=== PATIENT | male | born 1970 | race Caucasian/White ===

== ENCOUNTER 2020-03-23 07:59 | Outpatient (CLI) | payer OTHER, SELFPAY ==
--- NOTE | ~2020-03-23 | XR_ITS ---
XR shoulder LT min 2V 03/23/2020 08:28 INDICATION: Left shoulder pain PROCEDURE: 4 views left shoulder COMPARISON: No prior studies for comparison. FINDINGS: Fracture, dislocation or subluxation is not identified. There are mild degenerative changes of the acromioclavicular joint. The soft tissues appear within normal limits. No foreign bodies are identified. IMPRESSION: 1: Mild osteoarthritis of the acromioclavicular joint. Reviewed, dictated and finalized at location A.
[2020-03-23 08:21] LABS: Basophils Percent Auto 0.4 % (0.2-1.2); Eosinophils Absolute Auto 0.1 K/mm3 (0-0.3); Hematocrit 49.1 % (42.0-52.0); Hemoglobin 16.3 g/dL (14.0-18.0); Immature Granulocyte Absolute 0.03 K/mm3 (0.00-0.031); Immature Granulocyte Percent A 0.3 % (0-0.5); Lymphocytes Percent Auto 17.6 % (18.3-44.2); Mean Corpuscular HGB Conc 33.2 g/dl (32-36); Mean Corpuscular Hemoglobin 29.2 pg (26-34); Mean Corpuscular Volume 87.8 fl (80-100); Mean Platelet Volume 11.9 fl (7.4-10.4); Monocytes Absolute Auto 0.9 K/mm3 (0.1-0.6); Monocytes Percent Auto 7.7 % (2.6-8.5); Neutrophils Absolute Auto 8.3 K/mm3 (1.3-6.7); Platelet Count Result 173 k/mm3 (150-375); Red Blood Count 5.59 M/mm3 (4.6-6.20); Red Cell Distribution Width 13.3 % (11.5-14.5); White Blood Count 11.4 K/mm3 (4.5-10.0)
[2020-03-23 08:35] LABS: Blood Urea Nitrogen 12 mg/dL (9-20); Calcium 9.2 mg/dL (8.4-10.2); Carbon Dioxide 26 mmol/L (22-30); Chloride 105 mmol/L (98-107); Estimated Glomerular Filt Rate > 60; Glucose 108 mg/dL (75-110); Sodium 139 mmol/L (137-145)
== END 2020-03-23 08:00 | disposition home or self-care (01) ==
LOC: ANHLAB 08:00
PROVIDERS: PCP Family Medicine; Visit Provider Nurse Practitioner Family
DX: R53.83 Other fatigue (principal); M19.012 Primary osteoarthritis, left shoulder
CPT/HCPCS: 36415; 73030; 80048; 84443; 85025

== ENCOUNTER 2020-04-09 08:10 | Outpatient (CLI) | payer OTHER, SELFPAY ==
[2020-04-09 08:49] LABS: Basophils Percent Auto 0.3 % (0.2-1.2); Eosinophils Absolute Auto 0.2 K/mm3 (0-0.3); Eosinophils Percent Auto 1.2 % (0-4.4); Hematocrit 48.5 % (42.0-52.0); Hemoglobin 15.9 g/dL (14.0-18.0); Immature Granulocyte Absolute 0.05 K/mm3 (0.00-0.031); Immature Granulocyte Percent A 0.4 % (0-0.5); Lymphocytes Percent Auto 19.4 % (18.3-44.2); Mean Corpuscular HGB Conc 32.8 g/dl (32-36); Mean Corpuscular Hemoglobin 29.2 pg (26-34); Mean Platelet Volume 12.2 fl (7.4-10.4); Monocytes Absolute Auto 0.9 K/mm3 (0.1-0.6); Monocytes Percent Auto 7.5 % (2.6-8.5); Neutrophils Absolute Auto 8.8 K/mm3 (1.3-6.7); Neutrophils Percent Auto 71.2 % (45.5-73.1); Platelet Count Result 164 k/mm3 (150-375); Red Blood Count 5.45 M/mm3 (4.6-6.20); Red Cell Distribution Width 13.7 % (11.5-14.5); White Blood Count 12.4 K/mm3 (4.5-10.0)
[2020-04-09 10:15] LABS: Vitamin D 25 Hydroxy 48.7 ng/mL
[2020-04-12 23:53] LABS: Testosterone Total 581 ng/dL (250-1100)
== END 2020-04-09 08:11 | disposition home or self-care (01) ==
PROVIDERS: PCP Family Medicine; Visit Provider Nurse Practitioner Family
DX: F10.11 Alcohol abuse, in remission (principal); R53.83 Other fatigue; D72.829 Elevated white blood cell count, unspecified
CPT/HCPCS: 36415; 82306; 82607; 84403; 85025

== ENCOUNTER 2020-05-25 06:51 | Outpatient (CLI) | payer OTHER, SELFPAY ==
[2020-05-25 07:34] LABS: Hematocrit 44.4 % (42.0-52.0); Hemoglobin 14.8 g/dL (14.0-18.0); Mean Corpuscular HGB Conc 33.3 g/dl (32-36); Mean Corpuscular Hemoglobin 29.1 pg (26-34); Mean Corpuscular Volume 87.4 fl (80-100); Mean Platelet Volume 11.5 fl (7.4-10.4); Platelet Count Result 163 k/mm3 (150-375); Red Blood Count 5.08 M/mm3 (4.6-6.20); Red Cell Distribution Width 13.8 % (11.5-14.5); White Blood Count 10.1 K/mm3 (4.5-10.0)
== END 2020-05-25 06:52 | disposition home or self-care (01) ==
PROVIDERS: PCP Family Medicine; Visit Provider Nurse Practitioner Family
DX: D72.829 Elevated white blood cell count, unspecified (principal)
CPT/HCPCS: 36415; 85027

== ENCOUNTER 2020-09-30 07:46 | Outpatient (CLI) | payer OTHER, SELFPAY ==
[2020-09-30 09:07] LABS: Anion Gap 7 mmol/L (8-16); Blood Urea Nitrogen 14 mg/dL (9-20); Calcium 9.4 mg/dL (8.4-10.2); Carbon Dioxide 29 mmol/L (22-30); Chloride 103 mmol/L (98-107); Estimated Glomerular Filt Rate > 60; Glucose 113 mg/dL (75-110); Potassium 4.1 mmol/L (3.4-5.0); Sodium 139 mmol/L (137-145)
[2020-09-30 09:24] LABS: Add Urine Microscopic? YES; Appearance Urine Clear (Clear); Bilirubin Urine Negative (Negative); Blood Urine Negative (Negative); Color Urine Yellow (Yellow); Glucose Urine UA Negative (Negative); Ketones Urine Trace mg/dL (Negative); Leukocyte Esterase Ur Negative LEU/UL (Negative); Mucus Urine Few /lpf; Nitrate Urine Negative (Negative); Protein Urine Negative (Negative); RBC Urine 0-2 /hpf (0-2); Specific Grav Ur 1.025 (1.001-1.035); Squamous Epithelial Cell Urine Rare /hpf (Few); Transitional Epi Cells Urine Rare /hpf (None Seen); Urobilinogen Urine Negative mg/dL (<2.0); WBC Urine 0-3 /hpf
== END 2020-09-30 07:47 | disposition home or self-care (01) ==
PROVIDERS: PCP Family Medicine; Visit Provider Nurse Practitioner Family
DX: R35.1 Nocturia (principal)
CPT/HCPCS: 36415; 80048; 81001

== ENCOUNTER 2021-04-02 14:05 | Emergency (ER) | payer OTHER, SELFPAY ==
--- NOTE | ~2021-04-02 | CT_ITS ---
EXAMINATION: CT BRAIN W/O DATE: 04/02/2021 19:35 INDICATION: Headache TECHNIQUE: Computed tomography (CT) of the head was performed without intravenous contrast. The dose- length product was 605.33 mGy-cm. Automated exposure control and iterative reconstruction technique w ere employed. COMPARISON: No prior studies for comparison. FINDINGS: Normal brain parenchymal volume for age. Normal silva-white differentiation. No acute intrac ranial hemorrhage, infarction, mass or mass effect. No ventriculomegaly or midline shift. Midline sagittal images demonstrate a normal corpus callosum, c raniovertebral junction and sella turcica. Basilar cisterns are patent. There is moderate sinus disease of the left maxillary, ethmoid and frontal sinuses. Mastoids are pneu matized. No depressed skull fractures. IMPRESSION: 1. No acute intracranial abnormality. 2: Moderate sinusitis. Reviewed, dictated and finalized at location A.
--- NOTE | ~2021-04-02 | XR_ITS ---
EXAMINATION: XR chest 2V DATE: 04/02/2021 15:15 INDICATION: Anterior chest pain. Shortness of breath. TECHNIQUE: Frontal and lateral views of the chest were obtained. COMPARISON: Chest 2 views 03/12/2018, CT abdomen and pelvis 06/16/2017 FINDINGS: The lungs are hyperexpanded, consistent with emphysema. No pneumonia, pleural effusion, or pneumothorax. The heart size is normal. IMPRESSION: 1. Emphysema. Reviewed, dictated and finalized at location A. IMPRESSION: 1. Emphysema.
[2021-04-02 15:00] VITALS: BP 123/82; PULSE 88; RESP 17; TEMP 36.8; O2SAT 100
--- NOTE | 2021-04-02 15:04 | ECG_ITS ---
Measurements Intervals [place] Rate: 80 P: 67 MI: 129 QRS: -43 QRSD: 90 T: 61 QT: 360 QTc: 416 Interpretive Statements SINUS RHYTHM WITH SINUS ARRHYTHMIA ATRIAL PREMATURE COMPLEX LEFT AXIS DEVIATION INCOMPLETE RIGHT BUNDLE BRANCH BLOCK BORDERLINE ECG Electronically Signed On 04-02-2021 15:14:10 CDT by De Esquivel D.O.
[2021-04-02 17:01] VITALS: BP 119/76; PULSE 79; RESP 17; O2SAT 97
[2021-04-02 17:23] LABS: Basophils Percent Auto 0.4 % (0.2-1.2); Eosinophils Absolute Auto 0.1 K/mm3 (0-0.3); Eosinophils Percent Auto 0.7 % (0-4.4); Hemoglobin 16.4 g/dL (14.0-18.0); Immature Granulocyte Absolute 0.03 K/mm3 (0.00-0.031); Immature Granulocyte Percent A 0.3 % (0-0.5); Lymphocytes Absolute Auto 2.21 K/mm3 (0.9-3.2); Mean Corpuscular HGB Conc 33.5 g/dl (32-36); Mean Corpuscular Hemoglobin 29.4 pg (26-34); Mean Platelet Volume 11.4 fl (7.4-10.4); Monocytes Absolute Auto 0.7 K/mm3 (0.1-0.6); Monocytes Percent Auto 6.4 % (2.6-8.5); Neutrophils Percent Auto 72.2 % (45.5-73.1); Platelet Count Result 182 k/mm3 (150-375); Red Blood Count 5.57 M/mm3 (4.6-6.20); Red Cell Distribution Width 13.1 % (11.5-14.5)
[2021-04-02 17:31] LABS: Add Urine Microscopic? YES; Appearance Urine Clear (Clear); Bilirubin Urine Negative (Negative); Blood Urine 1+ (Negative); Color Urine Yellow (Yellow); Glucose Urine UA Negative (Negative); Ketones Urine Negative (Negative); Leukocyte Esterase Ur Negative LEU/UL (Negative); Mucus Urine Rare /lpf; Nitrate Urine Negative (Negative); Protein Urine 1+ mg/dL (Negative); Squamous Epithelial Cell Urine Rare /hpf (Few); WBC Urine 0-3 /hpf
[2021-04-02 17:33] LABS: Alanine Aminotransferase 23 U/L (4-50); Albumin Level 4.6 g/dL (3.5-5.1); Alkaline Phosphatase 80 U/L (38-126); Anion Gap 8 mmol/L (8-16); Aspartate Amino Transferase 37 U/L (17-59); Bilirubin,Total 0.9 mg/dL (0.2-1.3); Blood Urea Nitrogen 21 mg/dL (9-20); Calcium 9.7 mg/dL (8.4-10.2); Carbon Dioxide 31 mmol/L (22-30); Chloride 101 mmol/L (98-107); Estimated CRCL calculation 93 ml/min; Estimated Glomerular Filt Rate > 60; Glucose 91 mg/dL (75-110); Sodium 140 mmol/L (137-145)
[2021-04-02 17:37] LABS: Specific Grav Ur 1.032 (1.001-1.035)
--- NOTE | 2021-04-02 18:07 | ED.HA ---
HPI - Headache General Chief Complaint: Headache Stated Complaint: headache x 2 months/lethargy Time Seen by Provider: 04/02/21 17:01 History of Present Illness HPI Narrative: Patient is a 50-year-old male who presents with multiple complaints. Patient reports headache x2 months, reports intermittent shortness of breath, and states he feels dehydrated. Patient reports he works in the heat and was only able to work half day today. He reports general malaise. He denies significant medical history. He denies taking medications daily. MD elicited complaint: headache Related Data Home Medications Medication Instructions Recorded Confirmed sumatriptan succinate 50 mg tablet 50 mg PO ONCE 09/15/19 01/18/21 Allergies Allergy/AdvReac Type Severity Reaction Status Date / Time pseudoephedrine Allergy Unknown Unknown Verified 04/02/21 15:04 Review of Systems Review of Systems: Narrative: CONSTITUTIONAL: Denies fever, chills, or sweats. EYES: Denies visual changes, redness, or discharge. ENT: Denies rhinorrhea, congestion, sore throat, or otalgia. CARDIOVASCULAR: Denies chest pain, palpitations, or edema. RESPIRATORY: Denies cough, reports intermittent dyspnea. GASTROINTESTINAL: Denies abdominal pain, nausea, vomiting, or diarrhea. GENITOURINARY: Denies dysuria or hematuria. SKIN: Denies rash or itching. MUSCULOSKELETAL: Denies back pain, joint pain, or myalgia. NEUROLOGIC: Reports headache, denies numbness, dizziness, or weakness. PSYCHIATRIC: Denies anxiety or depression. 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 Gender identity (if verbalized by the patient): Male Comments At the time of signature, I have reviewed and agree with nursing past medical, surgical, social, and family history unless otherwise noted. Please see nursing chart for further information. There is no relevant family history pertinent to the presenting complaint. Exam Narrative: Exam Narrative: GENERAL: Well-appearing, well-nourished, and in no acute distress. HEAD: Normocephalic, atraumatic. EYES: EOMI. No redness or drainage. Conjunctiva are normal. ENT: Mucous membranes pink and moist. Nares clear. No rhinorrhea. TMs normal bilaterally. Throat normal. Maxillary and frontal sinus tenderness with palpation uvula midline. NECK: AROM. Supple. No lymphadenopathy. CHEST: No respiratory distress. Clear to auscultation. HEART: Regular rate and rhythm. GI: Soft, nontender without rebound, or guarding. No distention. Bowel sounds normal in all quadrants. MUSCULOSKELETAL: No bony tenderness. EXTREMITIES: Normal range of motion. No edema. SKIN: Warm, dry, no rash. NEURO: No focal deficits. Alert and oriented x3. Gait steady. PSYCH: Normal affect. No signs of depression or anxiety. Course Vital Signs Vital signs: Vital Signs Temperature 36.8 C 04/02/21 15:00 Pulse Rate 88 04/02/21 15:00 Respiratory Rate 17 04/02/21 15:00 Blood Pressure 123/82 04/02/21 15:00 Pulse Oximetry 100 04/02/21 15:00 Temperature 36.8 C 04/02/21 15:00 Pulse Rate 79 04/02/21 17:01 Respiratory Rate 17 04/02/21 17:01 Blood Pressure 119/76 04/02/21 17:01 Pulse Oximetry 97 04/02/21 17:01 Reviewed MDM - Headache MDM Narrative Medical decision making narrative: Patient CT reports moderate sinusitis, patient has been sympto
[2021-04-02 18:38] LABS: Troponin I < 0.012 ng/mL (0.000-0.034)
[2021-04-02 18:54] LABS: Lipase 85 U/L (23-300)
[2021-04-02] MEDS: SODIUM CHLORIDE 0.9% IV 1,000 ML 999 ML IV CONT (19:14)
[2021-04-02 19:25] LABS: Alanine Aminotransferase 24 U/L (4-50); Albumin Level 4.7 g/dL (3.5-5.1); Alkaline Phosphatase 84 U/L (38-126); Aspartate Amino Transferase 40 U/L (17-59)
[2021-04-02] MEDS: KETOROLAC 30 MG/ML VIAL (*BKC) IV PUSH (20:16)
[2021-04-02 21:05] VITALS: BP 138/87; PULSE 72; RESP 18; TEMP 37; O2SAT 99
== END 2021-04-02 21:05 | disposition home or self-care (01) ==
PROVIDERS: Emergency Medicine; Emergency Provider Nurse Practitioner; PCP Family Medicine
DX: J01.10 Acute frontal sinusitis, unspecified (principal); F17.210 Nicotine dependence, cigarettes, uncomplicated
CPT/HCPCS: 36415; 70450; 71046; 80053; 80076; 81001; 83690; 84484; 85025; 93005; 96361; 96374; 99284; J1885; J7030

== ENCOUNTER 2021-05-04 07:10 | Emergency (ER) | payer OTHER, SELFPAY ==
[2021-05-04 07:14] VITALS: BP 135/79; PULSE 92; RESP 16; TEMP 36.6; O2SAT 99
--- NOTE | 2021-05-04 08:14 | PC.NURSE ---
pt reporting pain to L leg, and that his L foot is always asleep . pt has hx of multiple slipped discs in neck and back. pt saw chiropracter last night and didn't receive any relief. pt taking norco at home for pain, has seen pain management previously for this complaint and states is in process of getting back to it . pt resting comfortably in stretcher with no complaints. pt last took norco at 0530 today.
--- NOTE | 2021-05-04 08:40 | PC.NURSE ---
pt reports no loss of bladder/bowel control nor difficulty urinating/defecating.
[2021-05-04] MEDS: KETOROLAC 30 MG/ML VIAL (*BKC) IM (09:13)
--- NOTE | 2021-05-04 09:49 | ED.BACK ---
HPI - Back Pain/Injury General Chief Complaint: Back Pain/Injury Stated Complaint: low back pain radiating to left leg Time Seen by Provider: 05/04/21 08:56 History of Present Illness HPI Narrative: Patient presents with low back pain. Patient reports a history of low back pain usually radiates down his right leg however this episode is radiating down his left leg. Pain is primarily in his left lower back, is achy, reports is difficult to sit down for any extended period of time as it makes his pain worse. Reports prior MRI findings showing low back problems . Reports paresthesias in his left leg denies any difficulty with his bowel or bladder. Denies any IV drug use denies major changes in weight. Related Data Allergies Allergy/AdvReac Type Severity Reaction Status Date / Time pseudoephedrine Allergy Unknown Unknown Verified 05/04/21 08:23 Review of Systems Review of Systems: CONSTITUTIONAL: Denies fever, chills, or sweats. EYES: Denies visual changes, redness, or discharge. ENT: Denies rhinorrhea, congestion, sore throat, or otalgia. CARDIOVASCULAR: Denies chest pain, palpitations, or edema. RESPIRATORY: Denies cough or dyspnea. GASTROINTESTINAL: Denies abdominal pain, nausea, vomiting, or diarrhea. GENITOURINARY: Denies dysuria or hematuria. SKIN: Denies rash or itching. MUSCULOSKELETAL: Denies joint pain, or myalgia. NEUROLOGIC: Denies headache, numbness, dizziness, or weakness. PSYCHIATRIC: Denies anxiety or depression. 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 Gender identity (if verbalized by the patient): Male Exam Narrative: GENERAL: Well-appearing, well-nourished, and in no acute distress. HEAD: Normocephalic, atraumatic. EYES: PERRLA and EOMI. ENT: Nares clear, no rhinorrhea or epistaxis. Mucous membranes moist. NECK: Supple. No masses. No JVD EXTREMITIES: Normal range of motion. No edema. Back: Tenderness palpation of the left lumbar paraspinal area no midline tenderness SKIN: Warm, dry, no rash. NEURO: 5 out of 5 strength in bilateral lower extremities with dorsi/plantarflexion, knee flexion/extension. Patient has 2+ reflexes symmetric at the knee. alert and oriented x3. PSYCH: Normal mood and affect. Course Reevaluation(s) Reevaluation #1: Patient ports mild improvement in the ER with supportive therapies. Patient comfortable with continuing supportive therapies at home and following up with specialty care patient reports she has all the contact information as he has previous seen a spine surgeon. Date: 05/04/21 Time: 10:00 Vital Signs Vital signs: Vital Signs Temperature 36.6 C 05/04/21 07:14 Pulse Rate 92 05/04/21 07:14 Respiratory Rate 16 05/04/21 07:14 Blood Pressure 135/79 05/04/21 07:14 Pulse Oximetry 99 05/04/21 07:14 Temperature 36.6 C 05/04/21 07:14 Pulse Rate 88 05/04/21 10:20 Respiratory Rate 16 05/04/21 10:20 Blood Pressure 144/77 H 05/04/21 10:20 Pulse Oximetry 100 05/04/21 10:20 MDM - Back Pain/Injury MDM Narrative Medical decision making narrative: H&P as above, vss, pt looks clinically well, exam without focal neurological deficits, prior imaging reviewed, additional labs/img considered, symptomatic relief available as needed, on reevaluation pt continues
[2021-05-04 10:20] VITALS: BP 144/77; PULSE 88; RESP 16; O2SAT 100
== END 2021-05-04 10:38 | disposition home or self-care (01) ==
PROVIDERS: Emergency Provider Emergency Medicine; PCP Family Medicine
DX: M54.42 Lumbago with sciatica, left side (principal); F17.200 Nicotine dependence, unspecified, uncomplicated
CPT/HCPCS: 96372; 99283; J1885

== ENCOUNTER 2021-06-25 09:28 | Outpatient (CLI) | payer OTHER, SELFPAY ==
--- NOTE | ~2021-06-25 | XR_ITS ---
XR hip RT min 2V DATE: 06/25/2021 09:52 INDICATION: Right hip pain. No injury. TECHNIQUE: AP and lateral views of right hip COMPARISON: None FINDINGS: No fracture, dislocation, avascular necrosis or bone destruction. Right hip joint space is relatively well preserved. The pubic symphysis and sacroiliac joints appear intact. IMPRESSION: No significant abnormality Reviewed, dictated and finalized at location B. IMPRESSION: No significant abnormality
== END 2021-06-25 09:29 | disposition home or self-care (01) ==
PROVIDERS: PCP Family Medicine; Visit Provider Nurse Practitioner Family
DX: M25.551 Pain in right hip (principal)
CPT/HCPCS: 73502

== ENCOUNTER 2022-03-24 15:30 | Outpatient (CLI) | payer OTHER, SELFPAY ==
--- NOTE | ~2022-03-24 | XR_ITS ---
XR abdomen/kub 1V 03/24/2022 16:23 Indication: Microscopic hematuria Procedure: KUB Comparison: No prior studies for comparison. Findings: There are left renal stones. Bowel gas pattern is nonobstructive. There is a left pseudoart iculation at L5-S1. Mild osteoarthritis of the hips. There is lower lumbar spondylosis. Nonobstructiv e bowel gas pattern with moderate colonic fecal loading. Impression: 1: Left nephrolithiasis. Reviewed, dictated and finalized at location A. Impression: 1: Left nephrolithiasis.
--- NOTE | ~2022-03-24 | CT_ITS ---
EXAMINATION: CT abdomen pelvis wo/w con DATE: 03/24/2022 16:23 INDICATION: Microscopic hematuria TECHNIQUE: Computed tomography (CT) of the abdomen and pelvis was performed without and subsequently with 130 CC Omnipaque 300 intravenous contrast. Automated exposure control and iterative reconstructi on technique were employed. Exam dose: 1213.76 mGy-cm total exam DLP. COMPARISON: 03/24/2022 KUB 06/16/2017 CT abdomen and pelvis FINDINGS: Mild discoid atelectasis or scarring at the medial segment of the middle lobe. The lung bas es are clear of infiltrate or consolidation. Normal heart size. No pericardial or pleural effusion. Approximately 3 mm mid right renal nonobstructing calculus. Approximately 2.5 mm lower pole right renal nonobstructing calculus. 3 x 4.6 mm and 3.6 x 5 mm lower pole left renal nonobstructing calculi. No ureteral calculus or hydroureteronephrosis. There is prostate enlargement and calcification. The urinary bladder appears unremarkable. Scattered small hepatic cysts of left and right hepatic lobe, the largest approximately 6 mm. The gallbladder appears normal. No bile duct or pancreatic duct dilatation. No pancreatic mass lesion or calcification. Normal splenic size. Normal morphology of the adrenal glands. No renal mass lesion. Normal caliber of the abdominal aorta. No intraperitoneal or retroperitoneal or pelvic mass lesion or adenopathy Severe degenerative disc disease at L4-5. There is moderate degenerative disc disease of the remainde r of the lumbar spine and some degenerative change of the lower thoracic spine. Bilateral moderately prominent osteoarthritis of the hips. No suspicious osteolytic or osteoblastic lesions are noted. Or ascites. Normal appendix. No bowel obstruction, bowel wall thickening, pneumatosis or intraperitoneal free air . IMPRESSION: Mild bilateral nonobstructive nephrolithiasis Prostate enlargement and calcification Scattered hepatic small cysts Reviewed, dictated and finalized at Location A. Reviewed, dictated and finalized at location B.
[2022-03-24 15:51] LABS: Estimated Glomerular Filt Rate > 60
== END 2022-03-24 15:31 ==
LOC: MICIMG 15:32
PROVIDERS: PCP Family Medicine; Visit Provider Urology
DX: R31.29 Other microscopic hematuria (principal); N20.0 Calculus of kidney; N40.1 Benign prostatic hyperplasia with lower urinary tract symptoms; K76.89 Other specified diseases of liver
CPT/HCPCS: 74018; 74178; Q9967

== ENCOUNTER 2022-04-12 08:12 | Outpatient (CLI) | payer OTHER, SELFPAY ==
--- NOTE | 2022-04-15 19:31 | WPDPFTINT ---
PFT Procedure Performed PFT Procedure Performed Plethysmography (Lung Vol) Diffusing Cap (DLCO) Flow Vol Loop Spirometry w/o Bronchodil PFT Interpretation DOS: 04/12/2022 REQUESTING: Brittany Payne NP REASON FOR TESTING: Abnormal chest x-ray PULMONARY FUNCTION TESTS Results are reliable and reproducible. Spirometry: FEV1 is 67%, 2.77 L, below normal range. FVC is 79%, 4.18 L, normal. The FEV1/FVC ratio is 66%, below normal, consistent with airflow obstruction. No bronchodilator was given. Lung volumes: Total lung capacity is 90%, 6.64 L, normal. FRC is 114%, 4.35 L, normal. ERV is 95%, 1.65 L, normal. RV is 113%, 2.46 L, normal. RV/TLC is 37%, increased, consistent with air trapping. Diffusion: DLCO is mildly decreased, 66%. DLCO/VA is 87%, normal. Flow volume loop: Mild scooping of the expiratory limb. IMPRESSION: Mild obstructive ventilatory impairment, mild air trapping, mild diffusion impairment. No bronchodilator was given. This is a nonspecific pattern. A trial of bronchodilator could be considered. Jennifer Warner MD
== END 2022-04-12 08:13 | disposition home or self-care (01) ==
PROVIDERS: PCP Family Medicine; Visit Provider Nurse Practitioner Adult Health
DX: R93.89 Abnormal findings on diagnostic imaging of other specified body structures (principal)
CPT/HCPCS: 94375; 94726; 94729

== ENCOUNTER 2022-04-21 10:10 | Outpatient (CLI) | payer OTHER, SELFPAY ==
[2022-04-21 10:44] LABS: Hematocrit 49.1 % (42.0-52.0); Hemoglobin 16.1 g/dL (14.0-18.0); Mean Corpuscular HGB Conc 32.8 g/dl (32-36); Mean Corpuscular Hemoglobin 29.7 pg (26-34); Mean Corpuscular Volume 90.4 fl (80-100); Mean Platelet Volume 11.7 fl (7.4-10.4); Platelet Count Result 180 k/mm3 (150-375); Red Blood Count 5.43 M/mm3 (4.6-6.20); Red Cell Distribution Width 13.2 % (11.5-14.5); White Blood Count 10.9 K/mm3 (4.5-10.0)
[2022-04-21 10:59] LABS: Alanine Aminotransferase 21 U/L (6-50); Albumin Level 4.6 g/dL (3.5-5.1); Alkaline Phosphatase 80 U/L (38-126); Anion Gap 10 mmol/L (8-16); Aspartate Amino Transferase 25 U/L (17-59); Bilirubin,Total 0.8 mg/dL (0.2-1.3); Blood Urea Nitrogen 13 mg/dL (9-20); Calcium 9.5 mg/dL (8.4-10.2); Carbon Dioxide 29 mmol/L (22-30); Chloride 101 mmol/L (98-107); Cholesterol 209 mg/dL (0-200); Creatine Kinase 34 U/L (55-170); Estimated Glomerular Filt Rate > 60; Glucose 102 mg/dL (65-110); HDL Direct 41 mg/dL; Potassium 4.1 mmol/L (3.4-5.0); Sodium 140 mmol/L (137-145); Triglycerides 147 mg/dL (<150)
[2022-04-21 11:09] LABS: LDL Cholesterol Direct 141 mg/dL
[2022-04-21 11:26] LABS: Thyroid Stimulating Hormone 0.487 uIU/mL (0.465-4.680)
[2022-04-21 12:02] LABS: Folic Acid 19.9 ng/mL (2.76->20)
[2022-04-21 12:10] LABS: Vitamin D 25 Hydroxy 58.1 ng/mL
[2022-04-24 14:58] LABS: CMV IgG Antibody <0.60 U/mL (<0.60)
[2022-04-26 11:23] LABS: CMV IgM Antibody <30.00 AU/mL (<30.00)
[2022-04-26 20:03] LABS: EBV Nuclear Ab Antibody >600.00 U/mL (<18.00); EBV Nuclear Ab Interpretation Past; EBV Virus Capsid Ag IgG Ab >750.00 U/mL (<18.00); EBV Virus Capsid Ag IgM Ab <36.00 U/mL (<36.00)
== END 2022-04-21 10:11 | disposition home or self-care (01) ==
LOC: ANHLAB 10:11
PROVIDERS: PCP Family Medicine; Visit Provider Nurse Practitioner Family
DX: E55.9 Vitamin D deficiency, unspecified (principal); M79.10 Myalgia, unspecified site; E78.5 Hyperlipidemia, unspecified; R53.83 Other fatigue
CPT/HCPCS: 36415; 80053; 80061; 82306; 82550; 82607; 82746; 83735; 84443; 85027; 86644; 86645; 86664; 86665

== ENCOUNTER 2022-09-14 01:49 | Day surgery (SDC) | payer OTHER, SELFPAY ==
[2022-09-07 13:11] VITALS: BMI 23.3
[2022-09-14 11:03] VITALS: BP 130/75; PULSE 105; RESP 18; TEMP 36.2; O2SAT 100
[2022-09-14] MEDS: LACTATED RINGERS 1,000 ML 150 ML IV CONT (11:04)
--- NOTE | 2022-09-14 11:56 | PM.HPGS ---
History of Present Illness History of Present Illness Consent: Risks, benefits, and alternatives have been discussed and questions answered. Patient agrees to proceed with procedure. Chief complaint: positive cologuard Narrative: Tramaine Marin Jr. is a 51 year old male here for first colonoscopy, had positive cologuard Review of Systems Constitutional: Constitutional: Denies headache(s) and Denies weakness Eyes: Eyes: Denies blurry vision ENT: Reports Normal hearing present, Denies headache(s) and Denies neck pain Cardiovascular: Cardiovascular: Denies chest pain and Denies dyspnea Respiratory: Respiratory: Denies dyspnea Gastrointestinal: Gastrointestinal: Reports no additional gastrointestinal complaints Genitourinary: Genitourinary: Denies dysuria Musculoskeletal: Musculoskeletal: Denies neck pain Integumentary/Breasts: Skin/Breast: Denies dry skin Neurologic: Reports Normal hearing present, Denies headache(s) and Denies weakness Psychiatric: Psychiatric: Denies anxiety Endocrine: Endocrine: Denies change in body appearance Hematologic/Lymphatic: Hematologic/Lymphatic: Denies easy bleeding Allergic/Immunologic: Allergic/Immunologic: Denies urticaria PMFSH Past Medical History Medical History BMI 23.0-23.9, adult BMI 25.0-25.9,adult History of alcohol abuse Tobacco abuse Surgical History Surgical History History of back surgery Family History Family History Father Cancer Agent orange exposure Mother Parkinson's disease Sibling Diabetes mellitus Social History Social History Smoking packs per day: 1 Smoking cigarettes per day: 20.0 Years smoked: 20 Smoking pack-years: 20.00 Smoking status: Current every day smoker Tobacco type: cigarettes Second hand tobacco smoke exposure: No Alcohol intake: former Substance use: current Substance use type: painkillers Living arrangements: with friend(s) 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 Gender identity (if verbalized by the patient): Male Sexual Orientation (if Verbalized by the Patient): Straight or Heterosexual Spiritual care concerns: No Agree to blood products: Yes Meds Home Medications and Allergies Home Medications Medication Instructions Recorded Confirmed Type albuterol sulfate 90 mcg/actuation 2 inh inhalation Q4H PRN shortness 10/29/21 09/14/22 Rx aerosol inhaler of breath or wheezing #8.5 grams ibuprofen 800 mg tablet 800 mg PO TID PRN pain #90 tabs 05/25/22 09/14/22 Rx hydrocodone 7.5 mg-acetaminophen 1 tablet PO Q8H PRN pain #90 tabs 08/19/22 09/14/22 Rx 325 mg tablet ketoconazole 2 % topical cream 1 applic topical TID #60 grams 08/19/22 09/14/22 Rx triamcinolone acetonide 0.5 % 1 applic topical TID #30 grams 08/19/22 09/14/22 Rx topical cream Allergies Allergy/AdvReac Type Severity Reaction Status Date / Time pseudoephedrine Allergy Unknown Unknown Verified 09/14/22 11:01 Vital Signs Vital Signs - 24 hr 09/14/22 11:03 Temperature 97.2 F L Pulse Rate 105 H Respiratory Rate 18 Blood Pressure 130/75 Pulse Oximetry 100 Oxygen Delivery Room Air Exam Const: General: comfortable and no acute distress HENMT: Face/Nose/Sinus: Normal nares present Eyes: General: appearance normal, both eyes and all related structures Neck: Neck: no JVD Resp: Auscultation: clear to auscultation bilaterally Cardio: Rate: regular rate Rhythm: regular rhythm GI: Inspection: non-distended GI Palp: Yes Soft to palpation Skin: General skin exam: normal color Neuro: General: gait normal Speech: normal speech Extrem: General: normal to inspection Psych: Mental Status: mental status grossly normal Assessmen
--- NOTE | 2022-09-14 11:57 | WPDANESEPPF ---
Anes - Initial Pre Proc Eval Procedure: Operation Date: 09/14/22 12:30 Proposed Procedures p Colonoscopy - Jesus Valles MD Date/Time: 09/14/22 11:57 Surgeon: Jesus Valles MD Pre Op Diagnosis: positive cologuard Patient Data Age: 51 Gender: M Height: 1.83 m Weight: 77.4 kg Last Vital Signs Temp 36.2 C L 09/14/22 11:03 Pulse 105 H 09/14/22 11:03 Resp 18 09/14/22 11:03 BP 130/75 09/14/22 11:03 Pulse Ox 100 09/14/22 11:03 O2 Del Method Room Air 09/14/22 11:03 Allergies Allergy/AdvReac Type Severity Reaction Status Date / Time pseudoephedrine Allergy Unknown Unknown Verified 09/14/22 11:01 Home Medications Medication Instructions Recorded Confirmed Type albuterol sulfate 90 mcg/actuation 2 inh inhalation Q4H PRN shortness 10/29/21 09/14/22 Rx aerosol inhaler of breath or wheezing #8.5 grams ibuprofen 800 mg tablet 800 mg PO TID PRN pain #90 tabs 05/25/22 09/14/22 Rx hydrocodone 7.5 mg-acetaminophen 1 tablet PO Q8H PRN pain #90 tabs 08/19/22 09/14/22 Rx 325 mg tablet ketoconazole 2 % topical cream 1 applic topical TID #60 grams 08/19/22 09/14/22 Rx triamcinolone acetonide 0.5 % 1 applic topical TID #30 grams 08/19/22 09/14/22 Rx topical cream Patient hx anesthesia problems: none Family hx anesthesia problems: none Results Review: All pre-operative results and documents have been reviewed as part of the pre-operative evaluation. [facility] Past Medical History Medical History BMI 23.0-23.9, adult BMI 25.0-25.9,adult History of alcohol abuse Tobacco abuse Surgical History Surgical History History of back surgery Family History Family History Father Cancer Agent orange exposure Mother Parkinson's disease Sibling Diabetes mellitus Social History Social History Smoking packs per day: 1 Smoking cigarettes per day: 20.0 Years smoked: 20 Smoking pack-years: 20.00 Smoking status: Current every day smoker Tobacco type: cigarettes Second hand tobacco smoke exposure: No Alcohol intake: former Substance use: current Substance use type: painkillers Living arrangements: with friend(s) 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 Gender identity (if verbalized by the patient): Male Sexual Orientation (if Verbalized by the Patient): Straight or Heterosexual Spiritual care concerns: No Agree to blood products: Yes Anes - Eval Final PreProcedure Day of Procedure 09/14/22 11:57 Patient weight: normal Heart: regular rate and rhythm Lungs: decreased breath sounds Airway: Mallampati scale class II Neurological: alert and oriented Last oral intake: >/= 8 hours ASA classification: III Emergent: no Anesthetic plan: proceed Anesthesia type and monitoring: general GIVS and standard monitoring Results Review: All pre-operative results and documents have been reviewed as part of the pre-operative evaluation. Informed Consent: The patient's anesthetic plan and its attendant risks and benefits were discussed with the patient/family/POA. Questions were solicited and answers provided to the satisfaction of the patient/family/POA.
[2022-09-14 12:20] VITALS: BP 91/58; PULSE 87; RESP 18; O2SAT 100
[2022-09-14 12:30] VITALS: BP 114/78; PULSE 77; RESP 18; O2SAT 100
[2022-09-14 12:40] VITALS: BP 124/82; PULSE 77; RESP 20; O2SAT 98
== END 2022-09-14 12:48 | disposition home or self-care (01) ==
PROVIDERS: PCP Family Medicine; Visit Provider Internal Medicine Gastroenterology
PROC: 0DJD8ZZ Inspection of Lower Intestinal Tract, Via Natural or Artificial Opening Endoscopic (ICD-10-PCS; CPT 45378; principal; 2022-09-14 12:30)
DX: R19.5 Other fecal abnormalities (principal); D12.3 Benign neoplasm of transverse colon; K64.8 Other hemorrhoids; Z79.51 Long term (current) use of inhaled steroids; F17.210 Nicotine dependence, cigarettes, uncomplicated; Z79.891 Long term (current) use of opiate analgesic
CPT/HCPCS: 45385; 88305; J2704; J7120

== ENCOUNTER 2022-12-15 08:44 | Outpatient (CLI) | payer OTHER, SELFPAY ==
--- NOTE | ~2022-12-15 | XR_ITS ---
EXAMINATION:XR cervical spine min 6V DATE: 12/15/2022 09:16 INDICATION: Neck pain TECHNIQUE: AP, lateral in neutral, flexion, extension, lateral swimmers and odontoid views of the cer vical spine are provided. COMPARISON: None FINDINGS: Alignment is normal. There is no hypermobility with flexion or extension. The odontoid proc ess is intact. No fracture is identified. The vertebral body heights are normal. There is mild loss o f intervertebral disc space height at C5-6. There is multilevel mild facet and uncovertebral joint os teoarthritis. Prevertebral soft tissues are normal. IMPRESSION: 1. Mild cervical spondylosis without acute findings. Reviewed, dictated and finalized at location L.
== END 2022-12-15 08:45 | disposition home or self-care (01) ==
PROVIDERS: PCP Family Medicine; Visit Provider Nurse Practitioner Family
DX: R20.0 Anesthesia of skin (principal); R20.2 Paresthesia of skin; M47.892 Other spondylosis, cervical region
CPT/HCPCS: 72052

== ENCOUNTER 2023-01-02 15:33 | Outpatient (CLI) | payer OTHER, SELFPAY ==
--- NOTE | ~2023-01-02 | MR_ITS ---
EXAMINATION: MR cervical spine wo con DATE: 01/02/2023 16:10 INDICATION: Neck pain. TECHNIQUE: Magnetic resonance imaging (MRI) of the cervical spine was performed without intravenous c ontrast. Sequences included sagittal T2-weighted FSE, sagittal T2-weighted FS FSE, sagittal T1-weight ed FSE, axial MERGE, and axial T2-weighted FSE. COMPARISON: Cervical spine radiographs 12/15/2022 FINDINGS: Bone alignment is normal. Vertebral body heights are normal. There is mildly decreased disc height at C5-C6 and C6-C7. The spinal cord signal intensity is normal. The following disc levels are specifically discussed: C2-C3: The disc does not extend beyond the endplate margin. There is no uncovertebral joint osteoarth ritis. There is mild bilateral facet joint osteoarthritis. There is no neural foraminal stenosis. The re is no central canal stenosis. C3-C4: There is a central extrusion. There is mild bilateral uncovertebral joint osteoarthritis. Ther e is moderate bilateral facet joint osteoarthritis. There is mild right and moderate left neural fora yi stenosis. There is mild central canal stenosis. C4-C5: The disc is bulging. There is mild bilateral uncovertebral joint osteoarthritis. There is serene re right and mild left facet joint osteoarthritis. There is moderate right and mild left neural dhaval inal stenosis. There is no central canal stenosis. C5-C6: The disc is bulging. There is severe bilateral uncovertebral joint osteoarthritis. There is mi ld bilateral facet joint osteoarthritis. There is severe right and moderate left neural foraminal britta nosis. There is mild central canal stenosis. C6-C7: The disc is bulging. There is mild right and moderate left uncovertebral joint osteoarthritis. There is mild bilateral facet joint osteoarthritis. There is mild bilateral neural foraminal stenosi s. There is mild central canal stenosis. C7-T1: The disc does not extend beyond the endplate margin. There is no uncovertebral joint osteoarth ritis. There is severe right and moderate left facet joint osteoarthritis. There is mild bilateral ne ural foraminal stenosis. There is no central canal stenosis. IMPRESSION: 1. Moderate cervical spondylosis. Reviewed, dictated and finalized at location A.
== END 2023-01-02 15:34 | disposition home or self-care (01) ==
PROVIDERS: PCP Family Medicine; Visit Provider Physician Assistant Medical
DX: M50.10 Cervical disc disorder with radiculopathy, unspecified cervical region (principal); M47.892 Other spondylosis, cervical region
CPT/HCPCS: 72141

== ENCOUNTER 2023-03-07 08:56 | Outpatient (CLI) | payer OTHER, SELFPAY ==
[2023-03-07 09:17] LABS: Basophils Percent Auto 0.3 % (0.2-1.2); Eosinophils Absolute Auto 0.1 K/mm3 (0-0.3); Eosinophils Percent Auto 1.4 % (0-4.4); Hematocrit 44.8 % (42.0-52.0); Hemoglobin 15.1 g/dL (14.0-18.0); Immature Granulocyte Absolute 0.02 K/mm3 (0.00-0.031); Immature Granulocyte Percent A 0.2 % (0-0.5); Lymphocytes Absolute Auto 1.93 K/mm3 (0.9-3.2); Lymphocytes Percent Auto 22.3 % (18.3-44.2); Mean Corpuscular HGB Conc 33.7 g/dl (32-36); Mean Corpuscular Hemoglobin 29.8 pg (26-34); Mean Corpuscular Volume 88.4 fl (80-100); Mean Platelet Volume 11.1 fl (7.4-10.4); Monocytes Absolute Auto 0.6 K/mm3 (0.1-0.6); Monocytes Percent Auto 6.9 % (2.6-8.5); Neutrophils Absolute Auto 5.9 K/mm3 (1.3-6.7); Neutrophils Percent Auto 68.9 % (45.5-73.1); Platelet Count Result 147 k/mm3 (150-375); Red Blood Count 5.07 M/mm3 (4.6-6.20); Red Cell Distribution Width 13.2 % (11.5-14.5); White Blood Count 8.6 K/mm3 (4.5-10.0)
[2023-03-07 09:29] LABS: Rheumatoid Factor < 12.0 IU/ML (<12)
[2023-03-07 09:30] LABS: Alanine Aminotransferase 26 U/L (6-50); Albumin Level 4.3 g/dL (3.5-5.1); Alkaline Phosphatase 71 U/L (38-126); Anion Gap 6 mmol/L (8-16); Aspartate Amino Transferase 33 U/L (17-59); Bilirubin,Total 0.9 mg/dL (0.2-1.3); Blood Urea Nitrogen 14 mg/dL (9-20); CRP 0.7 mg/dL (<1.0); Calcium 8.7 mg/dL (8.4-10.2); Carbon Dioxide 30 mmol/L (22-30); Chloride 102 mmol/L (98-107); Cholesterol 185 mg/dL (0-200); Estimated Glomerular Filt Rate > 60; Glucose 129 mg/dL (65-110); HDL Direct 36 mg/dL; Potassium 3.8 mmol/L (3.4-5.0); Sodium 138 mmol/L (137-145); Triglycerides 119 mg/dL (<150)
[2023-03-07 09:40] LABS: LDL Cholesterol Direct 126 mg/dL
[2023-03-07 10:12] LABS: Erythrocyte Sedimentation Rate 5 mm/hr (0-20)
[2023-03-09 10:57] LABS: Hemoglobin A1C 5.5 % (<5.7)
[2023-03-11 08:29] LABS: Anti Nuclear Antibody Pattern Nuclear, Nucleolar; Anti Nuclear Antibody Titer 1:40 (Negative)
== END 2023-03-07 08:57 | disposition home or self-care (01) ==
PROVIDERS: PCP Family Medicine; Visit Provider Nurse Practitioner Family
DX: M25.50 Pain in unspecified joint (principal); E78.5 Hyperlipidemia, unspecified; F10.11 Alcohol abuse, in remission; R63.4 Abnormal weight loss
CPT/HCPCS: 36415; 80053; 80061; 83036; 84443; 85025; 85652; 86038; 86039; 86140; 86430

== ENCOUNTER 2023-03-16 10:21 | Outpatient (CLI) | payer OTHER, SELFPAY ==
--- NOTE | ~2023-03-16 | CT_ITS ---
EXAMINATION: CT lung screening DATE: 03/16/2023 10:46 INDICATION: Personal history of nicotine dependence TECHNIQUE: Computed tomography (CT) of the chest was performed without intravenous contrast. The dose -length product was 112.41 mGy-cm. Automated exposure control and iterative reconstruction technique were employed. COMPARISON: Chest dated 04/02/2021 FINDINGS: Heart size is normal. Borderline sized mediastinal lymph nodes measuring up to 7 mm short a xis, likely reactive. No significant pleural or pericardial effusion. There are nonobstructing bilate ral renal stones. There is emphysema. No endobronchial lesion. No pneumothorax. There is a 3 mm right upper lobe nodule, image 46. There are a few scattered smaller 1-2 mm nodules predominantly affectin g the upper lobes. Mild thoracic spondylosis. No acute osseous abnormality. IMPRESSION: 1. Lung-RADS category 2: Benign appearance or behavior. Continue annual screening with noncontrast lo w-dose chest CT in 12 months. Reviewed, dictated and finalized at location L. IMPRESSION: 1. Lung-RADS category 2: Benign appearance or behavior. Continue annual screeni ng with noncontrast low-dose chest CT in 12 months.
== END 2023-03-16 10:22 | disposition home or self-care (01) ==
PROVIDERS: PCP Family Medicine; Visit Provider Nurse Practitioner Family
DX: Z12.2 Encounter for screening for malignant neoplasm of respiratory organs (principal); Z87.891 Personal history of nicotine dependence
CPT/HCPCS: 71271

== ENCOUNTER 2023-07-06 12:10 | Outpatient (CLI) | payer OTHER, SELFPAY ==
[2023-07-06 12:55] LABS: Hematocrit 44.7 % (42.0-52.0); Hemoglobin 15.1 g/dL (14.0-18.0); Mean Corpuscular HGB Conc 33.8 g/dl (32-36); Mean Corpuscular Hemoglobin 30.3 pg (26-34); Mean Corpuscular Volume 89.8 fl (80-100); Platelet Count Result 165 k/mm3 (150-375); Red Blood Count 4.98 M/mm3 (4.6-6.20); Red Cell Distribution Width 12.7 % (11.5-14.5); White Blood Count 9.4 K/mm3 (4.5-10.0)
[2023-07-06 13:10] LABS: Alanine Aminotransferase 23 U/L (6-50); Albumin Level 4.5 g/dL (3.5-5.1); Alkaline Phosphatase 70 U/L (38-126); Anion Gap 5 mmol/L (8-16); Aspartate Amino Transferase 31 U/L (17-59); Bilirubin,Total 0.8 mg/dL (0.2-1.3); Blood Urea Nitrogen 13 mg/dL (9-20); Calcium 9.1 mg/dL (8.4-10.2); Carbon Dioxide 28 mmol/L (22-30); Chloride 104 mmol/L (98-107); Estimated Glomerular Filt Rate > 60; Glucose 90 mg/dL (65-110); Sodium 137 mmol/L (137-145)
[2023-07-06 13:51] LABS: Erythrocyte Sedimentation Rate 8 mm/hr (0-20)
[2023-07-08 13:42] LABS: NIL 0.01 IU/mL; Quantiferon TB Plus, 1T NEGATIVE (NEGATIVE)
[2023-07-10 01:44] LABS: Angiotensin Converting Enzyme 55 U/L (9-67)
[2023-07-10 17:10] LABS: SM Antibody <1.0; SM/RNP Antibody <1.0; SS-A <1.0; SS-B <1.0
[2023-07-11 10:07] LABS: Anti Cyclic Citrullinated Pept <16 Units (<20)
[2023-07-12 15:12] LABS: Lupus dRVVT Screen 44 sec (<=45); PTT-LA Screen 33 sec (<=40)
== END 2023-07-06 12:11 | disposition home or self-care (01) ==
LOC: ANHLAB 12:11
PROVIDERS: PCP Family Medicine; Visit Provider Internal Medicine
DX: R63.4 Abnormal weight loss (principal); R76.8 Other specified abnormal immunological findings in serum; M50.10 Cervical disc disorder with radiculopathy, unspecified cervical region; Z12.5 Encounter for screening for malignant neoplasm of prostate; M19.90 Unspecified osteoarthritis, unspecified site
CPT/HCPCS: 36415; 80053; 82164; 85027; 85613; 85652; 85730; 86200; 86225; 86235; 86480

== ENCOUNTER 2023-09-01 09:10 | Outpatient (CLI) | payer OTHER, SELFPAY ==
[2023-09-01 10:39] LABS: Hemoglobin A1C 5.3 % (<5.7)
[2023-09-01 10:47] LABS: Prostate Specific Antigen 1.9 ng/mL (< OR = 4.0)
[2023-09-01 10:49] LABS: Vitamin D 25 Hydroxy 23.4 ng/mL
== END 2023-09-01 09:11 | disposition home or self-care (01) ==
LOC: ANHLAB 09:11
PROVIDERS: PCP Family Medicine; Visit Provider Physician Assistant Medical
DX: R63.4 Abnormal weight loss (principal); R39.15 Urgency of urination; R73.09 Other abnormal glucose; Z12.5 Encounter for screening for malignant neoplasm of prostate; E55.9 Vitamin D deficiency, unspecified
CPT/HCPCS: 36415; 82306; 83036; 84153; G0103

== ENCOUNTER 2023-09-26 10:53 | Outpatient (CLI) | payer OTHER, SELFPAY ==
--- NOTE | ~2023-09-26 | XR_ITS ---
EXAM: XR_[id number]_CR DATE: 09/26/2023 11:20 HISTORY: STATUS POST C5-6 CERVICAL FUSION . COMPARISON: 12/15/2022. FINDINGS: Craniocervical association and atlantoaxial joint are aligned. Moderate degenerative lee e at the atlantoaxial joint. No prevertebral soft tissue swelling. 3 mm anterolisthesis at C4-5. Unco mplicated ACDF hardware and interbody device at C5-6. Vertebral body heights are maintained. Normal d isc spaces. Mild multilevel facet arthropathy. IMPRESSION: Uncomplicated ACDF at C5-6. Grade 1 anterolisthesis at C4-5. Reviewed, dictated and finalized at location K. X SYSTEMS ENGINEER
== END 2023-09-26 10:54 | disposition home or self-care (01) ==
LOC: ANHIMG 10:54
PROVIDERS: PCP Family Medicine; Visit Provider Neurological Surgery
DX: Z98.1 Arthrodesis status (principal)
CPT/HCPCS: 72040

== ENCOUNTER 2024-09-18 12:56 | Emergency (ER) | payer BC, SELFPAY ==
--- NOTE | ~2024-09-18 | CT_ITS ---
EXAMINATION: CT thoracic lumbar w con DATE: 09/18/2024 14:31 INDICATION: Lumbar swelling. Postop infection. TECHNIQUE: Computed tomography (CT) of the thoracic and lumbar spine was performed with 100 mL Omnipa que 350 intravenous contrast. Automated exposure control and iterative reconstruction technique were employed. The dose-length product was 1341.36 mGy-cm. COMPARISON: CT abdomen and pelvis 03/24/2022 FINDINGS: CT THORACIC SPINE: There is mild emphysema. There are two 4 mm stones in left kidney. There is 5 degr ees dextrocurvature of thoracic spine. There is mild chronic anterior wedging of T7, T11, and T12 mirta tebral bodies. There is mildly decreased disc height from T3-T4 through T12-L1. There is multilevel m [id number] facet joint osteoarthritis. There is mild neural foraminal stenosis at a few levels o n either side. On the right, there is moderate neural foraminal stenosis at T9-T10. There is mild trey tral canal stenosis at T9-T10 and T10-11. CT LUMBAR SPINE: There is 2 mm retrolisthesis of L2 on L3. There is mild chronic anterior wedging of L1 vertebral body. There is moderately decreased disc height at L1-L2 and L2-L3. There are changes of anterior fusion procedure at L3-L4. There is severely decreased disc height at L4-L5 with interbody fusion. There is mildly decreased disc height at L5-S1. There are changes of posterior fusion procedu re from L3 to L5 with pedicle screws. There is a 10.7 x 3.6 x 2.3 cm rim-enhancing subcutaneous fluid collection posterior to L2-L5. The following disc levels are specifically discussed: L1-L2: The disc is bulging. There is severe right and mild left facet joint osteoarthritis. There is mild bilateral neural foraminal stenosis. There is mild central canal stenosis. L2-L3: The disc is bulging. There is mild bilateral facet joint osteoarthritis. There is moderate marcelino ateral neural foraminal stenosis. There is moderate central canal stenosis. L3-L4: There is no facet joint hypertrophy. There is mild bilateral neural foraminal stenosis with po sterior decompression. There is no central canal stenosis. There is posterior decompression. L4-L5: There is mild bilateral facet joint hypertrophy. There is moderate bilateral neural foraminal stenosis. There is mild central canal stenosis with posterior decompression. L5-S1: The disc does not extend beyond the endplate margin. There is severe bilateral facet joint ost eoarthritis. There is mild right neural foraminal stenosis. There is no central canal stenosis. IMPRESSION: 1. Mild thoracic spondylosis and moderate lumbar spondylosis. 2. Anterior fusion procedure at L3-L4. 3. Posterior fusion procedure from L3 to L5. 4. 10.3 x 3.6 x 2.3 cm rim-enhancing subcutaneous fluid collection posterior to L2-L5, consistent wit h seroma versus subacute hematoma versus abscess. Reviewed, dictated and finalized at location A. ECTING AND TESTING LEAD HAND IMPRESSION: 1. Mild thoracic spondylosis and moderate lumbar spondylosis. 2. Anterior fusion procedure at L3-L4. 3. Posterior fusion procedure from L3 to L5. 4. 10.3 x 3.6 x 2.3 cm rim-enhancing subcutaneous fluid collection posterior to L2-L5, consistent with seroma versus subacute hematoma versus abscess.
[2024-09-18 12:59] VITALS: BP 171/90; PULSE 98; RESP 18; TEMP 36.2; O2SAT 100
--- NOTE | 2024-09-18 13:08 | ED.GENADULT ---
HPI - General Adult General Chief complaint: Back Pain/Injury Stated complaint: fever, , back pain Source: patient Mode of arrival: ambulatory Limitations: no limitations History of Present Illness HPI narrative: 53-year-old white male status post surgery on his L2-3 and 4 August 10 And was fine until 2 days ago he started having back pain 7/10 over his suture line and tenderness hand redness and swelling and a fever of 100?. has been taking oxycodone since surgery for pain. patient states he would take Tylenol and the temperature would go down. Today patient took Tylenol at 11:30 a.m. to 12 noon today. He had pop in his right hip without any pain and no hip pain. denies any numbness or weakness cough sore throat runny nose other areas of redness or swelling lumps or bumps nausea vomiting problems voiding or stooling dizziness or lightheadedness or any other complaints. Related Data Home Medications ?Medication ?Instructions ?Recorded ?Confirmed ?Last Taken ?Type methocarbamol 750 mg tablet 750 mg PO Q8H 09/18/24 09/18/24 Unknown History oxycodone-acetaminophen 5 mg-325 1 tablet PO Q12H 09/18/24 09/18/24 Unknown History mg tablet pregabalin 75 mg capsule 75 mg PO Q12H 09/18/24 09/18/24 Unknown History Allergies Allergy/AdvReac Type Severity Reaction Status Date / Time gabapentin AdvReac Intermediate Nausea Verified 09/18/24 13:02 pseudoephedrine AdvReac Intermediate Shakiness Verified 09/18/24 13:02 Review of Systems Review of Systems: All systems reviewed & are unremarkable except as noted in HPI and below [facility] Past Medical History Medical History BMI 26.0-26.9,adult Unexplained weight loss Claustrophobia BMI 23.0-23.9, adult BMI 25.0-25.9,adult Tobacco abuse History of alcohol abuse Surgical History Surgical History H/O cervical spine surgery History of back surgery Family History Family History Father Cancer Agent orange exposure Mother Parkinson's disease Sibling Diabetes mellitus Social History Social History Smoking packs per day: 1 Smoking cigarettes per day: 20.0 Years smoked: 20 Smoking pack-years: 20.00 Smoking status: Current every day smoker Tobacco type: cigarettes Second hand tobacco smoke exposure: No Alcohol intake: former Substance use: current Substance use type: painkillers Lack of Transportation: No Lack of Food: Never True Current Housing: I Have Housing Concerned About Future Housing: No Difficulty Paying Gas/Electric Bills: No Difficulty Paying for Meds: No Currently Unemployed: No Education: High School Diploma/GED Difficulty w/ Childcare or Family Care: No Living arrangements: with family Occupation/Education: occupation 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 Gender identity (if verbalized by the patient): Male Sexual Orientation (if Verbalized by the Patient): Straight or Heterosexual Spiritual care concerns: No Agree to blood products: Yes Exam Narrative: White male patient with no apparent distress.? Head normocephalic, atraumatic.? Eyes conjunctiva pink sclera nonicteric.? Extraocular movements are intact.? Ears externally normal.? Oropharynx is clear with moist mucous membranes without exudates.? Neck is supple nontender no lymphadenopathy.? Back Has a lumbar surgical scar at the top of the scar there is a small pinpoint area is surrounded by erythema the whole length of the scar is swollen tender and boggy and the area is erythematous and blanches. Thoracic spine is nontender. Lungs are clear.? Heart is regular rate and rhythm without murmurs gallops or rubs.? Chest wall nontender. Abdomen is soft and nontender no hepatosplenomegaly or masses no CVA tenderness no abdominal bruits.? Extremities no cyanosis clubbing or edema.? Skin is warm and dry without rashes or lesions.? Neurological patient is alert and oriented x4.? Motor and sensory grossly intact.? Gait is normal. Course Vital Signs Vital signs: Vital Signs Temperature 36.2 C L 09/18/24 12:59 Pulse Rate 98 09/18/24 12:59 Respiratory Rate 18 09/18/24 12:59 Blood Pressure 171/90 H 09/18/24 12:59 Pulse Oximetry 100 09/18/24 12:59 Oxygen Delivery Room Air 09/18/24 12:59 Temperature 37.0 C 09/18/24 15:50 Pulse Rate 71 09/18/24 15:50 Respiratory Rate 18 09/18/24 15:50 Blood Pressure 125/66 09/18/24 15:50 Pulse Oximetry 100 09/18/24 15:50 Oxygen Delivery Room Air 09/18/24 15:50 Medical Decision Making MDM Narrative Medical decision making narrative: Patient placed in room: One ? History and physical was performed. blood cultures were obtained Put in a call to [facility] to Dr. Brody his surgeon to discuss whether to do MRI versus CT of his spine. 2:[address] Brody who recommended CT IV contrast lumbar spine then call him back at [phone]. Osmo 282 total bilirubin 1.2 rest of CMP was normal PTT 31.8 with a normal PT/INR.? Lactic acid was normal 1.1, COVID flu RSV was negative Sed rate 33, PCR 25 CBC white count 16.6 with on her and 34 platelets hemoglobin 13.[address] lumbar thoracic spine per radiologist's: IMPRESSION: 1. Mild thoracic spondylosis and moderate lumbar spondylosis. 2. Anterior fusion procedure at L3-L4. 3. Posterior fusion procedure from L3 to L5. 4. 10.3 x 3.6 x 2.3 cm rim-enhancing subcutaneous fluid collection posterior to L2-L5, consistent with seroma versus subacute hematoma versus abscess. Independent Historian: patient External Source Review: Differential Dx includes but not limited to: cellulitis spinal abscess postop infection Medications were Reviewed: home meds reviewed Medications given: pharmacy dose of vancomycin at 2250 mg was given IV. Patient received 2 g of Rocephin IM with lidocaine, 1 g each hip. Started at 4:33 p.m. Independently Interpreted by me: CT IV contrast the thoracic and lumbar spine showed a abscess subcutaneously as independently interpreted by me. Shared decision Making: evaluation was discussed all questions were asked and answered patient agreed with the plan. patient wants to drive himself to [facility] I think this is reasonable. patient was instructed that takes nothing by mouth during transport. Transfer line will call us back after talking to Dr. Brody. Social Situation Impacting Patients Care: Discussed with accepted transfer to [facility] at 3:[address] Astudillo hospitalist at [facility] accepted patient she recommended starting vancomycin per pharmacist and Rocephin 2 g IV they would call us with a bed 1. One becomes available. DISCHARGE DIAGNOSIS: Subcutaneous abscess posterior to L2-L5 10.3 x 3.6 x 2.3 cm DISPOSITION : transferred to [facility] to the care of Dr. Brody CONDITION AT DISCHARGE: stable Vital Signs Vital Signs: Vital Signs Temperature 36.2 C L 09/18/24 12:59 Pulse Rate 98 09/18/24 12:59 Respiratory Rate 18 09/18/24 12:59 Blood Pressure 171/90 H 09/18/24 12:59 Pulse Oximetry 100 09/18/24 12:59 Oxygen Delivery Room Air 09/18/24 12:59 Temperature 37.0 C 09/18/24 15:50 Pulse Rate 71 09/18/24 15:50 Respiratory Rate 18 09/18/24 15:50 Blood Pressure 125/66 09/18/24 15:50 Pulse Oximetry 100 09/18/24 15:50 Oxygen Delivery Room Air 09/18/24 15:50 Lab Data 09/18/24 13:25 09/18/24 13:25 Labs: Lab Results 09/18/24 Range/Units 13:25 WBC 16.6 H (4.8-10.8) K/mm3 RBC 4.62 L (4.70-6.10) M/mm3 Hgb 13.8 L (14.0-18.0) g/dL Hct 41.0 (40.0-54.0) % MCV 88.7 (78.0-102.0) fL MCH 29.9 (27.0-31.0) pg MCHC 33.7 (32-36) g/dL RDW 13.0 (11.6-14.4) % Plt Count 134 L (150-420) K/mm3 MPV 11.4 H (8.7-11.0) fl % Immature Plt Fraction 5.6 (1.0-7.0) % ESR 33 H (0-20) mm/hr PT 10.6 (9.50-12.1) Seconds INR 1.0 APTT 31.8 H (23.9-30.70) Sec Sodium 136 (136-145) mmol/L Potassium 3.6 (3.5-5.1) mmol/L Chloride 98 (98-108) mmol/L Carbon Dioxide 28 (21-32) mmol/L Anion Gap 10 (4-12) mmol/L BUN 10 (7-18) mg/dL Creatinine 0.84 (0.70-1.30) mg/dL Estim Creat Clear Calc 98 ml/min Estimated GFR > 60 (59 - ) Glucose 122 H (70-99) mg/dL Calculated Osmolality 282 L (285-295) mOsm/kg Lactic Acid 1.1 (0.4-2.0) mmol/L Calcium 8.9 (8.5-10.1) mg/dL Total Bilirubin 1.2 H (0.00-1.00) mg/dL AST 16 (15-37) U/L ALT 19 (16-63) U/L Alkaline Phosphatase 90 (46-116) U/L C-Reactive Protein > 25.0 H (0.0-0.9) mg/dL Total Protein 7.2 (6.4-8.2) g/dL Albumin 3.4 (3.4-5.0) g/dL Influenza A (RT-PCR) Negative (Negative) Influenza B (RT-PCR) Negative (Negative) RSV (RT-PCR) Negative (Negative) SARS-CoV-2 RNA (RT-PCR) Negative (Negative) Discharge Plan Discharge Clinical Impression: Subcutaneous abscess Qualifiers: Site of cutaneous abscess: other site Qualified Code(s): L02.818 - Cutaneous abscess of other sites Patient Disposition: Acute Care Hospital Condition: Stable Additional Instructions: patient transferred to [facility] afebrile to the care of Dr. Astudillo and Dr. Brody via ground ambulance. Patient Language: Jamaican Prescriptions: No Action methocarbamol 750 mg tablet 750 mg PO Q8H oxycodone-acetaminophen 5-325 mg tablet 1 tablet PO Q12H pregabalin 75 mg capsule 75 mg PO Q12H ketoconazole 2 % cream 1 applic topical TID Qty: 60 1RF Follow-up/Referrals: UNKNOWN,DOCTOR [Non-Staff] - Time of Disposition: 17:34
[2024-09-18 13:37] LABS: Hemoglobin 13.8 g/dL (14.0-18.0); Immature Platelet Fraction Pct 5.6 % (1.0-7.0); Mean Corpuscular HGB Conc 33.7 g/dL (32-36); Mean Corpuscular Hemoglobin 29.9 pg (27.0-31.0); Mean Corpuscular Volume 88.7 fL (78.0-102.0); Mean Platelet Volume 11.4 fl (8.7-11.0); Platelet Count Result 134 K/mm3 (150-420); Red Blood Count 4.62 M/mm3 (4.70-6.10); White Blood Count 16.6 K/mm3 (4.8-10.8)
[2024-09-18 13:50] LABS: Partial Thromboplastin Time 31.8 Sec (23.9-30.70); Prothrombin Time 10.6 Seconds (9.50-12.1)
[2024-09-18 13:51] LABS: Alanine Aminotransferase 19 U/L (16-63); Albumin Level 3.4 g/dL (3.4-5.0); Alkaline Phosphatase 90 U/L (46-116); Anion Gap 10 mmol/L (4-12); Aspartate Amino Transferase 16 U/L (15-37); Bilirubin,Total 1.2 mg/dL (0.00-1.00); Blood Urea Nitrogen 10 mg/dL (7-18); Calcium 8.9 mg/dL (8.5-10.1); Carbon Dioxide 28 mmol/L (21-32); Chloride 98 mmol/L (98-108); Estimated CRCL calculation 98 ml/min; Estimated Glomerular Filt Rate > 60; Glucose 122 mg/dL (70-99); Osmolality Calculated 282 mOsm/kg (285-295); Potassium 3.6 mmol/L (3.5-5.1); Sodium 136 mmol/L (136-145); Total Protein 7.2 g/dL (6.4-8.2)
[2024-09-18 13:54] LABS: Lactic Acid Reflex 1.1 mmol/L (0.4-2.0)
[2024-09-18 14:15] LABS: CRP > 25.0 mg/dL (0.0-0.9)
[2024-09-18 14:40] LABS: Erythrocyte Sedimentation Rate 33 mm/hr (0-20); Influenza A QL RT-PCR Negative (Negative); Influenza B QL RT-PCR Negative (Negative); RSV RNA, RT-PCR Negative (Negative); SARS-CoV-2 RNA PCR Negative (Negative)
[2024-09-18 15:02] VITALS: BP 132/71; PULSE 91; RESP 18; TEMP 36.6; O2SAT 100
[2024-09-18 15:50] VITALS: BP 125/66; PULSE 71; RESP 18; TEMP 37; O2SAT 100
[2024-09-18] MEDS: cefTRIAXone 1 GM, LIDOCAINE 1% LOCAL INJ 2.1 ML IM ×2 (16:31→16:32)
[2024-09-18] MEDS: VANCOMYCIN 1,250 MG/NS 250 ML 1,250 MG/250 ML BAG 166.67 MG IVPB (16:46)
[2024-09-18] MEDS: NICOTINE (*PBKC) 21 MG PATCH 1 PATCH TRANSDERM (16:47)
[2024-09-18 17:50] VITALS: BP 122/69; PULSE 82; RESP 16; TEMP 36.8; O2SAT 97
[2024-09-18] MEDS: VANCOMYCIN 1,000 MG/NS 250 ML 1,000 MG/250 ML BAG 250 MG IVPB (18:19)
[2024-09-18 18:25] VITALS: BP 119/79; PULSE 80; RESP 18; TEMP 36.9; O2SAT 100
--- NOTE | 2024-09-21 12:50 | PC.NURSE ---
preliminary blood cultures x2 reviewed. no growth to date
--- OUTSIDE RECORDS SUMMARY | 2024-09-25 06:38 | XMS_ITS ---
Author Organization [facility] Address [id number] [place] [address] [address] [place] [address] Care Team Providers Care Software Test And Validation Engineer Name Role Phone Kevin Brody MD Unavailable Unavailable Bailey Vo PA-C Unavailable [phone] REASON FOR VISIT meds Encounters Encounter Location Date Provider Diagnosis [facility] [address] [facility] [address] [place] [address] 09/05/2024 Bailey Vo Plan Of Treatment No Information Progress Notes * Tramaine MARIN LDOB:1970 (53 yo M)Acc No.[id number]:09/05/2024 Progress Notes Patient:?Tramaine MARIN Appointment Provider:?CLAUDIA Valentino :1970???Age:53 Y???Sex:Male Andrew e:09/05/2024 Phone: Address:[address] [place], [place] [phone] Subjective: * Chief Complaints: * ???1. Meds. * Medical History:? Objective: * Vitals:? Assessment: Plan: * Treatment: * Billing Information: * Visit Code:? * Procedure Codes:? * Electronic signature of CLAUDIA Banks PA-C on 09/25/2024 at 06:38 AM PHYSICAL LABORATORY ASSISTANT Sign off status: Pending * Appointment Provider:?CLAUDIA Valentino Date:?09/05/2024 Generated for Printing/Faxing/eTransmitting on:?09/25/2024 06:38 AM PHYSICAL LABORATORY ASSISTANT
--- OUTSIDE RECORDS SUMMARY | 2024-09-25 06:39 | XMS_ITS | Continuity of Care Document ---
Author Organization [facility] Address [address] [place], [place] [id number] Encounter [facility] Financial Number [id number] Date(s): 03/03/24 - 03/03/[address] [id number] Discharge Disposition: Home or Self Care Attending Physician: Twan Castillo Admitting Physician: Twan Castillo Referring Physician: Twan Castillo Radiology * Event Display: CDI MR Lumbar w/o Contrast Authored Date: [id number] * Event Display: CDI MR Lumbar w/o Contrast Authored Date: [id number] [facility] Completed on: 03/03/2024 05:03 PM (CT) MRI LUMBAR SPINE WITHOUT CONTRAST COMPARISON: None. HISTORY: Lower back pain, prior lumbar surgery TECHNIQUE: Noncontrast MRI imaging was performed of the lumbar spine in the [place] 1.5 Hina magnet using the standard protocol. FINDINGS: There is slight left convex lumbar curvature. There is no lumbar spine acute fracture, or marrow edema. The vertebral body heights are maintained. There is 3 mm retrolisthesis of L2 on L3 and 2 mm retrolisthesis of L3 on L4. There is marked disc space narrowing and endplate degenerative change at L4-5 with possible partial fusion across the L4-5 endplates. There is normal signal in the distal spinal cord and conus with the conus terminating in normal position at the T12-L1 level. T12-L1: There is mild disc bulging, without focal herniation, canal, or foraminal stenosis. L1-2: There is diffuse disc bulging, with posterior annular tear/fissure with mild bilateral facet disease and ligamentum flavum hypertrophy, with mild central canal stenosis. There is no focal herniation or foraminal stenosis. L2-3: There is disc desiccation, with diffuse disc bulging and posterior annular tear/fissure with bilateral facet disease and ligamentum flavum hypertrophy, with moderate central canal stenosis. There is a superimposed left foraminal and extraforaminal disc protrusion with endplate osteophyte formation with severe left foraminal stenosis and mild right foraminal stenosis. L3-4: There is disc desiccation, with diffuse disc bulging, with posterior annular tear/fissure. There is moderate bilateral facet disease with ligamentum flavum hypertrophy with moderate to severe central canal stenosis. The disc bulging extends into the foraminal and extraforaminal regions with moderate left and moderate to severe right foraminal stenosis. L4-5: There are operative changes of left laminotomy and partial discectomy. There is possible partial fusion across the endplates with posterior endplate osteophyte formation extending into the foraminal and extraforaminal regions without evidence of disc herniation. There is no central canal stenosis. There is bilateral moderate facet disease, with moderate to severe right and moderate left foraminal stenosis. There is no central canal stenosis. L5-S1: There is partially sacralized L5 segment. There is no disc bulging, herniation, or canal stenosis. There is mild bilateral facet disease without foraminal stenosis. IMPRESSION: 1. Multilevel lumbar spondylosis as described, with prior operative changes on the left at L4-5 without evidence of recurrent disc herniation, or canal stenosis at this level. There is moderate to severe right and moderate left foraminal stenosis at L4-5. 2. Canal stenosis from L1-2 through L3-4, most marked at L3-4 due to the diffuse disc bulging and bilateral facet disease. 3. Multilevel foraminal stenosis greatest on the left at L2-3 due to left foraminal and extraforaminal disc protrusion. CECILIAY:aliciar Read by: José Miguel Valenzuela M.D. Reviewed and Electronically Signed by: José Miguel Valenzuela M.D. Note * Event Display: Authorization to Treat
--- OUTSIDE RECORDS SUMMARY | 2024-09-25 06:39 | XMS_ITS ---
Author Organization [facility] Address [address] [address] [address] [place] [address] Care Team Providers Care Branch Rental Manager Name Role Phone Mary Grace SOMMERS, Kevin Unavailable Unavailable Bailey Vo PA-C Unavailable [phone] REASON FOR VISIT meds Encounters Encounter Location Date Provider Diagnosis [facility] [place] [facility] [address] [facility] [address] [place] [address] 09/02/2024 Bailey Vo Plan Of Treatment No Information Progress Notes * Tramaine MARIN LDOB:1970 (53 yo M)Acc No.[id number]:09/02/2024 Progress Notes Patient:?Tramaine MARIN Appointment Provider:?CLAUDIA Valentino :1970???Age:53 Y???Sex:Male Andrew e:09/02/2024 Phone: Address:[address] [place], [place] [phone] Subjective: * Chief Complaints: * ???1. Meds. * Medical History:? Objective: * Vitals:? Assessment: Plan: * Treatment: * Billing Information: * Visit Code:? * Procedure Codes:? * Electronic signature of CLAUDIA Banks PA-C on 09/25/2024 at 06:38 AM MANAGER FOOD BEVERAGE Sign off status: Pending * Appointment Provider:?CLAUDIA Valentino Date:?09/02/2024 Generated for Printing/Faxing/eTransmitting on:?09/25/2024 06:38 AM MANAGER FOOD BEVERAGE
--- OUTSIDE RECORDS SUMMARY | 2024-09-25 06:39 | XMS_ITS ---
Author Organization [facility] Address [address] [place] [address] Care Team Providers Care Inspector Plumbing Name Role Phone Mary Grace SOMMERS, Kevin Unavailable Unavailable Sue Davis Unavailable [phone] Medications Medication SIG (Take, Route, Frequency, Duration) Notes Start Date End Date Status HYDROcodone-Acetaminop hen 7.5-325 MG 1 tablet Orally every 6 hrs for 10 days Fill 08/05/24 08/05/2024 Active Encounters Encounter Location Date Provider Diagnosis [facility] [address] [place] [address] [address] [place] [address] 08/05/2024 Sue Davis Plan Of Treatment Medication Medication Name Sig Start Date Stop Date Notes HYDROcodone-Acetaminophen 7.5-325 MG 1 tablet Orally every 6 hrs for 10 days 08/05/2024 Fill 08/05/24 Progress Notes * Tramaine MARIN LDOB:1970 (53 yo M)Acc No.[id number]:08/05/2024 Patient:?MICHELE Tramaine Guzman :1970???Age:53 Y???Sex:Male Phone: Address:[address] [place] [address], [phone] * Refills? Refill HYDROcodone-Acetaminophen Tablet, 7.5-325 MG, Orally, 40 Tablet, 1 tablet, every 6 hrs, 10 days, Refills=0 * true * Date:? Generated for Junior modi/Inna/eTransmitting on:?09/25/2024 06:38 AM WATCH CASE POLISHER
--- OUTSIDE RECORDS SUMMARY | 2024-09-25 06:39 | XMS_ITS | Patient Health Record ---
Author Organization [facility] Address [address] [place] [address] Care Team Providers Care Voltage Regulator Assembler Name Role Phone Kevin Brody MD Unavailable Unavailable Sue Davis Unavailable [phone] Twan Castillo Unavailable [phone] Bailey Vo PA-C Unavailable Hillary Staples Unavailable [phone] Allergies Allergen (clinical drug ingredient) Drug/Non Drug Allergy documented on EMR Reaction Allergy Type Onset Date Status Sudafed Other Drug Allergy Active Reason For Referral No Information Medications Medication SIG (Take, Route, Frequency, Duration) Notes Start Date End Date Status predniSONE 20 MG Oral for 4 Days Active tiZANidine HCl 2 MG Oral for 30 Days Active Albuterol Sulfate HFA 108 (90 Base) MCG/ACT Inhalation for 25 Days Active HYDROcodone-Acetaminop hen 7.5-325 MG 1 tablet Orally every 6 hrs for 10 days Fill 08/05/24 08/05/2024 Active Problems Problem Type SNOMED Code ICD Code Onset Dates Problem Status W/U Status Risk Notes Problem Cervicalgia (79040155) Cervicalgia (M54.2) Active confirmed Problem Cervical spondylosis (826245910) Cervical spondylosis (M47.812) Active confirmed Problem Sacroiliitis (39971756) Sacroiliitis (M46.1) Active confirmed Problem Cervical radiculopathy (54164045) Cervical radiculopathy (M54.12) Active confirmed Problem Post-laminectomy syndrome (60415252) Post laminectomy syndrome (M96.1) Active confirmed Problem Low back pain (324438356) Low back pain (M54.50) Active confirmed Vital Signs Heart Rate 81 /min 08/05/2024 Height-cm 177.8 cm 08/05/2024 Blood pressure diastolic 89 mm Hg 08/05/2024 Weight-kg 79.38 kg 08/05/2024 Height 70 in 08/05/2024 Blood pressure systolic 153 mm Hg 08/05/2024 Weight 175 lbs 08/05/2024 BMI 25.11 kg/m2 08/05/2024 Encounters Encounter Location Date Provider Diagnosis [facility] [address] [facility] [address] [place] [address] 02/07/2024 Twan Castillo [facility] [address] [place] [address] 02/14/2024 Twan Castillo [facility] [address] [place] [address] [address] [place] [address] 03/13/2024 Twan Castillo [facility] [address] [place] [address] 03/20/2024 Twan Castillo [facility] [id number] [place] [address] [address] [place] [address] 05/28/2024 Hillary Staples Low back pain M54.50 ; Post laminectomy syndrome M96.1 ; Sacroiliitis M46.1 ; Cervicalgia M54.2 and Other nursing home (current) drug therapy Z79.899 [facility] [address] [place] [address] 08/05/2024 Bailey Vo Low back pain M54.50 ; Post laminectomy syndrome M96.1 ; Sacroiliitis M46.1 ; Cervicalgia M54.2 ; Cervical spondylosis M47.812 and Cervical radiculopathy M54.12 [facility] [address] [place] [address] 05/28/2024 Twan Castillo [facility] [address] [place] [address] 06/27/2024 Twan Castillo [facility] [address] [facility] [address] [place] [address] 08/05/2024 Sue Davis Assessments Encounter Date Diagnosis (ICD Code) Assessment Notes Treatment Notes Treatment Clinical Notes Section Notes 05/28/2024 Post laminectomy syndrome (ICD-10 - M96.1) 05/28/2024 Low back pain (ICD-10 - M54.50) Refill for controlled substance sent to supervising physician to be filled Follow-up with Dr. Macias to sooner appt for surgical consult per Dr. Slaughter home stretching and at home exercise program as toleratedFollow- up in one month for med check, sooner if needed 08/05/2024 Low back pain (ICD-10 - M54.50) Prescription for controlled substance sent to supervising physician for renewal 05/28/2024 Sacroiliitis (ICD-10 - M46.1) 08/05/2024 Post laminectomy syndrome (ICD-10 - M96.1) 05/28/2024 Cervicalgia (ICD-10 - M54.2) 08/05/2024 Sacroiliitis (ICD-10 - M46.1) 05/28/2024 Other nursing home (current) drug therapy (ICD-10 - Z79.899) 08/05/2024 Cervicalgia (ICD-10 - M54.2) 08/05/2024 Cervical spondylosis (ICD-10 - M47.812) 08/05/2024 Cervical radiculopathy (ICD-10 - M54.12) 05/28/2024 Other High Blood Pressure: Care Instructions material was published 08/05/2024 Other Body Mass Index : Care Instructions material was published, High Blood Pressure: Care Instructions material was published Plan Of Treatment No Information Insurance Providers Payer Name Payer Address Payer Phone Subscriber Number Group Number Insured Name Patient Relationship to Insured Coverage Start Date Coverage End Date [facility] [address] [place] [address] [id number] Tramaine Marin Self - patient is the insured Medical (General) History Medical History History ICD Code COPD Kidney stones Alcoholism- recovery Depression and anxiety Surgical History Surgery Date(Month/Year) ACDF 2020 lumbar decompression/laminectomy surgery at L4-5 level 2020 Hospitalization History Reason Date(Month/Year) no hospitalization since last visit
--- OUTSIDE RECORDS SUMMARY | 2024-09-25 06:40 | XMS_ITS | Encounter Summary ---
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] Procedures SD ARTHRODESIS COMBINED TQ 1NTRSPC LUMBAR SD ARTHRODESIS CMBN TQ 1NTRSPC EACH ADDITIONAL SD POSTERIOR SEGMENTAL INSTRUMENTATION 3-6 VRT SEG SD INSJ BIOMCHN DEV INTERVERTEBRAL DSC SPC W/ARTHRD SD AUTOGRAFT SPINE SURGERY LOCAL FROM SAME INCISION L3-5 Decompressive Laminectomy, Posterior Lumbar Interbody Fusion using Zavation EZ Span Cage, Mathew Screws, Local Autograph and L4-5 Repeat Discectomy Kevin Brody MD [address] [address] Phone: tel: fax: Referral ID Status Reason Start Date Expiration Date Visits Re quested Visits Authorized [id number] 07/11/2024 1 1 Encounter Details Date Type Department Care Team (Late st Contact Info) Description 08/13/2024 7:30 AM [employer] - 08/13/2024 12:30 PM [employer] Surgery [facility] Operating Room [address] [place] [id number] Kevin Brody MD [address] [facility] [address], [place] [address] L3-5 Decompressive Laminectomy, Posterior Lumbar Interbody Fusion using Zavation EZ Span Cage, Mathew Screws, Local Autograph and L4-5 Repeat Discectomy Surgery Details Date/Time Status Location OR Service Patient Class Case Class Case Type Trauma Case? 08/13/2024 7:30 AM Posted [facility] OPERATING ROOM OR Orthopaedic Spine Outpatient in Bed Elective Panel 1 Procedure [facility] Anes Op Region Wound Class Comments L3-5 Decompressive Laminectomy, Posterior Lumbar Interbody Fusion using Zavation EZ Span Cage, Mathew Screws, Local Autograph and L4-5 Repeat Discectomy N/A General Back Class I - Clean MANAGER LEGAL, [place] Neuromonitoring; New age and Job, Both reps confirmed ([place]) Surgeon Surgeon Role Service Panel Kevin Brody MD Primary Orthopaedic Spin e 1 documented in this encounter Social History Tobacco Use Types Packs/Day Years Used Date Smoking Tobacco: Every Day Cigarettes 0.2 20 Smokeless Tobacco: Never Alcohol Use Standard Drinks/Week Comments Not Currently 0 (1 standard drink = 0.6 oz pur e alcohol) Recovering alcoholic-whiskey AUDIT-C Answer Date Recorded Q1: How often do you have a drink containing alcohol? Never 08/13/2024 Q2: How many drinks containi ng alcohol do you have on a typical day when you are drinking? Patient does not drink Q3: How often do you have si x or more drinks on one occasion? Never 08/13/2024 Personal Safety Answer Date Recorded Have you ever been in or are you currently in a harmful physical or emotional relationship or is someone making you feel afraid or unsafe? 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 Not on file Not on file documented as of this encounter Last Filed Vital Signs Vital Sign Reading Time Taken Comments Blood Pressure 117/66 08/13/2024 12:25 PM [employer] Pulse 94 08/13/2024 12:30 PM [employer] Temperature 36.8 ??C (98.3 ??F) 08/13/2024 1 1:46 AM [employer] Respiratory Rate 14 08/13/2024 12:3 0 PM [employer] Oxygen Saturation 96% 08/13/2024 12: 30 PM [employer] Inhaled Oxygen Concentration - - Weight 82.9 kg (182 lb 12.2 oz) 024 6:00 AM [employer] Height 182.9 cm (6') 08/13/2024 6:00 AM [employer] Body Mass Index 24.79 08/13/2024 6:00 AM [employer] documented in this encounter Discharge Summaries * Margaux Root PA - 08/14/2024 10:11 AM CST Inpatient Discharge Summary BRIEF OVERVIEW Admitting Provider: Kevin Brody MD Discharge Provider: Kevin Brody MD Primary Care Physician at Discharge: Elton De La Fuente MD [phone] Admission Date: 08/13/2024 Discharge Date: 08/14/2024 Admission Location: [facility] Problems/Diagnoses: Principal Problem: Lumbar stenosis with neurogenic claudication Resolved Problems: No resolved hospital problems. DETAILS OF HOSPITAL STAY Presenting Problem/History of Present Illness: Tramaine Marin Jr. is a 53 y.o. male presenting for L3-5 Decompressive Laminectomy, Posterior LumbarInterbody Fusion using Zavation EZ Span Cage, Mathew Screws, Local Autograph and L4-5 Repeat Discectomy scheduled on 08/13/2024 with Kevin Logan MD. Hospital Course: Patient was admitted directly to surgery on 08/13/24 for the diagnosis listed above. Postoperatively he went to the surgical floor under routine monitoring. Postoperative course was significant for pain control on oral medications. Diet was advanced without problems. Removal of indwelling catheter with spontaneous void. Hemovac discontinued. Incision site clean and dry without erythema, edema, discharge. PT/OT evaluation and treatment. Home medication resumed. Postoperative goals were met and patient was appropriate for discharge on 08/14/24. Discharged home with family. Discharge activity, wound care, restrictions and follow-up discussed with patient prior to discharge. Active Issues Requiring Follow-up: None Test Results Pending at Discharge: Pending Labs Order Current Status Surgical pathology Collected (08/13/24 1116) Operative Procedures Performed: Procedure(s): L3-5 Decompressive Laminectomy, Posterior Lumbar Interbody Fusion using Zavation EZ Span Cage, MesaScrews, Local Autograph and L4-5 Repeat Discectomy Discharge Details Physical Exam at Discharge: Discharge Condition: stable Pulse: 79 Resp: 16 BP: 154/81 Temp: 37.1 ??C (98.7 ??F) Weight: 82.9 kg (182 lb 12.2 oz) Pertinent Exam Findings at Discharge: AVSS, He is alert. He has good strength in his lower extremities. His gait is steady. His wound is healing without signs of infection. Discharge Disposition: Discharge to home or self care Code Status at Discharge: Full code Discharge Instructions: [facility] Dr. Kevin Brody MD, FACS [address] [place] [address], [place] [address] Email: [email or web address] DISCHARGE INSTRUCTIONS INCISION * Have someone look at your incision daily. Should you notice: drainage, incisional separation, increased redness at the incision site, or a temperature greater than 101??F, call the office * If your incision is closed with surgical skin glue, do not pick at the glue. It will flake off in2-4 weeks * If you have a steri-strips over your incision, keep them in place until they fall off or, if you are 10 days postop, you may remove them * If you have jackelyn they will be removed at your first postoperative appointment which is typically 10 days after surgery *If you have surgical skin glue on your incision there is no need for a dressing to the neck or lowback incision unless you have drainage. Do not apply any lotions, ointments, makeup, or creams to your incision FOLLOW UP * You have a follow up appointment in your pre-surgery paperwork. If you can't remember your appointment date/time, call our office. A reminder phone call is typically given at least one day prior toyour appointment * If problems arise or you have any questions, please call the office SHOWERING *Shower daily and allow the soap and water to run over the incision. Do not scrub your incision. Pat incision dry *No immersion in bathtubs, swimming pools, hot tubs, lakes until incision is completely healed SMOKING Not only will smoking with greatly compromise the success of your spinal fusion, but puts you at higher risk for pneumonia and other complications . STOP smoking!! MEDICATIONS *DO NOT take more pain medication than prescribed. It can't be refilled early! *If you had a FUSION (both lumbar and cervical) - DO NOT TAKE NSAIDS (Motrin, Advil, Aleve, etc) until Dr. Oseguera given you approval to start these medications * For refills, please plan ahead and phone the office on Monday or Monday * If you are taking narcotic pain medication, be alert for constipation! You will most likely need a laxative or stool softener while taking these medications ACTIVITY * If you are given a back brace, then use it when you are up! It will remind you to use good body mechanics. You do not need to wear the brace when lying down, sleeping, bathing or use the bathroom * You need to walk daily, even if you have pain! You need to walk at least 10 minutes per hour. *No lifting until you are seen at your first post-op appointment. Light activity and walking are encouraged * Driving will be addressed at your first post-op appointment * You may climb stairs as tolerated, using the handrail for safety XRAYS * If you need an xray for you first post-op appointment, you will be given a script for the xray GO IMMEDIATELY TO THE EMERGENCY DEPARTMENT WHEN: SHORTNESS OF BREATH OR ANY BREATHING DIFFICULTIES CALL THE OFFICE WHEN: * Temperature greater than 101F * You have increased pain, swelling, or redness at your incision site * You have increased drainage from your incision *You have difficulty swallowing *You have difficulty with you bowel or bladder that is unusual for you *Any other questions or concerns? Call the office Discharge Medications: Current Medications TAKE these medications HYDROcodone-acetaminophen 7.5-325 mg per tablet Take by mouth every 8 (eight) hours as needed Commonly known as: NORCO TiZANidine 4 mg capsule Take 1 capsule (4 mg total) by mouth 3 (three) times a day as needed for muscle spasms Commonly known as: ZANAFLEX Outpatient Follow-Up: [employer] documented in this encounter Discharge Instructions * Discharge Instructions* Margaux Root PA - 08/14/2024 10:10 AM [employer] [facility] Dr. Kevin Brody MD, FACS [address] [place] [address], [place] [address] Email: [email or web address] DISCHARGE INSTRUCTIONS INCISION * Have someone look at your incision daily. Should you notice: drainage, incisional separation, increased redness at the incision site, or a temperature greater than 101??F, call the office * If your incision is closed with surgical skin glue, do not pick at the glue. It will flake off in2-4 weeks * If you have a steri-strips over your incision, keep them in place until they fall off or, if you are 10 days postop, you may remove them * If you have jackelyn they will be removed at your first postoperative appointment which is typically 10 days after surgery *If you have surgical skin glue on your incision there is no need for a dressing to the neck or lowback incision unless you have drainage. Do not apply any lotions, ointments, makeup, or creams to your incision FOLLOW UP * You have a follow up appointment in your pre-surgery paperwork. If you can't remember your appointment date/time, call our office. A reminder phone call is typically given at least one day prior toyour appointment * If problems arise or you have any questions, please call the office SHOWERING *Shower daily and allow the soap and water to run over the incision. Do not scrub your incision. Pat incision dry *No immersion in bathtubs, swimming pools, hot tubs, lakes until incision is completely healed SMOKING Not only will smoking with greatly compromise the success of your spinal fusion, but puts you at higher risk for pneumonia and other complications . STOP smoking!! MEDICATIONS *DO NOT take more pain medication than prescribed. It can't be refilled early! *If you had a FUSION (both lumbar and cervical) - DO NOT TAKE NSAIDS (Motrin, Advil, Aleve, etc) until Dr. Oseguera given you approval to start these medications * For refills, please plan ahead and phone the office on Monday or Monday * If you are taking narcotic pain medication, be alert for constipation! You will most likely need a laxative or stool softener while taking these medications ACTIVITY * If you are given a back brace, then use it when you are up! It will remind you to use good body mechanics. You do not need to wear the brace when lying down, sleeping, bathing or use the bathroom * You need to walk daily, even if you have pain! You need to walk at least 10 minutes per hour. *No lifting until you are seen at your first post-op appointment. Light activity and walking are encouraged * Driving will be addressed at your first post-op appointment * You may climb stairs as tolerated, using the handrail for safety XRAYS * If you need an xray for you first post-op appointment, you will be given a script for the xray GO IMMEDIATELY TO THE EMERGENCY DEPARTMENT WHEN: SHORTNESS OF BREATH OR ANY BREATHING DIFFICULTIES CALL THE OFFICE WHEN: * Temperature greater than 101F * You have increased pain, swelling, or redness at your incision site * You have increased drainage from your incision *You have difficulty swallowing *You have difficulty with you bowel or bladder that is unusual for you *Any other questions or concerns? Call the office [employer] documented in this encounter Medications at Time of Discharge HYDROcodone-aceta minophen (NORCO) 7.5-325 mg per tablet Take by mouth every 8 (eight) hours as needed 02/25/2022 09/18/2024 TiZANidine (ZANAFLEX) 4 mg capsule Take 1 capsule (4 mg total) by mouth 3 (three) times a day as needed for muscle spasms 09/18/2024 documented as of this encounter Discharge Disposition Disposition Code Departure Means Destination Comment s Discharge to home or self care documented in this encounter Progress Notes * Mariana Barrera, PT - 08/14/2024 10:46 AM CST Physical Therapy 08/14/24 1049 General Chart Reviewed Yes Session Type Evaluation PT Received On 08/14/24 Safe Environment Arm band checked;Patient found sitting in chair;Gait belt utilized for all out of bed mobility Subjective Agreeable to Therapy Subjective Comment Pt states he is ready to go home. Additional Pertinent History 53 yo male s/p L3-5 decompressive laminectomy, posterior lumbar interbody fusion, local autograph and L4-5 repeat discectomy on 08/13/[address] Brody. PMH includes butnot limited to: HTN, COPD, chronic neck/back pain, OA, anterior cervical discectomy and fusion 2021 Family/Caregiver Present Yes (significant other) Physical Therapy-Patient Goal return home Precautions Precautions Bed/Chair Alarm;Fall risk;Spinal/Back Braces/Orthoses LSO Precaution Comments Pt able to verbalize 3/3 spinal precautions. Home Living Type of Home House Home Layout One level Home Access Stairs to enter without rails Entrance Stairs-Rails None Entrance Stairs-Number of Steps 1 Bathroom Shower/Tub Tub/shower unit Bathroom Toilet Standard Home Mobility Equipment-Available None Home Mobility Equipment-Currently Using None Home ADL Equipment-Available None Home ADL Equipment-Currently Using None Prior Function Level of [place] Independent with ADLs;Independent functional transfers;Independent with ambulation Lives With Significant other (works during the day but is taking a few days off. 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 Fall within the last 6 months Yes Fall within the last 6 months comment 3 falls related to uneven ground Activity Tolerance Endurance Endurance does not limit participation in activity Activity Tolerance Comments 140/77, 81 bpm, 98% Pain Assessment Pain Assessment 0-10 Pain Score 9 Patient's Stated Pain Goal No pain Pain Type Surgical pain Pain Location Back (Lumbar) Pain Radiating Towards through left LE to foot - states this was present prior to surgery Clinical Progression Not changed Pain Interventions Repositioned;Ambulation;Rest;RN Notified Response to Interventions Partial pain relief Cognition Orientation Oriented X4 (person, place, time, situation) Compliance/Behavior Easy to engage Sensation Numbness/Tingling Yes (throughout left LE which was present prior to surgery) Bed Mobility 1 Bed Mobility Comments 1 Pt states he plans to sleep in recliner. Reviewed log roll technique and ptverbalizes understanding/using it in the past. Transfers Transfer Yes Transfer 1 Transfer From 1 Sit Transfer Type 1 To and from Transfer to 1 Stand Technique 1 Sit to stand;Stand to sit Transfer Device 1 No device Transfer Level of Assistance 1 Distant supervision Transfers 2 Transfer From 2 Stand Transfer Type 2 To and from Transfer to 2 Car Transfer Device 2 No device Transfer Level of Assistance 2 Distant supervision Ambulation Ambulation Yes Ambulation 1 Distance (ft) 1 500 x2 Surface 1 Level tile Device 1 No device Assistance 1 Standby Assist Gait: Requires verbal cues to 1 Pace activity Quality of Gait 1 reciprocal pattern without path deviation or loss of balance Curbs Curb Height 8 inches Curb: Method forward Curb: Device No device Curb: Level of Assistance Minimum Assist RLE Assessment RLE Assessment WFL Strength RLE R Knee Flexion 5/5 (painful) R Knee Extension 5/5 R Ankle Dorsiflexion 5/5 R Ankle Plantar Flexion 5/5 LLE Assessment LLE Assessment WFL Strength LLE L Knee Flexion 5/5 (painful) L Knee Extension 5/5 L Ankle Dorsiflexion 5/5 L Ankle Plantar Flexion 5/5 Other Comments Other PT Comments Pt tolerated today's session well verbalizing understanding of education about spinal precautions, safe mobility, frequent ambulation and pain control techniques. Safe Environment End of Therapy Session Safe Environment End of Therapy Session Patient left in recliner;RN notified;Call light within reach;Overbed table within reach Assessment Prognosis Good Problem List Orthopedic restrictions;Pain Barriers to Discharge None Plan Plan Plan of care initiated;If this is the last note, consider this the discharge summary Recommendation/Plan PT Recommendation/Plan (S) Home with family;Home with intermittent assist PT Recommendation/Plan Comments safe to transport by car PT Frequency during current admission Daily Treatment/Interventions during current admission Balance Training;Bed mobility;Endurance training;Functional activity;Functional transfer training;Gait training;Stair training;Therapeutic activity;Therapeutic exercise;Transfer training PT Equipment Recommended None PT Evaluation Complete Yes Education: Patient and significant other has been educated on the role of PT, safety , precautions,mobility training, and stairs. Education completed via explanation and demonstration. Patient and significant other verbalized understanding [employer] * Kevin Brody MD - 08/14/2024 9:19 AM CST He reports some mild incisional discomfort. He denies leg pain or weakness. AVSS, He is alert. He has good strength in his lower extremities. His gait is steady. His wound is healing without signs of infection. Postoperative day #1. He is progressing satisfactorily. Physical therapy this morning. Discharged to home when comfortable. He is to follow up with me in two weeks. I prescribed oxycodone 5/325 mg p.o. q.4 hours p.r.n. [employer] * Faviola Boland, OT - 08/14/2024 8:40 AM CST Occupational Therapy Evaluation 08/14/24 0700 General Chart Reviewed Yes Session Type Evaluation OT Received On 08/14/24 Safe Environment Arm band checked;Gait belt utilized for all out of bed mobility Subjective Agreeable to Therapy Additional Pertinent History Pt is a 53 year old male admitted for L3-L4 and L4- L5 decompressive laminectomy and fusion. PMHx includes hypertension, COPD, osteoarthritis. Family/Caregiver Present No Occupational Therapy-Patient Goal To return home at PLOF Precautions Precautions Bed/Chair Alarm;Fall risk;Spinal/Back Braces/Orthoses (S) TLSO (No order in chart; TLSO donned for further ambulation. MD Brody present at end of session and confirms to wear for functional mobility.) Precaution Handout Issued Yes Precaution Comments Minimal reminders to maintain spinal precautions throughout session Home Living Type of Home House Home Layout One level Home Access Stairs to enter without rails Entrance Stairs-Rails None Entrance Stairs-Number of Steps 2 Bathroom Shower/Tub Tub/shower unit Bathroom Toilet Standard Home Mobility Equipment-Available None Home Mobility Equipment-Currently Using None Home ADL Equipment-Available None Home ADL Equipment-Currently Using None Prior Function Level of [place] Independent with ADLs;Independent functional transfers;Independent with ambulation Lives With Significant other (works during the day but is taking a few days off. 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) Fall within the last 6 months Yes Fall within the last 6 months comment 3 falls in past 6 months while working on pulls on unstable ground Grooming Grooming: Where assessed Standing at sink Grooming: Level of assistance Distant Supervision Grooming: Assistance with Wash/dry hands;Wash/dry face;Teeth care (verbal cues for maintaining spinal precautions) LE Dressing LE Dressing: Where assessed Sitting;Edge of bed LE Dressing: Level of assistance Standby Assist LE Dressing: Assistance with Thread RLE into pants;Thread LLE into pants;Thread RLE into underwear;Thread LLE into underwear;Pull up over hips Room Mobility Room Mobility comment Functional mobility with no device + SBA in room and in hallway Toilet Transfers Toilet Transfers Comments Ambulating with no device <> toilet with no use of grab bar + SBA Tub Transfers Tub Transfers Comments Provided demonstration on tub transfer, pt completes with SBA + verbal cues to maintain spinal precautions Pain Assessment Pain Assessment 0-10 Pain Score 10 - Worst possible pain Pain Type Surgical pain Pain Location Back (Lumbar) Clinical Progression Not changed Activity Tolerance Endurance Tolerates 30 min activity with multiple rests Activity Tolerance Comments Pre OT: 100 HR, 99 O2, 152/62 BP Cognition Arousal/Alertness Alert;Appropriate responses to stimuli Attention Span Appears intact Memory Appears intact Current communication Appears Intact Orientation Oriented X4 (person, place, time, situation) Following Commands Follows one step commands without difficulty Safety Judgment Good awareness of safety precautions Awareness of Errors Assistance required to identify errors made Insight Fully aware of deficits Problem Solving Assistance required to identify errors made Compliance/Behavior Easy to engage Perseveration Not present Sensation Light Touch WFL Numbness/Tingling Yes (bilateral hands) Coordination Fine Motor Fair (difficulty opening toothbrush 2/2 poor hand strength) Serial Opposition WFL Bed Mobility 1 Bed Mobility Comments 1 Provided verbal cues for sequencing of log roll. Pt completes with SBA + head of bed elevated + use of bed rail Transfer 1 Trials/Comments 1 Sit <> stand from edge of bed with SBA + WW RUE Assessment RUE Comments Strength not formally tested 2/2 spinal precautions. Hand strength weak. LUE Assessment LUE Comments Strength not formally tested 2/2 spinal precautions. Hand strength weak. Safe Environment End of Therapy Session Safe Environment End of Therapy Session Patient left in recliner;Call light within reach;Overbed table within reach Assessment Prognosis Good Problem List Pain;Decreased balance;Decreased functional mobility;Decreased ADL independence Problem List Comments maintaining spinal precautions Plan Plan Plan of care initiated;If this is the last note, consider this the discharge summary Recommendation/Plan OT Recommendation (S) Home with intermittent assist Patient at high risk for Falls OT Frequency during current admission 3-5x/wk Treatment/Interventions during current admission ADL/IADL retraining;Balance Training;Bed mobility;Compensatory technique education;Strengthening;Therapeutic activity;Therapeutic exercise OT Equipment Recommended (S) Shower chair;Autoclave Operator;Long handled sponge OT Evaluation Complete Yes Multi-Disciplinary Problems (from Occupational Therapy) Active Problems Problem: OT Misc Start Date: 08/14/24 Goal Start Date Expected End Date End Date Pt to adhere to spinal precautions throughout all functional activity and ADLs with modified independence. 08/14/24 08/21/24 -- Goal Start Date Expected End Date End Date Pt will complete showering including transfer and hygiene with modified independence using adaptivetechniques/equipment as needed. 08/14/24 08/21/24 -- Goal Start Date Expected End Date End Date Pt will complete lower body dressing with modified independence using adaptive equipment as needed.08/14/24 08/21/24 -- Education: Patient has been educated on the role of OT, safety, precautions, ADL training, mobilitytraining, and use of adaptive equipment/DME. Education completed via verbal instruction. Patient verbalized understanding [employer] * Sue Armijo, PT - 08/13/2024 3:41 PM CST Physical Therapy 08/13/24 1541 General PT Received On 08/13/24 Subjective Comment Pt with activity orders to initiate transfers and ambulation on POD 1, activity restricted to standing at bedside this date. Follow up for skilled PT evaluation on 08/14. [employer] documented in this encounter H&P Notes * Kevin Brody MD - 08/08/2024 12:00 AM CST DIAGNOSIS ON ADMISSION Lumbar degenerative disk disease, lumbar spinal stenosis with neurogenic claudication at L3-4 and L4-5, status post left L4-5 microdiskectomy on June 11, 2021. HISTORY OF PRESENT ILLNESS The patient is a 53-year-old gentleman who is admitted for same-day surgery L3-4 and L4-5 decompressive laminectomy and fusion. He presents with aching type numbness pain across his lower back and inboth hips, left thigh and dorsum of his foot, right buttock and hamstring area. The pain is exacerbated by standing, walking, bending and lifting. He has had a trial of conservative measures without significant improvement. His workup has included an MRI of the lumbar spine. PAST MEDICAL HISTORY Remarkable for arthritis. SURGICAL HISTORY As stated above. MEDICATIONS Tylenol. Hydrocodone. ALLERGIES SUDAFED. PHYSICAL EXAMINATION He is 6 feet tall and weighs 181 pounds. Heart rate 77, blood pressure 133/76. He is alert. Cranialnerves 2-12 grossly intact. Motor examination reveals 5/5 strength in deltoids, biceps, triceps, cupola man, iliopsoas, hamstrings, dorsi and plantarflexors and extensor hallucis longus. He reports decreased sensation in his fingertips of both hands, left tucker and dorsum of his left foot and right thigh. Reflexes are 1 and symmetric at biceps, triceps, wrist, patella, and Achilles. His gait is antalgic, but otherwise steady. Review of an MRI of the lumbar spine performed on 03/03/2024 revealed multiple- level lumbar degenerative disk disease, moderate central canal stenosis seen at L2-3, severe central canal stenosis seenat L3-4 with associated broad-based disk bulging and severe foraminal stenosis, moderate to severe bilateral foraminal stenosis seen at L4-5 as well as left L4-5 laminectomy defect and epidural fibrosis. ASSESSMENT The patient has a diagnosis of lumbar degenerative disk disease, lumbar spinal stenosis with neurogenic claudication at L3-4, foraminal stenosis and epidural fibrosis at L4-5. Symptoms have progressed despite conservative measures. Treatment options were discussed including continued conservative measures versus surgery. The risks of surgery were discussed and include but not limited to bleeding,infection, injury to the nerves resulting in weakness, numbness, persistent pain, lack of guaranteeof good result, risk of nonunion, hardware failure, risk of general anesthesia and positioning, andrisk of dural spinal fluid leak. He seemed to understand these risks and wished to proceed with surg lazaro. NO CHANGES NOTED 11/19/24. DLK Job ID/Internal Job ID: [id number] [employer] documented in this encounter Nursing Notes * Arin Cortez RN - 08/14/2024 12:58 PM CST Discharge instructions given to patient and his , both verbalized understanding. Patient discharged at 1255 [employer] documented in this encounter Miscellaneous Notes * Plan of Care - Leela Whitmore RN - 08/14/2024 12:58 PM CST DISPO: home with family. 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 Item Serial No. Smeller Lot No. LRB No. Used Action [employer] Stimulan Rapid Cure Kit Paste Stitchdown Toe Former 5cc 12.5cc Bone Void 620-005 - [id number] [employer] Stimulan Rapid Cure Kit Paste Stitchdown Toe Former 5cc 12.5cc Bone Void 620-005 Bi[employer]ites [id number] N/A 1 Implanted [employer] Cage Spinal Lumbar 10 Degree Tlif Expandable 7-11.5mm Titanium 360- [id number] - [id number] [employer] Cage Spinal Lumbar 10 Degree Tlif Expandable 7-11.5mm Titanium [id number] [employer] N/A 2 Implanted JOB SPINE 4.5mm 35mm Polyaxial Spine Screw Bone Deformity [id number] - [id number] JOB SPINE 4.5mm 35mm Polyaxial Spine Screw Bone Deformity 3001- [id number] Job Spine N/A 6 Implanted JOB SPINE 4.5mm 75mm Contour Ulises Spinal Cocr [id number] - [id number] JOB SPINE 4.5mm 75mmContour Ulises Spinal Cocr [id number] Job Spine N/A 2 Implanted JOB SPINE 26mm Semiadjustable Transverse Spine Connector [place] Posterior 3001- [id number] - [id number] JOB SPINE 26mm Semiadjustable Transverse Spine Connector [place] Posterior [id number] Job Spine N/A 1 Implanted JOB SPINE 32mm Semiadjustable Transverse Spine Connector [place] Posterior 3001- [id number] - [id number] JOB SPINE 32mm Semiadjustable Transverse Spine Connector Ulises Posterior [id number] [place] Spine N/A 1 Implanted Blood/Blood Products Transfused: 0 mls Complications: None Condition on Discharge from the operating room was stable Kevin Brody MD Date: 08/13/2024 Time: 11:30 AM No Resident involved on case [employer] * Op Note - Kevin Brody MD - 08/13/2024 12:00 AM CST PREOP DIAGNOSIS Severe lumbar spinal stenosis with neurogenic claudication L3-4 and L4-5, status post left L4-5 microdiskectomy. POSTOP DIAGNOSIS Severe lumbar spinal stenosis with neurogenic claudication L3-4 and L4-5, status post left L4-5 microdiskectomy. PROCEDURES PERFORMED L3-4 and L4-5 decompressive laminectomy, posterior lumbar interbody fusion at L3-4 using EZspand interbody cages, local autograft, posterior lateral fusion at L4-5 using local autograft, cortical bone trajectory screw placement at L3, L4 and L5 using Mathew screws. SURGEON Dr. Kevin Brody. ANESTHESIA General endotracheal anesthesia. INDICATION FOR PROCEDURE Patient is a 53-year-old gentleman who presents with persistent lower back pain and neurogenic claudication. He had a trial of conservative measures without significant improvement. Treatment optionswere discussed with the patient including continued conservative measures versus surgery. Risks of surgery were discussed and include but not limited to bleeding, infection, injury to nerves, resulting weakness, numbness, persistent pain, lack of guarantee of good result, risk of nonunion, hardwarefailure, risk of dural spinal fluid leak. He seemed to understand these risks and wished to proceedwith surgery. PROCEDURE After adequate general endotracheal anesthesia was established, patient was placed in the prone position on the Yuri table. All bony prominences were padded. The lumbar is prepped with DuraPrep. Sterile drapes were applied. Marking pen used to hanh out his prior incision. 0.25% Marcaine with epinephrine was used for local. A 10 blade was used to make an incision in skin down to the lumbodorsalfascia. Lumbodorsal fascia incised with Bovie cautery to expose the spinous process of L3-L4 and L5, facet complexes at L3-4 and L4-5 as well as pars at these levels were identified. Marker was placed in the spine to confirm localization. Self-retaining retractors were placed. The Midas Vishnu used to fashion sites for cortical bone trajectory screws placement at L3, L4 and L5. Each was cannulated and tapped and check with fluoroscopic images. The spinous process of first L3 and then concluding atL4 was then removed with a MindEdge spine cutter. The prior laminectomy defect on the left side was identified and meticulous dissection was carried out to free the laminotomy defect from the underlying dura and epidural fibrosis. Wide decompressive laminectomy was then carried out using the Midas Vishnu drill curettes and Kerrison rongeurs. More than 50% of the facet complexes at L3-4 were removed to allow for adequate neural foraminal decompression. Epidural fibrosis was then removed from the remainder of the laminotomy on the left side at L4-5 to allow for neural foraminal decompression. The right side was also decompressed. The bilateral L4 nerve roots were identified and L5 nerve roots were identified as well. The wound was irrigated with copious amounts of Ancef containing solution. It appeared that the L4-5 disk space had auto fused. The thecal sac retracted from left to right at theL3-4 level, disc anulus incised with 11 blade. Disk material was removed using curettes and pituitary rongeurs. Endplates were decorticated. Thecal sacs retracted from right to left at the L3-4 level. Disk annulus was incised with 11 blade. Disk material was removed using curettes and pituitary rongeurs. Endplates were decorticated. Local autograft placed in disk space and EZspand cages placed onthe right side at L3-4. There appeared to be a tight fit. EZspand cage then placed on the left sideat L3-4 as well, and proper positioning checked with fluoroscopic images. K2M Mathew screws then placed. These were 4.5 x 35 mm screws at L3-L4 and L5. Each screw was tested using evoked EMGs. There was no evidence of pedicle screw breakout or nerve irritation. Screws then connected with cobalt chromium rods and tightened to appropriate tension. Crosslink connector was placed as well. A 5% Betadinesolution was allowed to soak in the wound for 3 minutes which was then irrigated clear. The facet co mplexes at L4-5 were then decorticated and local autograft were placed in the posterior lateral gutters for posterolateral fusion. The pain paste was placed over the dura. 1 g of vancomycin and gentamicin beads were then placed in the wound. Medium Hemovac drain was placed. The wound was closed with 0 Vicryl suture for the fascia, 2-0 Vicryl suture for the dermis and Dermabond for the skin. The patient tolerated procedure well. He was extubated in procedure and transferred to postanesthesia recovery room in stable condition. All sponge, instrument counts were correct x2. ESTIMATED BLOOD LOSS 250 mL. Job ID/Internal Job ID: [id number] [employer] documented in this encounter Plan of Treatment Scheduled Orders Name Type Priority Associated Diagnoses Order Schedule Surgical pathology Pathology and Cytology Timed Pseudoclaudication syndrome Release Upon Ordering for 1 Occurrences starting 08/13/2024 documented as of this encounter Procedures Procedure Name Priority Date/Time Associated Diagnosis Comments CBC WITHOUT DIFFERENTIAL Routine 08/14/2024 7:13 AM [employer] FL FLUOROSCOPY < 1 HOUR IP Routine 08/13/2024 11:08 AM [employer] XR SPINE LUMBAR 2 OR 3 VIEWS IP Routine 08/13/2024 11:08 AM [employer] FUSION LUMBAR - POSTERIOR 2 LEVELS 08/13/2024 7:30 AM [employer] Pseudoclaudication syndrome B CHECK SAMPLE STAT 08/13/2024 6:59 AM [employer] NEURO MR OUTSIDE REFERENCE Routine 03/03/2024 12:00 AM CDT NEURO MR OUTSIDE REFERENCE Routine 01/26/2024 12:00 AM CDT documented in this encounter Results * (ABNORMAL) CBC without differential (08/14/2024 7:13 AM [employer]) WBC 16.5(H) 3.8 - 9.9 K/cumm Hgb 14.5 13.0 - 17.5 g/dL [facility] Hct 43.7 38.9 - 50.3 % [facility] Plt 169 150 - 400 K/cumm [facility] MPV 12.0 9.1 - 12.3 fL [facility] RBC 4.87 4.30 - 5.80 M/cumm [facility] MCV 89.7 81.3 - 96.4 fL [facility] MCH 29.8 27.1 - 33.3 pg [facility] MCHC 33.2 32.3 - 35.7 g/dL [facility] RDW CV 13.3 11.1 - 14.9 % [facility] RDW SD 44.0 35.7 - 48.1 fL [facility] NRBC abs 0.00 0.00 - 0.01 K/cumm [facility] Blood 08/14/2024 7:13 AM [employer] 08/14/2024 7:51 AM [employer] Kevin Brody MD LAB BLOOD ORDERABLES Suzie l Result [facility] [address] [place] [address] * [place] Fluoroscopy < 1 Hour (08/13/2024 11:08 AM [employer]) Narrative [facility] - 08/13/2024 11:09 AM [employer] The images from this study are not interpreted by Radiology. ??Please refer to the physician's procedure / OR operative note. Kevin Brody MD IMG FLUOROSCOPY PROCEDURE S Final Result Performing Organization Address [facility] [place]/[facility]/ZIP Co de Phone Number [facility] * XR Spine Lumbar 2 or 3 Views (08/13/2024 11:08 AM [employer]) Anatomical Region Laterality Modality Spine N/A Computed Radiogr aphy 08/13/2024 11:3 5 AM [employer] Impressions 08/13/2024 11:35 AM [employer] FINDINGS/IMPRESSION: 6 intraoperative fluoroscopic images are submitted for review. Fusion L4-L5 vertebral bodies. Postoperative changes of L3-L5 posterior fusion and decompression with L3-L4 interbody fusion device placement. Hardware is grossly intact. Please refer to the dedicated operative report for complete evaluation of real-time findings. Electronically signed by: Justus Toledo M.D. Narrative 08/13/2024 11:35 AM [employer] EXAM: XR SPINE LUMBAR 2 OR 3 VIEWS INDICATION: L3-5 Decompressive Laminectomy, Posterior Lumbar Interbody Fusion using Zavation EZ Span Cage, Mathew Screws, Local Autograph and L4-5 Repeat Discectomy COMPARISON: MRI 03/03/2024 Procedure Note Justus Toledo MD - 08/13/2024 EXAM: XR SPINE LUMBAR 2 OR 3 VIEWS INDICATION: L3-5 Decompressive Laminectomy, Posterior Lumbar Interbody Fusion using Zavation EZ Span Cage, Mathew Screws, Local Autograph and L4-5 Repeat Discectomy COMPARISON: MRI 03/03/2024 IMPRESSION: FINDINGS/IMPRESSION: 6 intraoperative fluoroscopic images are submitted for review. Fusion L4-L5 vertebral bodies. Postoperative changes of L3-L5 posterior fusion and decompression with L3-L4 interbody fusion device placement. Hardware is grossly intact. Please refer to the dedicated operative report for complete evaluation of real-time findings. Electronically signed by: Justus Toledo M.D. Kevin Brody MD IMG XR PROCEDURES Final R esult * Check Sample (08/13/2024 6:59 AM [employer]) ABO Rh O Positive MBC HCLL OTHER 08/13/2024 6:59 AM [employer] 08/13/2024 7:23 AM [employer] us Ara Robbins DRAFTING TECHNICIAN LAB BLOOD ORDERABLES Fi nal Result Performing Organization Address City/[facility]/ZIP Co de Phone Number [facility] [address] Department [place] [address] [facility] * Neuro MR Outside Reference (03/03/2024 12:00 AM CDT) Narrative RAD_PACS_OUTSIDE_FILM_[facility] - 08/13/2024 7:45 AM [employer] This order has been auto-finalized and does not contain a result. us Provider Transcribed Order IMG MRI PROCEDURES Fi nal Result [facility]PACS_OUTSIDE_FILM_[facility] * Neuro MR Outside Reference (01/26/2024 12:00 AM CDT) Narrative [facility]PACS[facility]OUTSIDE_FILM_[facility] - 08/13/2024 7:42 AM [employer] This order has been auto-finalized and does not contain a result. us Provider Transcribed Order IMG MRI PROCEDURES Fi nal Result RAD_PACS_OUTSIDE_FILM_[facility] documented in this encounter Visit Diagnoses Diagnosis Lumbar stenosis with neurogenic claudication- Primary Pseudoclaudication syndrome Cauda equina syndrome without mention of neurogenic bladder Pseudoclaudication syndrome Cauda equina syndrome without mention of neurogenic bladder documented in this encounter Admitting Diagnoses Diagnosis Lumbar stenosis with neurogenic claudication documented in this encounter Administered Medications Inactive Administered Medications - up to 3 most recent administrations Medication Order MAR Action Action Date Dose Rate Site acetaminophen (TYLENOL) tablet 1,000 mg 1,000 mg, oral, Once, On Mon08/13/24 at 0645, For 1 dose, Pre-Op, Indications: Pre-Emptive AnalgesiaIndications:Pre-Emptive Analgesia Given 08/13/2024 7:10 AM [employer] 1,000 mg acetaminophen (TYLENOL) tablet 1,000 mg 1,000 mg, oral, Every 6 hours scheduled, First dose on Mon08/13/24 at 1530, Indications: PainIndications:Pain Given 08/14/2024 8:43 AM [employer] 1,000 mg Given 08/14/2024 4:29 AM [employer] 1,000 mg Given 08/13/2024 8:48 PM [employer] 1,000 mg baclofen (LIORESAL) tablet 10 mg 10 mg, oral, Every 8 hours scheduled, First dose on Mon08/13/24 at 1530, Indications: Muscle spasmIndications:Muscle spasm Given 08/14/2024 4:29 AM [employer] 10 mg Given 08/13/2024 8:48 PM [employer] 10 mg Given 08/13/2024 4:05 PM [employer] 10 mg BUPivacaine-EPINEPHrine (MARCAINE with EPI) 0.5 %-1:200,000 preservative free injection As needed, Starting on Mon08/13/24 at 0804, Intra-Op Given 08/13/2024 8:04 AM [employer] 10 mL Surgical Site ceFAZolin (ANCEF) 1,000 mg in sodium chloride 0.9% 1,000 mL solution As needed, Starting on Mon08/13/24 at 0824, Intra-Op Given 08/13/2024 8:24 AM [employer] 1,000 mL Surgical Site dexAMETHasone (DECADRON) 4 mg/mL injection Administer over 2 Minutes, As needed, Starting on Mon08/13/24 at 0828, Intra-Op Given 08/13/2024 11:11 AM [employer] 10 mg Surgical Site dimenhyDRINATE (DRAMAMINE) tablet 25 mg 25 mg, oral, Once, On Mon08/13/24 at 0645, For 1 dose, Pre-Op, Indications: Prevention of Nausea and VomitingIndications:Prevention of Nausea and Vomiting Given 08/13/2024 7:10 AM [employer] 25 mg diphenhydrAMINE (BENADRYL) tab/cap 25 mg 25 mg, oral, Nightly PRN, sleep, Starting on Mon08/13/24 at 1644 docusate sodium (COLACE) capsule 100 mg 100 mg, oral, 2 times daily, First dose on Mon08/13/24 at 2100, Hold for diarrhea, Indications: constipationIndications:constipa tion Given 08/14/2024 8:43 AM [employer] 100 mg Given 08/13/2024 8:48 PM [employer] 100 mg fentaNYL (SUBLIMAZE) preservative free injection 50 mcg 50 mcg, intravenous, Once as needed, breakthrough pain, Starting on Mon08/13/24 at 1205, For 1 dose, Phase I, Administer for uncontrolled or increasing pain while in PACU only. Given 08/13/2024 1:54 PM [employer] 50 mcg gabapentin (NEURONTIN) capsule 300 mg 300 mg, oral, Once, On Mon08/13/24 at 0645, For 1 dose, Pre-Op, Indications: Pre-Emptive AnalgesiaIndications:Pre-Emptive Analgesia Given 08/13/2024 7:10 AM [employer] 300 mg gentamicin (GARAMYCIN) injection As needed, Starting on Mon08/13/24 at 0827, Intra-Op Given 08/13/2024 8:27 AM [employer] 3 mL Surgical Site HYDROmorphone (DILAUDID) injection 0.2 mg 0.2 mg, intravenous, Administer over 2 Minutes, Every 10 min PRN, 1st line for pain, Starting on Mon08/13/24 at 1205, For 10 doses, Phase I, Switch to 2nd line analgesic order if pain is uncontrolled or increasing after 1 dose. Notify Anesthesiologist if total PACU dose reaches 2 mg and pain score 5/10 or more., Indications: PainIndications:Pain Given 08/13/2024 12:20 PM [employer] 0.2 mg HYDROmorphone (DILAUDID) injection 0.4 mg 0.4 mg, intravenous, Administer over 2 Minutes, Every 10 min PRN, 2nd line for pain, Starting on Mon08/13/24 at 1205, For 5 doses, Phase I, May administer 10 mintes after 1st dose of 1st line analgesic agent for uncontrolled or increasing pain. Revert to 1st line dose if POSS of 3. Notify Anesthesiologist if total PACU dose reaches 2 mg and pain score 5/10 or more., Indications: PainIndications:Pain Given 08/13/2024 1:23 PM [employer] 0.4 mg Given 08/13/2024 1:10 PM [employer] 0.4 mg Given 08/13/2024 12:32 PM [employer] 0.4 mg lidocaine in dextrose 5% 2 g/250 mL (8 mg/mL) infusion (premix) 1.5 mg/kg/hr ? 77.6 kg [place] weight (14.55 mL/hr), 8 mg/mL, intravenous, Continuous, Starting on Mon08/13/24 at 1230, Until Mon08/14/24 at 1658, Indications: Pain, Call MD for symptoms of toxicity (ringing in ears, metallic taste, somnolence, numb lips) or lidocaine level greater than 5., RoutineIndications:Pa in Restarted 08/13/2024 12:16 PM [employer] 1.5 mg/kg/hr 14.55 mL/hr LORazepam (ATIVAN) 0.5 mg in sodium chloride 0.9% (further dilution required) injection 0.5 mg, intravenous, Every 6 hours PRN, anxiety, Starting on Mon08/13/24 at 1458, Withdraw ordered dose amount then dilute with equal volume of 0.9% sodium chloride. Administer total volume to patient. Do not exceed a rate of 2 mg/minute. Given 08/13/2024 10:21 PM [employer] 0.5 mg microfibrillar collagen (AVITENE) powder As needed, Starting on Mon08/13/24 at 0832, Intra-Op, Indications: Bleeding from WoundIndications:Blee ding from Wound Given 08/13/2024 8:32 AM [employer] 1 g Surgical Site morphine preservative free injection Administer over 4 Minutes, As needed, Starting on Mon08/13/24 at 0830, Intra-Op Given 08/13/2024 8:30 AM [employer] 4 mg Surgical Site nicotine (NICODERM CQ) 14 mg patch 24 hour 1 patch 1 patch, transdermal, Administer over 24 Hours, Daily, First dose on Mon08/13/24 at 1715, Apply a new patch every 24 hours to a clean, dry, hairless site on the upper arm or hip. Rotate site. Medication Applied 08/14/2024 8:44 AM [employer] 1 patch Left Shoulder Medication Applied 08/13/2024 6:09 PM [employer] 1 patch Right Arm oxyCODONE (ROXICODONE) tablet 5 mg 5 mg, oral, Every 4 hours while awake, First dose on Mon08/13/24 at 1530, Indications: PainIndications:Pain Given 08/14/2024 10:11 AM [employer] 5 mg Given 08/14/2024 4:29 AM [employer] 5 mg Given 08/13/2024 8:48 PM [employer] 5 mg oxyCODONE (ROXICODONE) tablet 5 mg 5 mg, oral, As needed, 1st line for pain, Starting on Mon08/13/24 at 1205, For 2 doses, Phase I, 1st ORAL choice for pain, when the patient is able to tolerate PO medications. May repeat in 1 hour if pain is uncontrolled or increasing after 1st dose., Indications: PainIndications:Pain Given 08/13/2024 2:30 PM C[employer]OM LEATH[employer]ODU[employer]ER 5 mg Given 08/13/2024 1:23 PM [employer] 5 mg povidone-iodine (BETADINE PREP) 5 % ophthalmic solution As needed, Starting on Mon08/13/24 at 1104, Intra-Op Given 08/13/2024 11:04 AM [employer] 30 mL Surgical Site sodium chloride 0.9% infusion 30 mL/hr, intravenous, Continuous, Starting on Mon08/13/24 at 0645 New Bag 08/13/2024 9:55 AM [employer] Rate/Dose Verify 08/13/2024 7:26 AM [employer] 30 mL/h r New Bag 08/13/2024 7:11 AM [employer] 30 mL/hr 30 mL/hr thrombin-recombinant 5,000 unit topical solution As needed, Starting on Mon08/13/24 at 1034, Intra-Op Given 08/13/2024 10:34 AM [employer] 8,000 Units Surgical Site vancomycin (VANCOCIN) solution As needed, Starting on Mon08/13/24 at 0825, Intra-Op Given 08/13/2024 11:11 AM [employer] 500 mg Surgical Site vancomycin 1,000 mg/200 mL in dextrose 5% (premix) 1,000 mg 1,000 mg, intravenous, Administer over 60 Minutes, Once, On Mon08/13/24 at 1900, For 1 dose, Administer 12 hours after last pre-operative dose., Indications: Prophylaxis, SurgicalIndications:Prophyla xis, Surgical New Bag 08/13/2024 6:28 PM [employer] 1,000 mg vancomycin 1500 mg/250 mL in sodium chloride 0.9% (premix) 1,500 mg 1,500 mg, intravenous, Administer over 90 Minutes, Once, On Mon08/13/24 at 0645, For 1 dose, Pre-Op, Indications: Prophylaxis, SurgicalIndications:Prophyla xis, Surgical New Bag 08/13/2024 7:10 AM C[employer] 1,500 mg documented in this encounter Discontinued Medications Medication Sig Discontinue Reason Start Date End Da te ibuprofen (ADVIL,MOTRIN) 800 mg tablet Take 1 tablet (800 mg total) by mouth 3 (three) times a day as needed for pain Stop Taking at Discharge 02/25/2022 08/14/2024 documented as of this encounter Active and Recently Administered Medications Times are shown in [employer]. Scheduled Medication Order 08/12/2024 08/13/2024 08/14/2024 acetaminophen (TYLENOL) tablet 1,000 mg (COMPLETED) 1,000 mg, oral, Once, On Mon08/13/24 at 0645, For 1 dose, Pre-Op, Indications: Pre-Emptive Analgesia 0710 (Given - Provider: Sarah Yin RN) acetaminophen (TYLENOL) tablet 1,000 mg 1,000 mg, oral, Every 6 hours scheduled, First dose on Mon08/13/24 at 1530, Indications: Pain 1605 (Given - Provider: Ella Calloway RN)2047 (Given - Provider: Latasha Hernandez RN) 042 (Given - Provider: Latasha Hernandez RN)0843 (Given - Provider: Sera Jaimes, DEXTER) baclofen (LIORESAL) tablet 10 mg 10 mg, oral, Every 8 hours scheduled, First dose on Mon08/13/24 at 1530, Indications: Muscle spasm 1605 (Given - Provider: Ella Calloway RN)2047 (Given - Provider: Latasha Hernandez RN) 0429 (Given - Provider: Latasha Hernandez RN) dimenhyDRINATE (DRAMAMINE) tablet 25 mg (COMPLETED) 25 mg, oral, Once, On Mon08/13/24 at 0645, For 1 dose, Pre-Op, Indications: Prevention of Nausea and Vomiting 0710 (Given - Provider: Sarah Yin RN) docusate sodium (COLACE) capsule 100 mg 100 mg, oral, 2 times daily, First dose on Mon08/13/24 at 2100, Hold for diarrhea, Indications: constipation 2047 (Given - Provider: Latasha Hernandez RN) 0843 (Given - Provider: Sera Jaimes RN) gabapentin (NEURONTIN) capsule 300 mg (COMPLETED) 300 mg, oral, Once, On Mon08/13/24 at 0645, For 1 dose, Pre-Op, Indications: Pre-Emptive Analgesia 0710 (Given - Provider: Sarah Yin RN) nicotine (NICODERM CQ) 14 mg patch 24 hour 1 patch 1 patch, transdermal, Administer over 24 Hours, Daily, First dose on Mon08/13/24 at 1715, Apply a new patch every 24 hours to a clean, dry, hairless site on the upper arm or hip. Rotate site. 1809 (Medication Applied - Provider: Ella Calloway RN) 0843 (Medication Removed - Provider: Sera Jaimes RN)0844 (Medication Applied - Provider: Sera Jaimes RN)1258 (Due: Medication Removed - Provider: Automatic Discharge Provider - Comment: Time automatically adjusted from order being discontinued) oxyCODONE (ROXICODONE) tablet 5 mg 5 mg, oral, Every 4 hours while awake, First dose on Mon08/13/24 at 1530, Indications: Pain 1806 (Not Given - Provider: Ella Calloway RN - Reason: Other)1808 (Given - Provider: Ella Calloway RN)2048 (Given - Provider: Latasha Hernandez RN) 0429 (Given - Provider: Latasha Hernandez RN)1011 (Given - Provider: Sera Jaimes RN) vancomycin 1,000 mg/200 mL in dextrose 5% (premix) 1,000 mg (COMPLETED) 1,000 mg, intravenous, Administer over 60 Minutes, Once, On Mon08/13/24 at 1900, For 1 dose, Administer 12 hours after last pre-operative dose., Indications: Prophylaxis, Surgical 1828 (New Bag - Provider: Ella Calloway RN) vancomycin 1500 mg/250 mL in sodium chloride 0.9% (premix) 1,500 mg (COMPLETED) 1,500 mg, intravenous, Administer over 90 Minutes, Once, On Mon08/13/24 at 0645, For 1 dose, Pre-Op, Indications: Prophylaxis, Surgical 0710 (New Bag - Provider: Sarah Yin RN) Continuous Medication Order 08/12/2024 08/13/2024 08/14/2024 lidocaine in dextrose 5% 2 g/250 mL (8 mg/mL) infusion (premix) 1.5 mg/kg/hr ? 77.6 kg [place] weight (14.55 mL/hr), 8 mg/mL, intravenous, Continuous, Starting on Mon08/13/24 at 1230, Until Mon08/14/24 at 1658, Indications: Pain, Call MD for symptoms of toxicity (ringing in ears, metallic taste, somnolence, numb lips) or lidocaine level greater than 5., Routine 1214 (Canceled Entry - Provider: Carrie White RN)1216 (Restarted - Provider: Carrie White RN) 1658 (Due: Stopped) sodium chloride 0.9% infusion 30 mL/hr, intravenous, Continuous, Starting on Mon08/13/24 at 0645 0711 (New Bag - Provider: Sarah Yin RN)0726 (Rate/Dose Verify - Provider: Naomi Galvan CRNA)0954 (Paused - Provider: Naomi Galvan CRNA - Comment: Switch to gravity)0955 (New Bag - Provider: Naomi Galvan CRNA) 1658 (Due: Stopped) sodium chloride 0.9% infusion 100 mL/hr, intravenous, Continuous, Starting on Mon08/13/24 at 1530, Phase I & Post-op Floor, Dc if po intake >800cc 1530 (Due) PRN Medication Order 08/12/2024 08/13/2024 08/14/2024 BUPivacaine-EPINEPHrine (MARCAINE with EPI) 0.5 %-1:200,000 preservative free injection (CANCELED) As needed, Starting on Mon08/13/24 at 0804, Intra-Op 0804 (Given - Provider: Stepan Brody MD) ceFAZolin (ANCEF) 1,000 mg in sodium chloride 0.9% 1,000 mL solution (CANCELED) As needed, Starting on Mon08/13/24 at 0824, Intra-Op 0824 (Given - Provider: Stepan Brody MD - Comment: PRN on sterile field) dexAMETHasone (DECADRON) 4 mg/mL injection (CANCELED) Administer over 2 Minutes, As needed, Starting on Mon08/13/24 at 0828, Intra-Op 1111 (Given - Provider: Stepan Brody MD - Comment: Mixed with 4 mL morphine and 1g microfibrillar collagen powder to make pain paste) diphenhydrAMINE (BENADRYL) tab/cap 25 mg 25 mg, oral, Nightly PRN, sleep, Starting on Mon08/13/24 at 1644 fentaNYL (SUBLIMAZE) preservative free injection 50 mcg (COMPLETED) 50 mcg, intravenous, Once as needed, breakthrough pain, Starting on Mon08/13/24 at 1205, For 1 dose, Phase I, Administer for uncontrolled or increasing pain while in PACU only. 1354 (Given - Provider: Carrie White RN) gentamicin (GARAMYCIN) injection (CANCELED) As needed, Starting on Mon08/13/24 at 0827, Intra-Op 0827 (Given - Provider: Stepan Brody MD - Comment: Mixed with 500mg vancomycin and 5cc Stimulan beads to make antiobiotic beads) HYDROmorphone (DILAUDID) injection 0.2 mg (CANCELED) 0.2 mg, intravenous, Administer over 2 Minutes, Every 10 min PRN, 1st line for pain, Starting on Mon08/13/24 at 1205, For 10 doses, Phase I, Switch to 2nd line analgesic order if pain is uncontrolled or increasing after 1 dose. Notify Anesthesiologist if total PACU dose reaches 2 mg and pain score 5/10 or more., Indications: Pain 1220 (Given - Provider: Carrie White RN) HYDROmorphone (DILAUDID) injection 0.4 mg (CANCELED) 0.4 mg, intravenous, Administer over 2 Minutes, Every 10 min PRN, 2nd line for pain, Starting on Mon08/13/24 at 1205, For 5 doses, Phase I, May administer 10 mintes after 1st dose of 1st line analgesic agent for uncontrolled or increasing pain. Revert to 1st line dose if POSS of 3. Notify Anesthesiologist if total PACU dose reaches 2 mg and pain score 5/10 or more., Indications: Pain 1232 (Given - Provider: Carrie White RN)1310 (Given - Provider: Carrie White RN)1323 (Given - Provider: Carrie White RN) LORazepam (ATIVAN) 0.5 mg in sodium chloride 0.9% (further dilution required) injection 0.5 mg, intravenous, Every 6 hours PRN, anxiety, Starting on Mon08/13/24 at 1458, Withdraw ordered dose amount then dilute with equal volume of 0.9% sodium chloride. Administer total volume to patient. Do not exceed a rate of 2 mg/minute. 2221 (Given - Provider: Chanelle Hernandez RN) microfibrillar collagen (AVITENE) powder (CANCELED) As needed, Starting on Mon08/13/24 at 0832, Intra-Op, Indications: Bleeding from Wound 0832 (Given - Provider: Stepan Brody MD - Comment: Mixed with 4mg of morphine and 10mg of decadron to make pain paste) morphine preservative free injection (CANCELED) Administer over 4 Minutes, As needed, Starting on Mon08/13/24 at 0830, Intra-Op 0830 (Given - Provider: Stepan rBody MD - Comment: Mixed with 10mg decadron and 1g of microfibrillar collagen powder to make pain paste) oxyCODONE (ROXICODONE) tablet 5 mg (COMPLETED) 5 mg, oral, As needed, 1st line for pain, Starting on Mon08/13/24 at 1205, For 2 doses, Phase I, 1st ORAL choice for pain, when the patient is able to tolerate PO medications. May repeat in 1 hour if pain is uncontrolled or increasing after 1st dose., Indications: Pain 1323 (Given - Provider: Carrie White, RN)1430 (Given - Provider: Carrie White RN) povidone-iodine (BETADINE PREP) 5 % ophthalmic solution (CANCELED) As needed, Starting on Mon08/13/24 at 1104, Intra-Op 1104 (Given - Provider: Stepan Brody MD - Comment: Irrigation) promethazine (PHENERGAN) tablet 25 mg 25 mg, oral, Every 6 hours PRN, nausea, vomiting, Starting on Mon08/13/24 at 1458, Indications: Nausea and Vomiting thrombin-recombinant 5,000 unit topical solution (CANCELED) As needed, Starting on Mon08/13/24 at 1034, Intra-Op 1034 (Given - Provider: Stepan Brody MD - Comment: Used to make 10units of floseal) vancomycin (VANCOCIN) solution (CANCELED) As needed, Starting on Mon08/13/24 at 0825, Intra-Op 1111 (Given - Provider: Stepan Brody MD - Comment: Mixed with 3 mL of gentamicin and 5cc of Stimulan powder to make antibiotic beads) documented in this encounter Orders Medications Ordered That Jose Antonio ht Not Have Been Administered Count Last Ordered Date First Ordered Date albuterol 2.5 mg /3 mL (0.08 3 %) nebulizer solution 2.5 mg 1 08/13/2024 Carrier Fluids for Secondary Infusion - 0.9% Sodium Chloride 1 08/13/2024 dextrose (D10W) 10% bolus 250 mL 2 08/13/20 dextrose (GLUTOSE) 40 % gel 15 g 1 08/13/20 24 diphenhydrAMINE (BENADRYL) 5 0 mg/mL injection 12.5 mg 1 08/13/2024 diphenhydrAMINE (BENADRYL) tab/cap 25 mg 1 08/13/2024 fentaNYL (SUBLIMAZE) preserv ative free injection 25 mcg 1 08/13/2024 glucagon injection 1 mg 1 08/13/2024 haloperidol (HALDOL) injection 1 mg 1 08/13 insulin lispro (HumaLOG, ADM ELOG) 100 unit/mL injection 0-5 Units 1 08/13/2024 labetaloL (NORMODYNE,TRANDAT E) injection 5 mg 1 08/13/2024 Lactated Ringer's (LR) infusion 1 lidocaine (PF) (XYLOCAINE) 1 0 mg/mL (1 %) preservative free injection 2-10 mg 1 08/13/2024 meperidine (DEMEROL) preserv ative free injection 12.5 mg 1 08/13/2024 naloxone (NARCAN) 0.4 mg/mL injection 0.04-0.4 mg 1 08/13/2024 ondansetron (ZOFRAN) injection 4 mg 1 08/13 promethazine (PHENERGAN) tablet 25 mg 1 racepinephrine (ASTHMANEFRIN ) 2.25 % nebulizer solution 0.5 mL 1 08/13/2024 sodium chloride 0.9% flush 0.5-20 mL 3 07/26 sodium chloride 0.9% infusion 1 08/13/2024 Admission Count Last Ordered Date First Orde red Date INITIATE OUTPATIENT IN A BED 1 08/13/2024 Discharge Count Last Ordered Date First Orde red Date DISCHARGE PATIENT 1 08/14/2024 CORE MEASURES Count Last Ordered Date First Ord ered Date REASON FOR NO VTE PROPHYLAXI S - HOSPITAL ADMISSION - MEDICATIONS 1 08/13/2024 documented in this encounter Care Teams Certified Professional Coder Relationship Specialty Start Date End Date Elton De La Fuente MD PCP - General Family Medicine 06/02/21 documented as of this encounter
--- OUTSIDE RECORDS SUMMARY | 2024-09-25 06:40 | XMS_ITS | Encounter Summary ---
Author Organization [facility] Healthcare Address [address] [place] [id number] Care Team Providers Care Motorman/Woman Name Role Phone Elton De La Fuente MD Primary Care Provider [phone] Reason for Visit * Reason Comments New Patient Pre-op Exam Encounter Details Date Type Department Care Team (Latest Contact Info) Description 07/30/2024 10:15 AM ART DEALER Office Visit [facility] Cardiology [address] [place] [phone] Hunter Smith MD [address] [place], [place] [id number] Preop cardiovascular exam (Primary Dx); Tobacco abuse; Lipid screening Social History Tobacco Use Types Packs/Day Years Used Date Smoking Tobacco: Every Day Cigarettes 0.2 20 Smokeless Tobacco: Never Tobacco Cessation:Ready to Q uit: Not Asked; Counseling Given: Not Answered Alcohol Use Standard Drinks/Week Comments Not Currently 0 (1 standard drink = 0.6 oz pur e alcohol) Recovering alcoholic-whiskey AUDIT-C Answer Date Recorded Q1: How often do you have a drink containing alcohol? Never 07/23/2024 Q2: How many drinks containi ng alcohol do you have on a typical day when you are drinking? 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 Not on file Not on file documented as of this encounter Last Filed Vital Signs Vital Sign Reading Time Taken Comments Blood Pressure 122/70 07/30/2024 10:20 AM ART DEALER Pulse 82 07/30/2024 10:20 AM ART DEALER Temperature - - Respiratory Rate 14 07/30/2024 10:20 AM ART DEALER Oxygen Saturation 95% 07/30/2024 10:20 AM ART DEALER Inhaled Oxygen Concentration - - Weight 82.6 kg (182 lb) 07/30/2024 10:20 AM ART DEALER Height 182.9 cm (6') 07/30/2024 10:20 AM ART DEALER Body Mass Index 24.68 07/30/2024 10:20 AM ART DEALER documented in this encounter Progress Notes * Hunter Smith MD - 07/30/2024 10:15 AM CST [facility] 07/30/2024 CHIEF COMPLAINT Chief Complaint Patient presents with New Patient Pre-op Exam HPI Tramaine Marin . is a 53 y.o. male with DJD, emphysema (based on patient's heavy smoking status and chest x-ray findings), tobacco abuse, history of cocaine abuse. 06/02/2021 initial evaluation-patient has been referred for preoperative cardiovascular evaluation.He denies any prior cardiovascular history including clinical [place], angina, heart failure or any arrhythmias. Patient gives history of DJD, and severe low back pain with numbness and tingling in the left lower extremity. He is scheduled to undergo back surgery. He states that his pain is lifestyle limiting. From cardiac standpoint, he denies angina. He has dyspnea on severe exertion. Denies palpitation, dizziness or syncope. No PND, orthopnea or lower extremity swelling. Patient currently smokes 1 pack per day. He states that he used to snort cocaine few years ago. Denies excessive alcohol or any other illicit drug use 07/30/2024-patient is here for the follow-up visit. He is anticipated to undergo repeat back surgery and is here for preoperative cardiovascular evaluation. He denies any symptoms of chest pain. He has chronic dyspnea on exertion, able to walk about 3-4 blocks before he gets short of breath. Patient states that he had what sounded like PFTs done at outside facility, results not available. He evelyne nues to smoke, although he says that he has cut down on the number cigarettes and is planning to quit completely. MEDICAL HISTORY he has a past medical history of Cervical spondylosis, Degenerative disc disease, lumbar, Hypertension, Kidney stone, and Lumbar spondylosis. he has a past surgical history that includes Eye surgery (Bilateral); Anterior cervical discectomy w/ fusion (2021); and Microdiscectomy lumbar (2018). he Allergies Allergen Reactions Sudafed [Pseudoephedrine] Other (See comments) ya Current Outpatient Medications Medication Sig Dispense Refill HYDROcodone-acetaminophen (NORCO) 7.5-325 mg per tablet Take by mouth every 8 (eight) hours as needed ibuprofen (ADVIL,MOTRIN) 800 mg tablet Take 1 tablet (800 mg total) by mouth 3 (three) times a day as needed for pain TiZANidine (ZANAFLEX) 4 mg capsule Take 1 capsule (4 mg total) by mouth 3 (three) times a day as needed for muscle spasms No current facility-administered medications for this visit. he family history includes Arthritis in his mother; Cancer in his father; Diabetes in his father; Hyperlipidemia in his father; Hypertension in his father and mother; Lung disease in his father. he reports that he has been smoking cigarettes. He has a 20.00 pack-year smoking history. He has never used smokeless tobacco. He reports previous alcohol use. He reports previous drug use. Drug: Cocaine. Smokes 1 pack per day. History of cocaine abuse. 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 Lives with his girlfriend REVIEW OF SYSTEMS General ROS: negative for - Fever, chills, fatigue Psychological ROS: negative for - anxiety, depression Ophthalmic ROS: negative for - loss of vision ENT ROS: negative for - sore throat, epistaxis, headaches, nasal congestion Allergy and Immunology ROS: negative for - hives, postnasal drip Hematological and Lymphatic ROS: negative for - overt bleeding problems, bruising Respiratory ROS: negative for - cough, hemoptysis, wheezing Cardiovascular ROS: negative for - chest pain, leg swelling, palpitations, syncope, orthopnea/PND; positive for dyspnea on exertion Gastrointestinal ROS: negative for - abdominal pain Endocrine ROS: negative for - hot flashes, polydipsia/polyuria Musculoskeletal ROS: Low back pain Neurological ROS: Positive for - gait disturbance Dermatological ROS: negative for pruritus, rash LABS AND OTHER DIAGNOSTIC TESTS REVIEWED Lab Results Component Value Date WBC 8.6 07/23/2024 HGB 15.7 07/23/2024 HCT 47.5 07/23/2024 MCV 90.1 07/23/2024 No lab exists for component: LABALBU Lab Results Component Value Date WBC 8.6 07/23/2024 HGB 15.7 07/23/2024 HCT 47.5 07/23/2024 MCV 90.1 07/23/2024 Lab Results Component Value Date CHOL 203 (H) 03/30/2020 Lab Results Component Value Date HDL 46 03/30/2020 No results found for: LDL ] Lab Results Component Value Date TRIG 151 (H) 03/30/2020 Chest [id number]-[id number] lungs consistent with emphysema. 04/02/2021 [facility] EKG-sinus rhythm with occasional PACs; leftward axis, incomplete right bundle branch block. 04/02/2021 [facility] EKG-sinus rhythm, incomplete RBBB. 06/02/2021 Lipids-total cholesterol 210, HDL 35, triglycerides 261, LDL 123. 06/02/2021 EKG-sinus rhythm, leftward axis 07/30/2024 Lipids-total cholesterol 186, HDL 28, triglycerides 215, LDL 115, glucose 95. 07/30/2024 PHYSICAL EXAM Vitals BP 122/70 (BP Location: Left arm, Patient Position: Sitting) Pulse 82 Resp 14 Ht 182.9 cm (6') Wt 82.6 kg (182 lb) SpO2 95% BMI 24.68 kg/m?? General appearance - alert, no distress, oriented to time, place, person Mental status - affect appropriate to mood Eyes - extraocular eye movements intact, no pallor Ears - external ears appear normal, hearing grossly normal Nose - normal and patent, no discharge Mouth - mucous membranes moist, tongue normal Neck - supple, no JVD Chest - coarse breath sounds Heart - normal rate, regular rhythm, normal S1, S2, no audible murmurs Abdomen - soft, nontender, nondistended, bowel sounds present Neurological - alert, oriented, normal speech, no gross motor deficits Musculoskeletal - no major deformity, no amputations Extremities - no pedal edema, no clubbing or cyanosis Skin - no rashes (on the exposed areas), no cyanosis ASSESSMENT Diagnoses and all orders for this visit: Preop cardiovascular exam (Primary) - ECG 12 lead Tobacco abuse Lipid screening - POCT lipid panel PLAN/RECOMMENDATIONS 53 y.o. with DJD, emphysema (based on patient's heavy smoking status and chest x-ray findings), tobacco abuse, history of cocaine abuse. Patient has DJD and scheduled to undergo repeat low back surgery. He does not have any known prior cardiac history including clinical [place], angina or heart failure. Current EKG shows sinus rhythm without significant ST-T abnormality. Based on patient's current cardiovascular status, he would be at anacceptable risk for surgery for any major adverse cardiovascular events. No additional cardiac testing is indicated at this time. Patient is a heavy smoker. He has dyspnea on severe exertion and his previous chest x-ray suggestive of emphysema. Patient was advised to quit tobacco. He was advised to follow up with his primary care physician. Recommend PFTs to check for severity of COPD/emphysema, if not already performed. Diet and lifestyle modification for dyslipidemia. Counseling was done for heart healthy diet, aerobic exercise as tolerated. Follow up in about 12-16 months or sooner if necessary. Hunter Smith MD 07/30/24 Voice recognition software was used to complete this document, therefore, claim review medical director variances may occur. DEALER documented in this encounter Plan of Treatment Not on file documented as of this encounter Procedures Procedure Name Priority Date/Time Associated Diagnosis Comments POCT LIPID PANEL Routine 07/30/2024 10:3 3 AM ART DEALER Lipid screening ECG 12-LEAD Routine 07/30/2024 10:22 AM ART DEALER Preop cardiovascular exam documented in this encounter Results * POCT lipid panel (07/30/2024 10:33 AM ART DEALER) Cholesterol, POC 186 mg/dL HDL, POC 28 mg/dL Triglycerides, POC 215 mg/dL LDL Cholesterol POC 115 mg/dL Chol/HDL Ratio, POC 6.7 Non-HDL Cholesterol, POC 158 mg/dL Cholesterol Total, POC 186 mg/dL Capillary blood 07/30/2024 1 0:33 AM ART DEALER us Hunter Smith MD POINT OF CARE TEST ORDERABLES Fi nal Result * ECG 12 lead (07/30/2024 10:22 AM ART DEALER) us Hunter Smith MD ECG ORDERABLES Edited Result - Final documented in this encounter Visit Diagnoses Diagnosis Preop cardiovascular exam- Primary Pre-operative cardiovascular examination Tobacco abuse Tobacco use disorder Lipid screening Screening for lipoid disorders documented in this encounter Care Teams Motorman/Woman Relationship Specialty Start Date End Date Elton De La Fuente MD PCP - General Family Medicine 06/02/21 documented as of this encounter
--- OUTSIDE RECORDS SUMMARY | 2024-09-25 06:40 | XMS_ITS | Encounter Summary ---
Author Organization 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] Procedures CO ARTHRODESIS COMBINED TQ 1NTRSPC LUMBAR CO ARTHRODESIS CMBN TQ 1NTRSPC EACH ADDITIONAL CO POSTERIOR SEGMENTAL INSTRUMENTATION 3-6 VRT SEG CO INSJ BIOMCHN DEV INTERVERTEBRAL DSC SPC W/ARTHRD CO AUTOGRAFT SPINE SURGERY LOCAL FROM SAME INCISION L3-5 Decompressive Laminectomy, Posterior Lumbar Interbody Fusion using Zavation EZ Span Cage, Mathew Screws, Local Autograph and L4-5 Repeat Discectomy Kevin Brody MD [address] [place] [place] [address] Phone: tel: fax: Referral ID Status Reason Start Date Expiration Date Visits Re quested Visits Authorized [id number] 07/11/2024 1 1 Encounter Details Date Type Department Care Team (Latest Contact Info) Description 08/13/2024 5:41 AM OPHTHALMIC MEDICAL TECHNOLOGIST - 08/14/2024 12:58 PM OPHTHALMIC MEDICAL TECHNOLOGIST Hospital Encounter [facility] [address] [place] [id number] Kevin Brody MD [address] [facility] [address] [place] [address] Pseudoclaudication syndrome Discharge Disposition: Discharge to home or self care Social History Tobacco Use Types Packs/Day Years [...] on file Legal Sex Male 6:34 PM OPHTHALMIC MEDICAL TECHNOLOGIST Gender Identity Not on file Sexual Orientation Not on file 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 file Not on file Not on file documented as of this encounter Last Filed Vital Signs Vital Sign Reading Time Taken Comments Blood Pressure 144/78 08/14/2024 11:44 AM OPHTHALMIC MEDICAL TECHNOLOGIST Pulse 85 08/14/2024 11:44 AM OPHTHALMIC MEDICAL TECHNOLOGIST Temperature 36.5 ??C (97.7 ??F) 08/14/2024 1 1:44 AM OPHTHALMIC MEDICAL TECHNOLOGIST Respiratory Rate 16 08/14/2024 11:4 4 AM OPHTHALMIC MEDICAL TECHNOLOGIST Oxygen Saturation 99% 08/14/2024 11: 44 AM OPHTHALMIC MEDICAL TECHNOLOGIST Inhaled Oxygen Concentration - - Weight 82.9 kg (182 lb 12.2 oz) 08/13/2024 6:00 AM OPHTHALMIC MEDICAL TECHNOLOGIST Height 182.9 cm (6') 08/13/2024 6:00 AM OPHTHALMIC MEDICAL TECHNOLOGIST Body Mass Index 24.79 08/13/2024 6:00 AM OPHTHALMIC MEDICAL TECHNOLOGIST documented in this encounter Discharge Summaries * Margaux Root PA - 08/14/2024 10:11 AM CST Inpatient Discharge Summary BRIEF OVERVIEW Admitting Provider: Kevin Brody MD Discharge Provider: Kevin Brody MD Primary Care Physician at Discharge: Elton De La Fuente MD [phone] Admission Date: 08/13/2024 Discharge Date: 08/14/2024 Admission Location: [facility] Hospital Problems/Diagnoses: Principal Problem: Lumbar stenosis with [...] Status at Discharge: Full code Discharge Instructions: [facility] Dr. Kevin Brody MD, FACS [address] [place] [address] Email: [email or web address] AFTER [facility] CARE DISCHARGE INSTRUCTIONS INCISION * [...] spasms Commonly known as: ZANAFLEX Outpatient Follow-Up: HALMIC MEDICAL TECHNOLOGIST documented in this encounter Discharge Instructions * Discharge Instructions* Margaux Root PA - 08/14/2024 10:10 AM OPHTHALMIC MEDICAL TECHNOLOGIST [facility] Dr. Kevin Brody MD, [place] [address] Email: [email or web address] AFTER SURGERY CARE DISCHARGE INSTRUCTIONS INCISION * [...] other questions or concerns? Call the office HALMIC MEDICAL TECHNOLOGIST documented in this encounter Medications at Time [...] Equipment-Currently Using None Prior Function Level of [place] Independent with ADLs;Independent functional transfers;Independent with ambulation Lives With Significant other (works during the day but is taking a few days off. 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 Patient and significant other verbalized understanding HALMIC MEDICAL TECHNOLOGIST * Kevin Brody MD - 08/14/2024 9:19 [...] oxycodone 5/325 mg p.o. q.4 hours p.r.n. HALMIC MEDICAL TECHNOLOGIST * Faviola Boland, OT - 08/14/2024 8:40 AM CST Occupational Therapy Evaluation 08/14/24 0775 General Chart Reviewed Yes Session Type Evaluation [...] in chart; TLSO donned for further ambulation. Mary Grace present at end of session and confirms [...] Equipment-Currently Using None Prior Function Level of [place] Independent with ADLs;Independent functional transfers;Independent with ambulation [...] activity;Therapeutic exercise OT Equipment Recommended (S) Shower chair;Market Risk Analyst;Long handled sponge OT Evaluation Complete Yes Multi-Disciplinary [...] completed via verbal instruction. Patient verbalized understanding HALMIC MEDICAL TECHNOLOGIST * Sue Armijo, PT - 08/13/2024 3:41 PM CST Physical Therapy 08/13/24 1541 General PT Received On 08/13/24 Subjective Comment Pt with activity orders to initiate transfers and ambulation on POD 1, activity restricted to standing at bedside this date. Follow up for skilled PT evaluation on 08/14. HALMIC MEDICAL TECHNOLOGIST HALMIC MEDICAL TECHNOLOGIST documented in this encounter H&P Notes * [...] reveals 5/5 strength in deltoids, biceps, triceps, slab miller operator, iliopsoas, hamstrings, dorsi and plantarflexors and extensor [...] proceed with surg lazaro. NO CHANGES NOTED 08/13/24. DLK Job ID/Internal Job ID: [id number] HALMIC MEDICAL TECHNOLOGIST documented in this encounter Nursing Notes * Arin Cortez RN - 08/14/2024 12:58 PM CST Discharge instructions given to patient and his , both verbalized understanding. Patient discharged at 1255 HALMIC MEDICAL TECHNOLOGIST documented in this encounter Miscellaneous Notes * Plan of Care - Leela Whitmore RN - 08/14/2024 12:58 PM CST DISPO: home with family. HALMIC MEDICAL TECHNOLOGIST * Brief Op Note - Kevin Brody MD - 08/13/2024 8:04 AM CST Operative Progress Note Surgical Team: Surgeons and Role: * Kevin Brody MD - Primary Anesthesiologist: Jason Christianson MD FOOD SERVICE SALES REPRESENTATIVES: Nadege Vargas CRNA; Naomi Galvan CRNA Sales Service Coordinator: El Diego RN Time Clock Inspector: Hui Salas RT; Maisha Liao RT Sales Service Coordinator Relief: Dajuan Dutton RN Scrub Relief: Gisselle Lazaro RN Scrub: Angie Saleh RN MANAGER OF BROADCAST CONTENT: Fely Cross CRNFA DATE OF SURGERY : [...] Implant Name Type Inv. Item Serial No. Hrbp Lot No. [id number] No. Used Action [employer] Stimulan Rapid Cure Kit Paste Director Of Convention Services 5cc 12.5cc Bone Void 620-005 - [id number] [employer] Stimulan Rapid Cure Kit Paste Director Of Convention Services 5cc 12.5cc Bone Void 620-005 Biocomposites [id number] N/A 1 Implanted [employer] Cage Spinal Lumbar 10 Degree Tlif Expandable 7-11.5mm Titanium 360- [id number] - [id number] [employer] Cage Spinal Lumbar 10 Degree Tlif Expandable 7-11.5mm Titanium [id number] [employer] N/A 2 Implanted JOB SPINE 4.5mm 35mm Polyaxial Spine Screw Bone Deformity [id number] - [id number] JOB SPINE 4.5mm 35mm Polyaxial Spine Screw Bone Deformity 3001- [id number] Job Spine N/A 6 Implanted JOB SPINE 4.5mm 75mm Contour [place] Spinal Cocr [id number] - [id number] JOB SPINE 4.5mm 75mm Contour [place] Spinal Cocr [id number] [place] Spine N/A 2 Implanted JOB SPINE 26mm Semiadjustable Transverse Spine Connector [place] Posterior 3001- [id number] - [id number] JOB SPINE 26mm Semiadjustable Transverse Spine Connector [place] Posterior [id number] [place] Spine N/A 1 Implanted JOB SPINE 32mm Semiadjustable Transverse Spine Connector [place] Posterior 3001- [id number] - [id number] JOB SPINE 32mm Semiadjustable Transverse Spine Connector [place] Posterior [id number] Job Spine N/A 1 Implanted Blood/Blood Products Transfused: 0 mls Complications: None Condition on Discharge from the operating room was stable Kevin Brody MD Date: 08/13/2024 Time: 11:30 AM No Resident involved on case HALMIC MEDICAL TECHNOLOGIST * Op Note - Kevin Brody MD [...] concluding atL4 was then removed with a [employer] spine cutter. The prior laminectomy defect on [...] LOSS 250 mL. Job ID/Internal Job ID: [id number] HALMIC MEDICAL TECHNOLOGIST documented in this encounter Plan of Treatment Scheduled Orders Name Type Priority Associated Diagnoses Order Schedule Surgical pathology Pathology and Cytology Timed Pseudoclaudication syndrome Release Upon Ordering for 1 Occurrences starting 08/13/2024 documented as of this encounter Procedures Procedure Name Priority Date/Time Associated Diagnosis Comments CBC WITHOUT DIFFERENTIAL Routine 08/14/2024 7:13 AM OPHTHALMIC MEDICAL TECHNOLOGIST FL FLUOROSCOPY < 1 HOUR IP Routine 08/13/2024 11:08 AM OPHTHALMIC MEDICAL TECHNOLOGIST XR SPINE LUMBAR 2 OR 3 VIEWS IP Routine 08/13/2024 11:08 AM OPHTHALMIC MEDICAL TECHNOLOGIST FUSION LUMBAR - POSTERIOR 2 LEVELS 08/13/2024 7:30 AM OPHTHALMIC MEDICAL TECHNOLOGIST Pseudoclaudication syndrome B CHECK SAMPLE STAT 08/13/2024 6:59 AM OPHTHALMIC MEDICAL TECHNOLOGIST NEURO MR OUTSIDE REFERENCE Routine 03/03/2024 12:00 AM CDT NEURO MR OUTSIDE REFERENCE Routine 01/26/2024 12:00 AM CDT documented in this encounter Results * (ABNORMAL) CBC without differential (08/14/2024 7:13 AM OPHTHALMIC MEDICAL TECHNOLOGIST) WBC 16.5(H) 3.8 - 9.9 K/cumm Hgb 14.5 13.0 - 17.5 g/dL [facility] Hct 43.7 38.9 - 50.3 % [facility] Plt 169 150 - 400 K/cumm [facility] MPV 12.0 9.1 - 12.3 fL [facility] RBC 4.87 4.30 - 5.80 M/cumm [facility] MCV 89.7 81.3 - 96.4 fL [facility] MCH 29.8 27.1 - 33.3 pg [facility] MCHC 33.2 32.3 - 35.7 g/dL [facility] RDW CV 13.3 11.1 - 14.9 % [facility] RDW SD 44.0 35.7 - 48.1 fL [facility] NRBC abs 0.00 0.00 - 0.01 K/cumm [facility] Blood 08/14/2024 7:13 AM OPHTHALMIC MEDICAL TECHNOLOGIST 08/14/2024 7:51 AM OPHTHALMIC MEDICAL TECHNOLOGIST us Kevin Brody MD LAB BLOOD ORDERABLES Suzie l Result [facility] [address] Department [place] [address] * FL Fluoroscopy < 1 Hour (08/13/2024 11:08 AM OPHTHALMIC MEDICAL TECHNOLOGIST) Narrative [facility] - 08/13/2024 11:09 AM OPHTHALMIC MEDICAL TECHNOLOGIST The images from this study are not interpreted by Radiology. ??Please refer to the physician's procedure / OR operative note. us Kevin Brody MD IMG FLUOROSCOPY PROCEDURE S Final Result [facility] * XR Spine Lumbar 2 or 3 Views (08/13/2024 11:08 AM OPHTHALMIC MEDICAL TECHNOLOGIST) Anatomical Region Laterality Modality Spine N/A Computed Radiogr aphy 08/13/2024 11:3 5 AM OPHTHALMIC MEDICAL TECHNOLOGIST Impressions 08/13/2024 11:35 AM OPHTHALMIC MEDICAL TECHNOLOGIST FINDINGS/IMPRESSION: 6 intraoperative fluoroscopic images are submitted for review. Fusion L4-L5 vertebral bodies. Postoperative changes of L3-L5 posterior fusion and decompression with L3-L4 interbody fusion device placement. Hardware is grossly intact. Please refer to the dedicated operative report for complete evaluation of real-time findings. Electronically signed by: Justus Toledo M.D. Narrative 08/13/2024 11:35 AM OPHTHALMIC MEDICAL TECHNOLOGIST EXAM: XR SPINE LUMBAR 2 OR 3 [...] esult * Check Sample (08/13/2024 6:59 AM OPHTHALMIC MEDICAL TECHNOLOGIST) ABO Rh O Positive [facility] OTHER 08/13/2024 6:59 AM OPHTHALMIC MEDICAL TECHNOLOGIST 08/13/2024 7:23 AM OPHTHALMIC MEDICAL TECHNOLOGIST Result [facility] Ara Robbins HEAD PACKAGER LAB BLOOD ORDERABLES Fi nal Result Performing Organization Address [facility] de Phone Number [facility] [address] Department [place] [address] MBC * Neuro MR Outside Reference (03/03/2024 12:00 AM CDT) Narrative RAD_PACS_OUTSIDE_FILM_[facility] - 08/13/2024 7:45 AM OPHTHALMIC MEDICAL TECHNOLOGIST This order has been auto-finalized and does not contain a result. Provider Transcribed Order IMG MRI PROCEDURES Fi nal Result Performing Organization Address [facility] de Phone Number [facility]TSIDE[facility] * Neuro MR Outside Reference (01/26/2024 12:00 AM CDT) Narrative [facility] - 08/13/2024 7:42 AM OPHTHALMIC MEDICAL TECHNOLOGIST This order has been auto-finalized and does not contain a result. Provider Transcribed Order IMG MRI PROCEDURES Fi nal Result Performing Organization Address [facility] de Phone Number [facility] documented in this encounter Visit Diagnoses Diagnosis [...] Pre-Emptive AnalgesiaIndications:Pre-Emptive Analgesia Given 08/13/2024 7:10 AM OPHTHALMIC MEDICAL TECHNOLOGIST 1,000 mg acetaminophen (TYLENOL) tablet 1,000 mg 1,000 mg, oral, Every 6 hours scheduled, First dose on Mon08/13/24 at 1530, Indications: PainIndications:Pain Given 08/14/2024 8:43 AM OPHTHALMIC MEDICAL TECHNOLOGIST 1,000 mg Given 08/14/2024 4:29 AM OPHTHALMIC MEDICAL TECHNOLOGIST 1,000 mg Given 08/13/2024 8:48 PM OPHTHALMIC MEDICAL TECHNOLOGIST 1,000 mg baclofen (LIORESAL) tablet 10 mg 10 mg, oral, Every 8 hours scheduled, First dose on Mon08/13/24 at 1530, Indications: Muscle spasmIndications:Muscle spasm Given 08/14/2024 4:29 AM OPHTHALMIC MEDICAL TECHNOLOGIST 10 mg Given 08/13/2024 8:48 PM OPHTHALMIC MEDICAL TECHNOLOGIST 10 mg Given 08/13/2024 4:05 PM OPHTHALMIC MEDICAL TECHNOLOGIST 10 mg dimenhyDRINATE (DRAMAMINE) tablet 25 mg 25 mg, oral, Once, On Mon08/13/24 at 0645, For 1 dose, Pre-Op, Indications: Prevention of Nausea and VomitingIndications:Prevention of Nausea and Vomiting Given 08/13/2024 7:10 AM OPHTHALMIC MEDICAL TECHNOLOGIST 25 mg diphenhydrAMINE (BENADRYL) tab/cap 25 mg 25 mg, oral, Nightly PRN, sleep, Starting on Mon08/13/24 at 1644 docusate sodium (COLACE) capsule 100 mg 100 mg, oral, 2 times daily, First dose on Mon08/13/24 at 2100, Hold for diarrhea, Indications: constipationIndications:constipation Given 08/14/2024 8:43 AM OPHTHALMIC MEDICAL TECHNOLOGIST 100 mg Given 08/13/2024 8:48 PM OPHTHALMIC MEDICAL TECHNOLOGIST 100 mg fentaNYL (SUBLIMAZE) preservative free injection 50 mcg 50 mcg, intravenous, Once as needed, breakthrough pain, Starting on Mon08/13/24 at 1205, For 1 dose, Phase I, Administer for uncontrolled or increasing pain while in PACU only. Given 08/13/2024 1:54 PM OPHTHALMIC MEDICAL TECHNOLOGIST 50 mcg gabapentin (NEURONTIN) capsule 300 mg 300 mg, oral, Once, On Mon08/13/24 at 0645, For 1 dose, Pre-Op, Indications: Pre-Emptive AnalgesiaIndications:Pre-Emptive Analgesia Given 08/13/2024 7:10 AM OPHTHALMIC MEDICAL TECHNOLOGIST 3 00 mg HYDROmorphone (DILAUDID) injection 0.2 mg 0.2 mg, [...] more., Indications: PainIndications:Pain Given 08/13/2024 12:20 PM OPHTHALMIC MEDICAL TECHNOLOGIST 0.2 mg HYDROmorphone (DILAUDID) injection 0.4 mg [...] more., Indications: PainIndications:Pain Given 08/13/2024 1:23 PM OPHTHALMIC MEDICAL TECHNOLOGIST 0.4 mg Given 08/13/2024 1:10 PM OPHTHALMIC MEDICAL TECHNOLOGIST 0.4 mg Given 08/13/2024 12:32 PM OPHTHALMIC MEDICAL TECHNOLOGIST 0.4 mg lidocaine in dextrose 5% 2 g/250 mL (8 mg/mL) infusion (premix) 1.5 mg/kg/hr ? 77.6 kg Radnor weight (14.55 mL/hr), 8 mg/mL, intravenous, Continuous, Starting on Mon08/13/24 at 1230, Until Mon08/14/24 at 1658, Indications: Pain, Call MD for symptoms of toxicity (ringing in ears, metallic taste, somnolence, numb lips) or lidocaine level greater than 5., RoutineIndications: Pain Restarted 08/13/2024 12:16 PM OPHTHALMIC MEDICAL TECHNOLOGIST 1.5 mg/kg/hr 14.55 mL/hr LORazepam (ATIVAN) 0.5 mg in sodium chloride 0.9% (further dilution required) injection 0.5 mg, intravenous, Every 6 hours PRN, anxiety, Starting on Mon08/13/24 at 1458, Withdraw ordered dose amount then dilute with equal volume of 0.9% sodium chloride. Administer total volume to patient. Do not exceed a rate of 2 mg/minute. Given 08/13/2024 10:21 PM OPHTHALMIC MEDICAL TECHNOLOGIST 0.5 mg nicotine (NICODERM CQ) 14 mg patch 24 hour 1 patch 1 patch, transdermal, Administer over 24 Hours, Daily, First dose on Mon08/13/24 at 1715, Apply a new patch every 24 hours to a clean, dry, hairless site on the upper arm or hip. Rotate site. Medication Applied 08/14/2024 8:44 AM OPHTHALMIC MEDICAL TECHNOLOGIST 1 patch Left Shoulder Medication Applied 08/13/2024 6:09 PM OPHTHALMIC MEDICAL TECHNOLOGIST 1 patch Right Arm oxyCODONE (ROXICODONE) tablet 5 mg 5 mg, oral, Every 4 hours while awake, First dose on Mon08/13/24 at 1530, Indications: PainIndications:Pain Given 08/14/2024 10:11 AM OPHTHALMIC MEDICAL TECHNOLOGIST 5 mg Given 08/14/2024 4:29 AM OPHTHALMIC MEDICAL TECHNOLOGIST 5 mg Given 08/13/2024 8:48 PM OPHTHALMIC MEDICAL TECHNOLOGIST 5 mg oxyCODONE (ROXICODONE) tablet 5 mg 5 mg, oral, As needed, 1st line for pain, Starting on Mon08/13/24 at 1205, For 2 doses, Phase I, 1st ORAL choice for pain, when the patient is able to tolerate PO medications. May repeat in 1 hour if pain is uncontrolled or increasing after 1st dose., Indications: PainIndications:Pain Given 08/13/2024 2:30 PM OPHTHALMIC MEDICAL TECHNOLOGIST 5 mg Given 08/13/2024 1:23 PM OPHTHALMIC MEDICAL TECHNOLOGIST 5 mg sodium chloride 0.9% infusion 30 mL/hr, intravenous, Continuous, Starting on Mon08/13/24 at 0645 New Bag 08/13/2024 9:55 AM OPHTHALMIC MEDICAL TECHNOLOGIST Rate/Dose Verify 08/13/2024 7:26 AM OPHTHALMIC MEDICAL TECHNOLOGIST 30 mL/h r New Bag 08/13/2024 7:11 AM OPHTHALMIC MEDICAL TECHNOLOGIST 30 mL/hr 30 mL/hr vancomycin 1,000 mg/200 mL in dextrose 5% (premix) 1,000 mg 1,000 mg, intravenous, Administer over 60 Minutes, Once, On Mon08/13/24 at 1900, For 1 dose, Administer 12 hours after last pre-operative dose., Indications: Prophylaxis, SurgicalIndications:Prophylaxis, Surgical New Bag 08/13/2024 6:28 PM OPHTHALMIC MEDICAL TECHNOLOGIST 1,000 mg vancomycin 1500 mg/250 mL in sodium chloride 0.9% (premix) 1,500 mg 1,500 mg, intravenous, Administer over 90 Minutes, Once, On Mon08/13/24 at 0645, For 1 dose, Pre-Op, Indications: Prophylaxis, SurgicalIndications:Prophylaxis, Surgical New Bag 08/13/2024 7:10 AM OPHTHALMIC MEDICAL TECHNOLOGIST 1,500 mg documented in this encounter Discontinued Medications Medication Sig Discontinue Reason Start Date End Da te ibuprofen (ADVIL,MOTRIN) 800 mg tablet Take 1 tablet (800 mg total) by mouth 3 (three) times a day as needed for pain Stop Taking at Discharge 02/25/2022 08/14/2024 documented as of this encounter Active and Recently Administered Medications Times are shown in OPHTHALMIC MEDICAL TECHNOLOGIST. Scheduled Medication Order 08/12/2024 08/13/2024 08/14/2024 acetaminophen (TYLENOL) tablet 1,000 mg (COMPLETED) 1,000 mg, oral, Once, On Mon08/13/24 at 0645, For 1 dose, Pre-Op, Indications: Pre-Emptive Analgesia 0710 (Given - Provider: Sarah Yin RN) acetaminophen (TYLENOL) tablet 1,000 mg 1,000 mg, oral, Every 6 hours scheduled, First dose on Mon08/13/24 at 1530, Indications: Pain 1605 (Given - Provider: Ella Calloway RN)2048 (Given - Provider: Latasha Hernandez RN) 0429 (Given - Provider: Latasha Hernandez RN)0843 (Given - Provider: Sera Jaimes RN) baclofen (LIORESAL) tablet 10 mg 10 mg, oral, Every 8 hours scheduled, First dose on Mon08/13/24 at 1530, Indications: Muscle spasm 1605 (Given - Provider: Ella Calloway RN)204 (Given - Provider: Latasha Hernandez RN) 0429 [...] the upper arm or hip. Rotate site. 180 (Medication Applied - Provider: Ella Calloway RN) [...] - Provider: Ella Calloway RN - Reason: Other)180 (Given - Provider: Ella Calloway RN)2048 (Given [...] infusion (premix) 1.5 mg/kg/hr ? 77.6 kg Radnor weight (14.55 mL/hr), 8 mg/mL, intravenous, Continuous, [...] Indications: Pain 1220 (Given - Provider: Carrie White, DEXTER) HYDROmorphone (DILAUDID) injection 0.4 mg (CANCELED) 0.4 [...] Carrie White RN)1310 (Given - Provider: Carrie White, DEXTER)1323 (Given - Provider: Carrie White, DEXTER) LORazepam (ATIVAN) 0.5 mg in sodium chloride [...] 0830, Intra-Op 0830 (Given - Provider: Stepan Brody MD - Comment: Mixed with 10mg decadron [...] Carrie White, RN)1430 (Given - Provider: Carrie White, RN) povidone-iodine (BETADINE PREP) 5 % ophthalmic [...] %) nebulizer solution 2.5 mg 1 08/13/2024 BUPivacaine-EPINEPHrine (MAR RAHEEM with EPI) 0.5 %-1:200,000 preservative free injection 1 08/13/2024 Carrier Fluids for Secondary Infusion - 0.9% Sodium Chloride 1 08/13/2024 ceFAZolin (ANCEF) 1,000 mg i n sodium chloride 0.9% 1,000 mL solution 1 08/13/2024 dexAMETHasone (DECADRON) 4 mg/mL injection 1 08/13/2024 dextrose (D10W) 10% bolus 250 mL 2 08/13/20 dextrose (GLUTOSE) 40 % gel 15 g 1 08/13/20 diphenhydrAMINE (BENADRYL) 5 0 mg/mL injection 12.5 mg 1 08/13/2024 diphenhydrAMINE (BENADRYL) tab/cap 25 mg 1 08/13/2024 fentaNYL (SUBLIMAZE) preserv ative free injection 25 mcg 1 08/13/2024 gentamicin (GARAMYCIN) injection 1 08/13/20 glucagon injection 1 mg 1 08/13/2024 haloperidol (HALDOL) injection 1 mg 1 08/13 insulin lispro (HumaLOG, ADM ELOG) 100 unit/mL injection 0-5 Units 1 08/13/2024 labetaloL (NORMODYNE,TRANDAT E) injection 5 mg 1 08/13/2024 Lactated Ringer's (LR) infusion 1 lidocaine (PF) (XYLOCAINE) 1 0 mg/mL (1 %) preservative free injection 2-10 mg 1 08/13/2024 meperidine (DEMEROL) preserv ative free injection 12.5 mg 1 08/13/2024 microfibrillar collagen (AVITENE) powder 1 08/13/2024 morphine preservative free injection 1 07/26 naloxone (NARCAN) 0.4 mg/mL injection 0.04-0.4 mg 1 08/13/2024 ondansetron (ZOFRAN) injection 4 mg 1 08/13 povidone-iodine (BETADINE CO EP) 5 % ophthalmic solution 1 08/13/2024 promethazine (PHENERGAN) tablet 25 mg 1 racepinephrine (ASTHMANEFRIN ) 2.25 % nebulizer solution 0.5 mL 1 08/13/2024 sodium chloride 0.9% flush 0.5-20 mL 3 07/26 sodium chloride 0.9% infusion 1 08/13/2024 thrombin-recombinant 5,000 u nit topical solution 1 08/13/2024 vancomycin (VANCOCIN) solution 1 08/13/2024 Admission Count Last Ordered Date First Orde red Date INITIATE OUTPATIENT IN A BED 1 08/13/2024 Discharge Count Last Ordered Date First Orde red Date DISCHARGE PATIENT 1 08/14/2024 CORE MEASURES Count Last Ordered Date First Ord ered Date REASON FOR NO VTE PROPHYLAXI S - HOSPITAL ADMISSION - MEDICATIONS 1 08/13/2024 documented in this encounter Care Teams Heavy Cleaner Relationship Specialty Start Date End Date Elton De La Fuente MD PCP - General Family Medicine 06/02/21 documented as of this encounter
--- OUTSIDE RECORDS SUMMARY | 2024-09-25 06:40 | XMS_ITS | Encounter Summary ---
Author Organization [facility] Healthcare Address [address] [place] [address] Care Team Providers Care Back Up Worker Name Role Phone Elton De La Fuente MD Primary Care Provider [phone] Encounter Details Date Type Department Care Team (Latest Contact Info) Description 07/23/2024 8:45 AM CDT Pre-Admission Testing [facility] Pre Anesthesia Testing [address] [place] [id number] Preoperative testing (Primary Dx) Anesthesia Record Procedure Summary Procedure Name Responsible Anesthesiologist Anesthesia Start Time Anesthesia Stop Time L3-5 Decompressive Laminectomy, Posterior Lumbar Interbody Fusion using Zavation EZ Span Cage, Mathew Screws, Local Autograph and L4-5 Repeat Discectomy (Back) Jason Christianson MD 08/13/24 0726 08/13/24 1148 Events Date Time Event Comment 08/13/2024 0711 0726 An Start 0730 In Room 0730 An Start Data 0734 An Induction The patient was reevaluated immediately before moderate or deep sedation use and before anesthesia induction. 0738 An Intubation 0743 Anesthesia Ready 0804 Proc Start 0804 Incision Start 0814 An Data Art 1140 Proc Fin 1142 Quick Note Positive Cuff l eak 1143 An Extubation 1143 an stop data 1144 Out of Room 1148 Handoff to RN I completed my handoff to the receiving nurse during which we: 1. Patient identified 2. Responsible provider identified 3. Pertinent medical history reviewed 4. Procedure type and surgical course discussed 5. Intraoperative anesthetic management and any significant issues discussed 6. Expectations and concerns for postop period discussed 7. Questions solicited from receiving nurse 8. Patient disposition at the time of handoff: No value filed. 1148 An Stop Meds * Agents No agents on file. * Blood No blood administrations on file. Lines, Drains, and Airways Type Details Placement Removal Peripheral IV Placement Date: 08/13/24; Placement Time: 0708; Catheter Size: 18 G; Orientation: Left, Posterior; Location: Hand; Technique: Anatomical landmarks; Inserted by: chano mendoza; Insertion Attempts: 1; Patient Tolerance: Tolerated well; Removal Date: 08/14/24; Removal Time: 1245; Removal Reason: Discharge 08/13/24 0708 by Sarah Yin RN 08/14/24 1245 by Arin Cortez RN Peripheral IV Placement Date: 08/13/24; Placement Time: 07; Orientation: Right; Location: Hand; Site Prep: Chlorhexidine; Technique: Anatomical landmarks; Inserted by: Dr Christianson; Insertion Attempts: 1; Removal Date: 08/14/24; Removal Time: 1245; Removal Reason: Discharge 08/13/24 0741 by Naomi Galvan, INSPECTOR SET UP AND LAY OUT 08/14/24 1245 by Arin Cortez RN Urethral Catheter Placement Date: 08/13/24; Placement Time: 0742; Inserted by: IRMA Dougherty; Type: Double-lumen, Non-latex; Balloon Size: 10 mL; Urine Returned: Yes; Removal Date: 08/14/24; Removal Time: 0727 08/13/24 0742 by El Diego RN 08/14/24 0727 by Latasha Hernandez RN ETT Placement Date: 08/13/24; Placement Time: 0801 (created via procedure documentation); Mask Ventilation: 2; Technique: Video laryngoscopy; Type: ETT - single; Single Lumen Tube Size: 8 mm; Cuffed: Yes; Laryngoscope: Palomo; Blade Size: 3; Location: Oral; Insertion Attempts: 1; Placement Verification: Auscultation, Capnometry; Removal Date: 08/13/24; Removal Time: 1143 08/13/24 0801 by Naomi Galvan, INSPECTOR SET UP AND LAY OUT 08/13/24 1143 by Jason Christianson MD Wound 08/13/24; 0808; N; Incision; Back; Lower; 09/19/24; 1120; Removal date unknown 08/13/24 0808 by El Diego RN 09/19/24 1120 by Kelly Shepard, DEXTER Closed/Suction/Open Drain 08/13/24; 1107; 1; Inferior, Midline; Back; Accordion; 10 Fr.; Removal date unknown/not present on admission 08/13/24 1107 by El Diego RN 09/19/24 1120 by Kelly Shepard, DEXTER documented in this encounter Social History Tobacco Use Types Packs/Day Years Used Date Smoking Tobacco: Every Day Cigarettes 1 20 Smokeless Tobacco: Never Tobacco Cessation:Ready to [...] on file 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 Gender Identity Not on file Sexual Orientation Not on file 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 Not on file Not on file Not on file documented as of this encounter Last Filed Vital Signs Vital Sign Reading Time Taken Comments Blood Pressure 137/69 07/23/2024 9:25 AM CDT Pulse 73 07/23/2024 9:25 AM CDT Temperature - - Respiratory Rate - - Oxygen Saturation 98% 07/23/2024 9:25 AM CDT Inhaled Oxygen Concentration - - Weight 82.6 kg (182 lb) 07/23/2024 9:25 AM CDT Height 177.8 cm (5' 10 ) 07/23/2024 9:25 AM CDT Body Mass Index 26.11 07/23/2024 9:25 AM CDT documented in this encounter Miscellaneous Notes * Perioperative Nursing Note - Jewels Faust RN - 07/23/2024 8:45 AM CDT Uday wipe kit and instructions given to patient. Patient verbalizes understanding. Reviewed currentvisitor policy of only two visitors in pre- op/surgical waiting room with patient. Visiting restrictions when patient is inpatient is up to nurse's discretion on the floor. Patient verbalized understan ashutosh. * Pre-Procedure Instructions - Ara Robbins NP - 07/23/2024 8:45 AM CDT [facility] PREOPERATIVE GUIDELINES SURGERY DATE: 08/13/2024 ARRIVAL TIME: 05:30 AM SURGERY TIME: 07:30 AM Surgery time is subject to change. A distribution analyst will call to confirm arrival and surgery times the day before surgery. FOOD & DRINK INSTRUCTIONS DO NOT EAT OR DRINK anything after midnight the night before surgery. You may take your morning medications with a few sips of water. DO NOT EAT anything after midnight the night before surgery. You may continue to drink only Gatorade (Not G2), Powerade (Not Powerade Zero) and water up to 3 hours (04:30 AM) prior to surgery. Do NOT drink anything else. MEDICATION INSTRUCTIONS STOP these meds 7 days before surgery: multivitamins, weight loss medications, Vitamin E, fish oil,herbal supplements, and NSAIDS [Motrin/Advil (Ibuprofen), Aleve (Naproxen), Celebrex (Celecoxib), Excedrin, Indomethacin, Diclofenac, Mobic (Meloxicam), etc.] It is okay to continue Acetaminophen (Tylenol), Vitamins B12/C/D, Calcium, Zinc, Iron, Magnesium, Potassium, Allergy medications, Nasal sprays, Eye Drops, or Muscle relaxants. PRE-SURGERY MEDICATION INSTRUCTIONS: Pre-Surgery Instructions: Medication Instructions HYDROcodone-acetaminophen (NORCO) 7.5-325 mg per tablet Take on day of surgery if needed ibuprofen (ADVIL,MOTRIN) 800 mg tablet Stop taking 1 week prior to surgery TiZANidine (ZANAFLEX) 4 mg capsule Take on day of surgery if needed OTHER SPECIAL INSTRUCTIONS DO NOT SMOKE OR USE TOBACCO PRODUCTS ON DAY OF SURGERY Bring: Photo ID card, health insurance card, advance directive or durable power of civil attorney (if youhave one). Bring: eye glasses with case (no contact lenses), dentures with case, hearing aids, and comfortableclothing for going home. If you use a CPAP machine, inhalers, or implantable devices with a remote, bring them to the hospital on the day of surgery. NO Jewelry (including body piercings), make up, hair pins, or valuable items. Follow preoperative skin preparation and/or bowel prep if directed by your surgeon. Contact your surgeon if there are any changes in your medical condition, medications or if you develop an infection. IMPORTANT: If you have any questions about these instructions, please call ROOSEVELT Bullock, at [phone] (M-F, 8AM-4:30PM) [facility] documented in this encounter Plan of Treatment Not on file documented as of this encounter Procedures Procedure Name Priority Date/Time Associated Diagnosis Comments DIFFERENTIAL AUTO Routine 07/23/2024 10: 10 AM CDT Preoperative testing CBC WITH AUTO DIFFERENTIAL Routine 07/23/2024 10:10 AM CDT Preoperative testing VITAMIN D 25 HYDROXY Routine 07/23/2024 10:10 AM CDT Preoperative testing HEMOGLOBIN A1C Routine 07/23/2024 10:10 AM CDT Preoperative testing TYPE AND SCREEN Routine 07/23/2024 9:54 AM CDT Preoperative testing documented in this encounter Results * Differential, auto (07/23/2024 10:10 AM CDT) Neutrophil abs 5.6 1.5 - 6.5 K/cumm Imm gran abs 0.0 0.0 - 0.1 K/cumm [facility] Lymphocyte abs 2.1 0.8 - 3.3 K/cumm [facility] Monocyte abs 0.7 0.2 - 0.8 K/cumm [facility] Eosinophil abs 0.2 0.0 - 0.5 K/cumm [facility] Basophil abs 0.0 0.0 - 0.1 K/cumm [facility] Neutrophil pct 64.7 % [facility] Comment: Interpretive Data Percent cell count reference ranges are not reported, since discordance with absolute values may lead to misinterpretation of CBC data. Current Interpretive Data was last revised on 2018. Imm gran pct 0.2 % [facility] Comment: Interpretive Data Percent cell count reference ranges are not reported, since discordance with absolute values may lead to misinterpretation of CBC data. Current Interpretive Data was last revised on 2018. Lymphocyte pct 24.8 % [facility] Comment: Interpretive Data Percent cell count reference ranges are not reported, since discordance with absolute values may lead to misinterpretation of CBC data. Current Interpretive Data was last revised on 2018. Monocyte pct 8.1 % [facility] Comment: Interpretive Data Percent cell count reference ranges are not reported, since discordance with absolute values may lead to misinterpretation of CBC data. Current Interpretive Data was last revised on 2018. Eosinophil pct 1.7 % [facility] Comment: Interpretive Data Percent cell count reference ranges are not reported, since discordance with absolute values may lead to misinterpretation of CBC data. Current Interpretive Data was last revised on 2018. Basophil pct 0.5 % [facility] Comment: Interpretive Data Percent cell count reference ranges are not reported, since discordance with absolute values may lead to misinterpretation of CBC data. Current Interpretive Data was last revised on 2018. Blood 07/23/2024 10:1 0 AM CDT 07/23/2024 10:10 AM CDT us Ara Robbins NP LAB BLOOD ORDERABLES Fi nal Result [facility] [address] Department [place] [address] * Vitamin D 25 hydroxy (07/23/2024 10:10 AM CDT) Pathologist [facility] Vitamin D 25-OH 38 30 - 80 ng/mL Blood 07/23/2024 10:1 0 AM CDT 07/23/2024 10:10 AM CDT Ara Robbins SURVEY WORKERS SUPERVISOR LAB BLOOD ORDERABLES Fi nal Result Performing Organization Address [facility] [[email or web address]] de Phone Number [facility] [address] [facility] [place] [address] * (ABNORMAL) Hemoglobin A1c (07/23/2024 10:10 AM CDT) [facility] Hgb A1C 5.7(H) 4.0 - 5.6 % Estimated Average Glucose 117 mg/dL [facility] Comment: The ADA recommends reporting an estimated Average Glucose (eAG) with all Hemoglobin A1c results using the equation derived from a study of 507 normal and diabetic adults. ??Minority populations were underrepresented and children were not included. ?? (Diabetes Care 31:5308-5807, 2008). ??The eAG is not equivalent to a fasting glucose. Blood 07/23/2024 10:1 0 AM CDT 07/23/2024 10:10 AM CDT Ara Robbins NP LAB BLOOD ORDERABLES Fi nal Result Performing Organization Address [facility] Co de Phone Number [facility] [address] [facility] [employer] [place], [place] [id number] * CBC with auto differential (07/23/2024 10:10 AM CDT) [facility] WBC 8.6 3.8 - 9.9 K/cumm Hgb 15.7 13.0 - 17.5 g/dL [facility] Hct 47.5 38.9 - 50.3 % [facility] Plt 184 150 - 400 K/cumm [facility] MPV 11.6 9.1 - 12.3 fL [facility] RBC 5.27 4.30 - 5.80 M/cumm [facility] MCV 90.1 81.3 - 96.4 fL [facility] MCH 29.8 27.1 - 33.3 pg [facility] MCHC 33.1 32.3 - 35.7 g/dL [facility] RDW CV 12.9 11.1 - 14.9 % [facility] RDW SD 42.5 35.7 - 48.1 fL [facility] NRBC abs 0.00 0.00 - 0.01 K/cumm [facility] Blood 07/23/2024 10:1 0 AM CDT 07/23/2024 10:10 AM CDT Ara Robbins NP LAB BLOOD ORDERABLES Fi nal Result Performing Organization Address [facility]/ZIP Co de Phone Number [facility] [address] [place] [address] * Type and screen (07/23/2024 9:54 AM CDT) Napoleon, indirect Negative ABO Rh O Positive [facility] Blood 07/23/2024 9:54 AM CDT 07/23/2024 10:24 AM CDT Narrative [facility] - 07/23/2024 11:28 AM CDT Is this test being ordered in advance for a procedure?->Yes Expected date of procedure:->08/13/24 Has the patient been transfused in the past 3 months?->No Ara Robbins NP LAB BLOOD BANK TEST ORD ERABLES Final Result Performing Organization Address City/[facility]/ZIP Co de Phone Number [facility] [address] [place] [address] documented in this encounter Visit Diagnoses Diagnosis Preoperative testing- Primary Unspecified pre-operative examination documented in this encounter Discontinued Medications Medication Sig Discontinue Reason Start Date End Da te cetirizine (ZyrTEC) 10 mg tablet Take 10 mg by mouth daily Error 07/23/[address] (VOLTAREN) 75 mg EC tablet Take 75 mg by mouth 2 (two) times a day Error 05/21/2021 07/23/2024 methocarbamoL (ROBAXIN) 500 mg tablet Take 1 tablet (500 mg total) by mouth 2 (two) times a day Error 06/28/2021 07/23/2024 documented as of this encounter Historical Medications * This list may reflect changes made after this encounter. TiZANidine (ZANAFLEX) 4 mg capsule Take 1 capsule (4 mg total) by mouth 3 (three) times a day as needed for muscle spasms 09/18/2024 added in this encounter Care Teams Back Up Worker Relationship Specialty Start Date End Date Elton De La Fuente MD PCP - General Family Medicine 06/02/21 documented as of this encounter
--- OUTSIDE RECORDS SUMMARY | 2024-09-25 06:40 | XMS_ITS | Referral Summary ---
Author Organization [facility] Address [address] [place] [address] Care Team Providers Care Sap Data Architect Name Role Phone Elton De La Fuente MD Primary Care Provider [phone] Encounters Date Type Department Care Team Description 09/19/2024 10:31 AM PALLET ASSEMBLER Anesthesia Event [facility] Operating Room [address] [place] [phone] Stephenie Rodriguez DO Tynes, Jessika Olegovna, AGATHA 09/19/2024 10:03 AM PALLET ASSEMBLER - 09/19/2024 12:08 PM PALLET ASSEMBLER Surgery [facility] Operating Room [address] [place] [phone] Kevin Brody MD INCISION AND DRAINAGE - LUMBAR 09/18/2024 Orders Only [address] [phone] Kita Astudillo MD 09/18/2024 7:53 PM PALLET ASSEMBLER - Present Hospital Encounter [facility] [address] [place] [address] [phone] Kita Astudillo MD Willis, Devin Ray, MD Sufi, Jovany Weeks MD Wound infection (Primary Dx); Cellulitis of other specified site 09/17/2024 Patient Self-Triage [facility] [address] [place] [address] [place] [address] Mychart, Generic Provider 08/13/2024 5:41 AM PALLET ASSEMBLER - 08/14/2024 12:58 PM PALLET ASSEMBLER Hospital Encounter [address] [phone] Kevin Brody MD Pseudoclaudication syndrome Discharge Disposition: Discharge to home or self care 08/13/2024 Orders Only [facility] Operating Room [address] [place] [phone] Kevin Brody MD 08/13/2024 7:30 AM PALLET ASSEMBLER - 08/13/2024 12:30 PM PALLET ASSEMBLER Surgery [facility] Operating Room [address] [place] [phone] Kevin Brody MD L3-5 Decompressive Laminectomy, Posterior Lumbar Interbody Fusion using Zavation EZ Span Cage, Mathew Screws, Local Autograph and L4-5 Repeat Discectomy 08/13/2024 7:26 AM PALLET ASSEMBLER Anesthesia Event [facility] Operating Room [address] [place] [phone] Jason Christianson MD Salameh, Besan Mohammed, PA 07/30/2024 10:15 AM PALLET ASSEMBLER Office Visit [facility] [address] [place] [phone] Hunter Smith MD Preop cardiovascular exam (Primary Dx); Tobacco abuse; Lipid screening 07/23/2024 Telephone [facility] Anesthesia [address] [place] [phone] Ara Robbins NP 07/23/2024 8:45 AM CDT Pre-Admission Testing [facility] Pre Anesthesia Testing [address] [place] [phone] Preoperative testing (Primary Dx) from Last 3 Months Allergies Active Allergy Reactions Criticality Noted Date Comments Pseudoephedrine Other (See comments) Low 06/02/2021 shakey Medications oxyCODONE-acetamin ophen (PERCOCET) 5-325 mg per tabletIndications: Pain Take 1 tablet by mouth every 4 (four) hours as needed for pain 10 tablet 09/24/20 Active acetaminophen (TYLENOL) 325 mg tabletIndications: Fever,Pain Take 2 tablets (650 mg total) by mouth every 4 (four) hours as needed for pain 09/24/20 Active cefTRIAXone (ROCEPHIN) syringeIndications :Skin/Soft Tissue Infection Infuse 20 mL (2,000 mg total) into a venous catheter daily 09/25/19 025 Active docusate sodium (COLACE) 100 mg capsuleIndications :constipation Take 1 capsule (100 mg total) by mouth 2 (two) times a day 09/24/20 Active nicotine (NICODERM CQ) [address] 1 patch on the skin daily 09/25/19 025 Active ondansetron ODT (ZOFRAN-ODT) 4 mg disintegrating tabletIndications: Nausea and Vomiting Take 1 tablet (4 mg total) by mouth every 6 (six) hours as needed for nausea or vomiting 09/24/20 Active HYDROcodone-acetam inophen (NORCO) 7.5-325 mg per tablet Take by mouth every 8 (eight) hours as needed 02/26/20 Discontinued TiZANidine (ZANAFLEX) 4 mg capsule Take 1 capsule (4 mg total) by mouth 3 (three) times a day as needed for muscle spasms Discontinued oxyCODONE-acetamin ophen (PERCOCET) 5-325 mg per tabletIndications: Pain Take 1 tablet by mouth every 4 (four) hours as needed for pain Discontinued methocarbamoL (ROBAXIN) 750 mg tablet Take 1 tablet (750 mg total) by mouth 3 (three) times a day Suspended pregabalin (LYRICA) 75 mg capsule Take 1 capsule (75 mg total) by mouth 2 (two) times a day Suspended Active Problems Problem Noted Date Diagnosed Date Wound infection 09/18/2024 Cellulitis 09/18/2024 Lumbar stenosis with neurogenic claudication Emphysema lung 07/23/2024 Tobacco use 07/23/2024 Immunizations Name Administration Dates Next Due Influenza, Trivalent, Preservative Free, Intramu scular 09/21/2024 Social History Tobacco Use Types Packs/Day Years Used Date Smoking Tobacco: Every Day Cigarettes 0.2 20 Smokeless Tobacco: Never Tobacco Cessation:Ready to Q uit: Not Asked; Counseling Given: Not Answered Alcohol Use Standard Drinks/Week Comments Not Currently 0 (1 standard drink = 0.6 oz pur e alcohol) Recovering alcoholic-whiskey [facility] Utilities Answer Date Recorded In the past 12 months has e [employer], gas, oil, or water [employer] threatened to shut off services in your home? No 09/19/2024 Social Connection and Isolat ion Panel [NHANES] Answer Date Recorded In a typical week, how many times do you talk on the phone with family, friends, or neighbors? More than three times a week 09/19/2024 How often do you get togethe r with friends or relatives? Twice a week 09/19/2024 How often do you attend [facility] or confucianism services? Never 09/19/2024 Do you belong to any clubs o r organizations such as sikh groups, unions, fraternal or athletic groups, or school groups? No 09/19/2024 How often do you attend meet ings of the clubs or organizations you belong to? 1 to 4 times per year 09/19/2024 Are you , , di vorced, , never , or living with a partner? 09/19/2024 AUDIT-C Answer Date Recorded Q1: How often do you have a drink containing alcohol? Never 09/19/2024 Q2: How many drinks containi ng alcohol do you have on a typical day when you are drinking? Patient does not drink Q3: How often do you have si x or more drinks on one occasion? Never 09/19/2024 Overall Financial Resource Strain (CARDIA) Answe r Date Recorded How hard is it for you to pa y for the very basics like food, housing, medical care, and heating? Not hard at all 09/19/2024 Hunger Vital Sign Answer Date Recorded Within the past 12 months, y ou worried that your food would run out before you got the money to buy more. Never true 09/19/20 24 Within the past 12 months, t he food you bought just didn't last and you didn't have money to get more. Never true 09/19/2024 PRAPARE - Transportation Answer Date Re corded In the past 12 months, has l ack of transportation kept you from medical appointments or from getting medications? No 08/26 In the past 12 months, has l ack of transportation kept you from meetings, work, or from getting things needed for daily living? No 09/19/2024 Housing Stability Vital Sign Answer Andrew e Recorded In the last 12 months, was t here a time when you were not able to pay the mortgage or rent on time? No 09/19/2024 In the past 12 months, how m any times have you moved where you were living? 0 09/19/2024 At any time in the past 12 m [facility], were you homeless or living in a intermediate (including now)? No 09/19/2024 Personal Safety Answer Date Recorded Have you ever been in or are you currently in a harmful physical or emotional relationship or is someone making you feel afraid or unsafe? 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 Not on file Not on file Not on file Last Filed Vital Signs Vital Sign Reading Time Taken Comments Blood Pressure 130/63 09/25/2024 4:31 AM PALLET ASSEMBLER Pulse 62 09/25/2024 4:31 AM PALLET ASSEMBLER Temperature 36.6 ??C (97.8 ??F) 09/25/2024 4:31 AM CS T Respiratory Rate 15 09/25/2024 4:31 AM PALLET ASSEMBLER Oxygen Saturation 98% 09/25/2024 4:31 AM PALLET ASSEMBLER Inhaled Oxygen Concentration - - Weight 84.4 kg (186 lb) 09/19/2024 9:40 AM PALLET ASSEMBLER Height 182.9 cm (6') 09/19/2024 9:40 AM PALLET ASSEMBLER Body Mass Index 25.23 09/19/2024 9:40 AM PALLET ASSEMBLER Plan of Treatment Not on file Medical Devices Implanted Type Area Auto Job Estimator Device Identifier Shelf Expiration Date Model / Serial / Lot Biocomposites Stimulan Rapid Cure Kit Paste Electrical Engineer Mep 5cc 12.5cc Bone Void 620-005 - [id number] Implanted:Qty: 1 on 08/13/2024 by Kevin Brody MD at [facility] N/A: Spine Lumbar Biocomposites [id number] 04/24/2027 620-005 / / [id number] [employer] Cage Spinal Lumbar 10 Degree Tlif Expandable 7-11.5mm Titanium [id number] - [id number] Implanted:Qty: 2 on 08/13/2024 by Kevin Brody MD at [facility] N/A: Spine Lumbar [employer] [id number] 10 / / Excelsior Spine 4.5mm 35mm Polyaxial Spine Screw Bone Deformity [id number] - [id number] Implanted:Qty: 6 on 08/13/2024 by Kevin Brody MD at [facility] N/A: Spine Lumbar Amina Spine [id number] 5 / / Excelsior Spine 4.5mm 75mm Contour Ulises Spinal Cocr [id number] - [id number] Implanted:Qty: 2 on 08/13/2024 by Kevin Brody MD at [facility] N/A: Spine Lumbar Amina Spine [id number] / / Excelsior Spine 26mm Semiadjustable Transverse Spine Connector Ulises Posterior [id number] - [id number] Implanted:Qty: 1 on 08/13/2024 by Kevin Brody MD at [facility] N/A: Spine Lumbar Excelsior Spine [id number] 6A / / Excelsior Spine 32mm Semiadjustable Transverse Spine Connector Ulises Posterior [id number] - [id number] Implanted:Qty: 1 on 08/13/2024 by Kevin Brody MD at [facility] N/A: Spine Lumbar Amina Spine [id number] 2A / / Procedures * The patient is currently admitted. The information in this section might not be complete until the patient is discharged. Procedure Name Priority Date/Time Associated Diagnosis Comments EGFR Routine 09/25/2024 5:49 AM PALLET ASSEMBLER RENAL FUNCTION PANEL Routine 09/25/2024 5:49 AM PALLET ASSEMBLER EGFR Routine 09/24/2024 7:50 AM PALLET ASSEMBLER RENAL FUNCTION PANEL Routine 09/24/2024 7:50 AM PALLET ASSEMBLER CBC WITHOUT DIFFERENTIAL Routine 09/24/2024 7:50 AM PALLET ASSEMBLER DRUGS OF ABUSE SCREEN, URINE WITHOUT CONFIRMATION Routine 09/23/2024 6:26 PM PALLET ASSEMBLER EGFR Routine 09/23/2024 6:17 AM PALLET ASSEMBLER RENAL FUNCTION PANEL Routine 09/23/2024 6:17 AM PALLET ASSEMBLER CBC WITHOUT DIFFERENTIAL Routine 09/23/2024 6:17 AM PALLET ASSEMBLER XR CHEST 1 VIEW ED Urgent/IP Urgent 09/22/2024 12:05 PM PALLET ASSEMBLER LA INSJ NON-TUNNELED CENTRAL VENOUS CATH AGE 5 YR/> Routine 09/22/2024 11:15 AM PALLET ASSEMBLER Wound infection EGFR Routine 09/22/2024 8:12 AM PALLET ASSEMBLER RENAL FUNCTION PANEL Routine 09/22/2024 8:12 AM PALLET ASSEMBLER CBC WITHOUT DIFFERENTIAL Routine 09/22/2024 8:12 AM PALLET ASSEMBLER EGFR Routine 09/21/2024 6:09 AM PALLET ASSEMBLER RENAL FUNCTION PANEL Routine 09/21/2024 6:09 AM PALLET ASSEMBLER CBC WITHOUT DIFFERENTIAL Routine 09/21/2024 6:09 AM PALLET ASSEMBLER VANCOMYCIN LEVEL TROUGH Timed 09/20/2024 5:36 PM PALLET ASSEMBLER CBC WITHOUT DIFFERENTIAL Routine 09/20/2024 5:58 AM PALLET ASSEMBLER MYCOLOGY (FUNGAL) CULTURE Routine 09/19/2024 11:08 AM PALLET ASSEMBLER TISSUE AEROBIC AND ANAEROBIC CULTURE AND GRAM STAIN Routine 09/19/2024 11:08 AM PALLET ASSEMBLER MYCOLOGY (FUNGAL) CULTURE Routine 09/19/2024 11:07 AM PALLET ASSEMBLER AEROBIC AND ANAEROBIC CULTURE AND GRAM STAIN Routine 09/19/2024 11:07 AM PALLET ASSEMBLER MYCOLOGY (FUNGAL) CULTURE Routine 09/19/2024 11:07 AM PALLET ASSEMBLER AEROBIC AND ANAEROBIC CULTURE AND GRAM STAIN Routine 09/19/2024 11:07 AM PALLET ASSEMBLER LA AN PROCEDURE PLACEHOLDER Routine 09/19/2024 10:49 AM PALLET ASSEMBLER LA AN ELECTIVE ENDOTRACHEAL AIRWAY Routine 09/19/2024 10:49 AM PALLET ASSEMBLER INCISION AND DRAINAGE - BACK 09/19/2024 10:30 AM PALLET ASSEMBLER LUMBAR WOUND INFECTION DIFFERENTIAL AUTO Routine 09/19/2024 1:1 9 AM PALLET ASSEMBLER CBC WITH AUTO DIFFERENTIAL Routine 09/19/2024 1:19 AM PALLET ASSEMBLER EGFR Routine 09/19/2024 12:55 AM PALLET ASSEMBLER COMPREHENSIVE METABOLIC PANEL Routine 09/19/2024 12:55 AM PALLET ASSEMBLER BLOOD CULTURE Routine 09/19/2024 12:55 AM PALLET ASSEMBLER BLOOD CULTURE Routine 09/19/2024 12:55 AM PALLET ASSEMBLER CBC WITHOUT DIFFERENTIAL Routine 08/14/2024 7:13 AM PALLET ASSEMBLER SURGICAL PATHOLOGY Routine 08/13/2024 11:16 AM PALLET ASSEMBLER FL FLUOROSCOPY < 1 HOUR IP Routine 08/13/2024 11:08 AM PALLET ASSEMBLER XR SPINE LUMBAR 2 OR 3 VIEWS IP Routine 08/13/2024 11:08 AM PALLET ASSEMBLER LA AN PROCEDURE PLACEHOLDER Routine 08/13/2024 7:59 AM PALLET ASSEMBLER LA AN ELECTIVE ENDOTRACHEAL AIRWAY Routine 08/13/2024 7:59 AM PALLET ASSEMBLER FUSION LUMBAR - POSTERIOR 2 LEVELS 08/13/2024 7:30 AM PALLET ASSEMBLER Pseudoclaudication syndrome B CHECK SAMPLE STAT 08/13/2024 6:59 AM PALLET ASSEMBLER POCT LIPID PANEL Routine 07/30/2024 10:33 AM PALLET ASSEMBLER Lipid screening ECG 12-LEAD Routine 07/30/2024 10:22 AM PALLET ASSEMBLER Preop cardiovascular exam DIFFERENTIAL AUTO Routine 07/23/2024 10:10 AM CDT Preoperative testing CBC WITH AUTO DIFFERENTIAL Routine 07/23/2024 10:10 AM CDT Preoperative testing HEMOGLOBIN A1C Routine 07/23/2024 10:10 AM CDT Preoperative testing VITAMIN D 25 HYDROXY Routine 07/23/2024 10:10 AM CDT Preoperative testing TYPE AND SCREEN Routine 07/23/2024 9:54 AM CDT Preoperative testing from Last 3 Months Results * eGFR (09/25/2024 5:49 AM PALLET ASSEMBLER) [facility] eGFR >90 >=60 mL/min/1. 73 m2 Comment: Interpretive Data Reference Interval Normal ?>/= 90 mL/min/1.73m2 Mildly decreased* ? 60 - 89 mL/min/1.73m2 Mildly to moderately decreased ?45 - 59 mL/min/1.73m2 Moderately to severely decreased ??30 - 44 mL/min/1.73m2 Severely decreased ?15 - 29 mL/min/1.73m2 Kidney Failure ?< 15 ??mL/min/1.73m2 *Relative to young adult level Estimated glomerular filtration rate is determined by the 2020 CKD-EPI equation recommended by the National Kidney Foundation (A Unifying Approach to GFR Estimation: Recommendations of the NKF-ASK Task Force on Reassessing the Inclusion of Race in Diagnosing Kidney Disease, JASN 202). The CKD-EPI equation should not be used for patients with unstable renal function and has not been validated in children and those over 70. Current interpretive data was last reviewed 2021. Blood 09/25/2024 5:49 AM PALLET ASSEMBLER 09/25/2024 6:01 AM PALLET ASSEMBLER us Mitchell Grajeda MD LAB BLOOD ORDERABLES Final R esult [facility] [address] [place] [address] * (ABNORMAL) Renal function panel (09/25/2024 5:49 AM PALLET ASSEMBLER) Sodium 142 135 - 145 mmol/L Potassium, pl 3.9 3.3 - 4.9 mmol/L [facility] Chloride 103 97 - 110 mmol/L [facility] CO2 29 22 - 32 mmol/L [facility] Anion gap 10 2 - 15 mmol/L [facility] BUN 10 6 - 25 mg/dL [facility] Creatinine 0.70(L) 0.80 - 1.30 mg/dL [facility] Glucose 88 70 - 199 mg/dL [facility] Comment: Interpretive Data Fasting glucose >/= 126 mg/dl is diagnostic for diabetes. ?? Fasting is defined as no caloric intake for at least 8 hours. Fasting glucose between 100 mg/dl to 125 mg/dl is diagnostic of prediabetes. In a patient with classic symptoms of hyperglycemia or hyperglycemic crisis, a random glucose >/= 200 mg/dl is diagnostic for diabetes. In the absence of unequivocal hyperglycemia, results should be confirmed by repeat testing. The classification and Diagnosis of Diabetes Diabetes Care 202; 46: S19-S40. Current interpretive data was last revised 2022. Calcium 8.8 8.5 - 10.3 mg/dL [facility] Phosphorus, pl 4.1 2.3 - 4.5 mg/dL [facility] Albumin 3.7 3.5 - 5.0 g/dL [facility] Blood 09/25/2024 5:49 AM PALLET ASSEMBLER 09/25/2024 6:01 AM PALLET ASSEMBLER us Mitchell Grajeda MD LAB BLOOD ORDERABLES Final R esult [facility] [address] Department [place] [address] * eGFR (09/24/2024 7:50 AM PALLET ASSEMBLER) eGFR >90 >=60 mL/min/1. 73 m2 Comment: Interpretive Data Reference Interval Normal ?>/= 90 mL/min/1.73m2 Mildly decreased* ? 60 - 89 mL/min/1.73m2 Mildly to moderately decreased ?45 - 59 mL/min/1.73m2 Moderately to severely decreased ??30 - 44 mL/min/1.73m2 Severely decreased ?15 - 29 mL/min/1.73m2 Kidney Failure ?< 15 ??mL/min/1.73m2 *Relative to young adult level Estimated glomerular filtration rate is determined by the 2020 CKD-EPI equation recommended by the National Kidney Foundation (A Unifying Approach to GFR Estimation: Recommendations of the NKF-ASK Task Force on Reassessing the Inclusion of Race in Diagnosing Kidney Disease, JASN 202). The CKD-EPI equation should not be used for patients with unstable renal function and has not been validated in children and those over 70. Current interpretive data was last reviewed 2021. Blood 09/24/2024 7:50 AM PALLET ASSEMBLER 09/24/2024 8:09 AM PALLET ASSEMBLER us Mitchell Grajeda MD LAB BLOOD ORDERABLES Final R esult Performing Organization Address [facility] Co de Phone Number [facility] [address] [employer] [place], [place] [id number] * (ABNORMAL) CBC without differential (09/24/2024 7:50 AM PALLET ASSEMBLER) Pathologist [facility] WBC 11.4(H) 3.8 - 9.9 K/cumm Hgb 13.0 13.0 - 17.5 g/dL [facility] Hct 40.2 38.9 - 50.3 % [facility] Plt 280 150 - 400 K/cumm [facility] MPV 10.8 9.1 - 12.3 fL [facility] RBC 4.40 4.30 - 5.80 M/cumm [facility] MCV 91.4 81.3 - 96.4 fL [facility] MCH 29.5 27.1 - 33.3 pg [facility] MCHC 32.3 32.3 - 35.7 g/dL [facility] RDW CV 13.0 11.1 - 14.9 % [facility] RDW SD 43.6 35.7 - 48.1 fL [facility] NRBC abs 0.00 0.00 - 0.01 K/cumm [facility] Blood 09/24/2024 7:50 AM PALLET ASSEMBLER 09/24/2024 8:10 AM PALLET ASSEMBLER us Kevin Brody MD LAB BLOOD ORDERABLES Suzie l Result Performing Organization Address [facility]/ZIP Co de Phone Number [facility] [address] Department [employer] [place], [place] [phone] * (ABNORMAL) Renal function panel (09/24/2024 7:50 AM PALLET ASSEMBLER) Pathologist [facility] Sodium 141 135 - 145 mmol/L Potassium, pl 4.0 3.3 - 4.9 mmol/L [facility] Chloride 101 97 - 110 mmol/L [facility] CO2 28 22 - 32 mmol/L [facility] Anion gap 12 2 - 15 mmol/L [facility] BUN 13 6 - 25 mg/dL [facility] Creatinine 0.75(L) 0.80 - 1.30 mg/dL [facility] Glucose 154 70 - 199 mg/dL [facility] Comment: Interpretive Data Fasting glucose >/= 126 mg/dl is diagnostic for diabetes. ?? Fasting is defined as no caloric intake for at least 8 hours. Fasting glucose between 100 mg/dl to 125 mg/dl is diagnostic of prediabetes. In a patient with classic symptoms of hyperglycemia or hyperglycemic crisis, a random glucose >/= 200 mg/dl is diagnostic for diabetes. In the absence of unequivocal hyperglycemia, results should be confirmed by repeat testing. The classification and Diagnosis of Diabetes Diabetes Care 2021; 46: S19-S40. Current interpretive data was last revised 2022. Calcium 9.0 8.5 - 10.3 mg/dL [facility] Phosphorus, pl 3.7 2.3 - 4.5 mg/dL [facility] Albumin 3.9 3.5 - 5.0 g/dL [facility] Blood 09/24/2024 7:50 AM PALLET ASSEMBLER 09/24/2024 8:09 AM PALLET ASSEMBLER us Mitchell Grajeda MD LAB BLOOD ORDERABLES Final R esult [facility] [address] [place] [address] * (ABNORMAL) Drugs of Abuse Screen, Urine without Confirmation (09/23/2024 6:26 PM PALLET ASSEMBLER) [facility] Amphetamine, ur Not Detected CutOff 500ng/mL Comment: Interpretive Data - Amphetamines: ??Samples containing greater than 500 ng/mL d-methamphetamine ??or other cross-reacting amphetamine compounds are reported as positive. ??Amphetamine immunoassays are subject to significant false positive rates due to cross-reactivity of non-amphetamine drugs. Confirmatory testing required for definitive results. Current Interpretive Data was last reviewed 2023. Barbiturates, ur Not Detected CutOff 200ng/mL [facility] Comment: Interpretive Data - Barbiturates: ??Samples containing greater than 200 ng/mL secobarbital or other cross-reacting barbiturate compounds are reported as positive. ??False positive and false negative results are possible. Confirmatory testing required for definitive results. Current Interpretive Data was last reviewed 2023. Benzodiazepines, ur Screen Positive, presumptive (A) CutOff 100ng/mL [facility] Comment: Interpretive Data - Benzodiazepines: ??Samples containing greater than 100 ng/mL nordiazepam or other cross-reacting compounds are reported as positive. False positive and false negative results are possible. Confirmatory testing required for definitive results. Current Interpretive Data was last reviewed 2023. Cannabinoids, ur Not Detected CutOff 50 ng/mL [facility] Comment: Interpretive Data - Cannabinoids: ??Samples containing greater than 50 ng/mL delta-9 THC -COOH or other cross-reacting compounds are reported as positive. ??False positive and false negative results are possible. ??Confirmatory testing required for definitive results. Current Interpretive Data was last reviewed 2023. Cocaine, ur Not Detected CutOff 150ng/mL [facility] Comment: Interpretive Data - Cocaine: ??Samples containing greater than 150 ng/mL benzoylecgonine or other cross-reacting compounds are reported as positive. False positive and false negative results are possible. Confirmatory testing required for definitive results. Current Interpretive Data was last reviewed 2023. Fentanyl, Ur Not Detected CutOff 5 ng/mL [facility] Comment: Interpretive Data - Fentanyl: ?? Samples containing greater than 5 ng/mL norfentanyl, fentanyl, or other cross-reacting fentanyl compounds are reported as positive. False positive and false negative results are possible. Confirmatory testing required for definitive results. Current Interpretive Data was last reviewed 2023. Methadone, ur Not Detected CutOff 300ng/mL [facility] Comment: Interpretive Data - Methadone: ??Samples containing greater than 300 ng/mL d,l-methadone or other cross-reacting compounds are reported as positive. ??False positive and false negative results are possible. Confirmatory testing required for definitive results. Current Interpretive Data was last reviewed 2023. Opiates, ur Not Detected CutOff 300ng/mL [facility] Comment: Interpretive Data - Opiates: ??Samples containing greater than 300 ng/mL morphine or other cross-reacting compounds are reported as positive. ??False positive and false negative results are possible. Confirmatory testing required for definitive results. Current Interpretive Data was last reviewed 2023. Oxycodone, ur Screen Positive, presumptive (A) CutOff 100ng/mL [facility] Comment: Interpretive Data - Oxycodone: ??Samples containing greater than 100 ng/mL oxycodone or other cross-reacting compounds are reported as ??positive. ??False positive and false negative results are possible. Confirmatory testing required for definitive results. Current Interpretive Data was last reviewed 2023. Phencyclidine, ur Not Detected CutOff 25 ng/mL [facility] Comment: Interpretive Data - Phencyclidine: ??Samples containing greater than 25 ng/mL phencyclidine or other cross-reacting compounds are reported as positive. ??False positive and false negative results are possible. Confirmatory testing required for definitive results. Current Interpretive Data was last reviewed 2023. Urine Creatinine 87 mg/dL [facility] Comment: Interpretive Data Urine Creatinine: < 10 mg/dL is extremely dilute = or > 10 but < 20 mg/dL is dilute = or > 20 mg/dL is normal Current Interpretive Data was last revised on 2017. Urine 09/23/2024 6:26 PM PALLET ASSEMBLER 09/23/2024 6:33 PM PALLET ASSEMBLER Narrative [facility] - 09/23/2024 7:11 PM PALLET ASSEMBLER Drug of Abuse screening is performed by immunoassay for medical purposes only. ??This is not to be used for Pain Management purposes. us Jovany Stubbs MD LAB URINE ORDERABLES Final Result [facility] [address] Department [place] [address] * eGFR (09/23/2024 6:17 AM PALLET ASSEMBLER) eGFR >90 >=60 mL/min/1. 73 m2 Comment: Interpretive Data Reference Interval Normal ?>/= 90 mL/min/1.73m2 Mildly decreased* ? 60 - 89 mL/min/1.73m2 Mildly to moderately decreased ?45 - 59 mL/min/1.73m2 Moderately to severely decreased ??30 - 44 mL/min/1.73m2 Severely decreased ?15 - 29 mL/min/1.73m2 Kidney Failure ?< 15 ??mL/min/1.73m2 *Relative to young adult level Estimated glomerular filtration rate is determined by the 2020 CKD-EPI equation recommended by the National Kidney Foundation (A Unifying Approach to GFR Estimation: Recommendations of the NKF-ASK Task Force on Reassessing the Inclusion of Race in Diagnosing Kidney Disease, JASN 2020). The CKD-EPI equation should not be used for patients with unstable renal function and has not been validated in children and those over 70. Current interpretive data was last reviewed 2021. Blood 09/23/2024 6:17 AM PALLET ASSEMBLER 09/23/2024 6:34 AM PALLET ASSEMBLER us Mitchell Grajeda MD LAB BLOOD ORDERABLES Final R esult [facility] [address] [place] [address] * (ABNORMAL) CBC without differential (09/23/2024 6:17 AM PALLET ASSEMBLER) WBC 8.7 3.8 - 9.9 K/cumm Hgb 12.7(L) 13.0 - 17.5 g/dL [facility] Hct 39.6 38.9 - 50.3 % [facility] Plt 244 150 - 400 K/cumm [facility] MPV 10.9 9.1 - 12.3 fL [facility] RBC 4.30 4.30 - 5.80 M/cumm [facility] MCV 92.1 81.3 - 96.4 fL [facility] MCH 29.5 27.1 - 33.3 pg [facility] MCHC 32.1(L) 32.3 - 35.7 g/dL [facility] RDW CV 13.0 11.1 - 14.9 % [facility] RDW SD 43.8 35.7 - 48.1 fL [facility] NRBC abs 0.00 0.00 - 0.01 K/cumm [facility] Blood 09/23/2024 6:17 AM PALLET ASSEMBLER 09/23/2024 6:34 AM PALLET ASSEMBLER us Kevin Brody MD LAB BLOOD ORDERABLES Suzie l Result [facility] [address] Department [place] [address] * (ABNORMAL) Renal function panel (09/23/2024 6:17 AM PALLET ASSEMBLER) Sodium 141 135 - 145 mmol/L Potassium, pl 4.1 3.3 - 4.9 mmol/L [facility] Chloride 100 97 - 110 mmol/L [facility] CO2 30 22 - 32 mmol/L [facility] Anion gap 11 2 - 15 mmol/L [facility] BUN 10 6 - 25 mg/dL [facility] Creatinine 0.72(L) 0.80 - 1.30 mg/dL [facility] Glucose 95 70 - 199 mg/dL [facility] Comment: Interpretive Data Fasting glucose >/= 126 mg/dl is diagnostic for diabetes. ?? Fasting is defined as no caloric intake for at least 8 hours. Fasting glucose between 100 mg/dl to 125 mg/dl is diagnostic of prediabetes. In a patient with classic symptoms of hyperglycemia or hyperglycemic crisis, a random glucose >/= 200 mg/dl is diagnostic for diabetes. In the absence of unequivocal hyperglycemia, results should be confirmed by repeat testing. The classification and Diagnosis of Diabetes Diabetes Care 202; 46: S19-S40. Current interpretive data was last revised 2022. Calcium 8.7 8.5 - 10.3 mg/dL [facility] Phosphorus, pl 3.9 2.3 - 4.5 mg/dL [facility] Albumin 3.5 3.5 - 5.0 g/dL [facility] Blood 09/23/2024 6:17 AM PALLET ASSEMBLER 09/23/2024 6:34 AM PALLET ASSEMBLER us Mitchell Grajeda MD LAB BLOOD ORDERABLES Final R esult [facility] [address] [place] [address] * X-ray chest 1 view (Portable) (09/22/2024 12:05 PM PALLET ASSEMBLER) Anatomical Region Laterality Modality Body, Chest N/A Computed Radiogr aphy 09/22/2024 12:4 0 PM PALLET ASSEMBLER Impressions 09/22/2024 12:40 PM PALLET ASSEMBLER Left upper extremity PICC tip in the mid SVC. Electronically signed by: Akil Cerda D.O. Narrative 09/22/2024 12:40 PM PALLET ASSEMBLER EXAMINATION: XR CHEST 1 VIEW HISTORY: check line placement COMPARISON: Radiograph 03/30/2024 FINDINGS: Left upper extremity PICC tip in the mid SVC. ??Normal cardiomediastinal silhouette and pulmonary vasculature. ??No focal airspace opacity. ??No pneumothorax or large pleural effusion. ??No acute osseous abnormality. Procedure Note Akil Cerda, DO - 09/22/2024 EXAMINATION: XR CHEST 1 VIEW HISTORY: check line placement COMPARISON: Radiograph 03/30/2024 FINDINGS: Left upper extremity PICC tip in the mid SVC. Normal cardiomediastinal silhouette and pulmonary vasculature. No focal airspace opacity. No pneumothorax or large pleural effusion. No acute osseous abnormality. IMPRESSION: Left upper extremity PICC tip in the mid SVC. Electronically signed by: Akil O'Malcolm, D.O. us Sue TAYLOR IMG XR PROCEDURES Fi nal Result * LA INSJ NON-TUNNELED CENTRAL VENOUS CATH AGE 5 YR/> (09/22/2024 11:15 AM PALLET ASSEMBLER) Narrative Sue Steinberg PA - 09/22/2024 11:15 AM PALLET ASSEMBLER Sue Steinberg PA ? 09/22/2024 11:46 AM PICC Line Insertion Date/Time: 09/22/2024 11:15 AM Performed by: Sue Steinberg PA Authorized by: Sue Steinberg PA ?? [place] Protocol: RN Notified of Procedure: yes ?? Informed consent: ??Risks, benefits, alternatives discussed and patient/risk control field representative/guardian agrees and accepts Patient's stated name/ matches armband: ??Yes Allergies confirmed: yes ?? Consent form signed, dated, timed; matches correct patient, intended procedure and site: ??Yes Imaging: ??Pertinent imaging reviewed, correctly oriented and match to patient identifiers Supplies, devices and special equipment are available: yes ?? Site/side marked: yes Immediately prior to the procedure a time out was called: a verbal verification by the procedure participants confirmed correct patient identity, correct site/side marked and visible (if applicable); agreement on procedure to be done; and correct patient positioning ?? Indications: ??Vascular access (dx: post op SSI with abscess.) Anesthesia (see MAR for exact dosage) Anesthesia method: ??Local infiltration Local anesthetic: ??Lidocaine 1% Patient position: ??Flat Skin preparation: ??Skin prepped with 2% chlorhexidine Provider preparation: ??Cap, partial body drape, mask, handwashing, gown and gloves Location: LUE brachial vein. Ultrasound guidance: ??Sterile probe cover used, pre-procedure diagnostic and real-time needle guidance Assessment: ??Blood return through all ports, free fluid flow and placement verified by x-ray Catheter type: ??Double lumen Catheter placed through introducer: ??Transvenous (yes) Catheter size: ??5 Fr Needle inserted, vein idenitified then guidewire inserted easily into vein: Yes ?? Number of attempts: ??1 Successful placement: Yes ?? Catheter secured at (cm): ??0 Catheter length (cm): ??44 Line securement: ??Securement device and dressing applied Patient tolerance: ??Patient tolerated the procedure well with no immediate complications Post Procedure Debrief: All guidewires, needles, sponges or other items are accounted for: yes ?? us Sue TAYLOR IN CLINIC/BEDSIDE OR DERABLES Final Result * eGFR (09/22/2024 8:12 AM PALLET ASSEMBLER) eGFR >90 >=60 mL/min/1. 73 m2 Comment: Interpretive Data Reference Interval Normal ?>/= 90 mL/min/1.73m2 Mildly decreased* ? 60 - 89 mL/min/1.73m2 Mildly to moderately decreased ?45 - 59 mL/min/1.73m2 Moderately to severely decreased ??30 - 44 mL/min/1.73m2 Severely decreased ?15 - 29 mL/min/1.73m2 Kidney Failure ?< 15 ??mL/min/1.73m2 *Relative to young adult level Estimated glomerular filtration rate is determined by the 2020 CKD-EPI equation recommended by the National Kidney Foundation (A Unifying Approach to GFR Estimation: Recommendations of the NKF-ASK Task Force on Reassessing the Inclusion of Race in Diagnosing Kidney Disease, JASN 2020). The CKD-EPI equation should not be used for patients with unstable renal function and has not been validated in children and those over 70. Current interpretive data was last reviewed 2021. Blood 09/22/2024 8:12 AM PALLET ASSEMBLER 09/22/2024 8:51 AM PALLET ASSEMBLER us Mitchell Grajeda MD LAB BLOOD ORDERABLES Final R esult [facility] [address] [place] [address] * CBC without differential (09/22/2024 8:12 AM PALLET ASSEMBLER) [facility] WBC 8.5 3.8 - 9.9 K/cumm Hgb 13.6 13.0 - 17.5 g/dL [facility] Hct 41.9 38.9 - 50.3 % [facility] Plt 241 150 - 400 K/cumm [facility] MPV 11.4 9.1 - 12.3 fL [facility] RBC 4.59 4.30 - 5.80 M/cumm [facility] MCV 91.3 81.3 - 96.4 fL [facility] MCH 29.6 27.1 - 33.3 pg [facility] MCHC 32.5 32.3 - 35.7 g/dL [facility] RDW CV 13.0 11.1 - 14.9 % [facility] RDW SD 43.8 35.7 - 48.1 fL [facility] NRBC abs 0.00 0.00 - 0.01 K/cumm [facility] Blood 09/22/2024 8:12 AM PALLET ASSEMBLER 09/22/2024 8:52 AM PALLET ASSEMBLER Kevin Brody MD LAB BLOOD ORDERABLES Suzie gutierrez Result [facility] [address] Department [place] [address] * (ABNORMAL) Renal function panel (09/22/2024 8:12 AM PALLET ASSEMBLER) [facility] Sodium 143 135 - 145 mmol/L Potassium, pl 3.7 3.3 - 4.9 mmol/L [facility] Chloride 100 97 - 110 mmol/L [facility] CO2 31 22 - 32 mmol/L [facility] Anion gap 12 2 - 15 mmol/L [facility] BUN 9 6 - 25 mg/dL [facility] Creatinine 0.77(L) 0.80 - 1.30 mg/dL [facility] Glucose 144 70 - 199 mg/dL [facility] Comment: Interpretive Data Fasting glucose >/= 126 mg/dl is diagnostic for diabetes. ?? Fasting is defined as no caloric intake for at least 8 hours. Fasting glucose between 100 mg/dl to 125 mg/dl is diagnostic of prediabetes. In a patient with classic symptoms of hyperglycemia or hyperglycemic crisis, a random glucose >/= 200 mg/dl is diagnostic for diabetes. In the absence of unequivocal hyperglycemia, results should be confirmed by repeat testing. The classification and Diagnosis of Diabetes Diabetes Care 202; 46: S19-S40. Current interpretive data was last revised 2022. Calcium 9.3 8.5 - 10.3 mg/dL [facility] Phosphorus, pl 4.6(H) 2.3 - 4.5 mg/dL [facility] Albumin 4.1 3.5 - 5.0 g/dL [facility] Blood 09/22/2024 8:12 AM PALLET ASSEMBLER 09/22/2024 8:51 AM PALLET ASSEMBLER us Mitchell Grajeda MD LAB BLOOD ORDERABLES Final R esult [facility] [address] Department [place] [address] * eGFR (09/21/2024 6:09 AM PALLET ASSEMBLER) eGFR >90 >=60 mL/min/1. 73 m2 Comment: Interpretive Data Reference Interval Normal ?>/= 90 mL/min/1.73m2 Mildly decreased* ? 60 - 89 mL/min/1.73m2 Mildly to moderately decreased ?45 - 59 mL/min/1.73m2 Moderately to severely decreased ??30 - 44 mL/min/1.73m2 Severely decreased ?15 - 29 mL/min/1.73m2 Kidney Failure ?< 15 ??mL/min/1.73m2 *Relative to young adult level Estimated glomerular filtration rate is determined by the 2020 CKD-EPI equation recommended by the National Kidney Foundation (A Unifying Approach to GFR Estimation: Recommendations of the NKF-ASK Task Force on Reassessing the Inclusion of Race in Diagnosing Kidney Disease, JASN 2020). The CKD-EPI equation should not be used for patients with unstable renal function and has not been validated in children and those over 70. Current interpretive data was last reviewed 2021. Blood 09/21/2024 6:09 AM PALLET ASSEMBLER 09/21/2024 7:01 AM PALLET ASSEMBLER us Mitchell Grajeda MD LAB BLOOD ORDERABLES Final R esult [facility] [address] Department [place] [address] * (ABNORMAL) CBC without differential (09/21/2024 6:09 AM PALLET ASSEMBLER) WBC 8.8 3.8 - 9.9 K/cumm Hgb 11.7(L) 13.0 - 17.5 g/dL [facility] Hct 36.0(L) 38.9 - 50.3 % [facility] Plt 162 150 - 400 K/cumm [facility] MPV 12.0 9.1 - 12.3 fL [facility] RBC 3.93(L) 4.30 - 5.80 M/cumm [facility] MCV 91.6 81.3 - 96.4 fL [facility] MCH 29.8 27.1 - 33.3 pg [facility] MCHC 32.5 32.3 - 35.7 g/dL [facility] RDW CV 13.0 11.1 - 14.9 % [facility] RDW SD 44.1 35.7 - 48.1 fL [facility] NRBC abs 0.00 0.00 - 0.01 K/cumm [facility] Blood 09/21/2024 6:09 AM PALLET ASSEMBLER 09/21/2024 7:01 AM PALLET ASSEMBLER us Kevin Brody MD LAB BLOOD ORDERABLES Suzie l Result Performing Organization Address City/[facility]/ZIP Co de Phone Number [facility] [address] [place] [place] [address] * (ABNORMAL) Renal function panel (09/21/2024 6:09 AM PALLET ASSEMBLER) [facility] Sodium 143 135 - 145 mmol/L Potassium, pl 3.5 3.3 - 4.9 mmol/L [facility] Chloride 105 97 - 110 mmol/L [facility] CO2 26 22 - 32 mmol/L [facility] Anion gap 12 2 - 15 mmol/L [facility] BUN 10 6 - 25 mg/dL [facility] Creatinine 0.70(L) 0.80 - 1.30 mg/dL [facility] Glucose 102 70 - 199 mg/dL [facility] Comment: Interpretive Data Fasting glucose >/= 126 mg/dl is diagnostic for diabetes. ?? Fasting is defined as no caloric intake for at least 8 hours. Fasting glucose between 100 mg/dl to 125 mg/dl is diagnostic of prediabetes. In a patient with classic symptoms of hyperglycemia or hyperglycemic crisis, a random glucose >/= 200 mg/dl is diagnostic for diabetes. In the absence of unequivocal hyperglycemia, results should be confirmed by repeat testing. The classification and Diagnosis of Diabetes Diabetes Care 202; 46: S19-S40. Current interpretive data was last revised 2022. Calcium 8.6 8.5 - 10.3 mg/dL [facility] Phosphorus, pl 3.6 2.3 - 4.5 mg/dL [facility] Albumin 3.3(L) 3.5 - 5.0 g/dL [facility] Blood 09/21/2024 6:0 9 AM PALLET ASSEMBLER 09/21/2024 7:01 AM PALLET ASSEMBLER us Mitchell Grajeda MD LAB BLOOD ORDERABLES Final R esult Performing Organization Address [facility]/ZIP Co de Phone Number [facility] [address] Department [employer] [place] [address] * (ABNORMAL) Vancomycin level trough Please draw trough at this specific time. (09/20/2024 5:36 PM PALLET ASSEMBLER) Pathologist [facility] Vancomycin trough 7.4(L) 10.0 - 20.0 mcg/mL Blood 09/20/2024 5:36 PM PALLET ASSEMBLER 09/20/2024 5:40 PM PALLET ASSEMBLER Narrative [facility] - 09/20/2024 6:00 PM PALLET ASSEMBLER Please draw trough at this specific time. us Mitchell Grajeda MD LAB BLOOD ORDERABLES Final R esult Performing Organization Address City/[facility]/ZIP Co de Phone Number [facility] [address] [place] [address] * (ABNORMAL) CBC without differential (09/20/2024 5:58 AM PALLET ASSEMBLER) [facility] WBC 17.4(H) 3.8 - 9.9 K/cumm Hgb 12.8(L) 13.0 - 17.5 g/dL [facility] Hct 40.4 38.9 - 50.3 % [facility] Plt 174 150 - 400 K/cumm [facility] MPV 12.4(H) 9.1 - 12.3 fL [facility] RBC 4.37 4.30 - 5.80 M/cumm [facility] MCV 92.4 81.3 - 96.4 fL [facility] MCH 29.3 27.1 - 33.3 pg [facility] MCHC 31.7(L) 32.3 - 35.7 g/dL [facility] RDW CV 12.9 11.1 - 14.9 % [facility] RDW SD 44.1 35.7 - 48.1 fL [facility] NRBC abs 0.00 0.00 - 0.01 K/cumm [facility] Blood 09/20/2024 5:58 AM PALLET ASSEMBLER 09/20/2024 6:35 AM PALLET ASSEMBLER us Kevin Brody MD LAB BLOOD ORDERABLES Suzie l Result [facility] [address] Department [place] [address] * (ABNORMAL) Tissue aerobic and anaerobic culture and gram stain Tissue Back, lower (09/19/2024 11:08AM PALLET ASSEMBLER) Direct Specimen Exam Stain: No polymorphonuclear leukocytes seen. No organisms seen. Report Final Report: Very light growth Staphylococcus aureus, methicillin susceptible (.) [facility] Organism STAPHYLOCOCCUS AUREUS, METHICILLIN SUSCEPTIBLE [facility] Tissue (Back, lower) 09/19/2024 11:08 AM PALLET ASSEMBLER 09/19/2024 12:11 PM PALLET ASSEMBLER [facility]ative [facility] 09/22/2024 9:51 AM PALLET ASSEMBLER Deep Tissue Organism Antibiotic Method Susceptibility Staphylococcus aureus, methicillin susceptible Cefazolin (SHILOH) INTERPRETATION Susceptible Staphylococcus aureus, methicillin susceptible Clindamycin (SHILOH) INTERPRETATION Susceptible Staphylococcus aureus, methicillin susceptible Erythromycin (SHILOH) INTERPRETATION Susceptible Staphylococcus aureus, methicillin susceptible Oxacillin (SHILOH) INTERPRETATION Susceptible Staphylococcus aureus, methicillin susceptible Tetracycline (SHILOH) INTERPRETATION Susceptible Staphylococcus aureus, methicillin susceptible Trimethoprim with Sulfamethoxazole (SHILOH) INTERPRETATION Susceptible Staphylococcus aureus, methicillin susceptible Vancomycin (SHILOH) INTERPRETATION 1 mcg/mL: Susceptible Kevin Brody MD LAB MICROBIOLOGY - GENERA L ORDERABLES Final Result Performing Organization Address [facility] Co de Phone Number [facility] [address] Department [place] [address] * (ABNORMAL) Aerobic and anaerobic culture and gram stain Abscess Back, lower (09/19/2024 11:07 AM PALLET ASSEMBLER) Direct Specimen Exam Stain: No polymorphonuclear leukocytes seen. No organisms seen. Report Final Report: Light growth of: Staphylococcus aureus, methicillin susceptible Susceptibility reported on this organism on previous culture [id number] (.) [facility] Organism STAPHYLOCOCCUS AUREUS, METHICILLIN SUSCEPTIBLE [facility] Abscess (Back, lower) 09/19/2024 11:07 AM PALLET ASSEMBLER 09/19/2024 12:25 PM PALLET ASSEMBLER Narrative [facility] - 09/23/2024 8:55 AM PALLET ASSEMBLER Deep Kevin Brody MD LAB MICROBIOLOGY - GENERA L ORDERABLES Final Result Performing Organization Address [facility] Co de Phone Number [facility] [address] [place] [address] * (ABNORMAL) Aerobic and anaerobic culture and gram stain Abscess Back, lower (09/19/2024 11:07 AM PALLET ASSEMBLER) Direct Specimen Exam Stain: Few polymorphonuclear leukocytes seen. Rare Gram Positive Cocci Report Final Report: Moderate growth of: Staphylococcus aureus, methicillin susceptible (.) [facility] Organism STAPHYLOCOCCUS AUREUS, METHICILLIN SUSCEPTIBLE [facility] Abscess (Back, lower) 09/19/2024 11:07 AM PALLET ASSEMBLER 09/19/2024 12:25 PM PALLET ASSEMBLER Narrative [facility] - 09/23/2024 8:49 AM PALLET ASSEMBLER Superficial Organism Antibiotic Method Susceptibility Staphylococcus aureus, methicillin susceptible Cefazolin (SHILOH) INTERPRETATION Susceptible Staphylococcus aureus, methicillin susceptible Clindamycin (SHILOH) INTERPRETATION Susceptible Staphylococcus aureus, methicillin susceptible Erythromycin (SHILOH) INTERPRETATION Susceptible Staphylococcus aureus, methicillin susceptible Oxacillin (SHILOH) INTERPRETATION Susceptible Staphylococcus aureus, methicillin susceptible Tetracycline (SHILOH) INTERPRETATION Susceptible Staphylococcus aureus, methicillin susceptible Trimethoprim with Sulfamethoxazole (SHILOH) INTERPRETATION Susceptible Staphylococcus aureus, methicillin susceptible Vancomycin (SHILOH) INTERPRETATION 1 mcg/mL: Susceptible Kevin Brody MD LAB MICROBIOLOGY - GENERA L ORDERABLES Final Result Performing Organization Address [facility] Co de Phone Number [facility] [address] [place] [address] * LA AN ELECTIVE ENDOTRACHEAL AIRWAY, LA AN PROCEDURE PLACEHOLDER (09/19/2024 10:49 AM PALLET ASSEMBLER) Narrative Sonia David CRNA - 09/19/2024 10:49 AM PALLET ASSEMBLER Sonia David CRNA ? 09/19/2024 10:50 AM Airway Patient location: OR Urgency: elective Indications for airway management: anesthesia Difficult airway: no Staff: Placed by: MEDICAL COMMUNICATION SPECIALIST: Sonia David CRNA Emergent airway documentation: Risks and benefits discussed: yes Consent obtained: yes Consent given by: patient Airway prep: Preoxygenated: yes Patient position: sniffing Mask difficulty assessment: 1 - vent by mask Sedation level during airway: GA Final airway details: Final airway type: endotracheal airway Tube type: ETT ETT size: 8.0 mm Cuffed: yes Technique used for successful ETT placement: video laryngoscopy Devices/Methods used in placement: stylet Insertion site: oral Blade type: Palomo Video blade type: Galvan Blade size: 4 Cormack-Lehane (video): grade I - full view of glottis Cuff volume: 10 mL Cuff inflated with: air ETT to lips: 22 cm Placement verified by: auscultation and CO2 detection Airway secured with: silk tape Number of attempts: 1 Stephenie Rodriguez DO ANESTHESIA ORDERABLES Final Result * (ABNORMAL) Differential, auto (09/19/2024 1:19 AM PALLET ASSEMBLER) Pathologist [facility] Neutrophil abs 13.1(H) 1.5 - 6.5 K/cumm Imm gran abs 0.1 0.0 - 0.1 K/cumm [facility] Lymphocyte abs 1.3 0.8 - 3.3 K/cumm [facility] Monocyte abs 1.3(H) 0.2 - 0.8 K/cumm [facility] Eosinophil abs 0.0 0.0 - 0.5 K/cumm [facility] Basophil abs 0.0 0.0 - 0.1 K/cumm [facility] Neutrophil pct 83.0 % [facility] Comment: Interpretive Data Percent cell count reference ranges are not reported, since discordance with absolute values may lead to misinterpretation of CBC data. Current Interpretive Data was last revised on 2018. Imm gran pct 0.5 % [facility] Comment: Interpretive Data Percent cell count reference ranges are not reported, since discordance with absolute values may lead to misinterpretation of CBC data. Current Interpretive Data was last revised on 2018. Lymphocyte pct 8.0 % [facility] Comment: Interpretive Data Percent cell count reference ranges are not reported, since discordance with absolute values may lead to misinterpretation of CBC data. Current Interpretive Data was last revised on 2018. Monocyte pct 8.3 % [facility] Comment: Interpretive Data Percent cell count reference ranges are not reported, since discordance with absolute values may lead to misinterpretation of CBC data. Current Interpretive Data was last revised on 2018. Eosinophil pct 0.1 % [facility] Comment: Interpretive Data Percent cell count reference ranges are not reported, since discordance with absolute values may lead to misinterpretation of CBC data. Current Interpretive Data was last revised on 2018. Basophil pct 0.1 % [facility] Comment: Interpretive Data Percent cell count reference ranges are not reported, since discordance with absolute values may lead to misinterpretation of CBC data. Current Interpretive Data was last revised on 2018. Blood 09/19/2024 1:19 AM PALLET ASSEMBLER 09/19/2024 1:19 AM PALLET ASSEMBLER us Kita Astudillo MD LAB BLOOD ORDERABLES Final Resu lt [facility] [address] [place] [address] * (ABNORMAL) CBC with auto differential (09/19/2024 1:19 AM PALLET ASSEMBLER) WBC 15.8(H) 3.8 - 9.9 K/cumm Hgb 13.0 13.0 - 17.5 g/dL [facility] Hct 39.4 38.9 - 50.3 % [facility] Plt 150 150 - 400 K/cumm [facility] MPV 12.1 9.1 - 12.3 fL [facility] RBC 4.38 4.30 - 5.80 M/cumm [facility] MCV 90.0 81.3 - 96.4 fL [facility] MCH 29.7 27.1 - 33.3 pg [facility] MCHC 33.0 32.3 - 35.7 g/dL [facility] RDW CV 12.7 11.1 - 14.9 % [facility] RDW SD 42.4 35.7 - 48.1 fL [facility] NRBC abs 0.00 0.00 - 0.01 K/cumm [facility] Blood 09/19/2024 1:19 AM PALLET ASSEMBLER 09/19/2024 1:19 AM PALLET ASSEMBLER us Kita Astudillo MD LAB BLOOD ORDERABLES Final Resu lt Performing Organization Address [facility] Co de Phone Number [facility] [address] [place] [address] * eGFR (09/19/2024 12:55 AM PALLET ASSEMBLER) eGFR >90 >=60 mL/min/1. 73 m2 Comment: Interpretive Data Reference Interval Normal ?>/= 90 mL/min/1.73m2 Mildly decreased* ? 60 - 89 mL/min/1.73m2 Mildly to moderately decreased ?45 - 59 mL/min/1.73m2 Moderately to severely decreased ??30 - 44 mL/min/1.73m2 Severely decreased ?15 - 29 mL/min/1.73m2 Kidney Failure ?< 15 ??mL/min/1.73m2 *Relative to young adult level Estimated glomerular filtration rate is determined by the 2020 CKD-EPI equation recommended by the National Kidney Foundation (A Unifying Approach to GFR Estimation: Recommendations of the NKF-ASK Task Force on Reassessing the Inclusion of Race in Diagnosing Kidney Disease, JASN 2020). The CKD-EPI equation should not be used for patients with unstable renal function and has not been validated in children and those over 70. Current interpretive data was last reviewed 2021. Blood 09/19/2024 12:5 5 AM PALLET ASSEMBLER 09/19/2024 1:19 AM PALLET ASSEMBLER us Kita Astudillo MD LAB BLOOD ORDERABLES Final Resu lt Performing Organization Address [facility] Co de Phone Number [facility] [address] [place] [address] * Blood culture Blood (09/19/2024 12:55 AM PALLET ASSEMBLER) Report Final Report: No growth Blood 09/19/2024 12:5 5 AM PALLET ASSEMBLER 09/19/2024 2:14 AM PALLET ASSEMBLER Narrative [facility] - 09/24/2024 7:01 AM PALLET ASSEMBLER From a different site than #1. Collection->Peripheral Interpretive Data 1. Blood cultures are incubated and monitored continuously for 5 days (120 hours). The first negative report is issued within 24 hours of receipt in the laboratory. 2. All positive cultures are resulted and called to physicians/care providers as soon as they are detected. 3. A rapid molecular test for organism identification may be performed using the CardiaLen Blood Culture Identification panel. This assay detects microbial DNA in a blood culture broth. This assay has been cleared by the [place] Food and Drug Administration and its performance characteristics have been verified by the [facility] Microbiology Laboratory. Interpretive data was last revised on October 27, 2022. Kita Astudillo MD LAB MICROBIOLOGY - [facility] Final Result Performing Organization Address [facility] Co de Phone Number [facility] [address] [place] [address] * Blood culture Blood (09/19/2024 12:55 AM PALLET ASSEMBLER) Report Final Report: No growth Blood 09/19/2024 12:5 5 AM PALLET ASSEMBLER 09/19/2024 2:14 AM PALLET ASSEMBLER Narrative [facility] - 09/24/2024 7:01 AM PALLET ASSEMBLER Collection->Peripheral Interpretive Data 1. Blood cultures are incubated and monitored continuously for 5 days (120 hours). The first negative report is issued within 24 hours of receipt in the laboratory. 2. All positive cultures are resulted and called to physicians/care providers as soon as they are detected. 3. A rapid molecular test for organism identification may be performed using the CardiaLen Blood Culture Identification panel. This assay detects microbial DNA in a blood culture broth. This assay has been cleared by the [place] Food and Drug Administration and its performance characteristics have been verified by the [facility]. Interpretive data was last revised on October 27, 2022. Kita Astudillo MD LAB MICROBIOLOGY - GENERAL ORDTay NEGRON Final Result [facility] [address] [place] [address] * (ABNORMAL) Comprehensive metabolic panel (09/19/2024 12:55 AM PALLET ASSEMBLER) Sodium 136 135 - 145 mmol/L Potassium, pl 4.1 3.3 - 4.9 mmol/L [facility] Comment:Hemolyzed; potassium value may be falsely elevated by as much as 0.3 - 0.5 mmol/L. Suggest redraw and reanalysis Chloride 98 97 - 110 mmol/L [facility] CO2 26 22 - 32 mmol/L [facility] Anion gap 12 2 - 15 mmol/L [facility] BUN 8 6 - 25 mg/dL [facility] Creatinine 0.70(L) 0.80 - 1.30 mg/dL [facility] Glucose 139 70 - 199 mg/dL [facility] Comment: Interpretive Data Fasting glucose >/= 126 mg/dl is diagnostic for diabetes. ?? Fasting is defined as no caloric intake for at least 8 hours. Fasting glucose between 100 mg/dl to 125 mg/dl is diagnostic of prediabetes. In a patient with classic symptoms of hyperglycemia or hyperglycemic crisis, a random glucose >/= 200 mg/dl is diagnostic for diabetes. In the absence of unequivocal hyperglycemia, results should be confirmed by repeat testing. The classification and Diagnosis of Diabetes Diabetes Care 202; 46: S19-S40. Current interpretive data was last revised 2022. Calcium 9.1 8.5 - 10.3 mg/dL [facility] Bilirubin, total 0.9 0.1 - 1.2 mg/dL [facility] Protein, pl 6.7 6.5 - 8.5 g/dL [facility] Albumin 3.7 3.5 - 5.0 g/dL [facility] Alk phos 92 40 - 130 Units/L [facility] ALT 18 7 - 55 Units/L [facility] AST 22 10 - 50 Units/L [facility] Comment:Slightly Hemolyzed S pecimen Blood 09/19/2024 12:5 5 AM PALLET ASSEMBLER 09/19/2024 1:19 AM PALLET ASSEMBLER us Kita Astudillo MD LAB BLOOD ORDERABLES Final Resu lt Performing Organization Address [facility]/ZIP Co de Phone Number [facility] [address] [place] [address] * (ABNORMAL) CBC without differential (08/14/2024 7:13 AM PALLET ASSEMBLER) WBC 16.5(H) 3.8 - 9.9 K/cumm Hgb 14.5 13.0 - 17.5 g/dL [facility] Hct 43.7 38.9 - 50.3 % [facility] Plt 169 150 - 400 K/cumm [facility] MPV 12.0 9.1 - 12.3 fL [facility] RBC 4.87 4.30 - 5.80 M/cumm [facility] MCV 89.7 81.3 - 96.4 fL [facility] MCH 29.8 27.1 - 33.3 pg [facility] MCHC 33.2 32.3 - 35.7 g/dL [facility] RDW CV 13.3 11.1 - 14.9 % [facility] RDW SD 44.0 35.7 - 48.1 fL [facility] NRBC abs 0.00 0.00 - 0.01 K/cumm [facility] Blood 08/14/2024 7:13 AM PALLET ASSEMBLER 08/14/2024 7:51 AM PALLET ASSEMBLER us Kevin Brody MD LAB BLOOD ORDERABLES Suzie l Result Performing Organization Address [facility]/ZIP Co de Phone Number [facility] [address] [place] [address] * Surgical pathology (08/13/2024 11:16 AM PALLET ASSEMBLER) Disc, intervertebral 024 11:16 AM PALLET ASSEMBLER 08/13/2024 1:53 PM PALLET ASSEMBLER Narrative 08/14/2024 2:09 PM PALLET ASSEMBLER [address] ??[address] Tele: ?? Batsheva Ji MD - Bag Machine Adjuster Note to Patients: This report may contain a detailed description of human tissue sent by a health care provider to the laboratory for pathologic evaluation. The content of this report is essential for diagnosis and may provide important critical findings. This information may be unfamiliar to patients to review without a medical professional present. It is advised that the patient review this report in the presence of a health care provider who can answer questions and explain the details. SURGICAL PATHOLOGY REPORT Patient Name: ??TRAMAINE MARIN Araceli SCOTT Address: ??[address] [place] [address] ??[address] Gender: ??M : ??1970 (Age: 53) Service: ??Ortho Location: ??[place] [address], ?? Hospital #: ??[id number] Patient Type: ??[facility] OP IN BED Accession #: ? [id number] Taken: ? 08/13/2024 Received ? 08/13/2024 Reported: ? 08/14/2024 Physician(s): ? Kevin Brody M.D. Elton Higinio Jean Baptiste M.D. DIAGNOSIS: Intervertebral disc, L3-5, discectomy: ? - Disc material with degenerative changes 08/14/2024 14:09 Examining Pathologist: Asa Rodrigues M.D. Report Reviewed and Electronically Signed By ??Asa Rodrigues M.D. SPECIMEN TYPE: A: DISC MATERIAL CLINICAL IMPRESSION AND HISTORY: Pseudoclaudication syndrome GROSS DESCRIPTION: Received in formalin labeled with TRAMAINE MARIN and disc material are red- brown irregular tissue fragments measuring 3.9 x 3.5 x 0.6 cm in aggregate Bend Sorter sections are submitted in cassette labeled A1. ?? [facility] MICROSCOPIC DESCRIPTION: Microscopic examination supports the above captioned diagnosis. This case was signed out at [facility], [address] [place] [id number]. Clerical Data Follows A; [id number] REPORT IMAGES AND/OR SCANNED DOCUMENTS ONLY VIEWABLE IN PDF FORMAT The immunohistochemical test(s) cited in this report, if any, was developed and its performance characteristics determined by [facility] Pathology Department. ??It has not been cleared or approved by the U.S. Food and Drug Administration. ??The FDA has determined that such clearance or approval is not necessary. ??This test is used for clinical purposes. ??It should not be regarded as investigational or for research. ??[facility] is certified under the Clinical Laboratory Improvement Amendments of 1988 (CLIA) as qualified to perform high complexity testing. ??Immunostains were performed on formalin-fixed paraffin embedded tissue using a polymer diaminobenzidine chromogen detection system. Antibodies used may include clone SP1 (rabbit monoclonal, estrogen receptor), clone 1E2 (rabbit monoclonal progesterone receptor), Ki-67 (rabbit monoclonal, 30-9), CD117 (rabbit polyclonal, c-kit), and anti-Her-2/maria del rosario (4B5) (rabbit monoclonal primary antibody). ??In the event that immunohistochemistry or special stains have been performed, attending physician has confirmed appropriateness of controls. ??Frozen section, operating room consultation, gross examination and dissection, and case sign out may have been performed in part or completely in the following laboratories: [facility], [address] [place] [id number] [place] [address], [address] [place] [address]. us Kevin Brody MD LAB PATHOLOGY ORDERABLES Final Result * FL Fluoroscopy < 1 Hour (08/13/2024 11:08 AM PALLET ASSEMBLER) Narrative [facility] - 08/13/2024 11:09 AM PALLET ASSEMBLER The images from this study are not interpreted by Radiology. ??Please refer to the physician's procedure / OR operative note. Kevin Brody MD IM FLUOROSCOPY PROCEDURE S Final Result [facility] * XR Spine Lumbar 2 or 3 Views (08/13/2024 11:08 AM PALLET ASSEMBLER) Anatomical Region Laterality Modality Spine N/A Computed Radiogr aphy 08/13/2024 11:3 5 AM PALLET ASSEMBLER Impressions 08/13/2024 11:35 AM PALLET ASSEMBLER FINDINGS/IMPRESSION: 6 intraoperative fluoroscopic images are submitted for review. Fusion L4-L5 vertebral bodies. Postoperative changes of L3-L5 posterior fusion and decompression with L3-L4 interbody fusion device placement. Hardware is grossly intact. Please refer to the dedicated operative report for complete evaluation of real-time findings. Electronically signed by: Justus Toledo M.D. Narrative 08/13/2024 11:35 AM PALLET ASSEMBLER EXAM: XR SPINE LUMBAR 2 OR 3 [...] IMG XR PROCEDURES Final R esult * LA AN ELECTIVE ENDOTRACHEAL AIRWAY, LA AN PROCEDURE PLACEHOLDER (08/13/2024 7:59 AM PALLET ASSEMBLER) Narrative Naomi Galvan CRNA - 08/13/2024 7:59 AM PALLET ASSEMBLER Naomi Galvan CRNA ? 08/13/2024 ??8:01 AM Airway Patient location: OR Urgency: elective Indications for airway management: anesthesia Difficult airway: no Staff: Supervising provider: Jason Christianson MD Placed by: MEDICAL COMMUNICATION SPECIALIST: Naomi Galvan CRNA Emergent airway documentation: Risks and benefits discussed: yes Consent obtained: yes Consent given by: patient Airway prep: Preoxygenated: yes Patient position: sniffing Mask difficulty assessment: 2 - vent by mask + OA or adjuvant Sedation level during airway: GA Final airway details: Final airway type: endotracheal airway Tube type: ETT ETT size: 8.0 mm Cuffed: yes Technique used for successful ETT placement: video laryngoscopy Devices/Methods used in placement: stylet Insertion site: oral Blade type: Palomo Video blade type: Galvan Blade size: 3 Cormack-Lehane (video): grade I - full view of glottis Cuff volume: 10 mL Cuff inflated with: air ETT to teeth: 23 cm Placement verified by: auscultation and CO2 detection Airway secured with: silk tape Number of attempts: 1 us Jason Christianson MD ANESTHESIA ORDERABLES Final Result * Check Sample (08/13/2024 6:59 AM PALLET ASSEMBLER) ABO Rh O Positive MBC HCLL OTHER 08/13/2024 6:59 AM PALLET ASSEMBLER 08/13/2024 7:23 AM PALLET ASSEMBLER us Ara Robbins FISHING REEL ASSEMBLER LAB BLOOD ORDERABLES Fi nal Result [facility] [address] Department [place] [address] [facility] * POCT lipid panel (07/30/2024 10:33 AM PALLET ASSEMBLER) Cholesterol, POC 186 mg/dL HDL, POC 28 mg/dL Triglycerides, POC 215 mg/dL LDL Cholesterol POC 115 mg/dL Chol/HDL Ratio, POC 6.7 Non-HDL Cholesterol, POC 158 mg/dL Cholesterol Total, POC 186 mg/dL Capillary blood 07/30/2024 1 0:33 AM PALLET ASSEMBLER us Hunter Smith MD POINT OF CARE TEST ORDERABLES Fi nal Result * ECG 12 lead (07/30/2024 10:22 AM PALLET ASSEMBLER) us Hunter Smith MD ECG ORDERABLES Edited Result - Final * Differential, auto (07/23/2024 10:10 AM CDT) Pathologist [facility] Neutrophil abs 5.6 1.5 - 6.5 K/cumm Imm gran abs 0.0 0.0 - 0.1 K/cumm [facility] Lymphocyte abs 2.1 0.8 - 3.3 K/cumm [facility] Monocyte abs 0.7 0.2 - 0.8 K/cumm [facility] Eosinophil abs 0.2 0.0 - 0.5 K/cumm [facility] Basophil abs 0.0 0.0 - 0.1 K/cumm [facility] Neutrophil pct 64.7 % [facility] Comment: Interpretive Data Percent cell count reference ranges are not reported, since discordance with absolute values may lead to misinterpretation of CBC data. Current Interpretive Data was last revised on 2018. Imm gran pct 0.2 % [facility] Comment: Interpretive Data Percent cell count reference ranges are not reported, since discordance with absolute values may lead to misinterpretation of CBC data. Current Interpretive Data was last revised on 2018. Lymphocyte pct 24.8 % [facility] Comment: Interpretive Data Percent cell count reference ranges are not reported, since discordance with absolute values may lead to misinterpretation of CBC data. Current Interpretive Data was last revised on 2018. Monocyte pct 8.1 % [facility] Comment: Interpretive Data Percent cell count reference ranges are not reported, since discordance with absolute values may lead to misinterpretation of CBC data. Current Interpretive Data was last revised on 2018. Eosinophil pct 1.7 % [facility] Comment: Interpretive Data Percent cell count reference ranges are not reported, since discordance with absolute values may lead to misinterpretation of CBC data. Current Interpretive Data was last revised on 2018. Basophil pct 0.5 % [facility] Comment: Interpretive Data Percent cell count reference ranges are not reported, since discordance with absolute values may lead to misinterpretation of CBC data. Current Interpretive Data was last revised on 2018. Blood 07/23/2024 10:1 0 AM CDT 07/23/2024 10:10 AM CDT us Ara Robbins FISHING REEL ASSEMBLER LAB BLOOD ORDERABLES Fi nal Result [facility] [address] [place] [address] * CBC with auto differential (07/23/2024 10:10 AM CDT) WBC 8.6 3.8 - 9.9 K/cumm Hgb 15.7 13.0 - 17.5 g/dL [facility] Hct 47.5 38.9 - 50.3 % [facility] Plt 184 150 - 400 K/cumm [facility] MPV 11.6 9.1 - 12.3 fL [facility] RBC 5.27 4.30 - 5.80 M/cumm [facility] MCV 90.1 81.3 - 96.4 fL [facility] MCH 29.8 27.1 - 33.3 pg [facility] MCHC 33.1 32.3 - 35.7 g/dL [facility] RDW CV 12.9 11.1 - 14.9 % [facility] RDW SD 42.5 35.7 - 48.1 fL [facility] NRBC abs 0.00 0.00 - 0.01 K/cumm [facility] Blood 07/23/2024 10:1 0 AM CDT 07/23/2024 10:10 AM CDT Ara Robbins FISHING REEL ASSEMBLER LAB BLOOD ORDERABLES Fi nal Result Performing Organization Address [facility] Co de Phone Number [facility] [address] [facility] [place] [address] * Vitamin D 25 hydroxy (07/23/2024 10:10 AM CDT) Vitamin D 25-OH 38 30 - 80 ng/mL Blood 07/23/2024 10:1 0 AM CDT 07/23/2024 10:10 AM CDT Ara Robbins FISHING REEL ASSEMBLER LAB BLOOD ORDERABLES Fi nal Result Performing Organization Address [facility] de Phone Number [facility] [address] [place] [address] * (ABNORMAL) Hemoglobin A1c (07/23/2024 10:10 AM CDT) [facility] Hgb A1C 5.7(H) 4.0 - 5.6 % Estimated Average Glucose 117 mg/dL [facility] Comment: The ADA recommends reporting an estimated Average Glucose (eAG) with all Hemoglobin A1c results using the equation derived from a study of 507 normal and diabetic adults. ??Minority populations were underrepresented and children were not included. ?? (Diabetes Care 31:9552-6986, 2008). ??The eAG is not equivalent to a fasting glucose. Blood 07/23/2024 10:1 0 AM CDT 07/23/2024 10:10 AM CDT Ara Robbins NP LAB BLOOD ORDERABLES Fi nal Result Performing Organization Address [facility] Co de Phone Number [facility] [address] [facility] [place] [place], [place] [id number] * Type and screen (07/23/2024 9:54 AM CDT) Pathologist [facility] [place], indirect Negative ABO Rh O Positive [facility] Blood 07/23/2024 9:54 AM CDT 07/23/2024 10:24 AM CDT Narrative [facility] - 07/23/2024 11:28 AM CDT Is this test being ordered in advance for a procedure?->Yes Expected date of procedure:->08/13/24 Has the patient been transfused in the past 3 months?->No Ara Robbins NP LAB BLOOD BANK TEST ORD ERABLES Final Result [facility] [address] [place] [address] from Last 3 Months [facility] [place] Advance [place] For more information, please contact: [phone] * Full Code (Latest Code Status on File) Date Activated Date Inactivated Comments 09/19/2024 12:47 PM * Full Code Date Activated Date Inactivated Comments 09/18/2024 8:09 PM 09/19/2024 12:47 PM * Full Code Date Activated Date Inactivated Comments 08/13/2024 2:58 PM 08/14/2024 4:58 PM Care Teams Sap Data Architect Relationship Specialty Start Date End Date Elton De La Fuente MD PCP - General Family Medicine 06/02/21
--- OUTSIDE RECORDS SUMMARY | 2024-09-25 06:40 | XMS_ITS | Encounter Summary ---
Author Organization [facility] Address [facility] [place] [address] [place] [address] Care Team Providers Care Computer Operations Analyst Name Role Phone Unavailable Primary Care Provider Unavailabl e Encounter Details Date Type Department Care Team (Late st Contact Info) Description 06/17/[address] [facility] [address] [place] [address] Daksha Lee MD [address] [facility] [address] [place] [address] Social History Tobacco Use Types Packs/Day Years Used Date Smoking Tobacco: Never Assessed Sex and Gender Information Value Date Recorded Sex Assigned at Not on file Legal Sex Male 8:30 PM CDT Gender Identity Not on file Sexual Orientation Not on file documented as of this encounter Plan of Treatment Not on file documented as of this encounter Visit Diagnoses Not on filedocumented in this encounter
--- OUTSIDE RECORDS SUMMARY | 2024-09-25 06:40 | XMS_ITS | Encounter Summary ---
Author Organization [facility] Address [facility] [facility] [place] [address] [place] [address] Care Team Providers Care On Air Personality Name Role Phone Unavailable Primary Care Provider Unavailabl e Encounter Details Date Type Department Care Team (Late st Contact Info) Description 06/05/[address] [facility] [address] [facility] [place] [address] David Gil MD [address] [facility] [address] [place] [phone] Social History Tobacco Use Types Packs/Day Years [...]
--- OUTSIDE RECORDS SUMMARY | 2024-09-25 06:40 | XMS_ITS | Encounter Summary ---
Author Organization [facility] Healthcare Address [address] [place] [address] Care Team Providers Care Donkey Ride Operator Name Role Phone Elton De La Fuente MD Primary Care Provider [phone] Encounter Details Date Type Department Care Team (Latest Contact Info) Description 08/11/2023 7:00 PM LOCOMOTIVE REPAIRER DIESEL - 08/11/2023 11:59 PM LOCOMOTIVE REPAIRER DIESEL Hospital Encounter [address] [id number] Discharge Disposition: Discharge to home or self care Social History Tobacco Use Types Packs/Day Years Used Date Smoking Tobacco: Every Day Cigarettes 1 20 Smokeless Tobacco: Never Alcohol Use Standard Drinks/Week Comments Not Currently 0 (1 standard drink = 0.6 oz pur e alcohol) Recovering alcoholic-whiskey Sex and Gender Information Value Date Recorded Sex Assigned at Not on file Legal Sex Male 6:34 PM LOCOMOTIVE REPAIRER DIESEL Gender Identity Not on file Sexual Orientation Not on file 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 Not on file Not on file documented as of this encounter Medications at Time of Discharge cetirizine (ZyrTEC) 10 mg tablet Take 10 mg by mouth daily 07/23/[address] (VOLTAREN) 75 mg EC tablet Take 75 mg by mouth 2 (two) times a day 05/21/2021 07/23/2024 HYDROcodone-aceta minophen (NORCO) 7.5-325 mg per tablet Take by mouth every 8 (eight) hours as needed 02/25/2022 09/18/2024 ibuprofen (ADVIL,MOTRIN) 800 mg tablet Take 1 tablet (800 mg total) by mouth 3 (three) times a day as needed for pain 02/25/2022 08/14/2024 methocarbamoL (ROBAXIN) 500 mg tablet Take 1 tablet (500 mg total) by mouth 2 (two) times a day 20 tablet 06/28/2021 07/23/2024 documented as of this encounter Discharge Disposition Disposition Code Departure Means Destination Discharge to home or self care documented in this encounter Plan of Treatment Not on file documented as of this encounter Procedures Procedure Name Priority Date/Time Associated Diagnosis Comments SURGICAL PATHOLOGY Routine 08/11/2023 7: 39 AM LOCOMOTIVE REPAIRER DIESEL documented in this encounter Results * Surgical pathology (08/11/2023 7:39 AM LOCOMOTIVE REPAIRER DIESEL) Disc, intervertebral 023 7:39 AM LOCOMOTIVE REPAIRER DIESEL 08/14/2023 10:10 AM LOCOMOTIVE REPAIRER DIESEL Narrative 08/15/2023 12:34 PM LOCOMOTIVE REPAIRER DIESEL [address] ??[address] Tele: ?? Batsheva Ji MD - Camera Repairman Note to Patients: This report may contain [...] Patient Name: ??TRAMAINE MARIN Araceli SCOTT Address: ??[address] [place] [address] ??[id number] Gender: ??M : ??1970 (Age: 52) Service: ?? Location: ??, ?? Hospital #: ??[id number] Patient Type: ??[facility] Accession #: ? [id number] Taken: ? 08/11/2023 Received ? 08/14/2023 Reported: ? 08/15/2023 Physician(s): ? [facility] Kevin Brody M.D. DIAGNOSIS: Vertebra, cervical 5-6 disc, excision: ? - Fibrocartilaginous tissue and small portion of bone, with no significant histopathologic abnormality as08/15/2023 12:34 Examining Pathologist: Payam Davis M.D. Report Reviewed and Electronically Signed By ??Payam Davis M.D. 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 ??The specimen is filtered and entirely submitted in A1. ?? jxi/08/14/2023 11:24 ? ESB,JXI MICROSCOPIC DESCRIPTION: Microscopic examination supports the above captioned diagnosis. Clerical Data Follows A; [id number] REPORT IMAGES AND/OR SCANNED DOCUMENTS ONLY VIEWABLE IN PDF FORMAT The immunohistochemical test(s) cited in this report, if any, was developed and its performance characteristics determined by [facility] Pathology Department. ??It has not been cleared or approved by the U.S. Food and Drug Administration. ??The FDA has determined that such clearance or approval is not necessary. ??This test is used for clinical purposes. ??It should not be regarded as investigational or for research. ??[facility] Laboratory is certified under the Clinical Laboratory [...] del rosario (4B5) (rabbit monoclonal primary antibody). us Notinfile Unknown LAB PATHOLOGY ORDERABLES Final Result documented in this encounter Visit Diagnoses Not on filedocumented in this encounter Care Teams Donkey Ride Operator Relationship Specialty Start Date End Date Elton De La Fuente MD PCP - General Family Medicine 06/02/21 documented as of this encounter
--- OUTSIDE RECORDS SUMMARY | 2024-09-25 06:40 | XMS_ITS | Encounter Summary ---
Author Organization [facility] Healthcare Address [address] [place] [address] Care Team Providers Care Auto Electrical Technician Name Role Phone Elton De La Fuente MD Primary Care Provider [phone] Encounter Details Date Type Department Care Team (Late st Contact Info) Description 09/17/2024 Patient Self-Triage [facility] HealthCare/ Physicians [facility] [place] [address] Tony, [facility] Provider [address] [place], [place] [id number] Social History Tobacco Use Types Packs/Day Years [...] making you feel afraid or unsafe? 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
--- OUTSIDE RECORDS SUMMARY | 2024-09-25 06:40 | XMS_ITS | Encounter Summary ---
Author Organization [facility] Healthcare Address [address] [place] [address] Care Team Providers Care Supervisor Hard Candy Name Role Phone Elton De La Fuente MD Primary Care Provider [phone] Encounter Details Date Type Department Care Team (Late st Contact Info) Description 07/23/2024 Telephone [facility] Anesthesia [address] [place] [phone] Ara Robbins NP [address] [place], [place] [id number] Social History Tobacco Use Types Packs/Day Years [...] on file Legal Sex Male 6:34 PM RECRUITMENT ADVERTISING MANAGER Gender Identity Not on file Sexual Orientation Not on file 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 Brody office. Cardiology clearance requested for this patient. CURT 04/21/22. Patient provided with decontamination technician's contact info during PAT visit. Mendy updated on plan. documented in this encounter Plan of Treatment Not on file documented as of this encounter Visit Diagnoses Not on filedocumented in this encounter Care Teams Supervisor Hard Candy Relationship Specialty Start Date End Date Elton De La Fuente MD PCP - General Family Medicine 06/02/21 documented as of this encounter
--- OUTSIDE RECORDS SUMMARY | 2024-09-25 06:40 | XMS_ITS | Encounter Summary ---
Author Organization [facility] Address [address] [place] [address]. [place], [place] [id number] [place] [address] Care Team Providers Care Revenue Investigator Name Role Phone Elton De La Fuente MD Primary Care Provider [phone] Encounter Details Date Type Department Care Team (Latest Contact Info) Description 05/08/2024 Travel Social History Tobacco Use Types Packs/Day Years [...] on filedocumented in this encounter Care Teams Revenue Investigator Relationship Specialty Start Date End Date Elton De La Fuente MD [address] [place] [address] PCP - General FAMILY PRACTICE 05/08/24 documented as of this encounter
--- OUTSIDE RECORDS SUMMARY | 2024-09-25 06:40 | XMS_ITS | Clinical Summary ---
Author Organization [facility] [place] Address [address] [place] [address] Care Team Providers Care Production Editor Name Role Phone Elton De La Fuente MD Primary Care Provider [phone] Allergies Active Allergy Reactions Criticality Noted Date Comments Pseudoephedrine Other (See comments) Low 06/02/2021 [facility] Medications oxyCODONE-acetamin ophen (PERCOCET) 5-325 mg per tabletIndications: Pain Take 1 tablet by mouth every 4 (four) hours as needed for pain 10 tablet 09/24/20 24 Active acetaminophen (TYLENOL) 325 mg tabletIndications: Fever,Pain Take 2 tablets (650 mg total) by mouth every 4 (four) hours as needed for pain 09/24/20 24 Active cefTRIAXone (ROCEPHIN) syringeIndications :Skin/Soft Tissue Infection Infuse 20 mL (2,000 mg total) into a venous catheter daily 09/25/19 25 025 Active docusate sodium (COLACE) 100 mg capsuleIndications :constipation Take 1 capsule (100 mg total) by mouth 2 (two) times a day 09/24/20 24 Active nicotine (NICODERM CQ) [address] 1 patch on the skin daily 09/25/19 25 025 Active ondansetron ODT (ZOFRAN-ODT) 4 mg disintegrating tabletIndications: Nausea and Vomiting Take 1 tablet (4 mg total) by mouth every 6 (six) hours as needed for nausea or vomiting 09/24/20 24 Active HYDROcodone-acetam inophen (NORCO) 7.5-325 mg per tablet Take by mouth every 8 (eight) hours as needed 02/26/20 22 Discontinued TiZANidine (ZANAFLEX) 4 mg capsule Take [...] claudication Emphysema lung 07/23/2024 Tobacco use 07/23/2024 Encounters Date Type Department Care Team Description 09/19/2024 10:31 AM DOCK OPERATIONS SUPERVISOR Anesthesia Event [facility] [address] [place] [phone] Stephenie Rodriguez DO Tynes, Jessika Olegovna, CRNA 09/19/2024 10:03 AM DOCK OPERATIONS SUPERVISOR - 09/19/2024 12:08 PM DOCK OPERATIONS SUPERVISOR Surgery [facility] [address] [place] [phone] Kevin Brody MD INCISION AND DRAINAGE - LUMBAR 09/18/2024 7:53 PM DOCK OPERATIONS SUPERVISOR - Present Hospital Encounter [facility] [address] [place] [phone] Kita Astudillo MD Willis, MD Enoc Schroeder, Jovany Weeks MD Wound infection (Primary Dx); Cellulitis of other specified site 09/18/2024 Orders Only [address] [phone] Kita Astudillo MD 09/17/2024 Patient Self-Triage [facility] [address] [place] [address] Manuelitot, Generic Provider 08/13/2024 7:30 AM DOCK OPERATIONS SUPERVISOR - 08/13/2024 12:30 PM DOCK OPERATIONS SUPERVISOR Surgery [facility] [address] [place] [phone] Kevin Brody MD L3-5 Decompressive Laminectomy, Posterior Lumbar Interbody Fusion using Zavation EZ Span Cage, Mathew Screws, Local Autograph and L4-5 Repeat Discectomy 08/13/2024 7:26 AM DOCK OPERATIONS SUPERVISOR Anesthesia Event [facility] [address] [place] [phone] Jason Christianson MD Salameh, Besan Mohammed, PA 08/13/2024 5:41 AM DOCK OPERATIONS SUPERVISOR - 08/14/2024 12:58 PM DOCK OPERATIONS SUPERVISOR Hospital Encounter [address] [phone] Kevin Brody MD Pseudoclaudication syndrome Discharge Disposition: Discharge to home or self care 08/13/2024 Orders Only [facility] [address] [place] [phone] Kevin Brody MD 07/30/2024 10:15 AM DOCK OPERATIONS SUPERVISOR Office Visit [facility] Cardiology [address] [place] [address] [place] [phone] Hunter Smith MD Preop cardiovascular exam (Primary Dx); Tobacco abuse; Lipid screening 07/23/2024 8:45 AM CDT Pre-Admission Testing [facility] Pre Anesthesia Testing [address] [place] [phone] Preoperative testing (Primary Dx) 07/23/2024 Telephone [facility] [address] [place] [phone] Ara Robbins NP from Last 3 Months Immunizations Name Administration Dates Next Due Influenza, Trivalent, Preservative Free, Intramu scular 09/21/2024 Surgical History Surgery Date Site/Laterality Comments EYE SURGERY Bilateral as young child ANTERIOR CERVICAL DISCECTOMY W/ FUSION 09/25/2021 - 09/24/2022 MICRODISCECTOMY LUMBAR 09/25/2017 - 09/24/2018 Medical History Medical History Date Comments Kidney stone Degenerative disc disease, lumbar Lumbar spondylosis Cervical spondylosis Hypertension Family History Medical History Relation Name Comments Cancer Father Diabetes Father Hyperlipidemia Father Hypertension Father Lung disease Father Arthritis Mother Hypertension Mother Relation Name Status Comments Father Mother Alive Social History Tobacco Use Types Packs/Day Years Used Date Smoking Tobacco: Every Day Cigarettes 0.2 20 Smokeless Tobacco: Never Tobacco Cessation:Ready to Q uit: Not Asked; Counseling Given: Not Answered Alcohol Use Standard Drinks/Week Comments Not Currently 0 (1 standard drink = 0.6 oz pur e alcohol) Recovering alcoholic-whiskey [employer] Answer Date Recorded In the past 12 months has [employer], oil, or water [employer] threatened to shut off services in your [...] week 09/19/2024 How often do you attend chur or jew services? Never 09/19/2024 Do you belong to any clubs o r organizations such as scientologist groups, unions, fraternal or athletic groups, or [...] any time in the past 12 [facility], were you homeless or living in a penitentiary (including now)? No 09/19/2024 Personal Safety Answer Date Recorded Have you ever been in or are you currently in a harmful physical or emotional relationship or is someone making you feel afraid or unsafe? 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 Not on file Not on file Not on file Obstetrics History Last Filed Vital Signs Vital Sign Reading Time Taken Comments Blood Pressure 130/63 09/25/2024 4:31 AM DOCK OPERATIONS SUPERVISOR Pulse 62 09/25/2024 4:31 AM DOCK OPERATIONS SUPERVISOR Temperature 36.6 ??C (97.8 ??F) 09/25/2024 4:31 AM CS T Respiratory Rate 15 09/25/2024 4:31 AM DOCK OPERATIONS SUPERVISOR Oxygen Saturation 98% 09/25/2024 4:31 AM DOCK OPERATIONS SUPERVISOR Inhaled Oxygen Concentration - - Weight 84.4 kg (186 lb) 09/19/2024 9:40 AM DOCK OPERATIONS SUPERVISOR Height 182.9 cm (6') 09/19/2024 9:40 AM DOCK OPERATIONS SUPERVISOR Body Mass Index 25.23 09/19/2024 9:40 AM DOCK OPERATIONS SUPERVISOR Plan of Treatment Health Maintenance Due Date Last Done Comments Colon Cancer Screening-Colonoscopy 1970 Depression Screening 1970 Hepatitis C Screening 1970 Prostate Cancer Screening-PSA 1970 Pneumococcal vaccine <65 (1 of 2 - PCV) 1976 DTaP/Tdap/Td Vaccine (1 - Tdap) 1981 Hepatitis B Screening 1988 Regular Well Visit/Exam 18-64 1988 Zoster Vaccine (1 of 2) 2020 Influenza Vaccine Completed 09/21/2024 Medical Devices Implanted Type Area Transcription Device Identifier Shelf Expiration Date Model / Serial / Lot Biocomposites Stimulan Rapid Cure Kit P[employer] Landscape Architect 5cc 12.5cc Bone Void 620-005 - [id number] Implanted:Qty: 1 on 08/13/2024 by Kevin Brody MD at [facility] N/A: Spine Lumbar [employer]ocom[employer]ites [id number] 04/24/2027 620-005 / / [id number] [employer] Cage Spinal Lumbar 10 Degree Tlif Expandable 7-11.5mm Titanium [id number] - [id number] Implanted:Qty: 2 on 08/13/2024 by Kevin Brody MD at [facility] N/A: Spine Lumbar [employer] [id number] / / [place] Spine 4.5mm 35mm Polyaxial Spine Screw Bone Deformity [id number] - [id number] Implanted:Qty: 6 on 08/13/2024 by Kevin Brody MD at [facility] N/A: Spine Lumbar Amina Spine [id number] 5 / / [employer] Spine 4.5mm 75mm Contour Ulises Spinal Cocr [id number] - [id number] Implanted:Qty: 2 on 08/13/2024 by Kevin Brody MD at [facility] N/A: Spine Lumbar [employer] Spine [id number] / / Amina Spine 26mm Semiadjustable Transverse Spine Connector Ulises Posterior [id number] - [id number] Implanted:Qty: 1 on 08/13/2024 by Kevin Brody MD at [facility] N/A: Spine Lumbar [employer] Spine [id number] 6A / / Amina Spine 32mm Semiadjustable Transverse Spine Connector Ulises Posterior [id number] - [id number] Implanted:Qty: 1 on 08/13/2024 by Kevin Brody MD at [facility] N/A: Spine Lumbar Amina Spine [id number] 2A / / Procedures * The patient is currently admitted. The information in this section might not be complete until the patient is discharged. Procedure Name Priority Date/Time Associated Diagnosis Comments EGFR Routine 09/25/2024 5:49 AM DOCK OPERATIONS SUPERVISOR RENAL FUNCTION PANEL Routine 09/25/2024 5:49 AM DOCK OPERATIONS SUPERVISOR EGFR Routine 09/24/2024 7:50 AM DOCK OPERATIONS SUPERVISOR RENAL FUNCTION PANEL Routine 09/24/2024 7:50 AM DOCK OPERATIONS SUPERVISOR CBC WITHOUT DIFFERENTIAL Routine 09/24/2024 7:50 AM DOCK OPERATIONS SUPERVISOR DRUGS OF ABUSE SCREEN, URINE WITHOUT CONFIRMATION Routine 09/23/2024 6:26 PM DOCK OPERATIONS SUPERVISOR EGFR Routine 09/23/2024 6:17 AM DOCK OPERATIONS SUPERVISOR RENAL FUNCTION PANEL Routine 09/23/2024 6:17 AM DOCK OPERATIONS SUPERVISOR CBC WITHOUT DIFFERENTIAL Routine 09/23/2024 6:17 AM DOCK OPERATIONS SUPERVISOR XR CHEST 1 VIEW ED Urgent/IP Urgent 09/22/2024 12:05 PM DOCK OPERATIONS SUPERVISOR KS INSJ NON-TUNNELED CENTRAL VENOUS CATH AGE 5 YR/> Routine 09/22/2024 11:15 AM DOCK OPERATIONS SUPERVISOR Wound infection EGFR Routine 09/22/2024 8:12 AM DOCK OPERATIONS SUPERVISOR RENAL FUNCTION PANEL Routine 09/22/2024 8:12 AM DOCK OPERATIONS SUPERVISOR CBC WITHOUT DIFFERENTIAL Routine 09/22/2024 8:12 AM DOCK OPERATIONS SUPERVISOR EGFR Routine 09/21/2024 6:09 AM DOCK OPERATIONS SUPERVISOR RENAL FUNCTION PANEL Routine 09/21/2024 6:09 AM DOCK OPERATIONS SUPERVISOR CBC WITHOUT DIFFERENTIAL Routine 09/21/2024 6:09 AM DOCK OPERATIONS SUPERVISOR VANCOMYCIN LEVEL TROUGH Timed 09/20/2024 5:36 PM DOCK OPERATIONS SUPERVISOR CBC WITHOUT DIFFERENTIAL Routine 09/20/2024 5:58 AM DOCK OPERATIONS SUPERVISOR MYCOLOGY (FUNGAL) CULTURE Routine 09/19/2024 11:08 AM DOCK OPERATIONS SUPERVISOR TISSUE AEROBIC AND ANAEROBIC CULTURE AND GRAM STAIN Routine 09/19/2024 11:08 AM DOCK OPERATIONS SUPERVISOR MYCOLOGY (FUNGAL) CULTURE Routine 09/19/2024 11:07 AM DOCK OPERATIONS SUPERVISOR AEROBIC AND ANAEROBIC CULTURE AND GRAM STAIN Routine 09/19/2024 11:07 AM DOCK OPERATIONS SUPERVISOR MYCOLOGY (FUNGAL) CULTURE Routine 09/19/2024 11:07 AM DOCK OPERATIONS SUPERVISOR AEROBIC AND ANAEROBIC CULTURE AND GRAM STAIN Routine 09/19/2024 11:07 AM DOCK OPERATIONS SUPERVISOR KS AN PROCEDURE PLACEHOLDER Routine 09/19/2024 10:49 AM DOCK OPERATIONS SUPERVISOR KS AN ELECTIVE ENDOTRACHEAL AIRWAY Routine 09/19/2024 10:49 AM DOCK OPERATIONS SUPERVISOR INCISION AND DRAINAGE - BACK 09/19/2024 10:30 AM DOCK OPERATIONS SUPERVISOR LUMBAR WOUND INFECTION DIFFERENTIAL AUTO Routine 09/19/2024 1:1 9 AM DOCK OPERATIONS SUPERVISOR CBC WITH AUTO DIFFERENTIAL Routine 09/19/2024 1:19 AM DOCK OPERATIONS SUPERVISOR EGFR Routine 09/19/2024 12:55 AM DOCK OPERATIONS SUPERVISOR COMPREHENSIVE METABOLIC PANEL Routine 09/19/2024 12:55 AM DOCK OPERATIONS SUPERVISOR BLOOD CULTURE Routine 09/19/2024 12:55 AM DOCK OPERATIONS SUPERVISOR BLOOD CULTURE Routine 09/19/2024 12:55 AM DOCK OPERATIONS SUPERVISOR CBC WITHOUT DIFFERENTIAL Routine 08/14/2024 7:13 AM DOCK OPERATIONS SUPERVISOR SURGICAL PATHOLOGY Routine 08/13/2024 11:16 AM DOCK OPERATIONS SUPERVISOR FL FLUOROSCOPY < 1 HOUR IP Routine 08/13/2024 11:08 AM DOCK OPERATIONS SUPERVISOR XR SPINE LUMBAR 2 OR 3 VIEWS IP Routine 08/13/2024 11:08 AM DOCK OPERATIONS SUPERVISOR KS AN PROCEDURE PLACEHOLDER Routine 08/13/2024 7:59 AM DOCK OPERATIONS SUPERVISOR KS AN ELECTIVE ENDOTRACHEAL AIRWAY Routine 08/13/2024 7:59 AM DOCK OPERATIONS SUPERVISOR FUSION LUMBAR - POSTERIOR 2 LEVELS 08/13/2024 7:30 AM DOCK OPERATIONS SUPERVISOR Pseudoclaudication syndrome B CHECK SAMPLE STAT 08/13/2024 6:59 AM DOCK OPERATIONS SUPERVISOR POCT LIPID PANEL Routine 07/30/2024 10:33 AM DOCK OPERATIONS SUPERVISOR Lipid screening ECG 12-LEAD Routine 07/30/2024 10:22 AM DOCK OPERATIONS SUPERVISOR Preop cardiovascular exam DIFFERENTIAL AUTO Routine 07/23/2024 10:10 AM CDT Preoperative testing CBC WITH AUTO DIFFERENTIAL Routine 07/23/2024 10:10 AM CDT Preoperative testing HEMOGLOBIN A1C Routine 07/23/2024 10:10 AM CDT Preoperative testing VITAMIN D 25 HYDROXY Routine 07/23/2024 10:10 AM CDT Preoperative testing TYPE AND SCREEN Routine 07/23/2024 9:54 AM CDT Preoperative testing from Last 3 Months Results * eGFR (09/25/2024 5:49 AM DOCK OPERATIONS SUPERVISOR) eGFR >90 >=60 mL/min/1. 73 m2 Comment: [...] last reviewed 2021. Blood 09/25/2024 5:49 AM DOCK OPERATIONS SUPERVISOR 09/25/2024 6:01 AM DOCK OPERATIONS SUPERVISOR us Mitchell Grajeda MD LAB BLOOD ORDERABLES Final R esult [facility] [address] [place] [address] * (ABNORMAL) Renal function panel (09/25/2024 5:49 AM DOCK OPERATIONS SUPERVISOR) [facility] Sodium 142 135 - 145 mmol/L Potassium, pl 3.9 3.3 - 4.9 mmol/L [facility] Chloride 103 97 - 110 mmol/L [facility] CO2 29 22 - 32 mmol/L [facility] Anion gap 10 2 - 15 mmol/L [facility] BUN 10 6 - 25 mg/dL [facility] Creatinine 0.70(L) 0.80 - 1.30 mg/dL [facility] Glucose 88 70 - 199 mg/dL [facility] Comment: Interpretive Data Fasting glucose >/= 126 [...] 2022. Calcium 8.8 8.5 - 10.3 mg/dL [facility] Phosphorus, pl 4.1 2.3 - 4.5 mg/dL [facility] Albumin 3.7 3.5 - 5.0 g/dL [facility] Blood 09/25/2024 5:49 AM DOCK OPERATIONS SUPERVISOR 09/25/2024 6:01 AM DOCK OPERATIONS SUPERVISOR Mitchell Grajeda MD LAB BLOOD ORDERABLES Final R esult [facility] [address] [place] [address] * eGFR (09/24/2024 7:50 AM DOCK OPERATIONS SUPERVISOR) [facility] eGFR >90 >=60 mL/min/1. 73 m2 Comment: [...] last reviewed 2021. Blood 09/24/2024 7:50 AM DOCK OPERATIONS SUPERVISOR 09/24/2024 8:09 AM DOCK OPERATIONS SUPERVISOR us Mitchell Grajeda MD LAB BLOOD ORDERABLES Final R esult [facility] [address] [place] [address] * (ABNORMAL) CBC without differential (09/24/2024 7:50 AM DOCK OPERATIONS SUPERVISOR) WBC 11.4(H) 3.8 - 9.9 K/cumm Hgb 13.0 13.0 - 17.5 g/dL [facility] Hct 40.2 38.9 - 50.3 % [facility] Plt 280 150 - 400 K/cumm [facility] MPV 10.8 9.1 - 12.3 fL [facility] RBC 4.40 4.30 - 5.80 M/cumm [facility] MCV 91.4 81.3 - 96.4 fL [facility] MCH 29.5 27.1 - 33.3 pg [facility] MCHC 32.3 32.3 - 35.7 g/dL [facility] RDW CV 13.0 11.1 - 14.9 % [facility] RDW SD 43.6 35.7 - 48.1 fL [facility] NRBC abs 0.00 0.00 - 0.01 K/cumm [facility] Blood 09/24/2024 7:50 AM DOCK OPERATIONS SUPERVISOR 09/24/2024 8:10 AM DOCK OPERATIONS SUPERVISOR us Kevin Brody MD LAB BLOOD ORDERABLES Suzie l Result [facility] [address] Department [place] [address] * (ABNORMAL) Renal function panel (09/24/2024 7:50 AM DOCK OPERATIONS SUPERVISOR) Sodium 141 135 - 145 mmol/L Potassium, pl 4.0 3.3 - 4.9 mmol/L [facility] Chloride 101 97 - 110 mmol/L [facility] CO2 28 22 - 32 mmol/L [facility] Anion gap 12 2 - 15 mmol/L [facility] BUN 13 6 - 25 mg/dL [facility] Creatinine 0.75(L) 0.80 - 1.30 mg/dL [facility] Glucose 154 70 - 199 mg/dL [facility] Comment: Interpretive Data Fasting glucose >/= 126 [...] 2022. Calcium 9.0 8.5 - 10.3 mg/dL [facility] Phosphorus, pl 3.7 2.3 - 4.5 mg/dL [facility] Albumin 3.9 3.5 - 5.0 g/dL [facility] Blood 09/24/2024 7:50 AM DOCK OPERATIONS SUPERVISOR 09/24/2024 8:09 AM DOCK OPERATIONS SUPERVISOR us Mitchell Grajeda MD LAB BLOOD ORDERABLES Final R esult [facility] [address] [place] [address] * (ABNORMAL) Drugs of Abuse Screen, Urine without Confirmation (09/23/2024 6:26 PM DOCK OPERATIONS SUPERVISOR) Amphetamine, ur Not Detected CutOff 500ng/mL Comment: Interpretive Data - Amphetamines: ??Samples containing greater than 500 ng/mL d-methamphetamine ??or other cross-reacting amphetamine compounds are reported as positive. ??Amphetamine immunoassays are subject to significant false positive rates due to cross-reactivity of non-amphetamine drugs. Confirmatory testing required for definitive results. Current Interpretive Data was last reviewed 2023. Barbiturates, ur Not Detected CutOff 200ng/mL [facility] Comment: Interpretive Data - Barbiturates: ??Samples containing greater than 200 ng/mL secobarbital or other cross-reacting barbiturate compounds are reported as positive. ??False positive and false negative results are possible. Confirmatory testing required for definitive results. Current Interpretive Data was last reviewed 2023. Benzodiazepines, ur Screen Positive, presumptive (A) CutOff 100ng/mL [facility] Comment: Interpretive Data - Benzodiazepines: ??Samples containing greater than 100 ng/mL nordiazepam or other cross-reacting compounds are reported as positive. False positive and false negative results are possible. Confirmatory testing required for definitive results. Current Interpretive Data was last reviewed 2023. Cannabinoids, ur Not Detected CutOff 50 ng/mL [facility] Comment: Interpretive Data - Cannabinoids: ??Samples containing greater than 50 ng/mL delta-9 THC -COOH or other cross-reacting compounds are reported as positive. ??False positive and false negative results are possible. ??Confirmatory testing required for definitive results. Current Interpretive Data was last reviewed 2023. Cocaine, ur Not Detected CutOff 150ng/mL [facility] Comment: Interpretive Data - Cocaine: ??Samples containing greater than 150 ng/mL benzoylecgonine or other cross-reacting compounds are reported as positive. False positive and false negative results are possible. Confirmatory testing required for definitive results. Current Interpretive Data was last reviewed 2023. Fentanyl, Ur Not Detected CutOff 5 ng/mL [facility] Comment: Interpretive Data - Fentanyl: ?? Samples containing greater than 5 ng/mL norfentanyl, fentanyl, or other cross-reacting fentanyl compounds are reported as positive. False positive and false negative results are possible. Confirmatory testing required for definitive results. Current Interpretive Data was last reviewed 2023. Methadone, ur Not Detected CutOff 300ng/mL [facility] Comment: Interpretive Data - Methadone: ??Samples containing greater than 300 ng/mL d,l-methadone or other cross-reacting compounds are reported as positive. ??False positive and false negative results are possible. Confirmatory testing required for definitive results. Current Interpretive Data was last reviewed 2023. Opiates, ur Not Detected CutOff 300ng/mL [facility] Comment: Interpretive Data - Opiates: ??Samples containing greater than 300 ng/mL morphine or other cross-reacting compounds are reported as positive. ??False positive and false negative results are possible. Confirmatory testing required for definitive results. Current Interpretive Data was last reviewed 2023. Oxycodone, ur Screen Positive, presumptive (A) CutOff 100ng/mL [facility] Comment: Interpretive Data - Oxycodone: ??Samples containing greater than 100 ng/mL oxycodone or other cross-reacting compounds are reported as ??positive. ??False positive and false negative results are possible. Confirmatory testing required for definitive results. Current Interpretive Data was last reviewed 2023. Phencyclidine, ur Not Detected CutOff 25 ng/mL [facility] Comment: Interpretive Data - Phencyclidine: ??Samples containing greater than 25 ng/mL phencyclidine or other cross-reacting compounds are reported as positive. ??False positive and false negative results are possible. Confirmatory testing required for definitive results. Current Interpretive Data was last reviewed 2023. Urine Creatinine 87 mg/dL [facility] Comment: Interpretive Data Urine Creatinine: < 10 mg/dL is extremely dilute = or > 10 but < 20 mg/dL is dilute = or > 20 mg/dL is normal Current Interpretive Data was last revised on 2017. Urine 09/23/2024 6:26 PM DOCK OPERATIONS SUPERVISOR 09/23/2024 6:33 PM DOCK OPERATIONS SUPERVISOR Narrative [facility] - 09/23/2024 7:11 PM DOCK OPERATIONS SUPERVISOR Drug of Abuse screening is performed by immunoassay for medical purposes only. ??This is not to be used for Pain Management purposes. us Jovany Stubbs MD LAB URINE ORDERABLES Final Result [facility] [address] [place] [address] * eGFR (09/23/2024 6:17 AM DOCK OPERATIONS SUPERVISOR) eGFR >90 >=60 mL/min/1. 73 m2 Comment: [...] last reviewed 2021. Blood 09/23/2024 6:17 AM DOCK OPERATIONS SUPERVISOR 09/23/2024 6:34 AM DOCK OPERATIONS SUPERVISOR us Mitchell Grajeda MD LAB BLOOD ORDERABLES Final R esult Performing Organization Address [facility] Co de Phone Number [facility] [address] [place] [address] * (ABNORMAL) CBC without differential (09/23/2024 6:17 AM DOCK OPERATIONS SUPERVISOR) WBC 8.7 3.8 - 9.9 K/cumm Hgb 12.7(L) 13.0 - 17.5 g/dL [facility] Hct 39.6 38.9 - 50.3 % [facility] Plt 244 150 - 400 K/cumm [facility] MPV 10.9 9.1 - 12.3 fL [facility] RBC 4.30 4.30 - 5.80 M/cumm [facility] MCV 92.1 81.3 - 96.4 fL [facility] MCH 29.5 27.1 - 33.3 pg [facility] MCHC 32.1(L) 32.3 - 35.7 g/dL [facility] RDW CV 13.0 11.1 - 14.9 % [facility] [facility]) RDW SD 43.8 35.7 - 48.1 fL [facility] NRBC abs 0.00 0.00 - 0.01 K/cumm [facility] Blood 09/23/2024 6:17 AM DOCK OPERATIONS SUPERVISOR 09/23/2024 6:34 AM DOCK OPERATIONS SUPERVISOR us Kevin Brody MD LAB BLOOD ORDERABLES Suzie l Result Performing Organization Address [facility]/ZIP Co de Phone Number [facility] [address] [employer] [place], [place] [address] * (ABNORMAL) Renal function panel (09/23/2024 6:17 AM DOCK OPERATIONS SUPERVISOR) Pathologist [facility] Sodium 141 135 - 145 mmol/L Potassium, pl 4.1 3.3 - 4.9 mmol/L [facility] Chloride 100 97 - 110 mmol/L [facility] CO2 30 22 - 32 mmol/L [facility] Anion gap 11 2 - 15 mmol/L [facility] BUN 10 6 - 25 mg/dL [facility] Creatinine 0.72(L) 0.80 - 1.30 mg/dL [facility] Glucose 95 70 - 199 mg/dL [facility] Comment: Interpretive Data Fasting glucose >/= 126 [...] 2022. Calcium 8.7 8.5 - 10.3 mg/dL [facility] Phosphorus, pl 3.9 2.3 - 4.5 mg/dL [facility] Albumin 3.5 3.5 - 5.0 g/dL [facility] Blood 09/23/2024 6:17 AM DOCK OPERATIONS SUPERVISOR 09/23/2024 6:34 AM DOCK OPERATIONS SUPERVISOR us Mitchell Grajeda MD LAB BLOOD ORDERABLES Final R esult [facility] [address] [place] [address] * X-ray chest 1 view (Portable) (09/22/2024 12:05 PM DOCK OPERATIONS SUPERVISOR) Anatomical Region Laterality Modality Body, Chest N/A Computed Radiogr aphy 09/22/2024 12:4 0 PM DOCK OPERATIONS SUPERVISOR Impressions 09/22/2024 12:40 PM DOCK OPERATIONS SUPERVISOR Left upper extremity PICC tip in the mid SVC. Electronically signed by: Akil Cerda D.O. Narrative 09/22/2024 12:40 PM DOCK OPERATIONS SUPERVISOR EXAMINATION: XR CHEST 1 VIEW HISTORY: check line placement COMPARISON: Radiograph 03/30/2024 FINDINGS: Left upper extremity PICC tip in the mid SVC. ??Normal cardiomediastinal silhouette and pulmonary vasculature. ??No focal airspace opacity. ??No pneumothorax or large pleural effusion. ??No acute osseous abnormality. Procedure Note Akil Cerda DO - 09/22/2024 EXAMINATION: XR CHEST 1 VIEW HISTORY: check line placement COMPARISON: Radiograph 03/30/2024 FINDINGS: Left upper extremity PICC tip in the mid SVC. Normal cardiomediastinal silhouette and pulmonary vasculature. No focal airspace opacity. No pneumothorax or large pleural effusion. No acute osseous abnormality. IMPRESSION: Left upper extremity PICC tip in the mid SVC. Electronically signed by: Akil Cerda D.O. us Sue TAYLOR IMG XR PROCEDURES Fi nal Result * KS INSJ NON-TUNNELED CENTRAL VENOUS CATH AGE 5 YR/> (09/22/2024 11:15 AM DOCK OPERATIONS SUPERVISOR) Narrative Sue Steinberg PA - 09/22/2024 11:15 AM DOCK OPERATIONS SUPERVISOR Sue Steinberg PA ? 09/22/2024 11:46 AM PICC Line Insertion Date/Time: 09/22/2024 11:15 AM Performed by: Sue Steinberg PA Authorized by: Sue Steinberg PA ?? [place] Protocol: RN Notified of Procedure: yes ?? 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 73 m2 Comment: [...] last reviewed 2021. Blood 09/22/2024 8:12 AM DOCK OPERATIONS SUPERVISOR 09/22/2024 8:51 AM DOCK OPERATIONS SUPERVISOR us Mitchell Grajeda MD LAB BLOOD ORDERABLES Final R esult [facility] [address] [place] [address] * CBC without differential (09/22/2024 8:12 AM DOCK OPERATIONS SUPERVISOR) WBC 8.5 3.8 - 9.9 K/cumm Hgb 13.6 13.0 - 17.5 g/dL [facility] Hct 41.9 38.9 - 50.3 % [facility] Plt 241 150 - 400 K/cumm [facility] MPV 11.4 9.1 - 12.3 fL [facility] RBC 4.59 4.30 - 5.80 M/cumm [facility] MCV 91.3 81.3 - 96.4 fL [facility] MCH 29.6 27.1 - 33.3 pg [facility] MCHC 32.5 32.3 - 35.7 g/dL [facility] RDW CV 13.0 11.1 - 14.9 % [facility] RDW SD 43.8 35.7 - 48.1 fL [facility] NRBC abs 0.00 0.00 - 0.01 K/cumm [facility] Blood 09/22/2024 8:12 AM DOCK OPERATIONS SUPERVISOR 09/22/2024 8:52 AM DOCK OPERATIONS SUPERVISOR us Kevin Brody MD LAB BLOOD ORDERABLES Suzie l Result Performing Organization Address City/[facility]/ZIP Co de Phone Number [facility] [address] [place] [place] [address] * (ABNORMAL) Renal function panel (09/22/2024 8:12 AM DOCK OPERATIONS SUPERVISOR) Pathologist [facility] Sodium 143 135 - 145 mmol/L Potassium, pl 3.7 3.3 - 4.9 mmol/L [facility] Chloride 100 97 - 110 mmol/L [facility] CO2 31 22 - 32 mmol/L [facility] Anion gap 12 2 - 15 mmol/L [facility] BUN 9 6 - 25 mg/dL [facility] Creatinine 0.77(L) 0.80 - 1.30 mg/dL [facility] Glucose 144 70 - 199 mg/dL [facility] Comment: Interpretive Data Fasting glucose >/= 126 [...] 2022. Calcium 9.3 8.5 - 10.3 mg/dL [facility] Phosphorus, pl 4.6(H) 2.3 - 4.5 mg/dL [facility] Albumin 4.1 3.5 - 5.0 g/dL [facility] Blood 09/22/2024 8:12 AM DOCK OPERATIONS SUPERVISOR 09/22/2024 8:51 AM DOCK OPERATIONS SUPERVISOR us Mitchell Grajeda MD LAB BLOOD ORDERABLES Final R esult Performing Organization Address City/[facility]/ZIP Co de Phone Number [facility] [address] [place], [place] [id number] * eGFR (09/21/2024 6:09 AM DOCK OPERATIONS SUPERVISOR) Pathologist [facility] eGFR >90 >=60 mL/min/1. 73 m2 Comment: [...] last reviewed 2021. Blood 09/21/2024 6:09 AM DOCK OPERATIONS SUPERVISOR 09/21/2024 7:01 AM DOCK OPERATIONS SUPERVISOR us Mitchell Grajeda MD LAB BLOOD ORDERABLES Final R esult [facility] [address] [place] [address] * (ABNORMAL) CBC without differential (09/21/2024 6:09 AM DOCK OPERATIONS SUPERVISOR) Pathologist [facility] WBC 8.8 3.8 - 9.9 K/cumm Hgb 11.7(L) 13.0 - 17.5 g/dL [facility] Hct 36.0(L) 38.9 - 50.3 % [facility] Plt 162 150 - 400 K/cumm [facility] MPV 12.0 9.1 - 12.3 fL [facility] RBC 3.93(L) 4.30 - 5.80 M/cumm [facility] MCV 91.6 81.3 - 96.4 fL [facility] MCH 29.8 27.1 - 33.3 pg [facility] MCHC 32.5 32.3 - 35.7 g/dL [facility] RDW CV 13.0 11.1 - 14.9 % [facility] RDW SD 44.1 35.7 - 48.1 fL [facility] NRBC abs 0.00 0.00 - 0.01 K/cumm [facility] Blood 09/21/2024 6:09 AM DOCK OPERATIONS SUPERVISOR 09/21/2024 7:01 AM DOCK OPERATIONS SUPERVISOR Kevin Brody MD LAB BLOOD ORDERABLES Suzie gutierrez Result [facility] [address] [place] [address] * (ABNORMAL) Renal function panel (09/21/2024 6:09 AM DOCK OPERATIONS SUPERVISOR) Sodium 143 135 - 145 mmol/L Potassium, pl 3.5 3.3 - 4.9 mmol/L [facility] Chloride 105 97 - 110 mmol/L [facility] CO2 26 22 - 32 mmol/L [facility] Anion gap 12 2 - 15 mmol/L [facility] BUN 10 6 - 25 mg/dL [facility] Creatinine 0.70(L) 0.80 - 1.30 mg/dL [facility] Glucose 102 70 - 199 mg/dL [facility] Comment: Interpretive Data Fasting glucose >/= 126 [...] 2022. Calcium 8.6 8.5 - 10.3 mg/dL [facility] Phosphorus, pl 3.6 2.3 - 4.5 mg/dL [facility] Albumin 3.3(L) 3.5 - 5.0 g/dL [facility] Blood 09/21/2024 6:09 AM DOCK OPERATIONS SUPERVISOR 09/21/2024 7:01 AM DOCK OPERATIONS SUPERVISOR Mitchell Grajeda MD LAB BLOOD ORDERABLES Final R esult Performing Organization Address [facility] Co de Phone Number [facility] [address] [place] [address] * (ABNORMAL) Vancomycin level trough Please draw trough at this specific time. (09/20/2024 5:36 PM DOCK OPERATIONS SUPERVISOR) Pathologist [facility] Vancomycin trough 7.4(L) 10.0 - 20.0 mcg/mL Blood 09/20/2024 5:36 PM DOCK OPERATIONS SUPERVISOR 09/20/2024 5:40 PM DOCK OPERATIONS SUPERVISOR Narrative [facility] - 09/20/2024 6:00 PM DOCK OPERATIONS SUPERVISOR Please draw trough at this specific time. us Mitchell Grajeda MD LAB BLOOD ORDERABLES Final R esult Performing Organization Address City/[facility] Co de Phone Number [facility] [address] [place] [address] * (ABNORMAL) CBC without differential (09/20/2024 5:58 AM DOCK OPERATIONS SUPERVISOR) WBC 17.4(H) 3.8 - 9.9 K/cumm Hgb 12.8(L) 13.0 - 17.5 g/dL [facility] Hct 40.4 38.9 - 50.3 % [facility] Plt 174 150 - 400 K/cumm [facility] MPV 12.4(H) 9.1 - 12.3 fL [facility] RBC 4.37 4.30 - 5.80 M/cumm [facility] MCV 92.4 81.3 - 96.4 fL [facility] MCH 29.3 27.1 - 33.3 pg [facility] MCHC 31.7(L) 32.3 - 35.7 g/dL [facility] RDW CV 12.9 11.1 - 14.9 % [facility] RDW SD 44.1 35.7 - 48.1 fL [facility] NRBC abs 0.00 0.00 - 0.01 K/cumm [facility] Blood 09/20/2024 5:58 AM DOCK OPERATIONS SUPERVISOR 09/20/2024 6:35 AM DOCK OPERATIONS SUPERVISOR Kevin Brody MD LAB BLOOD ORDERABLES Suzie gutierrez Result [facility] [address] [place] [address] * (ABNORMAL) Tissue aerobic and anaerobic culture and gram stain Tissue Back, lower (09/19/2024 11:08AM DOCK OPERATIONS SUPERVISOR) Direct Specimen Exam Stain: No polymorphonuclear leukocytes seen. No organisms seen. Report Final Report: Very light growth Staphylococcus aureus, methicillin susceptible (.) [facility] Organism STAPHYLOCOCCUS AUREUS, METHICILLIN SUSCEPTIBLE [facility] Tissue (Back, lower) 09/19/2024 11:08 AM DOCK OPERATIONS SUPERVISOR 09/19/2024 12:11 PM DOCK OPERATIONS SUPERVISOR Narrative [facility] - 09/22/2024 9:51 AM DOCK OPERATIONS SUPERVISOR Deep Tissue Organism Antibiotic Method Susceptibility Staphylococcus [...] L ORDERABLES Final Result Performing Organization Address [facility]/ZIP Co de Phone Number [facility] [address] [facility] [place] [address] * (ABNORMAL) Aerobic and anaerobic culture and gram stain Abscess Back, lower (09/19/2024 11:07 AM DOCK OPERATIONS SUPERVISOR) Direct Specimen Exam Stain: No polymorphonuclear leukocytes seen. No organisms seen. Report Final Report: Light growth of: Staphylococcus aureus, methicillin susceptible Susceptibility reported on this organism on previous culture [id number] (.) [facility] Organism STAPHYLOCOCCUS AUREUS, METHICILLIN SUSCEPTIBLE [facility] Abscess (Back, lower) 09/19/2024 11:07 AM DOCK OPERATIONS SUPERVISOR 09/19/2024 12:25 PM DOCK OPERATIONS SUPERVISOR Narrative [facility] - 09/23/2024 8:55 AM DOCK OPERATIONS SUPERVISOR Deep Kevin Brody MD LAB MICROBIOLOGY - GENERA L ORDERABLES Final Result Performing Organization Address [facility] Co de Phone Number [facility] [address] [place] [address] * (ABNORMAL) Aerobic and anaerobic culture and gram stain Abscess Back, lower (09/19/2024 11:07 AM DOCK OPERATIONS SUPERVISOR) Direct Specimen Exam Stain: Few polymorphonuclear leukocytes seen. Rare Gram Positive Cocci Report Final Report: Moderate growth of: Staphylococcus aureus, methicillin susceptible (.) [facility] Organism STAPHYLOCOCCUS AUREUS, METHICILLIN SUSCEPTIBLE [facility] Abscess (Back, lower) 09/19/2024 11:07 AM DOCK OPERATIONS SUPERVISOR 09/19/2024 12:25 PM DOCK OPERATIONS SUPERVISOR Narrative [facility] - 09/23/2024 8:49 AM DOCK OPERATIONS SUPERVISOR Superficial Organism Antibiotic Method Susceptibility Staphylococcus aureus, [...] MICROBIOLOGY - GENERA L ORDERABLES Final Result [facility] [address] [place] [address] * KS AN ELECTIVE ENDOTRACHEAL AIRWAY, [place] AN PROCEDURE PLACEHOLDER (09/19/2024 10:49 AM DOCK OPERATIONS SUPERVISOR) Narrative Sonia David CRNA - 09/19/2024 10:49 AM DOCK OPERATIONS SUPERVISOR Sonia David CRNA ? 09/19/2024 10:50 AM Airway Patient location: OR Urgency: elective Indications for airway management: anesthesia Difficult airway: no Staff: Placed by: PHYSICAL SCIENCES INSTRUCTOR: Sonia David CRNA Emergent airway documentation: Risks [...] silk tape Number of attempts: 1 us Stephenie Rodriguez DO ANESTHESIA ORDERABLES Final Result * (ABNORMAL) Differential, auto (09/19/2024 1:19 AM DOCK OPERATIONS SUPERVISOR) [facility] Neutrophil abs 13.1(H) 1.5 - 6.5 K/cumm Imm gran abs 0.1 0.0 - 0.1 K/cumm [facility] Lymphocyte abs 1.3 0.8 - 3.3 K/cumm [facility] Monocyte abs 1.3(H) 0.2 - 0.8 K/cumm [facility] Eosinophil abs 0.0 0.0 - 0.5 K/cumm [facility] Basophil abs 0.0 0.0 - 0.1 K/cumm [facility] Neutrophil pct 83.0 % [facility] Comment: Interpretive Data Percent cell count reference ranges are not reported, since discordance with absolute values may lead to misinterpretation of CBC data. Current Interpretive Data was last revised on 2018. Imm gran pct 0.5 % [facility] Comment: Interpretive Data Percent cell count reference ranges are not reported, since discordance with absolute values may lead to misinterpretation of CBC data. Current Interpretive Data was last revised on 2018. Lymphocyte pct 8.0 % [facility] Comment: Interpretive Data Percent cell count reference ranges are not reported, since discordance with absolute values may lead to misinterpretation of CBC data. Current Interpretive Data was last revised on 2018. Monocyte pct 8.3 % [facility] Comment: Interpretive Data Percent cell count reference ranges are not reported, since discordance with absolute values may lead to misinterpretation of CBC data. Current Interpretive Data was last revised on 2018. Eosinophil pct 0.1 % [facility] Comment: Interpretive Data Percent cell count reference ranges are not reported, since discordance with absolute values may lead to misinterpretation of CBC data. Current Interpretive Data was last revised on 2018. Basophil pct 0.1 % [facility] Comment: Interpretive Data Percent cell count reference ranges are not reported, since discordance with absolute values may lead to misinterpretation of CBC data. Current Interpretive Data was last revised on 2018. Blood 09/19/2024 1:19 AM DOCK OPERATIONS SUPERVISOR 09/19/2024 1:19 AM DOCK OPERATIONS SUPERVISOR us Kita Astudillo MD LAB BLOOD ORDERABLES Final Resu lt [facility] [address] [place] [address] * (ABNORMAL) CBC with auto differential (09/19/2024 1:19 AM DOCK OPERATIONS SUPERVISOR) [facility] WBC 15.8(H) 3.8 - 9.9 K/cumm Hgb 13.0 13.0 - 17.5 g/dL [facility] Hct 39.4 38.9 - 50.3 % [facility] Plt 150 150 - 400 K/cumm [facility] MPV 12.1 9.1 - 12.3 fL [facility] RBC 4.38 4.30 - 5.80 M/cumm [facility] MCV 90.0 81.3 - 96.4 fL [facility] MCH 29.7 27.1 - 33.3 pg [facility] MCHC 33.0 32.3 - 35.7 g/dL [facility] RDW CV 12.7 11.1 - 14.9 % [facility] RDW SD 42.4 35.7 - 48.1 fL [facility] NRBC abs 0.00 0.00 - 0.01 K/cumm [facility] Blood 09/19/2024 1:19 AM DOCK OPERATIONS SUPERVISOR 09/19/2024 1:19 AM DOCK OPERATIONS SUPERVISOR us Kita Astudillo MD LAB BLOOD ORDERABLES Final Resu lt [facility] [address] [place] [address] * eGFR (09/19/2024 12:55 AM DOCK OPERATIONS SUPERVISOR) [facility] eGFR >90 >=60 mL/min/1. 73 m2 Comment: [...] reviewed 2021. Blood 09/19/2024 12:5 5 AM DOCK OPERATIONS SUPERVISOR 09/19/2024 1:19 AM DOCK OPERATIONS SUPERVISOR Kita Astudillo MD LAB BLOOD ORDERABLES Final Resu lt [facility] [address] [place] [address] * Blood culture Blood (09/19/2024 12:55 AM DOCK OPERATIONS SUPERVISOR) Report Final Report: No growth Blood 09/19/2024 12:5 5 AM DOCK OPERATIONS SUPERVISOR 09/19/2024 2:14 AM DOCK OPERATIONS SUPERVISOR Narrative [facility] - 09/24/2024 7:01 AM DOCK OPERATIONS SUPERVISOR From a different site than #1. Collection->Peripheral [...] organism identification may be performed using the [employer] Blood Culture Identification panel. This assay detects microbial DNA in a blood culture broth. This assay has been cleared by the [place] Food and Drug Administration and its performance characteristics have been verified by the [facility]. Interpretive data was last revised on October 27, 2022. us Kita Astudillo MD LAB MICROBIOLOGY - [facility] Final Result Performing Organization Address [facility] Co de Phone Number [facility] [address] [place] [address] * Blood culture Blood (09/19/2024 12:55 AM DOCK OPERATIONS SUPERVISOR) Pathologist [facility] Report Final Report: No growth Blood 09/19/2024 12:5 5 AM DOCK OPERATIONS SUPERVISOR 09/19/2024 2:14 AM DOCK OPERATIONS SUPERVISOR Narrative [facility] - 09/24/2024 7:01 AM DOCK OPERATIONS SUPERVISOR Collection->Peripheral Interpretive Data 1. Blood cultures are incubated and monitored continuously for 5 days (120 hours). The first negative report is issued within 24 hours of receipt in the laboratory. 2. All positive cultures are resulted and called to physicians/care providers as soon as they are detected. 3. A rapid molecular test for organism identification may be performed using the [employer] Blood Culture Identification panel. This assay detects microbial DNA in a blood culture broth. This assay has been cleared by the [place] Food and Drug Administration and its performance characteristics have been verified by the [facility]. Interpretive data was last revised on October 27, 2022. Kita Astudillo MD LAB MICROBIOLOGY - [facility] Final Result Performing Organization Address [facility] Co de Phone Number [facility] [address] [place] [address] * (ABNORMAL) Comprehensive metabolic panel (09/19/2024 12:55 AM DOCK OPERATIONS SUPERVISOR) Sodium 136 135 - 145 mmol/L Potassium, pl 4.1 3.3 - 4.9 mmol/L [facility] Comment:Hemolyzed; potassium value may be falsely elevated by as much as 0.3 - 0.5 mmol/L. Suggest redraw and reanalysis Chloride 98 97 - 110 mmol/L [facility] CO2 26 22 - 32 mmol/L [facility] Anion gap 12 2 - 15 mmol/L [facility] BUN 8 6 - 25 mg/dL [facility] Creatinine 0.70(L) 0.80 - 1.30 mg/dL [facility] Glucose 139 70 - 199 mg/dL [facility] Comment: Interpretive Data Fasting glucose >/= 126 [...] 2022. Calcium 9.1 8.5 - 10.3 mg/dL [facility] Bilirubin, total 0.9 0.1 - 1.2 mg/dL [facility] ([facility]) Protein, pl 6.7 6.5 - 8.5 g/dL [facility] ([facility]) Albumin 3.7 3.5 - 5.0 g/dL [facility] ([facility]) Alk phos 92 40 - 130 Units/L [facility] ([facility]) ALT 18 7 - 55 Units/L [facility] ([facility]) AST 22 10 - 50 Units/L [facility] ([facility]) Comment:Slightly Hemolyzed S pecimen Blood 09/19/2024 12:5 5 AM DOCK OPERATIONS SUPERVISOR 09/19/2024 1:19 AM DOCK OPERATIONS SUPERVISOR us Kita Astudillo MD LAB BLOOD ORDERABLES Final Resu lt [facility] ([facility]) [address] [place] [address] * (ABNORMAL) CBC without differential (08/14/2024 7:13 AM DOCK OPERATIONS SUPERVISOR) WBC 16.5(H) 3.8 - 9.9 K/cumm Hgb 14.5 13.0 - 17.5 g/dL [facility] ([facility]) Hct 43.7 38.9 - 50.3 % [facility] ([facility]) Plt 169 150 - 400 K/cumm [facility] ([facility]) MPV 12.0 9.1 - 12.3 fL [facility] ([facility]) RBC 4.87 4.30 - 5.80 M/cumm [facility] ([facility]) MCV 89.7 81.3 - 96.4 fL [facility] ([facility]) MCH 29.8 27.1 - 33.3 pg [facility] ([facility]) MCHC 33.2 32.3 - 35.7 g/dL [facility] ([facility]) RDW CV 13.3 11.1 - 14.9 % [facility]) RDW SD 44.0 35.7 - 48.1 fL [facility]) NRBC abs 0.00 0.00 - 0.01 K/cumm [facility]) Blood 08/14/2024 7:13 AM DOCK OPERATIONS SUPERVISOR 08/14/2024 7:51 AM DOCK OPERATIONS SUPERVISOR us Kevin Brody MD LAB BLOOD ORDERABLES Suzie gutierrez Result [place] [address] [place] [address] * Surgical pathology (08/13/2024 11:16 AM DOCK OPERATIONS SUPERVISOR) Disc, intervertebral 024 11:16 AM DOCK OPERATIONS SUPERVISOR 08/13/2024 1:53 PM DOCK OPERATIONS SUPERVISOR Narrative 08/14/2024 2:09 PM DOCK OPERATIONS SUPERVISOR [address] ??[address] Tele: ?? Batsheva iJ MD - Chemist Food Note to Patients: This report may contain [...] details. SURGICAL PATHOLOGY REPORT Patient Name: ??TRAMAINE MARINChristopher SCOTT Address: ??[address] [place] [id number] Gender: ??M : ??1970 (Age: 53) Service: ??Ortho Location: ??[id number], ?? Hospital #: ??[id number] Patient Type: ??MBC OP IN BED Accession #: ? [id number] Taken: ? 08/13/2024 Received ? 08/13/2024 Reported: [...] x 3.5 x 0.6 cm in aggregate Accounts Payable Supervisor sections are submitted in cassette labeled A1. ?? [facility] MICROSCOPIC DESCRIPTION: Microscopic examination supports the above captioned diagnosis. This case was signed out at [facility], [address] [place] [address]. Clerical Data Follows A; [id number] REPORT IMAGES AND/OR SCANNED DOCUMENTS ONLY VIEWABLE IN PDF FORMAT The immunohistochemical test(s) cited in this report, if any, was developed and its performance characteristics determined by [facility]ology Department. ??It has not been cleared or approved by the U.S. Food and Drug Administration. ??The FDA has determined that such clearance or approval is not necessary. ??This test is used for clinical purposes. ??It should not be regarded as investigational or for research. ??[facility] is certified under the Clinical Laboratory [...] part or completely in the following laboratories: [facility], [facility], [place], [place] [address] [place] [address], [address] [place] [id number]. Kevin Brody MD LAB PATHOLOGY ORDERABLES Final Result * [place] Fluoroscopy < 1 Hour (08/13/2024 11:08 AM DOCK OPERATIONS SUPERVISOR) Narrative [facility] - 08/13/2024 11:09 AM DOCK OPERATIONS SUPERVISOR The images from this study are not interpreted by Radiology. ??Please refer to the physician's procedure / OR operative note. Kevin Brody MD IMG FLUOROSCOPY PROCEDURE S Final Result Performing Organization Address City/State/[facility] Co de Phone Number [employer] * XR Spine Lumbar 2 or 3 Views (08/13/2024 11:08 AM DOCK OPERATIONS SUPERVISOR) Anatomical Region Laterality Modality Spine N/A Computed Radiogr aphy 08/13/2024 11:3 5 AM DOCK OPERATIONS SUPERVISOR Impressions 08/13/2024 11:35 AM DOCK OPERATIONS SUPERVISOR FINDINGS/IMPRESSION: 6 intraoperative fluoroscopic images are submitted for review. Fusion L4-L5 vertebral bodies. Postoperative changes of L3-L5 posterior fusion and decompression with L3-L4 interbody fusion device placement. Hardware is grossly intact. Please refer to the dedicated operative report for complete evaluation of real-time findings. Electronically signed by: Justus Toledo M.D. Narrative 08/13/2024 11:35 AM DOCK OPERATIONS SUPERVISOR EXAM: XR SPINE LUMBAR 2 OR 3 [...] findings. Electronically signed by: Justus Toledo M.D. us Kevin Brody MD IMG XR PROCEDURES Final R esult * KS AN ELECTIVE ENDOTRACHEAL AIRWAY, [place] AN PROCEDURE PLACEHOLDER (08/13/2024 7:59 AM DOCK OPERATIONS SUPERVISOR) Narrative Naomi Galvan CRNA - 08/13/2024 7:59 AM DOCK OPERATIONS SUPERVISOR Naomi Galvan CRNA ? 08/13/2024 ??8:01 AM Airway Patient location: OR Urgency: elective Indications for airway management: anesthesia Difficult airway: no Staff: Supervising provider: Jason Christianson MD Placed by: PHYSICAL SCIENCES INSTRUCTOR: Naomi Galvan CRNA Emergent airway documentation: Risks [...] Result * Check Sample (08/13/2024 6:59 AM DOCK OPERATIONS SUPERVISOR) ABO Rh O Positive MBC HCLL OTHER 08/13/2024 6:59 AM DOCK OPERATIONS SUPERVISOR 08/13/2024 7:23 AM DOCK OPERATIONS SUPERVISOR Ara Robbins NP LAB BLOOD ORDERABLES Fi nal Result [facility] [address] [place] [address] MBC * POCT lipid panel (07/30/2024 10:33 AM DOCK OPERATIONS SUPERVISOR) Cholesterol, POC 186 mg/dL HDL, POC 28 mg/dL Triglycerides, POC 215 mg/dL LDL Cholesterol POC 115 mg/dL Chol/HDL Ratio, POC 6.7 Non-HDL Cholesterol, POC 158 mg/dL Cholesterol Total, POC 186 mg/dL Capillary blood 07/30/2024 1 0:33 AM DOCK OPERATIONS SUPERVISOR Hunter Smith MD POINT OF CARE TEST ORDERABLES Fi nal Result * ECG 12 lead (07/30/2024 10:22 AM DOCK OPERATIONS SUPERVISOR) Hunter Smith MD ECG ORDERABLES Edited Result - Final * Differential, auto (07/23/2024 10:10 AM CDT) Neutrophil abs 5.6 1.5 - 6.5 K/cumm Imm gran abs 0.0 0.0 - 0.1 K/cumm [facility] Lymphocyte abs 2.1 0.8 - 3.3 K/cumm [facility]) Monocyte abs 0.7 0.2 - 0.8 K/cumm [facility]) Eosinophil abs 0.2 0.0 - 0.5 K/cumm [facility]) Basophil abs 0.0 0.0 - 0.1 K/cumm [facility]) Neutrophil pct 64.7 % [facility] Comment: Interpretive Data Percent cell count reference ranges are not reported, since discordance with absolute values may lead to misinterpretation of CBC data. Current Interpretive Data was last revised on 2018. Imm gran pct 0.2 % [facility] Comment: Interpretive Data Percent cell count reference ranges are not reported, since discordance with absolute values may lead to misinterpretation of CBC data. Current Interpretive Data was last revised on 2018. Lymphocyte pct 24.8 % [facility]) Comment: Interpretive Data Percent cell count reference ranges are not reported, since discordance with absolute values may lead to misinterpretation of CBC data. Current Interpretive Data was last revised on 2018. Monocyte pct 8.1 % [facility] Comment: Interpretive Data Percent cell count reference ranges are not reported, since discordance with absolute values may lead to misinterpretation of CBC data. Current Interpretive Data was last revised on 2018. Eosinophil pct 1.7 % [facility] Comment: Interpretive Data Percent cell count reference ranges are not reported, since discordance with absolute values may lead to misinterpretation of CBC data. Current Interpretive Data was last revised on 2018. Basophil pct 0.5 % [facility] Comment: Interpretive Data Percent cell count reference ranges are not reported, since discordance with absolute values may lead to misinterpretation of CBC data. Current Interpretive Data was last revised on 2018. Blood 07/23/2024 10:1 0 AM CDT 07/23/2024 10:10 AM CDT us Ara Robbins FITNESS ATTENDANT LAB BLOOD ORDERABLES Fi nal Result [facility] [address] [place] [address] * CBC with auto differential (07/23/2024 10:10 AM CDT) WBC 8.6 3.8 - 9.9 K/cumm Hgb 15.7 13.0 - 17.5 g/dL [facility]) Hct 47.5 38.9 - 50.3 % [facility]) Plt 184 150 - 400 K/cumm [facility]) MPV 11.6 9.1 - 12.3 fL [facility]) RBC 5.27 4.30 - 5.80 M/cumm [facility] MCV 90.1 81.3 - 96.4 fL [facility]) MCH 29.8 27.1 - 33.3 pg [facility]) MCHC 33.1 32.3 - 35.7 g/dL [facility]) RDW CV 12.9 11.1 - 14.9 % [facility] RDW SD 42.5 35.7 - 48.1 fL [facility]) NRBC abs 0.00 0.00 - 0.01 K/cumm [facility] Blood 07/23/2024 10:1 0 AM CDT 07/23/2024 10:10 AM CDT Ara Robbins NP LAB BLOOD ORDERABLES Fi nal Result Performing Organization Address City/[facility]/ZIP Co de Phone Number [facility] [address] [place] [place] [address] * Vitamin D 25 hydroxy (07/23/2024 10:10 AM CDT) [facility] Vitamin D 25-OH 38 30 - 80 ng/mL Blood 07/23/2024 10:1 0 AM CDT 07/23/2024 10:10 AM CDT Ara Robbins NP LAB BLOOD ORDERABLES Fi nal Result Performing Organization Address [facility]/ZIP Co de Phone Number [facility] [address] [place] [place] [address] * (ABNORMAL) Hemoglobin A1c (07/23/2024 10:10 AM CDT) [facility] Hgb A1C 5.7(H) 4.0 - 5.6 % Estimated Average Glucose 117 mg/dL [facility] Comment: The ADA recommends reporting an estimated Average Glucose (eAG) with all Hemoglobin A1c results using the equation derived from a study of 507 normal and diabetic adults. ??Minority populations were underrepresented and children were not included. ?? (Diabetes Care 31:3170-1026, 2008). ??The eAG is not equivalent to a fasting glucose. Blood 07/23/2024 10:1 0 AM CDT 07/23/2024 10:10 AM CDT Ara Robbins NP LAB BLOOD ORDERABLES Fi nal Result Performing Organization Address [facility] Co de Phone Number [facility] [address] [place] [address] * Type and screen (07/23/2024 9:54 AM CDT) [place], indirect Negative ABO Rh O Positive [facility] Blood 07/23/2024 9:54 AM CDT 07/23/2024 10:24 AM CDT Narrative [facility] - 07/23/2024 11:28 AM CDT Is this test being ordered in advance for a procedure?->Yes Expected date of procedure:->08/13/24 Has the patient been transfused in the past 3 months?->No Ara Robbins NP LAB BLOOD BANK TEST ORD ERABLES Final Result Performing Organization Address [facility] de Phone Number [facility] [address] [place] [address] from Last 3 Months Insurance ALEX Member Subscriber Plan / Payer (Ef fective 2020-Present) Name:Tramaine Marin Jr. Relation to Subscriber:Self Name:Tramaine Marin Jr. Payer ID:[id number] ([facility]) Type:AETNA HMO/PPO Address: [address] [place] [address] [employer] [place] Member Subscriber Plan / Payer (Ef fective 2023-Present) Name:Tramaine Marin Jr. Relation to Subscriber:Self Name:Tramaine Marin Jr. Payer ID:[id number] ([facility]) Type:HEALTHCARE/EXCHANGE Address: [address] [place] [address] [employer] [place] Member Subscriber Plan / Payer (Ef fective 2023-Present) Name:Tramaine Marin Jr. Relation to Subscriber:Self Name:Tramaine Marin Jr. Payer ID:[id number] ([facility]) Type:HEALTHCARE/EXCHANGE Address: [facility] [id number] [place] [address] Advance Directives For more information, please contact: [phone] * Full Code (Latest Code Status on File) Date Activated Date Inactivated Comments 09/19/2024 12:47 PM * Full Code Date Activated Date Inactivated Comments 09/18/2024 8:09 PM 09/19/2024 12:47 PM * Full Code Date Activated Date Inactivated Comments 08/13/2024 2:58 PM 08/14/2024 4:58 PM Care Teams Production Editor Relationship Specialty Start Date End Date Elton De La Fuente MD PCP - General Family Medicine 06/02/21
--- OUTSIDE RECORDS SUMMARY | 2024-09-25 06:40 | XMS_ITS | Encounter Summary ---
Author Organization [facility] Address [address] [place] [address]. [place] [address] [place] [address] Care Team Providers Care Commodity Trader Name Role Phone Genet De La Fuente MD Primary Care Provider [phone] Reason for Visit * Reason Comments Dehydration Encounter Details Date Type Department Care Team (Late st Contact Info) Description 05/08/2024 9:47 AM CDT - 05/08/2024 11:59 AM CDT Emergency [facility] [place] [address] Charity Tristan, CLAUDIA [address] [id number] Dehydration Discharge Disposition: Home or Self Care (Routine Discharge) Social History Tobacco Use Types Packs/Day Years Used Date Smoking Tobacco: Never Assessed Sex and Gender Information Value Date Recorded Sex Assigned at Not on file Legal Sex Male 8:30 PM CDT Gender Identity Not on file Sexual Orientation Not on file documented as of this encounter Last Filed Vital Signs Vital Sign Reading Time Taken Comments Blood Pressure 124/70 05/08/2024 11:00 AM CDT Pulse 89 05/08/2024 9:44 AM CDT Temperature 36.3 ??C (97.3 ??F) 05/08/2024 9:44 AM CD T Respiratory Rate 18 05/08/2024 9:44 AM CDT Oxygen Saturation 97% 05/08/2024 11:00 AM CDT Inhaled Oxygen Concentration - - Weight 78.5 kg (173 lb) 05/08/2024 9:44 AM CDT Height 182.9 cm (6') 05/08/2024 9:44 AM CDT Body Mass Index 23.46 05/08/2024 9:44 AM CDT documented in this encounter Discharge Instructions * Discharge Instructions* CLAUDIA Shelby - 05/08/2024 11:49 AM CDT Thank you for giving us the opportunity to care for you today. If at any point you are becoming more ill, please call your doctor or return here. You are always welcome back. Our practice is committed to providing you the very best in healthcare. We want to hear from you! Please fill out the survey you get from us. Your feedback is anonymous & helps us improve the patient experience for you and others in the community we serve. - DENTON Harp PA-C - Emergency Medicine Provider ADDITIONAL DISCHARGE INSTRUCTIONS: --Emergency Departments (ED) provide medical screening exams and initial stabilizing treatment of emergency medical conditions. Medicine is an inexact science and many conditions cannot be diagnosed or completely treated during a single ED visit. Your treating healthcare provider(s) today feel yourcondition has been stabilized so further care as an outpatient is reasonable. Emergency care does not substitute for complete, ongoing, or follow-up care by your primary care physician or product/industry consultant.Please mention to your follow-up physician that you were in the emergency department and request that they review your labs and/or imaging to ensure all findings are followed up on. --Your medication list was reviewed prior to treatment, and at discharge, by the treating provider for the purpose of this outpatient visit only. Please review this entire medication list with your pharmacist, primary care physician, and specialist(s). It is your responsibility to share any new medication instructions you received this visit with your doctor(s). Although no medicine is without risk, your healthcare provider today feels reasonable decisions were made concerning starting new medications and stopping or changing the dosages of your usual medications until you receive follow-up care. Take medications only as directed. Many medications can cause drowsiness, especially those for pain, anxiety, muscle spasms, nausea, and allergies. DO NOT drive, drink alcohol, operate power machinery, or participate in potentially dangerous activities if taking medicines that make you tired. Chronic pain is best managed by pain specialists or primary care physicians, so narcotic refills are not routinely dispensed in the ED. DO NOT take multiple medications containing acetaminophen (Tylenol), such as many narcotic drug combinations and evek-ilc-wfhnexz cold medicines. * Attachments The following attachments cannot be sent through Care Everywhere. * Fatigue Discharge Instructions (Egyptian) * Shortness of Breath, Adult ED (Egyptian) documented in this encounter Medications at Time of Discharge albuterol sulfate HFA 108 (90 Base) MCG/ACT inhaler Inhale 2 puffs into the lungs every 6 (six) hours as needed. 18 g 05/08/2024 05/08/2025 predniSONE (DELTASONE) 20 MG tablet Take 1 tablet (20 mg total) by mouth 2 (two) times daily for 4 days. 8 tablet 05/08/2024 05/12/2024 documented as of this encounter ED Notes * Jany Harrell RN - 05/08/2024 11:58 AM CDT Provider discussed today's findings with the patient/family. The patient has been given informationregarding their treatment, follow up and concerning symptoms for which they should seek urgent or emergent attention. I have expressed the the importance of seeking attention should there be any new,or worsening symptoms or persistence of their condition. Patient verbalized understanding of the discharge instructions. * CLAUDIA Shelby - 05/08/2024 9:51 AM CDT [place], [place] EMERGENCY DEPARTMENT ENCOUNTER HISTORICAL INFORMATION Primary Care Doctor: GENET DE LA FUENTE MD Patient information was obtained primarily from the patient, nursing notes. History/Exam limitations: None Provider at Bedside Date/Time Event User Comments 05/08/24 0947 Provider at Bedside Assessing Patient CHARITY TRISTAN Trae -- CHIEF COMPLAINT Dehydration Chief Complaint Patient presents with Dehydration HPI Tramaine Marin is a 53-year-old male who presents with shortness of breath and feeling fatigued thathas been ongoing for the past 2 weeks. He states that he thought it started a couple of weeks ago when he felt that he was close to he did not his oxygen. 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 He states that he noticed his urine was dark and had been increasing his hydration athome. He said that his shortness of breath feels worse with exertion. He denies any chest pain. Notes that he is a smoker. States he has never been officially diagnosed with COPD but has been discussed. He states that he had a leftover inhaler that he tried last night. Denies any acute cough or fever. Denies diagnosis of chronic medical conditions. PAST MEDICAL HISTORY History reviewed. No pertinent past medical history. SURGICAL HISTORY History reviewed. No pertinent surgical history. CURRENT MEDICATIONS No current facility-administered medications for this encounter. Current Outpatient Medications: albuterol sulfate HFA 108 (90 Base) MCG/ACT inhaler, Inhale 2 puffs into the lungs every 6 (six) hours as needed., Disp: 18 g, Rfl: 0 predniSONE (DELTASONE) 20 MG tablet, Take 1 tablet (20 mg total) by mouth 2 (two) times daily for 4days., Disp: 8 tablet, Rfl: 0 ALLERGIES Review of patient's allergies indicates: Allergen Reactions Pseudoephedrine Other (see comment) shakey FAMILY HISTORY No family history on file. SOCIAL HISTORY Social History Socioeconomic History Marital status: Single Physical Exam VITAL SIGNS: Filed Vitals: 05/08/24 0944 05/08/24 1100 BP: (!) 157/88 124/70 Pulse: 89 Resp: 18 Temp: 97.3 ??F (36.3 ??C) TempSrc: Temporal SpO2: 100% 97% Weight: 78.5 kg (173 lb) Height: 1.829 m (6') Constitutional: Well developed, No acute distress, Non-toxic appearance. Integument: Warm, Dry HEENT: Normocephalic, Atraumatic Respiratory: Normal breath sounds, No respiratory distress. No wheezing. Cardiovascular: Normal heart rate, Normal rhythm Musculoskeletal: No edema. Neurologic: Alert, No focal deficits noted. Psychiatric: Affect normal, Judgment normal, Mood normal. EKG (interpreted by ED provider) Results for orders placed or performed during the hospital encounter of 05/08/24 [address] 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1970 Requested By: CHARITY TRISTAN Order Number: [id number] Reading MD: Jason Tapia Measurements Intervals Dutton Rate: 76 P: 69 AL: 157 QRS: -27 QRSD: 86 T: 44 QT: 386 QTc: 436 Interpretive Statements SINUS RHYTHM RSR' In V1 Or V2 Right VCD Or RVH No previous ECG available for comparison Preliminary EKG Interpretation by CLAUDIA Harp Other ischemic changes, not STEMI LABORATORY Results for orders placed or performed during the hospital encounter of 05/08/24 CBC W/DIFF AUTOMATED Result Value Ref Range WBC 10.76 4.5 - 11.0 x10'3/uL RBC 5.29 4.70 - 6.10 x10'6/uL HGB 15.8 14.0 - 18.0 G/DL HCT 47.2 43.0 - 54.0 % MCV 89.2 80.0 - 94.0 FL MCH 29.9 27.0 - 31.0 PG MCHC 33.5 32.0 - 36.0 G/DL RDW 13.3 11.5 - 14.5 % PLT 177 130 - 400 x10'3/uL MPV 11.4 9.3 - 12.2 FL DIFFERENTIAL TYPE AUTOMATED DIFFERENTIAL NEUTROPHILS % 72.7 % LYMPHOCYTES % 18.4 % MONOCYTES % 6.7 % EOSINOPHILS 1.3 % BASOPHILS 0.5 % IMMATURE GRANS % 0.4 % ABS. NEUTROPHILS 7.83 (H) 1.80 - 7.70 x10'3/uL ABS. LYMPHOCYTES 1.98 1.00 - 4.80 x10'3/uL ABS. MONOCYTES 0.72 0.30 - 0.82 x10'3/uL ABS. EOSINOPHILS 0.14 0.04 - 0.54 x10'3/uL ABS. BASOPHILS 0.05 0.01 - 0.08 x10'3/uL ABS. IMMATURE GRANULOCYTES 0.04 0.00 - 0.49 x10'3/uL COMPREHENSIVE METABOLIC PANEL Result Value Ref Range GLUCOSE 161 (H) 70 - 99 MG/DL BUN 9 7 - 18 MG/DL CREATININE S/P/B 0.95 0.7 - 1.3 MG/DL SODIUM S/P/B 140 136 - 145 MMOL/L POTASSIUM S/P/B 3.6 3.5 - 5.1 MMOL/L CHLORIDE S/P/B 103 100 - 108 MMOL/L CO2 28.2 21 - 32 MMOL/L CALCIUM S/P/B 9.2 8.5 - 10.1 MG/DL BILIRUBIN TOTAL S/P/B 1.3 (H) 0.2 - 1.2 MG/DL TOTAL PROTEIN S/P/B 7.4 6.4 - 8.2 G/DL ALBUMIN S/P/B 3.7 3.4 - 5.0 G/DL AST 17 15 - 37 U/L ALT 22 16 - 60 U/L ALKALINE PHOSPHATASE S/P/B 81 50 - 136 U/L ANION GAP 8.8 5 - 15 MMOL/L BUN CREATININE RATIO 9.5 6 - 26 A/G RATIO 1.0 1.0 - 2.0 RATIO GFR ESTIMATE >90 >90 ML/MIN/1.73 M2 TROPONIN, QUANT Result Value Ref Range TROPONIN I HIGH SENSITIVITY 4 <79 ng/L D-DIMER, QUANTITATIVE Result Value Ref Range D-DIMER 325 0 - 500 ng[FEU]/mL URINALYSIS Result Value Ref Range Specimen Type URINE CLEAN CATCH COLOR (U) YELLOW TRANSPARENCY CLEAR SPECIFIC GRAVITY (U) 1.022 1.001 - 1.030 U PH 6.0 5.0 - 9.0 LEUKOCYTES (U) NEGATIVE NEGATIVE NITRITES NEGATIVE NEGATIVE PROTEIN RANDOM (U) 10 <30 MG/DL GLUCOSE (U) NORMAL NORMAL MG/DL KETONES MG/DL (U) NEGATIVE NEGATIVE MG/DL UROBILINOGEN NORMAL NORMAL MG/DL BILIRUBIN (U) NEGATIVE NEGATIVE MG/DL BLOOD (U) NEGATIVE NEGATIVE RADIOLOGY XR CHEST PA+LAT Final Result by User, [id number] (05/08 102) EXAM: XR CHEST PA+LAT INDICATION: Fatigue and shortness of breath. TECHNIQUE: PA and lateral views of the chest obtained. COMPARISON EXAM: None FINDINGS: Lungs are clear. The heart size and pulmonary vascular caliber is normal. Skeletal structures are intact. IMPRESSION: NORMAL CHEST. Referred By: Interpreted By: Trung Diaz MD, 05/08/2024 10:26 AM PROCEDURES Procedures MDM ED Course as of 05/08/24 1205 MonMay 08, 2024 1033 CXR: IMPRESSION: NORMAL CHEST. [HS] 1112 TROPONIN I HIGH SENSITIVITY: 4 [HS] 1143 D-DIMER: 325 WNL; suspect low risk of PE. [HS] 1144 CXR: IMPRESSION: NORMAL CHEST. [HS] 1204 Patient well-appearing with stable vital signs. Workup grossly unremarkable including negativeD-dimer so low risk of PE. Unremarkable cardiac evaluation. Labs otherwise grossly unremarkable. Chest x-ray within normal limits and no evidence of infection. Advised patient of all findings of workup. Emphasized importance of follow-up with primary care doctor for further evaluation. Patient questions if he could have had COVID at the onset of his symptoms and this is the continued sequela. Discussed that it is possible however COVID test would likely then be negative today and is not warranted and patient agrees. Will discharge home with refill of his inhaler as well as short course of prednisone. [HS] ED Course User Index [HS] CLAUDIA Shelby I have discussed today's findings with the patient and provided information regarding the likely diagnosis. The patient has been given information regarding their treatment, follow up and concerning symptoms for which they should seek urgent or emergent attention. I have expressed the the importance of seeking attention should there be any new, or worsening symptoms or persistence of their condition. The patient is stable at discharge and has verbalized understanding of these instructions. Impression/Disposition SNOMED CT(R) 1. Shortness of breath DYSPNEA 2. Fatigue FATIGUE Disposition: Discharge Medications sodium chloride 0.9% bolus infusion 1,000 mL (0 mLs Intravenous Infusion Stop Time 05/08/24 1033) Discharge Medication List as of 05/08/2024 11:53 AM START taking these medications Details albuterol sulfate HFA 108 (90 Base) MCG/ACT inhaler Inhale 2 puffs into the lungs every 6 (six) hours as needed., Starting Mon05/08/2024, Until Zoie 05/08/2025 at 2359, Eprescribe Class: Fax Pharmacy: [facility] [phone] - [facility] [address] (Ph #: [phone]) predniSONE (DELTASONE) 20 MG tablet Take 1 tablet (20 mg total) by mouth 2 (two) times daily for 4 days., Starting 05/08/2024, Until 05/12/2024, Eprescribe Class: Fax Pharmacy: [place], [place] - [phone] - [facility] [address] (Ph #: [phone]) CLAUDIA SHELBY PA 05/08/24 1205 Cosigned by Shaun Desouza MD at 05/08/2024 12:54 PM CDT * Kemi Foy RN - 05/08/2024 9:44 AM CDT Pt here d/t 'really really really tired' thinks he had heat exhaustion a few weeks ago, c/o sob andfeeling tired. documented in this encounter Plan of Treatment Not on file documented as of this encounter Procedures Procedure Name Priority Date/Time Associated Diagnosis Comments HC URINALYSIS AUTO W/O MICRO STAT 05/08/2024 10:27 AM CDT D-DIMER, QUANTITATIVE STAT 05/08/2024 10:27 AM CDT XR CHEST PA+LAT STAT 05/08/2024 10:23 AM CDT ECG 12-LEAD Routine 05/08/2024 10:09 AM CDT COMPREHENSIVE METABOLIC PANEL STAT 05/08/2024 10:00 AM CDT CBC W/DIFF AUTOMATED STAT 05/08/2024 10:00 AM CDT TROPONIN, QUANT STAT 05/08/2024 10:00 AM CDT documented in this encounter Results * URINALYSIS (05/08/2024 10:27 AM CDT) SPECIMEN TYPE URINE CLEAN CATCH 05/08/2024 10:24 AM CDT [facility] COLOR (U) YELLOW 05/08/2024 10:47 AM CDT [facility] TRANSPARENCY CLEAR 05/08/2024 10:47 AM CDT [facility] SPECIFIC GRAVITY (U) 1.022 1.001 - 1.030 05/08/2024 10:47 AM CDT [facility] U PH 6.0 5.0 - 9.0 05/08/2024 10:47 AM CDT [facility] LEUKOCYTES (U) NEGATIVE NEGATIVE 05/08/2024 10:47 AM CDT [facility] NITRITES NEGATIVE NEGATIVE 05/08/2024 10:47 AM CDT [facility] PROTEIN RANDOM (U) 10 <30 MG/DL 05/08/2024 10:47 AM CDT [facility] GLUCOSE (U) NORMAL NORMAL MG/DL 05/08/2024 10:47 AM CDT [facility] KETONES MG/DL (U) NEGATIVE NEGATIVE MG/DL 05/08/2024 10:47 AM CDT [facility] UROBILINOGEN NORMAL NORMAL MG/DL 05/08/2024 10:47 AM CDT [facility] BILIRUBIN (U) NEGATIVE NEGATIVE MG/DL 05/08/2024 10:47 AM CDT [facility] BLOOD (U) NEGATIVE NEGATIVE 05/08/2024 10:47 AM CDT [facility] URINE SPECIMEN OBTAINED BY CLEAN CATCH PROCEDURE / Unknown 05/08/2024 10:27 AM CDT Charity TAYLOR URINE ORDERABLES Final Resu lt Performing Organization Address City/[facility] Co de Phone Number [facility] [address] [place] [phone], * D-DIMER, QUANTITATIVE (05/08/2024 10:27 AM CDT) D-DIMER 325 0 - 500 ng{FEU}/mL 05/08/2024 11:15 AM CDT [facility] Comment: D-Dimer values less than or equal to 500 ng/mL FEU have a negative predictive value of >95% for exclusion of deep vein thrombosis and pulmonary embolism. In patients over 50 (who tend to have higher normal baseline D-Dimer values), recent studies suggest age-adjusted D-Dimer cutoff values (calculated as: age [years] x 10 ng/mL) result in equivalent outcomes and no additional false negative findings. 05/08/2024 10:2 7 AM CDT [facility]ity TAYLOR [facility] Final Resul t Performing Organization Address [facility] Co de Phone Number [facility] [address] [place] [phone], * XR CHEST PA+LAT (05/08/2024 10:23 AM CDT) Anatomical Region Laterality Modality Chest Radiographic Riddhi ging 05/08/2024 10:2 6 AM CDT Impressions 05/08/2024 10:27 AM CDT IMPRESSION: NORMAL CHEST. Referred By: ?? Interpreted By: Trung Diaz MD, 05/08/2024 10:26 AM Narrative 05/08/2024 10:27 AM CDT EXAM: XR CHEST PA+LAT INDICATION: Fatigue and shortness of breath. TECHNIQUE: PA and lateral views of the chest obtained. COMPARISON EXAM: None FINDINGS: Lungs are clear. ??The heart size and pulmonary vascular caliber is normal. ??Skeletal structures are intact. Procedure Note Trung Diaz MD - 05/08/2024 EXAM: XR CHEST PA+LAT INDICATION: Fatigue and shortness of breath. TECHNIQUE: PA and lateral views of the chest obtained. COMPARISON EXAM: None FINDINGS: Lungs are clear. The heart size and pulmonary vascular caliberis normal. Skeletal structures are intact. IMPRESSION: NORMAL CHEST. Referred By: Interpreted By: Trung Diaz MD, 05/08/2024 10:26 AM [facility]ity [facility] Final Resul t * ECG 12 lead (05/08/2024 10:09 AM CDT) 05/08/2024 10:0 9 AM CDT Narrative [facility] - 05/08/2024 11:29 AM CDT ?[facility] ? [address] [facility] ? Test Date: ?2024-05-08 Pat Name: ? TRAMAINE MARIN ?Department: ?? 41 ? Room: ? EXAM16 Gender: ? Male ? 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 Requested By: CHARITY TRISTAN Order Number: [id number] ? Reading MD: ?? Jason Tapia ? Measurements Intervals ?Dutton ? Rate: ? 76 ? P: ?69 AL: ? 157 ?QRS: ?-27 QRSD: ? 86 ? T: ?44 QT: ? 386 ? QTc: ?436 ? 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 : 1970 Requested By: CHARITY TRISTAN Order Number: [id number] Reading MD: Jason Tapia Measurements Intervals Dutton Rate: 76 P: 69 AL: 157 QRS: -27 QRSD: 86 T: 44 QT: 386 QTc: 436 Interpretive Statements SINUS RHYTHM RSR' In V1 Or V2 Right VCD Or RVH No previous ECG available for comparison Preliminary EKG Interpretation by CLAUDIA Harp Other ischemic changes, not STEMI Charity TAYLOR ECG ORDERABLES Final Resul t Performing Organization Address City/[facility]/ZIP Co de Phone Number [facility] * TROPONIN, QUANT (05/08/2024 10:00 AM CDT) TROPONIN I HIGH SENSITIVITY 4 <79 ng/L 05/08/2024 10:49 AM CDT [facility] Comment: HIGH DOSES OF BIOTIN, TROPONIN-SPECIFIC AUTOANTIBODIES, AND ANTIBODY THERAPY CONTAINING HAMA MAY INTERFERE WITH THIS TEST RESULT. CORRELATION TO CLINICAL HISTORY AND PRESENTATION RECOMMENDED. 05/08/2024 10:0 0 AM CDT [facility] Final Resul t Performing Organization Address City/[facility] Co de Phone Number [facility] [address] [place] [address], [place] [phone] * (ABNORMAL) COMPREHENSIVE METABOLIC PANEL (05/08/2024 10:00 AM CDT) [facility] GLUCOSE 161(H) 70 - 99 MG/DL 05/08/2024 10:49 AM CDT [facility] BUN 9 7 - 18 MG/DL 05/08/2024 10:49 AM CDT [facility] CREATININE S/P/B 0.95 0.7 - 1.3 MG/DL 05/08/2024 10:49 AM CDT [facility] SODIUM S/P/B 140 136 - 145 MMOL/L 05/08/2024 10:49 AM CDT [facility] POTASSIUM S/P/B 3.6 3.5 - 5.1 MMOL/L 05/08/2024 10:49 AM CDT [facility] CHLORIDE S/P/B 103 100 - 108 MMOL/L 05/08/2024 10:49 AM CDT [facility] CO2 28.2 21 - 32 MMOL/L 05/08/2024 10:49 AM CDT [facility] CALCIUM S/P/B 9.2 8.5 - 10.1 MG/DL 05/08/2024 10:49 AM CDT [facility] BILIRUBIN TOTAL S/P/B 1.3(H) 0.2 - 1.2 MG/DL 05/08/2024 10:49 AM CDT [facility] Comment: THIS ASSAY IS NOT RECOMMENDED FOR PATIENTS UNDERGOING TREATMENT WITH ELTROMBOPAG DUE TO THE POTENTIAL FOR FALSELY ELEVATED RESULTS. TOTAL PROTEIN S/P/B 7.4 6.4 - 8.2 G/DL 05/08/2024 10:49 AM CDT [facility] ALBUMIN S/P/B 3.7 3.4 - 5.0 G/DL 05/08/2024 10:49 AM CDT [facility] AST 17 15 - 37 U/L 05/08/2024 10:49 AM CDT [facility] ALT 22 16 - 60 U/L 05/08/2024 10:49 AM CDT [facility] ALKALINE PHOSPHATASE S/P/B 81 50 - 136 U/L 05/08/2024 10:49 AM CDT [facility] ANION GAP 8.8 5 - 15 MMOL/L 05/08/2024 10:49 AM CDT [facility] BUN CREATININE RATIO 9.5 6 - 26 05/08/2024 10:49 AM CDT [facility] A/G RATIO 1.0 1.0 - 2.0 RATIO 05/08/2024 10:49 AM CDT [facility] GFR ESTIMATE >90 >90 ML/MIN/1.7 3 M2 05/08/2024 10:49 AM CDT [facility] Comment: NOTE: eGFR is not calculated for patients <18 years of age. This is an estimated GFR calculation using the new CKD EPI creatinine equation without race and so does not require a correction factor for race. This estimated GFR should not be used for calculating drug doses. 05/08/2024 10:0 0 AM CDT us [facility]ity [facility] Final Resul t [facility] [address] [place] [address], * (ABNORMAL) CBC W/DIFF AUTOMATED (05/08/2024 10:00 AM CDT) WBC 10.76 4.5 - 11.0 x10'3/uL 05/08/2024 10:24 AM CDT [facility] RBC 5.29 4.70 - 6.10 x10'6/uL 05/08/2024 10:24 AM CDT [facility] HGB 15.8 14.0 - 18.0 G/DL 05/08/2024 10:24 AM CDT [facility] HCT 47.2 43.0 - 54.0 % 05/08/2024 10:24 AM CDT [facility] MCV 89.2 80.0 - 94.0 FL 05/08/2024 10:24 AM CDT [facility] MCH 29.9 27.0 - 31.0 PG 05/08/2024 10:24 AM CDT [facility] MCHC 33.5 32.0 - 36.0 G/DL 05/08/2024 10:24 AM CDT [facility] RDW 13.3 11.5 - 14.5 % 05/08/2024 10:24 AM CDT [facility] PLT 177 130 - 400 x10'3/uL 05/08/2024 10:24 AM CDT [facility] MPV 11.4 9.3 - 12.2 FL 05/08/2024 10:24 AM CDT [facility] DIFFERENTIAL TYPE AUTOMATED DIFFERENTIAL 05/08/2024 10:24 AM CDT [facility] NEUTROPHILS % 72.7 % 05/08/2024 10:24 AM CDT [facility] LYMPHOCYTES % 18.4 % 05/08/2024 10:24 AM CDT [facility] MONOCYTES % 6.7 % 05/08/2024 10:24 AM CDT [facility] EOSINOPHILS 1.3 % 05/08/2024 10:24 AM CDT [facility] BASOPHILS 0.5 % 05/08/2024 10:24 AM CDT [facility] IMMATURE GRANS % 0.4 % 05/08/20 10:24 AM CDT [facility] ABS. NEUTROPHILS 7.83(H) 1.80 - 7.70 x10'3/uL 05/08/2024 10:24 AM CDT [facility] ABS. LYMPHOCYTES 1.98 1.00 - 4.80 x10'3/uL 05/08/2024 10:24 AM CDT [facility] ABS. MONOCYTES 0.72 0.30 - 0.82 x10'3/uL 05/08/2024 10:24 AM CDT [facility] ABS. EOSINOPHILS 0.14 0.04 - 0.54 x10'3/uL 05/08/2024 10:24 AM CDT [facility] ABS. BASOPHILS 0.05 0.01 - 0.08 x10'3/uL 05/08/2024 10:24 AM CDT [facility] ABS. IMMATURE GRANULOCYTES 0.04 0.00 - 0.49 x10'3/uL 05/08/2024 10:24 AM CDT [facility] 05/08/2024 10:0 0 AM CDT [facility] Final Resul t [facility] [address] [place] [address], documented in this encounter Visit Diagnoses Diagnosis Shortness of breath- Primary Fatigue Other malaise and fatigue documented in this encounter Administered Medications Inactive Administered Medications - up to 3 most recent administrations Medication Order MAR Action Action Date Dose Rate Site sodium chloride 0.9% bolus infusion 1,000 mL 1,000 mL, Intravenous, Administer over 30 Minutes, Once, 1 dose, On Mon05/08/24 at 1000 New Bag 05/08/2024 10:03 AM CDT 1,000 mLs 2000 mL/hr documented in this encounter Active and Recently Administered Medications Times are shown in CDT. Scheduled Medication Order 05/06/2024 05/07/2024 05/08/2024 sodium chloride 0.9% bolus infusion 1,000 mL (COMPLETED) 1,000 mL, Intravenous, Administer over 30 Minutes, Once, 1 dose, On Mon05/08/24 at 1000 1003 (New Bag - Prov ider: Mee Ortega, DEXTER)1033 (Infusion Stop Time - Provider: Ilya Cruz RN) documented in this encounter Care Teams Commodity Trader Relationship Specialty Start Date End Date Genet De La Fuente MD [address] [address] PCP - General FAMILY PRACTICE 05/08/24 documented as of this encounter
--- OUTSIDE RECORDS SUMMARY | 2024-09-25 06:40 | XMS_ITS | Encounter Summary ---
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] Procedures ME ARTHRODESIS COMBINED TQ 1NTRSPC LUMBAR ME ARTHRODESIS CMBN TQ 1NTRSPC EACH ADDITIONAL ME POSTERIOR SEGMENTAL INSTRUMENTATION 3-6 VRT SEG ME INSJ BIOMCHN DEV INTERVERTEBRAL DSC SPC W/ARTHRD ME AUTOGRAFT SPINE SURGERY LOCAL FROM SAME INCISION L3-5 Decompressive Laminectomy, Posterior Lumbar Interbody Fusion using Zavation EZ Span Cage, Mahtew Screws, Local Autograph and L4-5 Repeat Discectomy Kevin Brody MD [address] [facility] [address] [place] [address] Phone: tel: fax: Referral ID Status Reason Start Date Expiration Date Visits Re quested Visits Authorized [id number] 07/11/2024 1 1 Encounter Details Date Type Department Care Team (Late st Contact Info) Description 08/13/2024 7:26 AM LITHARGE MILL OPERATOR Anesthesia Event [facility] Operating Room [address] [place] [id number] Jason Christianson MD [address] [place] [address] Ara Robbins, [place] [address] [place] [address] Anesthesia Record Procedure Summary Procedure Name Responsible [...] No value filed. 1148 An Stop Meds Name Total midazolam 2 mg fentaNYL 100 mcg lidocaine (CARDIAC) syringe 2 % 5 mL propofol 150 mg propofol 1,283.5 mg rocuronium 60 mg phenylephrine 100 mcg/mL 300 mcg ondansetron 4 mg dexamethasone 4 mg/ml 8 mg ketamine 50 mg/5 mL (10 mg/mL) in NS 30 mg vancomycin 1500 mg/250 mL in sodium chlo ride 0.9% (premix) 1,500 mg 0 mg lidocaine infusion 8 mg/mL D5W (premix) 582.65 mg HYDROmorphone 2 mg/mL 2 mg dexmedeTOMIDine 24 mcg sugammadex 200 mg sodium chloride 0.9% infusion 1,000 mL * Agents Name O2% N2O O2 N2O Air Sevoflurane Inspired Sevoflurane * Blood No blood administrations on file. [...] Peripheral IV Placement Date: 08/13/24; Placement Time: 0741; Orientation: Right; Location: Hand; Site Prep: Chlorhexidine; Technique: Anatomical landmarks; Inserted by: Dr Christianson; Insertion Attempts: 1; Removal Date: 08/14/24; Removal Time: 1245; Removal Reason: Discharge 08/13/24 0741 by Naomi Galvan, SECONDS HANDLER 08/14/24 1245 by Arin Cortez RN Urethral Catheter Placement Date: 08/13/24; Placement Time: 0742; Inserted by: IRMA Dougherty; Type: Double-lumen, Non-latex; Balloon Size: 10 mL; Urine Returned: Yes; Removal Date: 08/14/24; Removal Time: 0708/13/24 0742 by El Diego RN 08/14/24 0727 [...] Time: 1143 08/13/24 0801 by Naomi Galvan, SECONDS HANDLER 08/13/24 1143 by Jason Christianson MD Wound 08/13/24; 0808; N; Incision; Back; Lower; 09/19/24; 1120; Removal date unknown 08/13/24 0808 by El Diego RN 09/19/24 1120 by Kelly Shepard RN Closed/Suction/Open Drain 08/13/24; 1107; 1; Inferior, Midline; [...] on file Legal Sex Male 6:34 PM LITHARGE MILL OPERATOR Gender Identity Not on file Sexual Orientation Not on file 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.062]) Surgeons: Kevin Brody MD Responsible Provider: Jason Christianson MD Anesthesia Type: general ASA Status: 2 Anesthesia Type: general Last vitals BP 129/78 Pulse 98 Temp 36.8 ??C (98.3 ??F) (Temporal) Resp 17 SpO2 93% Anesthesia Post Evaluation Patient location during evaluation: PACU Patient participation: complete - patient participated Level of consciousness: follows simple commands and fully awake Pain management: adequate Airway patency: adequate Cardiovascular status: acceptable and hemodynamically stable Respiratory status: acceptable Hydration status: acceptable Pt is: normothermic Nausea/Vomiting status: none No notable events documented. ARGE MILL OPERATOR * Anesthesia Procedure Notes - Naomi Galvan CRNA - 08/13/2024 7:59 AM CSTAssociated Order(s): Airway Airway Patient location: OR Urgency: elective Indications for airway management: anesthesia Difficult airway: no Staff: Supervising provider: Jason Christianson MD Placed by: SECONDS HANDLER: Naomi Galvan CRNA Emergent airway documentation: Risks [...] with: silk tape Number of attempts: 1 ARGE MILL OPERATOR * Anesthesia Preprocedure Evaluation - Jason Christianson MD - 07/23/2024 9:19 AM CDT Images from the original note were not included. Anesthesia Evaluation Tramaine Marin is a 53 y.o. male presenting for [facility] preoperative anesthesia evaluation prior to L3-5 Decompressive Laminectomy, Posterior Lumbar Interbody Fusion using Zavation EZ Span Cage, Mathew Screws, Local Autograph and L4-5 Repeat Discectomy scheduled on 08/13/[address] Brody, Kevin Pena MD. 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 The patient presents with worsening pain across his lower back with radiation into his leftleg and foot. He continues to have heaviness to the left foot. The pain is exacerbated by standing and walking. He has failed conservative treatments. He wishes to proceed with surgical intervention. Past Medical History Information obtained from: patient and chart. Information obtained during: In Person Neurological Pertinent negatives: CVA/stroke and TIA Comments: Prior hx alcohol and drug abuse; sober 6 years. 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 Dyspnea frequency: 2 days/week or less. Rescue inhaler use: never. Hospitalizations/ER in the last year: 0. Most recent exacerbation: 0. FEV1 % predicted: 66%. + Current smoker - Counseled to abstain from smoking the day of surgery. Pertinent negatives: no history of oral steriod use and no prior intubation for respiratory failure Comments: Patient states he has not been formally diagnosed with COPD, but it is in medical recordsbased on heavy smoking hx. PFT 2021. Hepatic / Heme Hepatic/Heme system: negative Gastrointestinal GI system: negative Renal / Renal disease: Hx kidney stones. Musculoskeletal/Pain + Chronic pain - neck pain and back pain. + Osteoarthritis Endocrine / Other Pertinent negatives: diabetes mellitus and thyroid disease Functional Capacity Functional capacity: 4-6 METs Comments: Physical job Review of Systems + productive cough (chronic smoker cough) + chronic pain + chipped/loose teeth (missing) Pertinent negatives: SOB; recent cold/flu; fever; chest pain; palpitations; hard of hearing; heartburn; nausea; dysphagia; diarrhea; dentures/partials and abdominal painVision loss: reading glasses. Patient Active Problem List Diagnosis Date Noted Emphysema lung (HCC) 07/23/2024 Tobacco use 07/23/2024 Past Medical History: Diagnosis Date Cervical spondylosis Degenerative disc disease, lumbar Hypertension Kidney stone Lumbar spondylosis Past Surgical History: Procedure Laterality Date ANTERIOR CERVICAL DISCECTOMY W/ FUSION 2021 EYE SURGERY Bilateral as young child MICRODISCECTOMY LUMBAR 2018 Allergies Allergen Reactions Sudafed [Pseudoephedrine] Other (See comments) Socket Mobile Med List Status: Nurse Complete Set By: Jewels Faust RN at 07/23/2024 9:23 AM Taking? Last Dose Start Date End Date Provider HYDROcodone-acetaminophen (NORCO) 7.5-325 mg per tablet -- 02/25/22 -- Yony Ace MD ibuprofen (ADVIL,MOTRIN) 800 mg tablet -- 02/25/22 -- Yony Ace MD TiZANidine (ZANAFLEX) 4 mg capsule -- -- -- Yony Ace MD Current Outpatient Medications: HYDROcodone-acetaminophen (NORCO) 7.5-325 mg per tablet ibuprofen (ADVIL,MOTRIN) 800 mg tablet TiZANidine (ZANAFLEX) 4 mg capsule Social History Tobacco Use Smoking Status Every Day Current packs/day: 0.20 Average packs/day: 0.2 packs/day for 20.0 years (4.0 ttl pk-yrs) Types: Cigarettes Smokeless Tobacco Never Alcohol Use: Not At Risk (07/23/2024) AUDIT-C Frequency of Alcohol Consumption: Never Average Number of Drinks: Patient does not drink Frequency of Binge Drinking: Not on file Substance and Sexual Activity Drug Use Yes Types: Cocaine, Marijuana Comment: marijuana occassionally, no longer does cocaine Family History Problem Relation Age of Onset Arthritis Mother Hypertension Mother Diabetes Father Lung disease Father Cancer Father Hypertension Father Hyperlipidemia Father PAT Physical Exam Airway Exam: Mallampati: II Cervical ROM: FROM Patient presents with meehan. Cardiovascular Exam: Rate: regular Rhythm: regular Pulmonary Exam: Coarse lungs, bilat EENT Exam: trachea midline Dental Exam: Missing and poor dentition Skin Exam: Skin is warm and dry. Abdominal exam: Abdomen is soft. Bowel sounds are present. Current state: Patient's current state is cooperative and interactive. Vitals: 07/23/24 0925 BP: 137/69 Pulse: 73 SpO2: 98% STOP-Bang Total Score: 2 Hillman Activity Status Index Score: 45 Lab Studies: CBC Lab Results Component Value Date WBC 8.6 07/23/2024 HGB 15.7 07/23/2024 HCT 47.5 07/23/2024 LABPLAT 184 07/23/2024 MPV 11.6 07/23/2024 RBC 5.27 07/23/2024 MCV 90.1 07/23/2024 MCH 29.8 07/23/2024 MCHC 33.1 07/23/2024 RDWCV 12.9 07/23/2024 RDWSD 42.5 07/23/2024 NRBCABS 0.00 07/23/2024 Type & Screen Lab Results Component Value Date ABORH O Positive 07/23/2024 IDCOOMB Negative 07/23/2024 A1C Lab Results Component Value Date HGBA1C 5.7 (H) 07/23/2024 Vitamin D Lab Results Component Value Date 25HYDROVITD 38 07/23/2024 EKG Results (past 7days) Procedure Component Value Units Date/Time ECG 12 lead [[id number]] Resulted: 07/30/24 1022 Order Status: Completed Updated: 07/30/24 1105 Anesthesia History: Denies personal hx of problems with anesthesia. Denies family hx of problems with anesthesia. Assessment & Plan: Tramaine Marin Jr. is a 53 y.o. male with no clinical risk factors per ACC/AHA guidelines with moderate functional capacity for an intermediate risk procedure. Indicated lab/diagnostic studies were ordered per anesthesia guidelines and results reviewed. The patient received education regarding the pre-operative and post-operative period, including instructions on using the surgical scrub kit the night prior to surgery and the morning of surgery to decrease the risk of infection. The patient was instructed to call their surgeon should they develop an infection prior to surgery. The patient verbalized understanding of the education received and was allowed to ask questions as needed. A paper copy of the instructions was provided to the patient. Cardiac clearance obtained from Dr. Smith's office on 07/30/2024. Clearance from office visit note highlighted and placed in chart. SEC evaluation complete on 07/30/24 at 2:39 PM. DOS Physical Exam Medical history, medications, and allergies reviewed. Attestation: With today's edits, I endorse the findings of the anesthesia pre-evaluation assessment dated: 07/23/2024. Airway Exam: Mallampati: II Cervical ROM: FROM TM distance: >4 Cardiovascular Exam: Rate: regular Rhythm: regular Pulmonary Exam: LCTA, bilat Dental Exam: Otherwise appears intact Current state: Patient's current state is cooperative and interactive. Anesthesia Plan ASA 2 My patient is approved for the Anesthesia Controlled Medication protocol when under care of a SECONDS HANDLER Planned anesthesia: General Team communication plan: oral ET tube Induction: Induction: intravenous. Postoperative Plan: No postoperative mechanical ventilation intended. Patient's planned disposition post procedure is Outpatient. Informed Consent: Discussed plan with SECONDS HANDLER. Anesthesia plan and risks discussed with patient. Consent and Attending signature: I and/or my designee have discussed the anesthesia plan, benefits, possible alternatives, parental presence at time of induction (if indicated), and clinically relevant risks that may include dental injury, unintentional awareness, and/or other complications. The patient and/or parent/legal guardian understand, and agree to proceed. All questions answered. ARGE MILL OPERATOR ARGE MILL OPERATOR documented in this encounter Plan of Treatment Not on file documented as of this encounter Procedures Procedure Name Priority Date/Time Associated Diagnosis Comments ME AN PROCEDURE PLACEHOLDER Routine 08/13/2024 7:59 AM LITHARGE MILL OPERATOR ME AN ELECTIVE ENDOTRACHEAL AIRWAY Routine 08/13/2024 7:59 AM LITHARGE MILL OPERATOR documented in this encounter Results * ME AN ELECTIVE ENDOTRACHEAL AIRWAY, ME AN PROCEDURE PLACEHOLDER (08/13/2024 7:59 AM LITHARGE MILL OPERATOR) Narrative Naomi Galvan CRNA - 08/13/2024 7:59 AM LITHARGE MILL OPERATOR Naomi Galvan CRNA ? 08/13/2024 ??8:01 AM Airway Patient location: OR Urgency: elective Indications for airway management: anesthesia Difficult airway: no Staff: Supervising provider: Jason Christianson MD Placed by: SECONDS HANDLER: Naomi Galvan CRNA Emergent airway documentation: Risks [...] Jason Christianson MD ANESTHESIA ORDERABLES Final Result documented in this encounter Visit Diagnoses Not on filedocumented in this encounter Administered Medications Inactive Administered Medications - up to 3 most recent administrations Medication Order MAR Action Action Date Dose Rate Site dexAMETHasone (DECADRON) 4 mg/mL injection intravenous, Administer over 2 Minutes, As needed, Starting on Mon08/13/24 at 0750, Anesthesia Intra-op Given 08/13/2024 7:50 AM LITHARGE MILL OPERATOR 8 mg dexmedeTOMIDine (PRECEDEX) injection intravenous, As needed, Starting on Mon08/13/24 at 1014, Anesthesia Intra-op Given 08/13/2024 11:16 AM LITHARGE MILL OPERATOR 8 mcg Given 08/13/2024 10:36 AM LITHARGE MILL OPERATOR 8 mcg Given 08/13/2024 10:14 AM LITHARGE MILL OPERATOR 8 mcg fentaNYL (SUBLIMAZE) preservative free injection intravenous, As needed, Starting on Mon08/13/24 at 0730, Anesthesia Intra-op Given 08/13/2024 8:03 AM LITHARGE MILL OPERATOR 50 mcg Given 08/13/2024 7:30 AM LITHARGE MILL OPERATOR 50 mcg HYDROmorphone (DILAUDID) injection intravenous, Administer over 2 Minutes, As needed, Starting on Mon08/13/24 at 0920, Anesthesia Intra-op Given 08/13/2024 11:18 AM LITHARGE MILL OPERATOR 0.4 mg Given 08/13/2024 11:14 AM LITHARGE MILL OPERATOR 0.4 mg Given 08/13/2024 10:22 AM LITHARGE MILL OPERATOR 0.4 mg ketamine (KETALAR) 50 mg/5 mL (10 mg/mL) in sodium chloride 0.9% (premix) intravenous, As needed, Starting on Mon08/13/24 at 0753, Anesthesia Intra-op Given 08/13/2024 10:02 AM LITHARGE MILL OPERATOR 10 mg Given 08/13/2024 9:08 AM LITHARGE MILL OPERATOR 10 mg Given 08/13/2024 7:53 AM LITHARGE MILL OPERATOR 10 mg lidocaine (cardiac) (XYLOCAINE) preservative free injection intravenous, As needed, Starting on Mon08/13/24 at 0734, Anesthesia Intra-op, Indications: Ventricular ArrhythmiasIndications:Ve ntricular Arrhythmias Given 08/13/2024 7:34 AM LITHARGE MILL OPERATOR 5 mL lidocaine in dextrose 5% 2 g/250 mL (8 mg/mL) infusion (premix) intravenous, Continuous PRN, Starting on Mon08/13/24 at 0752, Anesthesia Intra-op Rate/Dose Change 08/13/2024 11:05 AM LITHARGE MILL OPERATOR 1.5 mg/kg/hr 14.55 mL/hr New Bag 08/13/2024 7:52 AM LITHARGE MILL OPERATOR 2 mg/kg/hr 19.4 mL/hr midazolam (VERSED) 1 mg/mL preservative free injection intravenous, Administer over 2 Minutes, As needed, Starting on Mon08/13/24 at 0726, Anesthesia Intra-op Given 08/13/2024 7:26 AM LITHARGE MILL OPERATOR 2 mg ondansetron (ZOFRAN) injection intravenous, Administer over 2 Minutes, As needed, Starting on Mon08/13/24 at 1100, Anesthesia Intra-op Given 08/13/2024 11:00 AM LITHARGE MILL OPERATOR 4 mg phenylephrine (ADRIANA-SYNEPHRINE) 1 mg/10 mL (100 mcg/mL) in sodium chloride 0.9% (premix) intravenous, As needed, Starting on Mon08/13/24 at 0758, Anesthesia Intra-op Given 08/13/2024 8:41 AM LITHARGE MILL OPERATOR 100 mc g Given 08/13/2024 7:58 AM LITHARGE MILL OPERATOR 200 mcg propofoL (DIPRIVAN) 10 mg/mL IV intravenous, As needed, Starting on Mon08/13/24 at 0734, Anesthesia Intra-op Given 08/13/2024 7:34 AM LITHARGE MILL OPERATOR 150 mg propofoL (DIPRIVAN) 10 mg/mL IV intravenous, Continuous PRN, Starting on Mon08/13/24 at 0745, Anesthesia Intra-op New Bag 08/13/2024 9:47 AM LITHARGE MILL OPERATOR 75 mcg/kg/min 37.305 mL/hr Given 08/13/2024 8:07 AM LITHARGE MILL OPERATOR 40 mg New Bag 08/13/2024 7:45 AM LITHARGE MILL OPERATOR 75 mcg/kg/min 37.305 mL/ hr rocuronium (ZEMURON) injection intravenous, As needed, Starting on Mon08/13/24 at 0735, Anesthesia Intra-op Given 08/13/2024 8:07 AM LITHARGE MILL OPERATOR 10 mg Given 08/13/2024 7:35 AM LITHARGE MILL OPERATOR 50 mg sodium chloride 0.9% infusion 30 mL/hr, intravenous, Continuous, Starting on Mon08/13/24 at 0645 New Bag 08/13/2024 9:55 AM LITHARGE MILL OPERATOR Rate/Dose Verify 08/13/2024 7:26 AM LITHARGE MILL OPERATOR 30 mL/h r New Bag 08/13/2024 7:11 AM LITHARGE MILL OPERATOR 30 mL/hr 30 mL/hr sugammadex (BRIDION) 100 mg/mL intravenous solution intravenous, As needed, Starting on Mon08/13/24 at 1142, Anesthesia Intra-op Given 08/13/2024 11:42 AM LITHARGE MILL OPERATOR 200 m g documented in this encounter Care Teams Sole Stapler Welt Relationship Specialty Start Date End Date Elton De La Fuente MD PCP - General Family Medicine 06/02/21 documented as of this encounter
--- OUTSIDE RECORDS SUMMARY | 2024-09-25 06:40 | XMS_ITS | Encounter Summary ---
Author Organization [facility] Address [address] [place] [address]. [place] [address] [place] [address] Care Team Providers Care Supervisor Coal Handling Name Role Phone Unavailable Primary Care Provider Unavailabl e Encounter Details Date Type Department Care Team (Late st Contact Info) Description 02/07/1998 [place] [address] , Generic Conversion, Social History Tobacco Use Types Packs/Day Years [...]
--- OUTSIDE RECORDS SUMMARY | 2024-09-25 06:40 | XMS_ITS | Encounter Summary ---
Author Organization [facility] Healthcare Address [address] [place] [address] Care Team Providers Care Gis Developer Name Role Phone Elton De La Fuente MD Primary Care Provider [phone] Encounter Details Date Type Department Care Team (Late st Contact Info) Description 08/13/2024 Orders Only 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 Not on file Not on file Not on file documented as of this encounter Plan of Treatment Not on file documented as of this encounter Procedures Procedure Name Priority Date/Time Associated Diagnosis Comments SURGICAL PATHOLOGY Routine 08/13/2024 11 :16 AM THERAPEUTIC MASSAGE TECHNICIAN documented in this encounter Results * Surgical pathology (08/13/2024 11:16 AM THERAPEUTIC MASSAGE TECHNICIAN) Disc, intervertebral 024 11:16 AM THERAPEUTIC MASSAGE TECHNICIAN 08/13/2024 1:53 PM THERAPEUTIC MASSAGE TECHNICIAN Narrative 08/14/2024 2:09 PM THERAPEUTIC MASSAGE TECHNICIAN [address] ??[id number] Tele: ?? Batsheva Ji MD - Open Hearth Furnace Operator Note to Patients: This report may contain [...] SURGICAL PATHOLOGY REPORT Patient Name: ??TRAMAINE MARINChristopher Christopher Address: ??[address] [place] [address] ??[address] Gender: ??M : ??1970 (Age: 53) Service: ??Ortho Location: ??[id number], ?? Hospital #: ??[id number] Patient Type: ??MBC OP IN BED Accession #: ? [id number] Taken: ? 08/13/2024 Received ? 08/13/2024 Reported: [...] x 3.5 x 0.6 cm in aggregate Social Welfare Clerk sections are submitted in cassette labeled A1. ?? [facility] MICROSCOPIC DESCRIPTION: Microscopic examination supports the above captioned diagnosis. This case was signed out at [facility], [address] [place] [address]. Clerical Data Follows A; [id number] REPORT IMAGES AND/OR SCANNED DOCUMENTS ONLY VIEWABLE IN PDF FORMAT The immunohistochemical test(s) cited in this report, if any, was developed and its performance characteristics determined by [facility] Pathology Department. ??It has not been cleared or approved by the U.S. Food and Drug Administration. ??The FDA has determined that such clearance or approval is not necessary. ??This test is used for clinical purposes. ??It should not be regarded as investigational or for research. ??[facility] Laboratory is certified under the Clinical [...] part or completely in the following laboratories: [facility], [address] [place] [id number] [place] [address], [address] [place] [id number]. Kevin Brody MD LAB PATHOLOGY ORDERABLES Final Result documented in this encounter Visit Diagnoses Not on filedocumented in this encounter Care Teams Gis Developer Relationship Specialty Start Date End Date Elton De La Fuente MD PCP - General Family Medicine 06/02/21 documented as of this encounter
--- OUTSIDE RECORDS SUMMARY | 2024-09-25 06:40 | XMS_ITS | Encounter Summary ---
Author Organization [facility] Address [address] [place] [address]. [place], [place] [id number] [place] [id number] Care Team Providers Care Student Support Advisor Name Role Phone Unavailable Primary Care Provider Unavailabl e Encounter Details Date Type Department Care Team (Late st Contact Info) Description 02/19/[address] [facility] [address] [place] [address] , Luis Enrique Silva MD Social History Tobacco Use Types Packs/Day Years [...]
--- OUTSIDE RECORDS SUMMARY | 2024-09-25 06:41 | XMS_ITS | Encounter Summary ---
Author Organization [facility] Healthcare Address [address] [place] [address] Care Team Providers Care Engine Dynamometer Tester Name Role Phone Elton De La Fuente MD Primary Care Provider [phone] Reason for Referral * Diagnostic Imaging (Routine) - Closed Specialty Diagnoses / Procedures Referred By Contac t Referred To Contact Diagnoses Right cervical radiculopathy Procedures MRI Cervical Spine WO Contrast Kely Tijerina NP Phone: tel: fax: [address] [phone] Referral ID Status Reason Start Date Expiration Date Visits Re quested Visits Authorized [id number] Closed 10/11/2019 04/21/2021 1 1 OTYPE MODEL MAKER * Diagnostic Imaging (Routine) - Closed Specialty Diagnoses / Procedures Referred By Contac t Referred To Contact Diagnoses Right lumbar radiculopathy Procedures MRI Lumbar Spine WO Contrast Kely Tijerina NP Phone: tel: fax: [address] [phone] Referral ID Status Reason Start Date Expiration Date Visits Re quested Visits Authorized [id number] Closed 10/11/2019 04/21/2021 1 1 OTYPE MODEL MAKER Encounter Details Date Type Department Care Team (Latest Contact Info) Description 10/23/2019 4:10 PM PROTOTYPE MODEL MAKER Hospital Encounter [facility] OP INTERIM Kely Tijerina, PRECISION LENS GENERATOR [address] [place] [address] [place] [address] Right lumbar radiculopathy; Right cervical radiculopathy Social History Tobacco Use Types Packs/Day Years Used Date Smoking Tobacco: Every Day Cigarettes 0.1 20 Alcohol Use Standard Drinks/Week Comments Not Currently 0 (1 standard drink = 0.6 oz pur e alcohol) Recovering alcoholic-whiskey Sex and Gender Information Value Date Recorded Sex Assigned at Not on file Legal Sex Male 6:34 PM PROTOTYPE MODEL MAKER Gender Identity Not on file Sexual Orientation Not on file 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 09/21/2019 06/02/2021 documented as of this encounter Plan of Treatment Not on file documented as of this encounter Procedures Procedure Name Priority Date/Time Associated Diagnosis Comments MRI LUMBAR SPINE WO CONTRAST Schedule Routine, Read Routine (OP Routine) 10/23/2019 6:20 AM PROTOTYPE MODEL MAKER Right lumbar radiculopathy MRI CERVICAL SPINE WO CONTRAST Schedule Routine, Read Routine (OP Routine) 10/23/2019 6:20 AM PROTOTYPE MODEL MAKER Right cervical radiculopathy documented in this encounter Results * MRI Cervical Spine WO Contrast (10/23/2019 6:20 AM PROTOTYPE MODEL MAKER) Anatomical Region Laterality Modality Spine N/A Magnetic Resonan ce 10/24/2019 11:4 1 AM PROTOTYPE MODEL MAKER Narrative 10/24/2019 11:53 AM PROTOTYPE MODEL MAKER Patient Name: TRAMAINE MARIN ?Ordering Dr: Kely Tijerina ?? D.O.B: 1970 ? Exam Date: 10/23/19 ?? 0620 ?? Age: 48 ?Sex: Male ? MR#: [id number] ?? Loc: ? RADIOLOGY REPORT ?? Order #[id number] ?? Magnetic Resonance Imaging ? MRI Cervical ? Signed ? EXAM DESCRIPTION: ??MRI Cervical ? REASON FOR STUDY: ??Neck pain 2 years. No injury. ? TECHNIQUE: ??Sagittal and Axial imaging includes T1, T2, STIR and gradient echo ?? sequences. ? COMPARISON: ??Cervical spine radiographs dated 10/11/2019 ? FINDINGS: ? ALIGNMENT: There is reversal of the normal cervical lordosis. ? VERTEBRAE: The cervical vertebral body heights are maintained. ??Minor endplate ?? degenerative changes and marginal spurring at C5-C6 and to lesser extent at ?? C4-C5 and C6-C7. ? DISCS: Gpbk-fy-xjeybnvx disc desiccation and height loss at C5-C6 and to ?? lesser extent at C6-C7. ? HARDWARE: None in the spine. ? CORD: Cervical cord signal is within normal limits. ? INDIVIDUAL LEVELS: ? C2-C3: No significant disc bulge, spinal canal or neural foraminal narrowing. ? C3-C4: No significant disc bulge, spinal canal or neural foraminal narrowing. ? C4-C5: No significant disc bulge, spinal canal or left neural foraminal ?? narrowing. ??Uncovertebral spurring and facet arthropathy resulting in moderate ?? right neural foraminal narrowing. ? C5-C6: Posterior disc osteophyte complex indents the ventral thecal sac, no ?? significant spinal canal narrowing. ??Uncovertebral spurring and facet ?? arthropathy resulting in lccn-yd-powfdnoi left and moderate to severe right ?? neural foraminal narrowing. ? C6-C7: Posterior disc protrusion eccentric to the right indents the ventral ?? thecal sac, spinal canal remains patent. ??Uncovertebral spurring and facet ?? arthropathy resulting in mild right and no significant left neural foraminal ?? narrowing. ? C7-T1: No significant disc bulge, spinal canal or neural foraminal narrowing. ? UPPER THORACIC: Incompletely imaged. No significant spinal canal narrowing. ? OTHER: Partially visualized extensive opacification of the paranasal sinuses ?? including bilateral maxillary sinuses and ethmoid air cells. ? IMPRESSION: ? 1. ??Multilevel cervical spondylotic changes as above. ??No high-grade spinal ?? canal narrowing. ? 2. ??The multilevel neural foraminal narrowing, most noticeable on the right at ?? C5-C6 where there is moderate to severe stenosis. ? 3. ??Additional findings as above. ? THIS IS AN ELECTRONICALLY VERIFIED FINAL REPORT ?? 10/24/2019 11:53 AM - Electronically signed by Berto Panchal D.O. ?? Berto Panchal D.O. ? AP: AP ?? D: ??10/24/2019 11:53 AM ?? T: ??10/24/2019 11:53 AM ? Report ID: [id number] ?? Reading Location: ??[id number] ? REPORT ELECTRONICALLY SIGNED IN OTHER VENDOR SYSTEM ?? Resulting Agency Comment O Procedure Note Berto Panchal DO - 10/24/2019 Patient Name: TRAMAINE MARIN Dr: Kely Tijerina D.O.B: 1970 Exam Date: 10/23/19619 Age: 48 Sex: Male MR#: [id number] Loc: RADIOLOGY REPORT Order #[id number] Magnetic Resonance Imaging MRI Cervical Signed EXAM DESCRIPTION: MRI Cervical REASON FOR STUDY: Neck pain 2 years. No injury. TECHNIQUE: Sagittal and Axial imaging includes T1, T2, STIR and gradientecho sequences. COMPARISON: Cervical spine radiographs dated 10/11/2019 FINDINGS: ALIGNMENT: There is reversal of the normal cervical lordosis. VERTEBRAE: The cervical vertebral body heights are maintained. Minorendplate degenerative changes and marginal spurring at C5-C6 and to lesser extentat C4-C5 and C6-C7. DISCS: Neao-hf-guhhfrrd disc desiccation and height loss at C5-C6 and to lesser extent at C6-C7. HARDWARE: None in the spine. CORD: Cervical cord signal is within normal limits. INDIVIDUAL LEVELS: C2-C3: No significant disc bulge, spinal canal or neural foraminalnarrowing. C3-C4: No significant disc bulge, spinal canal or neural foraminalnarrowing. C4-C5: No significant disc bulge, spinal canal or left neural foraminal narrowing. Uncovertebral spurring and facet arthropathy resulting inmoderate right neural foraminal narrowing. C5-C6: Posterior disc osteophyte complex indents the ventral thecal sac,no significant spinal canal narrowing. Uncovertebral spurring and facet arthropathy resulting in mcza-bp-hwljiykf left and moderate to severeright neural foraminal narrowing. C6-C7: Posterior disc protrusion eccentric to the right indents theventral thecal sac, spinal canal remains patent. Uncovertebral spurring andfacet arthropathy resulting in mild right and no significant left neuralforaminal narrowing. C7-T1: No significant disc bulge, spinal canal or neural foraminalnarrowing. UPPER THORACIC: Incompletely imaged. No significant spinal canalnarrowing. OTHER: Partially visualized extensive opacification of the paranasalsinuses including bilateral maxillary sinuses and ethmoid air cells. IMPRESSION: 1. Multilevel cervical spondylotic changes as above. No high-gradespinal canal narrowing. 2. The multilevel neural foraminal narrowing, most noticeable on theright at C5-C6 where there is moderate to severe stenosis. 3. Additional findings as above. THIS IS AN ELECTRONICALLY VERIFIED FINAL REPORT 10/24/2019 11:53 AM - Electronically signed by Berto Panchal D.O. AP: CARMINA Report ID: [id number] Reading Location: [place] [address] REPORT ELECTRONICALLY SIGNED IN OTHER VENDOR SYSTEM us Kely Tijerina PRECISION LENS GENERATOR IMG MRI PROCEDURES Final Re sult * MRI Lumbar Spine WO Contrast (10/23/2019 6:20 AM PROTOTYPE MODEL MAKER) Anatomical Region Laterality Modality Spine N/A Magnetic Resonan ce 10/24/2019 9:48 AM PROTOTYPE MODEL MAKER Narrative 10/24/2019 10:02 AM PROTOTYPE MODEL MAKER Patient Name: TRAMAINE MARIN JR ?Ordering : Kely Tijerina ANP ?? D.O.B: 1970 ? Exam Date: 01/29/20 ?? 0620 ?? Age: 48 ?Sex: Male ? MR#: [id number] ?? Loc: ? RADIOLOGY REPORT ?? Order #[id number] ?? Magnetic Resonance Imaging ? MRI Lumbar ? Signed ? EXAM DESCRIPTION: ??MRI Lumbar ? REASON FOR STUDY: ??Low back pain radiates down right leg 2 years. No injury. ? TECHNIQUE: ?? Sagittal and Axial imaging includes T1, T2, STIR sequences. ? COMPARISON: ??Lumbar spine radiographs dated 09/11/[address] abdomen and ?? pelvis dated 04/28/2016 ? FINDINGS: ? SEGMENTATION: In keeping with the nomenclature used on the previous lumbar ?? spine radiographs of 09/11/2019 disc space seen on series 7 image 7 will be ?? labeled L5-S1. ? ALIGNMENT: In this system of nomenclature, there is 1-2 mm of retrolisthesis ?? of L2 on L3, L3 on L4 and less than 1 mm retrolisthesis of L4 on L5. ? VERTEBRAE: Minor physiologic wedging of T12 and L1. ??There is no acute ?? compression fracture in the lumbar spine. ??Minor multilevel endplate ?? degenerative changes. ??Marginal spurring is most noticeable at L3-L4 and to ?? lesser extent L2-L3 and L4-L5. ??Mid to lower lumbar predominant facet ?? arthropathy. ? DISC HEIGHT: Relative preservation of the L5-S1 disc height. ??At the remainder ?? of the lumbar levels there is diffuse intervertebral disc height loss and disc ?? desiccation, most noticeable at L1-L2 and L4-L5. ? HARDWARE: None in the spine. ? CORD/CAUDA: The conus medullaris terminates at the upper margin of L1. ? INDIVIDUAL DISC LEVELS: ? T12-L1: Mild disc bulge without significant spinal canal or neural foraminal ?? narrowing. ? L1-L2: Circumferential disc bulge and a superimposed central disc protrusion ?? with an annular fissure. ??Thickening of ligamentum flavum and facet ?? arthropathy. ??Spinal canal is mildly narrowed. ??Bilateral foramen are patent. ? L2-L3: Retrolisthesis of L2 on L3. ??Circumferential disc bulge and a ?? superimposed central and left neural foraminal disc protrusion with an annular ?? fissure. ??Thickening of ligamentum flavum and facet arthropathy. ??Moderate ?? spinal canal narrowing. ??There is hlxv-yd-eiftfael right and moderate to ?? severe left neural foraminal narrowing. ??Thickened ligamentum flavum and disc ?? material contacts the exiting left L2 nerve root. ? L3-L4: Retrolisthesis of L3 on L4. ??Circumferential disc bulge and ?? superimposed central disc protrusion with an annular fissure. ??Thickening of ?? ligamentum flavum and facet arthropathy. ??There is vumv-bj-rdikviki spinal ?? canal narrowing. ??Moderate right and left neural foraminal narrowing, right ?? greater than left. ? L4-L5: Retrolisthesis of L4 on L5. ??Circumferential disc bulge and a ?? superimposed central disc protrusion with an annular fissure. ??There is ?? thickening of ligamentum flavum and facet arthropathy. ??Xwlu-uy-zevplihb ?? spinal canal narrowing. ??There is bilateral subarticular zone narrowing, left ?? greater than right. ??Moderate to severe right and pyrh-oj-mzxuanvd left neural ?? foraminal narrowing. ??Mass effect on the exiting right L4 nerve root. ? L5-S1: No significant disc bulge, spinal canal or neural foraminal narrowing. ? There is bilateral facet arthropathy. ? IMPRESSION: ? 1. ??Multilevel moderate lumbar spondylotic changes as described. ??Spinal canal ?? narrowing is most noticeable at L2-L3 where there is at least moderate ?? stenosis. ? 2. ??Multiple levels of bilateral neural foraminal narrowing, most noticeable ?? on the left at L2-L3 and on the right at L4-L5 where there is mass effect on ?? the exiting respective left L2 and right L4 nerve roots. ? 3. ??Additional findings as above. ? THIS IS AN ELECTRONICALLY VERIFIED FINAL REPORT ?? 10/24/2019 10:02 AM - Electronically signed by Berto Panchal D.O. ?? Berto Panchal D.O. ? AP: AP ?? D: ??10/24/2019 10:02 AM ?? T: ??10/24/2019 10:02 AM ? Report ID: [id number] ?? Reading Location: ??[id number] ? REPORT ELECTRONICALLY SIGNED IN OTHER VENDOR SYSTEM ?? Resulting Agency Comment O Procedure Note Berto Panchal, DO - 10/24/2019 Patient Name: TRAMAINE MARIN Thomas Cartagen[address] Dr: Kely Tijerina D.O.B: 1970 Exam Date: 10/23/19619 Age: 48 Sex: Male MR#: [id number] Loc: RADIOLOGY REPORT Order #[id number] Magnetic Resonance Imaging MRI Lumbar Signed EXAM DESCRIPTION: MRI Lumbar REASON FOR STUDY: Low back pain radiates down right leg 2 years. Noinjury. TECHNIQUE: Sagittal and Axial imaging includes T1, T2, STIR sequences. COMPARISON: Lumbar spine radiographs dated 09/11/[address] abdomen and pelvis dated 04/28/2016 FINDINGS: SEGMENTATION: In keeping with the nomenclature used on the previouslumbar spine radiographs of 09/11/2019 disc space seen on series 7 image 7 willbe labeled L5-S1. ALIGNMENT: In this system of nomenclature, there is 1-2 mm ofretrolisthesis of L2 on L3, L3 on L4 and less than 1 mm retrolisthesis of L4 on L5. VERTEBRAE: Minor physiologic wedging of T12 and L1. There is no acute compression fracture in the lumbar spine. Minor multilevel endplate degenerative changes. Marginal spurring is most noticeable at L3-L4 andto lesser extent L2-L3 and L4-L5. Mid to lower lumbar predominant facet arthropathy. DISC HEIGHT: Relative preservation of the L5-S1 disc height. At theremainder of the lumbar levels there is diffuse intervertebral disc height loss anddisc desiccation, most noticeable at L1-L2 and L4-L5. HARDWARE: None in the spine. CORD/CAUDA: The conus medullaris terminates at the upper margin of L1. INDIVIDUAL DISC LEVELS: T12-L1: Mild disc bulge without significant spinal canal or neuralforaminal narrowing. L1-L2: Circumferential disc bulge and a superimposed central discprotrusion with an annular fissure. Thickening of ligamentum flavum and facet arthropathy. Spinal canal is mildly narrowed. Bilateral foramen arepatent. L2-L3: Retrolisthesis of L2 on L3. Circumferential disc bulge and a superimposed central and left neural foraminal disc protrusion with anannular fissure. Thickening of ligamentum flavum and facet arthropathy.Moderate spinal canal narrowing. There is odtr-ee-yohmhgsz right and moderate to severe left neural foraminal narrowing. Thickened ligamentum flavum anddisc material contacts the exiting left L2 nerve root. L3-L4: Retrolisthesis of L3 on L4. Circumferential disc bulge and superimposed central disc protrusion with an annular fissure. Thickeningof ligamentum flavum and facet arthropathy. There is ebjc-wl-mbhzcqiqsjgxfk canal narrowing. Moderate right and left neural foraminal narrowing,right greater than left. L4-L5: Retrolisthesis of L4 on L5. Circumferential disc bulge and a superimposed central disc protrusion with an annular fissure. There is thickening of ligamentum flavum and facet arthropathy. Ilhy-ao-bxnhpuut spinal canal narrowing. There is bilateral subarticular zone narrowing,left greater than right. Moderate to severe right and hbmo-bp-xxmoswai leftneural foraminal narrowing. Mass effect on the exiting right L4 nerve root. L5-S1: No significant disc bulge, spinal canal or neural foraminalnarrowing. There is bilateral facet arthropathy. IMPRESSION: 1. Multilevel moderate lumbar spondylotic changes as described. Spinalcanal narrowing is most noticeable at L2-L3 where there is at least moderate stenosis. 2. Multiple levels of bilateral neural foraminal narrowing, mostnoticeable on the left at L2-L3 and on the right at L4-L5 where there is mass effecton the exiting respective left L2 and right L4 nerve roots. 3. Additional findings as above. THIS IS AN ELECTRONICALLY VERIFIED FINAL REPORT 10/24/2019 10:02 AM - Electronically signed by Berto Panchal D.O. AP: CARMINA Report ID: [id number] Reading Location: [place] [address] REPORT ELECTRONICALLY SIGNED IN OTHER VENDOR SYSTEM Kely Tijerina PRECISION LENS GENERATOR IMG MRI PROCEDURES Final Re sult documented in this encounter Visit Diagnoses Diagnosis Right lumbar radiculopathy Thoracic or lumbosacral neuritis or radiculitis, unspecified Right cervical radiculopathy documented in this encounter Care Teams Engine Dynamometer Tester Relationship Specialty Start Date End Date Elton De La Fuente MD PCP - General Family Medicine 09/04/19 12/03/19 documented as of this encounter
--- OUTSIDE RECORDS SUMMARY | 2024-09-25 06:41 | XMS_ITS | Encounter Summary ---
Author Organization [facility] Healthcare Address [address] [place] [address] Care Team Providers Care Tipple Boss Name Role Phone Kely Tijerina NP Primary Care Provider [phone] Encounter Details Date Type Department Care Team (Late st Contact Info) Description 03/30/2020 1:57 PM CDT - 03/30/2020 6:19 PM CDT Hospital Encounter [facility] Emergency Department [address] [place] [address] Unknown, Keith Johnson PA [facility] [place] [address] Discharge Disposition: Discharge to home or self care Social History Tobacco Use Types Packs/Day Years Used Date Smoking Tobacco: Every Day Cigarettes 0.1 20 Alcohol Use Standard Drinks/Week Comments Not Currently 0 (1 standard drink = 0.6 oz pur e alcohol) Recovering alcoholic-whiskey Sex and Gender Information Value Date Recorded Sex Assigned at Not on file 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 Gender Identity Not on file Sexual Orientation Not on file 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 file Not on file Not on file documented as of this encounter Last Filed Vital Signs Vital Sign Reading Time Taken Comments Blood Pressure 139/84 03/30/2020 2:16 PM CDT Pulse 73 03/30/2020 2:16 PM CDT Temperature 36.8 ??C (98.2 ??F) 03/30/2020 2:16 PM CD T Respiratory Rate - - Oxygen Saturation 98% 03/30/2020 2:16 PM CDT Inhaled Oxygen Concentration - - Weight 82.9 kg (182 lb 12.2 oz) 03/30/2020 2:16 PM CDT Height 182.9 cm (6') 03/30/2020 2:16 PM CDT Body Mass Index 24.79 03/30/2020 2:16 PM CDT documented in this encounter Medications at Time of Discharge meloxicam (MOBIC) 15 mg tablet TK 1 T PO D 09/21/2019 06/02/2021 TiZANidine (ZANAFLEX) 4 mg capsule TK ONE C PO BID PRF MUSCLE SPASITICITY. 09/21/2019 06/02/2021 documented as of this encounter Discharge Disposition Disposition Code Departure Means Destination Discharge to home or self care documented in this encounter Plan of Treatment Not on file documented as of this encounter Procedures Procedure Name Priority Date/Time Associated Diagnosis Comments SCAN - LABS 03/31/2020 12:[address] ABDOMEN PELVIS W CONTRAST 03/30/2020 4:20 PM CDT XR CHEST 1 VIEW 03/30/2020 3:56 PM CDT URINALYSIS, COMPLETE W/REFLEX TO CULTURE Routine 03/30/2020 3:30 PM CDT TNI WITH LIPID PANEL Routine 03/30/2020 3:29 PM CDT CBC WITH AUTO DIFFERENTIAL Routine 03/30/2020 3:29 PM CDT COMPREHENSIVE METABOLIC PANEL Routine 03/30/2020 3:29 PM CDT ECG 12-LEAD 03/30/2020 3:18 PM CDT documented in this encounter Results * SCAN - LABS (03/31/2020 12:00 AM CDT) Narrative 03/31/2020 12:00 AM CDT Ordered by an unspecified provider. us Historical Provider Final Res ult * CT Abdomen Pelvis W Contrast (03/30/2020 4:20 PM CDT) Anatomical Region Laterality Modality Body N/A Computed Tomogra phy 03/30/2020 4:51 PM CDT Narrative 03/30/2020 4:57 PM CDT Patient Name: TRAMAINE MARIN JR ?Ordering Dr: Keith Giron PA-C ?? D.O.B: 1970 ? Exam Date: 03/30/20 ?? 1620 ?? Age: 49 ?Sex: Male ? MR#: [id number] ?? Loc: ? RADIOLOGY REPORT ?? Order #[id number] ?? CT Scan ? CT Abd/Pelvis W IV Contrast ? Signed ? EXAM DESCRIPTION: ?? CT Abd/Pelvis W IV Contrast ? REASON FOR STUDY: ?Right flank pain for 5 days with fatigue and generalized ?? weakness. ? TECHNIQUE: ??CT scan of the abdomen and pelvis performed with intravenous and ? without oral contrast using helical scanning technique with dynamic ?? intravenous contrast injection. Reconstructed coronal and sagittal MPR images ?? reviewed. All images stored on PACS. ? Automated exposure control was used as a dose optimization technique for this ?? examination. ? CONTRAST TYPE/DOSE: ?? 100 mL Optiray 350 injected via ??left antecubital IV ? COMPARISON: ?? 04/28/2016 ? FINDINGS: ? LOWER CHEST: ??The heart size is stable. ??There is no definite evidence of ?? pericardial effusion. ??There are mild atherosclerotic changes of the aorta and ?? vasculature. ??There is minimal bibasilar subsegmental atelectasis. ??There is a ?? small hiatal hernia. ? LIVER: ??There is mild diffuse hepatic steatosis. ??There are stable too small ?? to characterize hypoattenuating lesions in the liver with the largest ?? measuring 0.5 cm in the anterior left hepatic dome (axial image 17). ??The ?? portal veins are grossly patent. ? GALLBLADDER: ??Grossly unremarkable. ? BILE DUCTS: ??No intrahepatic or extrahepatic ductal dilatation. ? SPLEEN: ??The spleen is grossly stable in size and unremarkable. ? PANCREAS: ??The pancreas appears grossly stable without definite of pancreatic ?? ductal dilatation, peripancreatic inflammatory changes, or peripancreatic ?? fluid collection. ? ADRENALS: ??The bilateral adrenal glands are grossly stable and unremarkable. ? KIDNEYS/URINARY TRACT: ??There is subtle patchy striated enhancement of the ?? lower pole of the left kidney. ??There are couple of nonobstructing calculi in ?? the left kidney with the largest measuring 0.5 cm. ??There is no definite ?? evidence of hydronephrosis or hydroureter. ??There is mild left periureteric ?? fat stranding. ??There is mild circumferential mucosal thickening of the ?? urinary bladder. ??The prostate gland measures 4.6 cm. ? GI: ??There is no definite evidence of bowel obstruction. ??The appendix is well ?? seen and demonstrates no evidence of appendicitis. ??There is a moderate amount ?? of retained fecal debris in the colon. ??There are scattered colonic ?? diverticula without definite evidence of diverticulitis. ??There is a small fat ?? containing periumbilical hernia. ??There is a small fat containing right ?? inguinal hernia. ??There is no definite evidence of free air or fluid in the ?? abdomen and pelvis. ??There is no definite evidence of lymphadenopathy in the ?? abdomen and pelvis. ? MUSCULOSKELETAL: ??There is a minimal to mild levoscoliotic curvature of the ?? spine with degenerative changes. ? OTHER: ??No other abnormality. ? IMPRESSION: ? 1. ??No definite evidence of bowel obstruction. ? 2. ??Mild patchy striated enhancement of the lower pole of the left kidney ?? along with mild left periureteric fat stranding and circumferential mucosal ?? thickening of the urinary bladder, which is concerning for cystitis, ascending ?? urinary tract infection, and pyelonephritis. ??Clinical correlation with ?? urinary analysis is recommended as clinically indicated. ? 3. ??Couple of nonobstructing left renal calculi. ??No definite evidence of ?? hydronephrosis or hydroureter. ? 4. ??Scattered colonic diverticula without definite evidence of diverticulitis. ? 5. ??Mild diffuse hepatic steatosis. ? 6. ??Normal appendix. ? THIS IS AN ELECTRONICALLY VERIFIED FINAL REPORT ?? 03/30/2020 4:57 PM - Electronically signed by Alirio Cole D.O. ?? Alirio Cole D.O. ? PS: PS ?? D: ??03/30/2020 4:57 PM ?? T: ??03/30/2020 4:57 PM ? Report ID: [id number] ?? Reading Location: ??[id number] ? REPORT ELECTRONICALLY SIGNED IN OTHER VENDOR SYSTEM ?? Resulting Agency Comment E Procedure Note Alirio Cole DO - 03/30/2020 Patient Name: TRAMAINE MARIN Dr: Keith Giron PA-C, D.O.B: 1970 Exam Date: 03/30/20 1620 Age: 49 Sex: Male MR#: [id number] Loc: RADIOLOGY REPORT Order #[id number] CT Scan CT Abd/Pelvis W IV Contrast Signed EXAM DESCRIPTION: CT Abd/Pelvis W IV Contrast REASON FOR STUDY: Right flank pain for 5 days with fatigue andgeneralized weakness. TECHNIQUE: CT scan of the abdomen and pelvis performed with intravenousand without oral contrast using helical scanning technique with dynamic intravenous contrast injection. Reconstructed coronal and sagittal MPRimages reviewed. All images stored on PACS. Automated exposure control was used as a dose optimization technique forthis examination. CONTRAST TYPE/DOSE: 100 mL Optiray 350 injected via left antecubitalIV COMPARISON: 04/28/2016 FINDINGS: LOWER CHEST: The heart size is stable. There is no definite evidence of pericardial effusion. There are mild atherosclerotic changes of theaorta and vasculature. There is minimal bibasilar subsegmental atelectasis. Thereis a small hiatal hernia. LIVER: There is mild diffuse hepatic steatosis. There are stable toosmall to characterize hypoattenuating lesions in the liver with the largest measuring 0.5 cm in the anterior left hepatic dome (axial image 17). The portal veins are grossly patent. GALLBLADDER: Grossly unremarkable. BILE DUCTS: No intrahepatic or extrahepatic ductal dilatation. SPLEEN: The spleen is grossly stable in size and unremarkable. PANCREAS: The pancreas appears grossly stable without definite ofpancreatic ductal dilatation, peripancreatic inflammatory changes, or peripancreatic fluid collection. ADRENALS: The bilateral adrenal glands are grossly stable andunremarkable. KIDNEYS/URINARY TRACT: There is subtle patchy striated enhancement ofthe lower pole of the left kidney. There are couple of nonobstructingcalculi in the left kidney with the largest measuring 0.5 cm. There is no definite evidence of hydronephrosis or hydroureter. There is mild leftperiureteric fat stranding. There is mild circumferential mucosal thickening of the urinary bladder. The prostate gland measures 4.6 cm. GI: There is no definite evidence of bowel obstruction. The appendix iswell seen and demonstrates no evidence of appendicitis. There is a moderateamount of retained fecal debris in the colon. There are scattered colonic diverticula without definite evidence of diverticulitis. There is asmall fat containing periumbilical hernia. There is a small fat containing right inguinal hernia. There is no definite evidence of free air or fluid inthe abdomen and pelvis. There is no definite evidence of lymphadenopathy inthe abdomen and pelvis. MUSCULOSKELETAL: There is a minimal to mild levoscoliotic curvature ofthe spine with degenerative changes. OTHER: No other abnormality. IMPRESSION: 1. No definite evidence of bowel obstruction. 2. Mild patchy striated enhancement of the lower pole of the left kidney along with mild left periureteric fat stranding and circumferentialmucosal thickening of the urinary bladder, which is concerning for cystitis,ascending urinary tract infection, and pyelonephritis. Clinical correlation with urinary analysis is recommended as clinically indicated. 3. Couple of nonobstructing left renal calculi. No definite evidence of hydronephrosis or hydroureter. 4. Scattered colonic diverticula without definite evidence ofdiverticulitis. 5. Mild diffuse hepatic steatosis. 6. Normal appendix. THIS IS AN ELECTRONICALLY VERIFIED FINAL REPORT 03/30/2020 4:57 PM - Electronically signed by Alirio Cole D.O. PS: PS Report ID: [id number] Reading Location: [place] [address] REPORT ELECTRONICALLY SIGNED IN OTHER VENDOR SYSTEM Keith NIXON CT PROCEDURES Final Result * XR Chest 1 View (03/30/2020 3:56 PM CDT) Anatomical Region Laterality Modality Body, Chest N/A Radiographic Riddhi ging 03/30/2020 4:07 PM CDT Narrative 03/30/2020 4:09 PM CDT Patient Name: TRAMAINE MARIN ?Ordering Dr: Keith Giron PA-C ?? D.O.B: 1970 ? Exam Date: 03/30/20 ?? 1556 ?? Age: 49 ?Sex: Male ? MR#: [id number] ?? Loc: ? RADIOLOGY REPORT ?? Order #[id number] ?? Radiology ? Chest 1 View Portable ? Signed ? EXAM DESCRIPTION: ?? Chest 1 View Portable ? REASON FOR STUDY: ?? Fatigue and weakness for 1 week. ? TECHNIQUE: ?? Frontal radiographic view of the chest acquired. ? COMPARISON: ?? Chest radiograph 10/10/2016 ? FINDINGS: ? LUNGS/PLEURA: ??No focal consolidation or large pleural effusion. ??No ?? pneumothorax. ? HEART/MEDIASTINUM: ??Heart size is normal. Normal mediastinal and hilar ?? contours. ? HARDWARE/LINES/TUBES: ??None. ? BONES: ??No acute findings. ? OTHER: ??No other significant finding. ? IMPRESSION: ? 1. ?? No acute radiographic abnormality. ? THIS IS AN ELECTRONICALLY VERIFIED FINAL REPORT ?? 03/30/2020 4:09 PM - Electronically signed by Refugio Michel M.D. ?? Refugio Michel M.D. ? LB: LB ?? D: ??03/30/2020 4:09 PM ?? T: ??03/30/2020 4:09 PM ? Report ID: [id number] ?? Reading Location: ??[id number] ? REPORT ELECTRONICALLY SIGNED IN OTHER VENDOR SYSTEM ?? Resulting Agency Comment E Procedure Note Refugio Michel MD - 03/30/2020 Patient Name: TRAMAINE MARIN JROrdering Dr: Keith Giron PA-C, D.O.B: 1970 Exam Date: 03/30/20 1553 Age: 49 Sex: Male MR#: [id number] Loc: RADIOLOGY REPORT Order #[id number] Radiology Chest 1 View Portable Signed EXAM DESCRIPTION: Chest 1 View Portable REASON FOR STUDY: Fatigue and weakness for 1 week. TECHNIQUE: Frontal radiographic view of the chest acquired. COMPARISON: Chest radiograph 10/10/2016 FINDINGS: LUNGS/PLEURA: No focal consolidation or large pleural effusion. No pneumothorax. HEART/MEDIASTINUM: Heart size is normal. Normal mediastinal and hilar contours. HARDWARE/LINES/TUBES: None. BONES: No acute findings. OTHER: No other significant finding. IMPRESSION: 1. No acute radiographic abnormality. THIS IS AN ELECTRONICALLY VERIFIED FINAL REPORT 03/30/2020 4:09 PM - Electronically signed by Refugio Michel M.D. LB: SHYLA Report ID: [id number] Reading Location: [id number] REPORT ELECTRONICALLY SIGNED IN OTHER VENDOR SYSTEM Keith TAYLOR IMG XR PROCEDURES Final Result * (ABNORMAL) URINALYSIS, COMPLETE W/REFLEX TO CULTURE (03/30/2020 3:30 PM CDT) Ur Collection Type CLEAN CATCH [facility] Ur Culture Indicated? C S NOT INDICATED [facility] Urine Color YELLOW YELLOW [facility] Urine Clarity [facility]AR [facility] Urine Glucose (UA) NORMAL NORMAL mg/dL [facility] Urine Bilirubin NEGATIVE NEGATIVE mg/dl [facility] Urine Ketones NEGATIVE NEGATIVE mg/dL [facility] Ur Specific [place] 1.030(H) 1.005 - 1.025 [facility] Urine Blood 0.2(A) NEGATIVE mg/dl [facility] Urine pH 5.0 5.0 - 8.0 [facility] Urine Protein 30(A) NEGATIVE mg/dL [facility] Urine Urobilinogen 2(A) NORMAL mg/dL [facility] Urine Nitrite NEGATIVE NEGATIVE [facility] Ur Leukocyte Esterase NEGATIVE NEGATIVE Kinsey/ul [facility] Ur Microscopic Review Indicated or Ordered [facility] Urine RBC 18 0 - 2 /HPF [facility] Urine WBC 3 0 - 2 /HPF [facility] Urine Mucus RARE /LPF [facility] 03/30/2020 3:30 PM CDT 03/30/2020 3:55 PM CDT Narrative [facility] - 03/30/2020 4:11 PM CDT Indication(s) for ordering ?? Delirium/malaise/lethargy am Clean catch Resulting Agency Comment ER Keith TAYLOR LAB URINE ORDERABLES Final Res ult [address] [phone] * (ABNORMAL) TNI with LIPID PANEL (03/30/2020 3:29 PM CDT) Troponin I <0.300 0.000 - 0.300 ng/mL [facility] Comment: Reference using JARRETT Chemiluminescence ? Negative: Repeat in 4-6 hours as indicated. Triglycerides 151(H) 0 - 149 mg/dL [facility] Comment: National Lipid Association/NCEP Guidelines: ?? Normal ?< 150 mg/dL ?? Borderline high ?? 150-199 mg/dL ?? High ?200-499 mg/dL ?? Very High ? >=500 mg/dL Cholesterol 203(H) 0 - 199 mg/dL [facility] Comment: National Lipid Association/NCEP Guidelines: Desirable ? < 200 mg/dL Borderline high: ??200-239 mg/dL High Risk: ?>=240 mg/dL HDL Cholesterol 46 mg/dL [facility] Comment: Reference Ranges: ? Males: >=40 mg/dL ? Females: >=50 mg/dL LDL Cholesterol, Calc 127 0 - 129 mg/dL [facility] Comment: National Lipid Association/NCEP Guidelines: ??Optimal ? < 100 mg/dL ??Near Optimal ?100-129 mg/dL ??Borderline high 130-159 mg/dL ??High ?>=160 mg/dL Cholesterol/HDL Ratio 4.4 [facility] Comment: Optimal ??< 3.5:1 High ? > 5:1 03/30/2020 3:29 PM CDT 03/30/2020 3:33 PM CDT Narrative Resulting Agency Comment ER us Keith TAYLOR LAB BLOOD ORDERABLES Final Res ult [facility] [address] [place] [address], [facility] [phone] * (ABNORMAL) Comprehensive metabolic panel (03/30/2020 3:29 PM CDT) Sodium 144 135 - 145 mmol/L [facility] Potassium 5.3(H) 3.3 - 5.1 mmol/L [facility] Chloride 102 96 - 108 mmol/L [facility] Carbon Dioxide 30 22 - 32 mmol/L [facility] Anion Gap 12 7 - 16 [facility] Glucose 106(H) 70 - 100 mg/dL [facility] BUN 18 8 - 25 mg/dL [facility] Creatinine 1.0 0.5 - 1.3 mg/dL [facility] Comment: NOTE: Estimated GFR (Cockroft-Gault) will NOT be calculated unless patient Height and Weight were entered. Also, Kidney Disease Stage (GFR) and Estimated GFR (Cockroft-Gault) will NOT be calculated if Creatinine result is <0.2. Kidney Disease Stage 84 mL/MIN [facility] Comment: NOTE; ??The GFR is an estimated value using the creatinine, sex, age, and race of the patient. THE Estimated Kidney Disease GFR is validated for AGES 18-70 YEARS STAGE ?mL/Min ?DESCRIPTION ??1 ?90 mL/min or more ?Normal or elevated GFR ??2 ? 60-89 mL/min ?Mildly decreased GFR ??3 ? 30-59 mL/min ?Moderately decreased GFR ??4 ? 15-29 mL/min ?Severely decreased GFR ??5 ? <15 mL/min ? Kidney failure or on dialysis Est GFR (Cockcroft-G) 101 ml/MIN [facility] Comment: Estimated GFR(Cockroft-Gault)is used to calculate patient medication dosage Calcium 10.5(H) 8.6 - 10.3 mg/dL [facility] Total Protein 8.1 6.4 - 8.3 g/dL [facility] Albumin 5.0 3.5 - 5.0 g/dL [facility] Globulin 3.1 2.3 - 3.5 gm/dL [facility] Albumin/Globulin Ratio 1.6 1.1 - 1.8 [facility] Total Bilirubin 0.4 0.0 - 1.2 mg/dL [facility] AST 21 0 - 40 U/L [facility] ALT 24 0 - 41 U/L [facility] Alkaline Phosphatase 97 40 - 129 U/L [facility] 03/30/2020 3:29 PM CDT 03/30/2020 3:33 PM CDT Narrative Resulting Agency Comment ER Keith TAYLOR LAB BLOOD [place]AB[place] [address], [facility] [phone] * (ABNORMAL) CBC with auto differential (03/30/2020 3:29 PM CDT) WBC 12.1(H) 3.8 - 9.9 X10 3/ul [facility] RBC 5.90(H) 4.30 - 5.80 x10 6/ul [facility] Hemoglobin 17.6(H) 13.0 - 17.5 g/dL [facility] Hct 51.9(H) 38.9 - 50.3 % [facility] MCV 88.0 81.3 - 96.4 fl [facility] MCH 29.8 27.1 - 33.3 pg [facility] MCHC 33.9 32.3 - 35.7 g/dl [facility] RDW 13.3 11.1 - 14.9 % [facility] Plt Count 208 150 - 400 x10 3/ul [facility] MPV 11.3 9.1 - 12.3 fl [facility] Neut % 70.1 % [facility] Immature Gran % 0.3 % [facility] Lymph % 21.8 % [facility] [place] % 6.2 % [facility] Eos % 1.0 % [facility] E AST [facility] AUTO BASO % 0.6 % [facility] NEUTROPHIL ABS # 8.5(H) 1.7 - 6.5 x10 3/ul [facility] Immature Gran # 0.0 0.0 - 0.1 x10 3/ul [facility] Absolute Lymphs (auto) 2.7 0.8 - 3.3 x10 3/ul [facility] Absolute Monos (auto) 0.8 0.2 - 0.8 x10 3/ul [facility] Absolute Eos (auto) 0.1 0.0 - 0.5 x10 3/ul [facility] BASOPHIL ABS # 0.1 0.0 - 0.1 x10 3/ul [facility] Nucleat RBC Rel Count 0.0 #/100WBC [facility] NRBC abs 0.00 0.00 - 0.01 x10 3/ul [facility] Absolute Neutrophils 8,500(H) 200 - 8,000 /ul [facility] 03/30/2020 3:29 PM CDT 03/30/2020 3:33 PM CDT Narrative Resulting Agency Comment ER Keith TAYLOR LAB BLOOD ORDERABLES Final Res ult [facility] [address] [phone] * ECG 12 lead (03/30/2020 3:18 PM CDT) Ventricular Rate EKG/Min 67 BPM [facility] Atrial Rate 67 BPM [facility] [place]-Interval (MSEC) 118 ms [facility] QRS-Interval (MSEC) 76 ms [facility] QT-Interval (MSEC) 394 ms [facility] QTc 416 ms [facility] P [place] 79 degrees [facility] R [place] -40 degrees [facility] T [place] 51 degrees [facility] Diagnosis Normal sinus rhythm Left axis deviation Nonspecific ST abnormality Abnormal ECG When compared with ECG of 23-FEB-2009 21:15, No significant change was found [facility] 03/30/2020 3:18 PM CDT 03/30/2020 11:14 PM CDT Narrative Resulting Agency Comment LEANDRO us Keith TAYLOR ECG ORDERABLES Final Result [facility] documented in this encounter Visit Diagnoses Not on filedocumented in this encounter Care Teams Tipple Boss Relationship Specialty Start Date End Date Kely Tijerina NP [address] [facility] [address] [address] PCP - General 12/04/19 06/01/21 documented as of this encounter
--- OUTSIDE RECORDS SUMMARY | 2024-09-25 06:41 | XMS_ITS | Encounter Summary ---
Author Organization [facility] Address [address] [place] [address] Care Team Providers Care Cellars Supervisor Name Role Phone Elton De La Fuente MD Primary Care Provider Encounter Details Date Type Department Care Team (Late st Contact Info) Description 10/24/2019 Orders Only [facility] Orthopedics and Sports Medicine [address] [place] [phone] Jena Loredo MA Lumbar herniated disc (Primary Dx); Cervical herniated disc; Foraminal stenosis of cervical region Social History Tobacco Use Types Packs/Day Years Used Date Smoking Tobacco: Every Day Cigarettes 0.1 20 Alcohol Use Standard Drinks/Week Comments Not Currently 0 (1 standard drink = 0.6 oz pur e alcohol) Recovering alcoholic-whiskey Sex and Gender Information Value Date Recorded Sex Assigned at Not on file 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
--- OUTSIDE RECORDS SUMMARY | 2024-09-25 06:41 | XMS_ITS | Encounter Summary ---
Author Organization [facility] Address [address] [place] [address] Care Team Providers Care Spinning Lathe Operator Name Role Phone Elton De La Fuente MD Primary Care Provider [phone] Reason for Referral * Diagnostic Imaging (Routine) - Closed Specialty Diagnoses / Procedures Referred By Contac t Referred To Contact Diagnoses Right lumbar radiculopathy Procedures MRI Lumbar Spine WO Contrast Kely Tijerina NP Phone: tel: fax: [address] [phone] Referral ID Status Reason Start Date Expiration Date Visits Re quested Visits Authorized [id number] Closed 10/11/2019 04/21/2021 1 1 RINTENDENT CUSTODIAN JANITOR * Diagnostic Imaging (Routine) - Closed Specialty Diagnoses / Procedures Referred By Contac t Referred To Contact Diagnoses Right cervical radiculopathy Procedures MRI Cervical Spine WO Contrast Kely Tijerina NP Phone: tel: fax: [address] [phone] Referral ID Status Reason Start Date Expiration Date Visits Re quested Visits Authorized [id number] Closed 10/11/2019 04/21/2021 1 1 RINTENDENT CUSTODIAN JANITOR * Diagnostic Imaging (Routine) - Closed Specialty Diagnoses / Procedures Referred By Dat t Referred To Contact Diagnoses Chronic neck and back pain Procedures XR Spine Cervical Complete 4 or 5 Views Kely Tijerina NP Phone: tel: fax: [facility] [address] [place] [phone] Referral ID Status Reason Start Date Expiration Date Visits Re quested Visits Authorized [id number] Closed 10/03/2019 04/13/2021 1 1 RINTENDENT CUSTODIAN JANITOR Reason for Visit * Reason Comments Pain Encounter Details Date Type Department Care Team (Late st Contact Info) Description 10/11/2019 8:00 AM SUPERINTENDENT CUSTODIAN JANITOR Office Visit [facility] Orthopedics and Sports Medicine [address] [place] [address] [address] [place] [address] Kely Tijerina NP [address] [place] [address] [phone] Chronic neck and back pain; Right cervical radiculopathy; Right lumbar radiculopathy Social History Tobacco Use Types Packs/Day Years Used Date Smoking Tobacco: Every Day Cigarettes 0.1 20 Alcohol Use Standard Drinks/Week Comments Not Currently 0 (1 standard drink = 0.6 oz pur e alcohol) Recovering alcoholic-whiskey Sex and Gender Information Value Date Recorded Sex Assigned at Not on file Legal Sex Male 6:34 PM SUPERINTENDENT CUSTODIAN JANITOR Gender Identity Not on file Sexual Orientation Not on file 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 Not on file Not on file Not on file documented as of this encounter Last Filed Vital Signs Vital Sign Reading Time Taken Comments Blood Pressure - - Pulse - - Temperature - - Respiratory Rate - - Oxygen Saturation - - Inhaled Oxygen Concentration - - Weight 84.4 kg (186 lb) 10/11/2019 8:19 AM SUPERINTENDENT CUSTODIAN JANITOR Height 182.9 cm (6') 10/11/2019 8:19 AM SUPERINTENDENT CUSTODIAN JANITOR Body Mass Index 25.23 10/11/2019 8:19 AM SUPERINTENDENT CUSTODIAN JANITOR documented in this encounter Progress Notes * Kely Tijerina NP - 10/11/2019 8:00 AM CST Addendum: I have referred Tramaine to Dr. Neto Murdock, interventional pain management for selective nerve root block right C6 and selective nerve root block right L4 . He has moderate to severe right neural foraminal narrowing C5-C6 and a posterior disc protrusion C6-C7 on MRI of the cervical spine October 23, 2019. He has moderate to severe right neural foraminal narrowing with mass effect on the exiting right L4 nerve root on MRI of the lumbar spine October 23, 2019. I spoke with Tramaine today October 24, 2019 regarding the MRI of the cervical and lumbar spine results. If his neck pain with radiation down the right arm and lumbar pain with radiation down the right leg pain symptoms persist after the selective nerve root blocks by Dr. Neto Murdock, then Tramaine was instructed to contact the Orthopedic clinic and I plan to refer him to Dr. Rosas Haney, spine surgeon. Reason for Appointment: 1. Chronic neck pain with radiation down the right arm 2. Chronic lumbar pain with radiation down the right leg History of Present Illness: Tramaine Marin Jr. is a 48 y.o. male arrived to the orthopedic department ambulatory walking with noassisted devices for chief complaint of 5/10 posterior neck pain greater on the right described as an achiness, occasional sharp pain with pain radiating down the right arm. He reports a history of neck pain symptoms starting in 2015 after he was walking out of a door and hit his head on top of thedoor way. Previous conservative treatment included caregivers non medical, use of meloxicam and tizanidine. He also has 8/10 lower lumbar pain which radiates down the right leg to the knee described as anachy, occasional sharp pain. He reports a history of intermittent back pain starting in 2009 which has been progressively increasing. 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 He also reports a history of cocaine snoring with no use of cocaine for 15 years.He denies bowel or bladder dysfunction and denies saddle anesthesia symptoms. Examination: Ortho Exam Cervical spine exam: ??? Inspection of the cervical spine shows normal alignment, no surgical scars, no skin defects, nomuscle atrophy, no masses, no rashes. ??? There is no concerning pain with palpation over the cervical or thoracic spinous process region. ??? There is tenderness with palpation of the right cervical paraspinal/facet region at C5 and C6 level. ??? Range of motion with flexion is 50??, with extension is 60??, with lateral rotation is 80?? andlateral bending is 45??. ??? Spurlings test does produce radicular pain on the right to the lateral shoulder and upper arm.. ??? Hoffmans test is negative. ??? Lhermittes sign is negative. ??? Sensation is intact in the median, ulnar, radial and axial distribution. ??? He kush able to give a thumbs up, give an okay sign, abduct the fingers, cross the fingers, adduct the thumb to the fifth finger, and exhibit full rewards consultant strength. 2+ radial and ulnar pulses. Fingers warm to touch with capillary refill < 2 seconds. Lumbar spine exam: ?? Inspection of the lumbar spine shows normal alignment, no surgical scars, no skin defects, no muscle atrophy, no masses, and no rashes. ?? Thoracic or lumbar spinous process pain. No pain with palpation ?? Lumbar paraspinal/facet pain. There is tenderness with palpation of the bilateral facet joints at L-4, L-5 and S1. ?? There is increased lumbar pain with extension and right > left lateral bending. ?? Referred pain to the right > left gluteal region ?? Straight leg raise produces negative radicular leg pain ?? Corona sign produces negative radicular leg pain with extension ?? Sensation is intact in the superficial peroneal nerve, deep peroneal nerve, sural, saphenous, and plantar nerves. ?? Deep tendon reflexes of the patella and achilles 2+. ?? There is no groin pain with logroll internal and external rotation of the hip. ?? There is full strength with hip adduction, abduction and flexion of the hip with (100) degrees of hip flexion, (50) degrees of external rotation and (30) degrees of internal rotation. ?? no tenderness with palpation of the bilateral greater trochanter. General examination: GENERAL APPEARANCE: Well-nourished, in no acute distress NECK/THYROID: Neck supple. See cervical spine exam above. SKIN: No erythema. No ecchymosis. No rashes, good turgor, warm and dry, no suspicious lesions HEART:Regular rate and rhythm LUNGS: Unlabored breathing ABDOMEN: Soft,no guarding MUSCULOSKELETAL: See cervical spine and lumbar spine exam above. EXTREMITIES: full and equal strength with knee extension, flexion, ankle dorsi and plantar flexion.There is no pain on palpation or swelling of the calf concerning for deep vein thrombosis. The lower extremities are warm and well perfused. 2+ dorsalis pedis pulses. Toes warm to touch with capillary refill < 2 seconds. 2+ radial and ulnar pulses. Fingers warm to touch with capillary refill < 2 seconds. NEUROLOGIC: Gait coordinated, deep tendon upper and lower extremity reflexes 2+ symmetrical, alert and oriented, upper and lower extremity muscle strength 5/5, sensory exam intact PSYCH: Cooperative with exam Imaging Reviewed: Cervical spine x-ray October 11, 2019, impression per radiologist Dr.Jayant Gould: Mild cervicalspondylosis without acute osseous abnormality. Lumbar spine x-ray September 11, 2019, impression per radiologist Dr. Trung Garcia: Qzgf-pc-bvmvmtqr lumbar spondylosis, without acute radiographic abnormality. ?? Assessment: Diagnosis Plan 1. Chronic neck and back pain XR Spine Cervical Complete 4 or 5 Views 2. Right cervical radiculopathy MRI Cervical Spine WO Contrast 3. Right lumbar radiculopathy MRI Lumbar Spine WO Contrast Plan: ??? I have ordered an MRI of the cervical spine and lumbar spine. Reason for MRIs: Chronic persistent pain to the posterior neck which radiates down the right arm concerning for right C6 dermatomal involvement. Chronic persistent pain to the lower lumbar region which radiates down the right lateralleg concerning for right L5 dermatomal involvement. Failed conservative treatment with the use of meloxicam, tizanidine, caregivers non medical ??? Tramaine was instructed to follow up with me in the orthopedic clinic after completion of the MRIs for review. Allergies: Patient has no known allergies. Medications: Current Outpatient Medications: ??? meloxicam (MOBIC) 15 mg tablet, TK 1 T PO D, Disp: , Rfl: ??? TiZANidine (ZANAFLEX) 4 mg capsule, TK ONE C PO BID PRF MUSCLE SPASITICITY., Disp: , Rfl: Review of Systems: Review of Systems Constitutional: Negative for chills and fever. Respiratory: Negative for shortness of breath. Cardiovascular: Negative for chest pain and leg swelling. Gastrointestinal: Negative for abdominal pain. Genitourinary: Negative for dysuria. Musculoskeletal: Positive for back pain and neck pain. Skin: Negative for rash. Neurological: Positive for tingling (Right arm, right leg). Negative for focal weakness. Endo/Heme/Allergies: Does not bruise/bleed easily. Psychiatric/Behavioral: The patient is not nervous/anxious. Past Medical History: Past Medical History: Diagnosis Date ??? Cervical spondylosis ??? Degenerative disc disease, lumbar ??? Kidney stone ??? Lumbar spondylosis Past Surgical History: Past Surgical History: Procedure Laterality Date ??? EYE SURGERY Bilateral as young child Social History: Social History Occupational History ??? 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 Smoking status: Current Every Day Smoker Packs/day: 0.05 Years: 20.00 Pack years: 1.00 Types: Cigarettes Substance and Sexual Activity ??? Alcohol use: Not Currently Comment: Recovering alcoholic-whiskey ??? Drug use: Not Currently Types: Cocaine Comment: in past ??? Sexual activity: Not on file Vital Signs: Height 182.9 cm (6'), weight 84.4 kg (186 lb). BMI Readings from Last 1 Encounters: 10/11/19 25.23 kg/m?? Kely Tijerina NP RINTENDENT CUSTODIAN JANITOR RINTENDENT CUSTODIAN JANITOR documented in this encounter Plan of Treatment Not on file documented as of this encounter Results * MRI Lumbar Spine WO Contrast (10/23/2019 6:20 AM SUPERINTENDENT CUSTODIAN JANITOR) Anatomical Region Laterality Modality Spine N/A Magnetic Resonan ce 10/24/2019 9:48 AM SUPERINTENDENT CUSTODIAN JANITOR Narrative 10/24/2019 10:02 AM SUPERINTENDENT CUSTODIAN JANITOR Patient Name: TRAMAINE MARIN ?Ordering Dr: Kely Tijerina ANP ?? D.O.B: 1970 ? Exam Date: 10/23/ ?? 0620 ?? Age: 48 ?Sex: Male ? MR#: [id number] ?? Loc: ? RADIOLOGY REPORT ?? Order #[id number] ?? Magnetic Resonance Imaging ? MRI Lumbar [...] ??Moderate ?? spinal canal narrowing. ??There is dogz-qi-rgcjaysf right and moderate to ?? severe left neural foraminal narrowing. ??Thickened ligamentum flavum and disc ?? material contacts the exiting left L2 nerve root. ? L3-L4: Retrolisthesis of L3 on L4. ??Circumferential disc bulge and ?? superimposed central disc protrusion with an annular fissure. ??Thickening of ?? ligamentum flavum and facet arthropathy. ??There is icue-aw-piqwsuqy spinal ?? canal narrowing. ??Moderate right and left neural foraminal narrowing, right ?? greater than left. ? L4-L5: Retrolisthesis of L4 on L5. ??Circumferential disc bulge and a ?? superimposed central disc protrusion with an annular fissure. ??There is ?? thickening of ligamentum flavum and facet arthropathy. ??Rlsb-bj-dzkrybxh ?? spinal canal narrowing. ??There is bilateral subarticular zone narrowing, left ?? greater than right. ??Moderate to severe right and mpxf-iu-mqumzzse left neural ?? foraminal narrowing. ??Mass effect [...] T: ??10/24/2019 10:02 AM ? Report ID: [id number] ?? Reading Location: ??[id number] ? REPORT ELECTRONICALLY SIGNED IN OTHER VENDOR SYSTEM ?? Resulting Agency Comment O Procedure Note Berto Panchal DO - 10/24/2019 Patient Name: TRAMAINE MARIN [facility] Dr: Kely Tijerina D.O.B: 1970 Exam Date: 10/23/19619 Age: 48 Sex: Male MR#: [id number] Loc: RADIOLOGY REPORT Order #[id number] Magnetic Resonance Imaging MRI Lumbar Signed EXAM [...] facet arthropathy.Moderate spinal canal narrowing. There is vgon-gy-ovmkxvap right and moderate to severe left neural foraminal narrowing. Thickened ligamentum flavum anddisc material contacts the exiting left L2 nerve root. L3-L4: Retrolisthesis of L3 on L4. Circumferential disc bulge and superimposed central disc protrusion with an annular fissure. Thickeningof ligamentum flavum and facet arthropathy. There is anpc-wn-ajubecspclzoiy canal narrowing. Moderate right and left neural foraminal narrowing,right greater than left. L4-L5: Retrolisthesis of L4 on L5. Circumferential disc bulge and a superimposed central disc protrusion with an annular fissure. There is thickening of ligamentum flavum and facet arthropathy. Ahqi-wf-qbpijckg spinal canal narrowing. There is bilateral subarticular zone narrowing,left greater than right. Moderate to severe right and gktf-zc-hfnpktph leftneural foraminal narrowing. Mass effect on the [...] Berto Panchal D.O. AP: CARMINA Report ID: [id number] Reading Location: [place] [address] REPORT ELECTRONICALLY SIGNED IN OTHER VENDOR SYSTEM us Kely Tijerina NP IMG MRI PROCEDURES Final Re sult * MRI Cervical Spine WO Contrast (10/23/2019 6:20 AM SUPERINTENDENT CUSTODIAN JANITOR) Anatomical Region Laterality Modality Spine N/A Magnetic Resonan ce 10/24/2019 11:4 1 AM SUPERINTENDENT CUSTODIAN JANITOR Narrative 10/24/2019 11:53 AM SUPERINTENDENT CUSTODIAN JANITOR Patient Name: TRAMAINE MARIN JR ?Ordering Dr: Kely Tijerina ANP ?? D.O.B: 1970 ? Exam Date: 10/23/ ?? 0620 ?? Age: 48 ?Sex: Male ? MR#: [id number] ?? Loc: ? RADIOLOGY REPORT ?? Order #[id number] ?? Magnetic Resonance Imaging ? MRI Cervical [...] at ?? C4-C5 and C6-C7. ? DISCS: Pmss-iw-wbzeviqn disc desiccation and height loss at C5-C6 [...] spurring and facet ?? arthropathy resulting in bouz-as-svopmhih left and moderate to severe right ?? [...] T: ??10/24/2019 11:53 AM ? Report ID: [id number] ?? Reading Location: ??[id number] ? REPORT ELECTRONICALLY SIGNED IN OTHER VENDOR SYSTEM ?? Resulting Agency Comment O Procedure Note Berto Panchal DO - 10/24/2019 Patient Name: TRAMAINE MARIN [facility] Dr: Kely Tijerina D.O.B: 1970 Exam Date: 10/23/19619 Age: 48 Sex: Male MR#: [id number] Loc: RADIOLOGY REPORT Order #[id number] Magnetic Resonance Imaging MRI Cervical Signed EXAM [...] to lesser extentat C4-C5 and C6-C7. DISCS: Jemv-ys-howmeeir disc desiccation and height loss at C5-C6 [...] Uncovertebral spurring and facet arthropathy resulting in mvis-nl-qqiznjvs left and moderate to severeright neural foraminal [...] Berto Panchal D.O. AP: CARMINA Report ID: [id number] Reading Location: [place] [address] REPORT ELECTRONICALLY SIGNED IN OTHER VENDOR SYSTEM us Kely Tijerina AGRICULTURAL AGENT IMG MRI PROCEDURES Final Re sult * XR Spine Cervical Complete 4 or 5 Views (10/11/2019 8:07 AM SUPERINTENDENT CUSTODIAN JANITOR) Anatomical Region Laterality Modality Spine N/A Radiographic Riddhi ging 10/11/2019 12:5 5 PM SUPERINTENDENT CUSTODIAN JANITOR Narrative 10/11/2019 1:00 PM SUPERINTENDENT CUSTODIAN JANITOR Patient Name: TRAMAINE MARIN JR ?Ordering Dr: Kely Tijerina ?? D.O.B: 1970 ? Exam Date: 10/11/19 ?? 0807 ?? Age: 48 ?Sex: Male ? MR#: [id number] ?? Loc: ? RADIOLOGY REPORT ?? Order #[id number] ?? Radiology ? Cervical Spine 4 View Min ? Signed ?? EXAM DESCRIPTION: ?? Cervical Spine 4 View Min ? REASON FOR STUDY: ??Neck pain for 2 years. ??No known injury. ? TECHNIQUE: ??Five radiographic views acquired of the cervical spine. ? COMPARISON: ??None available ? FINDINGS: ? ALIGNMENT: Anatomic. ? VERTEBRAE: Vertebral bodies of normal height.Mild facet and uncovertebral ?? hypertrophy in the mid cervical spine is seen. ? DISCS: Mild loss of disc space at C5-C6. ? FORAMINA: No definite left neural foraminal narrowing. ??Limited evaluation of ?? the right neural foramina due to position. ? HARDWARE: None in the spine. ? SOFT TISSUES: No soft tissue swelling. ??Lung apices clear. ? OTHER: No other significant finding. ? IMPRESSION: ??Mild cervical spondylosis without acute osseous abnormality. ? THIS IS AN ELECTRONICALLY VERIFIED FINAL REPORT ?? 10/11/2019 1:00 PM - Electronically signed by Alonso Gould M.D. ?? Alonso Gould M.D. ? JA ?? D: ??10/11/2019 12:56 PM ?? T: ??10/11/2019 12:57 PM ? Report ID: [id number] ?? Reading Location: ??[id number] ? REPORT ELECTRONICALLY SIGNED IN OTHER VENDOR SYSTEM ?? Resulting Agency Comment O Procedure Note Alonso Gould MD - 10/11/2019 Patient Name: TRAMAINE MARIN Dr: Kely TijerinaO.B: 1970 Exam Date: 10/11/1907 Age: 48 Sex: Male MR#: [id number] Loc: RADIOLOGY REPORT Order #[id number] Radiology Cervical Spine 4 View Min Signed EXAM DESCRIPTION: Cervical Spine 4 View Min REASON FOR STUDY: Neck pain for 2 years. No known injury. TECHNIQUE: Five radiographic views acquired of the cervical spine. COMPARISON: None available FINDINGS: ALIGNMENT: Anatomic. VERTEBRAE: Vertebral bodies of normal height.Mild facet and uncovertebral hypertrophy in the mid cervical spine is seen. DISCS: Mild loss of disc space at C5-C6. FORAMINA: No definite left neural foraminal narrowing. Limitedevaluation of the right neural foramina due to position. HARDWARE: None in the spine. SOFT TISSUES: No soft tissue swelling. Lung apices clear. OTHER: No other significant finding. IMPRESSION: Mild cervical spondylosis without acute osseous abnormality. THIS IS AN ELECTRONICALLY VERIFIED FINAL REPORT 10/11/2019 1:00 PM - Electronically signed by Alonso GRAHAM Report ID: [id number] Reading Location: [place] [address] REPORT ELECTRONICALLY SIGNED IN OTHER VENDOR SYSTEM Kely Tijerina NP IMG XR PROCEDURES Final Res ult documented in this encounter Visit Diagnoses Diagnosis Lumbar pain Lumbago Neck pain Cervicalgia Chronic neck and back pain Right cervical radiculopathy Right lumbar radiculopathy Thoracic or lumbosacral neuritis or radiculitis, unspecified Right lumbar radiculopathy Thoracic or lumbosacral neuritis or radiculitis, unspecified Right cervical radiculopathy documented in this encounter Discontinued Medications Medication Sig Discontinue Reason Start Date End Da te cyclobenzaprine (FLEXERIL) 10 mg tablet Take 1 tablet nightly as needed 09/11/2019 10/11/2019 documented as of this encounter Historical Medications * This list may reflect changes made after this encounter. TiZANidine (ZANAFLEX) 4 mg capsule TK ONE C PO BID PRF MUSCLE SPASITICITY. 09/21/2019 06/02/2021 meloxicam (MOBIC) 15 mg tablet TK 1 T PO D 09/21/2019 06/02/2021 added in this encounter Care Teams Spinning Lathe Operator Relationship Specialty Start Date End Date Elton De La Fuente MD PCP - General Family Medicine 09/04/19 12/03/19 documented as of this encounter
--- OUTSIDE RECORDS SUMMARY | 2024-09-25 06:41 | XMS_ITS | Encounter Summary ---
Author Organization [facility] Address [address] [place] [address] Care Team Providers Care Director Of Income Tax Name Role Phone Elton De La Fuente MD Primary Care Provider [phone] Reason for Visit * Reason Comments New Patient Surgical Clearance back surgery Encounter Details Date Type Department Care Team (Latest Contact Info) Description 06/02/2021 3:00 PM CDT Office Visit [facility] Cardiology [address] [place] [address] Hunter Smith MD [address] [id number] Preop cardiovascular exam (Primary Dx); Dyslipidemia; Tobacco abuse Social History Tobacco Use Types Packs/Day Years Used Date Smoking Tobacco: Every Day Cigarettes 1 20 Smokeless Tobacco: Never Alcohol Use Standard Drinks/Week Comments Not Currently 0 (1 standard drink = 0.6 oz pur e alcohol) Recovering alcoholic-whiskey Sex and Gender Information Value Date Recorded Sex Assigned at Not on file 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 Gender Identity Not on file Sexual Orientation Not on file 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 Not on file Not on file documented as of this encounter Last Filed Vital Signs Vital Sign Reading Time Taken Comments Blood Pressure 122/74 06/02/2021 3:05 PM CDT Pulse 91 06/02/2021 3:05 PM CDT Temperature - - Respiratory Rate - - Oxygen Saturation 98% 06/02/2021 3:05 PM CDT Inhaled Oxygen Concentration - - Weight 78.5 kg (173 lb) 06/02/2021 3:05 PM CDT Height 182.9 cm (6') 06/02/2021 3:05 PM CDT Body Mass Index 23.46 06/02/2021 3:05 PM CDT documented in this encounter Progress Notes * Hunter Smith MD - 06/02/2021 3:00 PM CDT [facility] CARDIOLOGY 06/02/2021 CHIEF COMPLAINT Chief Complaint Patient presents with ??? New Patient ??? Surgical Clearance back surgery HPI Tramaine Marin Jr. is a 50 y.o. male with DJD, emphysema (based on patient's heavy smoking status and chest x-ray findings), tobacco abuse, history of cocaine abuse. 06/02/2021 initial evaluation-patient has been referred for preoperative cardiovascular evaluation.He denies any prior cardiovascular history including clinical PA, angina, heart failure or any arrhythmias. Patient [...] alcohol or any other illicit drug use MEDICAL HISTORY he has a past medical history of Cervical spondylosis, Degenerative disc disease, lumbar, Hypertension, Kidney stone, and Lumbar spondylosis. he has a past surgical history that includes Eye surgery (Bilateral). he Allergies Allergen Reactions ??? Sudafed [Pseudoephedrine] Other (See comments) ya Current Outpatient Medications Medication Sig Dispense Refill ??? cetirizine (ZyrTEC) 10 mg tablet Take 10 mg by mouth daily ??? diclofenac DR (VOLTAREN) 75 mg EC tablet Take 75 mg by mouth 2 (two) times a day ??? HYDROcodone-acetaminophen (NORCO) 7.5-325 mg per tablet TAKE 1 TABLET BY MOUTH THREE TIMES DAILY NEEDED FOR PAIN No current facility-administered medications for this visit. [...] palpitations, syncope, orthopnea/PND; positive for dyspnea on severe exertion Gastrointestinal ROS: negative for - abdominal pain Endocrine ROS: negative for - hot flashes, polydipsia/polyuria Musculoskeletal ROS: Low back pain Neurological ROS: Positive for - gait disturbance, and left leg weakness Dermatological ROS: negative for pruritus, rash LABS AND OTHER DIAGNOSTIC TESTS REVIEWED Lab Results Component Value Date WBC 12.1 (H) 03/30/2020 HGB 17.6 (H) 03/30/2020 HCT 51.9 (H) 03/30/2020 MCV 88.0 03/30/2020 No lab exists for component: LABALBU Lab Results Component Value Date WBC 12.1 (H) 03/30/2020 HGB 17.6 (H) 03/30/2020 HCT 51.9 (H) 03/30/2020 MCV 88.0 03/30/2020 Lab Results Component Value Date CHOL 203 (H) 03/30/2020 Lab Results Component Value Date HDL 46 03/30/2020 No results found for: LDL] Lab Results Component Value Date TRIG 151 (H) 03/30/2020 Chest p-zjz-emcxaadijnynl lungs consistent with emphysema. 04/02/2021 [facility] EKG-sinus rhythm with occasional PACs; leftward axis, incomplete right bundle branch block. 04/02/2021 [facility] EKG-sinus rhythm, incomplete RBBB. 06/02/2021 Lipids-total cholesterol 210, HDL 35, triglycerides 261, LDL 123. 06/02/2021 PHYSICAL EXAM Vitals BP 122/74 (BP Location: Left arm, Patient Position: Sitting) Pulse 91 Ht 182.9 cm (6') Wt 78.5 kg (173 lb) SpO2 98% BMI 23.46 kg/m?? General appearance - alert, no distress, oriented to time, place, person Mental status - affect appropriate to mood Eyes - extraocular eye movements intact, no pallor Ears - external ears appear normal, hearing grossly normal Nose - normal and patent, no discharge Mouth - mucous membranes moist, tongue normal Neck - supple, carotids upstroke normal bilaterally, no bruits, no JVD Chest - coarse breath sounds [...] for this visit: Preop cardiovascular exam (Primary) Dyslipidemia Tobacco abuse PLAN/RECOMMENDATIONS 50 y.o. with DJD, emphysema (based on patient's heavy smoking status and chest x-ray findings), tobacco abuse, history of cocaine abuse. Patient has DJD and scheduled to undergo low back surgery. He does not have any known prior cardiachistory including clinical PA, angina or heart failure. EKG shows sinus rhythm, incomplete right bundle branch block. Based on patient's current cardiovascular status, he would be at an acceptable risk for surgery for any major adverse cardiovascular events. No additional cardiac testing is indicated at this time. Patient is a heavy smoker. He has dyspnea on severe exertion and his recent chest x-ray suggestive of emphysema. Patient was advised to quit tobacco. Recommend PFTs at certain point in future to check for severity of COPD/emphysema. Diet and lifestyle modification for dyslipidemia. Counseling was done for heart healthy diet, aerobic exercise as tolerated. RTC 6 months or sooner if needed. Hunter Smith MD 06/02/21 Voice recognition software was used to complete this document, therefore, take away attendant variances may occur. documented in this encounter Miscellaneous Notes * Addendum Note - Kasia Gordon MA - 06/02/2021 3:00 PM CDTAddended by: KASIA GORDON on: 06/03/2021 02:33 PM Modules accepted: Orders documented in this encounter Plan of Treatment Not on file documented as of this encounter Procedures Procedure Name Priority Date/Time Associated Diagnosis Comments POCT LIPID PANEL Routine 06/02/2021 2:32 PM CDT Dyslipidemia ECG 12-LEAD Routine 06/02/2021 Preop cardiovascular exam documented in this encounter Results * POCT lipid panel (06/02/2021 2:32 PM CDT) Cholesterol, POC 210 mg/dL HDL, POC 35 mg/dL Triglycerides, POC 261 mg/dL LDL Cholesterol POC 123 mg/dL Chol/HDL Ratio, POC 6.0 Non-HDL Cholesterol, POC 175 mg/dL Cholesterol Total, POC 210 mg/dL Capillary blood 06/02/2021 2 :32 PM CDT us Hunter Smith MD POINT OF CARE TEST ORDERABLES Fi nal Result * ECG 12 lead (06/02/2021) us Hunter Smith MD ECG ORDERABLES Final Result documented in this encounter Visit Diagnoses Diagnosis Preop cardiovascular exam- Primary Pre-operative cardiovascular examination Dyslipidemia Other and unspecified hyperlipidemia Tobacco abuse Tobacco use disorder documented in this encounter Discontinued Medications Medication Sig Discontinue Reason Start Date End Da te meloxicam (MOBIC) 15 mg tablet TK 1 T PO D Therapy completed 09/21/2019 06/02/2021 TiZANidine (ZANAFLEX) 4 mg capsule TK ONE C PO BID PRF MUSCLE SPASITICITY. Therapy completed 09/21/2019 06/02/2021 documented as of this encounter Historical Medications * This list may reflect changes made after this encounter. cetirizine (ZyrTEC) 10 mg tablet Take 10 mg by mouth daily 07/23/[address] (VOLTAREN) 75 mg EC tablet Take 75 mg by mouth 2 (two) times a day 05/21/2021 07/23/2024 HYDROcodone-aceta minophen (NORCO) 7.5-325 mg per tablet TAKE 1 TABLET BY MOUTH THREE TIMES DAILY NEEDED FOR PAIN 05/24/2021 06/28/2021 added in this encounter Care Teams Director Of Income Tax Relationship Specialty Start Date End Date Elton De La Fuetne MD PCP - General Family Medicine 06/02/21 documented as of this encounter
--- OUTSIDE RECORDS SUMMARY | 2024-09-25 06:41 | XMS_ITS | Encounter Summary ---
Author Organization [facility] Address [address] [place] [address] Care Team Providers Care Entry Level Receptionist Name Role Phone Elton De La Fuente MD Primary Care Provider Reason for Referral * Pulmonology (Routine) - Closed Specialty Diagnoses / Procedures Referred By Contac t Referred To Contact Diagnoses Abnormal chest x-ray Procedures Pulmonary Function Test -External Brittany Payne NP [address] [place] [id number] Phone: tel: fax: Referral ID Status Reason Start Date Expiration Date Visits Re quested Visits Authorized [id number] Closed 03/18/2022 04/17/2023 1 1 Reason for Visit * Reason Comments Follow-up 8 mo Encounter Details Date Type Department Care Team (Late st Contact Info) Description 03/18/2022 10:30 AM CDT Office Visit [facility] Cardiology [address] [phone] Brittany Payne NP [address] [address] Abnormal chest x-ray (Primary Dx); Tobacco abuse; RBBB Social History Tobacco Use Types Packs/Day Years Used Date Smoking Tobacco: Every Day Cigarettes 1 20 Smokeless Tobacco: Never Alcohol Use Standard Drinks/Week Comments Not Currently 0 (1 standard drink = 0.6 oz pur e alcohol) Recovering alcoholic-whiskey Sex and Gender Information Value Date Recorded Sex Assigned at Not on file 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 Gender Identity Not on file Sexual Orientation Not on file 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 [facility] Cardiology [address] [place] [address] Date of Visit: 03/18/2022 Patient ID: Tramaine Marin Jr. 1970 Chief Complaint Patient presents with ??? Follow-up 8 mo Tramaine Marin Jr. is a 51 y.o. male who was evaluated by Dr. Smith last year for preoperative assessment and returns to the office for follow-up regarding abnormal chest x-ray. History of Present Illness: Tramaine Marin Jr. is a 51 y.o. male with DJD, emphysema (based on patient's heavy smoking status and chest x-ray findings), tobacco abuse, history of cocaine abuse. 06/02/2021 initial evaluation-patient has been referred for preoperative cardiovascular evaluation.He denies any prior cardiovascular history including clinical NM, angina, heart failure or any arrhythmias. Patient [...] alcohol or any other illicit drug use 03/18/2022 office visit with CHEMICAL COMPOUNDER: He underwent microdiskectomy last year but reports that the resultwas not as positive as he would have hoped. He may need a repeat spine surgery that would be more involved. He is currently being evaluated for hematuria. He has had some unexplained weight loss overthe last year. He continues to smoke about 1 pack per day but states he only smokes about half of each cigarette. He reports no changes in his breathing over the last year. He reports he was previously ???a functional alcoholic?? and has now quit drinking. Records that I personally reviewed on the day of this visit include: (the interpretation is outlined in the HPI above) 06/02/[address] Smith I have also reviewed: allergies, current medications, past family history, past medical history, past social history, past surgical history and problem list Medical History: Past Medical History: Diagnosis Date ??? Cervical spondylosis ??? Degenerative disc disease, lumbar ??? Hypertension ??? Kidney stone ??? Lumbar spondylosis Past Surgical History: Procedure Laterality Date ??? EYE SURGERY Bilateral as young child Social History Tobacco Use ??? Smoking status: Current Every Day Smoker Packs/day: 1.00 Years: 20.00 Pack years: 20.00 Types: Cigarettes ??? Smokeless tobacco: Never Used Substance Use Topics ??? Alcohol use: Not Currently Comment: Recovering alcoholic-whiskey ??? Drug use: Yes Types: Cocaine, Marijuana Comment: marijuana occassionally, no longer does cocaine Family History Problem Relation Age of Onset ??? Arthritis Mother ??? Hypertension Mother ??? Diabetes Father ??? Lung disease Father ??? Cancer Father ??? Hypertension Father ??? Hyperlipidemia Father Review of Systems Constitutional: Positive for malaise/fatigue and weight loss. Negative for diaphoresis, fever and weight gain. HENT: Negative for hearing loss. Eyes: Negative for visual disturbance. Cardiovascular: Negative for chest pain, claudication, dyspnea on exertion, leg swelling, orthopnea, palpitations, paroxysmal nocturnal dyspnea and syncope. Respiratory: Positive for wheezing. Negative for cough, hemoptysis, shortness of breath and snoring. Hematologic/Lymphatic: Does not bruise/bleed easily. Skin: Negative for poor wound healing and rash. Musculoskeletal: Positive for joint pain and myalgias. Gastrointestinal: Negative for heartburn, nausea and vomiting. Genitourinary: Positive for hematuria. Neurological: Negative for dizziness, headaches and light-headedness. Psychiatric/Behavioral: Negative for depression. The patient is not nervous/anxious. Vital Signs: BP 126/70 (BP Location: Left arm, Patient Position: Sitting) Pulse 55 Ht 182.9 cm (6') Wt 78.5 kg (173 lb) SpO2 98% BMI 23.46 kg/m?? Physical Exam Constitutional: General: He is not in acute distress. Appearance: He is well-developed. HENT: Head: Normocephalic and atraumatic. Nose: Comments: Wearing a mask Eyes: General: No scleral icterus. Conjunctiva/sclera: Conjunctivae normal. Neck: Vascular: No JVD. Trachea: No tracheal deviation. Cardiovascular: Rate and Rhythm: Normal rate and regular rhythm. Heart sounds: Normal heart sounds. No murmur heard. Pulmonary: Effort: Pulmonary effort is normal. No respiratory distress. Breath sounds: Normal breath sounds. Skin: General: Skin is warm and dry. Neurological: Mental Status: He is alert and oriented to person, place, and time. Psychiatric: Mood and Affect: Mood normal. Behavior: Behavior normal. Allergies Allergen Reactions ??? Sudafed [Pseudoephedrine] Other (See comments) ya Current Outpatient Medications: ??? HYDROcodone-acetaminophen (NORCO) 7.5-325 mg per tablet, Take by mouth every 8 (eight) hours asneeded, Disp: , Rfl: ??? ibuprofen (ADVIL,MOTRIN) 800 mg tablet, Take 800 mg by mouth 3 (three) times a day as needed for pain, Disp: , Rfl: ??? cetirizine (ZyrTEC) 10 mg tablet, Take 10 mg by mouth daily (Patient not taking: Reported on 03/18/2022), Disp: , Rfl: ??? diclofenac DR (VOLTAREN) 75 mg EC tablet, Take 75 mg by mouth 2 (two) times a day (Patient not taking: Reported on 03/18/2022), Disp: , Rfl: ??? methocarbamoL (ROBAXIN) 500 mg tablet, Take 1 tablet (500 mg total) by mouth 2 (two) times a day (Patient not taking: Reported on 03/18/2022), Disp: 20 tablet, Rfl: 0 Lab Results Component Value Date POTASSIUM 5.3 (H) 03/30/2020 CREATININE 1.0 03/30/2020 CHOL 203 (H) 03/30/2020 TRIG 151 (H) 03/30/2020 LDLCALC 127 03/30/2020 HDL 46 03/30/2020 Lab Results Component Value Date WBC 12.1 (H) 03/30/2020 HGB 17.6 (H) 03/30/2020 HCT 51.9 (H) 03/30/2020 MCV 88.0 03/30/2020 Assessment: Diagnoses and all orders for this visit: Abnormal chest x-ray (Primary) - Pulmonary Function Test -External Tobacco abuse RBBB Plan/Recommendations: When Dr. Smith did his preoperative assessment last year he recommended follow-up later on regardingthe abnormal chest x-ray that indicated emphysema. I will send him for PFTs to better determine thediagnosis of COPD and the severity. I will schedule him for follow-up with Dr. Smith after the PFTs to review and discuss the results. Unfortunately he continues to smoke but acknowledges that he should quit and thinks the information from the PFT may help motivate him to quit. He had questions about the abnormality on his ECG last year. I explained meaning of the right bundle branch block and with no other concerning signs or symptoms for heart disease, there is no furtherworkup indicated with the right bundle branch block at this time. 03/18/2022 MICKEY Menendez- Nurse Practitioner with [facility] This note is dictated and transcribed using [employer] Direct Software. Sole Leveler variancesmay occur. Despite proofreading, typographical errors may occur. documented in this encounter Plan of Treatment Scheduled Orders Name Type Priority Associated Diagnoses Orde r Schedule Pulmonary Function Test -External PFT Routine Abnormal chest x-ray Ordered: 03/18/2022 documented as of this encounter Visit Diagnoses Diagnosis Abnormal chest x-ray- Primary Nonspecific (abnormal) findings on radiological and other examination of lung field Tobacco abuse Tobacco use disorder RBBB documented in this encounter Discontinued Medications Medication Sig Discontinue Reason Start Date End Da te HYDROcodone-acetaminoph en (NORCO) 5-325 mg per tabletIndications:Pain Take 1-2 tablets by mouth every 6 (six) hours as needed for pain (1 tablet for mild to moderate pain or 2 tablets for severe pain) Alternate therapy 06/28/2021 03/18/2022 documented as of this encounter Historical Medications * This list may reflect changes made after this encounter. HYDROcodone-aceta minophen (NORCO) 7.5-325 mg per tablet Take by mouth every 8 (eight) hours as needed 02/25/2022 09/18/2024 ibuprofen (ADVIL,MOTRIN) 800 mg tablet Take 1 tablet (800 mg total) by mouth 3 (three) times a day as needed for pain 02/25/2022 08/14/2024 added in this encounter Care Teams Entry Level Receptionist Relationship Specialty Start Date End Date Elton De La Fuente MD PCP - General Family Medicine 06/02/21 documented as of this encounter
--- OUTSIDE RECORDS SUMMARY | 2024-09-25 06:41 | XMS_ITS | Encounter Summary ---
Author Organization [facility] Address [address] [place] [address] Care Team Providers Care Loss Control Technician Name Role Phone Kely Tijerina NP Primary Care Provider [phone] Encounter Details Date Type Department Care Team (Late st Contact Info) Description 12/04/2019 8:29 AM CDT - 12/04/2019 9:31 AM CDT Hospital Encounter [facility]IM Gloria Murdock MD [address] [place] [address] Discharge Disposition: Discharge to home or self care Social History Tobacco Use Types Packs/Day Years Used Date Smoking Tobacco: Every Day Cigarettes 0.1 20 Alcohol Use Standard Drinks/Week Comments Not Currently 0 (1 standard drink = 0.6 oz pur e alcohol) Recovering alcoholic-whiskey Sex and Gender Information Value Date Recorded Sex Assigned at Not on file 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 Gender Identity Not on file Sexual Orientation Not on file 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 Not on file Not on file documented as of this encounter Last Filed Vital Signs Vital Sign Reading Time Taken Comments Blood Pressure 132/81 12/04/2019 8:42 AM CDT Pulse 75 12/04/2019 8:42 AM CDT Temperature 36.6 ??C (97.9 ??F) 12/04/2019 8:42 AM CD T Respiratory Rate - - Oxygen Saturation 97% 12/04/2019 8:42 AM CDT Inhaled Oxygen Concentration - - Weight - - Height - - Body Mass Index - - documented in this encounter Medications at Time [...] on filedocumented in this encounter Care Teams Loss Control Technician Relationship Specialty Start Date End Date Kely Tijerina NP [address] [place] [address] PCP - General 12/04/19 06/01/21 documented as of this encounter
--- OUTSIDE RECORDS SUMMARY | 2024-09-25 06:41 | XMS_ITS | Encounter Summary ---
Author Organization [facility] Address [address] [place] [address] Care Team Providers Care Creel Operator Name Role Phone Elton De La Fuente MD Primary Care Provider [phone] Reason for Referral * Injectables (Routine) - Closed Specialty Diagnoses / Procedures Referred By Contac t Referred To Contact Diagnoses Myalgia, other site Procedures Trigger Point Injection Kely Tijerina NP Phone: tel: fax: [facility] Medical [facility] Referral ID Status Reason Start Date Expiration Date Visits Re quested Visits Authorized [id number] Closed 09/11/2019 03/22/2021 1 1 LE SECURITY ARCHITECT * Injectables (Routine) - Closed Specialty Diagnoses / Procedures Referred By Contac t Referred To Contact Diagnoses Myalgia, other site Procedures Trigger Point Injection Kely Tijerina NP Phone: tel: fax: [facility] Medical [facility] Referral ID Status Reason Start Date Expiration Date Visits Re quested Visits Authorized [id number] Closed 09/11/2019 03/22/2021 1 1 LE SECURITY ARCHITECT * Diagnostic Imaging (Routine) - Closed Specialty Diagnoses / Procedures Referred By Contac t Referred To Contact Diagnoses Lumbar spondylosis Procedures XR Spine Lumbar W Bending 6 or More Views Kely Tijerina NP Phone: tel: fax: [facility] [address] [place] [address] Referral ID Status Reason Start Date Expiration Date Visits Re quested Visits Authorized [id number] Closed 09/05/2019 03/16/2021 1 1 LE SECURITY ARCHITECT Reason for Visit * Reason Comments Pain Encounter Details Date Type Department Care Team (Late st Contact Info) Description 09/11/2019 9:30 AM MOBILE SECURITY ARCHITECT Office Visit [facility] Orthopedics and Sports Medicine [address] [place] [address] Kely Tijerina NP [address] [facility] [address] [place] [address] Lumbar spondylosis; Myalgia, other site Social History Tobacco Use Types Packs/Day Years Used Date Smoking Tobacco: Every Day Cigarettes 0.1 20 Alcohol Use Standard Drinks/Week Comments Not Currently 0 (1 standard drink = 0.6 oz pur e alcohol) Recovering alcoholic-whiskey Sex and Gender Information Value Date Recorded Sex Assigned at Not on file Legal Sex Male 6:34 PM MOBILE SECURITY ARCHITECT Gender Identity Not on file Sexual Orientation Not on file 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 Not on file Not on file Not on file documented as of this encounter Last Filed Vital Signs Vital Sign Reading Time Taken Comments Blood Pressure - - Pulse - - Temperature - - Respiratory Rate - - Oxygen Saturation - - Inhaled Oxygen Concentration - - Weight 84.4 kg (186 lb) 09/11/2019 10:00 AM MOBILE SECURITY ARCHITECT Height 182.9 cm (6') 09/11/2019 10:00 AM MOBILE SECURITY ARCHITECT Body Mass Index 25.23 09/11/2019 10:00 AM MOBILE SECURITY ARCHITECT documented in this encounter Ordered Prescriptions Prescription Sig Dispense Quantity Refills Last Filled Start Date End Date cyclobenzaprine (FLEXERIL) 10 mg tablet Take 1 tablet nightly as needed 30 tablet 09/11/2019 0 documented in this encounter Progress Notes * Kely Tijerina NP - 09/11/2019 9:30 AM CSTAssociated Order(s): Trigger Point Injection; Trigger Point Injection Reason for Appointment: 1. Lumbar pain with bilateral leg pain History of Present Illness: Tramaine Marin Jr. is a 48 y.o. male arrived to the orthopedic department ambulatory, walking with no assisted devices for chief complaint of 4-8/10 lumbar pain across the lower lumbar region which has been intermittent since 2009 with progressive pain now becoming a deep ache, sharp pain with an occ asional sharp pain radiating down both legs. His pain symptoms are greatest upon awakening, with walking and he does have some pain with sleeping and bending. 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 His tried meloxicam which did not help and ibuprofen. He has tried home health care worker in [place] which did not help with pain reduction. 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 He does have a history of cocaine snorting with no use of cocaine for 15 years. He denies bowel or bladder dysfunction and denies saddle anesthesia symptoms. Examination: Ortho Exam Lumbar spine exam: ??? Inspection of the lumbar spine shows normal alignment, no surgical scars, no skin defects, no muscle atrophy, no masses, and no rashes. ??? Thoracic or lumbar spinous process pain. No pain with palpation ??? Lumbar paraspinal/facet pain. There is tenderness with palpation of the bilateral facet joints at L-4, L-5 and S1. ??? There are focal areas of hyperirritability with palpation over the lower lumbar quadratus lumborum muscle near L5 and the left gluteal muscle. ??? There is increased lumbar pain with extension and bilateral lateral bending. ??? Referred pain to the bilateral gluteal region ??? Straight leg raise produces negative radicular leg pain ??? Corona sign produces negative radicular leg pain with extension ??? Sensation is intact in the superficial peroneal nerve, deep peroneal nerve, sural, saphenous, and plantar nerves. ??? Deep tendon reflexes of the patella and achilles 2+. ??? There is no groin pain with logroll internal and external rotation of the hip. ??? There is full strength with hip adduction, abduction and flexion of the hip with (100) degrees of hip flexion, (50) degrees of external rotation and (30) degrees of internal rotation. ??? no tenderness with palpation of the bilateral greater trochanter. General examination: GENERAL APPEARANCE: Well-nourished, in no acute distress NECK/THYROID: Neck supple SKIN: No rashes, good turgor, warm and dry, no suspicious lesions HEART:Regular rate and rhythm LUNGS: Unlabored breathing ABDOMEN: Soft,no guarding MUSCULOSKELETAL: See lumbar spine exam above. EXTREMITIES: full and equal strength with knee extension, flexion, ankle dorsi and plantar flexion.There is no pain on palpation or swelling of the calf concerning for deep vein thrombosis. The lower extremities are warm and well perfused. 2+ dorsalis pedis pulses. Toes warm to touch with capillary refill < 2 seconds. NEUROLOGIC: Gait coordinated, deep tendon reflexes 2+ symmetrical, alert and oriented, muscle strength 5/5, sensory exam intact PSYCH: Cooperative with exam Imaging Reviewed: Lumbar spine x-ray September 11, 2019, impression per radiologist Dr. Trung Garcia: Hgve-te-ccahjlhn lumbar spondylosis, without acute radiographic abnormality. Procedure: Trigger Point Injection Performed by: Kely Tijerina NP Authorized by: Kely Tijerina NP Trigger Point Injection: Consent obtained:: Verbal Risks discussed, including, but not limited to:: Pain Alternatives discussed:: Alternative treatment Site/side marked: Yes Indications: Myalgia Procedure Details: Location: L quadratus lumborum and R quadratus lumborum Local anesthetic: Ethyl chloride spray Ultrasound guidance: No Needle size: 22 G Number of muscles: 1 or 2 Approach: Posterior 2 mL lidocaine 10 mg/mL (1 %); 80 mg methylPREDNISolone acetate 40 mg/mL Patient tolerance: Patient tolerated the procedure well with no immediate complications Trigger Point Injection Performed by: Kely Tijerina NP Authorized by: Kely Tijerina NP Trigger Point Injection: Consent obtained:: Verbal Risks discussed, including, but not limited to:: Pain Alternatives discussed:: Alternative treatment Site/side marked: Yes Indications: Myalgia Procedure Details: Location: L gluteus be Local anesthetic: Ethyl chloride spray Ultrasound guidance: No Needle size: 22 G Number of muscles: 1 or 2 Approach: Posterior 60 mg ketorolac 30 mg/mL (1 mL) Patient tolerance: Patient tolerated the procedure well with no immediate complications Assessment: Diagnosis Plan 1. Lumbar spondylosis XR Spine Lumbar W Bending 6 or More Views 2. Myalgia, other site Trigger Point Injection Trigger Point Injection Plan: ??? I reviewed the x-ray of the lumbar spine with Tramaine. ??? I have recommended formal physical therapy which she has declined. He was provided with Kelton back exercises which he should do at least daily. I have discussed obtaining an EMG/NCS study of the bilateral lower extremities which he has declined. ??? I have prescribed Flexeril 10 mg p.o. HS p.r.n. #30. He currently uses OTC ibuprofen ??? Today I gave Tramaine cortisone trigger point injections to the bilateral lower lumbar quadratus lumborum muscles in the left gluteal muscle where there were focal areas of hyperirritability with palpation. ??? Today I gave Tramaine A Toradol 60 mg IM injection for his chronic myalgia type symptoms. ??? I have discussed the importance of stopping use of cigarette/nicotine. Allergies: Patient has no known allergies. Medications: Current Outpatient Medications: ??? cyclobenzaprine (FLEXERIL) 10 mg tablet, Take 1 tablet nightly as needed, Disp: 30 tablet, Rfl:0 Review of Systems: Review of Systems Constitutional: Negative for chills and fever. Respiratory: Negative for shortness of breath. Cardiovascular: Negative for chest pain. Gastrointestinal: Negative for abdominal pain. Genitourinary: Negative for dysuria. Musculoskeletal: Positive for back pain (Lumbar pain with bilateral leg pain). Skin: Negative for rash. Neurological: Positive for tingling (Bilateral leg). Negative for focal weakness. Endo/Heme/Allergies: Does not bruise/bleed easily. Psychiatric/Behavioral: The patient is not nervous/anxious. Past Medical History: Past Medical History: Diagnosis Date ??? Degenerative disc disease, lumbar ??? Kidney stone ??? Lumbar spondylosis Past Surgical History: Past Surgical History: Procedure Laterality Date ??? EYE SURGERY Bilateral as young child Social History: Social History Occupational History ??? 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 Smoking status: Current Every Day Smoker Packs/day: 0.05 Years: 20.00 Pack years: 1.00 Types: Cigarettes Substance and Sexual Activity ??? Alcohol use: Not Currently Comment: Recovering alcoholic-whiskey ??? Drug use: Not Currently Types: Cocaine Comment: in past ??? Sexual activity: Not on file Vital Signs: Height 182.9 cm (6'), weight 84.4 kg (186 lb). BMI Readings from Last 1 Encounters: 09/11/19 25.23 kg/m?? Kely Tijerina NP LE SECURITY ARCHITECT documented in this encounter Plan of Treatment Not on file documented as of this encounter Procedures Procedure Name Priority Date/Time Associated Diagnosis Comments ID INJECTION SINGLE/CASH APPLICATIONS ANALYST TRIGGER POINT 1/2 MUSCLES Routine 09/11/2019 9:30 AM MOBILE SECURITY ARCHITECT Myalgia, other site ID INJECTION SINGLE/CASH APPLICATIONS ANALYST TRIGGER POINT 1/2 MUSCLES Routine 09/11/2019 9:30 AM MOBILE SECURITY ARCHITECT Myalgia, other site documented in this encounter Results * XR Spine Lumbar W Bending 6 or More Views (09/11/2019 9:34 AM MOBILE SECURITY ARCHITECT) Anatomical Region Laterality Modality Spine N/A Radiographic Riddhi ging 09/12/2019 10:5 3 AM MOBILE SECURITY ARCHITECT Narrative 09/12/2019 10:55 AM MOBILE SECURITY ARCHITECT Patient Name: TRAMAINE MARIN JR ?Ordering Dr: Kley Tijerina ANP ?? D.O.B: 1970 ? Exam Date: 09/11/19 ?? 0934 ?? Age: 48 ?Sex: Male ? MR#: [id number] ?? Loc: ? RADIOLOGY REPORT ?? Order #[id number] ?? Radiology ? Lumbar Spine Bending 6 Vw Min ? Signed ?? EXAM DESCRIPTION: ??Lumbar Spine Bending 6 Vw Min ? REASON FOR STUDY: ??Pain in low back for 6 months, no injury ? TECHNIQUE: ??6 view examination of the lumbar spine is performed. ? COMPARISON: ??CT abdomen and pelvis 04/28/2016. ? FINDINGS: ? No radiographic evidence of acute fracture or malalignment. ??No abnormal ?? listhesis with flexion or extension. ? Vertebral bodies are unchanged in height. ??There is multilevel ?? xmxr-uy-gchfaemw facet arthropathy, greatest within the lower lumbar spine. ? There is mild diffuse degenerative disc disease, moderate at the L4-L5 level. ? IMPRESSION: ??Fsnl-bb-nrdnhrwo lumbar spondylosis, without acute radiographic ?? abnormality. ? THIS IS AN ELECTRONICALLY VERIFIED FINAL REPORT ?? 09/12/2019 10:55 AM - Electronically signed by Trung Garcia M.D. ?? Trung Garcia M.D. ? RT ?? D: ??09/12/2019 10:55 AM ?? T: ? Report ID: [id number] ?? Reading Location: ??[id number] ? REPORT ELECTRONICALLY SIGNED IN OTHER VENDOR SYSTEM ?? Resulting Agency Comment O Procedure Note Trung Garcia MD - 09/12/2019 Patient Name: TRAMAINE MARIN Mitzi Dr: Kely Tijerina D.O.B: 1970 Exam Date: 09/11/19 0934 Age: 48 Sex: Male MR#: [id number] Loc: RADIOLOGY REPORT Order #[id number] Radiology Lumbar Spine Bending 6 Vw Min Signed EXAM DESCRIPTION: Lumbar Spine Bending 6 Vw Min REASON FOR STUDY: Pain in low back for 6 months, no injury TECHNIQUE: 6 view examination of the lumbar spine is performed. COMPARISON: CT abdomen and pelvis 04/28/2016. FINDINGS: No radiographic evidence of acute fracture or malalignment. No abnormal listhesis with flexion or extension. Vertebral bodies are unchanged in height. There is multilevel enuc-gw-aokgtmlh facet arthropathy, greatest within the lower lumbarspine. There is mild diffuse degenerative disc disease, moderate at the L4-J0onjyh. IMPRESSION: Cxrm-zh-cufarmre lumbar spondylosis, without acuteradiographic abnormality. THIS IS AN ELECTRONICALLY VERIFIED FINAL REPORT 09/12/2019 10:55 AM - Electronically signed by Trung Garcia M.D. RT T: Report ID: [id number] Reading Location: [place] [id number] REPORT ELECTRONICALLY SIGNED IN OTHER VENDOR SYSTEM us Kely Tijerina NP IMG XR PROCEDURES Final Res ult * ID INJECTION SINGLE/CASH APPLICATIONS ANALYST TRIGGER POINT 1/2 MUSCLES (09/11/2019 9:30 AM MOBILE SECURITY ARCHITECT) Kely Man NP - 09/11/2019 9:30 AM MOBILE SECURITY ARCHITECT Kely Tijerina NP ? 09/12/2019 ??9:30 PM Trigger Point Injection Performed by: Kely Tijerina NP Authorized by: Kely Tijerina NP Trigger Point Injection: ??Consent obtained:: ??Verbal ??Risks discussed, including, but not limited to:: ??Pain ??Alternatives discussed:: ??Alternative treatment ??Site/side marked: Yes ?Indications: ??Myalgia Procedure Details: ??Location: ??L gluteus be ??Local anesthetic: ??Ethyl chloride spray ??Ultrasound guidance: No ?Needle size: ??22 G ??Number of muscles: ??1 or 2 ??Approach: ??Posterior ?? 60 mg ketorolac 30 mg/mL (1 mL) ??Patient tolerance: ??Patient tolerated the procedure well with no immediate complications us Kely Tijerina BELLY DUMP DRIVER IN CLINIC/BEDSIDE ORDERABLE S Final Result * ID INJECTION SINGLE/CASH APPLICATIONS ANALYST TRIGGER POINT 1/2 MUSCLES (09/11/2019 9:30 AM MOBILE SECURITY ARCHITECT) Kely Man NP - 09/11/2019 9:30 AM MOBILE SECURITY ARCHITECT Kely Tijerina NP ? 09/12/2019 ??9:30 PM Trigger Point Injection Performed by: Kely Tijerina NP Authorized by: Kely Tijerina NP Trigger Point Injection: ??Consent obtained:: ??Verbal ??Risks discussed, including, but not limited to:: ??Pain ??Alternatives discussed:: ??Alternative treatment ??Site/side marked: Yes ?Indications: ??Myalgia Procedure Details: ??Location: ??L quadratus lumborum and R quadratus lumborum ??Local anesthetic: ??Ethyl chloride spray ??Ultrasound guidance: No ?Needle size: ??22 G ??Number of muscles: ??1 or 2 ??Approach: ??Posterior ?? 2 mL lidocaine 10 mg/mL (1 %); 80 mg methylPREDNISolone acetate 40 mg/mL ??Patient tolerance: ??Patient tolerated the procedure well with no immediate complications us Kely Tijerina BELLY DUMP DRIVER IN CLINIC/BEDSIDE ORDERABLE S Final Result documented in this encounter Visit Diagnoses Diagnosis Lumbar spondylosis Lumbosacral spondylosis without myelopathy Myalgia, other site Lumbar pain Lumbago Neck pain Cervicalgia documented in this encounter Administered Medications Inactive Administered Medications - up to 3 most recent administrations Medication Order MAR Action Action Date Dose Rate Site ketorolac (TORADOL) injection 60 mg 60 mg, One-Time Injection, Starting on Mon09/11/19 at 1054, For 1 doseIndications:Myalgia, other site Given 09/11/2019 10:54 AM MOBILE SECURITY ARCHITECT 60 mg lidocaine (XYLOCAINE) 10 mg/mL (1 %) injection 2 mL 2 mL, One-Time Injection, Starting on Mon09/11/19 at 1052, For 1 dose, Indications: Administration of Local AnesthesiaIndications:Administrati on of Local Anesthesia Given 09/11/2019 10:52 AM MOBILE SECURITY ARCHITECT 2 mL methylPREDNISolone acetate (DEPO-medrol) injection 80 mg 80 mg, intra-articular, One-Time Injection, Starting on Mon09/11/19 at 1052, For 1 doseIndications:Myalgia, other site Given 09/11/2019 10:52 AM MOBILE SECURITY ARCHITECT 80 mg documented in this encounter Care Teams Creel Operator Relationship Specialty Start Date End Date Elton De La Fuente MD PCP - General Family Medicine 09/04/19 12/03/19 documented as of this encounter
--- OUTSIDE RECORDS SUMMARY | 2024-09-25 06:41 | XMS_ITS | Encounter Summary ---
Author Organization [facility] Healthcare Address [address] [place] [address] Care Team Providers Care Patent Engineer Name Role Phone Elton De La Fuente MD Primary Care Provider [phone] Reason for Referral * Diagnostic Imaging (Routine) - Closed Specialty Diagnoses / Procedures Referred By Contac t Referred To Contact Diagnoses Chronic neck and back pain Procedures XR Spine Cervical Complete 4 or 5 Views Kely Tijerina NP Phone: tel: fax: [address] [address] Referral ID Status Reason Start Date Expiration Date Visits Re quested Visits Authorized [id number] Closed 10/03/2019 04/13/2021 1 1 AT CUTTER MACHINE * Diagnostic Imaging (Routine) - Closed Specialty Diagnoses / Procedures Referred By Contac t Referred To Contact Diagnoses Lumbar spondylosis Procedures XR Spine Lumbar W Bending 6 or More Views Kely Tijerina NP Phone: tel: fax: [address] [address] Referral ID Status Reason Start Date Expiration Date Visits Re quested Visits Authorized [id number] Closed 09/05/2019 03/16/2021 1 1 AT CUTTER MACHINE Encounter Details Date Type Department Care Team (Late st Contact Info) Description 09/11/2019 9:32 AM NOUGAT CUTTER MACHINE Hospital Encounter [facility] OP INTERIM Kely Tijerina, ASPHALT HEATER OPERATOR [address] [place] [address] [place] [id number] Lumbar pain; Neck pain Social History Tobacco Use Types Packs/Day Years Used Date Smoking Tobacco: Every Day Cigarettes 0.1 20 Alcohol Use Standard Drinks/Week Comments Not Currently 0 (1 standard drink = 0.6 oz pur e alcohol) Recovering alcoholic-whiskey Sex and Gender Information Value Date Recorded Sex Assigned at Not on file Legal Sex Male 6:34 PM NOUGAT CUTTER MACHINE Gender Identity Not on file Sexual Orientation Not on file 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 Not on file Not on file Not on file documented as of this encounter Plan of Treatment Not on file documented as of this encounter Procedures Procedure Name Priority Date/Time Associated Diagnosis Comments XR SPINE CERVICAL COMPLETE 4 OR 5 VW Schedule Routine, Read Routine (OP Routine) 10/11/2019 8:07 AM NOUGAT CUTTER MACHINE Neck pain XR SPINE LUMBAR W BENDING 6 OR MORE VIEWS Schedule Routine, Read Routine (OP Routine) 09/11/2019 9:34 AM NOUGAT CUTTER MACHINE Lumbar pain documented in this encounter Results * XR Spine Cervical Complete 4 or 5 Views (10/11/2019 8:07 AM NOUGAT CUTTER MACHINE) Anatomical Region Laterality Modality Spine N/A Radiographic Riddhi ging 10/11/2019 12:5 5 PM NOUGAT CUTTER MACHINE Narrative 10/11/2019 1:00 PM NOUGAT CUTTER MACHINE Patient Name: TRAMAINE MARIN ?Ordering : Kely Tijerina ?? D.O.B: 1970 ? Exam Date: /17/20 ?? 0807 ?? Age: 48 ?Sex: Male ? MR#: [id number] ?? Loc: ? RADIOLOGY REPORT ?? Order #[id number] ?? Radiology ? Cervical Spine 4 View [...] T: ??10/11/2019 12:57 PM ? Report ID: [id number] ?? Reading Location: ??[id number] ? REPORT ELECTRONICALLY SIGNED IN OTHER VENDOR SYSTEM ?? Resulting Agency Comment O Procedure Note Alonso Gould MD - 10/11/2019 Patient Name: TRAMAINE MARIN Dr: Kely TijerinaO.B: 1970 Exam Date: 10/11/19 0807 Age: 48 Sex: Male MR#: [id number] Loc: RADIOLOGY REPORT Order #[id number] Radiology Cervical Spine 4 View Min Signed [...] Electronically signed by Alonso GRAHAM Report ID: [id number] Reading Location: [place] [address] REPORT ELECTRONICALLY SIGNED IN OTHER VENDOR SYSTEM us Kely Tijerina ASPHALT HEATER OPERATOR IMG XR PROCEDURES Final Res ult * XR Spine Lumbar W Bending 6 or More Views (09/11/2019 9:34 AM NOUGAT CUTTER MACHINE) Anatomical Region Laterality Modality Spine N/A Radiographic Riddhi ging 09/12/2019 10:5 3 AM NOUGAT CUTTER MACHINE Narrative 09/12/2019 10:55 AM NOUGAT CUTTER MACHINE Patient Name: TRAMAINE MARIN JR ?Ordering Dr: Kely Tijerina ?? D.O.B: 1970 ? Exam Date: 09/11/19 ?? 0934 ?? Age: 48 ?Sex: Male ? MR#: [id number] ?? Loc: ? RADIOLOGY REPORT ?? Order #[id number] ?? Radiology ? Lumbar Spine Bending 6 [...] unchanged in height. ??There is multilevel ?? mjbp-vj-porklxvh facet arthropathy, greatest within the lower lumbar spine. ? There is mild diffuse degenerative disc disease, moderate at the L4-L5 level. ? IMPRESSION: ??Lkal-if-nvjnvanf lumbar spondylosis, without acute radiographic ?? abnormality. ? THIS IS AN ELECTRONICALLY VERIFIED FINAL REPORT ?? 09/12/2019 10:55 AM - Electronically signed by Trung Garcia M.D. ?? Trung Garcia M.D. ? RT ?? D: ??09/12/2019 10:55 AM ?? T: ? Report ID: [id number] ?? Reading Location: ??[id number] ? REPORT ELECTRONICALLY SIGNED IN OTHER VENDOR SYSTEM ?? Resulting Agency Comment O Procedure Note Trung Garcia MD - 09/12/2019 Patient Name: MICHELETRAMAINENahomy Cartagena Dr: Kely Tijerina D.O.B: 1970 Exam Date: 09/11/19 0934 Age: 48 Sex: Male MR#: [id number] Loc: RADIOLOGY REPORT Order #[id number] Radiology Lumbar Spine Bending 6 Vw Min [...] are unchanged in height. There is multilevel fovh-ip-ydrzenlz facet arthropathy, greatest within the lower lumbarspine. There is mild diffuse degenerative disc disease, moderate at the L4-R1lsxye. IMPRESSION: Qiza-kx-tayrxomp lumbar spondylosis, without acuteradiographic abnormality. THIS IS AN ELECTRONICALLY VERIFIED FINAL REPORT 09/12/2019 10:55 AM - Electronically signed by Trung Garcia M.D. RT T: Report ID: [id number] Reading Location: [place] [address] REPORT ELECTRONICALLY SIGNED IN OTHER VENDOR SYSTEM us Kely Tijerina ASPHALT HEATER OPERATOR IMG XR PROCEDURES Final Res ult documented in this encounter Visit Diagnoses Diagnosis Lumbar pain Lumbago Neck pain Cervicalgia documented in this encounter Care Teams Patent Engineer Relationship Specialty Start Date End Date Elton De La Fuente MD PCP - General Family Medicine 09/04/19 12/03/19 documented as of this encounter
--- OUTSIDE RECORDS SUMMARY | 2024-09-25 06:41 | XMS_ITS | Encounter Summary ---
Author Organization [facility] Care Team Providers Care Market Research Interviewer Name Role Phone Elton De La Fuente MD Primary Care Provider [phone] Encounter Details Date Type Department Care Team (Latest Contact Info) Description 09/11/2019 Travel Social History Tobacco Use Types Packs/Day Years Used Date Smoking Tobacco: Every Day Cigarettes 0.1 20 Alcohol Use Standard Drinks/Week Comments Not Currently 0 (1 standard drink = 0.6 oz pur e alcohol) Recovering alcoholic-whiskey Sex and Gender Information Value Date Recorded Sex Assigned at Not on file Legal Sex Male 6:34 PM RN MIDWIFE Gender Identity Not on file Sexual Orientation Not on file 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
--- OUTSIDE RECORDS SUMMARY | 2024-09-25 06:41 | XMS_ITS | Encounter Summary ---
Author Organization [facility] Healthcare Address [address] [place] [id number] Care Team Providers Care Sterilization Specialist Name Role Phone Unavailable Primary Care Provider Unavailabl e Encounter Details Date Type Department Care Team (Latest Contact Info) Description 10/09/2016 11:44 PM LEAD TEACHER - 10/10/2016 3:50 AM LEAD TEACHER Hospital Encounter [facility] Lennox Napier MD [address] [place] [address] Uncomplicated alcohol abuse; Nicotine dependence, uncomplicated Social History Tobacco Use Types Packs/Day Years Used Date Smoking Tobacco: Never Assessed Sex and Gender Information Value Date Recorded Sex Assigned at Not on file Legal Sex Male 6:34 PM LEAD TEACHER Gender Identity Not on file Sexual Orientation Not on file documented as of this encounter Last Filed Vital Signs Vital Sign Reading Time Taken Comments Blood Pressure 109/80 10/09/2016 11:47 PM LEAD TEACHER Pulse 102 10/09/2016 11:47 PM LEAD TEACHER Temperature 36.4 ??C (97.5 ??F) 10/09/2016 11:[address] Respiratory Rate - - Oxygen Saturation 95% 10/09/2016 11:47 PM LEAD TEACHER Inhaled Oxygen Concentration - - Weight 91.4 kg (201 lb 8 oz) 10/09/2016 11:47 PM LEAD TEACHER Height 182.9 cm (6') 10/09/2016 11:47 PM LEAD TEACHER Body Mass Index 27.33 10/09/2016 11:47 PM LEAD TEACHER documented in this encounter Plan of Treatment Not on file documented as of this encounter Procedures Procedure Name Priority Date/Time Associated Diagnosis Comments CBC WITH AUTO DIFFERENTIAL Routine 10/10/2016 1:57 AM LEAD TEACHER ETHANOL Routine 10/10/2016 1:57 AM LEAD TEACHER COMPREHENSIVE METABOLIC PANEL Routine 10/10/2016 1:57 AM LEAD TEACHER XR CHEST PA LATERAL 2 VIEWS Routine 10/10/2016 12:00 AM LEAD TEACHER documented in this encounter Results * (ABNORMAL) Comprehensive metabolic panel (10/10/2016 1:57 AM LEAD TEACHER) [facility] Sodium 143 135 - 145 mmol/L 10/10/2016 2:26 AM [employer] HISTORICAL RESULTS Potassium 3.8 3.3 - 5.1 mmol/L 10/10/2016 2:26 AM [employer] HISTORICAL RESULTS Chloride 102 96 - 108 mmol/L 10/10/2016 2:26 AM [employer] HISTORICAL RESULTS Carbon Dioxide 27 22 - 32 mmol/L 10/10/2016 2:26 AM [employer] HISTORICAL RESULTS Anion Gap 14 7 - 16 10/10/2016 2:26 AM [employer] HISTORICAL RESULTS Glucose 108(H) 70 - 100 mg/dL 10/10/2016 2:26 AM [employer] HISTORICAL RESULTS BUN 9 6 - 20 mg/dL 10/10/2016 2:26 AM [employer] HISTORICAL RESULTS Creatinine 1.1 0.5 - 1.3 mg/dL 10/10/2016 2:26 AM [employer] HISTORICAL RESULTS Comment: NOTE: Estimated GFR (Cockroft-Gault) will NOT be calculated unless patient Height and Weight were entered. Also, Kidney Disease Stage (GFR) and Estimated GFR (Cockroft-Gault) will NOT be calculated if Creatinine result is <0.2. Kidney Disease Stage 77 mL/MIN 10/10/2016 2:26 AM [employer] HISTORICAL RESULTS Comment: NOTE; ??The GFR is an estimated [...] mL/min ? Kidney failure or on dialysis @ Est GFR (Cockcroft-G) 100 ml/MIN 10/10/2016 2:26 AM [employer] HISTORICAL RESULTS Comment: Estimated GFR(Cockroft-Gault)is used to calculate patient medication dosage Calcium 8.9 8.6 - 10.0 mg/dL 10/10/2016 2:26 AM [employer] HISTORICAL RESULTS Total Protein 7.4 6.4 - 8.3 g/dL 10/10/2016 2:26 AM [employer] HISTORICAL RESULTS Albumin 4.5 3.5 - 5.2 g/dL 10/10/2016 2:26 AM [employer] HISTORICAL RESULTS Globulin 2.9 2.3 - 3.5 gm/dL 10/10/2016 2:26 AM [facility] [employer] HISTORICAL RESULTS Albumin/Globulin Ratio 1.6 1.1 - 1.8 10/10/2016 2:26 AM [employer] HISTORICAL RESULTS Total Bilirubin 0.4 0.0 - 1.2 mg/dL 10/10/2016 2:26 AM [employer] HISTORICAL RESULTS AST 22 0 - 40 U/L 10/10/2016 2:26 AM [employer] HISTORICAL RESULTS ALT 25 0 - 41 U/L 10/10/2016 2:26 AM [employer] HISTORICAL RESULTS Alkaline Phosphatase 90 40 - 129 U/L 10/10/2016 2:26 AM LEAD TEACHER [facility] [employer] HISTORICAL RESULTS 10/10/2016 1:57 AM [facility] 10/10/2016 2:00 AM LEAD TEACHER us Lennox Napier MD LAB BLOOD ORDERABLES Final Resu lt [employer] HISTORICAL RESULTS * (ABNORMAL) CBC with auto differential (10/10/2016 1:57 AM LEAD TEACHER) WBC 9.7 4.6 - 10.2 x10 3/ul 10/10/2016 2:03 AM LEAD TEACHER [employer] HISTORICAL RESULTS RBC 5.76(H) 4.11 - 5.71 x10 6/ul 10/10/2016 2:03 AM LEAD TEACHER [employer] HISTORICAL RESULTS Hemoglobin 17.4(H) 13.0 - 17.0 g/dl 10/10/2016 2:03 AM LEAD TEACHER [employer] HISTORICAL RESULTS Hct 50.5(H) 38.2 - 48.5 % 10/10/2016 2:03 AM LEAD TEACHER [employer] HISTORICAL RESULTS MCV 87.7 80.0 - 97.0 fl 10/10/2016 2:03 AM LEAD TEACHER [employer] HISTORICAL RESULTS MCH 30.2 27.0 - 31.2 pg 10/10/2016 2:03 AM LEAD TEACHER [employer] HISTORICAL RESULTS MCHC 34.5 31.8 - 35.4 g/dl 10/10/2016 2:03 AM LEAD TEACHER [employer] HISTORICAL RESULTS RDW 12.8 11.6 - 14.8 % 10/10/2016 2:03 AM [employer] HISTORICAL RESULTS Plt Count 224 124 - 400 x10 3/ul 10/10/2016 2:03 AM LEAD TEACHER [employer] HISTORICAL RESULTS MPV 10.7(H) 7.4 - 10.4 fl 10/10/2016 2:03 AM LEAD TEACHER [employer] HISTORICAL RESULTS Neut % 65.3 37.0 - 85.0 % 10/10/2016 2:03 AM LEAD TEACHER [employer] HISTORICAL RESULTS Immature Gran % 0.4 0.0 - 3.0 % 10/10/2016 2:03 AM [employer] HISTORICAL RESULTS Lymph % 27.3 5.0 - 45.0 % 10/10/2016 2:03 AM LEAD TEACHER [employer] HISTORICAL RESULTS Tate % 5.9 3.0 - 15.0 % 10/10/2016 2:03 AM [employer] HISTORICAL RESULTS Eos % 0.8 0.0 - 7.0 % Baso % 0.3 0.0 - 2.0 % Absolute Neuts (auto) 6.3 1.7 - 8.7 x10 3/ul Immature Gran # 0.0 0.0 - 0.3 x10 3/ul Absolute Lymphs (auto) 2.7 0.2 - 4.6 x10 3/ul Absolute Monos (auto) 0.6 0.1 - 1.5 x10 3/ul Absolute Eos (auto) 0.1 0.0 - 0.7 x10 3/ul Absolute Basos (auto) 0.0 0.0 - 0.2 x10 3/ul 10/10/2016 1:57 AM LEAD TEACHER 10/10/2016 2:00 AM [facility] Lennox Napier MD LAB BLOOD ORDERABLES Final Resu lt [facility] HISTORICAL RESULTS * Ethanol (10/10/2016 1:57 AM LEAD TEACHER) Ethyl Alcohol 199 mg/dL Comment:% = mg/dL x .001 10/10/2016 1:57 AM LEAD TEACHER 10/10/2016 2:00 AM [facility] Lennox Napier MD LAB BLOOD ORDERABLES Final Resu lt [facility] HISTORICAL RESULTS * XR Chest Pa Lateral 2 Views (10/10/2016 12:00 AM LEAD TEACHER) Anatomical Region Laterality Modality Body, Chest N/A Radiographic Riddhi ging 10/10/2016 Narrative 10/10/2016 1:27 AM LEAD TEACHER Examination: Chest radiograph History: Cough for 2 weeks, tobacco use Comparison: 02/23/2009 Technique: 2 views obtained Findings: The cardiomediastinal silhouette is unremarkable. ??No focal consolidation. ??No pleural effusion or pneumothorax. Impression: No acute abnormality. THIS IS AN ELECTRONICALLY VERIFIED REPORT 10/10/2016 1:23 AM: ??Ilya Quispe M.D. ?? Francis Jones:rosalba 01:23 AM 01:23 AM [facility] [EOD] Procedure Note Provider, MD Yony - 02/10/2021 Examination: Chest radiograph History: Cough for 2 weeks, tobacco use Comparison: 02/23/2009 Technique: 2 views obtained Findings: The cardiomediastinal silhouette is unremarkable. No focal consolidation. No pleural effusion or pneumothorax. Impression: No acute abnormality. THIS IS AN ELECTRONICALLY VERIFIED REPORT 10/10/2016 1:23 AM: Ilya Quispe M.D. Francis Jones:rosalba 01:23 AM 01:23 AM [facility] [EOD] Lennox Napier MD IMG XR PROCEDURES Final Result documented in this encounter Visit Diagnoses Diagnosis Uncomplicated alcohol abuse Nicotine dependence, uncomplicated documented in this encounter
--- OUTSIDE RECORDS SUMMARY | 2024-09-25 06:41 | XMS_ITS | Encounter Summary ---
Author Organization [facility] Healthcare Address [address] [place] [address] Care Team Providers Care Client Service Representative Name Role Phone Unavailable Primary Care Provider Unavailabl e Encounter Details Date Type Department Care Team (Latest Contact Info) Description 04/28/2016 8:35 AM CDT - 04/28/2016 10:30 AM CDT [facility] Trenton Ventura MD [address] [place] [address] Calculus of kidney with calculus of ureter Social History Tobacco Use Types Packs/Day Years Used Date Smoking Tobacco: Never Assessed Sex and Gender Information Value Date Recorded Sex Assigned at Not on file Legal Sex Male 6:34 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 Gender Identity Not on file Sexual Orientation Not on file documented as of this encounter Last Filed Vital Signs Vital Sign Reading Time Taken Comments Blood Pressure 155/75 04/28/2016 8:36 AM CDT Pulse 74 04/28/2016 8:36 AM CDT Temperature 36.8 ??C (98.2 ??F) 04/28/2016 8:36 AM CD T Respiratory Rate - - Oxygen Saturation 96% 04/28/2016 8:36 AM CDT Inhaled Oxygen Concentration - - Weight 87.5 kg (193 lb) 04/28/2016 8:36 AM CDT Height 182.9 cm (6') 04/28/2016 8:36 AM CDT Body Mass Index 26.18 04/28/2016 8:36 AM CDT documented in this encounter Plan of Treatment Not on file documented as of this encounter Procedures Procedure Name Priority Date/Time Associated Diagnosis Comments CBC WITH AUTO DIFFERENTIAL Routine 04/28/2016 8:51 AM CDT COMPREHENSIVE METABOLIC PANEL Routine 04/28/2016 8:51 AM CDT URINALYSIS AND REFLEX TO MICROSCOPIC AND CULTURE Routine 04/28/2016 8:[address] ABDOMEN PELVIS WO CONTRAST Routine 04/28/2016 12:00 AM CDT documented in this encounter Results * (ABNORMAL) Comprehensive metabolic panel (04/28/2016 8:51 AM CDT) Sodium 138 135 - 145 mmol/L 04/28/2016 9:31 AM [employer] HISTORICAL RESULTS Potassium 4.0 3.3 - 5.1 mmol/L 04/28/2016 9:31 AM [employer] [facility] HISTORICAL RESULTS Chloride 98 96 - 108 mmol/L 04/28/2016 9:31 AM [employer] [facility] HISTORICAL RESULTS Carbon Dioxide 24 22 - 32 mmol/L 04/28/2016 9:31 AM [employer] [facility] HISTORICAL RESULTS Anion Gap 16 7 - 16 04/28/2016 9:31 AM [employer] HISTORICAL RESULTS Glucose 116(H) 70 - 100 mg/dL 04/28/2016 9:31 AM [employer] HISTORICAL RESULTS BUN 11 6 - 20 mg/dL 04/28/2016 9:31 AM [employer] HISTORICAL RESULTS Creatinine 1.2 0.5 - 1.3 mg/dL 04/28/2016 9:31 AM [employer] HISTORICAL RESULTS Comment: NOTE: Estimated GFR (Cockroft-Gault) will NOT be calculated unless patient Height and Weight were entered. Also, Kidney Disease Stage (GFR) and Estimated GFR (Cockroft-Gault) will NOT be calculated if Creatinine result is <0.2. Kidney Disease Stage 70 mL/MIN 04/28/2016 9:31 AM [employer] HISTORICAL RESULTS Comment: NOTE; ??The GFR is an estimated value using the creatinine, sex, age, and race of the patient. THE ESTIMATED GFR IS VALIDATED FOR AGES 18-70 YEARS STAGE ?mL/Min ?DESCRIPTION ??1 ?90 mL/min or more ?Normal or elevated GFR ??2 ? 60-89 mL/min ?Mildly decreased GFR ??3 ? 30-59 mL/min ?Moderately decreased GFR ??4 ? 15-29 mL/min ?Severely decreased GFR ??5 ? <15 mL/min ? Kidney failure or on dialysis @ Est GFR (Cockcroft-G) 90 ml/MIN 04/28/2016 9:31 AM [facility] [facility] HISTORICAL RESULTS Calcium 9.6 8.6 - 10.0 mg/dL 04/28/2016 9:31 AM [facility] [employer] [facility] HISTORICAL RESULTS Total Protein 7.6 6.4 - 8.3 g/dL 04/28/2016 9:31 AM [facility] [facility] HISTORICAL RESULTS Albumin 4.7 3.5 - 5.2 g/dL 04/28/2016 9:31 AM [facility] [facility] HISTORICAL RESULTS Globulin 2.9 2.3 - 3.5 gm/dL 04/28/2016 9:31 AM [facility] Albumin/Globulin Ratio 1.6 1.1 - 1.8 04/28/2016 9:31 AM [facility] [facility] HISTORICAL RESULTS Total Bilirubin 1.1 0.0 - 1.2 mg/dL 04/28/2016 9:31 AM [facility] [facility] HISTORICAL RESULTS AST 30 0 - 40 U/L 04/28/2016 9:31 AM [facility] [facility] HISTORICAL RESULTS ALT 29 0 - 41 U/L 04/28/2016 9:31 AM [facility] HISTORICAL RESULTS Alkaline Phosphatase 91 40 - 129 U/L 04/28/2016 9:31 AM [facility] 04/28/2016 8:51 AM CDT 04/28/2016 9:00 AM CDT us Trenton Ventura MD LAB BLOOD ORDERABLES Fin al Result [facility] [employer] HISTORICAL RESULTS * (ABNORMAL) CBC with auto differential (04/28/2016 8:51 AM CDT) WBC 8.6 4.6 - 10.2 x10 3/ul RBC 5.68 4.11 - 5.71 x10 6/ul Hemoglobin 17.6(H) 13.0 - 17.0 g/dl Hct 50.8(H) 38.2 - 48.5 % MCV 89.4 80.0 - 97.0 fl MCH 31.0 27.0 - 31.2 pg MCHC 34.6 31.8 - 35.4 g/dl RDW 13.2 11.6 - 14.8 % Plt Count 168 124 - 400 x10 3/ul MPV 11.6(H) 7.4 - 10.4 fl Neut % 65.8 37.0 - 85.0 % 04/28/2016 9:04 AM CDT [facility] [employer] HISTORICAL RESULTS Immature Gran % 0.5 0.0 - 3.0 % 04/28/2016 9:04 AM CDT [facility] [employer] HISTORICAL RESULTS Lymph % 21.8 5.0 - 45.0 % Foard % 9.7 3.0 - 15.0 % Eos % 1.4 0.0 - 7.0 % Baso % 0.8 0.0 - 2.0 % Absolute Neuts (auto) 5.6 1.7 - 8.7 x10 3/ul Immature Gran # 0.0 0.0 - 0.3 x10 3/ul Absolute Lymphs (auto) 1.9 0.2 - 4.6 x10 3/ul Absolute Monos (auto) 0.8 0.1 - 1.5 x10 3/ul Absolute Eos (auto) 0.1 0.0 - 0.7 x10 3/ul Absolute Basos (auto) 0.1 0.0 - 0.2 x10 3/ul 04/28/2016 8:51 AM CDT 04/28/2016 9:00 AM CDT us Trenton Ventura MD LAB BLOOD ORDERABLES Fin al Result [facility] HISTORICAL RESULTS * (ABNORMAL) Urinalysis reflex to microscopic and culture (04/28/2016 8:48 AM CDT) Ur Collection Type CLEAN CATCH Ur Culture Indicated? C&S NOT INDICATED Urine Color YELLOW YELLOW Urine Clarity HAZY CLEAR Urine Glucose (UA) NORMAL NORMAL mg/dL Urine Bilirubin NEGATIVE NEGATIVE mg/dl Urine Ketones NEGATIVE NEGATIVE mg/dL Ur Specific Archbald 1.023 1.005 - 1.025 Urine Blood >=1.0 NEGATIVE mg/dl Urine pH 6.0 5.0 - 8.0 Urine Protein 30(H) NEGATIVE mg/dL Urine Urobilinogen 2(H) NORMAL mg/dL Urine Nitrite NEGATIVE NEGATIVE Ur Leukocyte Esterase NEGATIVE NEGATIVE Kinsey/ul Ur Microscopic Review Indicated or Ordered Urine RBC 836 0 - 2 /HPF Urine WBC 8 0 - 2 /HPF Urine Mucus RARE /LPF 04/28/2016 8:48 AM CDT 04/28/2016 9:00 AM T Narrative [facility] HISTORICAL RESULTS - 04/28/2016 10:13 AM CDT us Trenton Ventura MD LAB MICROBIOLOGY - GENER AL ORDERABLES Final Result [facility] HISTORICAL RESULTS * CT Abdomen Pelvis WO Contrast (04/28/2016 12:00 AM CDT) Anatomical Region Laterality Modality Body N/A Computed Tomogra phy 04/28/2016 Impressions 04/28/2016 9:41 AM CDT ?? 1. ??Obstructing 2 - 3 mm calculus at the right UVJ or just within the urinary bladder. ??There is mild associated hydronephrosis and hydroureter with minimal peripelvic and periureteral stranding. 2. ??Bilateral nonobstructing renal calculi. 3. ??Appendix normal. Automated exposure control was used as a dose optimization technique for this examination. THIS IS AN ELECTRONICALLY VERIFIED REPORT 04/28/2016 9:37 AM: ??Casi Jerez M.D. ?? Casi Jerez M.D. TB:tb 09:37 AM 09:37 AM [facility] [EOD] Narrative 04/28/2016 9:41 AM CDT EXAMINATION: ??CT abdomen and pelvis without contrast HISTORY: Right flank pain radiating to the right lower quadrant this morning. TECHNIQUE: ??Axial images were obtained through the abdomen and pelvis without contrast administration. ??Sagittal and coronal reconstructions were performed. COMPARISON: ??08/09/2015 FINDINGS: ??There is a 4 mm nodule noted in the periphery of the right lower lobe, not visualized on the prior examination. ??The lung bases are otherwise clear. ??There is no pleural or pericardial effusion. There is a tiny hypodense lesion in the anterior left lobe of liver on image number 31, indeterminate but stable. ??Similar millimetric lesions are noted on axial images 38, 42 and 48, also stable. ??The gallbladder is unremarkable. ?? The biliary tree is nondilated. ??The spleen, pancreas and the adrenal glands are unremarkable. The left kidney is normal in size without focal mass. ??There is a nonobstructing 4 mm lower pole left renal calculus. ??There is no left-sided hydronephrosis. There is mild edema involving the right kidney. ??Punctate 1 mm nonobstructing calculus in the interpolar region of the right kidney. ??There is mild right-sided hydronephrosis and hydroureter. ??Findings are secondary to and a 2 - 3 mm stone either at the right UVJ or just within the urinary bladder. ?? There is mild peripelvic and periureteral stranding. ??The urinary bladder is decompressed, limiting evaluation. Aorta is atherosclerotic without aneurysm. ??There is no bowel obstruction. ??No free intraperitoneal air or free fluid. ??The appendix is normal. ??Prostate gland is borderline enlarged. ??There is mild increased fat in the right inguinal canal. ??No inguinal or pelvic adenopathy. There are degenerative changes within the lumbar spine, stable from prior study Procedure Note Provider, MD Yony - 02/10/2021 EXAMINATION: CT abdomen and pelvis without contrast HISTORY: Right flank pain radiating to the right lower quadrant thismorning. TECHNIQUE: Axial images were obtained through the abdomen and pelviswithout contrast administration. Sagittal and coronal reconstructions wereperformed. COMPARISON: 08/09/2015 FINDINGS: There is a 4 mm nodule noted in the periphery of the rightlower lobe, not visualized on the prior examination. The lung bases areotherwise clear. There is no pleural or pericardial effusion. There is a tiny hypodense lesion in the anterior left lobe of liver onimage number 31, indeterminate but stable. Similar millimetric lesions arenoted on axial images 38, 42 and 48, also stable. The gallbladder is unremarkable. The biliary tree is nondilated. The spleen, pancreas and the adrenalglands are unremarkable. The left kidney is normal in size without focal mass. There is a nonobstructing 4 mm lower pole left renal calculus. There is noleft-sided hydronephrosis. There is mild edema involving the right kidney. Punctate 1 mmnonobstructing calculus in the interpolar region of the right kidney. There is mild right-sided hydronephrosis and hydroureter. Findings are secondary to josé miguel 2 - 3 mm stone either at the right UVJ or just within the urinary bladder. There is mild peripelvic and periureteral stranding. The urinary bladderis decompressed, limiting evaluation. Aorta is atherosclerotic without aneurysm. There is no bowel obstruction.No free intraperitoneal air or free fluid. The appendix is normal. Prostate gland is borderline enlarged. There is mild increased fat in the right inguinal canal. No inguinal or pelvic adenopathy. There are degenerative changes within the lumbar spine, stable from priorstudy IMPRESSION: 1. Obstructing 2 - 3 mm calculus at the right UVJ or just within theurinary bladder. There is mild associated hydronephrosis and hydroureter withminimal peripelvic and periureteral stranding. 2. Bilateral nonobstructing renal calculi. 3. Appendix normal. Automated exposure control was used as a dose optimization technique forthis examination. THIS IS AN ELECTRONICALLY VERIFIED REPORT 04/28/2016 9:37 AM: Casi Jerez M.D. Casi Jerez M.D. TB:tb 09:37 AM 09:37 AM [facility] [EOD] Trenton Ventura MD IMG CT PROCEDURES Final Result documented in this encounter Visit Diagnoses Diagnosis Calculus of kidney with calculus of ureter documented in this encounter"
--- OUTSIDE RECORDS SUMMARY | 2024-09-25 06:41 | XMS_ITS | Encounter Summary ---
Author Organization [facility] Address [address] [place] [address] Care Team Providers Care Sports Medicine Physician Name Role Phone Elton De La Fuente MD Primary Care Provider [phone] Encounter Details Date Type Department Care Team (Late st Contact Info) Description 10/24/2019 Documentation [facility] Orthopedics and Sports Medicine [address] [place] [phone] Jena Loredo MA Social History Tobacco Use Types Packs/Day Years Used Date Smoking Tobacco: Every Day Cigarettes 0.1 20 Alcohol Use Standard Drinks/Week Comments Not Currently 0 (1 standard drink = 0.6 oz pur e alcohol) Recovering alcoholic-whiskey Sex and Gender Information Value Date Recorded Sex Assigned at Not on file Legal Sex Male 6:34 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 Gender Identity Not on file Sexual Orientation Not on file 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
--- OUTSIDE RECORDS SUMMARY | 2024-09-25 06:41 | XMS_ITS | Encounter Summary ---
Author Organization [facility] Care Team Providers Care Salesperson [employer] Name Role Phone Elton De La Fuente MD Primary Care Provider [phone] Encounter Details Date Type Department Care Team (Latest Contact Info) Description 10/11/2019 Travel Social History Tobacco Use Types Packs/Day Years Used Date Smoking Tobacco: Every Day Cigarettes 0.1 20 Alcohol Use Standard Drinks/Week Comments Not Currently 0 (1 standard drink = 0.6 oz pur e alcohol) Recovering alcoholic-whiskey Sex and Gender Information Value Date Recorded Sex Assigned at Not on file 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
--- OUTSIDE RECORDS SUMMARY | 2024-09-25 06:41 | XMS_ITS | Encounter Summary ---
Author Organization [facility] Healthcare Address [address] [place] [address] Care Team Providers Care Shuttle Driver Name Role Phone Elton De La Fuente MD Primary Care Provider [phone] Encounter Details Date Type Department Care Team (Late st Contact Info) Description 10/11/2019 8:04 AM AUTOMOTIVE SERVICE TECHNICIAN Hospital Encounter [facility] INTERIM Kely Tijerina, PRODUCT MANAGEMENT CONSULTANT [address] [facility] [address] [address] Social History Tobacco Use Types Packs/Day Years Used Date Smoking Tobacco: Every Day Cigarettes 0.1 20 Alcohol Use Standard Drinks/Week Comments Not Currently 0 (1 standard drink = 0.6 oz pur e alcohol) Recovering alcoholic-whiskey Sex and Gender Information Value Date Recorded Sex Assigned at Not on file Legal Sex Male 6:34 PM AUTOMOTIVE SERVICE TECHNICIAN Gender Identity Not on file Sexual Orientation Not on file 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
--- OUTSIDE RECORDS SUMMARY | 2024-09-25 06:41 | XMS_ITS | Encounter Summary ---
Author Organization [facility] Healthcare Address [address] [place] [address] Care Team Providers Care Senior Clinical Data Coordinator Name Role Phone Elton De La Fuente MD Primary Care Provider [phone] Reason for Visit * Reason Comments Hip Pain Encounter Details Date Type Department Care Team (Late st Contact Info) Description 06/28/2021 11:21 AM CDT - 06/28/2021 5:13 PM CDT [facility] Emergency Department [address] [place] [address] Stuart Pro MD [address] [facility] [address] [place] [address] Right sided sciatica (Primary Dx) Discharge Disposition: Discharge to home or self [...] on file 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 Gender Identity Not on file Sexual Orientation Not on file 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 file Not on file Not on file documented as of this encounter Last Filed Vital Signs Vital Sign Reading Time Taken Comments Blood Pressure 132/80 06/28/2021 11:18 AM CDT Pulse 82 06/28/2021 1:00 PM CDT Temperature 36.7 ??C (98.1 ??F) 06/28/2021 11:18 AM C DT Respiratory Rate 16 06/28/2021 11:18 AM CDT Oxygen Saturation 99% 06/28/2021 1:00 PM CDT Inhaled Oxygen Concentration - - Weight 80.3 kg (177 lb) 06/28/2021 11:18 AM CDT Height 182.9 cm (6') 06/28/2021 11:18 AM CDT Body Mass Index 24.01 06/28/2021 11:18 AM CDT documented in this encounter Discharge Instructions * Discharge Instructions* Stuart Pro MD - 06/28/2021 4:53 PM CDT Please follow-up with your spine surgeon, Dr. Brody, in 3-5 days for re- evaluation. Please call soon as possible to schedule your outpatient follow-up appointment. Please start Medrol Dosepak as prescribed. Use Robaxin, muscle relaxer, 500 mg twice daily as needed for muscle spasms. Continue ibuprofen 600 mg every 8 hours or Tylenol 650 mg every 6 hours as needed for pain. Use hydrocodone sparingly for breakthrough pain. Return to the emergency room were seek emergent medical care if you have worsening pain, difficultywalking, bladder or bowel incontinence, numbness of your groin, or any other concerning symptoms you feel need to be emergently evaluated. * Attachments The following attachments cannot be sent through Care Everywhere. * Sciatica (Discharge Care) (Angolan) documented in this encounter Medications at Time of Discharge lidocaine (LIDODERM) 5 % Apply 1 patch topically daily Remove after 12 hours (need 12 hour patch free period). 10 patch 06/28/2021 1 methylPREDNISolo ne (MEDROL DOSEPACK) 4 mg Dosepack Take as directed on package 1 packet 06/28/2021 1 cetirizine (ZyrTEC) 10 mg tablet Take 10 mg by mouth daily [address] (VOLTAREN) 75 mg EC tablet Take 75 mg by mouth 2 (two) times a day 05/21/2021 4 HYDROcodone-acet aminophen (NORCO) 5-325 mg per tabletIndication s:Pain Take 1-2 tablets by mouth every 6 (six) hours as needed for pain (1 tablet for mild to moderate pain or 2 tablets for severe pain) 20 tablet 06/28/2021 2 methocarbamoL (ROBAXIN) 500 mg tablet Take 1 tablet (500 mg total) by mouth 2 (two) times a day 20 tablet 06/28/2021 4 documented as of this encounter Ordered Prescriptions Prescription Sig Dispense Quantity Refills Last Filled Start Date End Date lidocaine (LIDODERM) 5 % Apply 1 patch topically daily Remove after 12 hours (need 12 hour patch free period). 10 patch 06/28/2021 1 methylPREDNISolone (MEDROL DOSEPACK) 4 mg Dosepack Take as directed on package 1 packet 06/28/2021 1 methocarbamoL (ROBAXIN) 500 mg tablet Take 1 tablet (500 mg total) by mouth 2 (two) times a day 20 tablet 06/28/2021 4 HYDROcodone-acetam inophen (NORCO) 5-325 mg per tabletIndications: Pain Take 1-2 tablets by mouth every 6 (six) hours as needed for pain (1 tablet for mild to moderate pain or 2 tablets for severe pain) 20 tablet 06/28/2021 2 documented in this encounter Discharge Disposition Disposition Code Departure Means Destination Discharge to home or self care documented in this encounter ED Notes * Stuart Pro MD - 06/28/2021 1:01 PM CDT HPI Chief Complaint Patient presents with ??? Hip Pain 50-year-old male past medical history of micro diskectomy of L4-5 on 06/11/2021 is presenting for acute on chronic right-sided back pain. Patient states that his back pain is been ongoing since surgery, worsening over the last week. Patient states his pain is right sided, superior buttock area withradiation down to his right calf. Patient endorses increased urinary frequency, has had a few episodes of urinary incontinence, denies any bowel incontinence. Patient continues to remain ambulatory, however is having pain. Patient was seen in emergency room and anjel on 06/23/2021, prescribed hydrocodone. Patient called his spine surgeon who referred him to the emergency room today for further dakotah luation. Patient denies any fevers, chills, nausea, vomiting, blood in his urine, patient has baseline erectile dysfunction. Patient History: There are no problems to display for this patient. Past Medical History: Diagnosis Date ??? Cervical spondylosis ??? Degenerative disc disease, lumbar ??? Hypertension ??? Kidney stone ??? Lumbar spondylosis Past Surgical History: Procedure Laterality Date ??? EYE SURGERY Bilateral as young child Family History Problem Relation Age of Onset ??? Arthritis Mother ??? Hypertension Mother ??? Diabetes Father ??? Lung disease Father ??? Cancer Father ??? Hypertension Father ??? Hyperlipidemia Father Social History Tobacco Use ??? Smoking status: Current Every Day Smoker Packs/day: 1.00 Years: 20.00 Pack years: 20.00 Types: Cigarettes ??? Smokeless tobacco: Never Used Substance Use Topics ??? Alcohol use: Not Currently Comment: Recovering alcoholic-whiskey ??? Drug use: Yes Types: Cocaine, Marijuana Comment: marijuana occassionally, no longer does cocaine Social History Social History Narrative ??? Not on file Review of Systems Review of Systems Constitutional: Negative for fatigue and fever. Gastrointestinal: Negative for nausea and vomiting. Genitourinary: Positive for frequency. Musculoskeletal: Positive for back pain and gait problem. All other systems reviewed and are negative. Physical Exam ED Triage Vitals [06/28/21 1118] Temp Pulse Resp BP SpO2 36.7 ??C (98.1 ??F) 87 16 132/80 97 % Temp src Heart Rate Source Patient Position BP Location FiO2 (%) Oral -- -- -- -- Physical Exam Vitals and nursing note reviewed. Constitutional: General: He is in acute distress. Appearance: Normal appearance. He is well-developed. Comments: Appears in mild distress from pain especially with ambulation HENT: Head: Normocephalic and atraumatic. Eyes: Extraocular Movements: Extraocular movements intact. Conjunctiva/sclera: Conjunctivae normal. Cardiovascular: Rate and Rhythm: Normal rate and regular rhythm. Heart sounds: Normal heart sounds. No murmur heard. Pulmonary: Effort: Pulmonary effort is normal. No respiratory distress. Breath sounds: Normal breath sounds. Abdominal: Palpations: Abdomen is soft. Tenderness: There is no abdominal tenderness. Genitourinary: Rectum: Normal. Musculoskeletal: Cervical back: Neck supple. Comments: Lower lumbar incision appears healing, no dehiscence or drainage, minimally tender to palpation Right SI tenderness to palpation with radiation down the buttock and right leg Plus two patellar reflexes bilaterally, +2 beats of ankle clonus bilaterally, sensation grossly intact in lower extremities, able to stand, abnormal gait favoring the right side Rectal tone intact, no saddle anesthesia Skin: General: Skin is warm and dry. Capillary Refill: Capillary refill takes less than 2 seconds. Neurological: General: No focal deficit present. Mental Status: He is alert and oriented to person, place, and time. Cranial Nerves: No cranial nerve deficit. Sensory: No sensory deficit. Deep Tendon Reflexes: Reflexes normal. Psychiatric: Mood and Affect: Mood normal. MDM MDM Who sided back my diskectomy of L4-L5, wound appears intact without dehiscence. Patient is ambulatory, I personally observed him walking into the emergency room for evaluation today. Patient does not have any saddle anesthesia, grossly normal rectal tone, has increased urinary frequency with a few episodes of urinary incontinence especially at night. No bowel incontinence. Patient has intact reflexes in lower extremities bilaterally. Will plan for point of care glucose to rule out diabetes as a source of increased urinary frequency, will plan for bladder scan for any postvoid residual, patient's symptoms are most consistent with right-sided sciatic nerve pain as he does not have any obvious evidence of cauda equina or cord compr ession symptoms. Will discuss the case with the primary spine surgeon who referred to the emergency room for furtherevaluation to determine if advanced imaging is necessary. ED Course as of Jun 28 2016 Time: 06/28 1324 Comment: Dr. Brody recommends MRI lumbar w/wo By: Stuart Pro MD Time: 06/28 1328 Comment: Postvoid residual 0. Blood glucose normal. Will send urinalysis to rule out infection. MRIof lumbar spine with and without per specialty consultation recommendation. By: Stuart Pro MD Time: 06/28 1356 Comment: Patient initially refusing MRI, however further discussion, patient is amenable to MRI with oral diazepam. By: Stuart Pro MD Time: 06/28 1647 Comment: MRI time now 6:30 p.m., patient does not wish to stay for MRI. Dr. Brody aware, recommends Medrol Dosepak, pain control, will follow up as outpatient. Patient and/or advocate if present were given additional return precautions for which the patient or advocate expressed understanding. The patient and advocate, if present, had the opportunity to askall questions. All questions were answered to the satisfaction of the patient and/or advocate. The patient and advocate, if present, were comfortable with the discharge plan and are in agreement. Any laboratory, imaging, and EKGs, if obtained, were personally reviewed prior to the patient's final disposition. Parts of the patient's medical record may contain some grammatical or inappropriate worderrors secondary to use of dictation software. By: Stuart Pro MD Final diagnoses: Right sided sciatica Stuart Pro MD 06/28/212015 * Rosario Nair RN - 06/28/2021 11:17 AM CDT Pt had back surgery 2 weeks ago, now c/o right hip pain. documented in this encounter Plan of Treatment Not on file documented as of this encounter Procedures Procedure Name Priority Date/Time Associated Diagnosis Comments URINALYSIS AND REFLEX TO MICROSCOPIC AND CULTURE STAT 06/28/2021 1:15 PM CDT POCT GLUCOSE DEVICE Routine 06/28/2021 1 :13 PM CDT documented in this encounter Results * Urinalysis reflex to microscopic and culture Urine (06/28/2021 1:15 PM CDT) Color, ur Yellow Yellow [facility] Clarity, ur Clear Clear [facility] Specific gravity, ur 1.010 1.003 - 1.030 [facility] pH, urine 6.5 [facility] Protein, ur ql Negative Negative [facility] Glucose, ur ql Negative Negative [facility] Ketones, ur Negative Negative [facility] Bilirubin, ur Negative Negative [facility] Blood, ur Negative Negative [facility] Urobilinogen, ur <2.0 <2.0 mg/dL [facility] Nitrite, ur Negative Negative [facility] Leukocyte esterase, ur Negative Negative [facility] UA reflex comment Reflex conditions for microscopic UA and culture not met. [facility] Urine 06/28/2021 1:15 PM CDT 06/28/2021 1:28 PM CDT Narrative [facility] - 06/28/2021 1:52 PM CDT ?? Urine pH is affected by diet, medications, systemic acid-base disturbances, and renal tubular function. ??pH may affect urinary stone formation. ??For example, urine pH below 6.0 may help reduce the tendency for calcium phosphate stones and pH greater than 6.0 may reduce the tendency for uric acid stone formation. Source: [employer]. Last revised 10-05-2017 Stuart Pro MD LAB MICROBIOLOGY - GENERAL O RDERABLES Final Result Performing Organization Address [facility]/ZIP Co de Phone Number [facility] [address] [place] [address] * POCT glucose (06/28/2021 1:13 PM CDT) Glucose, POC 88 70 - 140 mg/dL [facility] Comment: For Glucose values <35 mg/dl when Hematocrit is >60 mg/dl,the test may not accurately detect significant hypoglycemia,and testing in the Laboratory should be considered if clinically indicated. Blood 06/28/2021 1:13 PM CDT 06/28/2021 1:13 PM CDT us Stuart Pro MD LAB POCT ORDERABLES - DEVICE Final Result Performing Organization Address [facility] Co de Phone Number [facility] [address] [place] [address] documented in this encounter Visit Diagnoses Diagnosis Right sided sciatica- Primary Sciatica documented in this encounter Administered Medications Inactive Administered Medications - up to 3 most recent administrations Medication Order MAR Action Action Date Dose Rate Site HYDROcodone-acetami nophen (NORCO) 5-325 mg per tablet 1 tablet 1 tablet, oral, Once, On Mon06/28/21 at 1259, For 1 dose, Indications: PainIndications:Tyron n Given 06/28/2021 1:17 PM CDT 1 tablet ketorolac (TORADOL) injection 30 mg 30 mg, intramuscular, Once, On Mon06/28/21 at 1259, For 1 dose, Indications: PainIndications:Tyron n Given 06/28/2021 1:16 PM CDT 30 mg Left Ventrogluteal lidocaine (LIDODERM) 5 % patch 1 patch 1 patch, transdermal, Administer over 12 Hours, Once, On Mon06/28/21 at 1259, For 1 dose, Right hip Do not cover the holes on the top side of the patch., Apply to affected area: back Medication Applied 06/28/2021 1:17 PM CDT 1 patch Other (Comment) documented in this encounter Discontinued Medications Medication Sig Discontinue Reason Start Date End Da te HYDROcodone-acetaminophe n (NORCO) 7.5-325 mg per tablet TAKE 1 TABLET BY MOUTH THREE TIMES DAILY NEEDED FOR PAIN 05/24/2021 06/28/2021 documented as of this encounter Active and Recently Administered Medications Times are shown in CDT. Scheduled Medication Order 06/26/2021 06/27/2021 06/28/2021 HYDROcodone-acetaminophen (NORCO) 5-325 mg per tablet 1 tablet (COMPLETED) 1 tablet, oral, Once, On Mon06/28/21 at 1259, For 1 dose, Indications: Pain 1317 (Given - Provid er: Hayley Colmenares RN) ketorolac (TORADOL) injection 30 mg (COMPLETED) 30 mg, intramuscular, Once, On Mon06/28/21 at 1259, For 1 dose, Indications: Pain 1316 (Given - Provid er: Hayley Colmenares RN) lidocaine (LIDODERM) 5 % patch 1 patch 1 patch, transdermal, Administer over 12 Hours, Once, On Mon06/28/21 at 1259, For 1 dose, Right hip Do not cover the holes on the top side of the patch., Apply to affected area: back 1317 (Medication Maryuri lied - Provider: Hayley Colmenares RN - Comment: Right hip)1713 (Due: Medication Removed - Provider: Automatic Discharge Provider - Comment: Time automatically adjusted from order being discontinued) documented in this encounter Orders Medications Ordered That Jose Antonio ht Not Have Been Administered Count Last Ordered Date First Ordered Date diazePAM (VALIUM) tablet 5 mg 1 06/28/2021 Lab Orders Without Results Count Last Ordered D ate First Ordered Date POCT GLUCOSE DEVICE 1 06/28/2021 Nursing Count Last Ordered Date First Orde red Date BLADDER SCAN 1 06/28/2021 IV Count Last Ordered Date First Orde red Date SALINE LOCK IV 1 06/28/2021 documented in this encounter Care Teams Senior Clinical Data Coordinator Relationship Specialty Start Date End Date Elton De La Fuente MD PCP - General Family Medicine 06/02/21 documented as of this encounter
--- OUTSIDE RECORDS SUMMARY | 2024-09-25 06:41 | XMS_ITS | Encounter Summary ---
Author Organization [facility] Address [address] [place] [address] Care Team Providers Care Attendant Child Activity Name Role Phone Elton De La Fuente MD Primary Care Provider Reason for Visit * Reason Comments Follow-up After PFT Encounter Details Date Type Department Care Team (Late st Contact Info) Description 04/21/2022 9:00 AM CDT Office Visit [facility] Cardiology [address] [facility] [address] [place] [address] Brittany Payne NP [address] [facility] [address] [place] [address] COPD, mild (CMS/HCC) (HCC) (Primary Dx); Tobacco abuse Social History Tobacco Use Types Packs/Day Years Used Date Smoking Tobacco: Every Day Cigarettes 1 20 Smokeless Tobacco: Never Alcohol Use Standard Drinks/Week Comments Not Currently 0 (1 standard drink = 0.6 oz pur e alcohol) Recovering alcoholic-whiskey Sex and Gender Information Value Date Recorded Sex Assigned at Not on file 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 Gender Identity Not on file Sexual Orientation Not on file 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 [facility] Cardiology [address] [place] [address] Date of Visit: 04/21/2022 Patient ID: Tramaine Marin Jr. 1970 Chief Complaint Patient presents with ??? Follow-up After PFT Tramaine Marin Jr. is a 51 y.o. male who was evaluated by Dr. Smith last year for preoperative assessment and returns to the office for follow-up regarding PFT's. History of Present Illness: Tramaine Marin Jr. is a 51 y.o. male with DJD, emphysema (based on patient's heavy smoking status and chest x-ray findings), tobacco abuse, history of cocaine abuse. 06/02/2021 initial evaluation-patient has been referred for preoperative cardiovascular evaluation.He denies any prior cardiovascular history including clinical AK, angina, heart failure or any arrhythmias. Patient [...] illicit drug use 03/18/2022 office visit with BLADDER TRIMMER: He underwent microdiskectomy last year but reports [...] functional alcoholic?? and has now quit drinking. 04/21/2022 office visit with BLADDER TRIMMER: I sent him for PFTs at the last visit and he is here to follow-up on the results. He reports he has been dealing with some other health problems over the last month that his PCP is evaluating and he is going for lab work today. Records that I personally reviewed on the day of this visit include: (the interpretation is outlined in the HPI above) 06/02/[address] Smith, 03/18/2022 office note from myself I have also reviewed: allergies, current medications, [...] Father Review of Systems Constitutional: Positive for malaise/fatigue. Negative for diaphoresis, fever, weight gain and weight loss. HENT: Negative for hearing loss. Eyes: Negative for visual disturbance. Cardiovascular: Negative for chest pain, claudication, dyspnea on exertion, leg swelling, orthopnea, palpitations, paroxysmal nocturnal dyspnea and syncope. Respiratory: Negative for cough, hemoptysis, shortness of breath, snoring and wheezing. Hematologic/Lymphatic: Does not bruise/bleed easily. Skin: Negative for poor wound healing and rash. Musculoskeletal: Positive for joint pain and myalgias. Gastrointestinal: Positive for nausea. Negative for heartburn and vomiting. Genitourinary: Negative for hematuria. Neurological: Negative for dizziness, headaches and light-headedness. Psychiatric/Behavioral: Negative for depression. The patient is not nervous/anxious. Vital Signs: BP 118/68 (BP Location: Left arm, Patient Position: Sitting) Pulse 84 Ht 182.9 cm (6') Wt 79.4 kg (175 lb) SpO2 97% BMI 23.73 kg/m?? Physical Exam Constitutional: General: He is [...] mg by mouth daily (Patient not taking: No sig reported), Disp: , Rfl: ??? diclofenac DR (VOLTAREN) 75 mg EC tablet, Take 75 mg by mouth 2 (two) times a day (Patient not taking: No sig reported), Disp: , Rfl: ??? methocarbamoL (ROBAXIN) 500 mg tablet, Take 1 tablet (500 mg total) by mouth 2 (two) times a day (Patient not taking: No sig reported), Disp: 20 tablet, Rfl: 0 Lab Results Component Value Date POTASSIUM 5.3 (H) 03/30/2020 CREATININE 1.0 03/30/2020 CHOL 203 (H) 03/30/2020 TRIG 151 (H) 03/30/2020 LDLCALC 127 03/30/2020 HDL 46 03/30/2020 Lab Results Component Value Date WBC 12.1 (H) 03/30/2020 HGB 17.6 (H) 03/30/2020 HCT 51.9 (H) 03/30/2020 MCV 88.0 03/30/2020 Assessment: Diagnoses and all orders for this visit: COPD, mild (CMS/HCC) (HCC) (Primary) Tobacco abuse Plan/Recommendations: When Dr. Smith did his preoperative assessment last year he recommended follow-up later on regardingthe abnormal chest x-ray that indicated emphysema. I sent him for PFTs to better determine the diagnosis of COPD and the severity. The PFTs indicate mild COPD. I will send a copy to his PCP. He may benefit from having an albuterol inhaler p.r.n. due to his age, smoking history and unexplained weight loss, I would recommend a CT scan to screen for lung cancer. I explained this to the patient and advised him to ask PCP to order this. He verbalized understanding and agreed. No further cardiac testing or office follow-up is indicated at this time. However if concerns arisein the future I told him that either myself for Dr. Smith would be happy to re-evaluate him if indicated. He verbalized understanding. 04/21/2022 MICKEY Menendez- Nurse Practitioner with [facility] This note is dictated and transcribed using [employer] Software. Viscosity Tester variancesmay occur. Despite proofreading, typographical errors may occur. documented in this encounter Plan of Treatment Not on file documented as of this encounter Visit Diagnoses Diagnosis COPD, mild (HCC)- Primary Tobacco abuse Tobacco use disorder documented in this encounter Care Teams Attendant Child Activity Relationship Specialty Start Date End Date Elton De La Fuente MD PCP - General Family Medicine 06/02/21 documented as of this encounter
--- OUTSIDE RECORDS SUMMARY | 2024-09-25 06:41 | XMS_ITS | Encounter Summary ---
Author Organization [facility] Healthcare Address [address] [place] [address] Care Team Providers Care Auto Tune Up Mechanic Name Role Phone Unavailable Primary Care Provider Unavailabl e Encounter Details Date Type Department Care Team (Latest Contact Info) Description 08/09/2015 8:29 AM CLIENT SERVICE PROFESSIONAL - 08/09/2015 1:00 PM CLIENT SERVICE PROFESSIONAL Hospital Encounter [facility] Trenton Grimm, DO [address] [facility] [address] Hydronephrosis with renal and ureteral calculus obstruction Social History Tobacco Use Types Packs/Day Years Used Date Smoking Tobacco: Never Assessed Sex and Gender Information Value Date Recorded Sex Assigned at Not on file Legal Sex Male 6:34 PM CLIENT SERVICE PROFESSIONAL Gender Identity Not on file Sexual Orientation Not on file documented as of this encounter Last Filed Vital Signs Vital Sign Reading Time Taken Comments Blood Pressure 136/96 08/09/2015 8:30 AM CLIENT SERVICE PROFESSIONAL Pulse 74 08/09/2015 8:30 AM CLIENT SERVICE PROFESSIONAL Temperature 36.5 ??C (97.7 ??F) 08/09/2015 8:30 AM CS T Respiratory Rate - - Oxygen Saturation 96% 08/09/2015 8:30 AM CLIENT SERVICE PROFESSIONAL Inhaled Oxygen Concentration - - Weight 90.7 kg (200 lb) 08/09/2015 8:30 AM CLIENT SERVICE PROFESSIONAL Height 182.9 cm (6') 08/09/2015 8:30 AM CLIENT SERVICE PROFESSIONAL Body Mass Index 27.12 08/09/2015 8:30 AM CLIENT SERVICE PROFESSIONAL documented in this encounter Plan of Treatment Not on file documented as of this encounter Procedures Procedure Name Priority Date/Time Associated Diagnosis Comments CBC WITH AUTO DIFFERENTIAL Routine 08/09/2015 10:56 AM CLIENT SERVICE PROFESSIONAL COMPREHENSIVE METABOLIC PANEL Routine 08/09/2015 10:56 AM CLIENT SERVICE PROFESSIONAL URINALYSIS AND REFLEX TO MICROSCOPIC AND CULTURE Routine 08/09/2015 10:15 AM CLIENT SERVICE PROFESSIONAL CT ABDOMEN PELVIS WO CONTRAST Routine 08/09/2015 12:00 AM CLIENT SERVICE PROFESSIONAL documented in this encounter Results * Comprehensive metabolic panel (08/09/2015 10:56 AM CLIENT SERVICE PROFESSIONAL) Sodium 141 135 - 145 mmol/L 08/09/2015 11:27 AM [employer] HISTORICAL RESULTS Potassium 4.0 3.3 - 5.1 mmol/L 08/09/2015 11:27 AM [employer] HISTORICAL RESULTS Chloride 101 96 - 108 mmol/L 08/09/2015 11:27 AM [employer] HISTORICAL RESULTS Carbon Dioxide 27 22 - 32 mmol/L 08/09/2015 11:27 AM [facility] HISTORICAL RESULTS Anion Gap 13 7 - 16 08/09/2015 11:27 AM [employer] HISTORICAL RESULTS Glucose 97 70 - 100 mg/dL 08/09/2015 11:27 AM [facility] HISTORICAL RESULTS BUN 10 6 - 20 mg/dL 08/09/2015 11:27 AM [facility] HISTORICAL RESULTS Creatinine 1.0 0.5 - 1.3 mg/dL 08/09/2015 11:27 AM [facility] HISTORICAL RESULTS Kidney Disease Stage 86 mL/MIN 08/09/2015 11:27 AM [facility] HISTORICAL RESULTS Comment: NOTE; ??The GFR is [...] ? Kidney failure or on dialysis @ Calcium 9.5 8.6 - 10.0 mg/dL 08/09/2015 11:27 AM CLIENT SERVICE PROFESSIONAL [employer] HISTORICAL RESULTS Total Protein 7.4 6.4 - 8.3 g/dL 08/09/2015 11:27 AM CLIENT SERVICE PROFESSIONAL [employer] HISTORICAL RESULTS Albumin 4.8 3.5 - 5.2 g/dL 08/09/2015 11:27 AM [facility] [employer] HISTORICAL RESULTS Globulin 2.6 2.3 - 3.5 gm/dL 08/09/2015 11:27 AM CLIENT SERVICE PROFESSIONAL [facility] [employer] HISTORICAL RESULTS Albumin/Globulin Ratio 1.8 1.1 - 1.8 08/09/2015 11:27 AM CLIENT SERVICE PROFESSIONAL [facility] [employer] HISTORICAL RESULTS Total Bilirubin 0.7 0.0 - 1.2 mg/dL 08/09/2015 11:27 AM CLIENT SERVICE PROFESSIONAL [employer] HISTORICAL RESULTS AST 27 0 - 40 U/L 08/09/2015 11:27 AM CLIENT SERVICE PROFESSIONAL [employer] HISTORICAL RESULTS ALT 26 0 - 41 U/L 08/09/2015 11:27 AM [facility] [employer] HISTORICAL RESULTS Alkaline Phosphatase 84 40 - 129 U/L 08/09/2015 11:27 AM [facility] [employer] HISTORICAL RESULTS 08/09/2015 10:5 6 AM CLIENT SERVICE PROFESSIONAL 08/09/2015 11:00 AM CLIENT SERVICE PROFESSIONAL us Trenton Alexander DO LAB BLOOD ORDERABLES Final Result [facility] HISTORICAL RESULTS * (ABNORMAL) CBC with auto differential (08/09/2015 10:56 AM CLIENT SERVICE PROFESSIONAL) WBC 13.4(H) 4.6 - 10.2 x10 3/ul 08/09/2015 11:04 AM [employer] [facility] HISTORICAL RESULTS RBC 5.97(H) 4.11 - 5.71 x10 6/ul 08/09/2015 11:04 AM CLIENT SERVICE PROFESSIONAL [facility] [employer] HISTORICAL RESULTS Hemoglobin 18.4(H) 13.0 - 17.0 g/dl 08/09/2015 11:04 AM CLIENT SERVICE PROFESSIONAL [facility] [employer] HISTORICAL RESULTS Hct 52.7(H) 38.2 - 48.5 % 08/09/2015 11:04 AM CLIENT SERVICE PROFESSIONAL [facility] [employer] HISTORICAL RESULTS MCV 88.3 80.0 - 97.0 fl 08/09/2015 11:04 AM CLIENT SERVICE PROFESSIONAL [facility] [employer] [facility] HISTORICAL RESULTS MCH 30.8 27.0 - 31.2 pg 08/09/2015 11:04 AM [employer] [facility] [employer] [facility] HISTORICAL RESULTS MCHC 34.9 31.8 - 35.4 g/dl 08/09/2015 11:04 AM [employer] [facility] [employer] HISTORICAL RESULTS RDW 13.0 11.6 - 14.8 % 08/09/2015 11:04 AM [employer] [facility] [employer] HISTORICAL RESULTS Plt Count 146 124 - 400 x10 3/ul 08/09/2015 11:04 AM [employer] [facility] [employer] HISTORICAL RESULTS MPV 11.4(H) 7.4 - 10.4 fl 08/09/2015 11:04 AM [employer] [facility] [employer] [facility] HISTORICAL RESULTS Differential Method AUTOMATED DIFF --------- -- 08/09/2015 11:04 AM [employer] [facility] [employer] HISTORICAL RESULTS Neut % 77.0 37.0 - 85.0 % 08/09/2015 11:04 AM [employer] [facility] [employer] HISTORICAL RESULTS Immature Gran % 0.4 0.0 - 3.0 % 08/09/2015 11:04 AM [employer] [facility] [employer] HISTORICAL RESULTS Lymph % 12.4 5.0 - 45.0 % 08/09/2015 11:04 AM [employer] [facility] [employer] HISTORICAL RESULTS Pope % 9.2 3.0 - 15.0 % 08/09/2015 11:04 AM [employer] [facility] [employer] HISTORICAL RESULTS Eos % 0.7 0.0 - 7.0 % 08/09/2015 11:04 AM [employer] [facility] [employer] HISTORICAL RESULTS Baso % 0.3 0.0 - 2.0 % 08/09/2015 11:04 AM [employer] [facility] [employer] HISTORICAL RESULTS ABSOLUTE COUNTS ABSOLUTE COUNTS --------- -- Absolute Neuts (auto) 10.4(H) 1.7 - 8.7 x10 3/ul Immature Gran # 0.1 0.0 - 0.3 x10 3/ul Absolute Lymphs (auto) 1.7 0.2 - 4.6 x10 3/ul 08/09/2015 11:04 AM CLIENT SERVICE PROFESSIONAL [facility] HISTORICAL RESULTS Absolute Monos (auto) 1.2 0.1 - 1.5 x10 3/ul Absolute Eos (auto) 0.1 0.0 - 0.7 x10 3/ul Absolute Basos (auto) 0.0 0.0 - 0.2 x10 3/ul 08/09/2015 10:5 6 AM CLIENT SERVICE PROFESSIONAL 08/09/2015 11:00 AM [facility] Trenton Alexander DO LAB BLOOD ORDERABLES Final Result [facility] HISTORICAL RESULTS * (ABNORMAL) Urinalysis reflex to microscopic and culture (08/09/2015 10:15 AM CLIENT SERVICE PROFESSIONAL) Ur Collection Type CLEAN CATCH Ur Culture Indicated? C&S NOT INDICATED Urine Color YELLOW YELLOW Urine Clarity CLEAR CLEAR Urine Glucose (UA) NORMAL NORMAL mg/dL Urine Bilirubin NEGATIVE NEGATIVE mg/dl Urine Ketones NEGATIVE NEGATIVE mg/dL Ur Specific [place] 1.014 1.005 - 1.025 Urine Blood 1.0(H) NEGATIVE mg/dl Urine pH 7.5 5.0 - 8.0 Urine Protein 30(H) NEGATIVE mg/dL Urine Urobilinogen NORMAL NORMAL mg/dL Urine Nitrite NEGATIVE NEGATIVE Ur Leukocyte Esterase NEGATIVE NEGATIVE Kinsey/ul Ur Microscopic Review Indicated or Ordered Urine RBC 709 0 - 2 /HPF Urine WBC 1 0 - 2 /HPF Urine Mucus Rare /LPF 08/09/2015 10:1 5 AM CLIENT SERVICE PROFESSIONAL 08/09/2015 10:27 AM CLIENT SERVICE PROFESSIONAL Narrative [facility] HISTORICAL RESULTS - 08/09/2015 10:41 AM CLIENT SERVICE PROFESSIONAL Trenton Alexander DO LAB MICROBIOLOGY - GENERAL ORDERABLES Final Result [facility] HISTORICAL RESULTS * CT Abdomen Pelvis WO Contrast (08/09/2015 12:00 AM CLIENT SERVICE PROFESSIONAL) Anatomical Region Laterality Modality Body N/A Computed Tomogra phy 08/09/2015 Impressions 08/09/2015 11:27 AM CLIENT SERVICE PROFESSIONAL ??4 mm stone at the left uterovesical junction resulting mild left hydronephrosis. Bilateral non-obstructing nephrolithiasis. Normal appendix. THIS IS AN ELECTRONICALLY VERIFIED REPORT 08/09/2015 11:23 AM: ??Sebas Murray M.D. Sebas Murray M.D. NC:hi 11:23 AM 11:23 AM [facility] [EOD] Narrative 08/09/2015 11:27 AM CLIENT SERVICE PROFESSIONAL EXAMINATION: ??CT ABDOMEN and PELVIS without IV contrast HISTORY: ??Left flank pain for 2 weeks. TECHNIQUE: ??The examination is performed without oral and without IV contrast. ABDOMEN: ??The lung bases are clear. ??There are no nodules or masses. ??Liver demonstrates no masses within the limits of a noncontrast exam. The spleen is normal. ??The adrenal glands are normal. ??Bilateral nephrolithiasis. ??There is a 3 mm stone in the inferior pole of the left kidney and 82 mm stone in the inferior pole of the right kidney. There is mild left hydronephrosis secondary to a 4 mm stone at the left uterovesical junction. The appendix is normal. Procedure Note Provider, MD Yony - 02/10/2021 EXAMINATION: CT ABDOMEN and PELVIS without IV contrast HISTORY: Left flank pain for 2 weeks. TECHNIQUE: The examination is performed without oral and without IVcontrast. ABDOMEN: The lung bases are clear. There are no nodules or masses.Liver demonstrates no masses within the limits of a noncontrast exam. The spleenis normal. The adrenal glands are normal. Bilateral nephrolithiasis. Thereis a 3 mm stone in the inferior pole of the left kidney and 82 mm stone inthe inferior pole of the right kidney. There is mild left hydronephrosis secondary to a 4 mm stone at the left uterovesical junction. The appendix is normal.IMPRESSION: 4 mm stone at the left uterovesical junction resulting mild left hydronephrosis. Bilateral non-obstructing nephrolithiasis. Normal appendix. THIS IS AN ELECTRONICALLY VERIFIED REPORT 08/09/2015 11:23 AM: Sebas Murray M.D. Sebas Murray M.D. NC:nc 11:23 AM 11:23 AM [facility] [EOD] us Trenton Alexander DO IMG CT PROCEDURES Final Res ult documented in this encounter Visit Diagnoses Diagnosis Hydronephrosis with renal and ureteral calculus obstruction documented in this encounter
--- OUTSIDE RECORDS SUMMARY | 2024-09-25 06:41 | XMS_ITS | Encounter Summary ---
Author Organization [facility] Address [address] [place] [address] Care Team Providers Care Mechanical Meter Tester Name Role Phone Elton De La Fuente MD Primary Care Provider Encounter Details Date Type Department Care Team (Late st Contact Info) Description 03/31/2022 Telephone [facility] Cardiology [address] [place] [address] Brittany Payne NP [address] [place] [address] Social History Tobacco Use Types Packs/Day Years Used Date Smoking Tobacco: Every Day Cigarettes 1 20 Smokeless Tobacco: Never Alcohol Use Standard Drinks/Week Comments Not Currently 0 (1 standard drink = 0.6 oz pur e alcohol) Recovering alcoholic-whiskey Sex and Gender Information Value Date Recorded Sex Assigned at Not on file Legal Sex Male 6:34 PM DEMURRAGE CLERK Gender Identity Not on file Sexual Orientation Not on file 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
--- OUTSIDE RECORDS SUMMARY | 2024-09-25 06:41 | XMS_ITS | Encounter Summary ---
Author Organization [facility] Healthcare Address [address] [place] [address] Care Team Providers Care Geological Manager Name Role Phone Elton De La Fuente MD Primary Care Provider Encounter Details Date Type Department Care Team (Late st Contact Info) Description 11/14/2019 1:58 PM FISHING WORKER - 11/14/2019 3:05 PM FISHING WORKER Hospital Encounter [facility] INTERIM Gloria Murdock MD [facility] [address] [place] [address] Discharge Disposition: Discharge to home or self care Social History Tobacco Use Types Packs/Day Years Used Date Smoking Tobacco: Every Day Cigarettes 0.1 20 Alcohol Use Standard Drinks/Week Comments Not Currently 0 (1 standard drink = 0.6 oz pur e alcohol) Recovering alcoholic-whiskey Sex and Gender Information Value Date Recorded Sex Assigned at Not on file Legal Sex Male 6:34 PM FISHING WORKER Gender Identity Not on file Sexual Orientation Not on file 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 Not on file Not on file documented as of this encounter Last Filed Vital Signs Vital Sign Reading Time Taken Comments Blood Pressure 128/77 11/14/2019 2:23 PM FISHING WORKER Pulse 69 11/14/2019 2:23 PM FISHING WORKER Temperature 36.9 ??C (98.5 ??F) 11/14/2019 2:23 PM CS T Respiratory Rate - - Oxygen Saturation 98% 11/14/2019 2:23 PM FISHING WORKER Inhaled Oxygen Concentration - - Weight 89.7 kg (197 lb 12.8 oz) 11/14/2019 2:23 PM FISHING WORKER Height 182.9 cm (6') 11/14/2019 2:23 PM FISHING WORKER Body Mass Index 26.83 11/14/2019 2:23 PM FISHING WORKER documented in this encounter Medications at Time [...] on filedocumented in this encounter Care Teams Geological Manager Relationship Specialty Start Date End Date Elton De La Fuente MD PCP - General Family Medicine 09/04/19 12/03/19 documented as of this encounter
--- OUTSIDE RECORDS SUMMARY | 2024-09-25 06:41 | XMS_ITS | Encounter Summary ---
Author Organization [facility] Address [address] [place] [address] Care Team Providers Care Exceptional Student Education Aide Name Role Phone Kely Tijerina NP Primary Care Provider [phone] Elton De La Fuente MD Primary Care Provider + [phone] Encounter Details Date Type Department Care Team (Late st Contact Info) Description 05/27/2021 Telephone [facility] Cardiology [address] [facility] [address] [place] [address] Brittany Payne NP [address] [facility] [address] [place] [address] Social History Tobacco Use Types Packs/Day Years Used Date Smoking Tobacco: Every Day Cigarettes 0.1 20 Alcohol Use Standard Drinks/Week Comments Not Currently 0 (1 standard drink = 0.6 oz pur e alcohol) Recovering alcoholic-whiskey Sex and Gender Information Value Date Recorded Sex Assigned at Not on file Legal Sex Male 6:34 PM REGIONAL MEDICAL DIRECTOR Gender Identity Not on file Sexual Orientation Not on file 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 Pt aware to be here 245. PCP office notified. * Telephone Encounter - Katie Andrews RN - 05/27/2021 10:49 AM CDT Pt having back surgery on the , pt had an EKG that showed RBBB, per PCP this is not new but surgeon requiring cardiac clearance prior to surgery. Asking if we can accommodate having pt seen soon? * Telephone Encounter - Ayse Ortiz - 05/27/2021 9:20 AM CDT Pearl called from Dr. De La Fuente office requesting to speak with a nurse. Contact: documented in this encounter Plan of Treatment Not on file documented as of this encounter Visit Diagnoses Not on filedocumented in this encounter Care Teams Exceptional Student Education Aide Relationship Specialty Start Date End Date Kely Tijerina NP [address] [place] [id number] PCP - General 12/04/19 06/01/21 Elton De La Fuente MD [address] [place] [id number] PCP - General Family Medicine 06/02/21 documented as of this encounter
--- OUTSIDE RECORDS SUMMARY | 2024-09-25 06:41 | XMS_ITS | Encounter Summary ---
Author Organization [facility] Address [address] [place] [address] Care Team Providers Care Steam Shovel Operating Engineer Name Role Phone Elton De La Fuente MD Primary Care Provider Encounter Details Date Type Department Care Team (Late st Contact Info) Description 06/03/2021 Telephone [facility] Cardiology [address] [place] [address] Hunter Smith MD [address] [id number] Social History Tobacco Use Types Packs/Day Years Used Date Smoking Tobacco: Every Day Cigarettes 1 20 Smokeless Tobacco: Never Alcohol Use Standard Drinks/Week Comments Not Currently 0 (1 standard drink = 0.6 oz pur e alcohol) Recovering alcoholic-whiskey Sex and Gender Information Value Date Recorded Sex Assigned at Not on file Legal Sex Male 6:34 PM DESKTOP SUPPORT SPECIALIST Gender Identity Not on file Sexual Orientation Not on file 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 Brody' office. * Telephone Encounter - Katherine Luis Fritz - 06/03/2021 1:46 PM CDT Pt called requesting EKG to also be sent to (cardiac clearance) office.Thank you Contact:[phone] documented in this encounter Plan of Treatment Not on file documented as of this encounter Visit Diagnoses Not on filedocumented in this encounter Care Teams Steam Shovel Operating Engineer Relationship Specialty Start Date End Date Elton De La Fuente MD PCP - General Family Medicine 06/02/21 documented as of this encounter
--- OUTSIDE RECORDS SUMMARY | 2024-09-25 06:41 | XMS_ITS | Encounter Summary ---
Author Organization [facility] Address [address] [place] [address] Care Team Providers Care Railway Traction Line Worker Name Role Phone Elton De La Fuente MD Primary Care Provider Encounter Details Date Type Department Care Team (Late st Contact Info) Description 10/15/[address] 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 [facility] auth # [id number]; valid 10/17/19-12/01/19; exp 45 days. UNTS CLERK * Telephone Encounter - Carmen Cole MA - 10/15/2019 9:04 AM CST Information has been sent to clinical review with [facility] for pending approval for CPT 08749 MRI L-spine. Case # [id number] UNTS CLERK documented in this encounter Plan of Treatment Not on file documented as of this encounter Visit Diagnoses Not on filedocumented in this encounter Care Teams Railway Traction Line Worker Relationship Specialty Start Date End Date Elton De La Fuente MD PCP - General Family Medicine 09/04/19 12/03/19 documented as of this encounter
--- OUTSIDE RECORDS SUMMARY | 2024-09-25 08:40 | XMS_ITS | Encounter Summary ---
Author Organization [facility] Address [facility] [facility] [place] [address] [place] [address] Care Team Providers Care Fashion Journalist Name Role Phone Unavailable Primary Care Provider Unavailabl e Encounter Details Date Type Department Care Team (Late st Contact Info) Description 06/05/[address] [facility] [facility] [address] [facility] [place] [address] David Gil MD [address] [place] [phone] Social History Tobacco Use Types Packs/Day Years [...]
--- OUTSIDE RECORDS SUMMARY | 2024-09-25 08:40 | XMS_ITS | Encounter Summary ---
Author Organization [facility] Address [address] [place] [address]. [place] [address] [place] [address] Care Team Providers Care Prop Cutter Name Role Phone Genet De La Fuente MD Primary Care Provider [phone] Reason for Visit * Reason Comments Dehydration Encounter Details Date Type Department Care Team (Late st Contact Info) Description 05/08/2024 9:47 AM CDT - 05/08/2024 11:59 AM CDT Emergency [facility] [place] [address] Charity Tristan, CLAUDIA [address] [id number] Dehydration Discharge Disposition: Home or Self Care [...] care by your primary care physician or sap consultant.Please mention to your follow-up physician that [...] such as many narcotic drug combinations and [id number] cold medicines. * Attachments The following attachments cannot be sent through Care Everywhere. * Fatigue Discharge Instructions (Palauan) * Shortness of Breath, Adult ED (Palauan) documented in this encounter Medications at Time [...] CLAUDIA Shelby - 05/08/2024 9:51 AM CDT [place], [place] EMERGENCY DEPARTMENT ENCOUNTER HISTORICAL INFORMATION Primary [...] ECG [address] Ingrid Ceballos [address] [place] [address] Test Date: 2024-05-08 Pat Name: TRAMAINE MARIN Department: 41 Room: [facility] Gender: Male Knitted Garment Finisher: [id number] : 1970 Requested By: CHARITY TRISTAN Order Number: [id number] Reading MD: Jason Tapia Measurements Intervals [place] Rate: 76 P: 69 PA: 157 QRS: -27 QRSD: 86 T: 44 [...] XR CHEST PA+LAT Final Result by User, [id number] (05/08 102) EXAM: XR CHEST PA+LAT INDICATION: [...] 05/08/2025 at 2359, Eprescribe Class: Fax Pharmacy: [facility] [phone] - [facility] [address] (Ph #: [phone]) predniSONE (DELTASONE) 20 MG tablet Take 1 tablet (20 mg total) by mouth 2 (two) times daily for 4 days., Starting 05/08/2024, Until 05/12/2024, Eprescribe Class: Fax Pharmacy: [place], [place] - [phone] - [facility] [address] (Ph #: [phone]) CLAUDIA SHELBY PA 05/08/24 1205 Cosigned by [...] URINE CLEAN CATCH 05/08/2024 10:24 AM CDT [facility] COLOR (U) YELLOW 05/08/2024 10:47 AM CDT [facility] TRANSPARENCY CLEAR 05/08/2024 10:47 AM CDT [facility] SPECIFIC GRAVITY (U) 1.022 1.001 - 1.030 05/08/2024 10:47 AM CDT [facility] U PH 6.0 5.0 - 9.0 05/08/2024 10:47 AM CDT [facility] LEUKOCYTES (U) NEGATIVE NEGATIVE 05/08/2024 10:47 AM CDT [facility] NITRITES NEGATIVE NEGATIVE 05/08/2024 10:47 AM CDT [facility] PROTEIN RANDOM (U) 10 <30 MG/DL 05/08/2024 10:47 AM CDT [facility] GLUCOSE (U) NORMAL NORMAL MG/DL 05/08/2024 10:47 AM CDT [facility] KETONES MG/DL (U) NEGATIVE NEGATIVE MG/DL 05/08/2024 10:47 AM CDT [facility] UROBILINOGEN NORMAL NORMAL MG/DL 05/08/2024 10:47 AM CDT [facility] BILIRUBIN (U) NEGATIVE NEGATIVE MG/DL 05/08/2024 10:47 AM CDT [facility] BLOOD (U) NEGATIVE NEGATIVE 05/08/2024 10:47 AM CDT [facility] URINE SPECIMEN OBTAINED BY CLEAN CATCH PROCEDURE / Unknown 05/08/2024 10:27 AM CDT Charity TAYLOR URINE ORDERABLES Final Resu lt Performing Organization Address City/[facility] Co de Phone Number [facility] [address] [place] [address], * D-DIMER, QUANTITATIVE (05/08/2024 10:27 AM CDT) D-DIMER 325 0 - 500 ng{FEU}/mL 05/08/2024 11:15 AM CDT [facility] Comment: D-Dimer values less than [...] LABORATORY Final Resul t Performing Organization Address [facility] [facility] Co de Phone Number [facility] [address] [place] [address], * XR CHEST PA+LAT (05/08/2024 10:23 AM [...] CDT) 05/08/2024 10:0 9 AM CDT Narrative [facility] - 05/08/2024 11:29 AM CDT ?[facility] ? [address] [facility] ? Test Date: ?2024-05-08 Pat Name: ? TRAMAINE MARIN ?Department: ?? 41 ? Room: ? EXAM16 Gender: ? Male ? Knitted Garment Finisher: ?? [id number] : ?1970 ? Requested By: CHARITY TRISTAN Order Number: [id number] ? Reading MD: ?? Jason Tapia ? Measurements Intervals ?[place] ? Rate: ? 76 ? P: ?69 PA: ? 157 ?QRS: ?-27 QRSD: ? 86 ? T: ?44 QT: ? 386 ? QTc: ?436 ? Interpretive Statements SINUS RHYTHM RSR' In V1 Or V2 Right VCD Or RVH No previous ECG available for comparison Preliminary EKG Interpretation by CLAUDIA Harp Other ischemic changes, not STEMI Procedure Note Jason Tapia MD - 05/08/[address] Test Date: 2024-05-08 Pat Name: TRAMAINE MARIN Department: 41 Room: EXAM16 Gender: Male Knitted Garment Finisher: [id number] : 1970 Requested By: CHARITY TRISTAN Order Number: [id number] Reading MD: Jason Tapia Measurements Intervals [place] Rate: 76 P: 69 PA: 157 QRS: -27 QRSD: 86 T: 44 QT: 386 QTc: 436 Interpretive Statements SINUS RHYTHM RSR' In V1 Or V2 Right VCD Or RVH No previous ECG available for comparison Preliminary EKG Interpretation by CLAUDIA Harp Other ischemic changes, not STEMI Charity TAYLOR ECG ORDERABLES Final Resul t Performing Organization Address City/[facility]/ZIP Co de Phone Number [facility] ([place] * TROPONIN, QUANT (05/08/2024 10:00 AM CDT) TROPONIN I HIGH SENSITIVITY 4 <79 ng/L 05/08/2024 10:49 AM CDT [facility] Comment: HIGH DOSES OF BIOTIN, TROPONIN-SPECIFIC AUTOANTIBODIES, AND ANTIBODY THERAPY CONTAINING HAMA MAY INTERFERE WITH THIS TEST RESULT. CORRELATION TO CLINICAL HISTORY AND PRESENTATION RECOMMENDED. 05/08/2024 10:0 0 AM CDT [facility] LABORATORY Final Resul t Performing Organization Address City/[facility] Co de Phone Number [facility] [address] [place] [address], [place] [phone] * (ABNORMAL) COMPREHENSIVE METABOLIC PANEL (05/08/2024 10:00 AM CDT) [facility] GLUCOSE 161(H) 70 - 99 MG/DL 05/08/2024 10:49 AM CDT [facility] BUN 9 7 - 18 MG/DL 05/08/2024 10:49 AM CDT [facility] CREATININE S/P/B 0.95 0.7 - 1.3 MG/DL 05/08/2024 10:49 AM CDT [facility] SODIUM S/P/B 140 136 - 145 MMOL/L 05/08/2024 10:49 AM CDT [facility] POTASSIUM S/P/B 3.6 3.5 - 5.1 MMOL/L 05/08/2024 10:49 AM CDT [facility] CHLORIDE S/P/B 103 100 - 108 MMOL/L 05/08/2024 10:49 AM CDT [facility] CO2 28.2 21 - 32 MMOL/L 05/08/2024 10:49 AM CDT [facility] CALCIUM S/P/B 9.2 8.5 - 10.1 MG/DL 05/08/2024 10:49 AM CDT [facility] BILIRUBIN TOTAL S/P/B 1.3(H) 0.2 - 1.2 MG/DL 05/08/2024 10:49 AM CDT [facility] Comment: THIS ASSAY IS NOT RECOMMENDED FOR PATIENTS UNDERGOING TREATMENT WITH ELTROMBOPAG DUE TO THE POTENTIAL FOR FALSELY ELEVATED RESULTS. TOTAL PROTEIN S/P/B 7.4 6.4 - 8.2 G/DL 05/08/2024 10:49 AM CDT [facility] ALBUMIN S/P/B 3.7 3.4 - 5.0 G/DL 05/08/2024 10:49 AM CDT [facility] AST 17 15 - 37 U/L 05/08/2024 10:49 AM CDT [facility] ALT 22 16 - 60 U/L 05/08/2024 10:49 AM CDT [facility] ALKALINE PHOSPHATASE S/P/B 81 50 - 136 U/L 05/08/2024 10:49 AM CDT [facility] ANION GAP 8.8 5 - 15 MMOL/L 05/08/2024 10:49 AM CDT [facility] BUN CREATININE RATIO 9.5 6 - 26 05/08/2024 10:49 AM CDT [facility] A/G RATIO 1.0 1.0 - 2.0 RATIO 05/08/2024 10:49 AM CDT [facility] GFR ESTIMATE >90 >90 ML/MIN/1.7 3 M2 05/08/2024 10:49 AM CDT [facility] Comment: NOTE: eGFR is not calculated for patients <18 years of age. This is an estimated GFR calculation using the new CKD EPI creatinine equation without race and so does not require a correction factor for race. This estimated GFR should not be used for calculating drug doses. 05/08/2024 10:0 0 AM CDT us [facility] LABORAT[facility] Final Resul t [facility] [address] [place] [address], * (ABNORMAL) CBC W/DIFF AUTOMATED (05/08/2024 10:00 AM CDT) WBC 10.76 4.5 - 11.0 x10'3/uL 05/08/2024 10:24 AM CDT [facility] RBC 5.29 4.70 - 6.10 x10'6/uL 05/08/2024 10:24 AM CDT [facility] HGB 15.8 14.0 - 18.0 G/DL 05/08/2024 10:24 AM CDT [facility] HCT 47.2 43.0 - 54.0 % 05/08/2024 10:24 AM CDT [facility] MCV 89.2 80.0 - 94.0 FL 05/08/2024 10:24 AM CDT [facility] MCH 29.9 27.0 - 31.0 PG 05/08/2024 10:24 AM CDT [facility] MCHC 33.5 32.0 - 36.0 G/DL 05/08/2024 10:24 AM CDT [facility] RDW 13.3 11.5 - 14.5 % 05/08/2024 10:24 AM CDT [facility] PLT 177 130 - 400 x10'3/uL 05/08/2024 10:24 AM CDT [facility] MPV 11.4 9.3 - 12.2 FL 05/08/2024 10:24 AM CDT [facility] DIFFERENTIAL TYPE AUTOMATED DIFFERENTIAL 05/08/2024 10:24 AM CDT [facility] NEUTROPHILS % 72.7 % 05/08/2024 10:24 AM CDT [facility] LYMPHOCYTES % 18.4 % 05/08/2024 10:24 AM CDT [facility] MONOCYTES % 6.7 % 05/08/2024 10:24 AM CDT [facility] EOSINOPHILS 1.3 % 05/08/2024 10:24 AM CDT [facility] BASOPHILS 0.5 % 05/08/2024 10:24 AM CDT [facility] IMMATURE GRANS % 0.4 % 05/08/20 10:24 AM CDT [facility] ABS. NEUTROPHILS 7.83(H) 1.80 - 7.70 x10'3/uL 05/08/2024 10:24 AM CDT [facility] ABS. LYMPHOCYTES 1.98 1.00 - 4.80 x10'3/uL 05/08/2024 10:24 AM CDT [facility] ABS. MONOCYTES 0.72 0.30 - 0.82 x10'3/uL 05/08/2024 10:24 AM CDT [facility] ABS. EOSINOPHILS 0.14 0.04 - 0.54 x10'3/uL 05/08/2024 10:24 AM CDT [facility] ABS. BASOPHILS 0.05 0.01 - 0.08 x10'3/uL 05/08/2024 10:24 AM CDT [facility] ABS. IMMATURE GRANULOCYTES 0.04 0.00 - 0.49 x10'3/uL 05/08/2024 10:24 AM CDT [facility] 05/08/2024 10:0 0 AM CDT [facility]ORAT[facility] Final Resul t [facility] [address] [place] [address], documented in this encounter Visit Diagnoses Diagnosis [...] RN) documented in this encounter Care Teams Prop Cutter Relationship Specialty Start Date End Date Genet De La Fuente MD [address] [address] PCP - General FAMILY PRACTICE 05/08/24 documented as of this encounter
--- OUTSIDE RECORDS SUMMARY | 2024-09-25 08:40 | XMS_ITS | Encounter Summary ---
Author Organization [facility] Address [address] [place] [address]. [place], [place] [address] [place] [address] Care Team Providers Care Prescriptionist Name Role Phone Elton De La Fuente MD Primary Care Provider [phone] Encounter Details Date Type Department Care Team [...] on filedocumented in this encounter Care Teams Prescriptionist Relationship Specialty Start Date End Date Elton De La Fuente MD [address] [place] [address] PCP - General FAMILY PRACTICE 05/08/24 documented as of this encounter
--- OUTSIDE RECORDS SUMMARY | 2024-09-25 08:40 | XMS_ITS | Encounter Summary ---
Author Organization [facility] Address [address] [place] [address]. [place], [place] [address] [place] [address] Care Team Providers Care Location Worker Name Role Phone Unavailable Primary Care Provider Unavailabl e Encounter Details Date Type Department Care Team (Late st Contact Info) Description 02/19/[address] [facility] [address] [place] [address] , Luis Enrique Silva MD Social History [...]
--- OUTSIDE RECORDS SUMMARY | 2024-09-25 08:40 | XMS_ITS | Encounter Summary ---
Author Organization [facility] Address [address] [place] [address]. [place] [address] [place] [address] Care Team Providers Care Mortician Helper Name Role Phone Unavailable Primary Care Provider Unavailabl e Encounter Details Date Type Department Care Team (Late st Contact Info) Description 02/07/1998 [place] [address] , Generic Conversion, Social History Tobacco Use [...]
--- OUTSIDE RECORDS SUMMARY | 2024-09-25 08:40 | XMS_ITS | Clinical Summary ---
Author Organization [facility] Address [address] [place] [address]. [place] [address] [place] [address] Care Team Providers Care Frog Or Oyster Farmworker Name Role Phone Elton De La Fuente MD Primary Care Provider [phone] Allergies Active Allergy Reactions Criticality Noted Date Comments Pseudoephedrine Other (see comment) Low 06/02/2021 shakey Medications albuterol sulfate HFA 108 (90 Base) MCG/ACT inhaler Inhale 2 puffs into the lungs every 6 (six) hours as needed. 18 g 05/08/2024 Active Social History Tobacco Use Types Packs/Day Years Used Date Smoking Tobacco: Never Assessed Sex and Gender Information Value Date Recorded Sex Assigned at Not on file Legal Sex Male 8:30 PM CDT Gender Identity Not on file Sexual Orientation Not on file Last Filed Vital Signs [...] Mass Index 23.46 05/08/2024 9:44 AM CDT Plan of Treatment Health Maintenance Due Date Last Done Comments Colorectal Cancer Screening Colonoscopy (10 Years) 1970 Annual Physical 1973 Hepatitis C 1988 DTaP, Tdap and Td Vaccines ( 1 - Tdap) 1989 Hepatitis B Vaccines (1 of 3 - 19+ 3-dose series) 1989 Zoster Vaccines (1 of 2) 2020 COVID-19 Vaccine (1 - 2023-2 5 season) 2024 Influenza Adult (#1) 2024 Meningococcal Vaccine Aged Out No stacey glenroy eligible based on patient's age to complete this topic Pneumococcal Vaccine: Pediat rics (0 to 5 Years) and At-Risk Patients (6 to 64 Years) Aged Out No longer eligible b ased on patient's age to complete this topic RSV Immunizations Under 20 Months Aged Out No longer eligible based on patient's age to complete this topic Insurance [facility] Care Teams Frog Or Oyster Farmworker Relationship Specialty Start Date End Date Elton De La Fuente MD [address] [address] PCP - General FAMILY PRACTICE 05/08/24
--- OUTSIDE RECORDS SUMMARY | 2024-09-25 08:40 | XMS_ITS | Encounter Summary ---
Author Organization [facility] Address [facility] [place] [address] [place] [address] Care Team Providers Care Cloth Spreader Name Role Phone Unavailable Primary Care Provider Unavailabl e Encounter Details Date Type Department Care Team (Late st Contact Info) Description 06/17/[address] [facility] [address] [place] [address] Daksha Lee MD [address] [facility] [address] [place] [address] Social History Tobacco Use Types [...]
--- OUTSIDE RECORDS SUMMARY | 2024-09-25 08:41 | XMS_ITS | Referral Summary ---
Author Organization [facility] Address [address] [place] [address] Care Team Providers Care Jewelry Consultant Name Role Phone Elton De La Fuente MD Primary Care Provider [phone] Encounters Date Type Department Care Team Description 09/19/2024 10:31 AM DRAFTSPERSON Anesthesia Event [facility] Operating Room [address] [place] [phone] Stephenie Rodriguez DO Tynes, Jessika Olegovna, AGATHA 09/19/2024 10:03 AM DRAFTSPERSON - 09/19/2024 12:08 PM DRAFTSPERSON Surgery [facility] Operating Room [address] [place] [address] [phone] Kevin Brody MD INCISION AND DRAINAGE - LUMBAR 09/18/2024 Orders Only [address] [phone] Kita Astudillo MD 09/18/2024 7:53 PM DRAFTSPERSON - Present Hospital Encounter [facility] [address] [place] [address] [phone] Kita Astudillo MD Willis, Devin Ray, MD Sufi, Jovany Weeks MD Wound infection (Primary Dx); Cellulitis of other specified site 09/17/2024 Patient Self-Triage [facility] [address] [place] [address] [place] [address] Mychart, Generic Provider 08/13/2024 5:41 AM DRAFTSPERSON - 08/14/2024 12:58 PM DRAFTSPERSON Hospital Encounter [address] [phone] Kevin Brody MD Pseudoclaudication syndrome Discharge Disposition: Discharge to home or self care 08/13/2024 Orders Only [facility] Operating Room [address] [place] [phone] Kevin Brody MD 08/13/2024 7:30 AM DRAFTSPERSON - 08/13/2024 12:30 PM DRAFTSPERSON Surgery [facility] Operating Room [address] [place] [phone] Kevin Brody MD L3-5 Decompressive Laminectomy, Posterior Lumbar Interbody Fusion using Zavation EZ Span Cage, Mathew Screws, Local Autograph and L4-5 Repeat Discectomy 08/13/2024 7:26 AM DRAFTSPERSON Anesthesia Event [facility] Operating Room [address] [place] [phone] Jason Christianson MD Salameh, Besan Mohammed, PA 07/30/2024 10:15 AM DRAFTSPERSON Office Visit [facility] [address] [place] [phone] Hunter Smith MD Preop cardiovascular exam (Primary Dx); Tobacco abuse; Lipid screening 07/23/2024 Telephone [facility] Anesthesia [address] [place] [phone] Ara Robbins NP 07/23/2024 8:45 AM CDT Pre-Admission Testing [facility] Pre Anesthesia Testing [address] [place] [phone] Preoperative testing (Primary Dx) from Last [...] 0.6 oz pur e alcohol) Recovering alcoholic-whiskey [facility] Utilities Answer Date Recorded In the past 12 months has e [employer], gas, oil, or water [employer] threatened to shut off services in your [...] week 09/19/2024 How often do you attend [facility] or hoahaoism services? Never 09/19/2024 Do you belong to any clubs o r organizations such as taoism groups, unions, fraternal or athletic groups, or [...] any time in the past 12 m the rehabilitation institute, were you homeless or living in a mcc (including now)? No 09/19/2024 Personal Safety Answer Date Recorded Have you ever been in or are you currently in a harmful physical or emotional relationship or is someone making you feel afraid or unsafe? 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 Not on file Not on file Not on file Last Filed Vital Signs Vital Sign Reading Time Taken Comments Blood Pressure 127/83 09/25/2024 8:00 AM DRAFTSPERSON Pulse 87 09/25/2024 8:00 AM DRAFTSPERSON Temperature 36.6 ??C (97.8 ??F) 09/25/2024 8:00 AM CS T Respiratory Rate 16 09/25/2024 8:00 AM DRAFTSPERSON Oxygen Saturation 100% 09/25/2024 8:00 AM DRAFTSPERSON Inhaled Oxygen Concentration - - Weight 84.4 kg (186 lb) 09/19/2024 9:40 AM DRAFTSPERSON Height 182.9 cm (6') 09/19/2024 9:40 AM DRAFTSPERSON Body Mass Index 25.23 09/19/2024 9:40 AM DRAFTSPERSON Plan of Treatment Not on file Medical Devices Implanted Type Area Housekeeping Worker Device Identifier Shelf Expiration Date Model / Serial / Lot Biocomposites Stimulan Rapid Cure Kit Paste Senior Trial Attorney 5cc 12.5cc Bone Void 620-005 - [id number] Implanted:Qty: 1 on 08/13/2024 by Kevin Brody MD at [facility] N/A: Spine Lumbar Biocomposites [id number] 04/24/2027 620-005 / / [id number] [employer] Cage Spinal Lumbar 10 Degree Tlif Expandable 7-11.5mm Titanium [id number] - [id number] Implanted:Qty: 2 on 08/13/2024 by Kevin Brody MD at [facility] N/A: Spine Lumbar [employer] 360-[id number] 10 / / Amina Spine 4.5mm 35mm Polyaxial Spine Screw Bone Deformity [id number] - [id number] Implanted:Qty: 6 on 08/13/2024 by Kevin Brody MD at [facility] N/A: Spine Lumbar Britt Spine [id number] 5 / / Amina Spine 4.5mm 75mm Contour Ulises Spinal Cocr [id number] - [id number] Implanted:Qty: 2 on 08/13/2024 by Kevin Brody MD at [facility] N/A: Spine Lumbar Amina Spine [id number] 5 / / Britt Spine 26mm Semiadjustable Transverse Spine Connector Ulises Posterior 3001-67079m - [id number] Implanted:Qty: 1 on 08/13/2024 by Kevin Brody MD at [facility] N/A: Spine Lumbar Britt Spine [id number] 6A / / Britt Spine 32mm Semiadjustable Transverse Spine Connector Ulises Posterior [id number] - [id number] Implanted:Qty: 1 on 08/13/2024 by Kevin Brody MD at [facility] N/A: Spine Lumbar Amina Spine [id number] 2A / / Procedures * The patient is currently admitted. The information in this section might not be complete until the patient is discharged. Procedure Name Priority Date/Time Associated Diagnosis Comments EGFR Routine 09/25/2024 5:49 AM DRAFTSPERSON RENAL FUNCTION PANEL Routine 09/25/2024 5:49 AM DRAFTSPERSON EGFR Routine 09/24/2024 7:50 AM DRAFTSPERSON RENAL FUNCTION PANEL Routine 09/24/2024 7:50 AM DRAFTSPERSON CBC WITHOUT DIFFERENTIAL Routine 09/24/2024 7:50 AM DRAFTSPERSON DRUGS OF ABUSE SCREEN, URINE WITHOUT CONFIRMATION Routine 09/23/2024 6:26 PM DRAFTSPERSON EGFR Routine 09/23/2024 6:17 AM DRAFTSPERSON RENAL FUNCTION PANEL Routine 09/23/2024 6:17 AM DRAFTSPERSON CBC WITHOUT DIFFERENTIAL Routine 09/23/2024 6:17 AM DRAFTSPERSON XR CHEST 1 VIEW ED Urgent/IP Urgent 09/22/2024 12:05 PM DRAFTSPERSON MS INSJ NON-TUNNELED CENTRAL VENOUS CATH AGE 5 YR/> Routine 09/22/2024 11:15 AM DRAFTSPERSON Wound infection EGFR Routine 09/22/2024 8:12 AM DRAFTSPERSON RENAL FUNCTION PANEL Routine 09/22/2024 8:12 AM DRAFTSPERSON CBC WITHOUT DIFFERENTIAL Routine 09/22/2024 8:12 AM DRAFTSPERSON EGFR Routine 09/21/2024 6:09 AM DRAFTSPERSON RENAL FUNCTION PANEL Routine 09/21/2024 6:09 AM DRAFTSPERSON CBC WITHOUT DIFFERENTIAL Routine 09/21/2024 6:09 AM DRAFTSPERSON VANCOMYCIN LEVEL TROUGH Timed 09/20/2024 5:36 PM DRAFTSPERSON CBC WITHOUT DIFFERENTIAL Routine 09/20/2024 5:58 AM DRAFTSPERSON MYCOLOGY (FUNGAL) CULTURE Routine 09/19/2024 11:08 AM DRAFTSPERSON TISSUE AEROBIC AND ANAEROBIC CULTURE AND GRAM STAIN Routine 09/19/2024 11:08 AM DRAFTSPERSON MYCOLOGY (FUNGAL) CULTURE Routine 09/19/2024 11:07 AM DRAFTSPERSON AEROBIC AND ANAEROBIC CULTURE AND GRAM STAIN Routine 09/19/2024 11:07 AM DRAFTSPERSON MYCOLOGY (FUNGAL) CULTURE Routine 09/19/2024 11:07 AM DRAFTSPERSON AEROBIC AND ANAEROBIC CULTURE AND GRAM STAIN Routine 09/19/2024 11:07 AM DRAFTSPERSON MS AN PROCEDURE PLACEHOLDER Routine 09/19/2024 10:49 AM DRAFTSPERSON MS AN ELECTIVE ENDOTRACHEAL AIRWAY Routine 09/19/2024 10:49 AM DRAFTSPERSON INCISION AND DRAINAGE - BACK 09/19/2024 10:30 AM DRAFTSPERSON LUMBAR WOUND INFECTION DIFFERENTIAL AUTO Routine 09/19/2024 1:1 9 AM DRAFTSPERSON CBC WITH AUTO DIFFERENTIAL Routine 09/19/2024 1:19 AM DRAFTSPERSON EGFR Routine 09/19/2024 12:55 AM DRAFTSPERSON COMPREHENSIVE METABOLIC PANEL Routine 09/19/2024 12:55 AM DRAFTSPERSON BLOOD CULTURE Routine 09/19/2024 12:55 AM DRAFTSPERSON BLOOD CULTURE Routine 09/19/2024 12:55 AM DRAFTSPERSON CBC WITHOUT DIFFERENTIAL Routine 08/14/2024 7:13 AM DRAFTSPERSON SURGICAL PATHOLOGY Routine 08/13/2024 11:16 AM DRAFTSPERSON FL FLUOROSCOPY < 1 HOUR IP Routine 08/13/2024 11:08 AM DRAFTSPERSON XR SPINE LUMBAR 2 OR 3 VIEWS IP Routine 08/13/2024 11:08 AM DRAFTSPERSON MS AN PROCEDURE PLACEHOLDER Routine 08/13/2024 7:59 AM DRAFTSPERSON MS AN ELECTIVE ENDOTRACHEAL AIRWAY Routine 08/13/2024 7:59 AM DRAFTSPERSON FUSION LUMBAR - POSTERIOR 2 LEVELS 08/13/2024 7:30 AM DRAFTSPERSON Pseudoclaudication syndrome B CHECK SAMPLE STAT 08/13/2024 6:59 AM DRAFTSPERSON POCT LIPID PANEL Routine 07/30/2024 10:33 AM DRAFTSPERSON Lipid screening ECG 12-LEAD Routine 07/30/2024 10:22 AM DRAFTSPERSON Preop cardiovascular exam DIFFERENTIAL AUTO Routine 07/23/2024 10:10 AM CDT Preoperative testing CBC WITH AUTO DIFFERENTIAL Routine 07/23/2024 10:10 AM CDT Preoperative testing HEMOGLOBIN A1C Routine 07/23/2024 10:10 AM CDT Preoperative testing VITAMIN D 25 HYDROXY Routine 07/23/2024 10:10 AM CDT Preoperative testing TYPE AND SCREEN Routine 07/23/2024 9:54 AM CDT Preoperative testing from Last 3 Months Results * eGFR (09/25/2024 5:49 AM DRAFTSPERSON) [facility] eGFR >90 >=60 mL/min/1. 73 m2 [...] last reviewed 2021. Blood 09/25/2024 5:49 AM DRAFTSPERSON 09/25/2024 6:01 AM DRAFTSPERSON us Mitchell Grajeda MD LAB BLOOD ORDERABLES Final R esult [facility] [address] [place] [address] * (ABNORMAL) Renal function panel (09/25/2024 5:49 AM DRAFTSPERSON) Sodium 142 135 - 145 mmol/L Potassium, pl 3.9 3.3 - 4.9 mmol/L [facility] Chloride 103 97 - 110 mmol/L [facility] CO2 29 22 - 32 mmol/L [facility] Anion gap 10 2 - 15 mmol/L [facility] BUN 10 6 - 25 mg/dL [facility] Creatinine 0.70(L) 0.80 - 1.30 mg/dL [facility] Glucose 88 70 - 199 mg/dL [facility] Comment: Interpretive Data Fasting glucose >/= 126 [...] 2022. Calcium 8.8 8.5 - 10.3 mg/dL [facility] Phosphorus, pl 4.1 2.3 - 4.5 mg/dL [facility] Albumin 3.7 3.5 - 5.0 g/dL [facility] Blood 09/25/2024 5:49 AM DRAFTSPERSON 09/25/2024 6:01 AM DRAFTSPERSON us Mitchell Grajeda MD LAB BLOOD ORDERABLES Final R esult [facility] [address] Department [place] [address] * eGFR (09/24/2024 7:50 AM DRAFTSPERSON) eGFR >90 >=60 mL/min/1. 73 m2 Comment: [...] last reviewed 2021. Blood 09/24/2024 7:50 AM DRAFTSPERSON 09/24/2024 8:09 AM DRAFTSPERSON us Mitchell Grajeda MD LAB BLOOD ORDERABLES Final R esult Performing Organization Address [facility] Co de Phone Number [facility] [address] [employer] [place], [place] [id number] * (ABNORMAL) CBC without differential (09/24/2024 7:50 AM DRAFTSPERSON) Pathologist [facility] WBC 11.4(H) 3.8 - 9.9 K/cumm Hgb 13.0 13.0 - 17.5 g/dL [facility] Hct 40.2 38.9 - 50.3 % [facility] Plt 280 150 - 400 K/cumm [facility] MPV 10.8 9.1 - 12.3 fL [facility] RBC 4.40 4.30 - 5.80 M/cumm [facility] MCV 91.4 81.3 - 96.4 fL [facility] MCH 29.5 27.1 - 33.3 pg [facility] MCHC 32.3 32.3 - 35.7 g/dL [facility] RDW CV 13.0 11.1 - 14.9 % [facility] RDW SD 43.6 35.7 - 48.1 fL [facility] NRBC abs 0.00 0.00 - 0.01 K/cumm [facility] Blood 09/24/2024 7:50 AM DRAFTSPERSON 09/24/2024 8:10 AM DRAFTSPERSON us Kevin Brody MD LAB BLOOD ORDERABLES Suzie l Result Performing Organization Address [facility]/ZIP Co de Phone Number [facility] [address] Department [employer] [place], [place] [phone] * (ABNORMAL) Renal function panel (09/24/2024 7:50 AM DRAFTSPERSON) Pathologist [facility] Sodium 141 135 - 145 mmol/L Potassium, pl 4.0 3.3 - 4.9 mmol/L [facility] Chloride 101 97 - 110 mmol/L [facility] CO2 28 22 - 32 mmol/L [facility] Anion gap 12 2 - 15 mmol/L [facility] BUN 13 6 - 25 mg/dL [facility] Creatinine 0.75(L) 0.80 - 1.30 mg/dL [facility] Glucose 154 70 - 199 mg/dL [facility] Comment: Interpretive Data Fasting glucose >/= 126 [...] 2022. Calcium 9.0 8.5 - 10.3 mg/dL [facility] Phosphorus, pl 3.7 2.3 - 4.5 mg/dL [facility] Albumin 3.9 3.5 - 5.0 g/dL [facility] Blood 09/24/2024 7:50 AM DRAFTSPERSON 09/24/2024 8:09 AM DRAFTSPERSON us Mitchell Grajeda MD LAB BLOOD ORDERABLES Final R esult [facility] [address] Department [place] [address] * (ABNORMAL) Drugs of Abuse Screen, Urine without Confirmation (09/23/2024 6:26 PM DRAFTSPERSON) [facility] Amphetamine, ur Not Detected CutOff 500ng/mL Comment: Interpretive Data - Amphetamines: ??Samples containing greater than 500 ng/mL d-methamphetamine ??or other cross-reacting amphetamine compounds are reported as positive. ??Amphetamine immunoassays are subject to significant false positive rates due to cross-reactivity of non-amphetamine drugs. Confirmatory testing required for definitive results. Current Interpretive Data was last reviewed 2023. Barbiturates, ur Not Detected CutOff 200ng/mL [facility] Comment: Interpretive Data - Barbiturates: ??Samples containing greater than 200 ng/mL secobarbital or other cross-reacting barbiturate compounds are reported as positive. ??False positive and false negative results are possible. Confirmatory testing required for definitive results. Current Interpretive Data was last reviewed 2023. Benzodiazepines, ur Screen Positive, presumptive (A) CutOff 100ng/mL [facility] Comment: Interpretive Data - Benzodiazepines: ??Samples containing greater than 100 ng/mL nordiazepam or other cross-reacting compounds are reported as positive. False positive and false negative results are possible. Confirmatory testing required for definitive results. Current Interpretive Data was last reviewed 2023. Cannabinoids, ur Not Detected CutOff 50 ng/mL [facility] Comment: Interpretive Data - Cannabinoids: ??Samples containing greater than 50 ng/mL delta-9 THC -COOH or other cross-reacting compounds are reported as positive. ??False positive and false negative results are possible. ??Confirmatory testing required for definitive results. Current Interpretive Data was last reviewed 2023. Cocaine, ur Not Detected CutOff 150ng/mL [facility] Comment: Interpretive Data - Cocaine: ??Samples containing greater than 150 ng/mL benzoylecgonine or other cross-reacting compounds are reported as positive. False positive and false negative results are possible. Confirmatory testing required for definitive results. Current Interpretive Data was last reviewed 2023. Fentanyl, Ur Not Detected CutOff 5 ng/mL [facility] Comment: Interpretive Data - Fentanyl: ?? Samples containing greater than 5 ng/mL norfentanyl, fentanyl, or other cross-reacting fentanyl compounds are reported as positive. False positive and false negative results are possible. Confirmatory testing required for definitive results. Current Interpretive Data was last reviewed 2023. Methadone, ur Not Detected CutOff 300ng/mL [facility] Comment: Interpretive Data - Methadone: ??Samples containing greater than 300 ng/mL d,l-methadone or other cross-reacting compounds are reported as positive. ??False positive and false negative results are possible. Confirmatory testing required for definitive results. Current Interpretive Data was last reviewed 2023. Opiates, ur Not Detected CutOff 300ng/mL [facility] Comment: Interpretive Data - Opiates: ??Samples containing greater than 300 ng/mL morphine or other cross-reacting compounds are reported as positive. ??False positive and false negative results are possible. Confirmatory testing required for definitive results. Current Interpretive Data was last reviewed 2023. Oxycodone, ur Screen Positive, presumptive (A) CutOff 100ng/mL [facility] Comment: Interpretive Data - Oxycodone: ??Samples containing greater than 100 ng/mL oxycodone or other cross-reacting compounds are reported as ??positive. ??False positive and false negative results are possible. Confirmatory testing required for definitive results. Current Interpretive Data was last reviewed 2023. Phencyclidine, ur Not Detected CutOff 25 ng/mL [facility] Comment: Interpretive Data - Phencyclidine: ??Samples containing greater than 25 ng/mL phencyclidine or other cross-reacting compounds are reported as positive. ??False positive and false negative results are possible. Confirmatory testing required for definitive results. Current Interpretive Data was last reviewed 2023. Urine Creatinine 87 mg/dL [facility] Comment: Interpretive Data Urine Creatinine: < 10 mg/dL is extremely dilute = or > 10 but < 20 mg/dL is dilute = or > 20 mg/dL is normal Current Interpretive Data was last revised on 2017. Urine 09/23/2024 6:26 PM DRAFTSPERSON 09/23/2024 6:33 PM DRAFTSPERSON Narrative [facility] - 09/23/2024 7:11 PM DRAFTSPERSON Drug of Abuse screening is performed by immunoassay for medical purposes only. ??This is not to be used for Pain Management purposes. us Jovany Stubsb MD LAB URINE ORDERABLES Final Result [facility] [address] Department [place] [address] * eGFR (09/23/2024 6:17 AM DRAFTSPERSON) eGFR >90 >=60 mL/min/1. 73 m2 Comment: [...] last reviewed 2021. Blood 09/23/2024 6:17 AM DRAFTSPERSON 09/23/2024 6:34 AM DRAFTSPERSON us Mitchell Grajeda MD LAB BLOOD ORDERABLES Final R esult [facility] [address] Department [place] [address] * (ABNORMAL) CBC without differential (09/23/2024 6:17 AM DRAFTSPERSON) WBC 8.7 3.8 - 9.9 K/cumm Hgb 12.7(L) 13.0 - 17.5 g/dL [facility] Hct 39.6 38.9 - 50.3 % [facility] Plt 244 150 - 400 K/cumm [facility] MPV 10.9 9.1 - 12.3 fL [facility] RBC 4.30 4.30 - 5.80 M/cumm [facility] MCV 92.1 81.3 - 96.4 fL [facility] MCH 29.5 27.1 - 33.3 pg [facility] MCHC 32.1(L) 32.3 - 35.7 g/dL [facility] RDW CV 13.0 11.1 - 14.9 % [facility] RDW SD 43.8 35.7 - 48.1 fL [facility] NRBC abs 0.00 0.00 - 0.01 K/cumm [facility] Blood 09/23/2024 6:17 AM DRAFTSPERSON 09/23/2024 6:34 AM DRAFTSPERSON us Kevin Brody MD LAB BLOOD ORDERABLES Suzie l Result [facility] [address] Department [place] [address] * (ABNORMAL) Renal function panel (09/23/2024 6:17 AM DRAFTSPERSON) Sodium 141 135 - 145 mmol/L Potassium, pl 4.1 3.3 - 4.9 mmol/L [facility] Chloride 100 97 - 110 mmol/L [facility] CO2 30 22 - 32 mmol/L [facility] Anion gap 11 2 - 15 mmol/L [facility] BUN 10 6 - 25 mg/dL [facility] Creatinine 0.72(L) 0.80 - 1.30 mg/dL [facility] Glucose 95 70 - 199 mg/dL [facility] Comment: Interpretive Data Fasting glucose >/= 126 [...] 2022. Calcium 8.7 8.5 - 10.3 mg/dL [facility] Phosphorus, pl 3.9 2.3 - 4.5 mg/dL [facility] Albumin 3.5 3.5 - 5.0 g/dL [facility] Blood 09/23/2024 6:17 AM DRAFTSPERSON 09/23/2024 6:34 AM DRAFTSPERSON us Mitchell Grajeda MD LAB BLOOD ORDERABLES Final R esult [facility] [address] Department [place] [address] * X-ray chest 1 view (Portable) (09/22/2024 12:05 PM DRAFTSPERSON) Anatomical Region Laterality Modality Body, Chest N/A Computed Radiogr aphy 09/22/2024 12:4 0 PM DRAFTSPERSON Impressions 09/22/2024 12:40 PM DRAFTSPERSON Left upper extremity PICC tip in the mid SVC. Electronically signed by: Akil Cerda D.O. Narrative 09/22/2024 12:40 PM DRAFTSPERSON EXAMINATION: XR CHEST 1 VIEW HISTORY: check [...] IMG XR PROCEDURES Fi nal Result * MS INSJ NON-TUNNELED CENTRAL VENOUS CATH AGE 5 YR/> (09/22/2024 11:15 AM DRAFTSPERSON) Narrative Sue Steinberg PA - 09/22/2024 11:15 AM DRAFTSPERSON Sue Steinberg PA ? 09/22/2024 11:46 AM PICC Line Insertion Date/Time: 09/22/2024 11:15 AM Performed by: Sue Steinberg PA Authorized by: Sue Steinberg PA ?? [place] Protocol: RN Notified of Procedure: yes ?? Informed consent: ??Risks, benefits, alternatives discussed and patient/it sales representative/guardian agrees and accepts Patient's stated [...] Final Result * eGFR (09/22/2024 8:12 AM DRAFTSPERSON) eGFR >90 >=60 mL/min/1. 73 m2 Comment: [...] last reviewed 2021. Blood 09/22/2024 8:12 AM DRAFTSPERSON 09/22/2024 8:51 AM DRAFTSPERSON us Mitchell Grajeda MD LAB BLOOD ORDERABLES Final R esult [facility] [address] Department [place] [address] * CBC without differential (09/22/2024 8:12 AM DRAFTSPERSON) [facility] WBC 8.5 3.8 - 9.9 K/cumm Hgb 13.6 13.0 - 17.5 g/dL [facility] Hct 41.9 38.9 - 50.3 % [facility] Plt 241 150 - 400 K/cumm [facility] MPV 11.4 9.1 - 12.3 fL [facility] RBC 4.59 4.30 - 5.80 M/cumm [facility] MCV 91.3 81.3 - 96.4 fL [facility] MCH 29.6 27.1 - 33.3 pg [facility] MCHC 32.5 32.3 - 35.7 g/dL [facility] RDW CV 13.0 11.1 - 14.9 % [facility] RDW SD 43.8 35.7 - 48.1 fL [facility] NRBC abs 0.00 0.00 - 0.01 K/cumm [facility] Blood 09/22/2024 8:12 AM DRAFTSPERSON 09/22/2024 8:52 AM DRAFTSPERSON Kevin Brody MD LAB BLOOD ORDERABLES Suzie gutierrez Result [facility] [address] Department [place] [address] * (ABNORMAL) Renal function panel (09/22/2024 8:12 AM DRAFTSPERSON) [facility] Sodium 143 135 - 145 mmol/L Potassium, pl 3.7 3.3 - 4.9 mmol/L [facility] Chloride 100 97 - 110 mmol/L [facility] CO2 31 22 - 32 mmol/L [facility] Anion gap 12 2 - 15 mmol/L [facility] BUN 9 6 - 25 mg/dL [facility] Creatinine 0.77(L) 0.80 - 1.30 mg/dL [facility] Glucose 144 70 - 199 mg/dL [facility] Comment: Interpretive Data Fasting glucose >/= 126 [...] 2022. Calcium 9.3 8.5 - 10.3 mg/dL [facility] Phosphorus, pl 4.6(H) 2.3 - 4.5 mg/dL [facility] Albumin 4.1 3.5 - 5.0 g/dL [facility] Blood 09/22/2024 8:12 AM DRAFTSPERSON 09/22/2024 8:51 AM DRAFTSPERSON us Mitchell Grajeda MD LAB BLOOD ORDERABLES Final R esult [facility] [address] Department [place] [address] * eGFR (09/21/2024 6:09 AM DRAFTSPERSON) eGFR >90 >=60 mL/min/1. 73 m2 Comment: [...] last reviewed 2021. Blood 09/21/2024 6:09 AM DRAFTSPERSON 09/21/2024 7:01 AM DRAFTSPERSON us Mitchell Grajeda MD LAB BLOOD ORDERABLES Final R esult [facility] [facility] [address] [place] [address] * (ABNORMAL) CBC without differential (09/21/2024 6:09 AM DRAFTSPERSON) WBC 8.8 3.8 - 9.9 K/cumm Hgb 11.7(L) 13.0 - 17.5 g/dL [facility] Hct 36.0(L) 38.9 - 50.3 % [facility] Plt 162 150 - 400 K/cumm [facility] MPV 12.0 9.1 - 12.3 fL [facility] RBC 3.93(L) 4.30 - 5.80 M/cumm [facility] MCV 91.6 81.3 - 96.4 fL [facility] MCH 29.8 27.1 - 33.3 pg [facility] MCHC 32.5 32.3 - 35.7 g/dL [facility] RDW CV 13.0 11.1 - 14.9 % [facility] RDW SD 44.1 35.7 - 48.1 fL [facility] NRBC abs 0.00 0.00 - 0.01 K/cumm [facility] Blood 09/21/2024 6:09 AM DRAFTSPERSON 09/21/2024 7:01 AM DRAFTSPERSON us Kevin Brody MD LAB BLOOD ORDERABLES Suzie l Result Performing Organization Address City/[facility]/ZIP Co de Phone Number [facility] [address] [place] [place] [address] * (ABNORMAL) Renal function panel (09/21/2024 6:09 AM DRAFTSPERSON) [facility] Sodium 143 135 - 145 mmol/L Potassium, pl 3.5 3.3 - 4.9 mmol/L [facility] Chloride 105 97 - 110 mmol/L [facility] CO2 26 22 - 32 mmol/L [facility] Anion gap 12 2 - 15 mmol/L [facility] BUN 10 6 - 25 mg/dL [facility] Creatinine 0.70(L) 0.80 - 1.30 mg/dL [facility] Glucose 102 70 - 199 mg/dL [facility] Comment: Interpretive Data Fasting glucose >/= 126 [...] 2022. Calcium 8.6 8.5 - 10.3 mg/dL [facility] Phosphorus, pl 3.6 2.3 - 4.5 mg/dL [facility] Albumin 3.3(L) 3.5 - 5.0 g/dL [facility] Blood 09/21/2024 6:09 AM DRAFTSPERSON 09/21/2024 7:01 AM DRAFTSPERSON us Mitchell Grajeda MD LAB BLOOD ORDERABLES Final R esult Performing Organization Address [facility]/ZIP Co de Phone Number [facility] [address] Department [employer] [place], [place] [id number] * (ABNORMAL) Vancomycin level trough Please draw trough at this specific time. (09/20/2024 5:36 PM DRAFTSPERSON) [facility] Vancomycin trough 7.4(L) 10.0 - 20.0 mcg/mL Blood 09/20/2024 5:36 PM DRAFTSPERSON 09/20/2024 5:40 PM DRAFTSPERSON Narrative [facility] - 09/20/2024 6:00 PM DRAFTSPERSON Please draw trough at this specific time. us Mitchell Grajeda MD LAB BLOOD ORDERABLES Final R esult Performing Organization Address City/[facility]/ZIP Co de Phone Number [facility] [address] [place] [place] [address] * (ABNORMAL) CBC without differential (09/20/2024 5:58 AM DRAFTSPERSON) [facility] WBC 17.4(H) 3.8 - 9.9 K/cumm Hgb 12.8(L) 13.0 - 17.5 g/dL [facility] Hct 40.4 38.9 - 50.3 % [facility] Plt 174 150 - 400 K/cumm [facility] MPV 12.4(H) 9.1 - 12.3 fL [facility] RBC 4.37 4.30 - 5.80 M/cumm [facility] MCV 92.4 81.3 - 96.4 fL [facility] MCH 29.3 27.1 - 33.3 pg [facility] MCHC 31.7(L) 32.3 - 35.7 g/dL [facility] RDW CV 12.9 11.1 - 14.9 % [facility] RDW SD 44.1 35.7 - 48.1 fL [facility] NRBC abs 0.00 0.00 - 0.01 K/cumm [facility] Blood 09/20/2024 5:58 AM DRAFTSPERSON 09/20/2024 6:35 AM DRAFTSPERSON us Kevin Brody MD LAB BLOOD ORDERABLES Suzie l Result [facility] [address] Department [place] [address] * (ABNORMAL) Tissue aerobic and anaerobic culture and gram stain Tissue Back, lower (09/19/2024 11:08AM DRAFTSPERSON) Direct Specimen Exam Stain: No polymorphonuclear leukocytes seen. No organisms seen. Report Final Report: Very light growth Staphylococcus aureus, methicillin susceptible (.) [facility] Organism STAPHYLOCOCCUS AUREUS, METHICILLIN SUSCEPTIBLE [facility] Tissue (Back, lower) 09/19/2024 11:08 AM DRAFTSPERSON 09/19/2024 12:11 PM DRAFTSPERSON N[facility]ative [facility] - 09/22/2024 9:51 AM DRAFTSPERSON Deep Tissue Organism Antibiotic Method Susceptibility Staphylococcus [...] Susceptible Kevin Brody MD LAB MICROBIOLOGY - [facility] L ORDERABLES Final Result Performing Organization Address [facility] Co de Phone Number [facility] [address] Department [place] [address] * (ABNORMAL) Aerobic and anaerobic culture and gram stain Abscess Back, lower (09/19/2024 11:07 AM DRAFTSPERSON) Direct Specimen Exam Stain: No polymorphonuclear leukocytes seen. No organisms seen. Report Final Report: Light growth of: Staphylococcus aureus, methicillin susceptible Susceptibility reported on this organism on previous culture [id number] (.) [facility] Organism STAPHYLOCOCCUS AUREUS, METHICILLIN SUSCEPTIBLE [facility] Abscess (Back, lower) 09/19/2024 11:07 AM DRAFTSPERSON 09/19/2024 12:25 PM DRAFTSPERSON Narrative [facility] - 09/23/2024 8:55 AM DRAFTSPERSON Deep Kevin Brody MD LAB MICROBIOLOGY - GENERA L ORDERABLES Final Result Performing Organization Address [facility] Co de Phone Number [facility] [address] [place] [address] * (ABNORMAL) Aerobic and anaerobic culture and gram stain Abscess Back, lower (09/19/2024 11:07 AM DRAFTSPERSON) Direct Specimen Exam Stain: Few polymorphonuclear leukocytes seen. Rare Gram Positive Cocci Report Final Report: Moderate growth of: Staphylococcus aureus, methicillin susceptible (.) [facility] Organism STAPHYLOCOCCUS AUREUS, METHICILLIN SUSCEPTIBLE [facility] Abscess (Back, lower) 09/19/2024 11:07 AM DRAFTSPERSON 09/19/2024 12:25 PM DRAFTSPERSON Narrative [facility] - 09/23/2024 8:49 AM DRAFTSPERSON Superficial Organism Antibiotic Method Susceptibility Staphylococcus aureus, [...] L ORDERABLES Final Result Performing Organization Address [facility] Co de Phone Number [facility] [address] Department [place] [address] * MS AN ELECTIVE ENDOTRACHEAL AIRWAY, MS AN PROCEDURE PLACEHOLDER (09/19/2024 10:49 AM DRAFTSPERSON) Narrative Sonia David CRNA - 09/19/2024 10:49 AM DRAFTSPERSON Sonia David CRNA ? 09/19/2024 10:50 AM Airway Patient location: OR Urgency: elective Indications for airway management: anesthesia Difficult airway: no Staff: Placed by: ROOF TILER: Sonia David CRNA Emergent airway documentation: Risks [...] * (ABNORMAL) Differential, auto (09/19/2024 1:19 AM DRAFTSPERSON) Pathologist [facility] Neutrophil abs 13.1(H) 1.5 - 6.5 K/cumm Imm gran abs 0.1 0.0 - 0.1 K/cumm [facility] Lymphocyte abs 1.3 0.8 - 3.3 K/cumm [facility] Monocyte abs 1.3(H) 0.2 - 0.8 K/cumm [facility] Eosinophil abs 0.0 0.0 - 0.5 K/cumm [facility] Basophil abs 0.0 0.0 - 0.1 K/cumm [facility] Neutrophil pct 83.0 % [facility] Comment: Interpretive Data Percent cell count reference ranges are not reported, since discordance with absolute values may lead to misinterpretation of CBC data. Current Interpretive Data was last revised on 2018. Imm gran pct 0.5 % [facility] Comment: Interpretive Data Percent cell count reference ranges are not reported, since discordance with absolute values may lead to misinterpretation of CBC data. Current Interpretive Data was last revised on 2018. Lymphocyte pct 8.0 % [facility] Comment: Interpretive Data Percent cell count reference ranges are not reported, since discordance with absolute values may lead to misinterpretation of CBC data. Current Interpretive Data was last revised on 2018. Monocyte pct 8.3 % [facility] Comment: Interpretive Data Percent cell count reference ranges are not reported, since discordance with absolute values may lead to misinterpretation of CBC data. Current Interpretive Data was last revised on 2018. Eosinophil pct 0.1 % [facility] Comment: Interpretive Data Percent cell count reference ranges are not reported, since discordance with absolute values may lead to misinterpretation of CBC data. Current Interpretive Data was last revised on 2018. Basophil pct 0.1 % [facility] Comment: Interpretive Data Percent cell count reference ranges are not reported, since discordance with absolute values may lead to misinterpretation of CBC data. Current Interpretive Data was last revised on 2018. Blood 09/19/2024 1:19 AM DRAFTSPERSON 09/19/2024 1:19 AM DRAFTSPERSON us Kita Astudillo MD LAB BLOOD ORDERABLES Final Resu lt [facility] [address] [place] [address] * (ABNORMAL) CBC with auto differential (09/19/2024 1:19 AM DRAFTSPERSON) WBC 15.8(H) 3.8 - 9.9 K/cumm Hgb 13.0 13.0 - 17.5 g/dL [facility] Hct 39.4 38.9 - 50.3 % [facility] Plt 150 150 - 400 K/cumm [facility] MPV 12.1 9.1 - 12.3 fL [facility] RBC 4.38 4.30 - 5.80 M/cumm [facility] MCV 90.0 81.3 - 96.4 fL [facility] MCH 29.7 27.1 - 33.3 pg [facility] MCHC 33.0 32.3 - 35.7 g/dL [facility] RDW CV 12.7 11.1 - 14.9 % [facility] RDW SD 42.4 35.7 - 48.1 fL [facility] NRBC abs 0.00 0.00 - 0.01 K/cumm [facility] Blood 09/19/2024 1:19 AM DRAFTSPERSON 09/19/2024 1:19 AM DRAFTSPERSON us Kita Astudillo MD LAB BLOOD ORDERABLES Final Resu lt Performing Organization Address [facility] de Phone Number [facility] [address] [place] [address] * eGFR (09/19/2024 12:55 AM DRAFTSPERSON) eGFR >90 >=60 mL/min/1. 73 m2 Comment: [...] reviewed 2021. Blood 09/19/2024 12:5 5 AM DRAFTSPERSON 09/19/2024 1:19 AM DRAFTSPERSON us Kita Astudillo MD LAB BLOOD ORDERABLES Final Resu lt Performing Organization Address [facility]/ZIP Co de Phone Number [facility] [address] [place] [address] * Blood culture Blood (09/19/2024 12:55 AM DRAFTSPERSON) Report Final Report: No growth Blood 09/19/2024 12:5 5 AM DRAFTSPERSON 09/19/2024 2:14 AM DRAFTSPERSON Narrative [facility] - 09/24/2024 7:01 AM DRAFTSPERSON From a different site than #1. Collection->Peripheral [...] organism identification may be performed using the FRESS Blood Culture Identification panel. This assay detects microbial DNA in a blood culture broth. This assay has been cleared by the [place] Food and Drug Administration and its performance characteristics have been verified by the [facility]. Interpretive data was last revised on October 27, 2022. Kita Astudillo MD LAB MICROBIOLOGY - [facility] Final Result Performing Organization Address [facility]/State/ZIP Co de Phone Number [facility] [address] [place] [address] * Blood culture Blood (09/19/2024 12:55 AM DRAFTSPERSON) Report Final Report: No growth Blood 09/19/2024 12:5 5 AM DRAFTSPERSON 09/19/2024 2:14 AM DRAFTSPERSON Narrative [facility] - 09/24/2024 7:01 AM DRAFTSPERSON Collection->Peripheral Interpretive Data 1. Blood cultures are incubated and monitored continuously for 5 days (120 hours). The first negative report is issued within 24 hours of receipt in the laboratory. 2. All positive cultures are resulted and called to physicians/care providers as soon as they are detected. 3. A rapid molecular test for organism identification may be performed using the FRESS Blood Culture Identification panel. This assay detects microbial DNA in a blood culture broth. This assay has been cleared by the [place] Food and Drug Administration and its performance characteristics have been verified by the [facility]. Interpretive data was last revised on October 27, 2022. Kita Astudillo MD LAB MICROBIOLOGY - GENERAL [facility]ELVIN NEGRON Final Result [facility] [address] [place] [address] * (ABNORMAL) Comprehensive metabolic panel (09/19/2024 12:55 AM DRAFTSPERSON) Sodium 136 135 - 145 mmol/L Potassium, pl 4.1 3.3 - 4.9 mmol/L [facility] Comment:Hemolyzed; potassium value may be falsely elevated by as much as 0.3 - 0.5 mmol/L. Suggest redraw and reanalysis Chloride 98 97 - 110 mmol/L [facility] CO2 26 22 - 32 mmol/L [facility] Anion gap 12 2 - 15 mmol/L [facility] BUN 8 6 - 25 mg/dL [facility] Creatinine 0.70(L) 0.80 - 1.30 mg/dL [facility] Glucose 139 70 - 199 mg/dL [facility] Comment: Interpretive Data Fasting glucose >/= 126 [...] 2022. Calcium 9.1 8.5 - 10.3 mg/dL [facility] Bilirubin, total 0.9 0.1 - 1.2 mg/dL [facility] Protein, pl 6.7 6.5 - 8.5 g/dL [facility] Albumin 3.7 3.5 - 5.0 g/dL [facility] Alk phos 92 40 - 130 Units/L [facility] ALT 18 7 - 55 Units/L [facility] AST 22 10 - 50 Units/L [facility] Comment:Slightly Hemolyzed S pecimen Blood 09/19/2024 12:5 5 AM DRAFTSPERSON 09/19/2024 1:19 AM DRAFTSPERSON us Kita Astudillo MD LAB BLOOD ORDERABLES Final Resu lt Performing Organization Address City/[facility]/ZIP Co de Phone Number [facility] [address] [place] [address] * (ABNORMAL) CBC without differential (08/14/2024 7:13 AM DRAFTSPERSON) WBC 16.5(H) 3.8 - 9.9 K/cumm Hgb 14.5 13.0 - 17.5 g/dL [facility] Hct 43.7 38.9 - 50.3 % [facility] Plt 169 150 - 400 K/cumm [facility] MPV 12.0 9.1 - 12.3 fL [facility] RBC 4.87 4.30 - 5.80 M/cumm [facility] MCV 89.7 81.3 - 96.4 fL [facility] MCH 29.8 27.1 - 33.3 pg [facility] MCHC 33.2 32.3 - 35.7 g/dL [facility] RDW CV 13.3 11.1 - 14.9 % [facility] RDW SD 44.0 35.7 - 48.1 fL [facility] NRBC abs 0.00 0.00 - 0.01 K/cumm [facility] Blood 08/14/2024 7:13 AM DRAFTSPERSON 08/14/2024 7:51 AM DRAFTSPERSON us Kevin Brody MD LAB BLOOD ORDERABLES Suzie l Result Performing Organization Address City/[facility]/ZIP Co de Phone Number [facility] [address] [place] [address] * Surgical pathology (08/13/2024 11:16 AM DRAFTSPERSON) Disc, intervertebral 024 11:16 AM DRAFTSPERSON 08/13/2024 1:53 PM DRAFTSPERSON Narrative 08/14/2024 2:09 PM DRAFTSPERSON [address] ??[address] Tele: ?? Batsheva Ji MD - Wick Tender Note to Patients: This report may contain [...] SURGICAL PATHOLOGY REPORT Patient Name: ??TRAMAINE MARIN JR. Address: ??[address] [place] [id number] Gender: ??M : ??1970 (Age: 53) Service: ??Ortho Location: ??[place] [address], ?? Hospital #: ??[id number] Patient Type: ??[facility] Accession #: ? [id number] Taken: ? 08/13/2024 Received ? 08/13/2024 Reported: [...] x 3.5 x 0.6 cm in aggregate Data Warehouse Manager sections are submitted in cassette labeled A1. ?? [facility] MICROSCOPIC DESCRIPTION: Microscopic examination supports the above captioned diagnosis. This case was signed out at [facility], [address] [place] [id number]. Clerical Data Follows A; [id number] REPORT IMAGES AND/OR SCANNED DOCUMENTS ONLY VIEWABLE IN PDF FORMAT The immunohistochemical test(s) cited in this report, if any, was developed and its performance characteristics determined by [facility] Pathology Department. ??It has not been cleared or approved by the U.S. Food and Drug Administration. ??The FDA has determined that such clearance or approval is not necessary. ??This test is used for clinical purposes. ??It should not be regarded as investigational or for research. ??[facility] is certified under the Clinical [...] part or completely in the following laboratories: [facility], [address] [place] [id number] [place] [address], [address] [place] [address]. us Kevin Brody MD LAB PATHOLOGY ORDERABLES Final Result * FL Fluoroscopy < 1 Hour (08/13/2024 11:08 AM DRAFTSPERSON) Narrative [facility] - 08/13/2024 11:09 AM DRAFTSPERSON The images from this study are not interpreted by Radiology. ??Please refer to the physician's procedure / OR operative note. Kevin Brody MD IM FLUOROSCOPY PROCEDURE S Final Result [facility] * XR Spine Lumbar 2 or 3 Views (08/13/2024 11:08 AM DRAFTSPERSON) Anatomical Region Laterality Modality Spine N/A Computed Radiogr aphy 08/13/2024 11:3 5 AM DRAFTSPERSON Impressions 08/13/2024 11:35 AM DRAFTSPERSON FINDINGS/IMPRESSION: 6 intraoperative fluoroscopic images are submitted for review. Fusion L4-L5 vertebral bodies. Postoperative changes of L3-L5 posterior fusion and decompression with L3-L4 interbody fusion device placement. Hardware is grossly intact. Please refer to the dedicated operative report for complete evaluation of real-time findings. Electronically signed by: Justus Toledo M.D. Narrative 08/13/2024 11:35 AM DRAFTSPERSON EXAM: XR SPINE LUMBAR 2 OR 3 [...] IMG XR PROCEDURES Final R esult * MS AN ELECTIVE ENDOTRACHEAL AIRWAY, MS AN PROCEDURE PLACEHOLDER (08/13/2024 7:59 AM DRAFTSPERSON) Narrative White, Naomi Azalia, ROOF TILER - 08/13/2024 7:59 AM DRAFTSPERSON Naomi Galvan CRNA ? 08/13/2024 ??8:01 AM Airway Patient location: OR Urgency: elective Indications for airway management: anesthesia Difficult airway: no Staff: Supervising provider: Jason Christianson MD Placed by: ROOF TILER: Naomi Galvan CRNA Emergent airway documentation: Risks [...] Result * Check Sample (08/13/2024 6:59 AM DRAFTSPERSON) ABO Rh O Positive [facility] OTHER 08/13/2024 6:59 AM DRAFTSPERSON 08/13/2024 7:23 AM DRAFTSPERSON us Ara Robbins ADHESION TESTER LAB BLOOD ORDERABLES Fi nal Result [facility] [address] Department [place] [address] [facility] * POCT lipid panel (07/30/2024 10:33 AM DRAFTSPERSON) Cholesterol, POC 186 mg/dL HDL, POC 28 mg/dL Triglycerides, POC 215 mg/dL LDL Cholesterol POC 115 mg/dL Chol/HDL Ratio, POC 6.7 Non-HDL Cholesterol, POC 158 mg/dL Cholesterol Total, POC 186 mg/dL Capillary blood 07/30/2024 1 0:33 AM DRAFTSPERSON us Hunter Smith MD POINT OF CARE TEST ORDERABLES Fi nal Result * ECG 12 lead (07/30/2024 10:22 AM DRAFTSPERSON) us Hunter Smith MD ECG ORDERABLES Edited Result - Final * Differential, auto (07/23/2024 10:10 AM CDT) Pathologist [facility] Neutrophil abs 5.6 1.5 - 6.5 K/cumm Imm gran abs 0.0 0.0 - 0.1 K/cumm [facility] Lymphocyte abs 2.1 0.8 - 3.3 K/cumm [facility] Monocyte abs 0.7 0.2 - 0.8 K/cumm [facility] Eosinophil abs 0.2 0.0 - 0.5 K/cumm [facility] Basophil abs 0.0 0.0 - 0.1 K/cumm [facility] Neutrophil pct 64.7 % [facility] Comment: Interpretive Data Percent cell count reference ranges are not reported, since discordance with absolute values may lead to misinterpretation of CBC data. Current Interpretive Data was last revised on 2018. Imm gran pct 0.2 % [facility] Comment: Interpretive Data Percent cell count reference ranges are not reported, since discordance with absolute values may lead to misinterpretation of CBC data. Current Interpretive Data was last revised on 2018. Lymphocyte pct 24.8 % [facility] Comment: Interpretive Data Percent cell count reference ranges are not reported, since discordance with absolute values may lead to misinterpretation of CBC data. Current Interpretive Data was last revised on 2018. Monocyte pct 8.1 % [facility] Comment: Interpretive Data Percent cell count reference ranges are not reported, since discordance with absolute values may lead to misinterpretation of CBC data. Current Interpretive Data was last revised on 2018. Eosinophil pct 1.7 % [facility] Comment: Interpretive Data Percent cell count reference ranges are not reported, since discordance with absolute values may lead to misinterpretation of CBC data. Current Interpretive Data was last revised on 2018. Basophil pct 0.5 % [facility] Comment: Interpretive Data Percent cell count reference ranges are not reported, since discordance with absolute values may lead to misinterpretation of CBC data. Current Interpretive Data was last revised on 2018. Blood 07/23/2024 10:1 0 AM CDT 07/23/2024 10:10 AM CDT Ara Robbins NP LAB BLOOD ORDERABLES Fi nal Result [facility] [address] [place] [address] * CBC with auto differential (07/23/2024 10:10 AM CDT) WBC 8.6 3.8 - 9.9 K/cumm Hgb 15.7 13.0 - 17.5 g/dL [facility] Hct 47.5 38.9 - 50.3 % [facility] Plt 184 150 - 400 K/cumm [facility] MPV 11.6 9.1 - 12.3 fL [facility] RBC 5.27 4.30 - 5.80 M/cumm [facility] MCV 90.1 81.3 - 96.4 fL [facility] MCH 29.8 27.1 - 33.3 pg [facility] MCHC 33.1 32.3 - 35.7 g/dL [facility] RDW CV 12.9 11.1 - 14.9 % [facility] RDW SD 42.5 35.7 - 48.1 fL [facility] NRBC abs 0.00 0.00 - 0.01 K/cumm [facility] Blood 07/23/2024 10:1 0 AM CDT 07/23/2024 10:10 AM CDT Ara Robbins ADHESION TESTER LAB BLOOD ORDERABLES Fi nal Result Performing Organization Address City/[facility] Co de Phone Number [facility] [address] [facility] [place] [place] [address] * Vitamin D 25 hydroxy (07/23/2024 10:10 AM CDT) Pathologist [facility] Vitamin D 25-OH 38 30 - 80 ng/mL Blood 07/23/2024 10:1 0 AM CDT 07/23/2024 10:10 AM CDT Ara Robbins ADHESION TESTER LAB BLOOD ORDERABLES Fi nal Result Performing Organization Address [facility] de Phone Number [facility] [address] [employer] [place] [place] [address] * (ABNORMAL) Hemoglobin A1c (07/23/2024 10:10 AM CDT) [facility] Hgb A1C 5.7(H) 4.0 - 5.6 % Estimated Average Glucose 117 mg/dL [facility] Comment: The ADA recommends reporting an estimated Average Glucose (eAG) with all Hemoglobin A1c results using the equation derived from a study of 507 normal and diabetic adults. ??Minority populations were underrepresented and children were not included. ?? (Diabetes Care 31:0222-7805, 2008). ??The eAG is not equivalent to a fasting glucose. Blood 07/23/2024 10:1 0 AM CDT 07/23/2024 10:10 AM CDT Ara Robbins ADHESION TESTER LAB BLOOD ORDERABLES Fi nal Result Performing Organization Address [facility] Co de Phone Number [facility] [address] [facility] [employer] [place], [place] [id number] * Type and screen (07/23/2024 9:54 AM CDT) Pathologist [facility] [place], indirect Negative ABO Rh O Positive [facility] Blood 07/23/2024 9:54 AM CDT 07/23/2024 10:24 AM CDT Narrative [facility] - 07/23/2024 11:28 AM CDT Is this test being ordered in advance for a procedure?->Yes Expected date of procedure:->08/13/24 Has the patient been transfused in the past 3 months?->No Ara Robbins NP LAB BLOOD BANK TEST ORD ERABLES Final Result [facility] [address] [place] [address] from Last 3 Months [facility] [place] Advance Directives For more information, please contact: [phone] * Full Code (Latest Code Status on File) Date Activated Date Inactivated Comments 09/19/2024 12:47 PM * Full Code Date Activated Date Inactivated Comments 09/18/2024 8:09 PM 09/19/2024 12:47 PM * Full Code Date Activated Date Inactivated Comments 08/13/2024 2:58 PM 08/14/2024 4:58 PM Care Teams Jewelry Consultant Relationship Specialty Start Date End Date Elton De La Fuente MD PCP - General Family Medicine 06/02/21
--- OUTSIDE RECORDS SUMMARY | 2024-09-25 08:41 | XMS_ITS | Encounter Summary ---
Author Organization 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 Batsheva Ji MD - Marble Coper Note to Patients: This report may contain [...] REPORT Patient Name: ??TRAMAINE MARINChristopher Christopher Address: ??[address] [place] [id number] Gender: ??M : ??1970 (Age: 53) Service: ??Ortho Location: ??[id number], ?? Hospital #: ??[id number] Patient Type: ??MBC OP IN BED Accession #: ? [id number] Taken: ? 08/13/2024 Received ? 08/13/2024 Reported: [...] x 3.5 x 0.6 cm in aggregate Cylinder Die Machine Operator sections are submitted in cassette labeled A1. ?? [facility] MICROSCOPIC DESCRIPTION: Microscopic examination supports the above captioned diagnosis. This case was signed out at [facility], [address] [place] [address]. Clerical Data Follows A; [id number] REPORT IMAGES AND/OR SCANNED DOCUMENTS ONLY VIEWABLE IN PDF FORMAT The immunohistochemical test(s) cited in this report, if any, was developed and its performance characteristics determined by [facility] Pathology Department. ??It has not been cleared or approved by the U.S. Food and Drug Administration. ??The FDA has determined that such clearance or approval is not necessary. ??This test is used for clinical purposes. ??It should not be regarded as investigational or for research. ??[facility] Laboratory is certified under the [...] part or completely in the following laboratories: [facility], [address] [place] [id number] [place] [address], [address] [place] [address]. Kevin Brody MD LAB PATHOLOGY ORDERABLES Final Result documented in this encounter Visit Diagnoses Not on filedocumented in this encounter Care Teams Beauty Operator Apprentice Relationship Specialty Start Date End Date Elton De La Fuente MD PCP - General Family Medicine 06/02/21 documented as of this encounter
--- OUTSIDE RECORDS SUMMARY | 2024-09-25 08:41 | XMS_ITS | Encounter Summary ---
Author Organization [facility] Healthcare Address [address] [place] [address] Care Team Providers Care Concrete Stone Fabricator Name Role Phone Elton De La Fuente MD Primary Care Provider [phone] Encounter Details Date Type Department Care Team (Late st Contact Info) Description 09/17/2024 Patient Self-Triage [facility] HealthCare/ Physicians [facility] [place] [address] Tony, [facility] Provider [address] [place], [place] [id number] Social History Tobacco Use Types Packs/Day Years [...] on file Legal Sex Male 6:34 PM AIR BREAKER OPERATOR Gender Identity Not on file Sexual Orientation Not on file 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
--- OUTSIDE RECORDS SUMMARY | 2024-09-25 08:41 | XMS_ITS | Clinical Summary ---
Author Organization [facility] Address [address] [place] [address] Care Team Providers Care Cerner Analyst Name Role Phone Elton De La Fuente MD Primary Care Provider [phone] Allergies Active Allergy Reactions Criticality Noted Date Comments Pseudoephedrine Other (See comments) Low 06/02/2021 [facility] Medications oxyCODONE-acetamin ophen (PERCOCET) 5-325 [...] Department Care Team Description 09/19/2024 10:31 AM INSURANCE SALESPERSON Anesthesia Event [facility] Operating Room [address] [place] [phone] Stephenie Rodriguez DO Tynes, Jessika Olegovna, CRNA 09/19/2024 10:03 AM INSURANCE SALESPERSON - 09/19/2024 12:08 PM INSURANCE SALESPERSON Surgery [facility] Operating Room [address] [place] [phone] Kevin Brody MD INCISION AND DRAINAGE - LUMBAR 09/18/2024 7:53 PM INSURANCE SALESPERSON - Present Hospital Encounter [facility] [address] [place] [phone] Kita Astudillo MD Willis, MD Enoc Schroeder, Jovany Weeks MD Wound infection (Primary Dx); Cellulitis of other specified site 09/18/2024 Orders Only [address] [phone] Kita Astudillo MD 09/17/2024 Patient Self-Triage [facility] [address] [place] [address] Manuelitot, Generic Provider 08/13/2024 7:30 AM INSURANCE SALESPERSON - 08/13/2024 12:30 PM INSURANCE SALESPERSON Surgery [facility] Operating Room [address] [place] [phone] Kevin Brody MD L3-5 Decompressive Laminectomy, Posterior Lumbar Interbody Fusion using Zavation EZ Span Cage, Mathew Screws, Local Autograph and L4-5 Repeat Discectomy 08/13/2024 7:26 AM INSURANCE SALESPERSON Anesthesia Event [facility] Operating Room [address] [place] [phone] Jason Christianson MD Salameh, Besan Mohammed, PA 08/13/2024 5:41 AM INSURANCE SALESPERSON - 08/14/2024 12:58 PM INSURANCE SALESPERSON Hospital Encounter [address] [phone] Kevin Brody MD Pseudoclaudication syndrome Discharge Disposition: Discharge to home or self care 08/13/2024 Orders Only [facility] Operating Room [address] [place] [phone] Kevin Brody MD 07/30/2024 10:15 AM INSURANCE SALESPERSON Office Visit [facility] Medical [facility] Cardiology [address] [place] [address] [place] [phone] Hunter Smith MD Preop cardiovascular exam (Primary Dx); Tobacco abuse; Lipid screening 07/23/2024 8:45 AM CDT Pre-Admission Testing [facility] Pre Anesthesia Testing [address] [place] [phone] Preoperative testing (Primary Dx) 07/23/2024 Telephone [facility] Anesthesia [address] [place] [phone] Ara Robbins NP from Last 3 [...] 0.6 oz pur e alcohol) Recovering alcoholic-whiskey [employer] Utilities Answer Date Recorded In the past 12 months has [email or web address], oil, or water [employer] threatened to shut off services in your [...] How often do you attend chur or congregational services? Never 09/19/2024 Do you belong to any clubs o r organizations such as temple groups, unions, fraternal or athletic groups, or [...] any time in the past 12 m [facility], were you homeless or living in a [facility]p (including now)? No 09/19/2024 Personal Safety Answer Date Recorded Have you ever been in or are you currently in a harmful physical or emotional relationship or is someone making you feel afraid or unsafe? 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 Not on file Not on file Obstetrics History Last Filed Vital Signs Vital Sign Reading Time Taken Comments Blood Pressure 127/83 09/25/2024 8:00 AM INSURANCE SALESPERSON Pulse 87 09/25/2024 8:00 AM INSURANCE SALESPERSON Temperature 36.6 ??C (97.8 ??F) 09/25/2024 8:00 AM CS T Respiratory Rate 16 09/25/2024 8:00 AM INSURANCE SALESPERSON Oxygen Saturation 100% 09/25/2024 8:00 AM INSURANCE SALESPERSON Inhaled Oxygen Concentration - - Weight 84.4 kg (186 lb) 09/19/2024 9:40 AM INSURANCE SALESPERSON Height 182.9 cm (6') 09/19/2024 9:40 AM INSURANCE SALESPERSON Body Mass Index 25.23 09/19/2024 9:40 AM INSURANCE SALESPERSON Plan of Treatment Health Maintenance Due Date [...] Completed 09/21/2024 Medical Devices Implanted Type Area Bindery Helper Device Identifier Shelf Expiration Date Model / Serial / Lot Biocomposites Stimulan Rapid Cure Kit Paste Manager Water 5cc 12.5cc Bone Void 620-005 - [id number] Implanted:Qty: 1 on 08/13/2024 by Kevin Brody MD at [facility] N/A: Spine Lumbar Biocomposites [id number] 04/24/2027 620-005 / / [id number] [employer] Cage Spinal Lumbar 10 Degree Tlif Expandable 7-11.5mm Titanium [id number] - [id number] Implanted:Qty: 2 on 08/13/2024 by Kevin Brody MD at [facility] N/A: Spine Lumbar [employer] [id number] / / Amina Spine 4.5mm 35mm Polyaxial Spine Screw Bone Deformity [id number] - [id number] Implanted:Qty: 6 on 08/13/2024 by Kevin Brody MD at [facility] N/A: Spine Lumbar Amina Spine [id number] 5 / / Amina Spine 4.5mm 75mm Contour Ulises Spinal Cocr [id number] - [id number] Implanted:Qty: 2 on 08/13/2024 by Kevin Brody MD at [facility] N/A: Spine Lumbar Lawrence Spine [id number] 5 / / Lawrence Spine 26mm Semiadjustable Transverse Spine Connector Ulises Posterior [id number] - [id number] Implanted:Qty: 1 on 08/13/2024 by Kevin Brody MD at [facility] N/A: Spine Lumbar Lawrence Spine [id number] [id number] / / Amina Spine 32mm Semiadjustable Transverse Spine Connector Ulises Posterior [id number] - [id number] Implanted:Qty: 1 on 08/13/2024 by Kevin Brody MD at [facility] N/A: Spine Lumbar Lawrence Spine [id number] 2A / / Procedures * The patient is currently admitted. The information in this section might not be complete until the patient is discharged. Procedure Name Priority Date/Time Associated Diagnosis Comments EGFR Routine 09/25/2024 5:49 AM INSURANCE SALESPERSON RENAL FUNCTION PANEL Routine 09/25/2024 5:49 AM INSURANCE SALESPERSON EGFR Routine 09/24/2024 7:50 AM INSURANCE SALESPERSON RENAL FUNCTION PANEL Routine 09/24/2024 7:50 AM INSURANCE SALESPERSON CBC WITHOUT DIFFERENTIAL Routine 09/24/2024 7:50 AM INSURANCE SALESPERSON DRUGS OF ABUSE SCREEN, URINE WITHOUT CONFIRMATION Routine 09/23/2024 6:26 PM INSURANCE SALESPERSON EGFR Routine 09/23/2024 6:17 AM INSURANCE SALESPERSON RENAL FUNCTION PANEL Routine 09/23/2024 6:17 AM INSURANCE SALESPERSON CBC WITHOUT DIFFERENTIAL Routine 09/23/2024 6:17 AM INSURANCE SALESPERSON XR CHEST 1 VIEW ED Urgent/IP Urgent 09/22/2024 12:05 PM INSURANCE SALESPERSON OK INSJ NON-TUNNELED CENTRAL VENOUS CATH AGE 5 YR/> Routine 09/22/2024 11:15 AM INSURANCE SALESPERSON Wound infection EGFR Routine 09/22/2024 8:12 AM INSURANCE SALESPERSON RENAL FUNCTION PANEL Routine 09/22/2024 8:12 AM INSURANCE SALESPERSON CBC WITHOUT DIFFERENTIAL Routine 09/22/2024 8:12 AM INSURANCE SALESPERSON EGFR Routine 09/21/2024 6:09 AM INSURANCE SALESPERSON RENAL FUNCTION PANEL Routine 09/21/2024 6:09 AM INSURANCE SALESPERSON CBC WITHOUT DIFFERENTIAL Routine 09/21/2024 6:09 AM INSURANCE SALESPERSON VANCOMYCIN LEVEL TROUGH Timed 09/20/2024 5:36 PM INSURANCE SALESPERSON CBC WITHOUT DIFFERENTIAL Routine 09/20/2024 5:58 AM INSURANCE SALESPERSON MYCOLOGY (FUNGAL) CULTURE Routine 09/19/2024 11:08 AM INSURANCE SALESPERSON TISSUE AEROBIC AND ANAEROBIC CULTURE AND GRAM STAIN Routine 09/19/2024 11:08 AM INSURANCE SALESPERSON MYCOLOGY (FUNGAL) CULTURE Routine 09/19/2024 11:07 AM INSURANCE SALESPERSON AEROBIC AND ANAEROBIC CULTURE AND GRAM STAIN Routine 09/19/2024 11:07 AM INSURANCE SALESPERSON MYCOLOGY (FUNGAL) CULTURE Routine 09/19/2024 11:07 AM INSURANCE SALESPERSON AEROBIC AND ANAEROBIC CULTURE AND GRAM STAIN Routine 09/19/2024 11:07 AM INSURANCE SALESPERSON OK AN PROCEDURE PLACEHOLDER Routine 09/19/2024 10:49 AM INSURANCE SALESPERSON OK AN ELECTIVE ENDOTRACHEAL AIRWAY Routine 09/19/2024 10:49 AM INSURANCE SALESPERSON INCISION AND DRAINAGE - BACK 09/19/2024 10:30 AM INSURANCE SALESPERSON LUMBAR WOUND INFECTION DIFFERENTIAL AUTO Routine 09/19/2024 1:1 9 AM INSURANCE SALESPERSON CBC WITH AUTO DIFFERENTIAL Routine 09/19/2024 1:19 AM INSURANCE SALESPERSON EGFR Routine 09/19/2024 12:55 AM INSURANCE SALESPERSON COMPREHENSIVE METABOLIC PANEL Routine 09/19/2024 12:55 AM INSURANCE SALESPERSON BLOOD CULTURE Routine 09/19/2024 12:55 AM INSURANCE SALESPERSON BLOOD CULTURE Routine 09/19/2024 12:55 AM INSURANCE SALESPERSON CBC WITHOUT DIFFERENTIAL Routine 08/14/2024 7:13 AM INSURANCE SALESPERSON SURGICAL PATHOLOGY Routine 08/13/2024 11:16 AM INSURANCE SALESPERSON FL FLUOROSCOPY < 1 HOUR IP Routine 08/13/2024 11:08 AM INSURANCE SALESPERSON XR SPINE LUMBAR 2 OR 3 VIEWS IP Routine 08/13/2024 11:08 AM INSURANCE SALESPERSON OK AN PROCEDURE PLACEHOLDER Routine 08/13/2024 7:59 AM INSURANCE SALESPERSON OK AN ELECTIVE ENDOTRACHEAL AIRWAY Routine 08/13/2024 7:59 AM INSURANCE SALESPERSON FUSION LUMBAR - POSTERIOR 2 LEVELS 08/13/2024 7:30 AM INSURANCE SALESPERSON Pseudoclaudication syndrome B CHECK SAMPLE STAT 08/13/2024 6:59 AM INSURANCE SALESPERSON POCT LIPID PANEL Routine 07/30/2024 10:33 AM INSURANCE SALESPERSON Lipid screening ECG 12-LEAD Routine 07/30/2024 10:22 AM INSURANCE SALESPERSON Preop cardiovascular exam DIFFERENTIAL AUTO Routine 07/23/2024 10:10 AM CDT Preoperative testing CBC WITH AUTO DIFFERENTIAL Routine 07/23/2024 10:10 AM CDT Preoperative testing HEMOGLOBIN A1C Routine 07/23/2024 10:10 AM CDT Preoperative testing VITAMIN D 25 HYDROXY Routine 07/23/2024 10:10 AM CDT Preoperative testing TYPE AND SCREEN Routine 07/23/2024 9:54 AM CDT Preoperative testing from Last 3 Months Results * eGFR (09/25/2024 5:49 AM INSURANCE SALESPERSON) eGFR >90 >=60 mL/min/1. 73 m2 Comment: [...] last reviewed 2021. Blood 09/25/2024 5:49 AM INSURANCE SALESPERSON 09/25/2024 6:01 AM INSURANCE SALESPERSON us Mitchell Grajeda MD LAB BLOOD ORDERABLES Final R esult [facility] [address] Department [place] [address] * (ABNORMAL) Renal function panel (09/25/2024 5:49 AM INSURANCE SALESPERSON) [facility] Sodium 142 135 - 145 mmol/L Potassium, pl 3.9 3.3 - 4.9 mmol/L [facility] Chloride 103 97 - 110 mmol/L [facility] CO2 29 22 - 32 mmol/L [facility] Anion gap 10 2 - 15 mmol/L [facility] BUN 10 6 - 25 mg/dL [facility] Creatinine 0.70(L) 0.80 - 1.30 mg/dL [facility] Glucose 88 70 - 199 mg/dL [facility] Comment: Interpretive Data Fasting glucose [...] 2022. Calcium 8.8 8.5 - 10.3 mg/dL [facility] Phosphorus, pl 4.1 2.3 - 4.5 mg/dL [facility] Albumin 3.7 3.5 - 5.0 g/dL [facility] Blood 09/25/2024 5:49 AM INSURANCE SALESPERSON 09/25/2024 6:01 AM INSURANCE SALESPERSON Mitchell Grajeda MD LAB BLOOD ORDERABLES Final R esult [facility] [address] Department [place] [address] * eGFR (09/24/2024 7:50 AM INSURANCE SALESPERSON) [facility] eGFR >90 >=60 mL/min/1. 73 m2 Comment: [...] last reviewed 2021. Blood 09/24/2024 7:50 AM INSURANCE SALESPERSON 09/24/2024 8:09 AM INSURANCE SALESPERSON us Mitchell Grajeda MD LAB BLOOD ORDERABLES Final R esult [facility] [address] Department [place] [address] * (ABNORMAL) CBC without differential (09/24/2024 7:50 AM INSURANCE SALESPERSON) WBC 11.4(H) 3.8 - 9.9 K/cumm Hgb 13.0 13.0 - 17.5 g/dL [facility] Hct 40.2 38.9 - 50.3 % [facility] Plt 280 150 - 400 K/cumm [facility] MPV 10.8 9.1 - 12.3 fL [facility] RBC 4.40 4.30 - 5.80 M/cumm [facility] MCV 91.4 81.3 - 96.4 fL [facility] MCH 29.5 27.1 - 33.3 pg [facility] MCHC 32.3 32.3 - 35.7 g/dL [facility] RDW CV 13.0 11.1 - 14.9 % [facility] RDW SD 43.6 35.7 - 48.1 fL [facility] NRBC abs 0.00 0.00 - 0.01 K/cumm [facility] Blood 09/24/2024 7:50 AM INSURANCE SALESPERSON 09/24/2024 8:10 AM INSURANCE SALESPERSON us Kevin Brody MD LAB BLOOD ORDERABLES Suzie l Result [facility] [address] Department [place] [address] * (ABNORMAL) Renal function panel (09/24/2024 7:50 AM INSURANCE SALESPERSON) Sodium 141 135 - 145 mmol/L Potassium, pl 4.0 3.3 - 4.9 mmol/L [facility] Chloride 101 97 - 110 mmol/L [facility] CO2 28 22 - 32 mmol/L [facility] Anion gap 12 2 - 15 mmol/L [facility] BUN 13 6 - 25 mg/dL [facility] Creatinine 0.75(L) 0.80 - 1.30 mg/dL [facility] Glucose 154 70 - 199 mg/dL [facility] Comment: Interpretive Data Fasting glucose [...] 2022. Calcium 9.0 8.5 - 10.3 mg/dL [facility] Phosphorus, pl 3.7 2.3 - 4.5 mg/dL [facility] Albumin 3.9 3.5 - 5.0 g/dL [facility] Blood 09/24/2024 7:50 AM INSURANCE SALESPERSON 09/24/2024 8:09 AM INSURANCE SALESPERSON us Mitchell Grajeda MD LAB BLOOD ORDERABLES Final R esult [facility] [address] Department [place] [address] * (ABNORMAL) Drugs of Abuse Screen, Urine without Confirmation (09/23/2024 6:26 PM INSURANCE SALESPERSON) Amphetamine, ur Not Detected CutOff 500ng/mL Comment: Interpretive Data - Amphetamines: ??Samples containing greater than 500 ng/mL d-methamphetamine ??or other cross-reacting amphetamine compounds are reported as positive. ??Amphetamine immunoassays are subject to significant false positive rates due to cross-reactivity of non-amphetamine drugs. Confirmatory testing required for definitive results. Current Interpretive Data was last reviewed 2023. Barbiturates, ur Not Detected CutOff 200ng/mL [facility] Comment: Interpretive Data - Barbiturates: ??Samples containing greater than 200 ng/mL secobarbital or other cross-reacting barbiturate compounds are reported as positive. ??False positive and false negative results are possible. Confirmatory testing required for definitive results. Current Interpretive Data was last reviewed 2023. Benzodiazepines, ur Screen Positive, presumptive (A) CutOff 100ng/mL [facility] Comment: Interpretive Data - Benzodiazepines: ??Samples containing greater than 100 ng/mL nordiazepam or other cross-reacting compounds are reported as positive. False positive and false negative results are possible. Confirmatory testing required for definitive results. Current Interpretive Data was last reviewed 2023. Cannabinoids, ur Not Detected CutOff 50 ng/mL [facility] Comment: Interpretive Data - Cannabinoids: ??Samples containing greater than 50 ng/mL delta-9 THC -COOH or other cross-reacting compounds are reported as positive. ??False positive and false negative results are possible. ??Confirmatory testing required for definitive results. Current Interpretive Data was last reviewed 2023. Cocaine, ur Not Detected CutOff 150ng/mL [facility] Comment: Interpretive Data - Cocaine: ??Samples containing greater than 150 ng/mL benzoylecgonine or other cross-reacting compounds are reported as positive. False positive and false negative results are possible. Confirmatory testing required for definitive results. Current Interpretive Data was last reviewed 2023. Fentanyl, Ur Not Detected CutOff 5 ng/mL [facility] Comment: Interpretive Data - Fentanyl: ?? Samples containing greater than 5 ng/mL norfentanyl, fentanyl, or other cross-reacting fentanyl compounds are reported as positive. False positive and false negative results are possible. Confirmatory testing required for definitive results. Current Interpretive Data was last reviewed 2023. Methadone, ur Not Detected CutOff 300ng/mL [facility] Comment: Interpretive Data - Methadone: ??Samples containing greater than 300 ng/mL d,l-methadone or other cross-reacting compounds are reported as positive. ??False positive and false negative results are possible. Confirmatory testing required for definitive results. Current Interpretive Data was last reviewed 2023. Opiates, ur Not Detected CutOff 300ng/mL [facility] Comment: Interpretive Data - Opiates: ??Samples containing greater than 300 ng/mL morphine or other cross-reacting compounds are reported as positive. ??False positive and false negative results are possible. Confirmatory testing required for definitive results. Current Interpretive Data was last reviewed 2023. Oxycodone, ur Screen Positive, presumptive (A) CutOff 100ng/mL [facility] Comment: Interpretive Data - Oxycodone: ??Samples containing greater than 100 ng/mL oxycodone or other cross-reacting compounds are reported as ??positive. ??False positive and false negative results are possible. Confirmatory testing required for definitive results. Current Interpretive Data was last reviewed 2023. Phencyclidine, ur Not Detected CutOff 25 ng/mL [facility] Comment: Interpretive Data - Phencyclidine: ??Samples containing greater than 25 ng/mL phencyclidine or other cross-reacting compounds are reported as positive. ??False positive and false negative results are possible. Confirmatory testing required for definitive results. Current Interpretive Data was last reviewed 2023. Urine Creatinine 87 mg/dL [facility] Comment: Interpretive Data Urine Creatinine: < 10 mg/dL is extremely dilute = or > 10 but < 20 mg/dL is dilute = or > 20 mg/dL is normal Current Interpretive Data was last revised on 2017. Urine 09/23/2024 6:26 PM INSURANCE SALESPERSON 09/23/2024 6:33 PM INSURANCE SALESPERSON Narrative [facility] - 09/23/2024 7:11 PM INSURANCE SALESPERSON Drug of Abuse screening is performed by immunoassay for medical purposes only. ??This is not to be used for Pain Management purposes. us Jovany Stubbs MD LAB URINE ORDERABLES Final Result [facility] [address] Department [place] [address] * eGFR (09/23/2024 6:17 AM INSURANCE SALESPERSON) eGFR >90 >=60 mL/min/1. 73 m2 Comment: [...] last reviewed 2021. Blood 09/23/2024 6:17 AM INSURANCE SALESPERSON 09/23/2024 6:34 AM INSURANCE SALESPERSON us Mitchell Grajeda MD LAB BLOOD ORDERABLES Final R esult Performing Organization Address [facility] Co de Phone Number [facility] [address] [place] [address] * (ABNORMAL) CBC without differential (09/23/2024 6:17 AM INSURANCE SALESPERSON) WBC 8.7 3.8 - 9.9 K/cumm Hgb 12.7(L) 13.0 - 17.5 g/dL [facility] Hct 39.6 38.9 - 50.3 % [facility] Plt 244 150 - 400 K/cumm [facility] MPV 10.9 9.1 - 12.3 fL [facility] RBC 4.30 4.30 - 5.80 M/cumm [facility] MCV 92.1 81.3 - 96.4 fL [facility] MCH 29.5 27.1 - 33.3 pg [facility] MCHC 32.1(L) 32.3 - 35.7 g/dL [facility] RDW CV 13.0 11.1 - 14.9 % [facility] RDW SD 43.8 35.7 - 48.1 fL [facility] NRBC abs 0.00 0.00 - 0.01 K/cumm [facility] Blood 09/23/2024 6:17 AM INSURANCE SALESPERSON 09/23/2024 6:34 AM INSURANCE SALESPERSON us Kevin Brody MD LAB BLOOD ORDERABLES Suzie l Result Performing Organization Address [facility]/ZIP Co de Phone Number [facility] [address] [employer] [place], [place] [id number] * (ABNORMAL) Renal function panel (09/23/2024 6:17 AM INSURANCE SALESPERSON) Pathologist [facility] Sodium 141 135 - 145 mmol/L Potassium, pl 4.1 3.3 - 4.9 mmol/L [facility] Chloride 100 97 - 110 mmol/L [facility] CO2 30 22 - 32 mmol/L [facility] Anion gap 11 2 - 15 mmol/L [facility] BUN 10 6 - 25 mg/dL [facility] Creatinine 0.72(L) 0.80 - 1.30 mg/dL [facility] Glucose 95 70 - 199 mg/dL [facility] Comment: Interpretive Data Fasting glucose [...] 2022. Calcium 8.7 8.5 - 10.3 mg/dL [facility] Phosphorus, pl 3.9 2.3 - 4.5 mg/dL [facility] Albumin 3.5 3.5 - 5.0 g/dL [facility] Blood 09/23/2024 6:17 AM INSURANCE SALESPERSON 09/23/2024 6:34 AM INSURANCE SALESPERSON us Mitchell Grajeda MD LAB BLOOD ORDERABLES Final R esult [facility] [address] Department [place] [address] * X-ray chest 1 view (Portable) (09/22/2024 12:05 PM INSURANCE SALESPERSON) Anatomical Region Laterality Modality Body, Chest N/A Computed Radiogr aphy 09/22/2024 12:4 0 PM INSURANCE SALESPERSON Impressions 09/22/2024 12:40 PM INSURANCE SALESPERSON Left upper extremity PICC tip in the mid SVC. Electronically signed by: Akil Cerda D.O. Narrative 09/22/2024 12:40 PM INSURANCE SALESPERSON EXAMINATION: XR CHEST 1 VIEW HISTORY: check [...] IMG XR PROCEDURES Fi nal Result * OK INSJ NON-TUNNELED CENTRAL VENOUS CATH AGE 5 YR/> (09/22/2024 11:15 AM INSURANCE SALESPERSON) Narrative Sue Steinberg PA - 09/22/2024 11:15 AM INSURANCE SALESPERSON Sue Steinberg PA ? 09/22/2024 11:46 AM PICC Line Insertion Date/Time: 09/22/2024 11:15 AM Performed by: Sue Steinberg PA Authorized by: Sue Steinberg PA ?? Gladys Protocol: RN Notified of Procedure: yes ?? Informed consent: ??Risks, benefits, alternatives discussed and patient/instruments sales representative/guardian agrees and accepts Patient's stated [...] Final Result * eGFR (09/22/2024 8:12 AM INSURANCE SALESPERSON) eGFR >90 >=60 mL/min/1. 73 m2 Comment: [...] last reviewed 2021. Blood 09/22/2024 8:12 AM INSURANCE SALESPERSON 09/22/2024 8:51 AM INSURANCE SALESPERSON us Mitchell Grajeda MD LAB BLOOD ORDERABLES Final R esult [facility] [address] [place] [address] * CBC without differential (09/22/2024 8:12 AM INSURANCE SALESPERSON) WBC 8.5 3.8 - 9.9 K/cumm Hgb 13.6 13.0 - 17.5 g/dL [facility] Hct 41.9 38.9 - 50.3 % [facility] Plt 241 150 - 400 K/cumm [facility] MPV 11.4 9.1 - 12.3 fL [facility] RBC 4.59 4.30 - 5.80 M/cumm [facility] MCV 91.3 81.3 - 96.4 fL [facility] MCH 29.6 27.1 - 33.3 pg [facility] MCHC 32.5 32.3 - 35.7 g/dL [facility] RDW CV 13.0 11.1 - 14.9 % [facility] RDW SD 43.8 35.7 - 48.1 fL [facility] NRBC abs 0.00 0.00 - 0.01 K/cumm [facility] Blood 09/22/2024 8:12 AM INSURANCE SALESPERSON 09/22/2024 8:52 AM INSURANCE SALESPERSON us Kevin Brody MD LAB BLOOD ORDERABLES Suzie l Result Performing Organization Address City/[facility]/ZIP Co de Phone Number [facility] [address] [place] [address] * (ABNORMAL) Renal function panel (09/22/2024 8:12 AM INSURANCE SALESPERSON) Pathologist [facility] Sodium 143 135 - 145 mmol/L Potassium, pl 3.7 3.3 - 4.9 mmol/L [facility] Chloride 100 97 - 110 mmol/L [facility] CO2 31 22 - 32 mmol/L [facility] Anion gap 12 2 - 15 mmol/L [facility] BUN 9 6 - 25 mg/dL [facility] Creatinine 0.77(L) 0.80 - 1.30 mg/dL [facility] Glucose 144 70 - 199 mg/dL [facility] Comment: Interpretive Data Fasting glucose [...] 2022. Calcium 9.3 8.5 - 10.3 mg/dL [facility] Phosphorus, pl 4.6(H) 2.3 - 4.5 mg/dL [facility] Albumin 4.1 3.5 - 5.0 g/dL [facility] Blood 09/22/2024 8:12 AM INSURANCE SALESPERSON 09/22/2024 8:51 AM INSURANCE SALESPERSON us Mitchell Grajeda MD LAB BLOOD ORDERABLES Final R esult Performing Organization Address City/[facility]/ZIP Co de Phone Number [facility] [address] Department [employer] [facility] [place], [place] [id number] * eGFR (09/21/2024 6:09 AM INSURANCE SALESPERSON) Pathologist [facility] eGFR >90 >=60 mL/min/1. 73 m2 Comment: [...] last reviewed 2021. Blood 09/21/2024 6:09 AM INSURANCE SALESPERSON 09/21/2024 7:01 AM INSURANCE SALESPERSON us Mitchell Grajeda MD LAB BLOOD ORDERABLES Final R esult [facility] [address] [place] [address] * (ABNORMAL) CBC without differential (09/21/2024 6:09 AM INSURANCE SALESPERSON) Pathologist [facility] WBC 8.8 3.8 - 9.9 K/cumm Hgb 11.7(L) 13.0 - 17.5 g/dL [facility] Hct 36.0(L) 38.9 - 50.3 % [facility] Plt 162 150 - 400 K/cumm [facility] MPV 12.0 9.1 - 12.3 fL [facility] RBC 3.93(L) 4.30 - 5.80 M/cumm [facility] MCV 91.6 81.3 - 96.4 fL [facility] MCH 29.8 27.1 - 33.3 pg [facility] MCHC 32.5 32.3 - 35.7 g/dL [facility] RDW CV 13.0 11.1 - 14.9 % [facility] RDW SD 44.1 35.7 - 48.1 fL [facility] NRBC abs 0.00 0.00 - 0.01 K/cumm [facility] Blood 09/21/2024 6:09 AM INSURANCE SALESPERSON 09/21/2024 7:01 AM INSURANCE SALESPERSON Kevin Brody MD LAB BLOOD ORDERABLES Suzie gutierrez Result [facility] [address] Department [place] [address] * (ABNORMAL) Renal function panel (09/21/2024 6:09 AM INSURANCE SALESPERSON) Sodium 143 135 - 145 mmol/L Potassium, pl 3.5 3.3 - 4.9 mmol/L [facility] Chloride 105 97 - 110 mmol/L [facility] CO2 26 22 - 32 mmol/L [facility] Anion gap 12 2 - 15 mmol/L [facility] BUN 10 6 - 25 mg/dL [facility] Creatinine 0.70(L) 0.80 - 1.30 mg/dL [facility] Glucose 102 70 - 199 mg/dL [facility] Comment: Interpretive Data Fasting glucose [...] 2022. Calcium 8.6 8.5 - 10.3 mg/dL [facility] Phosphorus, pl 3.6 2.3 - 4.5 mg/dL [facility] Albumin 3.3(L) 3.5 - 5.0 g/dL [facility] Blood 09/21/2024 6:09 AM INSURANCE SALESPERSON 09/21/2024 7:01 AM INSURANCE SALESPERSON Mitchell Grajeda MD LAB BLOOD ORDERABLES Final R esult Performing Organization Address [facility] Co de Phone Number [facility] [address] [place] [address] * (ABNORMAL) Vancomycin level trough Please draw trough at this specific time. (09/20/2024 5:36 PM INSURANCE SALESPERSON) Pathologist [facility] Vancomycin trough 7.4(L) 10.0 - 20.0 mcg/mL Blood 09/20/2024 5:36 PM INSURANCE SALESPERSON 09/20/2024 5:40 PM INSURANCE SALESPERSON Narrative [facility] - 09/20/2024 6:00 PM INSURANCE SALESPERSON Please draw trough at this specific time. us Mitchell Grajeda MD LAB BLOOD ORDERABLES Final R esult Performing Organization Address City/[facility] Co de Phone Number [facility] [address] [place] [address] * (ABNORMAL) CBC without differential (09/20/2024 5:58 AM INSURANCE SALESPERSON) WBC 17.4(H) 3.8 - 9.9 K/cumm Hgb 12.8(L) 13.0 - 17.5 g/dL [facility] Hct 40.4 38.9 - 50.3 % [facility] Plt 174 150 - 400 K/cumm [facility] MPV 12.4(H) 9.1 - 12.3 fL [facility] RBC 4.37 4.30 - 5.80 M/cumm [facility] MCV 92.4 81.3 - 96.4 fL [facility] MCH 29.3 27.1 - 33.3 pg [facility] MCHC 31.7(L) 32.3 - 35.7 g/dL [facility] RDW CV 12.9 11.1 - 14.9 % [facility] RDW SD 44.1 35.7 - 48.1 fL [facility] NRBC abs 0.00 0.00 - 0.01 K/cumm [facility] Blood 09/20/2024 5:58 AM INSURANCE SALESPERSON 09/20/2024 6:35 AM INSURANCE SALESPERSON Kevin Brody MD LAB BLOOD ORDERABLES Suzie gutierrez Result [facility] [address] Department [place] [address] * (ABNORMAL) Tissue aerobic and anaerobic culture and gram stain Tissue Back, lower (09/19/2024 11:08AM INSURANCE SALESPERSON) Direct Specimen Exam Stain: No polymorphonuclear leukocytes seen. No organisms seen. Report Final Report: Very light growth Staphylococcus aureus, methicillin susceptible (.) [facility] Organism STAPHYLOCOCCUS AUREUS, METHICILLIN SUSCEPTIBLE [facility] Tissue (Back, lower) 09/19/2024 11:08 AM INSURANCE SALESPERSON 09/19/2024 12:11 PM INSURANCE SALESPERSON Narrative [facility] - 09/22/2024 9:51 AM INSURANCE SALESPERSON Deep Tissue Organism Antibiotic Method Susceptibility Staphylococcus [...] L ORDERABLES Final Result Performing Organization Address [facility]/ZIP Co de Phone Number [facility] [address] [facility] [place] [address] * (ABNORMAL) Aerobic and anaerobic culture and gram stain Abscess Back, lower (09/19/2024 11:07 AM INSURANCE SALESPERSON) Direct Specimen Exam Stain: No polymorphonuclear leukocytes seen. No organisms seen. Report Final Report: Light growth of: Staphylococcus aureus, methicillin susceptible Susceptibility reported on this organism on previous culture [id number] (.) [facility] Organism STAPHYLOCOCCUS AUREUS, METHICILLIN SUSCEPTIBLE [facility] Abscess (Back, lower) 09/19/2024 11:07 AM INSURANCE SALESPERSON 09/19/2024 12:25 PM INSURANCE SALESPERSON Narrative [facility] - 09/23/2024 8:55 AM INSURANCE SALESPERSON Deep Kevin Brody MD LAB MICROBIOLOGY - GENERA L ORDERABLES Final Result Performing Organization Address [facility] Co de Phone Number [facility] [address] [place] [address] * (ABNORMAL) Aerobic and anaerobic culture and gram stain Abscess Back, lower (09/19/2024 11:07 AM INSURANCE SALESPERSON) Direct Specimen Exam Stain: Few polymorphonuclear leukocytes seen. Rare Gram Positive Cocci Report Final Report: Moderate growth of: Staphylococcus aureus, methicillin susceptible (.) [facility] Organism STAPHYLOCOCCUS AUREUS, METHICILLIN SUSCEPTIBLE [facility] Abscess (Back, lower) 09/19/2024 11:07 AM INSURANCE SALESPERSON 09/19/2024 12:25 PM INSURANCE SALESPERSON Narrative [facility] - 09/23/2024 8:49 AM INSURANCE SALESPERSON Superficial Organism Antibiotic Method Susceptibility Staphylococcus aureus, [...] MICROBIOLOGY - GENERA L ORDERABLES Final Result [facility] [address] Department [place] [address] * OK AN ELECTIVE ENDOTRACHEAL AIRWAY, OK AN PROCEDURE PLACEHOLDER (09/19/2024 10:49 AM INSURANCE SALESPERSON) Narrative Sonia David CRNA - 09/19/2024 10:49 AM INSURANCE SALESPERSON Sonia David CRNA ? 09/19/2024 10:50 AM Airway Patient location: OR Urgency: elective Indications for airway management: anesthesia Difficult airway: no Staff: Placed by: UNDERWRITER MORTGAGE LOAN: Sonia David CRNA Emergent airway documentation: Risks [...] * (ABNORMAL) Differential, auto (09/19/2024 1:19 AM INSURANCE SALESPERSON) [facility] Neutrophil abs 13.1(H) 1.5 - 6.5 K/cumm Imm gran abs 0.1 0.0 - 0.1 K/cumm [facility] Lymphocyte abs 1.3 0.8 - 3.3 K/cumm [facility] Monocyte abs 1.3(H) 0.2 - 0.8 K/cumm [facility] Eosinophil abs 0.0 0.0 - 0.5 K/cumm [facility] Basophil abs 0.0 0.0 - 0.1 K/cumm [facility] Neutrophil pct 83.0 % [facility] Comment: Interpretive Data Percent cell count reference ranges are not reported, since discordance with absolute values may lead to misinterpretation of CBC data. Current Interpretive Data was last revised on 2018. Imm gran pct 0.5 % [facility] Comment: Interpretive Data Percent cell count reference ranges are not reported, since discordance with absolute values may lead to misinterpretation of CBC data. Current Interpretive Data was last revised on 2018. Lymphocyte pct 8.0 % [facility] Comment: Interpretive Data Percent cell count reference ranges are not reported, since discordance with absolute values may lead to misinterpretation of CBC data. Current Interpretive Data was last revised on 2018. Monocyte pct 8.3 % [facility] Comment: Interpretive Data Percent cell count reference ranges are not reported, since discordance with absolute values may lead to misinterpretation of CBC data. Current Interpretive Data was last revised on 2018. Eosinophil pct 0.1 % [facility] Comment: Interpretive Data Percent cell count reference ranges are not reported, since discordance with absolute values may lead to misinterpretation of CBC data. Current Interpretive Data was last revised on 2018. Basophil pct 0.1 % [facility] Comment: Interpretive Data Percent cell count reference ranges are not reported, since discordance with absolute values may lead to misinterpretation of CBC data. Current Interpretive Data was last revised on 2018. Blood 09/19/2024 1:19 AM INSURANCE SALESPERSON 09/19/2024 1:19 AM INSURANCE SALESPERSON us Kita Astudillo MD LAB BLOOD ORDERABLES Final Resu lt [facility] [address] Department [place] [address] * (ABNORMAL) CBC with auto differential (09/19/2024 1:19 AM INSURANCE SALESPERSON) [facility] WBC 15.8(H) 3.8 - 9.9 K/cumm Hgb 13.0 13.0 - 17.5 g/dL [facility] Hct 39.4 38.9 - 50.3 % [facility] Plt 150 150 - 400 K/cumm [facility] MPV 12.1 9.1 - 12.3 fL [facility] RBC 4.38 4.30 - 5.80 M/cumm [facility] MCV 90.0 81.3 - 96.4 fL [facility] MCH 29.7 27.1 - 33.3 pg [facility] MCHC 33.0 32.3 - 35.7 g/dL [facility] RDW CV 12.7 11.1 - 14.9 % [facility] RDW SD 42.4 35.7 - 48.1 fL [facility] NRBC abs 0.00 0.00 - 0.01 K/cumm [facility] Blood 09/19/2024 1:19 AM INSURANCE SALESPERSON 09/19/2024 1:19 AM INSURANCE SALESPERSON us Kita Astudillo MD LAB BLOOD ORDERABLES Final Resu lt [facility] [address] [place] [address] * eGFR (09/19/2024 12:55 AM INSURANCE SALESPERSON) [facility] eGFR >90 >=60 mL/min/1. 73 m2 Comment: [...] reviewed 2021. Blood 09/19/2024 12:5 5 AM INSURANCE SALESPERSON 09/19/2024 1:19 AM INSURANCE SALESPERSON Kita Astudillo MD LAB BLOOD ORDERABLES Final Resu lt [facility] [address] Department [place] [address] * Blood culture Blood (09/19/2024 12:55 AM INSURANCE SALESPERSON) Report Final Report: No growth Blood 09/19/2024 12:5 5 AM INSURANCE SALESPERSON 09/19/2024 2:14 AM INSURANCE SALESPERSON Narrative [facility] - 09/24/2024 7:01 AM INSURANCE SALESPERSON From a different site than #1. Collection->Peripheral [...] organism identification may be performed using the TagArray Blood Culture Identification panel. This assay detects microbial DNA in a blood culture broth. This assay has been cleared by the [place] Food and Drug Administration and its performance characteristics have been verified by the [facility]. Interpretive data was last revised on October 27, 2022. us Kita Astudillo MD LAB MICROBIOLOGY - GENERAL [facility] Final Result Performing Organization Address [facility] Co de Phone Number [facility] [address] Department [place] [address] * Blood culture Blood (09/19/2024 12:55 AM INSURANCE SALESPERSON) Pathologist [facility] Report Final Report: No growth Blood 09/19/2024 12:5 5 AM INSURANCE SALESPERSON 09/19/2024 2:14 AM INSURANCE SALESPERSON Narrative [facility] - 09/24/2024 7:01 AM INSURANCE SALESPERSON Collection->Peripheral Interpretive Data 1. Blood cultures are incubated and monitored continuously for 5 days (120 hours). The first negative report is issued within 24 hours of receipt in the laboratory. 2. All positive cultures are resulted and called to physicians/care providers as soon as they are detected. 3. A rapid molecular test for organism identification may be performed using the TagArray Blood Culture Identification panel. This assay detects microbial DNA in a blood culture broth. This assay has been cleared by the [place] Food and Drug Administration and its performance characteristics have been verified by the [facility]. Interpretive data was last revised on October 27, 2022. Kita Astudillo MD LAB MICROBIOLOGY - [facility] Final Result Performing Organization Address [facility] Co de Phone Number [facility] [address] Department [place] [address] * (ABNORMAL) Comprehensive metabolic panel (09/19/2024 12:55 AM INSURANCE SALESPERSON) Sodium 136 135 - 145 mmol/L Potassium, pl 4.1 3.3 - 4.9 mmol/L [facility] Comment:Hemolyzed; potassium value may be falsely elevated by as much as 0.3 - 0.5 mmol/L. Suggest redraw and reanalysis Chloride 98 97 - 110 mmol/L [facility] CO2 26 22 - 32 mmol/L [facility] Anion gap 12 2 - 15 mmol/L [facility] BUN 8 6 - 25 mg/dL [facility] Creatinine 0.70(L) 0.80 - 1.30 mg/dL [facility] Glucose 139 70 - 199 mg/dL [facility] Comment: Interpretive Data Fasting glucose [...] 2022. Calcium 9.1 8.5 - 10.3 mg/dL [facility] Bilirubin, total 0.9 0.1 - 1.2 mg/dL [facility] Protein, pl 6.7 6.5 - 8.5 g/dL [facility] Albumin 3.7 3.5 - 5.0 g/dL [facility] Alk phos 92 40 - 130 Units/L [facility] ALT 18 7 - 55 Units/L [facility] AST 22 10 - 50 Units/L [facility] Comment:Slightly Hemolyzed S pecimen Blood 09/19/2024 12:5 5 AM INSURANCE SALESPERSON 09/19/2024 1:19 AM INSURANCE SALESPERSON us Kita Astudillo MD LAB BLOOD ORDERABLES Final Resu lt [facility] [address] Department [place] [address] * (ABNORMAL) CBC without differential (08/14/2024 7:13 AM INSURANCE SALESPERSON) WBC 16.5(H) 3.8 - 9.9 K/cumm Hgb 14.5 13.0 - 17.5 g/dL [facility] Hct 43.7 38.9 - 50.3 % [facility] Plt 169 150 - 400 K/cumm [facility] MPV 12.0 9.1 - 12.3 fL [facility] RBC 4.87 4.30 - 5.80 M/cumm [facility] MCV 89.7 81.3 - 96.4 fL [facility] MCH 29.8 27.1 - 33.3 pg [facility] MCHC 33.2 32.3 - 35.7 g/dL [facility] RDW CV 13.3 11.1 - 14.9 % [facility] RDW SD 44.0 35.7 - 48.1 fL [facility] NRBC abs 0.00 0.00 - 0.01 K/cumm [facility] Blood 08/14/2024 7:13 AM INSURANCE SALESPERSON 08/14/2024 7:51 AM INSURANCE SALESPERSON us Kevin Brody MD LAB BLOOD ORDERABLES Suzie gutierrez Result [place] [address] [place] [address] * Surgical pathology (08/13/2024 11:16 AM INSURANCE SALESPERSON) Disc, intervertebral 024 11:16 AM INSURANCE SALESPERSON 08/13/2024 1:53 PM INSURANCE SALESPERSON Narrative 08/14/2024 2:09 PM INSURANCE SALESPERSON [address] ??[address] Tele: ?? Batsheva Ji MD - Brick Maker Note to Patients: This report may contain [...] REPORT Patient Name: ??TRAMAINE MARINChristopher SCOTT Address: ??[address] [place] [id number] Gender: ??M : ??1970 (Age: 53) Service: ??Ortho Location: ??[id number], ?? Hospital #: ??[id number] Patient Type: ??MBC OP IN BED Accession #: ? [id number] Taken: ? 08/13/2024 Received ? 08/13/2024 Reported: [...] x 3.5 x 0.6 cm in aggregate Crane Manager sections are submitted in cassette labeled A1. ?? [facility] MICROSCOPIC DESCRIPTION: Microscopic examination supports the above captioned diagnosis. This case was signed out at [facility], [address] [place] [address]. Clerical Data Follows A; [id number] REPORT IMAGES AND/OR SCANNED DOCUMENTS ONLY VIEWABLE IN PDF FORMAT The immunohistochemical test(s) cited in this report, if any, was developed and its performance characteristics determined by [facility] Pathology Department. ??It has not been cleared or approved by the [place]. Food and Drug Administration. ??The FDA has determined that such clearance or approval is not necessary. ??This test is used for clinical purposes. ??It should not be regarded as investigational or for research. ??[facility] is certified under the Clinical Laboratory [...] part or completely in the following laboratories: [facility], [facility], [place], [place] [id number] [place] [address], [address] [place] [id number]. Kevin Brody MD LAB PATHOLOGY ORDERABLES Final Result * [place] Fluoroscopy < 1 Hour (08/13/2024 11:08 AM INSURANCE SALESPERSON) Narrative [facility] - 08/13/2024 11:09 AM INSURANCE SALESPERSON The images from this study are not interpreted by Radiology. ??Please refer to the physician's procedure / OR operative note. Kevin Brody MD IMG FLUOROSCOPY PROCEDURE S Final Result Performing Organization Address City/State/[facility] Co de Phone Number [facility] * XR Spine Lumbar 2 or 3 Views (08/13/2024 11:08 AM INSURANCE SALESPERSON) Anatomical Region Laterality Modality Spine N/A Computed Radiogr aphy 08/13/2024 11:3 5 AM INSURANCE SALESPERSON Impressions 08/13/2024 11:35 AM INSURANCE SALESPERSON FINDINGS/IMPRESSION: 6 intraoperative fluoroscopic images are submitted for review. Fusion L4-L5 vertebral bodies. Postoperative changes of L3-L5 posterior fusion and decompression with L3-L4 interbody fusion device placement. Hardware is grossly intact. Please refer to the dedicated operative report for complete evaluation of real-time findings. Electronically signed by: Justus Toledo M.D. Narrative 08/13/2024 11:35 AM INSURANCE SALESPERSON EXAM: XR SPINE LUMBAR 2 OR 3 [...] IMG XR PROCEDURES Final R esult * OK AN ELECTIVE ENDOTRACHEAL AIRWAY, OK AN PROCEDURE PLACEHOLDER (08/13/2024 7:59 AM INSURANCE SALESPERSON) Narrative Naomi Galvan CRNA - 08/13/2024 7:59 AM INSURANCE SALESPERSON Naomi Galvan CRNA ? 08/13/2024 ??8:01 AM Airway Patient location: OR Urgency: elective Indications for airway management: anesthesia Difficult airway: no Staff: Supervising provider: Jason Christianson MD Placed by: UNDERWRITER MORTGAGE LOAN: Naomi Galvan CRNA Emergent airway documentation: Risks [...] Result * Check Sample (08/13/2024 6:59 AM INSURANCE SALESPERSON) ABO Rh O Positive MBC HCLL OTHER 08/13/2024 6:59 AM INSURANCE SALESPERSON 08/13/2024 7:23 AM INSURANCE SALESPERSON Ara Robbins NP LAB BLOOD ORDERABLES Fi nal Result [facility] [address] [place] [address] MBC * POCT lipid panel (07/30/2024 10:33 AM INSURANCE SALESPERSON) Cholesterol, POC 186 mg/dL HDL, POC 28 mg/dL Triglycerides, POC 215 mg/dL LDL Cholesterol POC 115 mg/dL Chol/HDL Ratio, POC 6.7 Non-HDL Cholesterol, POC 158 mg/dL Cholesterol Total, POC 186 mg/dL Capillary blood 07/30/2024 1 0:33 AM INSURANCE SALESPERSON Hunter Smith MD POINT OF CARE TEST ORDERABLES Fi nal Result * ECG 12 lead (07/30/2024 10:22 AM INSURANCE SALESPERSON) Hunter Smith MD ECG ORDERABLES Edited Result - Final * Differential, auto (07/23/2024 10:10 AM CDT) Neutrophil abs 5.6 1.5 - 6.5 K/cumm Imm gran abs 0.0 0.0 - 0.1 K/cumm [facility] Lymphocyte abs 2.1 0.8 - 3.3 K/cumm [facility] Monocyte abs 0.7 0.2 - 0.8 K/cumm [facility] Eosinophil abs 0.2 0.0 - 0.5 K/cumm [facility] Basophil abs 0.0 0.0 - 0.1 K/cumm [facility] Neutrophil pct 64.7 % [facility] Comment: Interpretive Data Percent cell count reference ranges are not reported, since discordance with absolute values may lead to misinterpretation of CBC data. Current Interpretive Data was last revised on 2018. Imm gran pct 0.2 % [facility] Comment: Interpretive Data Percent cell count reference ranges are not reported, since discordance with absolute values may lead to misinterpretation of CBC data. Current Interpretive Data was last revised on 2018. Lymphocyte pct 24.8 % [facility] Comment: Interpretive Data Percent cell count reference ranges are not reported, since discordance with absolute values may lead to misinterpretation of CBC data. Current Interpretive Data was last revised on 2018. Monocyte pct 8.1 % [facility] Comment: Interpretive Data Percent cell count reference ranges are not reported, since discordance with absolute values may lead to misinterpretation of CBC data. Current Interpretive Data was last revised on 2018. Eosinophil pct 1.7 % [facility] Comment: Interpretive Data Percent cell count reference ranges are not reported, since discordance with absolute values may lead to misinterpretation of CBC data. Current Interpretive Data was last revised on 2018. Basophil pct 0.5 % [facility] Comment: Interpretive Data Percent cell count reference ranges are not reported, since discordance with absolute values may lead to misinterpretation of CBC data. Current Interpretive Data was last revised on 2018. Blood 07/23/2024 10:1 0 AM CDT 07/23/2024 10:10 AM CDT us Ara Robbins PELT GRADER LAB BLOOD ORDERABLES Fi nal Result [facility] [address] [place] [address] * CBC with auto differential (07/23/2024 10:10 AM CDT) WBC 8.6 3.8 - 9.9 K/cumm Hgb 15.7 13.0 - 17.5 g/dL [facility] Hct 47.5 38.9 - 50.3 % [facility] Plt 184 150 - 400 K/cumm [facility] MPV 11.6 9.1 - 12.3 fL [facility] RBC 5.27 4.30 - 5.80 M/cumm [facility] MCV 90.1 81.3 - 96.4 fL [facility] MCH 29.8 27.1 - 33.3 pg [facility] MCHC 33.1 32.3 - 35.7 g/dL [facility] RDW CV 12.9 11.1 - 14.9 % [facility] RDW SD 42.5 35.7 - 48.1 fL [facility] NRBC abs 0.00 0.00 - 0.01 K/cumm [facility] Blood 07/23/2024 10:1 0 AM CDT 07/23/2024 10:10 AM CDT Ara Robbins NP LAB BLOOD ORDERABLES Fi nal Result Performing Organization Address City/[facility]/ZIP Co de Phone Number [facility] [address] [place] [address] * Vitamin D 25 hydroxy (07/23/2024 10:10 AM CDT) [facility] Vitamin D 25-OH 38 30 - 80 ng/mL Blood 07/23/2024 10:1 0 AM CDT 07/23/2024 10:10 AM CDT Ara Robbins NP LAB BLOOD ORDERABLES Fi nal Result Performing Organization Address [facility]/ZIP Co de Phone Number [facility] [address] [place] [address] * (ABNORMAL) Hemoglobin A1c (07/23/2024 10:10 AM CDT) [facility] Hgb A1C 5.7(H) 4.0 - 5.6 % Estimated Average Glucose 117 mg/dL [facility] Comment: The ADA recommends reporting an estimated Average Glucose (eAG) with all Hemoglobin A1c results using the equation derived from a study of 507 normal and diabetic adults. ??Minority populations were underrepresented and children were not included. ?? (Diabetes Care 31:1813-0605, 2008). ??The eAG is not equivalent to a fasting glucose. Blood 07/23/2024 10:1 0 AM CDT 07/23/2024 10:10 AM CDT Ara Robbins NP LAB BLOOD ORDERABLES Fi nal Result Performing Organization Address [facility] Co de Phone Number [facility] [address] Department [place] [address] * Type and screen (07/23/2024 9:54 AM CDT) [place], indirect Negative ABO Rh O Positive [facility] Blood 07/23/2024 9:54 AM CDT 07/23/2024 10:24 AM CDT Narrative [facility] - 07/23/2024 11:28 AM CDT Is this test being ordered in advance for a procedure?->Yes Expected date of procedure:->08/13/24 Has the patient been transfused in the past 3 months?->No Ara Robbins NP LAB BLOOD BANK TEST ORD ERABLES Final Result Performing Organization Address [facility] de Phone Number [facility] [address] [place] [address] from Last 3 Months Insurance [place] For more information, please contact: [phone] * Full Code (Latest Code Status on File) Date Activated Date Inactivated Comments 09/19/2024 12:47 PM * Full Code Date Activated Date Inactivated Comments 09/18/2024 8:09 PM 09/19/2024 12:47 PM * Full Code Date Activated Date Inactivated Comments 08/13/2024 2:58 PM 08/14/2024 4:58 PM Care Teams Cerner Analyst Relationship Specialty Start Date End Date Elton De La Fuente MD PCP - General Family Medicine 06/02/21
--- OUTSIDE RECORDS SUMMARY | 2024-09-25 08:41 | XMS_ITS | Encounter Summary ---
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] Procedures AZ ARTHRODESIS COMBINED TQ 1NTRSPC LUMBAR AZ ARTHRODESIS CMBN TQ 1NTRSPC EACH ADDITIONAL AZ POSTERIOR SEGMENTAL INSTRUMENTATION 3-6 VRT SEG AZ INSJ BIOMCHN DEV INTERVERTEBRAL DSC SPC W/ARTHRD [place] AUTOGRAFT SPINE SURGERY LOCAL FROM SAME INCISION L3-5 Decompressive Laminectomy, Posterior Lumbar Interbody Fusion using Zavation EZ Span Cage, Mathew Screws, Local Autograph and L4-5 Repeat Discectomy Kevin Brody MD [address] [place] [address] [place] [address] Phone: tel: fax: Referral ID Status Reason Start Date Expiration Date Visits Re quested Visits Authorized [id number] 07/11/2024 1 1 Encounter Details Date Type Department Care Team (Latest Contact Info) Description 08/13/2024 5:41 AM MARINE SCIENTIST - 08/14/2024 12:58 PM MARINE SCIENTIST Hospital Encounter [facility] [address] [place] [id number] Kevin Brody MD [address] [facility] [address] [place] [address] Pseudoclaudication syndrome Discharge Disposition: Discharge [...] on file Legal Sex Male 6:34 PM MARINE SCIENTIST Gender Identity Not on file Sexual Orientation Not on file 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 file Not on file Not on file documented as of this encounter Last Filed Vital Signs Vital Sign Reading Time Taken Comments Blood Pressure 144/78 08/14/2024 11:44 AM MARINE SCIENTIST Pulse 85 08/14/2024 11:44 AM MARINE SCIENTIST Temperature 36.5 ??C (97.7 ??F) 08/14/2024 1 1:44 AM MARINE SCIENTIST Respiratory Rate 16 08/14/2024 11:4 4 AM MARINE SCIENTIST Oxygen Saturation 99% 08/14/2024 11: 44 AM MARINE SCIENTIST Inhaled Oxygen Concentration - - Weight 82.9 kg (182 lb 12.2 oz) 08/13/2024 6:00 AM MARINE SCIENTIST Height 182.9 cm (6') 08/13/2024 6:00 AM MARINE SCIENTIST Body Mass Index 24.79 08/13/2024 6:00 AM MARINE SCIENTIST documented in this encounter Discharge Summaries * Margaux Root PA - 08/14/2024 10:11 AM CST Inpatient Discharge Summary BRIEF OVERVIEW Admitting Provider: Kevin Brody MD Discharge Provider: Kevin Brody MD Primary Care Physician at Discharge: Elton De La Fuente MD [phone] Admission Date: 08/13/2024 Discharge Date: 08/14/2024 Admission Location: [facility] Hospital Problems/Diagnoses: Principal Problem: Lumbar stenosis [...] Status at Discharge: Full code Discharge Instructions: [facility] Dr. Kevin Brody MD, FACS [address] [place] [address] Email: [email or web address] CARE DISCHARGE INSTRUCTIONS INCISION * [...] may remove them * If you have ajckelyn they will be removed at your first [...] spasms Commonly known as: ZANAFLEX Outpatient Follow-Up: NE SCIENTIST documented in this encounter Discharge Instructions * Discharge Instructions* Margaux Root PA - 08/14/2024 10:10 AM MARINE SCIENTIST [facility] Dr. Kevin Brody MD, [place] [address] Email: [email or web address] AFTER SURGERY CARE DISCHARGE INSTRUCTIONS INCISION * [...] other questions or concerns? Call the office NE SCIENTIST documented in this encounter Medications at Time [...] Equipment-Currently Using None Prior Function Level of [place] Independent with ADLs;Independent functional transfers;Independent with ambulation Lives With Significant other (works during the day but is taking a few days off. 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 Patient and significant other verbalized understanding NE SCIENTIST * Kevin Brody MD - 08/14/2024 9:19 [...] oxycodone 5/325 mg p.o. q.4 hours p.r.n. NE SCIENTIST * Faviola Boland, OT - 08/14/2024 8:40 AM CST Occupational Therapy Evaluation 08/14/24 0771 General Chart Reviewed Yes Session Type Evaluation [...] Equipment-Currently Using None Prior Function Level of [place] Independent with ADLs;Independent functional transfers;Independent with ambulation [...] activity;Therapeutic exercise OT Equipment Recommended (S) Shower chair;Director Of Cath Lab;Long handled sponge OT Evaluation Complete Yes Multi-Disciplinary [...] completed via verbal instruction. Patient verbalized understanding NE SCIENTIST * Sue Armijo, PT - 08/13/2024 3:41 PM CST Physical Therapy 08/13/24 1541 General PT Received On 08/13/24 Subjective Comment Pt with activity orders to initiate transfers and ambulation on POD 1, activity restricted to standing at bedside this date. Follow up for skilled PT evaluation on 08/14. NE SCIENTIST NE SCIENTIST documented in this encounter H&P Notes * [...] reveals 5/5 strength in deltoids, biceps, triceps, radiographer mammographer, iliopsoas, hamstrings, dorsi and plantarflexors and extensor [...] NOTED 08/13/24. DLK Job ID/Internal Job ID: [id number] NE SCIENTIST documented in this encounter Nursing Notes * Arin Cortez RN - 08/14/2024 12:58 PM CST Discharge instructions given to patient and his , both verbalized understanding. Patient discharged at 1255 NE SCIENTIST documented in this encounter Miscellaneous Notes * Plan of Care - Leela Whitmore RN - 08/14/2024 12:58 PM CST DISPO: home with family. NE SCIENTIST * Brief Op Note - Kevin Brody MD - 08/13/2024 8:04 AM CST Operative Progress Note Surgical Team: Surgeons and Role: * Kevin Brody MD - Primary Anesthesiologist: Jason Christianson MD SENIOR ENERGY ANALYST: Nadege Vargas CRNA; Naomi Galvan CRNA Head Insulation Board Saw Operator: El Diego RN Web Applications Programmer: Hui Salas RT; Maisha Liao RT Head Insulation Board Saw Operator Relief: Dajuan Dutton RN Scrub Relief: Gisselle Lazaro RN Scrub: Angie Saleh RN CHARGE MASTER COORDINATOR: Fely Cross CRNFA DATE OF SURGERY : [...] Implant Name Type Inv. Item Serial No. Auto Apprentice Mechanic Lot No. [id number] No. Used Action [employer] Stimulan Rapid Cure Kit Paste Forest Fire Officer 5cc 12.5cc Bone Void 620-005 - [id number] [employer] Stimulan Rapid Cure Kit Paste Forest Fire Officer 5cc 12.5cc Bone Void 620-005 Biocom[employer]ites [id number] N/A 1 Implanted [employer] Cage Spinal Lumbar 10 Degree Tlif Expandable 7-11.5mm Titanium 360- [id number] - [id number] [employer] Cage Spinal Lumbar 10 Degree Tlif Expandable 7-11.5mm Titanium [id number] [employer] N/A 2 Implanted JOB SPINE 4.5mm 35mm Polyaxial Spine Screw Bone Deformity [id number] - [id number] JOB SPINE 4.5mm 35mm Polyaxial Spine Screw Bone Deformity 3001- [id number] Job Spine N/A 6 Implanted JOB SPINE 4.5mm 75mm Contour [place] Spinal Cocr [id number] - [id number] JOB SPINE 4.5mm 75mm Contour [place] Spinal Cocr [id number] [place] Spine N/A 2 Implanted JOB SPINE 26mm Semiadjustable Transverse Spine Connector [place] Posterior 3001- [id number] - [id number] JOB SPINE 26mm Semiadjustable Transverse Spine Connector [place] Posterior [id number] [place] Spine N/A 1 Implanted JOB SPINE 32mm Semiadjustable Transverse Spine Connector [place] Posterior 3001- [id number] - [id number] JOB SPINE 32mm Semiadjustable Transverse Spine Connector [place] Posterior [id number] Job Spine N/A 1 Implanted Blood/Blood Products Transfused: 0 mls Complications: None Condition on Discharge from the operating room was stable Kevin Brody MD Date: 08/13/2024 Time: 11:30 AM No Resident involved on case NE SCIENTIST * Op Note - Kevin Brody MD [...] concluding atL4 was then removed with a SIGKAT spine cutter. The prior laminectomy defect on [...] LOSS 250 mL. Job ID/Internal Job ID: [id number] NE SCIENTIST documented in this encounter Plan of Treatment Scheduled Orders Name Type Priority Associated Diagnoses Order Schedule Surgical pathology Pathology and Cytology Timed Pseudoclaudication syndrome Release Upon Ordering for 1 Occurrences starting 08/13/2024 documented as of this encounter Procedures Procedure Name Priority Date/Time Associated Diagnosis Comments CBC WITHOUT DIFFERENTIAL Routine 08/14/2024 7:13 AM MARINE SCIENTIST FL FLUOROSCOPY < 1 HOUR IP Routine 08/13/2024 11:08 AM MARINE SCIENTIST XR SPINE LUMBAR 2 OR 3 VIEWS IP Routine 08/13/2024 11:08 AM MARINE SCIENTIST FUSION LUMBAR - POSTERIOR 2 LEVELS 08/13/2024 7:30 AM MARINE SCIENTIST Pseudoclaudication syndrome B CHECK SAMPLE STAT 08/13/2024 6:59 AM MARINE SCIENTIST NEURO MR OUTSIDE REFERENCE Routine 03/03/2024 12:00 AM CDT NEURO MR OUTSIDE REFERENCE Routine 01/26/2024 12:00 AM CDT documented in this encounter Results * (ABNORMAL) CBC without differential (08/14/2024 7:13 AM MARINE SCIENTIST) WBC 16.5(H) 3.8 - 9.9 K/cumm Hgb 14.5 13.0 - 17.5 g/dL [facility] Hct 43.7 38.9 - 50.3 % [facility] Plt 169 150 - 400 K/cumm [facility] MPV 12.0 9.1 - 12.3 fL [facility] RBC 4.87 4.30 - 5.80 M/cumm [facility] MCV 89.7 81.3 - 96.4 fL [facility] MCH 29.8 27.1 - 33.3 pg [facility] MCHC 33.2 32.3 - 35.7 g/dL [facility] RDW CV 13.3 11.1 - 14.9 % [facility] RDW SD 44.0 35.7 - 48.1 fL [facility] NRBC abs 0.00 0.00 - 0.01 K/cumm [facility] Blood 08/14/2024 7:13 AM MARINE SCIENTIST 08/14/2024 7:51 AM MARINE SCIENTIST us Kevin Brody MD LAB BLOOD ORDERABLES Suzie l Result [facility] [address] Department [place] [address] * FL Fluoroscopy < 1 Hour (08/13/2024 11:08 AM MARINE SCIENTIST) Narrative [facility] - 08/13/2024 11:09 AM MARINE SCIENTIST The images from this study are not interpreted by Radiology. ??Please refer to the physician's procedure / OR operative note. us Kevin Brody MD IMG FLUOROSCOPY PROCEDURE S Final Result [facility] * XR Spine Lumbar 2 or 3 Views (08/13/2024 11:08 AM MARINE SCIENTIST) Anatomical Region Laterality Modality Spine N/A Computed Radiogr aphy 08/13/2024 11:3 5 AM MARINE SCIENTIST Impressions 08/13/2024 11:35 AM MARINE SCIENTIST FINDINGS/IMPRESSION: 6 intraoperative fluoroscopic images are submitted for review. Fusion L4-L5 vertebral bodies. Postoperative changes of L3-L5 posterior fusion and decompression with L3-L4 interbody fusion device placement. Hardware is grossly intact. Please refer to the dedicated operative report for complete evaluation of real-time findings. Electronically signed by: Justus Toledo M.D. Narrative 08/13/2024 11:35 AM MARINE SCIENTIST EXAM: XR SPINE LUMBAR 2 OR 3 [...] esult * Check Sample (08/13/2024 6:59 AM MARINE SCIENTIST) ABO Rh O Positive MBC HCLL OTHER 08/13/2024 6:59 AM MARINE SCIENTIST 08/13/2024 7:23 AM MARINE SCIENTIST Result [facility] Ara Robbins SALES SPECIALIST LAB BLOOD ORDERABLES Fi nal Result Performing Organization Address [facility] de Phone Number [facility] [address] Department [place] [address] MBC * Neuro MR Outside Reference (03/03/2024 12:00 AM CDT) Narrative RAD_PACS_OUTSIDE_FILM_[facility] - 08/13/2024 7:45 AM MARINE SCIENTIST This order has been auto-finalized and does not contain a result. Provider Transcribed Order IMG MRI PROCEDURES Fi nal Result Performing Organization Address [facility] de Phone Number [facility]PACS[facility]OUTSIDE_FILM_[facility] * Neuro MR Outside Reference (01/26/2024 12:00 AM CDT) Narrative [facility]PACS[facility]OUTSIDE_FILM_[facility] - 08/13/2024 7:42 AM MARINE SCIENTIST This order has been auto-finalized and does not contain a result. Provider Transcribed Order IMG MRI PROCEDURES Fi nal Result Performing Organization Address [facility] de Phone Number [facility]PACS[facility]OUTSIDE_FILM_[facility] documented in this encounter [...] Pre-Emptive AnalgesiaIndications:Pre-Emptive Analgesia Given 08/13/2024 7:10 AM MARINE SCIENTIST 1,000 mg acetaminophen (TYLENOL) tablet 1,000 mg 1,000 mg, oral, Every 6 hours scheduled, First dose on Mon08/13/24 at 1530, Indications: PainIndications:Pain Given 08/14/2024 8:43 AM MARINE SCIENTIST 1,000 mg Given 08/14/2024 4:29 AM MARINE SCIENTIST 1,000 mg Given 08/13/2024 8:48 PM MARINE SCIENTIST 1,000 mg baclofen (LIORESAL) tablet 10 mg 10 mg, oral, Every 8 hours scheduled, First dose on Mon08/13/24 at 1530, Indications: Muscle spasmIndications:Muscle spasm Given 08/14/2024 4:29 AM MARINE SCIENTIST 10 mg Given 08/13/2024 8:48 PM MARINE SCIENTIST 10 mg Given 08/13/2024 4:05 PM MARINE SCIENTIST 10 mg dimenhyDRINATE (DRAMAMINE) tablet 25 mg 25 mg, oral, Once, On Mon08/13/24 at 0645, For 1 dose, Pre-Op, Indications: Prevention of Nausea and VomitingIndications:Prevention of Nausea and Vomiting Given 08/13/2024 7:10 AM MARINE SCIENTIST 25 mg diphenhydrAMINE (BENADRYL) tab/cap 25 mg 25 mg, oral, Nightly PRN, sleep, Starting on Mon08/13/24 at 1644 docusate sodium (COLACE) capsule 100 mg 100 mg, oral, 2 times daily, First dose on Mon08/13/24 at 2100, Hold for diarrhea, Indications: constipationIndications:constipation Given 08/14/2024 8:43 AM MARINE SCIENTIST 100 mg Given 08/13/2024 8:48 PM MARINE SCIENTIST 100 mg fentaNYL (SUBLIMAZE) preservative free injection 50 mcg 50 mcg, intravenous, Once as needed, breakthrough pain, Starting on Mon08/13/24 at 1205, For 1 dose, Phase I, Administer for uncontrolled or increasing pain while in PACU only. Given 08/13/2024 1:54 PM MARINE SCIENTIST 50 mcg gabapentin (NEURONTIN) capsule 300 mg 300 mg, oral, Once, On Mon08/13/24 at 0645, For 1 dose, Pre-Op, Indications: Pre-Emptive AnalgesiaIndications:Pre-Emptive Analgesia Given 08/13/2024 7:10 AM MARINE SCIENTIST 3 00 mg HYDROmorphone (DILAUDID) injection 0.2 [...] more., Indications: PainIndications:Pain Given 08/13/2024 12:20 PM MARINE SCIENTIST 0.2 mg HYDROmorphone (DILAUDID) injection 0.4 mg [...] more., Indications: PainIndications:Pain Given 08/13/2024 1:23 PM MARINE SCIENTIST 0.4 mg Given 08/13/2024 1:10 PM MARINE SCIENTIST 0.4 mg Given 08/13/2024 12:32 PM MARINE SCIENTIST 0.4 mg lidocaine in dextrose 5% 2 g/250 mL (8 mg/mL) infusion (premix) 1.5 mg/kg/hr ? 77.6 kg [place] weight (14.55 mL/hr), 8 mg/mL, intravenous, Continuous, Starting on Mon08/13/24 at 1230, Until Mon08/14/24 at 1658, Indications: Pain, Call MD for symptoms of toxicity (ringing in ears, metallic taste, somnolence, numb lips) or lidocaine level greater than 5., RoutineIndications: Pain Restarted 08/13/2024 12:16 PM MARINE SCIENTIST 1.5 mg/kg/hr 14.55 mL/hr LORazepam (ATIVAN) 0.5 mg in sodium chloride 0.9% (further dilution required) injection 0.5 mg, intravenous, Every 6 hours PRN, anxiety, Starting on Mon08/13/24 at 1458, Withdraw ordered dose amount then dilute with equal volume of 0.9% sodium chloride. Administer total volume to patient. Do not exceed a rate of 2 mg/minute. Given 08/13/2024 10:21 PM MARINE SCIENTIST 0.5 mg nicotine (NICODERM CQ) 14 mg patch 24 hour 1 patch 1 patch, transdermal, Administer over 24 Hours, Daily, First dose on Mon08/13/24 at 1715, Apply a new patch every 24 hours to a clean, dry, hairless site on the upper arm or hip. Rotate site. Medication Applied 08/14/2024 8:44 AM MARINE SCIENTIST 1 patch Left Shoulder Medication Applied 08/13/2024 6:09 PM MARINE SCIENTIST 1 patch Right Arm oxyCODONE (ROXICODONE) tablet 5 mg 5 mg, oral, Every 4 hours while awake, First dose on Mon08/13/24 at 1530, Indications: PainIndications:Pain Given 08/14/2024 10:11 AM MARINE SCIENTIST 5 mg Given 08/14/2024 4:29 AM MARINE SCIENTIST 5 mg Given 08/13/2024 8:48 PM MARINE SCIENTIST 5 mg oxyCODONE (ROXICODONE) tablet 5 mg 5 mg, oral, As needed, 1st line for pain, Starting on Mon08/13/24 at 1205, For 2 doses, Phase I, 1st ORAL choice for pain, when the patient is able to tolerate PO medications. May repeat in 1 hour if pain is uncontrolled or increasing after 1st dose., Indications: PainIndications:Pain Given 08/13/2024 2:30 PM MARINE SCIENTIST 5 mg Given 08/13/2024 1:23 PM MARINE SCIENTIST 5 mg sodium chloride 0.9% infusion 30 mL/hr, intravenous, Continuous, Starting on Mon08/13/24 at 0645 New Bag 08/13/2024 9:55 AM MARINE SCIENTIST Rate/Dose Verify 08/13/2024 7:26 AM MARINE SCIENTIST 30 mL/h r New Bag 08/13/2024 7:11 AM MARINE SCIENTIST 30 mL/hr 30 mL/hr vancomycin 1,000 mg/200 mL in dextrose 5% (premix) 1,000 mg 1,000 mg, intravenous, Administer over 60 Minutes, Once, On Mon08/13/24 at 1900, For 1 dose, Administer 12 hours after last pre-operative dose., Indications: Prophylaxis, SurgicalIndications:Prophylaxis, Surgical New Bag 08/13/2024 6:28 PM MARINE SCIENTIST 1,000 mg vancomycin 1500 mg/250 mL in sodium chloride 0.9% (premix) 1,500 mg 1,500 mg, intravenous, Administer over 90 Minutes, Once, On Mon08/13/24 at 0645, For 1 dose, Pre-Op, Indications: Prophylaxis, SurgicalIndications:Prophylaxis, Surgical New Bag 08/13/2024 7:10 AM MARINE SCIENTIST 1,500 mg documented in this encounter Discontinued Medications Medication Sig Discontinue Reason Start Date End Da te ibuprofen (ADVIL,MOTRIN) 800 mg tablet Take 1 tablet (800 mg total) by mouth 3 (three) times a day as needed for pain Stop Taking at Discharge 02/25/2022 08/14/2024 documented as of this encounter Active and Recently Administered Medications Times are shown in MARINE SCIENTIST. Scheduled Medication Order 08/12/2024 08/13/2024 08/14/2024 acetaminophen [...] infusion (premix) 1.5 mg/kg/hr ? 77.6 kg [place] weight (14.55 mL/hr), 8 mg/mL, intravenous, Continuous, [...] 1104, Intra-Op 1104 (Given - Provider: Stepan Bordy MD - Comment: Irrigation) promethazine (PHENERGAN) tablet [...] injection 4 mg 1 08/13 povidone-iodine (BETADINE [place] EP) 5 % ophthalmic solution 1 08/13/2024 [...] 08/13/2024 documented in this encounter Care Teams Technical Account Manager Relationship Specialty Start Date End Date Elton De La Fuente MD PCP - General Family Medicine 06/02/21 documented as of this encounter
--- OUTSIDE RECORDS SUMMARY | 2024-09-25 08:42 | XMS_ITS | Encounter Summary ---
Author Organization 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 Batsheva Ji MD - [employer] Note to Patients: This report may contain [...] Patient Name: ??TRAMAINE MARIN Araceli SCOTT Address: ??[address] [place] [id number] Gender: ??M : ??1970 (Age: 52) Service: ?? Location: ??, ?? Hospital #: ??[id number] Patient Type: ??[facility] Accession #: ? [id number] Taken: ? 08/11/2023 Received ? 08/14/2023 Reported: [...] above captioned diagnosis. Clerical Data Follows A; [id number] REPORT IMAGES AND/OR SCANNED DOCUMENTS ONLY VIEWABLE IN PDF FORMAT The immunohistochemical test(s) cited in this report, if any, was developed and its performance characteristics determined by [facility] Pathology Department. ??It has not been cleared or approved by the U.S. Food and Drug Administration. ??The FDA has determined that such clearance or approval is not necessary. ??This test is used for clinical purposes. ??It should not be regarded as investigational or for research. ??[facility] is certified under the Clinical [...] on filedocumented in this encounter Care Teams Paper Rewinder Relationship Specialty Start Date End Date Elton De La Fuente MD PCP - General Family Medicine 06/02/21 documented as of this encounter
--- OUTSIDE RECORDS SUMMARY | 2024-09-25 08:42 | XMS_ITS | Encounter Summary ---
Author Organization [facility] Healthcare Address [address] [place] [address] Care Team Providers Care Summer Internship Name Role Phone Elton De La Fuente MD Primary Care Provider [phone] Encounter Details Date Type Department Care Team (Late st Contact Info) Description 07/23/2024 Telephone 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 Brody office. Cardiology clearance requested for this patient. CURT 04/21/22. Patient provided with splitting machine tender's contact info during PAT visit. Mendy updated on plan. documented in this encounter Plan of Treatment Not on file documented as of this encounter Visit Diagnoses Not on filedocumented in this encounter Care Teams Summer Internship Relationship Specialty Start Date End Date Elton De La Fuente MD PCP - General Family Medicine 06/02/21 documented as of this encounter
--- OUTSIDE RECORDS SUMMARY | 2024-09-25 08:42 | XMS_ITS | Encounter Summary ---
Author Organization [facility] Address [address] [place] [address] Care Team Providers Care Brewery Pumper Name Role Phone Elton De La Fuente MD Primary Care Provider [phone] Reason for Referral * Pulmonology (Routine) - Closed Specialty Diagnoses / Procedures Referred By Contac t Referred To Contact Diagnoses Abnormal chest x-ray Procedures Pulmonary Function Test -External Brittany Payne NP [address] [place] [address] Phone: tel: fax: Referral ID Status Reason Start Date Expiration Date Visits Re quested Visits Authorized [id number] Closed 03/18/2022 04/17/2023 1 1 Reason for Visit * Reason Comments Follow-up 8 mo Encounter Details Date Type Department Care Team (Late st Contact Info) Description 03/18/2022 10:30 AM CDT Office Visit [facility] Cardiology [address] [phone] Brittany Payne NP [address] [address] Abnormal chest x-ray (Primary Dx); [...] on file Legal Sex Male 6:34 PM TRIPOLER Gender Identity Not on file Sexual Orientation Not on file 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 [facility] Cardiology [address] [place] [address] Date of Visit: 03/18/2022 Patient ID: Tramaine [...] denies any prior cardiovascular history including clinical [place], angina, heart failure or any arrhythmias. Patient [...] illicit drug use 03/18/2022 office visit with HOME DEMONSTRATOR: He underwent microdiskectomy last year but reports [...] time. 03/18/2022 MICKEY Menendez- Nurse Practitioner with [facility] Cardiology This note is dictated and transcribed using PO[employer] Direct Software. Sandwich Artist variancesmay occur. Despite proofreading, typographical errors may [...] 08/14/2024 added in this encounter Care Teams Brewery Pumper Relationship Specialty Start Date End Date Elton De La Fuente MD PCP - General Family Medicine 06/02/21 documented as of this encounter
--- OUTSIDE RECORDS SUMMARY | 2024-09-25 08:42 | XMS_ITS | Encounter Summary ---
Author Organization [facility] Address [address] [address] [place] [address] Care Team Providers Care Planning Rn Name Role Phone Elton De La Fuente MD Primary Care Provider Encounter Details Date Type Department Care Team (Late st Contact Info) Description 06/03/2021 Telephone [facility] Cardiology [address] [facility] [address] [place] [address] Hunter Smith MD [address] [place] [id number] Social History Tobacco Use Types Packs/Day Years Used Date Smoking Tobacco: Every Day Cigarettes 1 20 Smokeless Tobacco: Never Alcohol Use Standard Drinks/Week Comments Not Currently 0 (1 standard drink = 0.6 oz pur e alcohol) Recovering alcoholic-whiskey Sex and Gender Information Value Date Recorded Sex Assigned at Not on file Legal Sex Male 6:34 PM DECK 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
--- OUTSIDE RECORDS SUMMARY | 2024-09-25 08:42 | XMS_ITS | Encounter Summary ---
Author Organization [facility] Address [address] [facility] [address] [facility] [address] [place] [address] Care Team Providers Care Telephone Service Representative Name Role Phone Elton De La Fuente MD Primary Care Provider Encounter Details Date Type Department Care Team (Late st Contact Info) Description 03/31/2022 Telephone [facility] Cardiology [address] [facility] [address] [place] [address] Brittany Payne NP [address] [place] [address] Social History Tobacco Use Types Packs/Day Years Used Date Smoking Tobacco: Every Day Cigarettes 1 20 Smokeless Tobacco: Never Alcohol Use Standard Drinks/Week Comments Not Currently 0 (1 standard drink = 0.6 oz pur e alcohol) Recovering alcoholic-whiskey Sex and Gender Information Value Date Recorded Sex Assigned at Not on file Legal Sex Male 6:34 PM CLINICAL RECRUITER Gender Identity Not on file Sexual Orientation Not on file 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
--- OUTSIDE RECORDS SUMMARY | 2024-09-25 08:42 | XMS_ITS | Encounter Summary ---
Author Organization [facility] Healthcare Address [address] [place] [address] Care Team Providers Care Associate Publisher Name Role Phone Elton De La Fuente MD Primary Care Provider [phone] Reason for Visit * Reason Comments New Patient Pre-op Exam Encounter Details Date Type Department Care Team (Latest Contact Info) Description 07/30/2024 10:15 AM OUTSIDE MEDICAL SALES REPRESENTATIVE Office Visit [facility] Cardiology [address] [place] [phone] Hunter Smith MD [address] [place], [place] [phone] Preop cardiovascular exam (Primary Dx); Tobacco abuse; [...] on file Legal Sex Male 6:34 PM OUTSIDE MEDICAL SALES REPRESENTATIVE Gender Identity Not on file Sexual Orientation Not on file 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 Not on file Not on file documented as of this encounter Last Filed Vital Signs Vital Sign Reading Time Taken Comments Blood Pressure 122/70 07/30/2024 10:20 AM OUTSIDE MEDICAL SALES REPRESENTATIVE Pulse 82 07/30/2024 10:20 AM OUTSIDE MEDICAL SALES REPRESENTATIVE Temperature - - Respiratory Rate 14 07/30/2024 10:20 AM OUTSIDE MEDICAL SALES REPRESENTATIVE Oxygen Saturation 95% 07/30/2024 10:20 AM OUTSIDE MEDICAL SALES REPRESENTATIVE Inhaled Oxygen Concentration - - Weight 82.6 kg (182 lb) 07/30/2024 10:20 AM OUTSIDE MEDICAL SALES REPRESENTATIVE Height 182.9 cm (6') 07/30/2024 10:20 AM OUTSIDE MEDICAL SALES REPRESENTATIVE Body Mass Index 24.68 07/30/2024 10:20 AM OUTSIDE MEDICAL SALES REPRESENTATIVE documented in this encounter Progress Notes * Hunter Smith MD - 07/30/2024 10:15 AM CST [facility] CARDIOLOGY 07/30/2024 CHIEF COMPLAINT Chief Complaint Patient presents with New Patient Pre-op Exam HPI Tramaine Marin . is a 53 y.o. male with DJD, emphysema (based on patient's heavy smoking status and chest x-ray findings), tobacco abuse, history of cocaine abuse. 06/02/2021 initial evaluation-patient has been referred for preoperative cardiovascular evaluation.He denies any prior cardiovascular history including clinical [place], angina, heart failure or any arrhythmias. Patient [...] Value Date TRIG 151 (H) 03/30/2020 Chest a-wbv-objaiiwokzmpi lungs consistent with emphysema. 04/02/2021 [facility] EKG-sinus rhythm with occasional PACs; leftward axis, incomplete right bundle branch block. 04/02/2021 [facility] EKG-sinus rhythm, incomplete RBBB. 06/02/2021 Lipids-total [...] any known prior cardiac history including clinical HI, angina or heart failure. Current EKG shows [...] was used to complete this document, therefore, budget clerk variances may occur. IDE MEDICAL SALES REPRESENTATIVE documented in this encounter Plan of Treatment Not on file documented as of this encounter Procedures Procedure Name Priority Date/Time Associated Diagnosis Comments POCT LIPID PANEL Routine 07/30/2024 10:3 3 AM OUTSIDE MEDICAL SALES REPRESENTATIVE Lipid screening ECG 12-LEAD Routine 07/30/2024 10:22 AM OUTSIDE MEDICAL SALES REPRESENTATIVE Preop cardiovascular exam documented in this encounter Results * POCT lipid panel (07/30/2024 10:33 AM OUTSIDE MEDICAL SALES REPRESENTATIVE) Cholesterol, POC 186 mg/dL HDL, POC 28 mg/dL Triglycerides, POC 215 mg/dL LDL Cholesterol POC 115 mg/dL Chol/HDL Ratio, POC 6.7 Non-HDL Cholesterol, POC 158 mg/dL Cholesterol Total, POC 186 mg/dL Capillary blood 07/30/2024 1 0:33 AM OUTSIDE MEDICAL SALES REPRESENTATIVE us Hunter Smith MD POINT OF CARE TEST ORDERABLES Fi nal Result * ECG 12 lead (07/30/2024 10:22 AM OUTSIDE MEDICAL SALES REPRESENTATIVE) us Hunter Smith MD ECG ORDERABLES Edited Result - Final documented in this encounter Visit Diagnoses Diagnosis Preop cardiovascular exam- Primary Pre-operative cardiovascular examination Tobacco abuse Tobacco use disorder Lipid screening Screening for lipoid disorders documented in this encounter Care Teams Associate Publisher Relationship Specialty Start Date End Date Elton De La Fuente MD PCP - General Family Medicine 06/02/21 documented as of this encounter
--- OUTSIDE RECORDS SUMMARY | 2024-09-25 08:42 | XMS_ITS | Encounter Summary ---
Author Organization [facility] Address [address] [facility] [address] [place] [address] Care Team Providers Care Business Process Coordinator Name Role Phone Elton De La Fuente MD Primary Care Provider Reason for Visit * Reason Comments Follow-up After PFT Encounter Details Date Type Department Care Team (Late st Contact Info) Description 04/21/2022 9:00 AM CDT Office Visit [facility] Cardiology [address] [facility] [address] [place] [address] Brittany Payne NP [address] [facility] [address] [place] [address] COPD, mild (CMS/HCC) (HCC) (Primary [...] on file Legal Sex Male 6:34 PM CUTCH CLEANER Gender Identity Not on file Sexual Orientation Not on file 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 [facility] Cardiology [address] [place] [address] Date of Visit: 04/21/2022 Patient ID: Tramaine Marin Jr. 1970 Chief Complaint Patient presents with ??? Follow-up After PFT Tramaine Marin Jr. is a 51 y.o. male who was evaluated by Dr. Simth last year for preoperative assessment and returns to the office for follow-up regarding PFT's. History of Present Illness: Tramaine Marin Jr. is a 51 y.o. male with DJD, emphysema (based on patient's heavy smoking status and chest x-ray findings), tobacco abuse, history of cocaine abuse. 06/02/2021 initial evaluation-patient has been referred for preoperative cardiovascular evaluation.He denies any prior cardiovascular history including clinical CT, angina, heart failure or any arrhythmias. Patient [...] illicit drug use 03/18/2022 office visit with SOCIAL DIRECTOR: He underwent microdiskectomy last year but reports [...] now quit drinking. 04/21/2022 office visit with SOCIAL DIRECTOR: I sent him for PFTs at the [...] understanding. 04/21/2022 MICKEY Menendez- Nurse Practitioner with [facility] Cardiology This note is dictated and transcribed using Ntractive Direct Software. Extrusion Manager variancesmay occur. Despite proofreading, typographical errors may occur. documented in this encounter Plan of Treatment Not on file documented as of this encounter Visit Diagnoses Diagnosis COPD, mild (HCC)- Primary Tobacco abuse Tobacco use disorder documented in this encounter Care Teams Business Process Coordinator Relationship Specialty Start Date End Date Elton De La Fuente MD PCP - General Family Medicine 06/02/21 documented as of this encounter
--- OUTSIDE RECORDS SUMMARY | 2024-09-25 08:42 | XMS_ITS | Encounter Summary ---
Author Organization [facility] Healthcare Address [address] [place] [address] Care Team Providers Care Desolderer Name Role Phone Elton De La Fuente MD Primary Care Provider [phone] Encounter Details Date Type Department Care Team (Latest Contact Info) Description 07/23/2024 8:45 AM CDT Pre-Admission Testing 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 A rn plastic surgery will call to confirm arrival and surgery [...] card, advance directive or durable power of workers compensation attorney (if youhave one). Bring: eye glasses [...] these instructions, please call ROOSEVELT Bullock, at [phone] (M-F, 8AM-4:30PM) [facility] documented in this encounter [...] gran abs 0.0 0.0 - 0.1 K/cumm [facility] Lymphocyte abs 2.1 0.8 - 3.3 K/cumm [facility] Monocyte abs 0.7 0.2 - 0.8 K/cumm [facility] Eosinophil abs 0.2 0.0 - 0.5 K/cumm [facility] Basophil abs 0.0 0.0 - 0.1 K/cumm [facility] Neutrophil pct 64.7 % [facility] Comment: Interpretive Data Percent cell count reference ranges are not reported, since discordance with absolute values may lead to misinterpretation of CBC data. Current Interpretive Data was last revised on 2018. Imm gran pct 0.2 % [facility] Comment: Interpretive Data Percent cell count reference ranges are not reported, since discordance with absolute values may lead to misinterpretation of CBC data. Current Interpretive Data was last revised on 2018. Lymphocyte pct 24.8 % [facility] Comment: Interpretive Data Percent cell count reference ranges are not reported, since discordance with absolute values may lead to misinterpretation of CBC data. Current Interpretive Data was last revised on 2018. Monocyte pct 8.1 % [facility] Comment: Interpretive Data Percent cell count reference ranges are not reported, since discordance with absolute values may lead to misinterpretation of CBC data. Current Interpretive Data was last revised on 2018. Eosinophil pct 1.7 % [facility] Comment: Interpretive Data Percent cell count reference ranges are not reported, since discordance with absolute values may lead to misinterpretation of CBC data. Current Interpretive Data was last revised on 2018. Basophil pct 0.5 % [facility] Comment: Interpretive Data Percent cell count reference ranges are not reported, since discordance with absolute values may lead to misinterpretation of CBC data. Current Interpretive Data was last revised on 2018. Blood 07/23/2024 10:1 0 AM CDT 07/23/2024 10:10 AM CDT us Ara Robbins NP LAB BLOOD ORDERABLES Fi nal Result [facility] [address] Department [place] [address] * Vitamin D 25 hydroxy (07/23/2024 10:10 AM CDT) Pathologist [facility] Vitamin D 25-OH 38 30 - 80 ng/mL Blood 07/23/2024 10:1 0 AM CDT 07/23/2024 10:10 AM CDT Ara Robbins SHIPPING LEAD LAB BLOOD ORDERABLES Fi nal Result Performing Organization Address [facility] de Phone Number [facility] [address] [facility] [place] [address] * (ABNORMAL) Hemoglobin A1c (07/23/2024 10:10 AM CDT) [facility] Hgb A1C 5.7(H) 4.0 - 5.6 % Estimated Average Glucose 117 mg/dL [facility] Comment: The ADA recommends reporting an estimated Average Glucose (eAG) with all Hemoglobin A1c results using the equation derived from a study of 507 normal and diabetic adults. ??Minority populations were underrepresented and children were not included. ?? (Diabetes Care 31:1872-7271, 2008). ??The eAG is not equivalent to a fasting glucose. Blood 07/23/2024 10:1 0 AM CDT 07/23/2024 10:10 AM CDT Ara Robbins NP LAB BLOOD ORDERABLES Fi nal Result Performing Organization Address [facility] Co de Phone Number [facility] [address] [facility] [employer] [place], [place] [phone] * CBC with auto differential (07/23/2024 10:10 AM CDT) [facility] WBC 8.6 3.8 - 9.9 K/cumm Hgb 15.7 13.0 - 17.5 g/dL [facility] Hct 47.5 38.9 - 50.3 % [facility] Plt 184 150 - 400 K/cumm [facility] MPV 11.6 9.1 - 12.3 fL [facility] RBC 5.27 4.30 - 5.80 M/cumm [facility] MCV 90.1 81.3 - 96.4 fL [facility] MCH 29.8 27.1 - 33.3 pg [facility] MCHC 33.1 32.3 - 35.7 g/dL [facility] RDW CV 12.9 11.1 - 14.9 % [facility] RDW SD 42.5 35.7 - 48.1 fL [facility] NRBC abs 0.00 0.00 - 0.01 K/cumm [facility] Blood 07/23/2024 10:1 0 AM CDT 07/23/2024 10:10 AM CDT Ara Robbins NP LAB BLOOD ORDERABLES Fi nal Result Performing Organization Address [facility]/ZIP Co de Phone Number [facility] [address] Department [place] [address] * Type and screen (07/23/2024 9:54 AM CDT) Napoleon, indirect Negative ABO Rh O Positive [facility] Blood 07/23/2024 9:54 AM CDT 07/23/2024 10:24 AM CDT Narrative [facility] - 07/23/2024 11:28 AM CDT Is this test being ordered in advance for a procedure?->Yes Expected date of procedure:->08/13/24 Has the patient been transfused in the past 3 months?->No Ara Robbins NP LAB BLOOD BANK TEST ORD ERABLES Final Result Performing Organization Address City/[facility]/ZIP Co de Phone Number [facility] [address] Department [place] [address] documented in this encounter Visit [...] 09/18/2024 added in this encounter Care Teams Desolderer Relationship Specialty Start Date End Date Elton De La Fuente MD PCP - General Family Medicine 06/02/21 documented as of this encounter
--- OUTSIDE RECORDS SUMMARY | 2024-09-25 08:42 | XMS_ITS | Encounter Summary ---
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] Procedures IA ARTHRODESIS COMBINED TQ 1NTRSPC LUMBAR IA ARTHRODESIS CMBN TQ 1NTRSPC EACH ADDITIONAL IA POSTERIOR SEGMENTAL INSTRUMENTATION 3-6 VRT SEG IA INSJ BIOMCHN DEV INTERVERTEBRAL DSC SPC W/ARTHRD IA AUTOGRAFT SPINE SURGERY LOCAL FROM SAME INCISION L3-5 Decompressive Laminectomy, Posterior Lumbar Interbody Fusion using Zavation EZ Span Cage, Mathew Screws, Local Autograph and L4-5 Repeat Discectomy Kevin Brody MD [address] [facility] [address] [place] [address] Phone: tel: fax: Referral ID Status Reason Start Date Expiration Date Visits Re quested Visits Authorized [id number] 07/11/2024 1 1 Encounter Details Date Type Department Care Team (Late st Contact Info) Description 08/13/2024 7:26 AM STEELSCOPE OPERATOR Anesthesia Event [facility] Operating Room [address] [place] [id number] Jason Christianson MD [address] [place] [address] Ara Robbins, [place] [address] [place] [address] Anesthesia Record Procedure Summary Procedure Name Responsible [...] Reason: Discharge 08/13/24 0741 by Naomi Galvan, INJECTION MOLD TOOLING TECHNICIAN 08/14/24 1245 by Arin Cortez RN Urethral Catheter Placement Date: 08/13/24; Placement Time: 0742; Inserted by: IRMA Dougheryt; Type: Double-lumen, Non-latex; Balloon Size: 10 mL; [...] Time: 1143 08/13/24 0801 by Naomi Galvan, INJECTION MOLD TOOLING TECHNICIAN 08/13/24 1143 by Jason Christianson MD Wound [...] on file Legal Sex Male 6:34 PM STEELSCOPE OPERATOR Gender Identity Not on file Sexual Orientation Not on file 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 Procedure Summary Date: 08/13/24 Room / Location: [facility] 06 / [facility] Anesthesia Start: 07 Anesthesia Stop: [...] Nausea/Vomiting status: none No notable events documented. LSCOPE OPERATOR * Anesthesia Procedure Notes - Naomi Galvan CRNA - 08/13/2024 7:59 AM CSTAssociated Order(s): Airway Airway Patient location: OR Urgency: elective Indications for airway management: anesthesia Difficult airway: no Staff: Supervising provider: Jason Christianson MD Placed by: INJECTION MOLD TOOLING TECHNICIAN: Naomi Galvan CRNA Emergent airway documentation: Risks [...] with: silk tape Number of attempts: 1 LSCOPE OPERATOR * Anesthesia Preprocedure Evaluation - Jason [...] Cardiovascular + Hypertension Pertinent negatives: CAD and [place] Comments: Activated Sludge Attendant Dr. Smith; CURT 07/30/24; clearance in chart; [...] Allergen Reactions Sudafed [Pseudoephedrine] Other (See comments) [facility] Med List Status: Nurse Complete Set By: [...] Component Value Units Date/Time ECG 12 lead [[id number]] Resulted: 07/30/24 1022 Order Status: Completed Updated: [...] Medication protocol when under care of a INJECTION MOLD TOOLING TECHNICIAN Planned anesthesia: General Team communication plan: oral ET tube Induction: Induction: intravenous. Postoperative Plan: No postoperative mechanical ventilation intended. Patient's planned disposition post procedure is Outpatient. Informed Consent: Discussed plan with INJECTION MOLD TOOLING TECHNICIAN. Anesthesia plan and risks discussed with patient. Consent and Attending signature: I and/or my designee have discussed the anesthesia plan, benefits, possible alternatives, parental presence at time of induction (if indicated), and clinically relevant risks that may include dental injury, unintentional awareness, and/or other complications. The patient and/or parent/legal guardian understand, and agree to proceed. All questions answered. LSCOPE OPERATOR LSCOPE OPERATOR documented in this encounter Plan of Treatment Not on file documented as of this encounter Procedures Procedure Name Priority Date/Time Associated Diagnosis Comments IA AN PROCEDURE PLACEHOLDER Routine 08/13/2024 7:59 AM STEELSCOPE OPERATOR IA AN ELECTIVE ENDOTRACHEAL AIRWAY Routine 08/13/2024 7:59 AM STEELSCOPE OPERATOR documented in this encounter Results * IA AN ELECTIVE ENDOTRACHEAL AIRWAY, IA AN PROCEDURE PLACEHOLDER (08/13/2024 7:59 AM STEELSCOPE OPERATOR) Narrative Naomi Galvan CRNA - 08/13/2024 7:59 AM STEELSCOPE OPERATOR Naomi Galvan CRNA ? 08/13/2024 ??8:01 AM Airway Patient location: OR Urgency: elective Indications for airway management: anesthesia Difficult airway: no Staff: Supervising provider: Jason Christianson MD Placed by: INJECTION MOLD TOOLING TECHNICIAN: Naomi Galvan CRNA Emergent airway documentation: Risks [...] 0750, Anesthesia Intra-op Given 08/13/2024 7:50 AM STEELSCOPE OPERATOR 8 mg dexmedeTOMIDine (PRECEDEX) injection intravenous, As needed, Starting on Mon08/13/24 at 1014, Anesthesia Intra-op Given 08/13/2024 11:16 AM STEELSCOPE OPERATOR 8 mcg Given 08/13/2024 10:36 AM STEELSCOPE OPERATOR 8 mcg Given 08/13/2024 10:14 AM STEELSCOPE OPERATOR 8 mcg fentaNYL (SUBLIMAZE) preservative free injection intravenous, As needed, Starting on Mon08/13/24 at 0730, Anesthesia Intra-op Given 08/13/2024 8:03 AM STEELSCOPE OPERATOR 50 mcg Given 08/13/2024 7:30 AM STEELSCOPE OPERATOR 50 mcg HYDROmorphone (DILAUDID) injection intravenous, Administer over 2 Minutes, As needed, Starting on Mon08/13/24 at 0920, Anesthesia Intra-op Given 08/13/2024 11:18 AM STEELSCOPE OPERATOR 0.4 mg Given 08/13/2024 11:14 AM STEELSCOPE OPERATOR 0.4 mg Given 08/13/2024 10:22 AM STEELSCOPE OPERATOR 0.4 mg ketamine (KETALAR) 50 mg/5 mL (10 mg/mL) in sodium chloride 0.9% (premix) intravenous, As needed, Starting on Mon08/13/24 at 0753, Anesthesia Intra-op Given 08/13/2024 10:02 AM STEELSCOPE OPERATOR 10 mg Given 08/13/2024 9:08 AM STEELSCOPE OPERATOR 10 mg Given 08/13/2024 7:53 AM STEELSCOPE OPERATOR 10 mg lidocaine (cardiac) (XYLOCAINE) preservative free injection intravenous, As needed, Starting on Mon08/13/24 at 0734, Anesthesia Intra-op, Indications: Ventricular ArrhythmiasIndications:Ve ntricular Arrhythmias Given 08/13/2024 7:34 AM STEELSCOPE OPERATOR 5 mL lidocaine in dextrose 5% 2 g/250 mL (8 mg/mL) infusion (premix) intravenous, Continuous PRN, Starting on Mon08/13/24 at 0752, Anesthesia Intra-op Rate/Dose Change 08/13/2024 11:05 AM STEELSCOPE OPERATOR 1.5 mg/kg/hr 14.55 mL/hr New Bag 08/13/2024 7:52 AM STEELSCOPE OPERATOR 2 mg/kg/hr 19.4 mL/hr midazolam (VERSED) 1 mg/mL preservative free injection intravenous, Administer over 2 Minutes, As needed, Starting on Mon08/13/24 at 0726, Anesthesia Intra-op Given 08/13/2024 7:26 AM STEELSCOPE OPERATOR 2 mg ondansetron (ZOFRAN) injection intravenous, Administer over 2 Minutes, As needed, Starting on Mon08/13/24 at 1100, Anesthesia Intra-op Given 08/13/2024 11:00 AM STEELSCOPE OPERATOR 4 mg phenylephrine (ADRIANA-SYNEPHRINE) 1 mg/10 mL (100 mcg/mL) in sodium chloride 0.9% (premix) intravenous, As needed, Starting on Mon08/13/24 at 0758, Anesthesia Intra-op Given 08/13/2024 8:41 AM STEELSCOPE OPERATOR 100 mc g Given 08/13/2024 7:58 AM STEELSCOPE OPERATOR 200 mcg propofoL (DIPRIVAN) 10 mg/mL IV intravenous, As needed, Starting on Mon08/13/24 at 0734, Anesthesia Intra-op Given 08/13/2024 7:34 AM STEELSCOPE OPERATOR 150 mg propofoL (DIPRIVAN) 10 mg/mL IV intravenous, Continuous PRN, Starting on Mon08/13/24 at 0745, Anesthesia Intra-op New Bag 08/13/2024 9:47 AM STEELSCOPE OPERATOR 75 mcg/kg/min 37.305 mL/hr Given 08/13/2024 8:07 AM STEELSCOPE OPERATOR 40 mg New Bag 08/13/2024 7:45 AM STEELSCOPE OPERATOR 75 mcg/kg/min 37.305 mL/ hr rocuronium (ZEMURON) injection intravenous, As needed, Starting on Mon08/13/24 at 0735, Anesthesia Intra-op Given 08/13/2024 8:07 AM STEELSCOPE OPERATOR 10 mg Given 08/13/2024 7:35 AM STEELSCOPE OPERATOR 50 mg sodium chloride 0.9% infusion 30 mL/hr, intravenous, Continuous, Starting on Mon08/13/24 at 0645 New Bag 08/13/2024 9:55 AM STEELSCOPE OPERATOR Rate/Dose Verify 08/13/2024 7:26 AM STEELSCOPE OPERATOR 30 mL/h r New Bag 08/13/2024 7:11 AM STEELSCOPE OPERATOR 30 mL/hr 30 mL/hr sugammadex (BRIDION) 100 mg/mL intravenous solution intravenous, As needed, Starting on Mon08/13/24 at 1142, Anesthesia Intra-op Given 08/13/2024 11:42 AM STEELSCOPE OPERATOR 200 m g documented in this encounter Care Teams Cutter In Relationship Specialty Start Date End Date Elton De La Fuente MD PCP - General Family Medicine 06/02/21 documented as of this encounter
--- OUTSIDE RECORDS SUMMARY | 2024-09-25 08:42 | XMS_ITS | Encounter Summary ---
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] Procedures [place] ARTHRODESIS COMBINED TQ 1NTRSPC LUMBAR [place] ARTHRODESIS CMBN TQ 1NTRSPC EACH ADDITIONAL [place] POSTERIOR SEGMENTAL INSTRUMENTATION 3-6 VRT SEG [place] INSJ BIOMCHN DEV INTERVERTEBRAL DSC SPC W/ARTHRD [place] AUTOGRAFT SPINE SURGERY LOCAL FROM SAME INCISION L3-5 Decompressive Laminectomy, Posterior Lumbar Interbody Fusion using Zavation EZ Span Cage, Mathew Screws, Local Autograph and L4-5 Repeat Discectomy Kevin Brody MD [address] [address] Phone: tel: fax: Referral ID Status Reason Start Date Expiration Date Visits Re quested Visits Authorized [id number] 07/11/2024 1 1 Encounter Details Date Type Department Care Team (Late st Contact Info) Description 08/13/2024 7:30 AM PATIENT FINANCIAL SERVICES MANAGER - 08/13/2024 12:30 PM PATIENT FINANCIAL SERVICES MANAGER Surgery [facility] Operating Room [address] [place] [id number] Kevin Brody MD [address] [facility] [address], [place] [address] L3-5 Decompressive Laminectomy, Posterior Lumbar Interbody Fusion using Zavation EZ Span Cage, Mathew Screws, Local Autograph and L4-5 Repeat Discectomy Surgery Details Date/Time Status Location OR Service Patient Class Case Class Case Type Trauma Case? 08/13/2024 7:30 AM Posted [facility] OPERATING ROOM OR Orthopaedic Spine Outpatient in Bed Elective Panel 1 Procedure LRB Anes Op Region Wound Class Comments L3-5 Decompressive Laminectomy, Posterior Lumbar Interbody Fusion using Zavation EZ Span Cage, Mathew Screws, Local Autograph and L4-5 Repeat Discectomy N/A General Back Class I - Clean GRINDING AND SPRAYING SUPERVISOR, [place] 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 Not on file Not on file documented as of this encounter Last Filed Vital Signs Vital Sign Reading Time Taken Comments Blood Pressure 117/66 08/13/2024 12:25 PM PATIENT FINANCIAL SERVICES MANAGER Pulse 94 08/13/2024 12:30 PM PATIENT FINANCIAL SERVICES MANAGER Temperature 36.8 ??C (98.3 ??F) 08/13/2024 1 1:46 AM PATIENT FINANCIAL SERVICES MANAGER Respiratory Rate 14 08/13/2024 12:3 0 PM PATIENT FINANCIAL SERVICES MANAGER Oxygen Saturation 96% 08/13/2024 12: 30 PM PATIENT FINANCIAL SERVICES MANAGER Inhaled Oxygen Concentration - - Weight 82.9 kg (182 lb 12.2 oz) 024 6:00 AM PATIENT FINANCIAL SERVICES MANAGER Height 182.9 cm (6') 08/13/2024 6:00 AM PATIENT FINANCIAL SERVICES MANAGER Body Mass Index 24.79 08/13/2024 6:00 AM PATIENT FINANCIAL SERVICES MANAGER documented in this encounter Discharge Summaries * Margaux Root PA - 08/14/2024 10:11 AM CST Inpatient Discharge Summary BRIEF OVERVIEW Admitting Provider: Kevin Brody MD Discharge Provider: Kevin Brody MD Primary Care Physician at Discharge: Elton De La Fuente MD [phone] Admission Date: 08/13/2024 Discharge Date: 08/14/2024 Admission Location: [facility] Hospital Problems/Diagnoses: Principal Problem: Lumbar stenosis with [...] Status at Discharge: Full code Discharge Instructions: [facility] Dr. Kevin Brody MD, FACS [address] [place] [address], [place] [address] Email: [email or web address] SURGERY CARE DISCHARGE INSTRUCTIONS INCISION * [...] spasms Commonly known as: ZANAFLEX Outpatient Follow-Up: ENT FINANCIAL SERVICES MANAGER documented in this encounter Discharge Instructions * Discharge Instructions* Margaux Root PA - 08/14/2024 10:10 AM PATIENT FINANCIAL SERVICES MANAGER [facility] Dr. Kevin Brody MD, FACS [address] [place] [address], [place] [address] Email: [email or web address] AFTER SURGERY CARE DISCHARGE INSTRUCTIONS INCISION * [...] other questions or concerns? Call the office ENT FINANCIAL SERVICES MANAGER documented in this encounter Medications at Time [...] Equipment-Currently Using None Prior Function Level of [place] Independent with ADLs;Independent functional transfers;Independent with ambulation Lives With Significant other (works during the day but is taking a few days off. 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 Patient and significant other verbalized understanding ENT FINANCIAL SERVICES MANAGER * Kevin Brody MD - 08/14/2024 9:19 [...] oxycodone 5/325 mg p.o. q.4 hours p.r.n. ENT FINANCIAL SERVICES MANAGER * Faviola Boland, OT - 08/14/2024 8:40 AM CST Occupational Therapy Evaluation 08/14/24 0739 General Chart Reviewed Yes Session Type Evaluation [...] Equipment-Currently Using None Prior Function Level of [place] Independent with ADLs;Independent functional transfers;Independent with ambulation [...] activity;Therapeutic exercise OT Equipment Recommended (S) Shower chair;Histotechnologist;Long handled sponge OT Evaluation Complete Yes Multi-Disciplinary [...] completed via verbal instruction. Patient verbalized understanding ENT FINANCIAL SERVICES MANAGER * Sue Armijo, PT - 08/13/2024 3:41 PM CST Physical Therapy 08/13/24 1541 General PT Received On 08/13/24 Subjective Comment Pt with activity orders to initiate transfers and ambulation on POD 1, activity restricted to standing at bedside this date. Follow up for skilled PT evaluation on 08/14. ENT FINANCIAL SERVICES MANAGER ENT FINANCIAL SERVICES MANAGER documented in this encounter H&P Notes * [...] reveals 5/5 strength in deltoids, biceps, triceps, stenotypist, iliopsoas, hamstrings, dorsi and plantarflexors and extensor [...] NOTED 11/19/24. DLK Job ID/Internal Job ID: [id number] ENT FINANCIAL SERVICES MANAGER documented in this encounter Nursing Notes * Arin Cortez RN - 08/14/2024 12:58 PM CST Discharge instructions given to patient and his , both verbalized understanding. Patient discharged at 1255 ENT FINANCIAL SERVICES MANAGER documented in this encounter Miscellaneous Notes * Plan of Care - Leela Whitmore RN - 08/14/2024 12:58 PM CST DISPO: home with family. ENT FINANCIAL SERVICES MANAGER * Brief Op Note - Kevin Brody MD - 08/13/2024 8:04 AM CST Operative Progress Note Surgical Team: Surgeons and Role: * Kevin Brody MD - Primary Anesthesiologist: Jason Christianson MD TRANSFORMATION COACH: Nadege Vargas CRNA; Naomi Galvan CRNA Test Technician: El Diego RN Medical Office Representative: Hui Salas, RT; Maisha Liao RT Test Technician Relief: Dajuan Dutton RN Scrub Relief: Gisselle Lazaro RN Scrub: Angie Saleh RN GRINDING AND SPRAYING SUPERVISOR: Fely Cross CRNFA DATE OF SURGERY : [...] Implant Name Type Inv. Item Serial No. Cruller Maker Lot No. [id number] No. Used Action [employer] Stimulan Rapid Cure Kit Paste Turf Grower 5cc 12.5cc Bone Void 620-005 - [id number] [employer] Stimulan Rapid Cure Kit Paste Turf Grower 5cc 12.5cc Bone Void 620-005 Biocomposites [id number] N/A 1 Implanted [employer] Cage Spinal Lumbar 10 Degree Tlif Expandable 7-11.5mm Titanium 360- [id number] - [id number] [employer] Cage Spinal Lumbar 10 Degree Tlif Expandable 7-11.5mm Titanium [id number] [employer] N/A 2 Implanted JOB SPINE 4.5mm 35mm Polyaxial Spine Screw Bone Deformity [id number] - [id number] JOB SPINE 4.5mm 35mm Polyaxial Spine Screw Bone Deformity 3001- 55968 Job Spine N/A 6 Implanted JOB SPINE 4.5mm 75mm Contour Ulises Spinal Cocr [id number] - [id number] JOB SPINE 4.5mm 75mmContour Ulises Spinal Cocr [id number] Job Spine N/A 2 Implanted JOB SPINE 26mm Semiadjustable Transverse Spine Connector Ulises Posterior 3001- [id number] - [id number] JOB SPINE 26mm Semiadjustable Transverse Spine Connector Ulises Posterior [id number] Job Spine N/A 1 Implanted JOB SPINE 32mm Semiadjustable Transverse Spine Connector Ulises Posterior 3001- [id number] - [id number] JOB SPINE 32mm Semiadjustable Transverse Spine Connector Ulises Posterior [id number] [place] Spine N/A 1 Implanted Blood/Blood Products Transfused: 0 mls Complications: None Condition on Discharge from the operating room was stable Kevin Brody MD Date: 08/13/2024 Time: 11:30 AM No Resident involved on case ENT FINANCIAL SERVICES MANAGER * Op Note - Kevin Brody MD [...] concluding atL4 was then removed with a [employer] spine cutter. The prior laminectomy defect on [...] LOSS 250 mL. Job ID/Internal Job ID: [id number] ENT FINANCIAL SERVICES MANAGER documented in this encounter Plan of Treatment Scheduled Orders Name Type Priority Associated Diagnoses Order Schedule Surgical pathology Pathology and Cytology Timed Pseudoclaudication syndrome Release Upon Ordering for 1 Occurrences starting 08/13/2024 documented as of this encounter Procedures Procedure Name Priority Date/Time Associated Diagnosis Comments CBC WITHOUT DIFFERENTIAL Routine 08/14/2024 7:13 AM PATIENT FINANCIAL SERVICES MANAGER FL FLUOROSCOPY < 1 HOUR IP Routine 08/13/2024 11:08 AM PATIENT FINANCIAL SERVICES MANAGER XR SPINE LUMBAR 2 OR 3 VIEWS IP Routine 08/13/2024 11:08 AM PATIENT FINANCIAL SERVICES MANAGER FUSION LUMBAR - POSTERIOR 2 LEVELS 08/13/2024 7:30 AM PATIENT FINANCIAL SERVICES MANAGER Pseudoclaudication syndrome B CHECK SAMPLE STAT 08/13/2024 6:59 AM PATIENT FINANCIAL SERVICES MANAGER NEURO MR OUTSIDE REFERENCE Routine 03/03/2024 12:00 AM CDT NEURO MR OUTSIDE REFERENCE Routine 01/26/2024 12:00 AM CDT documented in this encounter Results * (ABNORMAL) CBC without differential (08/14/2024 7:13 AM PATIENT FINANCIAL SERVICES MANAGER) WBC 16.5(H) 3.8 - 9.9 K/cumm Hgb 14.5 13.0 - 17.5 g/dL [facility] Hct 43.7 38.9 - 50.3 % [facility] Plt 169 150 - 400 K/cumm [facility] MPV 12.0 9.1 - 12.3 fL [facility] RBC 4.87 4.30 - 5.80 M/cumm [facility] MCV 89.7 81.3 - 96.4 fL [facility] MCH 29.8 27.1 - 33.3 pg [facility] MCHC 33.2 32.3 - 35.7 g/dL [facility] RDW CV 13.3 11.1 - 14.9 % [facility] RDW SD 44.0 35.7 - 48.1 fL [facility] NRBC abs 0.00 0.00 - 0.01 K/cumm [facility] Blood 08/14/2024 7:13 AM PATIENT FINANCIAL SERVICES MANAGER 08/14/2024 7:51 AM PATIENT FINANCIAL SERVICES MANAGER Kevin Brody MD LAB BLOOD ORDERABLES Suzie l Result [facility] [address] [place] [address] * [place] Fluoroscopy < 1 Hour (08/13/2024 11:08 AM PATIENT FINANCIAL SERVICES MANAGER) Narrative [facility] - 08/13/2024 11:09 AM PATIENT FINANCIAL SERVICES MANAGER The images from this study are not interpreted by Radiology. ??Please refer to the physician's procedure / OR operative note. Kevin Brody MD IMG FLUOROSCOPY PROCEDURE S Final Result Performing Organization Address [facility]/ZIP Co de Phone Number [facility] * XR Spine Lumbar 2 or 3 Views (08/13/2024 11:08 AM PATIENT FINANCIAL SERVICES MANAGER) Anatomical Region Laterality Modality Spine N/A Computed Radiogr aphy 08/13/2024 11:3 5 AM PATIENT FINANCIAL SERVICES MANAGER Impressions 08/13/2024 11:35 AM PATIENT FINANCIAL SERVICES MANAGER FINDINGS/IMPRESSION: 6 intraoperative fluoroscopic images are submitted for review. Fusion L4-L5 vertebral bodies. Postoperative changes of L3-L5 posterior fusion and decompression with L3-L4 interbody fusion device placement. Hardware is grossly intact. Please refer to the dedicated operative report for complete evaluation of real-time findings. Electronically signed by: Justus Toledo M.D. Narrative 08/13/2024 11:35 AM PATIENT FINANCIAL SERVICES MANAGER EXAM: XR SPINE LUMBAR 2 OR 3 [...] esult * Check Sample (08/13/2024 6:59 AM PATIENT FINANCIAL SERVICES MANAGER) ABO Rh O Positive MBC HCLL OTHER 08/13/2024 6:59 AM PATIENT FINANCIAL SERVICES MANAGER 08/13/2024 7:23 AM PATIENT FINANCIAL SERVICES MANAGER us Ara Robbins COMPANION LAB BLOOD ORDERABLES Fi nal Result Performing Organization Address City/[facility]/ZIP Co de Phone Number [facility] [address] [place] [address] [facility] * Neuro MR Outside Reference (03/03/2024 12:00 AM CDT) Narrative RAD_PACS_OUTSIDE_FILM_[facility] - 08/13/2024 7:45 AM PATIENT FINANCIAL SERVICES MANAGER This order has been auto-finalized and does not contain a result. us Provider Transcribed Order IMG MRI PROCEDURES Fi nal Result RAD_PACS_OUTSIDE_FILM_[facility] * Neuro MR Outside Reference (01/26/2024 12:00 AM CDT) Narrative [facility]_PACS_OUTSIDE_FILM_[facility] - 08/13/2024 7:42 AM PATIENT FINANCIAL SERVICES MANAGER This order has been auto-finalized and does not contain a result. us Provider Transcribed Order IMG MRI PROCEDURES Fi nal Result RAD_PACS_OUTSIDE_FILM_[facility] documented in this encounter Visit Diagnoses [...] Pre-Emptive AnalgesiaIndications:Pre-Emptive Analgesia Given 08/13/2024 7:10 AM PATIENT FINANCIAL SERVICES MANAGER 1,000 mg acetaminophen (TYLENOL) tablet 1,000 mg 1,000 mg, oral, Every 6 hours scheduled, First dose on Mon08/13/24 at 1530, Indications: PainIndications:Pain Given 08/14/2024 8:43 AM PATIENT FINANCIAL SERVICES MANAGER 1,000 mg Given 08/14/2024 4:29 AM PATIENT FINANCIAL SERVICES MANAGER 1,000 mg Given 08/13/2024 8:48 PM PATIENT FINANCIAL SERVICES MANAGER 1,000 mg baclofen (LIORESAL) tablet 10 mg 10 mg, oral, Every 8 hours scheduled, First dose on Mon08/13/24 at 1530, Indications: Muscle spasmIndications:Muscle spasm Given 08/14/2024 4:29 AM PATIENT FINANCIAL SERVICES MANAGER 10 mg Given 08/13/2024 8:48 PM PATIENT FINANCIAL SERVICES MANAGER 10 mg Given 08/13/2024 4:05 PM PATIENT FINANCIAL SERVICES MANAGER 10 mg BUPivacaine-EPINEPHrine (MARCAINE with EPI) 0.5 %-1:200,000 preservative free injection As needed, Starting on Mon08/13/24 at 0804, Intra-Op Given 08/13/2024 8:04 AM PATIENT FINANCIAL SERVICES MANAGER 10 mL Surgical Site ceFAZolin (ANCEF) 1,000 mg in sodium chloride 0.9% 1,000 mL solution As needed, Starting on Mon08/13/24 at 0824, Intra-Op Given 08/13/2024 8:24 AM PATIENT FINANCIAL SERVICES MANAGER 1,000 mL Surgical Site dexAMETHasone (DECADRON) 4 mg/mL injection Administer over 2 Minutes, As needed, Starting on Mon08/13/24 at 0828, Intra-Op Given 08/13/2024 11:11 AM PATIENT FINANCIAL SERVICES MANAGER 10 mg Surgical Site dimenhyDRINATE (DRAMAMINE) tablet 25 mg 25 mg, oral, Once, On Mon08/13/24 at 0645, For 1 dose, Pre-Op, Indications: Prevention of Nausea and VomitingIndications:Prevention of Nausea and Vomiting Given 08/13/2024 7:10 AM PATIENT FINANCIAL SERVICES MANAGER 25 mg diphenhydrAMINE (BENADRYL) tab/cap 25 mg 25 mg, oral, Nightly PRN, sleep, Starting on Mon08/13/24 at 1644 docusate sodium (COLACE) capsule 100 mg 100 mg, oral, 2 times daily, First dose on Mon08/13/24 at 2100, Hold for diarrhea, Indications: constipationIndications:constipa tion Given 08/14/2024 8:43 AM PATIENT FINANCIAL SERVICES MANAGER 100 mg Given 08/13/2024 8:48 PM PATIENT FINANCIAL SERVICES MANAGER 100 mg fentaNYL (SUBLIMAZE) preservative free injection 50 mcg 50 mcg, intravenous, Once as needed, breakthrough pain, Starting on Mon08/13/24 at 1205, For 1 dose, Phase I, Administer for uncontrolled or increasing pain while in PACU only. Given 08/13/2024 1:54 PM PATIENT FINANCIAL SERVICES MANAGER 50 mcg gabapentin (NEURONTIN) capsule 300 mg 300 mg, oral, Once, On Mon08/13/24 at 0645, For 1 dose, Pre-Op, Indications: Pre-Emptive AnalgesiaIndications:Pre-Emptive Analgesia Given 08/13/2024 7:10 AM PATIENT FINANCIAL SERVICES MANAGER 300 mg gentamicin (GARAMYCIN) injection As needed, Starting on Mon08/13/24 at 0827, Intra-Op Given 08/13/2024 8:27 AM PATIENT FINANCIAL SERVICES MANAGER 3 mL Surgical Site HYDROmorphone (DILAUDID) injection [...] more., Indications: PainIndications:Pain Given 08/13/2024 12:20 PM PATIENT FINANCIAL SERVICES MANAGER 0.2 mg HYDROmorphone (DILAUDID) injection 0.4 mg [...] more., Indications: PainIndications:Pain Given 08/13/2024 1:23 PM PATIENT FINANCIAL SERVICES MANAGER 0.4 mg Given 08/13/2024 1:10 PM PATIENT FINANCIAL SERVICES MANAGER 0.4 mg Given 08/13/2024 12:32 PM PATIENT FINANCIAL SERVICES MANAGER 0.4 mg lidocaine in dextrose 5% 2 g/250 mL (8 mg/mL) infusion (premix) 1.5 mg/kg/hr ? 77.6 kg Roach weight (14.55 mL/hr), 8 mg/mL, intravenous, Continuous, Starting on Mon08/13/24 at 1230, Until Mon08/14/24 at 1658, Indications: Pain, Call MD for symptoms of toxicity (ringing in ears, metallic taste, somnolence, numb lips) or lidocaine level greater than 5., RoutineIndications:Pa in Restarted 08/13/2024 12:16 PM PATIENT FINANCIAL SERVICES MANAGER 1.5 mg/kg/hr 14.55 mL/hr LORazepam (ATIVAN) 0.5 mg in sodium chloride 0.9% (further dilution required) injection 0.5 mg, intravenous, Every 6 hours PRN, anxiety, Starting on Mon08/13/24 at 1458, Withdraw ordered dose amount then dilute with equal volume of 0.9% sodium chloride. Administer total volume to patient. Do not exceed a rate of 2 mg/minute. Given 08/13/2024 10:21 PM PATIENT FINANCIAL SERVICES MANAGER 0.5 mg microfibrillar collagen (AVITENE) powder As needed, Starting on Mon08/13/24 at 0832, Intra-Op, Indications: Bleeding from WoundIndications:Blee ding from Wound Given 08/13/2024 8:32 AM PATIENT FINANCIAL SERVICES MANAGER 1 g Surgical Site morphine preservative free injection Administer over 4 Minutes, As needed, Starting on Mon08/13/24 at 0830, Intra-Op Given 08/13/2024 8:30 AM PATIENT FINANCIAL SERVICES MANAGER 4 mg Surgical Site nicotine (NICODERM CQ) 14 mg patch 24 hour 1 patch 1 patch, transdermal, Administer over 24 Hours, Daily, First dose on Mon08/13/24 at 1715, Apply a new patch every 24 hours to a clean, dry, hairless site on the upper arm or hip. Rotate site. Medication Applied 08/14/2024 8:44 AM PATIENT FINANCIAL SERVICES MANAGER 1 patch Left Shoulder Medication Applied 08/13/2024 6:09 PM PATIENT FINANCIAL SERVICES MANAGER 1 patch Right Arm oxyCODONE (ROXICODONE) tablet 5 mg 5 mg, oral, Every 4 hours while awake, First dose on Mon08/13/24 at 1530, Indications: PainIndications:Pain Given 08/14/2024 10:11 AM PATIENT FINANCIAL SERVICES MANAGER 5 mg Given 08/14/2024 4:29 AM PATIENT FINANCIAL SERVICES MANAGER 5 mg Given 08/13/2024 8:48 PM PATIENT FINANCIAL SERVICES MANAGER 5 mg oxyCODONE (ROXICODONE) tablet 5 mg 5 mg, oral, As needed, 1st line for pain, Starting on Mon08/13/24 at 1205, For 2 doses, Phase I, 1st ORAL choice for pain, when the patient is able to tolerate PO medications. May repeat in 1 hour if pain is uncontrolled or increasing after 1st dose., Indications: PainIndications:Pain Given 08/13/2024 2:30 PM PATIENT FINANCIAL SERVICES MANAGER 5 mg Given 08/13/2024 1:23 PM PATIENT FINANCIAL SERVICES MANAGER 5 mg povidone-iodine (BETADINE PREP) 5 % ophthalmic solution As needed, Starting on Mon08/13/24 at 1104, Intra-Op Given 08/13/2024 11:04 AM PATIENT FINANCIAL SERVICES MANAGER 30 mL Surgical Site sodium chloride 0.9% infusion 30 mL/hr, intravenous, Continuous, Starting on Mon08/13/24 at 0645 New Bag 08/13/2024 9:55 AM PATIENT FINANCIAL SERVICES MANAGER Rate/Dose Verify 08/13/2024 7:26 AM PATIENT FINANCIAL SERVICES MANAGER 30 mL/h r New Bag 08/13/2024 7:11 AM PATIENT FINANCIAL SERVICES MANAGER 30 mL/hr 30 mL/hr thrombin-recombinant 5,000 unit topical solution As needed, Starting on Mon08/13/24 at 1034, Intra-Op Given 08/13/2024 10:34 AM PATIENT FINANCIAL SERVICES MANAGER 8,000 Units Surgical Site vancomycin (VANCOCIN) solution As needed, Starting on Mon08/13/24 at 0825, Intra-Op Given 08/13/2024 11:11 AM PATIENT FINANCIAL SERVICES MANAGER 500 mg Surgical Site vancomycin 1,000 mg/200 mL in dextrose 5% (premix) 1,000 mg 1,000 mg, intravenous, Administer over 60 Minutes, Once, On Mon08/13/24 at 1900, For 1 dose, Administer 12 hours after last pre-operative dose., Indications: Prophylaxis, SurgicalIndications:Prophyla xis, Surgical New Bag 08/13/2024 6:28 PM PATIENT FINANCIAL SERVICES MANAGER 1,000 mg vancomycin 1500 mg/250 mL in sodium chloride 0.9% (premix) 1,500 mg 1,500 mg, intravenous, Administer over 90 Minutes, Once, On Mon08/13/24 at 0645, For 1 dose, Pre-Op, Indications: Prophylaxis, SurgicalIndications:Prophyla xis, Surgical New Bag 08/13/2024 7:10 AM PATIENT FINANCIAL SERVICES MANAGER 1,500 mg documented in this encounter Discontinued Medications Medication Sig Discontinue Reason Start Date End Da te ibuprofen (ADVIL,MOTRIN) 800 mg tablet Take 1 tablet (800 mg total) by mouth 3 (three) times a day as needed for pain Stop Taking at Discharge 02/25/2022 08/14/2024 documented as of this encounter Active and Recently Administered Medications Times are shown in PATIENT FINANCIAL SERVICES MANAGER. Scheduled Medication Order 08/12/2024 08/13/2024 08/14/2024 acetaminophen [...] infusion (premix) 1.5 mg/kg/hr ? 77.6 kg Roach weight (14.55 mL/hr), 8 mg/mL, intravenous, Continuous, [...] 08/13/2024 documented in this encounter Care Teams Silver Service Waiter Relationship Specialty Start Date End Date Elton De La Fuente MD PCP - General Family Medicine 06/02/21 documented as of this encounter
--- OUTSIDE RECORDS SUMMARY | 2024-09-25 08:42 | XMS_ITS | Encounter Summary ---
Author Organization [facility] Address [address] [place] [address] Care Team Providers Care Bobbin Winder Tender Name Role Phone Elton De La Fuente MD Primary Care Provider Reason for Visit * Reason Comments New Patient Surgical Clearance back surgery Encounter Details Date Type Department Care Team (Latest Contact Info) Description 06/02/2021 3:00 PM CDT Office Visit [facility] Cardiology [address] [place] [address] Hunter Smith MD [address] [id number] Preop cardiovascular exam (Primary Dx); Dyslipidemia; Tobacco [...] on file Legal Sex Male 6:34 PM RATING SPECIALIST Gender Identity Not on file Sexual Orientation Not on file 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 Patient [...] Value Date TRIG 151 (H) 03/30/2020 Chest [id number] lungs consistent with emphysema. 04/02/2021 [facility] EKG-sinus rhythm with occasional PACs; leftward axis, incomplete right bundle branch block. 04/02/2021 [facility] EKG-sinus rhythm, incomplete RBBB. 06/02/2021 Lipids-total [...] have any known prior cardiachistory including clinical OH, angina or heart failure. EKG shows sinus [...] was used to complete this document, therefore, tile layer supervisor variances may occur. documented in this encounter [...] 06/28/2021 added in this encounter Care Teams Bobbin Winder Tender Relationship Specialty Start Date End Date Elton De La Fuente MD PCP - General Family Medicine 06/02/21 documented as of this encounter
--- OUTSIDE RECORDS SUMMARY | 2024-09-25 08:42 | XMS_ITS | Encounter Summary ---
Author Organization [facility] Healthcare Address [address] [place] [address] Care Team Providers Care Print Buyer Name Role Phone Elton De La Fuente MD Primary Care Provider [phone] Reason for Visit * Reason Comments Hip Pain Encounter Details Date Type Department Care Team (Late st Contact Info) Description 06/28/2021 11:21 AM CDT - 06/28/2021 5:13 PM CDT Emergency [facility] Emergency Department [address] [place] [address] Stuart Pro MD [address] [facility] [address] [place] [address] Right sided sciatica (Primary Dx) [...] on file 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 * Sciatica (Discharge Care) (Micronesian) documented in this encounter Medications at Time [...] 1:15 PM CDT) Color, ur Yellow Yellow [facility] Clarity, ur Clear Clear [facility] Specific gravity, ur 1.010 1.003 - 1.030 [facility] pH, urine 6.5 [facility] Protein, ur ql Negative Negative [facility] Glucose, ur ql Negative Negative [facility] Ketones, ur Negative Negative [facility] Bilirubin, ur Negative Negative [facility] Blood, ur Negative Negative [facility] Urobilinogen, ur <2.0 <2.0 mg/dL [facility] Nitrite, ur Negative Negative [facility] Leukocyte esterase, ur Negative Negative [facility] UA reflex comment Reflex conditions for microscopic UA and culture not met. [facility] Urine 06/28/2021 1:15 PM CDT 06/28/2021 1:28 PM CDT Narrative [facility] - 06/28/2021 1:52 PM CDT ?? Urine pH is affected by diet, medications, systemic acid-base disturbances, and renal tubular function. ??pH may affect urinary stone formation. ??For example, urine pH below 6.0 may help reduce the tendency for calcium phosphate stones and pH greater than 6.0 may reduce the tendency for uric acid stone formation. Source: GuidePal. Last revised 10-05-2017 Stuart Pro MD LAB MICROBIOLOGY - GENERAL O RDERABLES Final Result Performing Organization Address [facility]/ZIP Co de Phone Number [facility] [address] Department [place] [address] * POCT glucose (06/28/2021 1:13 PM CDT) Glucose, POC 88 70 - 140 mg/dL [facility] Comment: For Glucose values <35 mg/dl when Hematocrit is >60 mg/dl,the test may not accurately detect significant hypoglycemia,and testing in the Laboratory should be considered if clinically indicated. Blood 06/28/2021 1:13 PM CDT 06/28/2021 1:13 PM CDT us Stuart Pro MD LAB POCT ORDERABLES - DEVICE Final Result Performing Organization Address [facility] Co de Phone Number [facility] [address] [place] [address] documented in this encounter Visit Diagnoses Diagnosis [...] 06/28/2021 documented in this encounter Care Teams Print Buyer Relationship Specialty Start Date End Date Elton De La Fuente MD PCP - General Family Medicine 06/02/21 documented as of this encounter
--- OUTSIDE RECORDS SUMMARY | 2024-09-25 08:43 | XMS_ITS | Encounter Summary ---
Author Organization [facility] Medical Group Address [address] [place] [address] Care Team Providers Care Ditch Digger Name Role Phone Elton De La Fuente MD Primary Care Provider Encounter Details Date Type Department Care Team (Late st Contact Info) Description 10/15/2019 Telephone [facility] Orthopedics and Sports Medicine [address] [place] [address] Carmen Cole MA Social History Tobacco Use Types Packs/Day Years Used Date Smoking Tobacco: Every Day Cigarettes 0.1 20 Alcohol Use Standard Drinks/Week Comments Not Currently 0 (1 standard drink = 0.6 oz pur e alcohol) Recovering alcoholic-whiskey Sex and Gender Information Value Date Recorded Sex Assigned at Not on file 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 [facility] auth # [id number]; valid 10/17/19-12/01/19; exp 45 days. ION ASSEMBLER * Telephone Encounter - Carmen Cole MA - 10/15/2019 9:04 AM CST Information has been sent to clinical review with [facility] for pending approval for CPT 24679 MRI L-spine. Case # [id number] ION ASSEMBLER documented in this encounter Plan of Treatment Not on file documented as of this encounter Visit Diagnoses Not on filedocumented in this encounter Care Teams Ditch Digger Relationship Specialty Start Date End Date lEton De La Fuente MD PCP - General Family Medicine 09/04/19 12/03/19 documented as of this encounter
--- OUTSIDE RECORDS SUMMARY | 2024-09-25 08:43 | XMS_ITS | Encounter Summary ---
Author Organization [facility] Healthcare Address [address] [place] [address] Care Team Providers Care Wholesale Diamond Broker Name Role Phone Kely Tijerina NP Primary Care Provider [phone] Encounter Details Date Type Department Care Team (Late st Contact Info) Description 12/04/2019 8:29 AM CDT - 12/04/2019 9:31 AM CDT Hospital Encounter [facility] OP INTERIM Gloria Murdock MD [address] [facility] [address] [place] [address] Discharge Disposition: Discharge to home or self care Social History Tobacco Use Types Packs/Day Years Used Date Smoking Tobacco: Every Day Cigarettes 0.1 20 Alcohol Use Standard Drinks/Week Comments Not Currently 0 (1 standard drink = 0.6 oz pur e alcohol) Recovering alcoholic-whiskey Sex and Gender Information Value Date Recorded Sex Assigned at Not on file Legal Sex Male 6:34 PM [place] GOLD ATTENDANT Gender Identity Not on file Sexual Orientation Not on file 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
--- OUTSIDE RECORDS SUMMARY | 2024-09-25 08:43 | XMS_ITS | Encounter Summary ---
Author Organization [facility] Healthcare Address [address] [place] [address] Care Team Providers Care Promotions Specialist Name Role Phone Kely Tijerina NP Primary Care Provider [phone] Encounter Details Date Type Department Care Team (Late st Contact Info) Description 03/30/2020 1:57 PM CDT - 03/30/2020 6:19 PM CDT Hospital Encounter [facility] Emergency Department [address] [place] [address] Unknown, Keith Johnson PA [facility] [place] [address] Discharge Disposition: Discharge to home or self care Social History Tobacco Use Types Packs/Day Years Used Date Smoking Tobacco: Every Day Cigarettes 0.1 20 Alcohol Use Standard Drinks/Week Comments Not Currently 0 (1 standard drink = 0.6 oz pur e alcohol) Recovering alcoholic-whiskey Sex and Gender Information Value Date Recorded Sex Assigned at Not on file 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 Age: 49 ?Sex: Male ? MR#: [id number] ?? Loc: ? RADIOLOGY REPORT ?? Order #[id number] ?? CT Scan ? CT Abd/Pelvis W [...] T: ??03/30/2020 4:57 PM ? Report ID: [id number] ?? Reading Location: ??[id number] ? REPORT ELECTRONICALLY SIGNED IN OTHER VENDOR SYSTEM ?? Resulting Agency Comment E Procedure Note Alirio Cole DO - 03/30/2020 Patient Name: TRAMAINE MARIN Dr: Keith Giron PA-C, D.O.B: 1970 Exam Date: 03/30/20 1620 Age: 49 Sex: Male MR#: [id number] Loc: RADIOLOGY REPORT Order #[id number] CT Scan CT Abd/Pelvis W IV Contrast [...] Alirio Cole D.O. PS: PS Report ID: [id number] Reading Location: [place] [address] REPORT ELECTRONICALLY SIGNED IN OTHER VENDOR SYSTEM [...] ?? Age: 49 ?Sex: Male ? MR#: [id number] ?? Loc: ? RADIOLOGY REPORT ?? Order #[id number] ?? Radiology ? Chest 1 View Portable [...] T: ??03/30/2020 4:09 PM ? Report ID: [id number] ?? Reading Location: ??[id number] ? REPORT ELECTRONICALLY SIGNED IN OTHER VENDOR SYSTEM ?? Resulting Agency Comment E Procedure Note Refugio Michel MD - 03/30/2020 Patient Name: TRAMAINE MARIN JROrdering Dr: Keith Giron PA-C, D.O.B: 1970 Exam Date: 03/30/20 1552 Age: 49 Sex: Male MR#: [id number] Loc: RADIOLOGY REPORT Order #[id number] Radiology Chest 1 View Portable Signed EXAM [...] Refugio Michel M.D. LB: SHYLA Report ID: [id number] Reading Location: [id number] REPORT ELECTRONICALLY SIGNED IN OTHER VENDOR SYSTEM Keith TALYOR IMG XR PROCEDURES Final Result * (ABNORMAL) URINALYSIS, COMPLETE W/REFLEX TO CULTURE (03/30/2020 3:30 PM CDT) Ur Collection Type CLEAN CATCH [facility] Ur Culture Indicated? C S NOT INDICATED [facility] Urine Color YELLOW YELLOW [facility] Urine Clarity CLEAR [facility] Urine Glucose (UA) NORMAL NORMAL mg/dL [facility] Urine Bilirubin NEGATIVE NEGATIVE mg/dl [facility] Urine Ketones NEGATIVE NEGATIVE mg/dL [facility] Ur Specific [place] 1.030(H) 1.005 - 1.025 [facility] Urine Blood 0.2(A) NEGATIVE mg/dl [facility] Urine pH 5.0 5.0 - 8.0 [facility] Urine Protein 30(A) NEGATIVE mg/dL [facility] Urine Urobilinogen 2(A) NORMAL mg/dL [facility] Urine Nitrite NEGATIVE NEGATIVE [facility] Ur Leukocyte Esterase NEGATIVE NEGATIVE Kinsey/ul [facility] Ur Microscopic Review Indicated or Ordered [facility] Urine RBC 18 0 - 2 /HPF [facility] Urine WBC 3 0 - 2 /HPF [facility] Urine Mucus RARE /LPF [facility] 03/30/2020 3:30 PM CDT 03/30/2020 3:55 PM CDT Narrative [facility] - 03/30/2020 4:11 PM CDT Indication(s) for ordering ?? Delirium/malaise/lethargy am Clean catch Resulting Agency Comment ER Keith TAYLOR LAB URINE ORDERABLES Final Res ult [address] [phone] * (ABNORMAL) TNI with LIPID PANEL (03/30/2020 3:29 PM CDT) Troponin I <0.300 0.000 - 0.300 ng/mL [facility] Comment: Reference using JARRETT Chemiluminescence ? Negative: Repeat in 4-6 hours as indicated. Triglycerides 151(H) 0 - 149 mg/dL [facility] Comment: National Lipid Association/NCEP Guidelines: ?? Normal ?< 150 mg/dL ?? Borderline high ?? 150-199 mg/dL ?? High ?200-499 mg/dL ?? Very High ? >=500 mg/dL Cholesterol 203(H) 0 - 199 mg/dL [facility] Comment: National Lipid Association/NCEP Guidelines: Desirable ? < 200 mg/dL Borderline high: ??200-239 mg/dL High Risk: ?>=240 mg/dL HDL Cholesterol 46 mg/dL [facility] Comment: Reference Ranges: ? Males: >=40 mg/dL ? Females: >=50 mg/dL LDL Cholesterol, Calc 127 0 - 129 mg/dL [facility] Comment: National Lipid Association/NCEP Guidelines: ??Optimal ? < 100 mg/dL ??Near Optimal ?100-129 mg/dL ??Borderline high 130-159 mg/dL ??High ?>=160 mg/dL Cholesterol/HDL Ratio 4.4 [facility] Comment: Optimal ??< 3.5:1 High ? > 5:1 03/30/2020 3:29 PM CDT 03/30/2020 3:33 PM CDT Narrative Resulting Agency Comment ER us Keith TAYLOR LAB BLOOD ORDERABLES Final Res ult [facility] [address] [place] [address], [facility] [phone] * (ABNORMAL) Comprehensive metabolic panel (03/30/2020 3:29 PM CDT) Sodium 144 135 - 145 mmol/L [facility] Potassium 5.3(H) 3.3 - 5.1 mmol/L [facility] Chloride 102 96 - 108 mmol/L [facility] Carbon Dioxide 30 22 - 32 mmol/L [facility] Anion Gap 12 7 - 16 [facility] Glucose 106(H) 70 - 100 mg/dL [facility] BUN 18 8 - 25 mg/dL [facility] Creatinine 1.0 0.5 - 1.3 mg/dL [facility] Comment: NOTE: Estimated GFR (Cockroft-Gault) will NOT be calculated unless patient Height and Weight were entered. Also, Kidney Disease Stage (GFR) and Estimated GFR (Cockroft-Gault) will NOT be calculated if Creatinine result is <0.2. Kidney Disease Stage 84 mL/MIN [facility] Comment: NOTE; ??The GFR is an estimated [...] on dialysis Est GFR (Cockcroft-G) 101 ml/MIN [facility] Comment: Estimated GFR(Cockroft-Gault)is used to calculate patient medication dosage Calcium 10.5(H) 8.6 - 10.3 mg/dL [facility] Total Protein 8.1 6.4 - 8.3 g/dL [facility] Albumin 5.0 3.5 - 5.0 g/dL [facility] Globulin 3.1 2.3 - 3.5 gm/dL [facility] Albumin/Globulin Ratio 1.6 1.1 - 1.8 [facility] Total Bilirubin 0.4 0.0 - 1.2 mg/dL [facility] AST 21 0 - 40 U/L [facility] ALT 24 0 - 41 U/L [facility] Alkaline Phosphatase 97 40 - 129 U/L [facility] 03/30/2020 3:29 PM CDT 03/30/2020 3:33 PM CDT Narrative Resulting Agency Comment ER Keith TAYLOR LAB BLOOD [place] [address], [facility] [phone] * (ABNORMAL) CBC with auto differential (03/30/2020 3:29 PM CDT) WBC 12.1(H) 3.8 - 9.9 X10 3/ul [facility] RBC 5.90(H) 4.30 - 5.80 x10 6/ul [facility] Hemoglobin 17.6(H) 13.0 - 17.5 g/dL [facility] Hct 51.9(H) 38.9 - 50.3 % [facility] MCV 88.0 81.3 - 96.4 fl [facility] MCH 29.8 27.1 - 33.3 pg [facility] MCHC 33.9 32.3 - 35.7 g/dl [facility] RDW 13.3 11.1 - 14.9 % [facility] Plt Count 208 150 - 400 x10 3/ul [facility] MPV 11.3 9.1 - 12.3 fl [facility] Neut % 70.1 % [facility] AST - [facility]ITECH Immature Gran % 0.3 % [facility] Lymph % 21.8 % [facility] Martin % 6.2 % [facility] AST [facility] Eos % 1.0 % [facility] E AST [facility] AUTO BASO % 0.6 % [facility] NEUTROPHIL ABS # 8.5(H) 1.7 - 6.5 x10 3/ul [facility] Immature Gran # 0.0 0.0 - 0.1 x10 3/ul [facility] Absolute Lymphs (auto) 2.7 0.8 - 3.3 x10 3/ul [facility] Absolute Monos (auto) 0.8 0.2 - 0.8 x10 3/ul [facility] Absolute Eos (auto) 0.1 0.0 - 0.5 x10 3/ul [facility] BASOPHIL ABS # 0.1 0.0 - 0.1 x10 3/ul [facility] Nucleat RBC Rel Count 0.0 #/100WBC [facility] NRBC abs 0.00 0.00 - 0.01 x10 3/ul [facility] Absolute Neutrophils 8,500(H) 200 - 8,000 /ul [facility] 03/30/2020 3:29 PM CDT 03/30/2020 3:33 PM CDT Narrative Resulting Agency Comment ER Keith TAYLOR LAB BLOOD ORDERABLES Final Res ult [facility] [address] [phone] * ECG 12 lead (03/30/2020 3:18 PM CDT) Ventricular Rate EKG/Min 67 BPM [facility] Atrial Rate 67 BPM [facility] MN-Interval (MSEC) 118 ms [facility] QRS-Interval (MSEC) 76 ms [facility] QT-Interval (MSEC) 394 ms [facility] QTc 416 ms [facility] P [place] 79 degrees [facility] R [place] -40 degrees [facility] T [place] 51 degrees [facility] Diagnosis Normal sinus rhythm Left axis deviation Nonspecific ST abnormality Abnormal ECG When compared with ECG of 23-FEB-2009 21:15, No significant change was found [facility] 03/30/2020 3:18 PM CDT 03/30/2020 11:14 PM CDT Narrative Resulting Agency Comment LEANDRO us Keith TAYLOR ECG ORDERABLES Final Result [facility] documented in this encounter Visit Diagnoses Not on filedocumented in this encounter Care Teams Promotions Specialist Relationship Specialty Start Date End Date Kely Tijerina NP [address] [facility] [address] [address] PCP - General 12/04/19 06/01/21 documented as of this encounter
--- OUTSIDE RECORDS SUMMARY | 2024-09-25 08:43 | XMS_ITS | Encounter Summary ---
Author Organization [facility] Medical Group Address [address] [place] [address] Care Team Providers Care Electrical Subcontractor Name Role Phone Kely Tijerina NP Primary Care Provider [phone] Elton De La Fuente MD Primary Care Provider [phone] Encounter Details Date Type Department Care Team (Late st Contact Info) Description 05/27/2021 Telephone [facility] Cardiology [address] [facility] [address] [place] [address] Brittany Payne NP [address] [facility] [address] [place] [address] Social History Tobacco Use Types Packs/Day Years Used Date Smoking Tobacco: Every Day Cigarettes 0.1 20 Alcohol Use Standard Drinks/Week Comments Not Currently 0 (1 standard drink = 0.6 oz pur e alcohol) Recovering alcoholic-whiskey Sex and Gender Information Value Date Recorded Sex Assigned at Not on file 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 Gender Identity Not on file Sexual Orientation Not on file 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
--- OUTSIDE RECORDS SUMMARY | 2024-09-25 08:43 | XMS_ITS | Encounter Summary ---
Author Organization [facility] Healthcare Address [address] [place] [address] Care Team Providers Care Wood Piler Name Role Phone Elton De La Fuente MD Primary Care Provider [phone] Encounter Details Date Type Department Care Team (Late st Contact Info) Description 10/11/2019 8:04 AM CITY BAILIFF Hospital Encounter [facility] OP INTERIM Kely Tijerina, [place] [address] [facility] [address] [address] Social History Tobacco Use Types Packs/Day Years Used Date Smoking Tobacco: Every Day Cigarettes 0.1 20 Alcohol Use Standard Drinks/Week Comments Not Currently 0 (1 standard drink = 0.6 oz pur e alcohol) Recovering alcoholic-whiskey Sex and Gender Information Value Date Recorded Sex Assigned at Not on file Legal Sex Male 6:34 PM CITY BAILIFF Gender Identity Not on file Sexual Orientation [...] on filedocumented in this encounter Care Teams Wood Piler Relationship Specialty Start Date End Date Elton De La Fuente MD PCP - General Family Medicine 09/04/19 12/03/19 documented as of this encounter
--- OUTSIDE RECORDS SUMMARY | 2024-09-25 08:43 | XMS_ITS | Encounter Summary ---
Author Organization [facility] Healthcare Address [address] [place] [address] Care Team Providers Care Insurance Verifier Name Role Phone Elton De La Fuente MD Primary Care Provider [phone] Encounter Details Date Type Department Care Team (Late st Contact Info) Description 11/14/2019 1:58 PM CITY SECRETARY - 11/14/2019 3:05 PM CITY SECRETARY Hospital Encounter [facility] OP INTERIM Gloria Murdock MD [facility] [address] [place] [address] Discharge Disposition: Discharge to home or self care Social History Tobacco Use Types Packs/Day Years Used Date Smoking Tobacco: Every Day Cigarettes 0.1 20 Alcohol Use Standard Drinks/Week Comments Not Currently 0 (1 standard drink = 0.6 oz pur e alcohol) Recovering alcoholic-whiskey Sex and Gender Information Value Date Recorded Sex Assigned at Not on file Legal Sex Male 6:34 PM CITY SECRETARY Gender Identity Not on file Sexual Orientation Not on file 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 Not on file Not on file documented as of this encounter Last Filed Vital Signs Vital Sign Reading Time Taken Comments Blood Pressure 128/77 11/14/2019 2:23 PM CITY SECRETARY Pulse 69 11/14/2019 2:23 PM CITY SECRETARY Temperature 36.9 ??C (98.5 ??F) 11/14/2019 2:23 PM CS T Respiratory Rate - - Oxygen Saturation 98% 11/14/2019 2:23 PM CITY SECRETARY Inhaled Oxygen Concentration - - Weight 89.7 kg (197 lb 12.8 oz) 11/14/2019 2:23 PM CITY SECRETARY Height 182.9 cm (6') 11/14/2019 2:23 PM CITY SECRETARY Body Mass Index 26.83 11/14/2019 2:23 PM CITY SECRETARY documented in this encounter Medications at Time [...] on filedocumented in this encounter Care Teams Insurance Verifier Relationship Specialty Start Date End Date Elton De La Fuente MD PCP - General Family Medicine 09/04/19 12/03/19 documented as of this encounter
--- OUTSIDE RECORDS SUMMARY | 2024-09-25 08:43 | XMS_ITS | Encounter Summary ---
Author Organization [facility] Medical Group Address [address] [place] [address] Care Team Providers Care Chef Manager Name Role Phone Elton De La Fuente MD Primary Care Provider [phone] Encounter Details Date Type Department Care Team (Late st Contact Info) Description 10/24/[address] [facility] Medical Group Orthopedics and Sports Medicine [address] 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
--- OUTSIDE RECORDS SUMMARY | 2024-09-25 08:43 | XMS_ITS | Encounter Summary ---
Author Organization [facility] Healthcare Address [address] [place] [address] Care Team Providers Care Aspnet Developer Name Role Phone Elton De La Fuente MD Primary Care Provider [phone] Reason for Referral * Diagnostic Imaging (Routine) - Closed Specialty Diagnoses / Procedures Referred By Contac t Referred To Contact Diagnoses Right cervical radiculopathy Procedures MRI Cervical Spine WO Contrast Kely Tijerina NP Phone: tel: fax: [address] [phone] Referral ID Status Reason Start Date Expiration Date Visits Re quested Visits Authorized [id number] Closed 10/11/2019 04/21/2021 1 1 FIELD SERVICE TECHNICIAN * Diagnostic Imaging (Routine) - Closed Specialty Diagnoses / Procedures Referred By Contac t Referred To Contact Diagnoses Right lumbar radiculopathy Procedures MRI Lumbar Spine WO Contrast Kely Tijerina NP Phone: tel: fax: [address] [phone] Referral ID Status Reason Start Date Expiration Date Visits Re quested Visits Authorized [id number] Closed 10/11/2019 04/21/2021 1 1 FIELD SERVICE TECHNICIAN Encounter Details Date Type Department Care Team (Latest Contact Info) Description 10/23/2019 4:10 PM HVAC FIELD SERVICE TECHNICIAN Hospital Encounter [facility] OP INTERIM Kely Tijerina, HACKSAW INSPECTOR [address] [facility] [address] [place] [address] Right lumbar radiculopathy; Right cervical radiculopathy Social History Tobacco Use Types Packs/Day Years Used Date Smoking Tobacco: Every Day Cigarettes 0.1 20 Alcohol Use Standard Drinks/Week Comments Not Currently 0 (1 standard drink = 0.6 oz pur e alcohol) Recovering alcoholic-whiskey Sex and Gender Information Value Date Recorded Sex Assigned at Not on file Legal Sex Male 6:34 PM HVAC FIELD SERVICE TECHNICIAN Gender Identity Not on file Sexual Orientation Not on file 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 Not on file Not on file [...] Read Routine (OP Routine) 10/23/2019 6:20 AM HVAC FIELD SERVICE TECHNICIAN Right lumbar radiculopathy MRI CERVICAL SPINE WO CONTRAST Schedule Routine, Read Routine (OP Routine) 10/23/2019 6:20 AM HVAC FIELD SERVICE TECHNICIAN Right cervical radiculopathy documented in this encounter Results * MRI Cervical Spine WO Contrast (10/23/2019 6:20 AM HVAC FIELD SERVICE TECHNICIAN) Anatomical Region Laterality Modality Spine N/A Magnetic Resonan ce 10/24/2019 11:4 1 AM HVAC FIELD SERVICE TECHNICIAN Narrative 10/24/2019 11:53 AM HVAC FIELD SERVICE TECHNICIAN Patient Name: TRAMAINE MARIN ?Ordering Dr: Kely Tijerina ?? D.O.B: 1970 ? Exam Date: 10/23/19 ?? 0620 ?? Age: 48 ?Sex: Male ? MR#: [id number] ?? Loc: ? RADIOLOGY REPORT ?? Order #[id number] ?? Magnetic Resonance Imaging ? MRI Cervical [...] at ?? C4-C5 and C6-C7. ? DISCS: Eiiz-ij-bjdwwtcf disc desiccation and height loss at C5-C6 [...] spurring and facet ?? arthropathy resulting in eaym-ns-jnobpvuu left and moderate to severe right ?? [...] T: ??10/24/2019 11:53 AM ? Report ID: [id number] ?? Reading Location: ??[id number] ? REPORT ELECTRONICALLY SIGNED IN OTHER VENDOR SYSTEM ?? Resulting Agency Comment O Procedure Note Berto Panchal DO - 10/24/2019 Patient Name: TRAMAINE MARIN Dr: Kely Tijerina D.O.B: 1970 Exam Date: 10/23/19619 Age: 48 Sex: Male MR#: [id number] Loc: RADIOLOGY REPORT Order #[id number] Magnetic Resonance Imaging MRI Cervical Signed EXAM [...] to lesser extentat C4-C5 and C6-C7. DISCS: Yrxm-vt-svunpfpo disc desiccation and height loss at C5-C6 [...] Uncovertebral spurring and facet arthropathy resulting in ohnt-dk-oomznqhe left and moderate to severeright neural foraminal [...] Berto Panchal D.O. AP: CARMINA Report ID: [id number] Reading Location: [place] [address] REPORT ELECTRONICALLY SIGNED IN OTHER VENDOR SYSTEM us Kely Tijerina HACKSAW INSPECTOR IMG MRI PROCEDURES Final Re sult * MRI Lumbar Spine WO Contrast (10/23/2019 6:20 AM HVAC FIELD SERVICE TECHNICIAN) Anatomical Region Laterality Modality Spine N/A Magnetic Resonan ce 10/24/2019 9:48 AM HVAC FIELD SERVICE TECHNICIAN Narrative 10/24/2019 10:02 AM HVAC FIELD SERVICE TECHNICIAN Patient Name: TRAMAINE MARIN JR ?Ordering : Kely Tijerina ANP ?? D.O.B: 1970 ? Exam Date: 01/29/20 ?? 0620 ?? Age: 48 ?Sex: Male ? MR#: [id number] ?? Loc: ? RADIOLOGY REPORT ?? Order #[id number] ?? Magnetic Resonance Imaging ? MRI Lumbar [...] ??Moderate ?? spinal canal narrowing. ??There is mavh-zm-ztlyjkaz right and moderate to ?? severe left neural foraminal narrowing. ??Thickened ligamentum flavum and disc ?? material contacts the exiting left L2 nerve root. ? L3-L4: Retrolisthesis of L3 on L4. ??Circumferential disc bulge and ?? superimposed central disc protrusion with an annular fissure. ??Thickening of ?? ligamentum flavum and facet arthropathy. ??There is mhxx-he-hrepkbmt spinal ?? canal narrowing. ??Moderate right and left neural foraminal narrowing, right ?? greater than left. ? L4-L5: Retrolisthesis of L4 on L5. ??Circumferential disc bulge and a ?? superimposed central disc protrusion with an annular fissure. ??There is ?? thickening of ligamentum flavum and facet arthropathy. ??Qajm-cd-qtkbslxv ?? spinal canal narrowing. ??There is bilateral subarticular zone narrowing, left ?? greater than right. ??Moderate to severe right and qivi-fb-nsqdtoul left neural ?? foraminal narrowing. ??Mass effect [...] T: ??10/24/2019 10:02 AM ? Report ID: [id number] ?? Reading Location: ??[id number] ? REPORT ELECTRONICALLY SIGNED IN OTHER VENDOR SYSTEM ?? Resulting Agency Comment O Procedure Note Berto Panchal, DO - 10/24/2019 Patient Name: TRAMAINE MARIN Thomas Cartagena Dr: Kely Tijerina D.O.B: 1970 Exam Date: 10/23/19619 Age: 48 Sex: Male MR#: [id number] Loc: RADIOLOGY REPORT Order #[id number] Magnetic Resonance Imaging MRI Lumbar Signed EXAM [...] facet arthropathy.Moderate spinal canal narrowing. There is kezb-vp-fbrlxobn right and moderate to severe left neural foraminal narrowing. Thickened ligamentum flavum anddisc material contacts the exiting left L2 nerve root. L3-L4: Retrolisthesis of L3 on L4. Circumferential disc bulge and superimposed central disc protrusion with an annular fissure. Thickeningof ligamentum flavum and facet arthropathy. There is eigs-eq-eiopzwaeapeftz canal narrowing. Moderate right and left neural foraminal narrowing,right greater than left. L4-L5: Retrolisthesis of L4 on L5. Circumferential disc bulge and a superimposed central disc protrusion with an annular fissure. There is thickening of ligamentum flavum and facet arthropathy. Khkj-cf-irjfjvar spinal canal narrowing. There is bilateral subarticular zone narrowing,left greater than right. Moderate to severe right and lkut-bx-vzogzkzo leftneural foraminal narrowing. Mass effect on the [...] Berto Panchal D.O. AP: CARMINA Report ID: [id number] Reading Location: [place] [address] REPORT ELECTRONICALLY SIGNED IN OTHER VENDOR SYSTEM Kely Tijerina HACKSAW INSPECTOR IMG MRI PROCEDURES Final Re sult documented in this encounter Visit Diagnoses Diagnosis Right lumbar radiculopathy Thoracic or lumbosacral neuritis or radiculitis, unspecified Right cervical radiculopathy documented in this encounter Care Teams Aspnet Developer Relationship Specialty Start Date End Date Elton De La Fuente MD PCP - General Family Medicine 09/04/19 12/03/19 documented as of this encounter
--- OUTSIDE RECORDS SUMMARY | 2024-09-25 08:43 | XMS_ITS | Encounter Summary ---
Author Organization [facility] Address [address] [place] [address] Care Team Providers Care Machine Heel Sprayer Name Role Phone Elton De La Fuente MD Primary Care Provider [phone] Encounter Details Date Type Department Care Team (Late st Contact Info) Description 10/24/2019 Documentation [facility] Orthopedics and Sports Medicine 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
--- OUTSIDE RECORDS SUMMARY | 2024-09-25 08:44 | XMS_ITS | Encounter Summary ---
Author Organization [facility] Healthcare Address [address] [place] [address] Care Team Providers Care Clinical Studies Specialist Name Role Phone Elton De La Fuente MD Primary Care Provider [phone] Reason for Referral * Diagnostic Imaging (Routine) - Closed Specialty Diagnoses / Procedures Referred By Contac t Referred To Contact Diagnoses Chronic neck and back pain Procedures XR Spine Cervical Complete 4 or 5 Views Kely Tijerina NP Phone: tel: fax: [address] [phone] Referral ID Status Reason Start Date Expiration Date Visits Re quested Visits Authorized [id number] Closed 10/03/2019 04/13/2021 1 1 AURANT AND BAR MANAGER * Diagnostic Imaging (Routine) - Closed Specialty Diagnoses / Procedures Referred By Contac t Referred To Contact Diagnoses Lumbar spondylosis Procedures XR Spine Lumbar W Bending 6 or More Views Kely Tijerina NP Phone: tel: fax: [address] [phone] Referral ID Status Reason Start Date Expiration Date Visits Re quested Visits Authorized [id number] Closed 09/05/2019 03/16/2021 1 1 AURANT AND BAR MANAGER Encounter Details Date Type Department Care Team (Late st Contact Info) Description 09/11/2019 9:32 AM RESTAURANT AND BAR MANAGER Hospital Encounter [facility] OP INTERIM Kely Tijerina, CREAM DUMPER [address] [place] [address] [place] [id number] Lumbar pain; Neck pain Social History Tobacco Use Types Packs/Day Years Used Date Smoking Tobacco: Every Day Cigarettes 0.1 20 Alcohol Use Standard Drinks/Week Comments Not Currently 0 (1 standard drink = 0.6 oz pur e alcohol) Recovering alcoholic-whiskey Sex and Gender Information Value Date Recorded Sex Assigned at Not on file Legal Sex Male 6:34 PM RESTAURANT AND BAR MANAGER Gender Identity Not on file Sexual Orientation Not on file 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 Not on file Not on file Not on file documented as of this encounter Plan of Treatment Not on file documented as of this encounter Procedures Procedure Name Priority Date/Time Associated Diagnosis Comments XR SPINE CERVICAL COMPLETE 4 OR 5 VW Schedule Routine, Read Routine (OP Routine) 10/11/2019 8:07 AM RESTAURANT AND BAR MANAGER Neck pain XR SPINE LUMBAR W BENDING 6 OR MORE VIEWS Schedule Routine, Read Routine (OP Routine) 09/11/2019 9:34 AM RESTAURANT AND BAR MANAGER Lumbar pain documented in this encounter Results * XR Spine Cervical Complete 4 or 5 Views (10/11/2019 8:07 AM RESTAURANT AND BAR MANAGER) Anatomical Region Laterality Modality Spine N/A Radiographic Riddhi ging 10/11/2019 12:5 5 PM RESTAURANT AND BAR MANAGER Narrative 10/11/2019 1:00 PM RESTAURANT AND BAR MANAGER Patient Name: TRAMAINE MARIN ?Ordering : Kely Tijerina ?? D.O.B: 1970 ? Exam Date: /17/20 ?? 0807 ?? Age: 48 ?Sex: Male ? MR#: [id number] ?? Loc: ? RADIOLOGY REPORT ?? Order #[id number] ?? Radiology ? Cervical Spine 4 View [...] T: ??10/11/2019 12:57 PM ? Report ID: [id number] ?? Reading Location: ??[id number] ? REPORT ELECTRONICALLY SIGNED IN OTHER VENDOR SYSTEM ?? Resulting Agency Comment O Procedure Note Alonso Gould MD - 10/11/2019 Patient Name: TRAMAINE MARIN Dr: Kely TijerinaO.B: 1970 Exam Date: 10/11/19 0807 Age: 48 Sex: Male MR#: [id number] Loc: RADIOLOGY REPORT Order #[id number] Radiology Cervical Spine 4 View Min Signed [...] Electronically signed by Alonso GRAHAM Report ID: [id number] Reading Location: [place] [address] REPORT ELECTRONICALLY SIGNED IN OTHER VENDOR SYSTEM us Kely Tijerina CREAM DUMPER IMG XR PROCEDURES Final Res ult * XR Spine Lumbar W Bending 6 or More Views (09/11/2019 9:34 AM RESTAURANT AND BAR MANAGER) Anatomical Region Laterality Modality Spine N/A Radiographic Riddhi ging 09/12/2019 10:5 3 AM RESTAURANT AND BAR MANAGER Narrative 09/12/2019 10:55 AM RESTAURANT AND BAR MANAGER Patient Name: TRAMAINE MARIN JR ?Ordering Dr: Kely Tijerina ?? D.O.B: 1970 ? Exam Date: 09/11/19 ?? 0934 ?? Age: 48 ?Sex: Male ? MR#: [id number] ?? Loc: ? RADIOLOGY REPORT ?? Order #[id number] ?? Radiology ? Lumbar Spine Bending 6 [...] unchanged in height. ??There is multilevel ?? esvm-wa-gukoanfl facet arthropathy, greatest within the lower lumbar spine. ? There is mild diffuse degenerative disc disease, moderate at the L4-L5 level. ? IMPRESSION: ??Sfnr-gh-lyfbtjfp lumbar spondylosis, without acute radiographic ?? abnormality. ? THIS IS AN ELECTRONICALLY VERIFIED FINAL REPORT ?? 09/12/2019 10:55 AM - Electronically signed by Trung Garcia M.D. ?? Trung Garcia M.D. ? RT ?? D: ??09/12/2019 10:55 AM ?? T: ? Report ID: [id number] ?? Reading Location: ??[id number] ? REPORT ELECTRONICALLY SIGNED IN OTHER VENDOR SYSTEM ?? Resulting Agency Comment O Procedure Note Trung Garcia MD - 09/12/2019 Patient Name: MICHELETRAMAINENahomy Cartagena Dr: Kely Tijerina D.O.B: 1970 Exam Date: 09/11/19 0934 Age: 48 Sex: Male MR#: [id number] Loc: RADIOLOGY REPORT Order #[id number] Radiology Lumbar Spine Bending 6 Vw Min [...] are unchanged in height. There is multilevel bmoe-yw-salqudmx facet arthropathy, greatest within the lower lumbarspine. There is mild diffuse degenerative disc disease, moderate at the L4-P2pmqzm. IMPRESSION: Brqp-me-idlwftzl lumbar spondylosis, without acuteradiographic abnormality. THIS IS AN ELECTRONICALLY VERIFIED FINAL REPORT 09/12/2019 10:55 AM - Electronically signed by Trung Garcia M.D. RT T: Report ID: [id number] Reading Location: [place] [address] REPORT ELECTRONICALLY SIGNED IN OTHER VENDOR SYSTEM us Kely Tijerina CREAM DUMPER IMG XR PROCEDURES Final Res ult documented in this encounter Visit Diagnoses Diagnosis Lumbar pain Lumbago Neck pain Cervicalgia documented in this encounter Care Teams Clinical Studies Specialist Relationship Specialty Start Date End Date Elton De La Fuente MD PCP - General Family Medicine 09/04/19 12/03/19 documented as of this encounter
--- OUTSIDE RECORDS SUMMARY | 2024-09-25 08:44 | XMS_ITS | Encounter Summary ---
Author Organization [facility] Healthcare Address [address] [place] [address] Care Team Providers Care Biofuels Operations Manager Name Role Phone Unavailable Primary Care Provider Unavailabl e Encounter Details Date Type Department Care Team (Latest Contact Info) Description 08/09/2015 8:29 AM STRAP FOLDING MACHINE OPERATOR - 08/09/2015 1:00 PM STRAP FOLDING MACHINE OPERATOR Hospital Encounter [facility] Trenton Grimm, DO [address] [facility] [place] [address] Hydronephrosis with renal and ureteral calculus obstruction Social History Tobacco Use Types Packs/Day Years Used Date Smoking Tobacco: Never Assessed Sex and Gender Information Value Date Recorded Sex Assigned at Not on file Legal Sex Male 6:34 PM STRAP FOLDING MACHINE OPERATOR Gender Identity Not on file Sexual Orientation Not on file documented as of this encounter Last Filed Vital Signs Vital Sign Reading Time Taken Comments Blood Pressure 136/96 08/09/2015 8:30 AM STRAP FOLDING MACHINE OPERATOR Pulse 74 08/09/2015 8:30 AM STRAP FOLDING MACHINE OPERATOR Temperature 36.5 ??C (97.7 ??F) 08/09/2015 8:30 AM CS T Respiratory Rate - - Oxygen Saturation 96% 08/09/2015 8:30 AM STRAP FOLDING MACHINE OPERATOR Inhaled Oxygen Concentration - - Weight 90.7 kg (200 lb) 08/09/2015 8:30 AM STRAP FOLDING MACHINE OPERATOR Height 182.9 cm (6') 08/09/2015 8:30 AM STRAP FOLDING MACHINE OPERATOR Body Mass Index 27.12 08/09/2015 8:30 AM STRAP FOLDING MACHINE OPERATOR documented in this encounter Plan of Treatment Not on file documented as of this encounter Procedures Procedure Name Priority Date/Time Associated Diagnosis Comments CBC WITH AUTO DIFFERENTIAL Routine 08/09/2015 10:56 AM STRAP FOLDING MACHINE OPERATOR COMPREHENSIVE METABOLIC PANEL Routine 08/09/2015 10:56 AM STRAP FOLDING MACHINE OPERATOR URINALYSIS AND REFLEX TO MICROSCOPIC AND CULTURE Routine 08/09/2015 10:15 AM STRAP FOLDING MACHINE OPERATOR CT ABDOMEN PELVIS WO CONTRAST Routine 08/09/2015 12:00 AM STRAP FOLDING MACHINE OPERATOR documented in this encounter Results * Comprehensive metabolic panel (08/09/2015 10:56 AM STRAP FOLDING MACHINE OPERATOR) Sodium 141 135 - 145 mmol/L 08/09/2015 11:27 AM [employer] HISTORICAL RESULTS Potassium 4.0 3.3 - 5.1 mmol/L 08/09/2015 11:27 AM [facility] HISTORICAL RESULTS Chloride 101 96 - 108 mmol/L 08/09/2015 11:27 AM [facility] HISTORICAL RESULTS Carbon Dioxide 27 22 - 32 mmol/L 08/09/2015 11:27 AM [facility] HISTORICAL RESULTS Anion Gap 13 7 - 16 08/09/2015 11:27 AM [facility] HISTORICAL RESULTS Glucose 97 70 - 100 mg/dL 08/09/2015 11:27 AM [facility] HISTORICAL RESULTS BUN 10 6 - 20 mg/dL 08/09/2015 11:27 AM [facility] HISTORICAL RESULTS Creatinine 1.0 0.5 - 1.3 mg/dL 08/09/2015 11:27 AM [facility] HISTORICAL RESULTS Kidney Disease Stage 86 mL/MIN 08/09/2015 11:27 AM [facility] HISTORICAL RESULTS Comment: NOTE; ??The GFR is [...] 8.6 - 10.0 mg/dL 08/09/2015 11:27 AM STRAP FOLDING MACHINE OPERATOR [facility] HISTORICAL RESULTS Total Protein 7.4 6.4 - 8.3 g/dL 08/09/2015 11:27 AM STRAP FOLDING MACHINE OPERATOR [facility] HISTORICAL RESULTS Albumin 4.8 3.5 - 5.2 g/dL 08/09/2015 11:27 AM [facility] [employer] HISTORICAL RESULTS Globulin 2.6 2.3 - 3.5 gm/dL 08/09/2015 11:27 AM STRAP FOLDING MACHINE OPERATOR [facility] [employer] HISTORICAL RESULTS Albumin/Globulin Ratio 1.8 1.1 - 1.8 08/09/2015 11:27 AM STRAP FOLDING MACHINE OPERATOR [facility] [employer] HISTORICAL RESULTS Total Bilirubin 0.7 0.0 - 1.2 mg/dL 08/09/2015 11:27 AM STRAP FOLDING MACHINE OPERATOR [facility] HISTORICAL RESULTS AST 27 0 - 40 U/L 08/09/2015 11:27 AM STRAP FOLDING MACHINE OPERATOR [facility] HISTORICAL RESULTS ALT 26 0 - 41 U/L 08/09/2015 11:27 AM [facility] [employer] HISTORICAL RESULTS Alkaline Phosphatase 84 40 - 129 U/L 08/09/2015 11:27 AM [facility] [employer] HISTORICAL RESULTS 08/09/2015 10:5 6 AM STRAP FOLDING MACHINE OPERATOR 08/09/2015 11:00 AM STRAP FOLDING MACHINE OPERATOR us Trenton Alexander DO LAB BLOOD ORDERABLES Final Result [facility] HISTORICAL RESULTS * (ABNORMAL) CBC with auto differential (08/09/2015 10:56 AM STRAP FOLDING MACHINE OPERATOR) WBC 13.4(H) 4.6 - 10.2 x10 3/ul 08/09/2015 11:04 AM [facility] HISTORICAL RESULTS RBC 5.97(H) 4.11 - 5.71 x10 6/ul 08/09/2015 11:04 AM STRAP FOLDING MACHINE OPERATOR [facility] [employer] HISTORICAL RESULTS Hemoglobin 18.4(H) 13.0 - 17.0 g/dl 08/09/2015 11:04 AM STRAP FOLDING MACHINE OPERATOR [facility] [employer] HISTORICAL RESULTS Hct 52.7(H) 38.2 - 48.5 % 08/09/2015 11:04 AM STRAP FOLDING MACHINE OPERATOR [facility] [employer] HISTORICAL RESULTS MCV 88.3 80.0 - 97.0 fl 08/09/2015 11:04 AM STRAP FOLDING MACHINE OPERATOR [facility] [employer] [facility] HISTORICAL RESULTS MCH 30.8 27.0 - 31.2 pg 08/09/2015 11:[address] [facility] [employer] [employer] [facility] HISTORICAL RESULTS MCHC 34.9 31.8 - 35.4 g/dl 08/09/2015 11:[address] [facility] [employer] HISTORICAL RESULTS RDW 13.0 11.6 - 14.8 % 08/09/2015 11:[address] [facility] [employer] HISTORICAL RESULTS Plt Count 146 124 - 400 x10 3/ul 08/09/2015 11:[address] [facility] [employer] HISTORICAL RESULTS MPV 11.4(H) 7.4 - 10.4 fl 08/09/2015 11:[address] [facility] [employer] [facility] HISTORICAL RESULTS Differential Method AUTOMATED DIFF --------- -- 08/09/2015 11:[address] [facility] [employer] HISTORICAL RESULTS Neut % 77.0 37.0 - 85.0 % 08/09/2015 11:[address] [facility] [employer] HISTORICAL RESULTS Immature Gran % 0.4 0.0 - 3.0 % 08/09/2015 11:[address] [facility] [employer] HISTORICAL RESULTS Lymph % 12.4 5.0 - 45.0 % 08/09/2015 11:[address] [facility] [employer] HISTORICAL RESULTS Hardin % 9.2 3.0 - 15.0 % 08/09/2015 11:[address] [facility] [employer] HISTORICAL RESULTS Eos % 0.7 0.0 - 7.0 % 08/09/2015 11:[address] [facility] [employer] HISTORICAL RESULTS Baso % 0.3 0.0 - 2.0 % 08/09/2015 11:[address] [facility] [employer] HISTORICAL RESULTS ABSOLUTE COUNTS ABSOLUTE COUNTS --------- -- Absolute Neuts (auto) 10.4(H) 1.7 - 8.7 x10 3/ul Immature Gran # 0.1 0.0 - 0.3 x10 3/ul Absolute Lymphs (auto) 1.7 0.2 - 4.6 x10 3/ul 08/09/2015 11:04 AM STRAP FOLDING MACHINE OPERATOR [facility] HISTORICAL RESULTS Absolute Monos (auto) 1.2 0.1 - 1.5 x10 3/ul Absolute Eos (auto) 0.1 0.0 - 0.7 x10 3/ul Absolute Basos (auto) 0.0 0.0 - 0.2 x10 3/ul 08/09/2015 10:5 6 AM STRAP FOLDING MACHINE OPERATOR 08/09/2015 11:[address] [facility] Trenton Alexander DO LAB BLOOD ORDERABLES Final Result [facility] HISTORICAL RESULTS * (ABNORMAL) Urinalysis reflex to microscopic and culture (08/09/2015 10:15 AM STRAP FOLDING MACHINE OPERATOR) Ur Collection Type CLEAN CATCH Ur Culture Indicated? C&S NOT INDICATED Urine Color YELLOW YELLOW Urine Clarity CLEAR CLEAR Urine Glucose (UA) NORMAL NORMAL mg/dL Urine Bilirubin NEGATIVE NEGATIVE mg/dl Urine Ketones NEGATIVE NEGATIVE mg/dL Ur Specific [place] 1.014 1.005 - 1.025 Urine Blood 1.0(H) NEGATIVE mg/dl Urine pH 7.5 5.0 - 8.0 Urine Protein 30(H) NEGATIVE mg/dL Urine Urobilinogen NORMAL NORMAL mg/dL Urine Nitrite NEGATIVE NEGATIVE Ur Leukocyte Esterase NEGATIVE NEGATIVE Kinsey/ul Ur Microscopic Review Indicated or Ordered Urine RBC 709 0 - 2 /HPF Urine WBC 1 0 - 2 /HPF Urine Mucus Rare /LPF 08/09/2015 10:1 5 AM STRAP FOLDING MACHINE OPERATOR 08/09/2015 10:27 AM STRAP FOLDING MACHINE OPERATOR Narrative [facility] HISTORICAL RESULTS - 08/09/2015 10:41 AM STRAP FOLDING MACHINE OPERATOR Trenton Alexander DO LAB MICROBIOLOGY - GENERAL ORDERABLES Final Result [facility] HISTORICAL RESULTS * CT Abdomen Pelvis WO Contrast (08/09/2015 12:00 AM STRAP FOLDING MACHINE OPERATOR) Anatomical Region Laterality Modality Body N/A Computed Tomogra phy 08/09/2015 Impressions 08/09/2015 11:27 AM STRAP FOLDING MACHINE OPERATOR ??4 mm stone at the left uterovesical junction resulting mild left hydronephrosis. Bilateral non-obstructing nephrolithiasis. Normal appendix. THIS IS AN ELECTRONICALLY VERIFIED REPORT 08/09/2015 11:23 AM: ??Sebas Murray M.D. Sebas Murray M.D. [place]:hi 11:23 AM 11:23 AM [facility] [EOD] Narrative 08/09/2015 11:27 AM STRAP FOLDING MACHINE OPERATOR EXAMINATION: ??CT ABDOMEN and PELVIS without IV [...]
--- OUTSIDE RECORDS SUMMARY | 2024-09-25 08:44 | XMS_ITS | Encounter Summary ---
Author Organization [facility] Healthcare Address [address] [place] [address] Care Team Providers Care Manager Graphic Name Role Phone Unavailable Primary Care Provider Unavailabl e Encounter Details Date Type Department Care Team (Latest Contact Info) Description 04/28/2016 8:35 AM CDT - 04/28/2016 10:30 AM CDT Hospital Encounter [facility] Trenton Ventura MD [address] [place] [address] Calculus of kidney with calculus of ureter Social History Tobacco Use Types Packs/Day Years Used Date Smoking Tobacco: Never Assessed Sex and Gender Information Value Date Recorded Sex Assigned at Not on file Legal Sex Male 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 Gender Identity Not on file Sexual Orientation [...] 135 - 145 mmol/L 04/28/2016 9:31 AM [employer] HISTORICAL RESULTS Potassium 4.0 3.3 - 5.1 mmol/L 04/28/2016 9:31 AM [facility] [employer] HISTORICAL RESULTS Chloride 98 96 - 108 mmol/L 04/28/2016 9:31 AM [employer] HISTORICAL RESULTS Carbon Dioxide 24 22 - 32 mmol/L 04/28/2016 9:31 AM [employer] [employer] HISTORICAL RESULTS Anion Gap 16 7 - 16 04/28/2016 9:31 AM [employer] HISTORICAL RESULTS Glucose 116(H) 70 - 100 mg/dL 04/28/2016 9:31 AM [employer] HISTORICAL RESULTS BUN 11 6 - 20 mg/dL 04/28/2016 9:31 AM [employer] HISTORICAL RESULTS Creatinine 1.2 0.5 - 1.3 mg/dL 04/28/2016 9:31 AM [employer] HISTORICAL RESULTS Comment: NOTE: Estimated GFR (Cockroft-Gault) will NOT be calculated unless patient Height and Weight were entered. Also, Kidney Disease Stage (GFR) and Estimated GFR (Cockroft-Gault) will NOT be calculated if Creatinine result is <0.2. Kidney Disease Stage 70 mL/MIN 04/28/2016 9:31 AM [employer] HISTORICAL RESULTS Comment: NOTE; ??The GFR is [...] GFR (Cockcroft-G) 90 ml/MIN 04/28/2016 9:31 AM [facility] HISTORICAL RESULTS Calcium 9.6 8.6 - 10.0 mg/dL 04/28/2016 9:31 AM [facility] HISTORICAL RESULTS Total Protein 7.6 6.4 - 8.3 g/dL 04/28/2016 9:31 AM [facility] HISTORICAL RESULTS Albumin 4.7 3.5 - 5.2 g/dL 04/28/2016 9:31 AM [facility] HISTORICAL RESULTS Globulin 2.9 2.3 - 3.5 gm/dL 04/28/2016 9:31 AM [facility] Albumin/Globulin Ratio 1.6 1.1 - 1.8 04/28/2016 9:31 AM [facility] HISTORICAL RESULTS Total Bilirubin 1.1 0.0 - 1.2 mg/dL 04/28/2016 9:31 AM [facility] HISTORICAL RESULTS AST 30 0 - 40 U/L 04/28/2016 9:31 AM [facility] HISTORICAL RESULTS ALT 29 0 - 41 U/L 04/28/2016 9:31 AM [facility] HISTORICAL RESULTS Alkaline Phosphatase 91 40 - 129 U/L 04/28/2016 9:31 AM [facility] HISTORICAL RESULTS 04/28/2016 8:51 AM CDT 04/28/2016 9:00 AM CDT us Trenton Ventura MD LAB BLOOD ORDERABLES Fin al Result [facility] [employer] HISTORICAL RESULTS * (ABNORMAL) CBC with auto differential (04/28/2016 8:51 AM CDT) WBC 8.6 4.6 - 10.2 x10 3/ul 04/28/2016 9:04 AM CDT [employer] HISTORICAL RESULTS RBC 5.68 4.11 - 5.71 x10 6/ul 04/28/2016 9:04 AM CDT [employer] HISTORICAL RESULTS Hemoglobin 17.6(H) 13.0 - 17.0 g/dl 04/28/2016 9:04 AM CDT [employer] HISTORICAL RESULTS Hct 50.8(H) 38.2 - 48.5 % 04/28/2016 9:04 AM CDT [employer] HISTORICAL RESULTS MCV 89.4 80.0 - 97.0 fl 04/28/2016 9:04 AM CDT [employer] HISTORICAL RESULTS MCH 31.0 27.0 - 31.2 pg 04/28/2016 9:04 AM CDT [employer] HISTORICAL RESULTS MCHC 34.6 31.8 - 35.4 g/dl 04/28/2016 9:04 AM CDT [employer] HISTORICAL RESULTS RDW 13.2 11.6 - 14.8 % 04/28/2016 9:04 AM CDT [employer] HISTORICAL RESULTS Plt Count 168 124 - 400 x10 3/ul 04/28/2016 9:04 AM CDT [employer] HISTORICAL RESULTS MPV 11.6(H) 7.4 - 10.4 fl 04/28/2016 9:04 AM CDT [employer] HISTORICAL RESULTS Neut % 65.8 37.0 - 85.0 % 04/28/2016 9:04 AM CDT [facility] [employer] HISTORICAL RESULTS Immature Gran % 0.5 0.0 - 3.0 % 04/28/2016 9:04 AM CDT [facility] [employer] HISTORICAL RESULTS Lymph % 21.8 5.0 - 45.0 % 04/28/2016 9:04 AM CDT [employer] HISTORICAL RESULTS [place] % 9.7 3.0 - 15.0 % Eos [...] MD LAB BLOOD ORDERABLES Fin al Result [facility] HISTORICAL RESULTS * (ABNORMAL) Urinalysis reflex to microscopic and culture (04/28/2016 8:48 AM CDT) Ur Collection Type CLEAN CATCH Ur Culture Indicated? C&S NOT INDICATED Urine Color YELLOW YELLOW Urine Clarity HAZY CLEAR Urine Glucose (UA) NORMAL NORMAL mg/dL Urine Bilirubin NEGATIVE NEGATIVE mg/dl Urine Ketones NEGATIVE NEGATIVE mg/dL Ur Specific [place] 1.023 1.005 - 1.025 Urine Blood >=1.0 [...] AM CDT 04/28/2016 9:00 AM T Narrative [facility] HISTORICAL RESULTS - 04/28/2016 10:13 AM CDT us Trenton Ventura MD LAB MICROBIOLOGY - GENER AL ORDERABLES Final Result [facility] HISTORICAL RESULTS * CT Abdomen [...] Jerez M.D. TB:tb 09:37 AM 09:37 AM [facility] [EOD] Narrative 04/28/2016 9:41 AM [...] Jerez M.D. TB:tb 09:37 AM 09:37 AM [facility] [EOD] Trenton Ventura MD IMG CT PROCEDURES Final Result documented in this encounter Visit Diagnoses Diagnosis Calculus of kidney with calculus of ureter documented in this encounter
--- OUTSIDE RECORDS SUMMARY | 2024-09-25 08:44 | XMS_ITS | Encounter Summary ---
Author Organization [facility] Address [address] [place] [address] Care Team Providers Care Lip Reading Teacher Name Role Phone Elton De La Fuente MD Primary Care Provider [phone] Reason for Referral * Diagnostic Imaging (Routine) - Closed Specialty Diagnoses / Procedures Referred By Contac t Referred To Contact Diagnoses Right lumbar radiculopathy Procedures MRI Lumbar Spine WO Contrast Kely Tijerina NP Phone: tel: fax: [address] [phone] Referral ID Status Reason Start Date Expiration Date Visits Re quested Visits Authorized [id number] Closed 10/11/2019 04/21/2021 1 1 TING MACHINE OPERATOR * Diagnostic Imaging (Routine) - Closed Specialty Diagnoses / Procedures Referred By Contac t Referred To Contact Diagnoses Right cervical radiculopathy Procedures MRI Cervical Spine WO Contrast Kely Tijerina NP Phone: tel: fax: [address] [phone] Referral ID Status Reason Start Date Expiration Date Visits Re quested Visits Authorized [id number] Closed 10/11/2019 04/21/2021 1 1 TING MACHINE OPERATOR * Diagnostic Imaging (Routine) - Closed Specialty Diagnoses / Procedures Referred By Dat t Referred To Contact Diagnoses Chronic neck and back pain Procedures XR Spine Cervical Complete 4 or 5 Views Kely Tijerina NP Phone: tel: fax: [facility] [address] [place] [phone] Referral ID Status Reason Start Date Expiration Date Visits Re quested Visits Authorized [id number] Closed 10/03/2019 04/13/2021 1 1 TING MACHINE OPERATOR Reason for Visit * Reason Comments Pain Encounter Details Date Type Department Care Team (Late st Contact Info) Description 10/11/2019 8:00 AM PRINTING MACHINE OPERATOR Office Visit [facility] Orthopedics and Sports Medicine [address] [place] [address] [address] [place] [address] Kely Tijerina NP [address] [place] [phone] Chronic neck and back pain; Right cervical [...] on file Legal Sex Male 6:34 PM PRINTING MACHINE OPERATOR Gender Identity Not on file Sexual Orientation Not on file 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 Previous conservative treatment included direct care supervisor, use of meloxicam and tizanidine. He also [...] to the fifth finger, and exhibit full manager life insurance strength. 2+ radial and ulnar pulses. Fingers [...] 2019, impression per radiologist Dr. Trung Garcia: Tvbb-yq-txshtrxg lumbar spondylosis, without acute radiographic abnormality. ?? [...] treatment with the use of meloxicam, tizanidine, direct care supervisor ??? Tramaine was instructed to follow up [...] History: Social History Occupational History ??? 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 Smoking status: Current [...] Encounters: 10/11/19 25.23 kg/m?? Kely Tijerina NP TING MACHINE OPERATOR TING MACHINE OPERATOR documented in this encounter Plan of Treatment Not on file documented as of this encounter Results * MRI Lumbar Spine WO Contrast (10/23/2019 6:20 AM PRINTING MACHINE OPERATOR) Anatomical Region Laterality Modality Spine N/A Magnetic Resonan ce 10/24/2019 9:48 AM PRINTING MACHINE OPERATOR Narrative 10/24/2019 10:02 AM PRINTING MACHINE OPERATOR Patient Name: TRAMAINE MARIN ?Ordering Dr: Kely Tijerina ANP ?? D.O.B: 1970 ? Exam Date: 10/23/ ?? 0620 ?? Age: 48 ?Sex: Male ? MR#: [id number] ?? Loc: ? RADIOLOGY REPORT ?? Order #[id number] ?? Magnetic Resonance Imaging ? MRI Lumbar [...] ??Moderate ?? spinal canal narrowing. ??There is qwjd-va-yeiamzyx right and moderate to ?? severe left neural foraminal narrowing. ??Thickened ligamentum flavum and disc ?? material contacts the exiting left L2 nerve root. ? L3-L4: Retrolisthesis of L3 on L4. ??Circumferential disc bulge and ?? superimposed central disc protrusion with an annular fissure. ??Thickening of ?? ligamentum flavum and facet arthropathy. ??There is ovhv-nm-zjzkkbqy spinal ?? canal narrowing. ??Moderate right and left neural foraminal narrowing, right ?? greater than left. ? L4-L5: Retrolisthesis of L4 on L5. ??Circumferential disc bulge and a ?? superimposed central disc protrusion with an annular fissure. ??There is ?? thickening of ligamentum flavum and facet arthropathy. ??Nbio-hh-tolqpgau ?? spinal canal narrowing. ??There is bilateral subarticular zone narrowing, left ?? greater than right. ??Moderate to severe right and amvn-bx-kviwsggs left neural ?? foraminal narrowing. ??Mass effect [...] T: ??10/24/2019 10:02 AM ? Report ID: [id number] ?? Reading Location: ??[id number] ? REPORT ELECTRONICALLY SIGNED IN OTHER VENDOR SYSTEM ?? Resulting Agency Comment O Procedure Note Berto Panchal DO - 10/24/2019 Patient Name: TRAMAINE MARIN [facility] Dr: Kely Tijerina D.O.B: 1970 Exam Date: 10/23/19619 Age: 48 Sex: Male MR#: [id number] Loc: RADIOLOGY REPORT Order #[id number] Magnetic Resonance Imaging MRI Lumbar Signed EXAM [...] facet arthropathy.Moderate spinal canal narrowing. There is rsmg-nr-kswrdjyf right and moderate to severe left neural foraminal narrowing. Thickened ligamentum flavum anddisc material contacts the exiting left L2 nerve root. L3-L4: Retrolisthesis of L3 on L4. Circumferential disc bulge and superimposed central disc protrusion with an annular fissure. Thickeningof ligamentum flavum and facet arthropathy. There is ztmo-ty-hssswqxznwvxrr canal narrowing. Moderate right and left neural foraminal narrowing,right greater than left. L4-L5: Retrolisthesis of L4 on L5. Circumferential disc bulge and a superimposed central disc protrusion with an annular fissure. There is thickening of ligamentum flavum and facet arthropathy. Svth-xm-nxcsksas spinal canal narrowing. There is bilateral subarticular zone narrowing,left greater than right. Moderate to severe right and rxpy-ps-pabkhjnt leftneural foraminal narrowing. Mass effect on the [...] Berto Panchal D.O. AP: CARMINA Report ID: [id number] Reading Location: [place] [address] REPORT ELECTRONICALLY SIGNED IN OTHER VENDOR SYSTEM us Kely Tijerina NP IMG MRI PROCEDURES Final Re sult * MRI Cervical Spine WO Contrast (10/23/2019 6:20 AM PRINTING MACHINE OPERATOR) Anatomical Region Laterality Modality Spine N/A Magnetic Resonan ce 10/24/2019 11:4 1 AM PRINTING MACHINE OPERATOR Narrative 10/24/2019 11:53 AM PRINTING MACHINE OPERATOR Patient Name: TRAMAIEN MARIN JR ?Ordering Dr: Kely Tijerina ANP ?? D.O.B: 1970 ? Exam Date: 10/23/ ?? 0620 ?? Age: 48 ?Sex: Male ? MR#: [id number] ?? Loc: ? RADIOLOGY REPORT ?? Order #[id number] ?? Magnetic Resonance Imaging ? MRI Cervical [...] at ?? C4-C5 and C6-C7. ? DISCS: Huty-qn-txwfekcj disc desiccation and height loss at C5-C6 [...] spurring and facet ?? arthropathy resulting in zcpq-cn-ermuwjbx left and moderate to severe right ?? [...] T: ??10/24/2019 11:53 AM ? Report ID: [id number] ?? Reading Location: ??[id number] ? REPORT ELECTRONICALLY SIGNED IN OTHER VENDOR SYSTEM ?? Resulting Agency Comment O Procedure Note Berto Panchal DO - 10/24/2019 Patient Name: TRAMAINE MARIN [facility] Dr: Kely Tijerina D.O.B: 1970 Exam Date: 10/23/19619 Age: 48 Sex: Male MR#: [id number] Loc: RADIOLOGY REPORT Order #[id number] Magnetic Resonance Imaging MRI Cervical Signed EXAM [...] to lesser extentat C4-C5 and C6-C7. DISCS: Zmoa-rq-idqbtxzp disc desiccation and height loss at C5-C6 [...] Uncovertebral spurring and facet arthropathy resulting in mtgf-nz-slpwlbja left and moderate to severeright neural foraminal [...] Berto Panchal D.O. AP: CARMINA Report ID: [id number] Reading Location: [place] [address] REPORT ELECTRONICALLY SIGNED IN OTHER VENDOR SYSTEM us Kely Tijerina [employer] IMG MRI PROCEDURES Final Re sult * XR Spine Cervical Complete 4 or 5 Views (10/11/2019 8:07 AM PRINTING MACHINE OPERATOR) Anatomical Region Laterality Modality Spine N/A Radiographic Riddhi ging 10/11/2019 12:5 5 PM PRINTING MACHINE OPERATOR Narrative 10/11/2019 1:00 PM PRINTING MACHINE OPERATOR Patient Name: TRAMAINE MARIN JR ?Ordering Dr: Kely Tijerina ?? D.O.B: 1970 ? Exam Date: 10/11/19 ?? 0807 ?? Age: 48 ?Sex: Male ? MR#: [id number] ?? Loc: ? RADIOLOGY REPORT ?? Order #[id number] ?? Radiology ? Cervical Spine 4 View [...] T: ??10/11/2019 12:57 PM ? Report ID: [id number] ?? Reading Location: ??[id number] ? REPORT ELECTRONICALLY SIGNED IN OTHER VENDOR SYSTEM ?? Resulting Agency Comment O Procedure Note Alonso Gould MD - 10/11/2019 Patient Name: TRAMAINE MARIN Dr: Kely TijerinaO.B: 1970 Exam Date: 10/11/1907 Age: 48 Sex: Male MR#: [id number] Loc: RADIOLOGY REPORT Order #[id number] Radiology Cervical Spine 4 View Min Signed [...] Electronically signed by Alonso GRAHAM Report ID: [id number] Reading Location: [place] [address] REPORT ELECTRONICALLY SIGNED IN OTHER VENDOR SYSTEM [...] 06/02/2021 added in this encounter Care Teams Lip Reading Teacher Relationship Specialty Start Date End Date Elton De La Fuente MD PCP - General Family Medicine 09/04/19 12/03/19 documented as of this encounter
--- OUTSIDE RECORDS SUMMARY | 2024-09-25 08:44 | XMS_ITS | Encounter Summary ---
Author Organization 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
--- OUTSIDE RECORDS SUMMARY | 2024-09-25 08:44 | XMS_ITS | Encounter Summary ---
Author Organization [facility] Healthcare Address [address] [place] [address] Care Team Providers Care Applications Programmer Analyst Name Role Phone Unavailable Primary Care Provider Unavailabl e Encounter Details Date Type Department Care Team (Latest Contact Info) Description 10/09/2016 11:44 PM WORKERS COMPENSATION MANAGER - 10/10/2016 3:50 AM WORKERS COMPENSATION MANAGER Hospital Encounter [facility] Lennox Napier MD [address] [place] [address] Uncomplicated alcohol abuse; Nicotine dependence, uncomplicated Social History Tobacco Use Types Packs/Day Years Used Date Smoking Tobacco: Never Assessed Sex and Gender Information Value Date Recorded Sex Assigned at Not on file Legal Sex Male 6:34 PM WORKERS COMPENSATION MANAGER Gender Identity Not on file Sexual Orientation Not on file documented as of this encounter Last Filed Vital Signs Vital Sign Reading Time Taken Comments Blood Pressure 109/80 10/09/2016 11:47 PM WORKERS COMPENSATION MANAGER Pulse 102 10/09/2016 11:47 PM WORKERS COMPENSATION MANAGER Temperature 36.4 ??C (97.5 ??F) 10/09/2016 11:[address] Respiratory Rate - - Oxygen Saturation 95% 10/09/2016 11:47 PM WORKERS COMPENSATION MANAGER Inhaled Oxygen Concentration - - Weight 91.4 kg (201 lb 8 oz) 10/09/2016 11:47 PM WORKERS COMPENSATION MANAGER Height 182.9 cm (6') 10/09/2016 11:47 PM WORKERS COMPENSATION MANAGER Body Mass Index 27.33 10/09/2016 11:47 PM WORKERS COMPENSATION MANAGER documented in this encounter Plan of Treatment Not on file documented as of this encounter Procedures Procedure Name Priority Date/Time Associated Diagnosis Comments CBC WITH AUTO DIFFERENTIAL Routine 10/10/2016 1:57 AM WORKERS COMPENSATION MANAGER ETHANOL Routine 10/10/2016 1:57 AM WORKERS COMPENSATION MANAGER COMPREHENSIVE METABOLIC PANEL Routine 10/10/2016 1:57 AM WORKERS COMPENSATION MANAGER XR CHEST PA LATERAL 2 VIEWS Routine 10/10/2016 12:00 AM WORKERS COMPENSATION MANAGER documented in this encounter Results * (ABNORMAL) Comprehensive metabolic panel (10/10/2016 1:57 AM WORKERS COMPENSATION MANAGER) [facility] Sodium 143 135 - 145 mmol/L 10/10/2016 2:26 AM [employer] HISTORICAL RESULTS Potassium 3.8 3.3 - 5.1 mmol/L 10/10/2016 2:26 AM [employer] HISTORICAL RESULTS Chloride 102 96 - 108 mmol/L 10/10/2016 2:26 AM [employer] HISTORICAL RESULTS Carbon Dioxide 27 22 - 32 mmol/L 10/10/2016 2:26 AM [employer] HISTORICAL RESULTS Anion Gap 14 7 - 16 10/10/2016 2:26 AM [employer] HISTORICAL RESULTS Glucose 108(H) 70 - 100 mg/dL 10/10/2016 2:26 AM [employer] HISTORICAL RESULTS BUN 9 6 - 20 mg/dL 10/10/2016 2:26 AM [employer] HISTORICAL RESULTS Creatinine 1.1 0.5 - 1.3 mg/dL 10/10/2016 2:26 AM [employer] HISTORICAL RESULTS Comment: NOTE: Estimated GFR (Cockroft-Gault) will NOT be calculated unless patient Height and Weight were entered. Also, Kidney Disease Stage (GFR) and Estimated GFR (Cockroft-Gault) will NOT be calculated if Creatinine result is <0.2. Kidney Disease Stage 77 mL/MIN 10/10/2016 2:26 AM [employer] HISTORICAL RESULTS Comment: NOTE; ??The GFR is [...] GFR (Cockcroft-G) 100 ml/MIN 10/10/2016 2:26 AM [employer] HISTORICAL RESULTS Comment: Estimated GFR(Cockroft-Gault)is used to calculate patient medication dosage Calcium 8.9 8.6 - 10.0 mg/dL 10/10/2016 2:26 AM [employer] HISTORICAL RESULTS Total Protein 7.4 6.4 - 8.3 g/dL 10/10/2016 2:26 AM [employer] HISTORICAL RESULTS Albumin 4.5 3.5 - 5.2 g/dL 10/10/2016 2:26 AM [employer] HISTORICAL RESULTS Globulin 2.9 2.3 - 3.5 gm/dL Albumin/Globulin Ratio 1.6 1.1 - 1.8 10/10/2016 2:26 AM [employer] HISTORICAL RESULTS Total Bilirubin 0.4 0.0 - 1.2 mg/dL 10/10/2016 2:26 AM [employer] HISTORICAL RESULTS AST 22 0 - 40 U/L 10/10/2016 2:26 AM [employer] HISTORICAL RESULTS ALT 25 0 - 41 U/L 10/10/2016 2:26 AM [employer] HISTORICAL RESULTS Alkaline Phosphatase 90 40 - 129 U/L 10/10/2016 2:26 AM WORKERS COMPENSATION MANAGER [facility] [employer] HISTORICAL RESULTS 10/10/2016 1:57 AM [facility] 10/10/2016 2:00 AM WORKERS COMPENSATION MANAGER us Lennox Napier MD LAB BLOOD ORDERABLES Final Resu lt [employer] HISTORICAL RESULTS * (ABNORMAL) CBC with auto differential (10/10/2016 1:57 AM WORKERS COMPENSATION MANAGER) WBC 9.7 4.6 - 10.2 x10 3/ul 10/10/2016 2:03 AM WORKERS COMPENSATION MANAGER [employer] HISTORICAL RESULTS RBC 5.76(H) 4.11 - 5.71 x10 6/ul 10/10/2016 2:03 AM WORKERS COMPENSATION MANAGER [employer] HISTORICAL RESULTS Hemoglobin 17.4(H) 13.0 - 17.0 g/dl 10/10/2016 2:03 AM WORKERS COMPENSATION MANAGER [employer] HISTORICAL RESULTS Hct 50.5(H) 38.2 - 48.5 % 10/10/2016 2:03 AM WORKERS COMPENSATION MANAGER [employer] HISTORICAL RESULTS MCV 87.7 80.0 - 97.0 fl 10/10/2016 2:03 AM WORKERS COMPENSATION MANAGER [employer] HISTORICAL RESULTS MCH 30.2 27.0 - 31.2 pg 10/10/2016 2:03 AM WORKERS COMPENSATION MANAGER [employer] HISTORICAL RESULTS MCHC 34.5 31.8 - 35.4 g/dl 10/10/2016 2:03 AM WORKERS COMPENSATION MANAGER [employer] HISTORICAL RESULTS RDW 12.8 11.6 - 14.8 % 10/10/2016 2:03 AM [employer] HISTORICAL RESULTS Plt Count 224 124 - 400 x10 3/ul 10/10/2016 2:03 AM WORKERS COMPENSATION MANAGER [employer] HISTORICAL RESULTS MPV 10.7(H) 7.4 - 10.4 fl 10/10/2016 2:03 AM WORKERS COMPENSATION MANAGER [employer] HISTORICAL RESULTS Neut % 65.3 37.0 - 85.0 % 10/10/2016 2:03 AM WORKERS COMPENSATION MANAGER [employer] HISTORICAL RESULTS Immature Gran % 0.4 0.0 - 3.0 % 10/10/2016 2:03 AM [employer] HISTORICAL RESULTS Lymph % 27.3 5.0 - 45.0 % 10/10/2016 2:03 AM WORKERS COMPENSATION MANAGER [employer] HISTORICAL RESULTS [place] % 5.9 3.0 - 15.0 % 10/10/2016 2:03 AM [employer] HISTORICAL RESULTS Eos % 0.8 0.0 - [...] - 0.2 x10 3/ul 10/10/2016 1:57 AM WORKERS COMPENSATION MANAGER 10/10/2016 2:00 AM [facility] Lennox Napier MD LAB BLOOD ORDERABLES Final Resu lt [facility] HISTORICAL RESULTS * Ethanol (10/10/2016 1:57 AM WORKERS COMPENSATION MANAGER) Ethyl Alcohol 199 mg/dL Comment:% = mg/dL x .001 10/10/2016 1:57 AM WORKERS COMPENSATION MANAGER 10/10/2016 2:00 AM [facility] Lennox Napier MD LAB BLOOD ORDERABLES Final Resu lt [facility] HISTORICAL RESULTS * XR Chest Pa Lateral 2 Views (10/10/2016 12:00 AM WORKERS COMPENSATION MANAGER) Anatomical Region Laterality Modality Body, Chest N/A Radiographic Riddhi ging 10/10/2016 Narrative 10/10/2016 1:27 AM WORKERS COMPENSATION MANAGER Examination: Chest radiograph History: Cough for 2 [...]
--- OUTSIDE RECORDS SUMMARY | 2024-09-25 08:44 | XMS_ITS | Encounter Summary ---
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
--- OUTSIDE RECORDS SUMMARY | 2024-09-25 08:44 | XMS_ITS | Encounter Summary ---
Author Organization [facility] Address [address] [place] [address] Care Team Providers Care Security Associate Name Role Phone Elton De La Fuente MD Primary Care Provider [phone] Reason for Referral * Injectables (Routine) - Closed Specialty Diagnoses / Procedures Referred By Contac t Referred To Contact Diagnoses Myalgia, other site Procedures Trigger Point Injection Kely Tijerina NP Phone: tel: fax: [facility] Referral ID Status Reason Start Date Expiration Date Visits Re quested Visits Authorized [id number] Closed 09/11/2019 03/22/2021 1 1 ITURE BUILDER * Injectables (Routine) - Closed Specialty Diagnoses / Procedures Referred By Contac t Referred To Contact Diagnoses Myalgia, other site Procedures Trigger Point Injection Kely Tijerina NP Phone: tel: fax: [facility] Referral ID Status Reason Start Date Expiration Date Visits Re quested Visits Authorized [id number] Closed 09/11/2019 03/22/2021 1 1 ITURE BUILDER * Diagnostic Imaging (Routine) - Closed Specialty Diagnoses / Procedures Referred By Contac t Referred To Contact Diagnoses Lumbar spondylosis Procedures XR Spine Lumbar W Bending 6 or More Views Kely Tijerina NP Phone: tel: fax: [facility] [address] [place] [address] Referral ID Status Reason Start Date Expiration Date Visits Re quested Visits Authorized [id number] Closed 09/05/2019 03/16/2021 1 1 ITURE BUILDER Reason for Visit * Reason Comments Pain Encounter Details Date Type Department Care Team (Late st Contact Info) Description 09/11/2019 9:30 AM FURNITURE BUILDER Office Visit [facility] Orthopedics and Sports Medicine [address] [facility] [address] [place] [address] Kely Tijerina NP [address] [facility] [address] [place] [address] Lumbar spondylosis; Myalgia, other site Social History Tobacco Use Types Packs/Day Years Used Date Smoking Tobacco: Every Day Cigarettes 0.1 20 Alcohol Use Standard Drinks/Week Comments Not Currently 0 (1 standard drink = 0.6 oz pur e alcohol) Recovering alcoholic-whiskey Sex and Gender Information Value Date Recorded Sex Assigned at Not on file Legal Sex Male 6:34 PM FURNITURE BUILDER Gender Identity Not on file Sexual Orientation Not on file 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 He has tried child care nurse in [place] which did not help with pain reduction. [...] 2019, impression per radiologist Dr. Trung Garcia: Qxzw-ot-nsbhaifd lumbar spondylosis, without acute radiographic abnormality. Procedure: [...] History: Social History Occupational History ??? 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 Smoking status: Current [...] Encounters: 09/11/19 25.23 kg/m?? Kely Tijerina NP ITURE BUILDER documented in this encounter Plan of Treatment Not on file documented as of this encounter Procedures Procedure Name Priority Date/Time Associated Diagnosis Comments MT INJECTION SINGLE/RESIDENTIAL REAL ESTATE APPRAISER TRIGGER POINT 1/2 MUSCLES Routine 09/11/2019 9:30 AM FURNITURE BUILDER Myalgia, other site MT INJECTION SINGLE/RESIDENTIAL REAL ESTATE APPRAISER TRIGGER POINT 1/2 MUSCLES Routine 09/11/2019 9:30 AM FURNITURE BUILDER Myalgia, other site documented in this encounter Results * XR Spine Lumbar W Bending 6 or More Views (09/11/2019 9:34 AM FURNITURE BUILDER) Anatomical Region Laterality Modality Spine N/A Radiographic Riddhi ging 09/12/2019 10:5 3 AM FURNITURE BUILDER Narrative 09/12/2019 10:55 AM FURNITURE BUILDER Patient Name: TRAMAINE MARIN JR ?Ordering Dr: Kely Tijerina ANP ?? D.O.B: 1970 ? Exam Date: 09/11/19 ?? 0934 ?? Age: 48 ?Sex: Male ? MR#: [id number] ?? Loc: ? RADIOLOGY REPORT ?? Order #[id number] ?? Radiology ? Lumbar Spine Bending 6 [...] unchanged in height. ??There is multilevel ?? syzz-ty-vcyybcxy facet arthropathy, greatest within the lower lumbar spine. ? There is mild diffuse degenerative disc disease, moderate at the L4-L5 level. ? IMPRESSION: ??Ikkf-pn-tusdnkoj lumbar spondylosis, without acute radiographic ?? abnormality. ? THIS IS AN ELECTRONICALLY VERIFIED FINAL REPORT ?? 09/12/2019 10:55 AM - Electronically signed by Trung Garcia M.D. ?? Trung Garcia M.D. ? RT ?? D: ??09/12/2019 10:55 AM ?? T: ? Report ID: [id number] ?? Reading Location: ??[id number] ? REPORT ELECTRONICALLY SIGNED IN OTHER VENDOR SYSTEM ?? Resulting Agency Comment O Procedure Note Trung Garcia MD - 09/12/2019 Patient Name: TRAMAINE MARIN Mitzi Dr: Kely Tijerina D.O.B: 1970 Exam Date: 09/11/19 0934 Age: 48 Sex: Male MR#: [id number] Loc: RADIOLOGY REPORT Order #[id number] Radiology Lumbar Spine Bending 6 Vw Min [...] are unchanged in height. There is multilevel sesd-lk-isoyahmi facet arthropathy, greatest within the lower lumbarspine. There is mild diffuse degenerative disc disease, moderate at the L4-O3rrbiz. IMPRESSION: Cyym-aq-hviakszq lumbar spondylosis, without acuteradiographic abnormality. THIS IS AN ELECTRONICALLY VERIFIED FINAL REPORT 09/12/2019 10:55 AM - Electronically signed by Trung Garcia M.D. RT T: Report ID: [id number] Reading Location: [place] [address] REPORT ELECTRONICALLY SIGNED IN OTHER VENDOR SYSTEM us Kely Tijerina NP IMG XR PROCEDURES Final Res ult * MT INJECTION SINGLE/RESIDENTIAL REAL ESTATE APPRAISER TRIGGER POINT 1/2 MUSCLES (09/11/2019 9:30 AM FURNITURE BUILDER) Kely Man NP - 09/11/2019 9:30 AM FURNITURE BUILDER Kely Tijerina NP ? 09/12/2019 ??9:30 PM [...] with no immediate complications us Kely Tijerina TALENT PROGRAM MANAGER IN CLINIC/BEDSIDE ORDERABLE S Final Result * MT INJECTION SINGLE/RESIDENTIAL REAL ESTATE APPRAISER TRIGGER POINT 1/2 MUSCLES (09/11/2019 9:30 AM FURNITURE BUILDER) Kely Man NP - 09/11/2019 9:30 AM FURNITURE BUILDER Kely Tijerina NP ? 09/12/2019 ??9:30 PM [...] with no immediate complications us Kely Tijerina TALENT PROGRAM MANAGER IN CLINIC/BEDSIDE ORDERABLE S Final Result documented [...] doseIndications:Myalgia, other site Given 09/11/2019 10:54 AM FURNITURE BUILDER 60 mg lidocaine (XYLOCAINE) 10 mg/mL (1 %) injection 2 mL 2 mL, One-Time Injection, Starting on Mon09/11/19 at 1052, For 1 dose, Indications: Administration of Local AnesthesiaIndications:Administrati on of Local Anesthesia Given 09/11/2019 10:52 AM FURNITURE BUILDER 2 mL methylPREDNISolone acetate (DEPO-medrol) injection 80 mg 80 mg, intra-articular, One-Time Injection, Starting on Mon09/11/19 at 1052, For 1 doseIndications:Myalgia, other site Given 09/11/2019 10:52 AM FURNITURE BUILDER 80 mg documented in this encounter Care Teams Security Associate Relationship Specialty Start Date End Date Elton De La Fuente MD PCP - General Family Medicine 09/04/19 12/03/19 documented as of this encounter
--- NOTE | 2024-09-25 12:31 | PC.NURSE ---
FINAL BLOOD CULTURE REPORT; NO GROWTH AFTER 5 DAYS.
== END 2024-09-18 18:25 | disposition short-term general hospital (02) ==
PROVIDERS: Emergency Provider Emergency Medicine; PCP Family Medicine
DX: L02.818 Cutaneous abscess of other sites (principal); F17.210 Nicotine dependence, cigarettes, uncomplicated; Z20.822 Contact with and (suspected) exposure to COVID-19; Z79.899 Other long term (current) drug therapy
CPT/HCPCS: 36415; 72129; 72132; 80053; 83605; 85027; 85055; 85610; 85652; 85730; 86140; 87040; 87637; 96365; 96372; 99284; A9270; J0696; J2003; J3370; Q9967

== ENCOUNTER 2024-10-07 16:50 | Outpatient (CLI) | payer BC, SELFPAY ==
[2024-10-07 17:11] LABS: Basophils Absolute Auto 0.05 K/mm3 (0.00-0.10); Basophils Percent Auto 0.6 % (0.0-1.0); Eosinophils Absolute Auto 0.09 K/mm3 (0.02-0.50); Hematocrit 42.6 % (40.0-54.0); Hemoglobin 13.7 g/dL (14.0-18.0); Immature Granulocyte Absolute 0.03 K/mm3 (0.00-0.00); Immature Granulocyte Percent A 0.3 % (0.0-0.0); Lymphocytes Absolute Auto 2.26 K/mm3 (1.10-4.50); Lymphocytes Percent Auto 25.1 % (18.0-42.0); Mean Corpuscular HGB Conc 32.2 g/dL (32-36); Mean Corpuscular Hemoglobin 28.4 pg (27.0-31.0); Mean Corpuscular Volume 88.4 fL (78.0-102.0); Mean Platelet Volume 11.1 fl (8.7-11.0); Monocytes Absolute Auto 0.68 K/mm3 (0.10-0.90); Monocytes Percent Auto 7.5 % (2.0-11.0); Neutrophils Absolute Auto 5.91 K/mm3 (1.70-7.20); Neutrophils Percent Auto 65.5 % (50.0-70.0); Platelet Count Result 243 K/mm3 (150-420); Red Blood Count 4.82 M/mm3 (4.70-6.10); Red Cell Distribution Width 12.9 % (11.6-14.4)
[2024-10-07 17:56] LABS: Alanine Aminotransferase 47 U/L (16-63); Alkaline Phosphatase 101 U/L (46-116); Anion Gap 11 mmol/L (4-12); Aspartate Amino Transferase 29 U/L (15-37); Bilirubin,Total 0.5 mg/dL (0.00-1.00); Blood Urea Nitrogen 12 mg/dL (7-18); Calcium 9.3 mg/dL (8.5-10.1); Carbon Dioxide 30 mmol/L (21-32); Chloride 103 mmol/L (98-108); Estimated Glomerular Filt Rate > 60; Glucose 117 mg/dL (70-99); Osmolality Calculated 298 mOsm/kg (285-295); Potassium 3.8 mmol/L (3.5-5.1); Sodium 144 mmol/L (136-145); Total Protein 7.5 g/dL (6.4-8.2)
== END 2024-10-07 16:51 | disposition home or self-care (01) ==
PROVIDERS: PCP Family Medicine; Visit Provider Family Medicine
DX: L03.90 Cellulitis, unspecified (principal); T81.49XD Infection following a procedure, other surgical site, subsequent encounter; I10 Essential (primary) hypertension; L08.9 Local infection of the skin and subcutaneous tissue, unspecified
CPT/HCPCS: 36415; 80053; 85025

== ENCOUNTER 2024-10-21 14:05 | Outpatient (CLI) | payer BC, SELFPAY ==
--- NOTE | ~2024-10-21 | XR_ITS ---
EXAMINATION: XR lumbar spine 2-3V DATE: 10/21/2024 14:19 INDICATION: Arthrodesis status. TECHNIQUE: 3 views of lumbar spine were obtained. COMPARISON: Lumbar spine radiographs 11/01/16 FINDINGS: There is 4 degrees dextrocurvature of lumbar spine. There is mild chronic anterior wedging of T11, T12, and T1 vertebral bodies. There is mildly decreased disc height at L1-L2 and L2-L3. There are changes of anterior fusion procedure at L3-L4 with interbody device. There is severely decreased disc height at L4-L5 with interbody fusion. There are changes of posterior fusion procedure from L3 to L5 with pedicle screws. IMPRESSION: 1. Mild lumbar spondylosis. 2. Anterior and posterior fusion from L3 to L5. Reviewed, dictated and finalized at location [facility]. [facility]
--- OUTSIDE RECORDS SUMMARY | 2024-10-21 14:53 | XMS_ITS | Patient Health Record ---
Author Organization [facility] Address [address] [place] [address] Care Team Providers Care International Exchange Coordinator Name Role Phone Kevin Brody MD Unavailable Unavailable Sue Davis Unavailable [phone] Twan Castillo Unavailable [phone] Bailey Vo PA-C Unavailable [phone] Hillary Staples Unavailable [phone] Allergies Allergen (clinical drug ingredient) Drug/Non Drug [...] Status W/U Status Risk Notes Problem Cervicalgia (74666886) Cervicalgia (M54.2) Active confirmed Problem Cervical spondylosis (084027587) Cervical spondylosis (M47.812) Active confirmed Problem Sacroiliitis (79839366) Sacroiliitis (M46.1) Active confirmed Problem Cervical radiculopathy (62077747) Cervical radiculopathy (M54.12) Active confirmed Problem Post-laminectomy syndrome (16425309) Post laminectomy syndrome (M96.1) Active confirmed Problem Low back pain (507268471) Low back pain (M54.50) Active confirmed Vital Signs Heart Rate 81 /min 08/05/2024 Height-cm 177.8 cm 08/05/2024 Blood pressure diastolic 89 mm Hg 08/05/2024 Weight-kg 79.38 kg 08/05/2024 Height 70 in 08/05/2024 Blood pressure systolic 153 mm Hg 08/05/2024 Weight 175 lbs 08/05/2024 BMI 25.11 kg/m2 08/05/2024 Encounters Encounter Location Date Provider Diagnosis [facility] [address] [place] [address] 02/07/2024 Twan Castillo [facility] [address] [place] [address] 02/14/2024 Twan Castillo [facility] [address] [place] [address] [address] [place] [address] 03/13/2024 Twan Castillo [facility] [address] [place] [address] 03/20/2024 Twan Castillo [facility] [address] [place] [address] [address] [place] [address] 05/28/2024 Hillary Staples Low back pain M54.50 ; Post laminectomy syndrome M96.1 ; Sacroiliitis M46.1 ; Cervicalgia M54.2 and Other parts counterman (current) drug therapy Z79.899 [facility] [address] [place] [address] 08/05/2024 Bailey Vo Low back pain M54.50 ; Post laminectomy syndrome M96.1 ; Sacroiliitis M46.1 ; Cervicalgia M54.2 ; Cervical spondylosis M47.812 and Cervical radiculopathy M54.12 [facility] [address] [place] [address] 05/28/2024 Twan Castillo [facility] [address] [place] [address] 06/27/2024 Twan Castillo [facility] [address] [place] [address] 08/05/2024 Sue Davis Assessments Encounter Date Diagnosis [...] 08/05/2024 Sacroiliitis (ICD-10 - M46.1) 05/28/2024 Other parts counterman (current) drug therapy (ICD-10 - Z79.899) 08/05/2024 [...] Insured Coverage Start Date Coverage End Date [facility] [address] [place] [address] [id number] Tramaine Marin Self - patient is the insured Medical (General) History Medical History History ICD Code COPD Kidney stones Alcoholism- recovery Depression and anxiety Surgical History Surgery Date(Month/Year) ACDF 2020 lumbar decompression/laminectomy surgery at L4-5 level 2020 Hospitalization History Reason Date(Month/Year) no hospitalization since last visit
--- OUTSIDE RECORDS SUMMARY | 2024-10-21 14:53 | XMS_ITS | Clinical Summary ---
Author Organization [facility] Address [address] [place] [address]. [place] [address] [place] [address] Care Team Providers Care Special Event Assistant Name Role Phone Elton De La Fuente MD Primary Care Provider [phone] Allergies Active Allergy Reactions Criticality Noted Date [...] season) 2024 Influenza Adult (#1) 2024 Meningococcal B Vaccine Aged Out No l onger eligible based on patient's age to complete this topic Meningococcal Vaccine Aged Out No stacey glenroy [...] patient's age to complete this topic Insurance [facility] Care Teams Special Event Assistant Relationship Specialty Start Date End Date Elton De La Fuente MD [address] [address] PCP - General FAMILY PRACTICE 05/08/24
--- OUTSIDE RECORDS SUMMARY | 2024-10-21 14:53 | XMS_ITS ---
Author Organization [facility] Address [address] [place] [address] [address] [place] [address] Care Team Providers Care Beauty Culturist Name Role Phone Kevin Brody MD Unavailable Unavailable Bailey Vo PA-C Unavailable REASON FOR VISIT meds Encounters Encounter Location Date Provider Diagnosis [facility] [address] [place] [address] 09/05/2024 Bailey Vo Plan Of Treatment No Information Progress Notes * Tramaine MARIN LDOB:1970 (53 yo M)Acc No.[id number]:09/05/2024 Progress Notes Patient:?Tramaine MARIN Appointment Provider:?CLAUDIA Valentino :1970???Age:53 Y???Sex:Male Andrew e:09/05/2024 Phone: Address:[address] [place], [place] [id number] Subjective: * Chief Complaints: * ???1. Meds. * Medical History:? Objective: * Vitals:? Assessment: Plan: * Treatment: * Billing Information: * Visit Code:? * Procedure Codes:? * Electronic signature of CLAUDIA Banks PA-C on 10/21/2024 at 02:53 PM RIVER EXPEDITION GUIDE Sign off status: Pending * Appointment Provider:?CLAUDIA Valentino Date:?09/05/2024 Generated for Printing/Faxing/eTransmitting on:?10/21/2024 02:53 PM RIVER EXPEDITION GUIDE
--- OUTSIDE RECORDS SUMMARY | 2024-10-21 14:53 | XMS_ITS | Clinical Summary ---
Author Organization [facility] Address [address] [place] [address] Care Team Providers Care Lifeguard Name Role Phone Elton De La Fuente MD Primary Care Provider [phone] Allergies Active Allergy Reactions Criticality Noted Date Comments Pseudoephedrine Other (See comments) Low [facility]02[facility]2021 [facility] methocarbamoL (ROBAXIN) 750 mg tablet Take 1 tablet (750 mg total) by mouth 3 (three) times a day Active oxyCODONE-acetamin ophen (PERCOCET) 5-325 mg per tabletIndications: [...] for nausea or vomiting 09/24/20 24 Active cefdinir (OMNICEF) 300 mg capsule Take 1 capsule (300 mg total) by mouth 2 (two) times a day 11/01/19 25 Active pregabalin (LYRICA) 75 mg capsule Take 1 capsule (75 mg total) by mouth 2 (two) times a day 6 capsule 10/05/19 25 Active oxyCODONE-acetamin ophen (PERCOCET) 5-325 mg per tabletIndications: Pain Take 1 tablet by mouth every 4 (four) hours as needed for pain 024 Discontinued pregabalin (LYRICA) 75 mg capsule Take 1 capsule (75 mg total) by mouth 2 (two) times a day 025 Discontinued Active Problems Problem Noted Date Diagnosed Date Wound infection 09/18/2024 Cellulitis 09/18/2024 Lumbar stenosis with neurogenic claudication Emphysema lung 07/23/2024 Tobacco use 07/23/2024 Encounters Date Type Department Care Team Description 10/17/2024 8:34 AM VEGETABLE GROWER - 10/17/2024 11:59 PM VEGETABLE GROWER Hospital Encounter [facility] - Interventional Radiology [address] [place] [phone] Infection following a procedure, other surgical site, subsequent encounter Discharge Disposition: Discharge to home or self care 09/19/2024 10:31 AM VEGETABLE GROWER Anesthesia Event [facility] Operating Room [address] [place] [phone] Stephenie Rodriguez DO Tynes, Jessika Olegovna, CRNA 09/19/2024 10:03 AM VEGETABLE GROWER - 09/19/2024 12:08 PM VEGETABLE GROWER Surgery [facility] Operating Room [address] [place] [phone] Kevin Brody MD INCISION AND DRAINAGE - LUMBAR 09/18/2024 7:53 PM VEGETABLE GROWER - 10/05/2024 11:00 AM VEGETABLE GROWER Hospital Encounter [facility] [address] [place] [phone] Kita Astudillo MD Willis, Devin Ray, MD Sufi, MD Yessica Vigil, MD Pattie Hicks Saad, MD Hammes, MD Good Chapman Renu, MD Wound infection (Primary Dx); Cellulitis of other specified site; Cellulitis, unspecified cellulitis site [L03.90]; Lumbar stenosis with neurogenic claudication [M48.062] Discharge Disposition: Discharge to home or self care 09/18/2024 Orders Only [address] [phone] Kita Astudillo MD 09/17/2024 Patient Self-Triage [facility] [place] [address] Mychart, Generic Provider 08/13/2024 7:30 AM VEGETABLE GROWER - 08/13/2024 12:30 PM VEGETABLE GROWER Surgery [facility] Operating Room [address] [place] [phone] Kevin Brody MD L3-5 Decompressive Laminectomy, Posterior Lumbar Interbody Fusion using Zavation EZ Span Cage, Mathew Screws, Local Autograph and L4-5 Repeat Discectomy 08/13/2024 7:26 AM VEGETABLE GROWER Anesthesia Event [facility] Operating Room [address] [place] [phone] Jason Christianson MD Salameh, Besan Mohammed, PA 08/13/2024 5:41 AM VEGETABLE GROWER - 08/14/2024 12:58 PM VEGETABLE GROWER Hospital Encounter [address] [phone] Kevin Brody MD Pseudoclaudication syndrome Discharge Disposition: Discharge to home or self care 08/13/2024 Orders Only [facility] Operating Room [address] [place] [phone] Kevin Brody MD 07/30/2024 10:15 AM VEGETABLE GROWER Office Visit [facility] [address] [address] Hunter Smith MD Preop cardiovascular exam (Primary Dx); Tobacco abuse; Lipid screening 07/23/2024 8:45 AM CDT Pre-Admission Testing [facility] Pre Anesthesia Testing [address] [place] [phone] Preoperative testing (Primary Dx) 07/23/2024 Telephone [facility] Anesthesia [address] [place] [phone] Ara Robbins, ROO[place]EL[place] from Last 3 Months Immunizations Name Administration Dates Next Due Influenza, Trivalent, Preservative Free, Intramu scular 09/21/2024 Surgical History Surgery Date Site/Laterality Comments EYE SURGERY Bilateral as young child ANTERIOR CERVICAL DISCECTOMY W/ FUSION 09/25/2021 - 09/24/2022 MICRODISCECTOMY LUMBAR 09/25/2017 - 09/24/2018 IR PICC LINE PLACEMENT > 5 YEARS 10/17/2024 N/A Medical History Medical History Date Comments Kidney [...] 0.6 oz pur e alcohol) Recovering alcoholic-whiskey [facility] Utilities Answer Date Recorded In the past 12 months has [employer], gas, oil, or water company threatened to shut off services in your [...] 09/19/2024 How often do you attend chur ch or christianity services? Never 09/19/2024 Do you belong to any clubs o r organizations such as taoist groups, unions, fraternal or athletic groups, or [...] any time in the past 12 m [facility], were you homeless or living in a nursing home (including now)? No 09/19/2024 Personal Safety Answer Date Recorded Have you ever been in or are you currently in a harmful physical or emotional relationship or is someone making you feel afraid or unsafe? 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 Not on file Not on file Not on file Obstetrics History Last Filed Vital Signs Vital Sign Reading Time Taken Comments Blood Pressure 173/100 10/17/2024 9:20 AM VEGETABLE GROWER Pulse 69 10/17/2024 9:20 AM VEGETABLE GROWER Temperature 37.3 ??C (99.1 ??F) 10/17/2024 8:45 AM CS T Respiratory Rate 16 10/17/2024 9:20 AM VEGETABLE GROWER Oxygen Saturation 95% 10/17/2024 9:20 AM VEGETABLE GROWER Inhaled Oxygen Concentration - - Weight 87.1 kg (192 lb) 10/17/2024 8:45 AM VEGETABLE GROWER Height 182.9 cm (6') 10/17/2024 8:45 AM VEGETABLE GROWER Body Mass Index 26.04 10/17/2024 8:45 AM VEGETABLE GROWER Plan of Treatment Health Maintenance Due Date [...] Completed 09/21/2024 Medical Devices Implanted Type Area Substitute Bus Driver Device Identifier Shelf Expiration Date Model / Serial / Lot Biocomposites Stimulan Rapid Cure Kit Paste Life Cycle Assessment Analyst 5cc 12.5cc Bone Void 620-005 - [id number] Implanted:Qty: 1 on 08/13/2024 by Kevin Brody MD at [facility] N/A: Spine Lumbar Biocom[employer]ites [id number] 04/24/2027 620-005 / / [id number] [employer] Cage Spinal Lumbar 10 Degree Tlif Expandable 7-11.5mm Titanium [id number] - [id number] Implanted:Qty: 2 on 08/13/2024 by Kevin Brody MD at [facility] N/A: Spine Lumbar [employer] [id number] / / [place] Spine 4.5mm 35mm Polyaxial Spine Screw Bone Deformity [id number] - [id number] Implanted:Qty: 6 on 08/13/2024 by Kevin Brody MD at [facility] N/A: Spine Lumbar Amina Spine [id number] 5 / / Amina Spine 4.5mm 75mm Contour Ulises Spinal Cocr [id number] - [id number] Implanted:Qty: 2 on 08/13/2024 by Kevin Brody MD at [facility] N/A: Spine Lumbar Amina Spine [id number] 5 / / [place] Spine 26mm Semiadjustable Transverse Spine Connector Ulises Posterior 3001-54796m - [id number] Implanted:Qty: 1 on 08/13/2024 by Kevin Brody MD at [facility] N/A: Spine Lumbar Amina Spine [id number] 6A / / [place] Spine 32mm Semiadjustable Transverse Spine Connector Ulises Posterior [id number] - [id number] Implanted:Qty: 1 on 08/13/2024 by Kevin Brody MD at [facility] N/A: Spine Lumbar Amina Spine [id number] 2A / / Procedures Procedure Name Priority Date/Time Associated Diagnosis Comments IR PICC LINE PLACEMENT > 5 YEARS Schedule Routine, Read Routine (OP Routine) 10/17/2024 9:26 AM VEGETABLE GROWER Infection following a procedure, other surgical site, subsequent encounter EGFR Routine 09/28/2024 5:42 AM VEGETABLE GROWER RENAL FUNCTION PANEL Routine 09/28/2024 5:42 AM VEGETABLE GROWER EGFR Routine 09/27/2024 4:57 AM VEGETABLE GROWER RENAL FUNCTION PANEL Routine 09/27/2024 4:57 AM VEGETABLE GROWER EGFR Routine 09/26/2024 5:36 AM VEGETABLE GROWER RENAL FUNCTION PANEL Routine 09/26/2024 5:36 AM VEGETABLE GROWER EGFR Routine 09/25/2024 5:49 AM VEGETABLE GROWER RENAL FUNCTION PANEL Routine 09/25/2024 5:49 AM VEGETABLE GROWER EGFR Routine 09/24/2024 7:50 AM VEGETABLE GROWER RENAL FUNCTION PANEL Routine 09/24/2024 7:50 AM VEGETABLE GROWER CBC WITHOUT DIFFERENTIAL Routine 09/24/2024 7:50 AM VEGETABLE GROWER DRUGS OF ABUSE SCREEN, URINE WITHOUT CONFIRMATION Routine 09/23/2024 6:26 PM VEGETABLE GROWER EGFR Routine 09/23/2024 6:17 AM VEGETABLE GROWER RENAL FUNCTION PANEL Routine 09/23/2024 6:17 AM VEGETABLE GROWER CBC WITHOUT DIFFERENTIAL Routine 09/23/2024 6:17 AM VEGETABLE GROWER XR CHEST 1 VIEW ED Urgent/IP Urgent 09/22/2024 12:05 PM VEGETABLE GROWER NC INSJ NON-TUNNELED CENTRAL VENOUS CATH AGE 5 YR/> Routine 09/22/2024 11:15 AM VEGETABLE GROWER Wound infection EGFR Routine 09/22/2024 8:12 AM VEGETABLE GROWER RENAL FUNCTION PANEL Routine 09/22/2024 8:12 AM VEGETABLE GROWER CBC WITHOUT DIFFERENTIAL Routine 09/22/2024 8:12 AM VEGETABLE GROWER EGFR Routine 09/21/2024 6:09 AM VEGETABLE GROWER RENAL FUNCTION PANEL Routine 09/21/2024 6:09 AM VEGETABLE GROWER CBC WITHOUT DIFFERENTIAL Routine 09/21/2024 6:09 AM VEGETABLE GROWER VANCOMYCIN LEVEL TROUGH Timed 09/20/2024 5:36 PM VEGETABLE GROWER CBC WITHOUT DIFFERENTIAL Routine 09/20/2024 5:58 AM VEGETABLE GROWER MYCOLOGY (FUNGAL) CULTURE Routine 09/19/2024 11:08 AM VEGETABLE GROWER TISSUE AEROBIC AND ANAEROBIC CULTURE AND GRAM STAIN Routine 09/19/2024 11:08 AM VEGETABLE GROWER MYCOLOGY (FUNGAL) CULTURE Routine 09/19/2024 11:07 AM VEGETABLE GROWER AEROBIC AND ANAEROBIC CULTURE AND GRAM STAIN Routine 09/19/2024 11:07 AM VEGETABLE GROWER MYCOLOGY (FUNGAL) CULTURE Routine 09/19/2024 11:07 AM VEGETABLE GROWER AEROBIC AND ANAEROBIC CULTURE AND GRAM STAIN Routine 09/19/2024 11:07 AM VEGETABLE GROWER NC AN PROCEDURE PLACEHOLDER Routine 09/19/2024 10:49 AM VEGETABLE GROWER NC AN ELECTIVE ENDOTRACHEAL AIRWAY Routine 09/19/2024 10:49 AM VEGETABLE GROWER INCISION AND DRAINAGE - BACK 09/19/2024 10:30 AM VEGETABLE GROWER LUMBAR WOUND INFECTION DIFFERENTIAL AUTO Routine 09/19/2024 1:1 9 AM VEGETABLE GROWER CBC WITH AUTO DIFFERENTIAL Routine 09/19/2024 1:19 AM VEGETABLE GROWER EGFR Routine 09/19/2024 12:55 AM VEGETABLE GROWER COMPREHENSIVE METABOLIC PANEL Routine 09/19/2024 12:55 AM VEGETABLE GROWER BLOOD CULTURE Routine 09/19/2024 12:55 AM VEGETABLE GROWER BLOOD CULTURE Routine 09/19/2024 12:55 AM VEGETABLE GROWER CBC WITHOUT DIFFERENTIAL Routine 08/14/2024 7:13 AM VEGETABLE GROWER SURGICAL PATHOLOGY Routine 08/13/2024 11:16 AM VEGETABLE GROWER FL FLUOROSCOPY < 1 HOUR IP Routine 08/13/2024 11:08 AM VEGETABLE GROWER XR SPINE LUMBAR 2 OR 3 VIEWS IP Routine 08/13/2024 11:08 AM VEGETABLE GROWER NC AN PROCEDURE PLACEHOLDER Routine 08/13/2024 7:59 AM VEGETABLE GROWER NC AN ELECTIVE ENDOTRACHEAL AIRWAY Routine 08/13/2024 7:59 AM VEGETABLE GROWER FUSION LUMBAR - POSTERIOR 2 LEVELS 08/13/2024 7:30 AM VEGETABLE GROWER Pseudoclaudication syndrome B CHECK SAMPLE STAT 08/13/2024 6:59 AM VEGETABLE GROWER POCT LIPID PANEL Routine 07/30/2024 10:33 AM VEGETABLE GROWER Lipid screening ECG 12-LEAD Routine 07/30/2024 10:22 AM VEGETABLE GROWER Preop cardiovascular exam DIFFERENTIAL AUTO Routine 07/23/2024 10:10 AM CDT Preoperative testing CBC WITH AUTO DIFFERENTIAL Routine 07/23/2024 10:10 AM CDT Preoperative testing HEMOGLOBIN A1C Routine 07/23/2024 10:10 AM CDT Preoperative testing VITAMIN D 25 HYDROXY Routine 07/23/2024 10:10 AM CDT Preoperative testing TYPE AND SCREEN Routine 07/23/2024 9:54 AM CDT Preoperative testing from Last 3 Months Results * IR PICC Line Placement Over 5 Years of Age (10/17/2024 9:26 AM VEGETABLE GROWER) Anatomical Region Laterality Modality Body N/A X-Ray Angiograph y 10/17/2024 10:2 5 AM VEGETABLE GROWER Impressions 10/17/2024 10:25 AM VEGETABLE GROWER Successful nontunneled catheter placement. PLAN: The catheter is ready for immediate use. ??When treatment is completed, this catheter can be removed at the bedside according to standard hospital protocol. ?? Electronically signed by: Patrica Garnica PA-C Narrative 10/17/2024 10:25 AM VEGETABLE GROWER EXAMINATION: ??NONTUNNELED CENTRAL VENOUS CATHETER PLACEMENT (STD) HISTORY: 53 year old male for whom peripherally inserted central venous catheter placement was requested for IV antibiotics. His prior left upper extremity PICC fell out at his nursing facility. He does request another left sided PICC. ?? PROVIDER PRESENCE: ??Patrica Garnica PA-C, was present from the beginning to the end of the procedure. ?? SEDATION: local only TECHNIQUE: ?? The risks, benefits and alternatives were discussed and informed consent was obtained. ??Prior to beginning the procedure, [place] Protocol was used to confirm the patient's identity and planned procedure. ??Fluoroscopy time has been recorded in the electronic medical record. Maximum sterile barriers including cap, mask, hand hygiene, sterile gloves, sterile gown, large sterile drape and 2% chlorhexidine for cutaneous antisepsis were used. ??The skin over the left basilic vein was sterilely prepped, draped and infiltrated with 1% lidocaine. ?? Prior to the procedure, the target vessel was evaluated by ultrasound, an image of the patent vessel recorded, and this image placed in the patient?s chart. ??After sterile prep, this vessel was accessed using realtime ultrasound guidance. A guidewire and catheter were then passed centrally using fluoroscopic guidance. ?? The intravascular length from the access site to the right atrium was assessed. After dilating the tract, a power injectable dual lumen peripherally inserted central venous catheter trimmed to 45 cm was inserted over the guidewire. The catheter was flushed with normal saline and secured in place. ??A sterile dressing was applied. ?? ESTIMATED BLOOD LOSS: Minimal. CONDITION: Stable DISCHARGED TO: recovery and then nursing facility FINDINGS: The final fluoroscopic image demonstrates the catheter with its tip at the cavoatrial junction. ??No complications are seen. Procedure Note Patrica Garnica PA - 01/23/2025 EXAMINATION: NONTUNNELED CENTRAL VENOUS CATHETER PLACEMENT (STD) HISTORY: 53 year old male for whom peripherally inserted central venous catheter placement was requested for IV antibiotics. His prior left upper extremity PICC fell out at his nursing facility. He does request another left sided PICC. PROVIDER PRESENCE: Patrica Garnica PA-C, was present from the beginning to the end of the procedure. SEDATION: local only TECHNIQUE: The risks, benefits and alternatives were discussed and informed consent was obtained. Prior to beginning the procedure, [place] Protocol was used to confirm the patient's identity and planned procedure. Fluoroscopy time has been recorded in the electronic medical record. Maximum sterile barriers including cap, mask, hand hygiene, sterile gloves, sterile gown, large sterile drape and 2% chlorhexidine for cutaneous antisepsis were used. The skin over the left basilic vein was sterilely prepped, draped and infiltrated with 1% lidocaine. Prior to the procedure, the target vessel was evaluated by ultrasound, an image of the patent vessel recorded, and this image placed in the patient?s chart. After sterile prep, this vessel was accessed using realtime ultrasound guidance. A guidewire and catheter were then passed centrally using fluoroscopic guidance. The intravascular length from the access site to the right atrium was assessed. After dilating the tract, a power injectable dual lumen peripherally inserted central venous catheter trimmed to 45 cm was inserted over the guidewire. The catheter was flushed with normal saline and secured in place. A sterile dressing was applied. ESTIMATED BLOOD LOSS: Minimal. CONDITION: Stable DISCHARGED TO: recovery and then nursing facility FINDINGS: The final fluoroscopic image demonstrates the catheter with its tip at the cavoatrial junction. No complications are seen. IMPRESSION: Successful nontunneled catheter placement. PLAN: The catheter is ready for immediate use. When treatment is completed, this catheter can be removed at the bedside according to standard hospital protocol. Electronically signed by: Patrica Garnica PA-C us Brett Green MD IMG IR PROCEDURES Fin al Result * eGFR (09/28/2024 5:42 AM VEGETABLE GROWER) eGFR >90 >=60 mL/min/1. 73 m2 Comment: [...] interpretive data was last reviewed 2021. Blood 09/28/2024 5:42 AM VEGETABLE GROWER 09/28/2024 5:54 AM VEGETABLE GROWER us Mitchell Grajeda MD LAB BLOOD ORDERABLES Final R esult [facility] [address] Department [place] [address] * (ABNORMAL) Renal function panel (09/28/2024 5:42 AM VEGETABLE GROWER) Sodium 139 135 - 145 mmol/L Potassium, pl 4.1 3.3 - 4.9 mmol/L [facility] Chloride 99 97 - 110 mmol/L [facility] CO2 27 22 - 32 mmol/L [facility] Anion gap 13 2 - 15 mmol/L [facility] BUN 15 6 - 25 mg/dL [facility] Creatinine 0.78(L) 0.80 - 1.30 mg/dL [facility] Glucose 108 70 - 199 mg/dL [facility] Comment: Interpretive Data Fasting glucose >/= [...] 2022. Calcium 9.1 8.5 - 10.3 mg/dL [facility] Phosphorus, pl 4.2 2.3 - 4.5 mg/dL [facility] Albumin 4.0 3.5 - 5.0 g/dL [facility] Blood 09/28/2024 5:42 AM VEGETABLE GROWER 09/28/2024 5:54 AM VEGETABLE GROWER us Mitchell Grajeda MD LAB BLOOD ORDERABLES Final R esult [facility] [address] [place] [address] * eGFR (09/27/2024 4:57 AM VEGETABLE GROWER) eGFR >90 >=60 mL/min/1. 73 m2 Comment: [...] interpretive data was last reviewed 2021. Blood 09/27/2024 4:57 AM VEGETABLE GROWER 09/27/2024 5:20 AM VEGETABLE GROWER us Mitchell Grajeda MD LAB BLOOD ORDERABLES Final R esult [facility] [address] Department [place] [address] * (ABNORMAL) Renal function panel (09/27/2024 4:57 AM VEGETABLE GROWER) Sodium 143 135 - 145 mmol/L Potassium, pl 4.1 3.3 - 4.9 mmol/L [facility] Chloride 103 97 - 110 mmol/L [facility] CO2 28 22 - 32 mmol/L [facility] Anion gap 12 2 - 15 mmol/L [facility] BUN 15 6 - 25 mg/dL [facility] Creatinine 0.77(L) 0.80 - 1.30 mg/dL [facility] Glucose 91 70 - 199 mg/dL [facility] Comment: Interpretive Data Fasting glucose >/= [...] interpretive data was last revised 2022. Calcium 9.4 8.5 - 10.3 mg/dL [facility] Phosphorus, pl 4.4 2.3 - 4.5 mg/dL [facility] Albumin 3.9 3.5 - 5.0 g/dL [facility] Blood 09/27/2024 4:57 AM VEGETABLE GROWER 09/27/2024 5:20 AM VEGETABLE GROWER us Mitchell Grajeda MD LAB BLOOD ORDERABLES Final R esult [facility] [address] [place] [address] * eGFR (09/26/2024 5:36 AM VEGETABLE GROWER) eGFR >90 >=60 mL/min/1. 73 m2 Comment: [...] interpretive data was last reviewed 2021. Blood 09/26/2024 5:36 AM VEGETABLE GROWER 09/26/2024 6:05 AM VEGETABLE GROWER Mitchell Grajeda MD LAB BLOOD ORDERABLES Final R esult Performing Organization Address City/[facility]/ZIP Co de Phone Number [facility] [address] Department [place] [address] * (ABNORMAL) Renal function panel (09/26/2024 5:36 AM VEGETABLE GROWER) Pathologist [facility] Sodium 139 135 - 145 mmol/L Potassium, pl 4.0 3.3 - 4.9 mmol/L [facility] Chloride 99 97 - 110 mmol/L [facility] CO2 28 22 - 32 mmol/L [facility] Anion gap 12 2 - 15 mmol/L [facility] BUN 14 6 - 25 mg/dL [facility] Creatinine 0.73(L) 0.80 - 1.30 mg/dL [facility] Glucose 95 70 - 199 mg/dL [facility] Comment: Interpretive Data Fasting glucose >/= [...] 2022. Calcium 9.1 8.5 - 10.3 mg/dL [facility] Phosphorus, pl 4.3 2.3 - 4.5 mg/dL [facility] Albumin 4.0 3.5 - 5.0 g/dL [facility] Blood 09/26/2024 5:36 AM VEGETABLE GROWER 09/26/2024 6:05 AM VEGETABLE GROWER Mitchell Grajeda MD LAB BLOOD ORDERABLES Final R esult Performing Organization Address City/[facility]/ZIP Co de Phone Number [facility] [address] Department [place] [address] * eGFR (09/25/2024 5:49 AM VEGETABLE GROWER) Pathologist [facility] eGFR >90 >=60 mL/min/1. 73 m2 Comment: [...] last reviewed 2021. Blood 09/25/2024 5:49 AM VEGETABLE GROWER 09/25/2024 6:01 AM VEGETABLE GROWER us Mitchell Grajeda MD LAB BLOOD ORDERABLES Final R esult [facility] [address] Department [place] [address] * (ABNORMAL) Renal function panel (09/25/2024 5:49 AM VEGETABLE GROWER) [facility] Sodium 142 135 - 145 mmol/L Potassium, pl 3.9 3.3 - 4.9 mmol/L [facility] Chloride 103 97 - 110 mmol/L [facility] CO2 29 22 - 32 mmol/L [facility] Anion gap 10 2 - 15 mmol/L [facility] BUN 10 6 - 25 mg/dL [facility] Creatinine 0.70(L) 0.80 - 1.30 mg/dL [facility] Glucose 88 70 - 199 mg/dL [facility] Comment: Interpretive Data Fasting glucose >/= [...] 2022. Calcium 8.8 8.5 - 10.3 mg/dL [facility] Phosphorus, pl 4.1 2.3 - 4.5 mg/dL [facility] Albumin 3.7 3.5 - 5.0 g/dL [facility] Blood 09/25/2024 5:49 AM VEGETABLE GROWER 09/25/2024 6:01 AM VEGETABLE GROWER us Mitchell Grajeda MD LAB BLOOD ORDERABLES Final R esult [facility] [address] Department [place] [address] * eGFR (09/24/2024 7:50 AM VEGETABLE GROWER) eGFR >90 >=60 mL/min/1. 73 m2 Comment: [...] last reviewed 2021. Blood 09/24/2024 7:50 AM VEGETABLE GROWER 09/24/2024 8:09 AM VEGETABLE GROWER us Mitchell Grajeda MD LAB BLOOD ORDERABLES Final R esult [facility] [address] [place] [address] * (ABNORMAL) CBC without differential (09/24/2024 7:50 AM VEGETABLE GROWER) WBC 11.4(H) 3.8 - 9.9 K/cumm Hgb 13.0 13.0 - 17.5 g/dL [facility] Hct 40.2 38.9 - 50.3 % [facility] Plt 280 150 - 400 K/cumm [facility] MPV 10.8 9.1 - 12.3 fL [facility] RBC 4.40 4.30 - 5.80 M/cumm [facility] MCV 91.4 81.3 - 96.4 fL [facility] MCH 29.5 27.1 - 33.3 pg [facility] MCHC 32.3 32.3 - 35.7 g/dL [facility] RDW CV 13.0 11.1 - 14.9 % [facility] RDW SD 43.6 35.7 - 48.1 fL [facility] NRBC abs 0.00 0.00 - 0.01 K/cumm [facility] Blood 09/24/2024 7:50 AM VEGETABLE GROWER 09/24/2024 8:10 AM VEGETABLE GROWER us Kevin Brody MD LAB BLOOD ORDERABLES Suzie l Result [facility] [address] [place] [address] * (ABNORMAL) Renal function panel (09/24/2024 7:50 AM VEGETABLE GROWER) Sodium 141 135 - 145 mmol/L Potassium, pl 4.0 3.3 - 4.9 mmol/L [facility] Chloride 101 97 - 110 mmol/L [facility] CO2 28 22 - 32 mmol/L [facility] Anion gap 12 2 - 15 mmol/L [facility] BUN 13 6 - 25 mg/dL [facility] Creatinine 0.75(L) 0.80 - 1.30 mg/dL [facility] Glucose 154 70 - 199 mg/dL [facility] Comment: Interpretive Data Fasting glucose >/= [...] 2022. Calcium 9.0 8.5 - 10.3 mg/dL [facility] Phosphorus, pl 3.7 2.3 - 4.5 mg/dL [facility] Albumin 3.9 3.5 - 5.0 g/dL [facility] Blood 09/24/2024 7:50 AM VEGETABLE GROWER 09/24/2024 8:09 AM VEGETABLE GROWER us Mitchell Grajeda MD LAB BLOOD ORDERABLES Final R esult [facility] [address] [place] [address] * (ABNORMAL) Drugs of Abuse Screen, Urine without Confirmation (09/23/2024 6:26 PM VEGETABLE GROWER) [facility] Amphetamine, ur Not Detected CutOff 500ng/mL Comment: Interpretive Data - Amphetamines: ??Samples containing greater than 500 ng/mL d-methamphetamine ??or other cross-reacting amphetamine compounds are reported as positive. ??Amphetamine immunoassays are subject to significant false positive rates due to cross-reactivity of non-amphetamine drugs. Confirmatory testing required for definitive results. Current Interpretive Data was last reviewed 2023. Barbiturates, ur Not Detected CutOff 200ng/mL [facility] Comment: Interpretive Data - Barbiturates: ??Samples containing greater than 200 ng/mL secobarbital or other cross-reacting barbiturate compounds are reported as positive. ??False positive and false negative results are possible. Confirmatory testing required for definitive results. Current Interpretive Data was last reviewed 2023. Benzodiazepines, ur Screen Positive, presumptive (A) CutOff 100ng/mL [facility] Comment: Interpretive Data - Benzodiazepines: ??Samples containing greater than 100 ng/mL nordiazepam or other cross-reacting compounds are reported as positive. False positive and false negative results are possible. Confirmatory testing required for definitive results. Current Interpretive Data was last reviewed 2023. Cannabinoids, ur Not Detected CutOff 50 ng/mL [facility] Comment: Interpretive Data - Cannabinoids: ??Samples containing greater than 50 ng/mL delta-9 THC -COOH or other cross-reacting compounds are reported as positive. ??False positive and false negative results are possible. ??Confirmatory testing required for definitive results. Current Interpretive Data was last reviewed 2023. Cocaine, ur Not Detected CutOff 150ng/mL [facility] Comment: Interpretive Data - Cocaine: ??Samples containing greater than 150 ng/mL benzoylecgonine or other cross-reacting compounds are reported as positive. False positive and false negative results are possible. Confirmatory testing required for definitive results. Current Interpretive Data was last reviewed 2023. Fentanyl, Ur Not Detected CutOff 5 ng/mL [facility] Comment: Interpretive Data - Fentanyl: ?? Samples containing greater than 5 ng/mL norfentanyl, fentanyl, or other cross-reacting fentanyl compounds are reported as positive. False positive and false negative results are possible. Confirmatory testing required for definitive results. Current Interpretive Data was last reviewed 2023. Methadone, ur Not Detected CutOff 300ng/mL [facility] Comment: Interpretive Data - Methadone: ??Samples containing greater than 300 ng/mL d,l-methadone or other cross-reacting compounds are reported as positive. ??False positive and false negative results are possible. Confirmatory testing required for definitive results. Current Interpretive Data was last reviewed 2023. Opiates, ur Not Detected CutOff 300ng/mL [facility] Comment: Interpretive Data - Opiates: ??Samples containing greater than 300 ng/mL morphine or other cross-reacting compounds are reported as positive. ??False positive and false negative results are possible. Confirmatory testing required for definitive results. Current Interpretive Data was last reviewed 2023. Oxycodone, ur Screen Positive, presumptive (A) CutOff 100ng/mL [facility] Comment: Interpretive Data - Oxycodone: ??Samples containing greater than 100 ng/mL oxycodone or other cross-reacting compounds are reported as ??positive. ??False positive and false negative results are possible. Confirmatory testing required for definitive results. Current Interpretive Data was last reviewed 2023. Phencyclidine, ur Not Detected CutOff 25 ng/mL [facility] Comment: Interpretive Data - Phencyclidine: ??Samples containing greater than 25 ng/mL phencyclidine or other cross-reacting compounds are reported as positive. ??False positive and false negative results are possible. Confirmatory testing required for definitive results. Current Interpretive Data was last reviewed 2023. Urine Creatinine 87 mg/dL [facility] Comment: Interpretive Data Urine Creatinine: < 10 mg/dL is extremely dilute = or > 10 but < 20 mg/dL is dilute = or > 20 mg/dL is normal Current Interpretive Data was last revised on 2017. Urine 09/23/2024 6:26 PM VEGETABLE GROWER 09/23/2024 6:33 PM VEGETABLE GROWER Narrative [facility] - 09/23/2024 7:11 PM VEGETABLE GROWER Drug of Abuse screening is performed by immunoassay for medical purposes only. ??This is not to be used for Pain Management purposes. Jovany Stubbs MD LAB URINE ORDERABLES Final Result [facility] [address] Department [place] [address] * eGFR (09/23/2024 6:17 AM VEGETABLE GROWER) eGFR >90 >=60 mL/min/1. 73 m2 Comment: [...] last reviewed 2021. Blood 09/23/2024 6:17 AM VEGETABLE GROWER 09/23/2024 6:34 AM VEGETABLE GROWER us Mitchell Grajeda MD LAB BLOOD ORDERABLES Final R esult Performing Organization Address [facility]/ZIP Co de Phone Number [facility] [address] [employer] [place], [place] [id number] * (ABNORMAL) CBC without differential (09/23/2024 6:17 AM VEGETABLE GROWER) [facility] WBC 8.7 3.8 - 9.9 K/cumm Hgb 12.7(L) 13.0 - 17.5 g/dL [facility] Hct 39.6 38.9 - 50.3 % [facility] Plt 244 150 - 400 K/cumm [facility] MPV 10.9 9.1 - 12.3 fL [facility] RBC 4.30 4.30 - 5.80 M/cumm [facility] MCV 92.1 81.3 - 96.4 fL [facility] MCH 29.5 27.1 - 33.3 pg [facility] MCHC 32.1(L) 32.3 - 35.7 g/dL [facility] RDW CV 13.0 11.1 - 14.9 % [facility] RDW SD 43.8 35.7 - 48.1 fL [facility] NRBC abs 0.00 0.00 - 0.01 K/cumm [facility] Blood 09/23/2024 6:17 AM VEGETABLE GROWER 09/23/2024 6:34 AM VEGETABLE GROWER us Kevin Brody MD LAB BLOOD ORDERABLES Suzie l Result Performing Organization Address City/[facility]/ZIP Co de Phone Number [facility] [address] [place] [address] * (ABNORMAL) Renal function panel (09/23/2024 6:17 AM VEGETABLE GROWER) [facility] Sodium 141 135 - 145 mmol/L Potassium, pl 4.1 3.3 - 4.9 mmol/L [facility] Chloride 100 97 - 110 mmol/L [facility] CO2 30 22 - 32 mmol/L [facility] Anion gap 11 2 - 15 mmol/L [facility] BUN 10 6 - 25 mg/dL [facility] Creatinine 0.72(L) 0.80 - 1.30 mg/dL [facility] Glucose 95 70 - 199 mg/dL [facility] Comment: Interpretive Data Fasting glucose >/= [...] 2022. Calcium 8.7 8.5 - 10.3 mg/dL [facility] Phosphorus, pl 3.9 2.3 - 4.5 mg/dL [facility] Albumin 3.5 3.5 - 5.0 g/dL [facility] Blood 09/23/2024 6:17 AM VEGETABLE GROWER 09/23/2024 6:34 AM VEGETABLE GROWER us Mitchell Grajeda MD LAB BLOOD ORDERABLES Final R esult [facility] [address] [place] [address] * X-ray chest 1 view (Portable) (09/22/2024 12:05 PM VEGETABLE GROWER) Anatomical Region Laterality Modality Body, Chest N/A Computed Radiogr aphy 09/22/2024 12:4 0 PM VEGETABLE GROWER Impressions 09/22/2024 12:40 PM VEGETABLE GROWER Left upper extremity PICC tip in the mid SVC. Electronically signed by: Akil Cerda D.O. Narrative 09/22/2024 12:40 PM [employer]GETABLE GROWER EXAMINATION: XR CHEST 1 VIEW HISTORY: check [...] IMG XR PROCEDURES Fi nal Result * NC INSJ NON-TUNNELED CENTRAL VENOUS CATH AGE 5 YR/> (09/22/2024 11:15 AM VEGETABLE GROWER) Narrative Sue Steinberg PA - 09/22/2024 11:15 AM VEGETABLE GROWER Sue Steinberg PA ? 09/22/2024 11:46 AM PICC Line Insertion Date/Time: 09/22/2024 11:15 AM Performed by: Sue Steinberg PA Authorized by: Sue Steinberg PA ?? [place] Protocol: RN Notified of Procedure: yes ?? Informed consent: ??Risks, benefits, alternatives discussed and patient/sales solutions representative/guardian agrees and accepts Patient's stated name/ [...] Final Result * eGFR (09/22/2024 8:12 AM VEGETABLE GROWER) eGFR >90 >=60 mL/min/1. 73 m2 Comment: [...] last reviewed 2021. Blood 09/22/2024 8:12 AM VEGETABLE GROWER 09/22/2024 8:51 AM VEGETABLE GROWER us Mitchell Grajeda MD LAB BLOOD ORDERABLES Final R esult [facility] [address] [place] [address] * CBC without differential (09/22/2024 8:12 AM VEGETABLE GROWER) WBC 8.5 3.8 - 9.9 K/cumm Hgb 13.6 13.0 - 17.5 g/dL [facility] Hct 41.9 38.9 - 50.3 % [facility] Plt 241 150 - 400 K/cumm [facility] MPV 11.4 9.1 - 12.3 fL [facility] RBC 4.59 4.30 - 5.80 M/cumm [facility] MCV 91.3 81.3 - 96.4 fL [facility] MCH 29.6 27.1 - 33.3 pg [facility] MCHC 32.5 32.3 - 35.7 g/dL [facility] RDW CV 13.0 11.1 - 14.9 % [facility] RDW SD 43.8 35.7 - 48.1 fL [facility] NRBC abs 0.00 0.00 - 0.01 K/cumm [facility] Blood 09/22/2024 8:12 AM VEGETABLE GROWER 09/22/2024 8:52 AM VEGETABLE GROWER us Kevin Brody MD LAB BLOOD ORDERABLES Suzie l Result Performing Organization Address City/[facility]/ZIP Co de Phone Number [facility] [address] [place] [address] * (ABNORMAL) Renal function panel (09/22/2024 8:12 AM VEGETABLE GROWER) [facility] Sodium 143 135 - 145 mmol/L Potassium, pl 3.7 3.3 - 4.9 mmol/L [facility] Chloride 100 97 - 110 mmol/L [facility] CO2 31 22 - 32 mmol/L [facility] Anion gap 12 2 - 15 mmol/L [facility] BUN 9 6 - 25 mg/dL [facility] Creatinine 0.77(L) 0.80 - 1.30 mg/dL [facility] Glucose 144 70 - 199 mg/dL [facility] Comment: Interpretive Data Fasting glucose >/= [...] 2022. Calcium 9.3 8.5 - 10.3 mg/dL [facility] Phosphorus, pl 4.6(H) 2.3 - 4.5 mg/dL [facility] Albumin 4.1 3.5 - 5.0 g/dL [facility] Blood 09/22/2024 8:12 AM VEGETABLE GROWER 09/22/2024 8:51 AM VEGETABLE GROWER us Mitchell Grajeda MD LAB BLOOD ORDERABLES Final R esult Performing Organization Address [facility]/ZIP Co de Phone Number [facility] [address] [place] [place] [address] * eGFR (09/21/2024 6:09 AM VEGETABLE GROWER) [facility] eGFR >90 >=60 mL/min/1. 73 m2 Comment: [...] last reviewed 2021. Blood 09/21/2024 6:09 AM VEGETABLE GROWER 09/21/2024 7:01 AM VEGETABLE GROWER Mitchell Grajeda MD LAB BLOOD ORDERABLES Final R esult [facility] [address] [place] [address] * (ABNORMAL) CBC without differential (09/21/2024 6:09 AM VEGETABLE GROWER) [facility] WBC 8.8 3.8 - 9.9 K/cumm Hgb 11.7(L) 13.0 - 17.5 g/dL [facility] Hct 36.0(L) 38.9 - 50.3 % [facility] Plt 162 150 - 400 K/cumm [facility] MPV 12.0 9.1 - 12.3 fL [facility] RBC 3.93(L) 4.30 - 5.80 M/cumm [facility] MCV 91.6 81.3 - 96.4 fL [facility] MCH 29.8 27.1 - 33.3 pg [facility] MCHC 32.5 32.3 - 35.7 g/dL [facility] RDW CV 13.0 11.1 - 14.9 % [facility] RDW SD 44.1 35.7 - 48.1 fL [facility] NRBC abs 0.00 0.00 - 0.01 K/cumm [facility] Blood 09/21/2024 6:09 AM VEGETABLE GROWER 09/21/2024 7:01 AM VEGETABLE GROWER us Kevin Brody MD LAB BLOOD ORDERABLES Suzie l Result [facility] [address] [place] [address] * (ABNORMAL) Renal function panel (09/21/2024 6:09 AM VEGETABLE GROWER) Sodium 143 135 - 145 mmol/L Potassium, pl 3.5 3.3 - 4.9 mmol/L [facility] Chloride 105 97 - 110 mmol/L [facility] CO2 26 22 - 32 mmol/L [facility] Anion gap 12 2 - 15 mmol/L [facility] BUN 10 6 - 25 mg/dL [facility] Creatinine 0.70(L) 0.80 - 1.30 mg/dL [facility] Glucose 102 70 - 199 mg/dL [facility] Comment: Interpretive Data Fasting glucose >/= [...] 2022. Calcium 8.6 8.5 - 10.3 mg/dL [facility] Phosphorus, pl 3.6 2.3 - 4.5 mg/dL [facility] Albumin 3.3(L) 3.5 - 5.0 g/dL [facility] Blood 09/21/2024 6:09 AM VEGETABLE GROWER 09/21/2024 7:01 AM VEGETABLE GROWER us Mitchell Grajeda MD LAB BLOOD ORDERABLES Final R esult [facility] [address] [place] [address] * (ABNORMAL) Vancomycin level trough Please draw trough at this specific time. (09/20/2024 5:36 PM VEGETABLE GROWER) Pathologist [facility] Vancomycin trough 7.4(L) 10.0 - 20.0 mcg/mL Blood 09/20/2024 5:36 PM VEGETABLE GROWER 09/20/2024 5:40 PM VEGETABLE GROWER Narrative [facility] - 09/20/2024 6:00 PM VEGETABLE GROWER Please draw trough at this specific time. us Mitchell Grajeda MD LAB BLOOD ORDERABLES Final R esult [facility] [address] Department [employer] [place], [place] [id number] * (ABNORMAL) CBC without differential (09/20/2024 5:58 AM VEGETABLE GROWER) WBC 17.4(H) 3.8 - 9.9 K/cumm Hgb 12.8(L) 13.0 - 17.5 g/dL [facility] Hct 40.4 38.9 - 50.3 % [facility] Plt 174 150 - 400 K/cumm [facility] MPV 12.4(H) 9.1 - 12.3 fL [facility] RBC 4.37 4.30 - 5.80 M/cumm [facility] MCV 92.4 81.3 - 96.4 fL [facility] MCH 29.3 27.1 - 33.3 pg [facility] MCHC 31.7(L) 32.3 - 35.7 g/dL [facility] RDW CV 12.9 11.1 - 14.9 % [facility] RDW SD 44.1 35.7 - 48.1 fL [facility] NRBC abs 0.00 0.00 - 0.01 K/cumm [facility] Blood 09/20/2024 5:58 AM VEGETABLE GROWER 09/20/2024 6:35 AM VEGETABLE GROWER Kevin Brody MD LAB BLOOD ORDERABLES Suzie l Result [facility] [address] [place] [address] * (ABNORMAL) Tissue aerobic and anaerobic culture and gram stain Tissue Back, lower (09/19/2024 11:08AM VEGETABLE GROWER) Direct Specimen Exam Stain: No polymorphonuclear leukocytes seen. No organisms seen. Report Final Report: Very light growth Staphylococcus aureus, methicillin susceptible (.) [facility] Organism STAPHYLOCOCCUS AUREUS, METHICILLIN SUSCEPTIBLE [facility] Tissue (Back, lower) 09/19/2024 11:08 AM VEGETABLE GROWER 09/19/2024 12:11 PM VEGETABLE GROWER Narrative [facility] - 09/22/2024 9:51 AM VEGETABLE GROWER Deep Tissue Organism Antibiotic Method Susceptibility Staphylococcus [...] MICROBIOLOGY - GENERA L ORDERABLES Final Result [facility] [address] [facility] [place] [employer] [place] [address] * Mycology (fungal) culture Tissue Back, lower (09/19/2024 11:08 AM VEGETABLE GROWER) Report Final Report: No fungus isolated Tissue (Back, lower) 09/19/2024 11:08 AM VEGETABLE GROWER 09/19/2024 12:11 PM VEGETABLE GROWER Narrative [facility] - 10/17/2024 1:00 PM VEGETABLE GROWER Deep Tissue Mycology cultures are held for 4 weeks. us Kevin Brody MD LAB MICROBIOLOGY - GENERA L ORDERABLES Final Result Performing Organization Address [facility] Co de Phone Number [facility] [address] [place] [address] * Mycology (fungal) culture Abscess Back, lower (09/19/2024 11:07 AM VEGETABLE GROWER) Report Final Report: No fungus isolated Abscess (Back, lower) 09/19/2024 11:07 AM VEGETABLE GROWER 09/19/2024 12:25 PM VEGETABLE GROWER Narrative [facility] 10/17/2024 1:00 PM VEGETABLE GROWER Deep Mycology cultures are held for 4 weeks. us Kevin Brody MD LAB MICROBIOLOGY - GENERA L ORDERABLES Final Result Performing Organization Address [facility] Co de Phone Number [facility] [address] [facility] [place] [place] [address] * Mycology (fungal) culture Abscess Back, lower (09/19/2024 11:07 AM VEGETABLE GROWER) Report Final Report: No fungus isolated Abscess (Back, lower) 09/19/2024 11:07 AM VEGETABLE GROWER 09/19/2024 12:25 PM VEGETABLE GROWER Narrative [facility] - 10/17/2024 1:00 PM VEGETABLE GROWER Superficial Mycology cultures are held for 4 weeks. Kevin Brody MD LAB MICROBIOLOGY - GENERA L ORDERABLES Final Result Performing Organization Address [facility]/ZIP Co de Phone Number [facility] [address] [place] [address] * (ABNORMAL) Aerobic and anaerobic culture and gram stain Abscess Back, lower (09/19/2024 11:07 AM VEGETABLE GROWER) Direct Specimen Exam Stain: No polymorphonuclear leukocytes seen. No organisms seen. Report Final Report: Light growth of: Staphylococcus aureus, methicillin susceptible Susceptibility reported on this organism on previous culture [id number] (.) [facility] Organism STAPHYLOCOCCUS AUREUS, METHICILLIN SUSCEPTIBLE [facility] Abscess (Back, lower) 09/19/2024 11:07 AM VEGETABLE GROWER 09/19/2024 12:25 PM VEGETABLE GROWER Narrative [facility] - 09/23/2024 8:55 AM VEGETABLE GROWER Deep Kevin Brody MD LAB MICROBIOLOGY - GENERA L ORDERABLES Final Result Performing Organization Address [facility] Co de Phone Number [facility] [address] [place] [address] * (ABNORMAL) Aerobic and anaerobic culture and gram stain Abscess Back, lower (09/19/2024 11:07 AM VEGETABLE GROWER) Direct Specimen Exam Stain: Few polymorphonuclear leukocytes seen. Rare Gram Positive Cocci Report Final Report: Moderate growth of: Staphylococcus aureus, methicillin susceptible (.) [facility] Organism STAPHYLOCOCCUS AUREUS, METHICILLIN SUSCEPTIBLE [facility] Abscess (Back, lower) 09/19/2024 11:07 AM VEGETABLE GROWER 09/19/2024 12:25 PM VEGETABLE GROWER Narrative [facility] - 09/23/2024 8:49 AM VEGETABLE GROWER Superficial Organism Antibiotic Method Susceptibility Staphylococcus aureus, [...] MICROBIOLOGY - GENERA L ORDERABLES Final Result [facility] [address] Department [place] [address] * NC AN ELECTIVE ENDOTRACHEAL AIRWAY, NC AN PROCEDURE PLACEHOLDER (09/19/2024 10:49 AM VEGETABLE GROWER) Narrative Sonia David CRNA - 09/19/2024 10:49 AM VEGETABLE GROWER Sonia David CRNA ? 09/19/2024 10:50 AM Airway Patient location: OR Urgency: elective Indications for airway management: anesthesia Difficult airway: no Staff: Placed by: CLOTHING PRESSER: Sonia David CRNA Emergent airway documentation: Risks [...] * (ABNORMAL) Differential, auto (09/19/2024 1:19 AM VEGETABLE GROWER) Neutrophil abs 13.1(H) 1.5 - 6.5 K/cumm Imm gran abs 0.1 0.0 - 0.1 K/cumm [facility] Lymphocyte abs 1.3 0.8 - 3.3 K/cumm [facility] Monocyte abs 1.3(H) 0.2 - 0.8 K/cumm [facility] Eosinophil abs 0.0 0.0 - 0.5 K/cumm [facility] Basophil abs 0.0 0.0 - 0.1 K/cumm [facility] Neutrophil pct 83.0 % [facility] Comment: Interpretive Data Percent cell count reference ranges are not reported, since discordance with absolute values may lead to misinterpretation of CBC data. Current Interpretive Data was last revised on 2018. Imm gran pct 0.5 % [facility] Comment: Interpretive Data Percent cell count reference ranges are not reported, since discordance with absolute values may lead to misinterpretation of CBC data. Current Interpretive Data was last revised on 2018. Lymphocyte pct 8.0 % [facility] Comment: Interpretive Data Percent cell count reference ranges are not reported, since discordance with absolute values may lead to misinterpretation of CBC data. Current Interpretive Data was last revised on 2018. Monocyte pct 8.3 % [facility] Comment: Interpretive Data Percent cell count reference ranges are not reported, since discordance with absolute values may lead to misinterpretation of CBC data. Current Interpretive Data was last revised on 2018. Eosinophil pct 0.1 % [facility] Comment: Interpretive Data Percent cell count reference ranges are not reported, since discordance with absolute values may lead to misinterpretation of CBC data. Current Interpretive Data was last revised on 2018. Basophil pct 0.1 % [facility] Comment: Interpretive Data Percent cell count reference ranges are not reported, since discordance with absolute values may lead to misinterpretation of CBC data. Current Interpretive Data was last revised on 2018. Blood 09/19/2024 1:19 AM VEGETABLE GROWER 09/19/2024 1:19 AM VEGETABLE GROWER us Kita Astudillo MD LAB BLOOD ORDERABLES Final Resu lt [facility] [address] [place] [address] * (ABNORMAL) CBC with auto differential (09/19/2024 1:19 AM VEGETABLE GROWER) [facility] WBC 15.8(H) 3.8 - 9.9 K/cumm Hgb 13.0 13.0 - 17.5 g/dL [facility] Hct 39.4 38.9 - 50.3 % [facility] Plt 150 150 - 400 K/cumm [facility] MPV 12.1 9.1 - 12.3 fL [facility] RBC 4.38 4.30 - 5.80 M/cumm [facility] MCV 90.0 81.3 - 96.4 fL [facility] MCH 29.7 27.1 - 33.3 pg [facility] MCHC 33.0 32.3 - 35.7 g/dL [facility] RDW CV 12.7 11.1 - 14.9 % [facility] RDW SD 42.4 35.7 - 48.1 fL [facility] NRBC abs 0.00 0.00 - 0.01 K/cumm [facility] Blood 09/19/2024 1:19 AM VEGETABLE GROWER 09/19/2024 1:19 AM VEGETABLE GROWER us Kita Astudillo MD LAB BLOOD ORDERABLES Final Resu lt [facility] [address] [place] [address] * eGFR (09/19/2024 12:55 AM VEGETABLE GROWER) [facility] eGFR >90 >=60 mL/min/1. 73 m2 Comment: [...] reviewed 2021. Blood 09/19/2024 12:5 5 AM VEGETABLE GROWER 09/19/2024 1:19 AM VEGETABLE GROWER Kita Astudillo MD LAB BLOOD ORDERABLES Final Resu lt [facility] [address] [place] [address] * Blood culture Blood (09/19/2024 12:55 AM VEGETABLE GROWER) Report Final Report: No growth Blood 09/19/2024 12:5 5 AM VEGETABLE GROWER 09/19/2024 2:14 AM VEGETABLE GROWER Narrative [facility] - 09/24/2024 7:01 AM VEGETABLE GROWER From a different site than #1. Collection->Peripheral [...] organism identification may be performed using the TripTouch Blood Culture Identification panel. This assay detects microbial DNA in a blood culture broth. This assay has been cleared by the [place] Food and Drug Administration and its performance characteristics have been verified by the [facility] Microbiology Laboratory. Interpretive data was last revised on October 27, 2022. Kita Astudillo MD LAB MICROBIOLOGY - GENERAL ORDE RABLES Final Result Performing Organization Address [facility] Co de Phone Number [facility] [address] [place] [address] * Blood culture Blood (09/19/2024 12:55 AM VEGETABLE GROWER) Report Final Report: No growth Blood 09/19/2024 12:5 5 AM VEGETABLE GROWER 09/19/2024 2:14 AM VEGETABLE GROWER Narrative [facility] - 09/24/2024 7:01 AM VEGETABLE GROWER Collection->Peripheral Interpretive Data 1. Blood cultures are incubated and monitored continuously for 5 days (120 hours). The first negative report is issued within 24 hours of receipt in the laboratory. 2. All positive cultures are resulted and called to physicians/care providers as soon as they are detected. 3. A rapid molecular test for organism identification may be performed using the TripTouch Blood Culture Identification panel. This assay detects microbial DNA in a blood culture broth. This assay has been cleared by the [place] Food and Drug Administration and its performance characteristics have been verified by the [facility] Microbiology Laboratory. Interpretive data was last revised on October 27, 2022. Kita Astudillo MD LAB MICROBIOLOGY - GENERAL ORDE RABLES Final Result Performing Organization Address [facility] Co de Phone Number [facility] [address] [place] [address] * (ABNORMAL) Comprehensive metabolic panel (09/19/2024 12:55 AM VEGETABLE GROWER) Sodium 136 135 - 145 mmol/L Potassium, pl 4.1 3.3 - 4.9 mmol/L [facility] Comment:Hemolyzed; potassium value may be falsely elevated by as much as 0.3 - 0.5 mmol/L. Suggest redraw and reanalysis Chloride 98 97 - 110 mmol/L [facility] CO2 26 22 - 32 mmol/L [facility] Anion gap 12 2 - 15 mmol/L [facility] BUN 8 6 - 25 mg/dL [facility] Creatinine 0.70(L) 0.80 - 1.30 mg/dL [facility] Glucose 139 70 - 199 mg/dL [facility] Comment: Interpretive Data Fasting glucose >/= [...] 2022. Calcium 9.1 8.5 - 10.3 mg/dL [facility] Bilirubin, total 0.9 0.1 - 1.2 mg/dL [facility] Protein, pl 6.7 6.5 - 8.5 g/dL [facility] Albumin 3.7 3.5 - 5.0 g/dL [facility] Alk phos 92 40 - 130 Units/L [facility] ALT 18 7 - 55 Units/L [facility] AST 22 10 - 50 Units/L [facility] Comment:Slightly Hemolyzed S pecimen Blood 09/19/2024 12:5 5 AM VEGETABLE GROWER 09/19/2024 1:19 AM VEGETABLE GROWER us Kita Astudillo MD LAB BLOOD ORDERABLES Final Resu lt [facility] [address] Department [place] [address] * (ABNORMAL) CBC without differential (08/14/2024 7:13 AM VEGETABLE GROWER) WBC 16.5(H) 3.8 - 9.9 K/cumm Hgb 14.5 13.0 - 17.5 g/dL [facility] Hct 43.7 38.9 - 50.3 % [facility] Plt 169 150 - 400 K/cumm [facility] MPV 12.0 9.1 - 12.3 fL [facility] RBC 4.87 4.30 - 5.80 M/cumm [facility] MCV 89.7 81.3 - 96.4 fL [facility] MCH 29.8 27.1 - 33.3 pg [facility] MCHC 33.2 32.3 - 35.7 g/dL [facility] RDW CV 13.3 11.1 - 14.9 % [facility] RDW SD 44.0 35.7 - 48.1 fL [facility] NRBC abs 0.00 0.00 - 0.01 K/cumm [facility] Blood 08/14/2024 7:13 AM VEGETABLE GROWER 08/14/2024 7:51 AM VEGETABLE GROWER us Kevin Brody MD LAB BLOOD ORDERABLES Suzie gutierrez Result [facility] [address] Department [place] [address] * Surgical pathology (08/13/2024 11:16 AM VEGETABLE GROWER) Disc, intervertebral 024 11:16 AM VEGETABLE GROWER 08/13/2024 1:53 PM VEGETABLE GROWER Narrative 08/14/2024 2:09 PM VEGETABLE GROWER [address] ??[address] Tele: ?? Batsheva Ji MD - Irrigation Flume Layer Note to Patients: This report may contain [...] REPORT Patient Name: ??TRAMAINE MARIN JR. Address: ??[address] [place] [address] ??[address] Gender: ??M : ??1970 (Age: 53) Service: ??Ortho Location: ??[id number], ?? Hospital #: ??[id number] Patient Type: ??MBC OP IN BED Accession #: ? [id number] Taken: ? 08/13/2024 Received ? 08/13/2024 Reported: [...] x 3.5 x 0.6 cm in aggregate Still Cleaner sections are submitted in cassette labeled A1. ?? [facility] MICROSCOPIC DESCRIPTION: Microscopic examination supports the above captioned diagnosis. This case was signed out at [facility], [address] [place] [address]. Clerical Data Follows A; [id number] REPORT IMAGES AND/OR SCANNED DOCUMENTS ONLY VIEWABLE IN PDF FORMAT The immunohistochemical test(s) cited in this report, if any, was developed and its performance characteristics determined by [facility] Pathology Department. ??It has not been cleared or approved by the [place]. Food and Drug Administration. ??The FDA has determined that such clearance or approval is not necessary. ??This test is used for clinical purposes. ??It should not be regarded as investigational or for research. ??[facility] Laboratory is certified under the Clinical [...] part or completely in the following laboratories: [facility], [facility], [place] [address] [facility], [address] [place] [id number]. Kevin Brody MD LAB PATHOLOGY ORDERABLES Final Result * FL Fluoroscopy < 1 Hour (08/13/2024 11:08 AM VEGETABLE GROWER) Narrative [facility] - 08/13/2024 11:09 AM VEGETABLE GROWER The images from this study are not interpreted by Radiology. ??Please refer to the physician's procedure / OR operative note. Kevin Brody MD IMG FLUOROSCOPY PROCEDURE S Final Result Performing Organization Address City/State/[facility] Co de Phone Number [facility] * XR Spine Lumbar 2 or 3 Views (08/13/2024 11:08 AM VEGETABLE GROWER) Anatomical Region Laterality Modality Spine N/A Computed Radiogr aphy 08/13/2024 11:3 5 AM VEGETABLE GROWER Impressions 08/13/2024 11:35 AM VEGETABLE GROWER FINDINGS/IMPRESSION: 6 intraoperative fluoroscopic images are submitted for review. Fusion L4-L5 vertebral bodies. Postoperative changes of L3-L5 posterior fusion and decompression with L3-L4 interbody fusion device placement. Hardware is grossly intact. Please refer to the dedicated operative report for complete evaluation of real-time findings. Electronically signed by: Justus Toledo M.D. Narrative 08/13/2024 11:35 AM VEGETABLE GROWER EXAM: XR SPINE LUMBAR 2 OR 3 [...] of real-time findings. Electronically signed by: Justus Toleod M.D. us Kevin Brody MD IMG XR PROCEDURES Final R esult * NC AN ELECTIVE ENDOTRACHEAL AIRWAY, NC AN PROCEDURE PLACEHOLDER (08/13/2024 7:59 AM VEGETABLE GROWER) Narrative Naomi Galvan CRNA - 08/13/2024 7:59 AM VEGETABLE GROWER Naomi Galvan CRNA ? 08/13/2024 ??8:01 AM Airway Patient location: OR Urgency: elective Indications for airway management: anesthesia Difficult airway: no Staff: Supervising provider: Jason Christianson MD Placed by: CLOTHING PRESSER: Naomi Galvan CRNA Emergent airway documentation: Risks [...] with: silk tape Number of attempts: 1 Jason Christianson MD ANESTHESIA ORDERABLES Final Result * Check Sample (08/13/2024 6:59 AM VEGETABLE GROWER) ABO Rh O Positive MBC HCLL OTHER 08/13/2024 6:59 AM VEGETABLE GROWER 08/13/2024 7:23 AM VEGETABLE GROWER Ara Robbins NP LAB BLOOD ORDERABLES Fi nal Result [facility] [address] [place] [address] MBC * POCT lipid panel (07/30/2024 10:33 AM VEGETABLE GROWER) Cholesterol, POC 186 mg/dL HDL, POC 28 mg/dL Triglycerides, POC 215 mg/dL LDL Cholesterol POC 115 mg/dL Chol/HDL Ratio, POC 6.7 Non-HDL Cholesterol, POC 158 mg/dL Cholesterol Total, POC 186 mg/dL Capillary blood 07/30/2024 1 0:33 AM VEGETABLE GROWER Hunter Smith MD POINT OF CARE TEST ORDERABLES Fi nal Result * ECG 12 lead (07/30/2024 10:22 AM VEGETABLE GROWER) Hunter Smith MD ECG ORDERABLES Edited Result - Final * Differential, auto (07/23/2024 10:10 AM CDT) Neutrophil abs 5.6 1.5 - 6.5 K/cumm Imm gran abs 0.0 0.0 - 0.1 K/cumm [facility] Lymphocyte abs 2.1 0.8 - 3.3 K/cumm [facility] Monocyte abs 0.7 0.2 - 0.8 K/cumm [facility] Eosinophil abs 0.2 0.0 - 0.5 K/cumm [facility] Basophil abs 0.0 0.0 - 0.1 K/cumm [facility] Neutrophil pct 64.7 % [facility] Comment: Interpretive Data Percent cell count reference ranges are not reported, since discordance with absolute values may lead to misinterpretation of CBC data. Current Interpretive Data was last revised on 2018. Imm gran pct 0.2 % [facility] Comment: Interpretive Data Percent cell count reference ranges are not reported, since discordance with absolute values may lead to misinterpretation of CBC data. Current Interpretive Data was last revised on 2018. Lymphocyte pct 24.8 % [facility] Comment: Interpretive Data Percent cell count reference ranges are not reported, since discordance with absolute values may lead to misinterpretation of CBC data. Current Interpretive Data was last revised on 2018. Monocyte pct 8.1 % [facility] Comment: Interpretive Data Percent cell count reference ranges are not reported, since discordance with absolute values may lead to misinterpretation of CBC data. Current Interpretive Data was last revised on 2018. Eosinophil pct 1.7 % [facility] Comment: Interpretive Data Percent cell count reference ranges are not reported, since discordance with absolute values may lead to misinterpretation of CBC data. Current Interpretive Data was last revised on 2018. Basophil pct 0.5 % [facility] Comment: Interpretive Data Percent cell count reference ranges are not reported, since discordance with absolute values may lead to misinterpretation of CBC data. Current Interpretive Data was last revised on 2018. Blood 07/23/2024 10:1 0 AM CDT 07/23/2024 10:10 AM CDT us Ara Robbins NP LAB BLOOD ORDERABLES Fi nal Result [facility] [address] [place] [address] * CBC with auto differential (07/23/2024 10:10 AM CDT) WBC 8.6 3.8 - 9.9 K/cumm Hgb 15.7 13.0 - 17.5 g/dL [facility] Hct 47.5 38.9 - 50.3 % [facility] Plt 184 150 - 400 K/cumm [facility] MPV 11.6 9.1 - 12.3 fL [facility] RBC 5.27 4.30 - 5.80 M/cumm [facility] MCV 90.1 81.3 - 96.4 fL [facility] MCH 29.8 27.1 - 33.3 pg [facility] MCHC 33.1 32.3 - 35.7 g/dL [facility] RDW CV 12.9 11.1 - 14.9 % [facility] RDW SD 42.5 35.7 - 48.1 fL [facility] NRBC abs 0.00 0.00 - 0.01 K/cumm [facility] Blood 07/23/2024 10:1 0 AM CDT 07/23/2024 10:10 AM CDT Ara Robbins NP LAB BLOOD ORDERABLES Fi nal Result Performing Organization Address City/[facility] Co de Phone Number [facility] [address] [place] [place] [address] * Vitamin D 25 hydroxy (07/23/2024 10:10 AM CDT) [facility] Vitamin D 25-OH 38 30 - 80 ng/mL Blood 07/23/2024 10:1 0 AM CDT 07/23/2024 10:10 AM CDT Ara Robbins NP LAB BLOOD ORDERABLES Fi nal Result Performing Organization Address [facility] Co de Phone Number [facility] [address] [place] [place] [address] * (ABNORMAL) Hemoglobin A1c (07/23/2024 10:10 AM CDT) [facility] Hgb A1C 5.7(H) 4.0 - 5.6 % Estimated Average Glucose 117 mg/dL [facility] Comment: The ADA recommends reporting an estimated Average Glucose (eAG) with all Hemoglobin A1c results using the equation derived from a study of 507 normal and diabetic adults. ??Minority populations were underrepresented and children were not included. ?? (Diabetes Care 31:0978-2198, 2008). ??The eAG is not equivalent to a fasting glucose. Blood 07/23/2024 10:1 0 AM CDT 07/23/2024 10:10 AM CDT Ara Robbins NP LAB BLOOD ORDERABLES Fi nal Result Performing Organization Address [facility]/ZIP Co de Phone Number [facility] [address] Department of Laboratories [place], [place] [id number] * Type and screen (07/23/2024 9:54 AM CDT) Napoleon, indirect Negative ABO Rh O Positive [facility] Blood 07/23/2024 9:54 AM CDT 07/23/2024 10:24 AM CDT Narrative [facility] - 07/23/2024 11:28 AM CDT Is this test being ordered in advance for a procedure?->Yes Expected date of procedure:->08/13/24 Has the patient been transfused in the past 3 months?->No Ara Robbins NP LAB BLOOD BANK TEST ORD ERABLES Final Result Performing Organization Address [facility] Co de Phone Number [facility] [address] [place] [place] [address] from Last 3 Months Insurance * Guarantor: Tramaine Marin Jr. Account Type Relation to Patient Date of Phone Billing Address Personal/Family Self [address] [place] [id number] [place] [address] [place] Advance Directives For more information, please contact: [phone] * Full Code (Latest Code Status on File) Date Activated Date Inactivated Comments 09/19/2024 12:47 PM 10/05/2024 3:11 PM * Full Code Date Activated Date Inactivated Comments 09/18/2024 8:09 PM 09/19/2024 12:47 PM * Full Code Date Activated Date Inactivated Comments 08/13/2024 2:58 PM 08/14/2024 4:58 PM Care Teams Lifeguard Relationship Specialty Start Date End Date Elton De La Fuente MD PCP - General Family Medicine 06/02/21
--- OUTSIDE RECORDS SUMMARY | 2024-10-21 14:53 | XMS_ITS ---
Author Organization [facility] Address [address] [place] [phone] Care Team Providers Care Cooking Appliance Repair Technician Name Role Phone Mary Grace SOMMERS, Kevin Unavailable Unavailable Sue Davis Unavailable [phone] Medications Medication SIG (Take, Route, Frequency, Duration) Notes Start Date End Date Status HYDROcodone-Acetaminop hen 7.5-325 MG 1 tablet Orally every 6 hrs for 10 days Fill 08/05/24 08/05/2024 Active Encounters Encounter Location Date Provider Diagnosis [facility] [address] [place] [address] [address] [place] [address] 08/05/2024 Sue Davis Plan Of Treatment Medication Medication Name Sig Start Date Stop Date Notes HYDROcodone-Acetaminophen 7.5-325 MG 1 tablet Orally every 6 hrs for 10 days 08/05/2024 Fill 08/05/24 Progress Notes * Tramaine MARIN LDOB:1970 (53 yo M)Acc No.[id number]:08/05/2024 Patient:?MICHELE Tramaine Guzman :1970???Age:53 Y???Sex:Male Phone: Address:[address] [place] [address], [phone] * Refills? Refill HYDROcodone-Acetaminophen Tablet, 7.5-325 MG, Orally, 40 Tablet, 1 tablet, every 6 hrs, 10 days, Refills=0 * true * Date:? Generated for Junior modi/Inna/eTransmitting on:?10/21/2024 02:53 PM CERTIFED REFRIGERATION OPERATOR
--- OUTSIDE RECORDS SUMMARY | 2024-10-21 14:53 | XMS_ITS ---
Author Organization [facility] Address [address] [place] [address] [address] [place] [address] Care Team Providers Care Home Companion Name Role Phone Kevin Brody MD Unavailable Unavailable Bailey Vo PA-C Unavailable [phone] REASON FOR VISIT meds Encounters Encounter Location Date Provider Diagnosis [facility] [address] [facility] [address] [place] [address] 09/02/2024 Bailey Vo Plan Of Treatment No Information Progress Notes * Tramaine MARIN LDOB:1970 (53 yo M)Acc No.[id number]:09/02/2024 Progress Notes Patient:?Tramaine MARIN Appointment Provider:?CLAUDIA [place] :1970???Age:53 Y???Sex:Male Andrew e:09/02/2024 Phone: Address:[address] [place], [place] [phone] Subjective: * Chief Complaints: * ???1. Meds. * Medical History:? Objective: * Vitals:? Assessment: Plan: * Treatment: * Billing Information: * Visit Code:? * Procedure Codes:? * Electronic signature of CLAUDIA Banks PA-C on 10/21/2024 at 02:53 PM CUSTOMER ENGAGEMENT MANAGER Sign off status: Pending * Appointment Provider:?CLAUDIA Valentino Date:?09/02/2024 Generated for Printing/Faxing/eTransmitting on:?10/21/2024 02:53 PM CUSTOMER ENGAGEMENT MANAGER
--- OUTSIDE RECORDS SUMMARY | 2024-10-21 14:54 | XMS_ITS | Referral Summary ---
Author Organization [facility] Address [address] [place] [address] Care Team Providers Care Pharmacy Technician Instructor Name Role Phone Elton De La Fuente MD Primary Care Provider Encounters Date Type Department Care Team Description 10/17/2024 8:34 AM CORK TIPPER - 10/17/2024 11:59 PM CORK TIPPER Hospital Encounter [facility] - Interventional Radiology [address] [place] [phone] Infection following a procedure, other surgical site, subsequent encounter Discharge Disposition: Discharge to home or self care 09/18/2024 7:53 PM CORK TIPPER - 10/05/2024 11:00 AM CORK TIPPER Hospital Encounter [facility] [address] [place] [phone] Kita Astudillo MD Willis, Devin Ray, MD Sufi, MD Yessica Vigil Fatima A., MD Alkaade, Saad, MD Hammes, Amanda Jane, MD Teckchandani, Renu, MD Wound infection (Primary Dx); Cellulitis of other specified site; Cellulitis, unspecified cellulitis site [L03.90]; Lumbar stenosis with neurogenic claudication [M48.062] Discharge Disposition: Discharge to home or self care 09/19/2024 10:31 AM CORK TIPPER Anesthesia Event [facility] Operating Room [address] [place] [phone] Stephenie Rodriguez DO Tynes, Jessika Olegovna, CRNA 09/19/2024 10:03 AM CORK TIPPER - 09/19/2024 12:08 PM CORK TIPPER Surgery [facility] Operating Room [address] [place] [phone] Kevin Brody MD INCISION AND DRAINAGE - LUMBAR 09/18/2024 Orders Only [address] [phone] Kita Astudillo MD 09/17/2024 Patient Self-Triage [facility] [address] [place] [phone] Mychart, Generic Provider 08/13/2024 5:41 AM CORK TIPPER - 08/14/2024 12:58 PM CORK TIPPER Hospital Encounter [address] [phone] Kevin Brody MD Pseudoclaudication syndrome Discharge Disposition: Discharge to home or self care 08/13/2024 Orders Only [facility] Operating Room [address] [place] [phone] Kevin Brody MD 08/13/2024 7:30 AM CORK TIPPER - 08/13/2024 12:30 PM CORK TIPPER Surgery [facility] Operating Room [address] [place] [phone] Kevin Brody MD L3-5 Decompressive Laminectomy, Posterior Lumbar Interbody Fusion using Zavation EZ Span Cage, Mathew Screws, Local Autograph and L4-5 Repeat Discectomy 08/13/2024 7:26 AM CORK TIPPER Anesthesia Event [facility] Operating Room [address] [place] [phone] Jason Christianson MD Salameh, Besan Mohammed, PA 07/30/2024 10:15 AM CORK TIPPER Office Visit [facility] [address] [place] [address] [place] [phone] Hunter Smith MD Preop cardiovascular exam (Primary Dx); Tobacco abuse; Lipid screening 07/23/2024 Telephone [facility] Anesthesia [address] [place] [phone] Ara Robbins NP 07/23/2024 8:45 AM CDT Pre-Admission Testing [facility] Pre Anesthesia Testing [address] [place] [phone] Preoperative testing (Primary Dx) from Last 3 Months Allergies Active Allergy Reactions Criticality Noted Date Comments Pseudoephedrine Other (See comments) Low 06/02/2021 shakey Medications methocarbamoL (ROBAXIN) 750 mg tablet Take [...] by mouth 2 (two) times a day 02/07/20 25 Active pregabalin (LYRICA) 75 mg capsule [...] 0.6 oz pur e alcohol) Recovering alcoholic-whiskey [facility] Utilities Answer Date Recorded In the past 12 months has [employer], gas, oil, or water [employer] threatened to shut off services in your [...] How often do you attend chur or mandaeism services? Never 09/19/2024 Do you belong to any clubs o r organizations such as congregation groups, unions, fraternal or athletic groups, or [...] any time in the past 12 m [facility], were you homeless or living in a intermediate (including now)? No 09/19/2024 Personal Safety Answer Date Recorded Have you ever been in or are you currently in a harmful physical or emotional relationship or is someone making you feel afraid or unsafe? 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 Not on file Not on file Last Filed Vital Signs Vital Sign Reading Time Taken Comments Blood Pressure 173/100 10/17/2024 9:20 AM CORK TIPPER Pulse 69 10/17/2024 9:20 AM CORK TIPPER Temperature 37.3 ??C (99.1 ??F) 10/17/2024 8:45 AM CS T Respiratory Rate 16 10/17/2024 9:20 AM CORK TIPPER Oxygen Saturation 95% 10/17/2024 9:20 AM CORK TIPPER Inhaled Oxygen Concentration - - Weight 87.1 kg (192 lb) 10/17/2024 8:45 AM CORK TIPPER Height 182.9 cm (6') 10/17/2024 8:45 AM CORK TIPPER Body Mass Index 26.04 10/17/2024 8:45 AM CORK TIPPER Plan of Treatment Not on file Medical Devices Implanted Type Area Medicinal Plant Picker Device Identifier Shelf Expiration Date Model / Serial / Lot Biocomposites Stimulan Rapid Cure Kit Paste Colliery Clerk 5cc 12.5cc Bone Void 620-005 - [id number] Implanted:Qty: 1 on 08/13/2024 by Kevin Brody MD at [facility] N/A: Spine Lumbar Biocom[employer]ites [id number] 04/24/2027 620-005 / / [id number] [employer] Cage Spinal Lumbar 10 Degree Tlif Expandable 7-11.5mm Titanium [id number] - [id number] Implanted:Qty: 2 on 08/13/2024 by Kevin Brody MD at [facility] N/A: Spine Lumbar [employer] [id number] / / Amina Spine 4.5mm 35mm Polyaxial Spine Screw Bone Deformity [id number] - [id number] Implanted:Qty: 6 on 08/13/2024 by Kevin Brody MD at [facility] N/A: Spine Lumbar Amina Spine [id number] / / Henderson Spine 4.5mm 75mm Contour Ulises Spinal Cocr [id number] - [id number] Implanted:Qty: 2 on 08/13/2024 by Kevin Brody MD at [facility] N/A: Spine Lumbar Henderson Spine [id number] 5 / / Henderson Spine 26mm Semiadjustable Transverse Spine Connector Ulises Posterior [id number] - [id number] Implanted:Qty: 1 on 08/13/2024 by Kevin Brody MD at [facility] N/A: Spine Lumbar Henderson Spine [id number] [id number] / / Amina Spine 32mm Semiadjustable Transverse Spine Connector Ulises Posterior [id number] - [id number] Implanted:Qty: 1 on 08/13/2024 by Kevin Brody MD at [facility] N/A: Spine Lumbar Henderson Spine [id number] 2A / / Procedures Procedure Name Priority Date/Time Associated Diagnosis Comments IR PICC LINE PLACEMENT > 5 YEARS Schedule Routine, Read Routine (OP Routine) 10/17/2024 9:26 AM CORK TIPPER Infection following a procedure, other surgical site, subsequent encounter EGFR Routine 09/28/2024 5:42 AM CORK TIPPER RENAL FUNCTION PANEL Routine 09/28/2024 5:42 AM CORK TIPPER EGFR Routine 09/27/2024 4:57 AM CORK TIPPER RENAL FUNCTION PANEL Routine 09/27/2024 4:57 AM CORK TIPPER EGFR Routine 09/26/2024 5:36 AM CORK TIPPER RENAL FUNCTION PANEL Routine 09/26/2024 5:36 AM CORK TIPPER EGFR Routine 09/25/2024 5:49 AM CORK TIPPER RENAL FUNCTION PANEL Routine 09/25/2024 5:49 AM CORK TIPPER EGFR Routine 09/24/2024 7:50 AM CORK TIPPER RENAL FUNCTION PANEL Routine 09/24/2024 7:50 AM CORK TIPPER CBC WITHOUT DIFFERENTIAL Routine 09/24/2024 7:50 AM CORK TIPPER DRUGS OF ABUSE SCREEN, URINE WITHOUT CONFIRMATION Routine 09/23/2024 6:26 PM CORK TIPPER EGFR Routine 09/23/2024 6:17 AM CORK TIPPER RENAL FUNCTION PANEL Routine 09/23/2024 6:17 AM CORK TIPPER CBC WITHOUT DIFFERENTIAL Routine 09/23/2024 6:17 AM CORK TIPPER XR CHEST 1 VIEW ED Urgent/IP Urgent 09/22/2024 12:05 PM CORK TIPPER FL INSJ NON-TUNNELED CENTRAL VENOUS CATH AGE 5 YR/> Routine 09/22/2024 11:15 AM CORK TIPPER Wound infection EGFR Routine 09/22/2024 8:12 AM CORK TIPPER RENAL FUNCTION PANEL Routine 09/22/2024 8:12 AM CORK TIPPER CBC WITHOUT DIFFERENTIAL Routine 09/22/2024 8:12 AM CORK TIPPER EGFR Routine 09/21/2024 6:09 AM CORK TIPPER RENAL FUNCTION PANEL Routine 09/21/2024 6:09 AM CORK TIPPER CBC WITHOUT DIFFERENTIAL Routine 09/21/2024 6:09 AM CORK TIPPER VANCOMYCIN LEVEL TROUGH Timed 09/20/2024 5:36 PM CORK TIPPER CBC WITHOUT DIFFERENTIAL Routine 09/20/2024 5:58 AM CORK TIPPER MYCOLOGY (FUNGAL) CULTURE Routine 09/19/2024 11:08 AM CORK TIPPER TISSUE AEROBIC AND ANAEROBIC CULTURE AND GRAM STAIN Routine 09/19/2024 11:08 AM CORK TIPPER MYCOLOGY (FUNGAL) CULTURE Routine 09/19/2024 11:07 AM CORK TIPPER AEROBIC AND ANAEROBIC CULTURE AND GRAM STAIN Routine 09/19/2024 11:07 AM CORK TIPPER MYCOLOGY (FUNGAL) CULTURE Routine 09/19/2024 11:07 AM CORK TIPPER AEROBIC AND ANAEROBIC CULTURE AND GRAM STAIN Routine 09/19/2024 11:07 AM CORK TIPPER FL AN PROCEDURE PLACEHOLDER Routine 09/19/2024 10:49 AM CORK TIPPER FL AN ELECTIVE ENDOTRACHEAL AIRWAY Routine 09/19/2024 10:49 AM CORK TIPPER INCISION AND DRAINAGE - BACK 09/19/2024 10:30 AM CORK TIPPER LUMBAR WOUND INFECTION DIFFERENTIAL AUTO Routine 09/19/2024 1:1 9 AM CORK TIPPER CBC WITH AUTO DIFFERENTIAL Routine 09/19/2024 1:19 AM CORK TIPPER EGFR Routine 09/19/2024 12:55 AM CORK TIPPER COMPREHENSIVE METABOLIC PANEL Routine 09/19/2024 12:55 AM CORK TIPPER BLOOD CULTURE Routine 09/19/2024 12:55 AM CORK TIPPER BLOOD CULTURE Routine 09/19/2024 12:55 AM CORK TIPPER CBC WITHOUT DIFFERENTIAL Routine 08/14/2024 7:13 AM CORK TIPPER SURGICAL PATHOLOGY Routine 08/13/2024 11:16 AM CORK TIPPER FL FLUOROSCOPY < 1 HOUR IP Routine 08/13/2024 11:08 AM CORK TIPPER XR SPINE LUMBAR 2 OR 3 VIEWS IP Routine 08/13/2024 11:08 AM CORK TIPPER FL AN PROCEDURE PLACEHOLDER Routine 08/13/2024 7:59 AM CORK TIPPER FL AN ELECTIVE ENDOTRACHEAL AIRWAY Routine 08/13/2024 7:59 AM CORK TIPPER FUSION LUMBAR - POSTERIOR 2 LEVELS 08/13/2024 7:30 AM CORK TIPPER Pseudoclaudication syndrome B CHECK SAMPLE STAT 08/13/2024 6:59 AM CORK TIPPER POCT LIPID PANEL Routine 07/30/2024 10:33 AM CORK TIPPER Lipid screening ECG 12-LEAD Routine 07/30/2024 10:22 AM CORK TIPPER Preop cardiovascular exam DIFFERENTIAL AUTO Routine 07/23/2024 [...] 5 Years of Age (10/17/2024 9:26 AM CORK TIPPER) Anatomical Region Laterality Modality Body N/A X-Ray Angiograph y 10/17/2024 10:2 5 AM CORK TIPPER Impressions 10/17/2024 10:25 AM CORK TIPPER Successful nontunneled catheter placement. PLAN: The catheter is ready for immediate use. ??When treatment is completed, this catheter can be removed at the bedside according to standard hospital protocol. ?? Electronically signed by: Patrica Garnica PA-C Narrative 10/17/2024 10:25 AM CORK TIPPER EXAMINATION: ??NONTUNNELED CENTRAL VENOUS CATHETER PLACEMENT (STD) [...] was obtained. ??Prior to beginning the procedure, [place] Protocol was used to confirm the patient's [...] seen. Procedure Note Patrica Garnica PA - 10/17/2024 EXAMINATION: NONTUNNELED CENTRAL VENOUS CATHETER PLACEMENT (STD) [...] was obtained. Prior to beginning the procedure, [place] Protocol was used to confirm the patient's [...] al Result * eGFR (09/28/2024 5:42 AM CORK TIPPER) eGFR >90 >=60 mL/min/1. 73 m2 Comment: [...] Inclusion of Race in Diagnosing Kidney Disease, ANTONIN 2020). The CKD-EPI equation should not be used for patients with unstable renal function and has not been validated in children and those over 70. Current interpretive data was last reviewed 2021. Blood 09/28/2024 5:42 AM CORK TIPPER 09/28/2024 5:54 AM CORK TIPPER us Mitchell Grajeda MD LAB BLOOD ORDERABLES Final R esult [facility] [address] Department [place] [address] * (ABNORMAL) Renal function panel (09/28/2024 5:42 AM CORK TIPPER) Sodium 139 135 - 145 mmol/L Potassium, pl 4.1 3.3 - 4.9 mmol/L [facility] Chloride 99 97 - 110 mmol/L [facility] CO2 27 22 - 32 mmol/L [facility] Anion gap 13 2 - 15 mmol/L [facility] BUN 15 6 - 25 mg/dL [facility] Creatinine 0.78(L) 0.80 - 1.30 mg/dL [facility] Glucose 108 70 - 199 mg/dL [facility] Comment: Interpretive Data Fasting glucose >/= [...] 2022. Calcium 9.1 8.5 - 10.3 mg/dL [facility] Phosphorus, pl 4.2 2.3 - 4.5 mg/dL [facility] Albumin 4.0 3.5 - 5.0 g/dL [facility] Blood 09/28/2024 5:42 AM CORK TIPPER 09/28/2024 5:54 AM CORK TIPPER us Mitchell Grajeda MD LAB BLOOD ORDERABLES Final R esult Performing Organization Address [facility] Co de Phone Number [facility] [address] [place] [address] * eGFR (09/27/2024 4:57 AM CORK TIPPER) eGFR >90 >=60 mL/min/1. 73 m2 Comment: [...] last reviewed 2021. Blood 09/27/2024 4:57 AM CORK TIPPER 09/27/2024 5:20 AM CORK TIPPER us Mitchell Grajeda MD LAB BLOOD ORDERABLES Final R esult Performing Organization Address [facility] Co de Phone Number [facility] [address] [place] [address] * (ABNORMAL) Renal function panel (09/27/2024 4:57 AM CORK TIPPER) Pathologist [facility] [place] Sodium 143 135 - 145 mmol/L Potassium, pl 4.1 3.3 - 4.9 mmol/L [facility] Chloride 103 97 - 110 mmol/L [facility] CO2 28 22 - 32 mmol/L [facility] Anion gap 12 2 - 15 mmol/L [facility] BUN 15 6 - 25 mg/dL [facility] Creatinine 0.77(L) 0.80 - 1.30 mg/dL [facility] Glucose 91 70 - 199 mg/dL [facility] Comment: Interpretive Data Fasting glucose >/= [...] 2022. Calcium 9.4 8.5 - 10.3 mg/dL [facility] Phosphorus, pl 4.4 2.3 - 4.5 mg/dL [facility] Albumin 3.9 3.5 - 5.0 g/dL [facility] Blood 09/27/2024 4:57 AM CORK TIPPER 09/27/2024 5:20 AM CORK TIPPER us Mitchell Grajeda MD LAB BLOOD ORDERABLES Final R esult [facility] [address] Department [place] [address] * eGFR (09/26/2024 5:36 AM CORK TIPPER) [facility] eGFR >90 >=60 mL/min/1. 73 [...] last reviewed 2021. Blood 09/26/2024 5:36 AM CORK TIPPER 09/26/2024 6:05 AM CORK TIPPER us Mitchell Grajeda MD LAB BLOOD ORDERABLES Final R esult [facility] [address] Department [place] [address] * (ABNORMAL) Renal function panel (09/26/2024 5:36 AM CORK TIPPER) Sodium 139 135 - 145 mmol/L Potassium, pl 4.0 3.3 - 4.9 mmol/L [facility] Chloride 99 97 - 110 mmol/L [facility] CO2 28 22 - 32 mmol/L [facility] Anion gap 12 2 - 15 mmol/L [facility] BUN 14 6 - 25 mg/dL [facility] Creatinine 0.73(L) 0.80 - 1.30 mg/dL [facility] Glucose 95 70 - 199 mg/dL [facility] Comment: Interpretive Data Fasting glucose >/= [...] 2022. Calcium 9.1 8.5 - 10.3 mg/dL [facility] Phosphorus, pl 4.3 2.3 - 4.5 mg/dL [facility] Albumin 4.0 3.5 - 5.0 g/dL [facility] Blood 09/26/2024 5:36 AM CORK TIPPER 09/26/2024 6:05 AM CORK TIPPER us Mitchell Grajeda MD LAB BLOOD ORDERABLES Final R esult [facility] [address] Department [place] [address] * eGFR (09/25/2024 5:49 AM CORK TIPPER) eGFR >90 >=60 mL/min/1. 73 m2 Comment: [...] last reviewed 2021. Blood 09/25/2024 5:49 AM CORK TIPPER 09/25/2024 6:01 AM CORK TIPPER us Mitchell Grajeda MD LAB BLOOD ORDERABLES Final R esult [facility] [address] Department [place] [address] * (ABNORMAL) Renal function panel (09/25/2024 5:49 AM CORK TIPPER) Sodium 142 135 - 145 mmol/L Potassium, pl 3.9 3.3 - 4.9 mmol/L [facility] Chloride 103 97 - 110 mmol/L [facility] CO2 29 22 - 32 mmol/L [facility] Anion gap 10 2 - 15 mmol/L [facility] BUN 10 6 - 25 mg/dL [facility] Creatinine 0.70(L) 0.80 - 1.30 mg/dL [facility] Glucose 88 70 - 199 mg/dL [facility] Comment: Interpretive Data Fasting glucose >/= [...] 2022. Calcium 8.8 8.5 - 10.3 mg/dL [facility] Phosphorus, pl 4.1 2.3 - 4.5 mg/dL [facility] Albumin 3.7 3.5 - 5.0 g/dL [facility] Blood 09/25/2024 5:49 AM CORK TIPPER 09/25/2024 6:01 AM CORK TIPPER us Mitchell Grajeda MD LAB BLOOD ORDERABLES Final R esult [facility] [address] Department [place] [address] * eGFR (09/24/2024 7:50 AM CORK TIPPER) eGFR >90 >=60 mL/min/1. 73 m2 Comment: [...] last reviewed 2021. Blood 09/24/2024 7:50 AM CORK TIPPER 09/24/2024 8:09 AM CORK TIPPER us Mitchell Grajeda MD LAB BLOOD ORDERABLES Final R esult Performing Organization Address [facility] Co de Phone Number [facility] [address] [place] [address] * (ABNORMAL) CBC without differential (09/24/2024 7:50 AM CORK TIPPER) [facility] WBC 11.4(H) 3.8 - 9.9 K/cumm Hgb 13.0 13.0 - 17.5 g/dL [facility] Hct 40.2 38.9 - 50.3 % [facility] Plt 280 150 - 400 K/cumm [facility] MPV 10.8 9.1 - 12.[address] [facility] RBC 4.40 4.30 - 5.80 M/cumm [facility] MCV 91.4 81.3 - 96.[address] [facility] MCH 29.5 27.1 - 33.[address] [facility] MCHC 32.3 32.3 - 35.7 g/dL [facility] RDW CV 13.0 11.1 - 14.9 % [facility] RDW SD 43.6 35.7 - 48.[address] [facility] NRBC abs 0.00 0.00 - 0.01 K/cumm [facility] Blood 09/24/2024 7:50 AM CORK TIPPER 09/24/2024 8:10 AM CORK TIPPER us Kevin Brody MD LAB BLOOD ORDERABLES Suzie l Result Performing Organization Address [facility]/ZIP Co de Phone Number [facility] [address] [place] [address] * (ABNORMAL) Renal function panel (09/24/2024 7:50 AM CORK TIPPER) [facility] Sodium 141 135 - 145 mmol/L Potassium, pl 4.0 3.3 - 4.9 mmol/L [facility] Chloride 101 97 - 110 mmol/L [facility] CO2 28 22 - 32 mmol/L [facility] Anion gap 12 2 - 15 mmol/L [facility] BUN 13 6 - 25 mg/dL [facility] Creatinine 0.75(L) 0.80 - 1.30 mg/dL [facility] Glucose 154 70 - 199 mg/dL [facility] Comment: Interpretive Data Fasting glucose >/= [...] 2022. Calcium 9.0 8.5 - 10.3 mg/dL [facility] Phosphorus, pl 3.7 2.3 - 4.5 mg/dL [facility] Albumin 3.9 3.5 - 5.0 g/dL [facility] Blood 09/24/2024 7:50 AM CORK TIPPER 09/24/2024 8:09 AM CORK TIPPER Mitchell Grajeda MD LAB BLOOD ORDERABLES Final R esult [facility] [address] Department [place] [address] * (ABNORMAL) Drugs of Abuse Screen, Urine without Confirmation (09/23/2024 6:26 PM CORK TIPPER) Amphetamine, ur Not Detected CutOff 500ng/mL Comment: Interpretive Data - Amphetamines: ??Samples containing greater than 500 ng/mL d-methamphetamine ??or other cross-reacting amphetamine compounds are reported as positive. ??Amphetamine immunoassays are subject to significant false positive rates due to cross-reactivity of non-amphetamine drugs. Confirmatory testing required for definitive results. Current Interpretive Data was last reviewed 2023. Barbiturates, ur Not Detected CutOff 200ng/mL [facility] Comment: Interpretive Data - Barbiturates: ??Samples containing greater than 200 ng/mL secobarbital or other cross-reacting barbiturate compounds are reported as positive. ??False positive and false negative results are possible. Confirmatory testing required for definitive results. Current Interpretive Data was last reviewed 2023. Benzodiazepines, ur Screen Positive, presumptive (A) CutOff 100ng/mL [facility] Comment: Interpretive Data - Benzodiazepines: ??Samples containing greater than 100 ng/mL nordiazepam or other cross-reacting compounds are reported as positive. False positive and false negative results are possible. Confirmatory testing required for definitive results. Current Interpretive Data was last reviewed 2023. Cannabinoids, ur Not Detected CutOff 50 ng/mL [facility] Comment: Interpretive Data - Cannabinoids: ??Samples containing greater than 50 ng/mL delta-9 THC -COOH or other cross-reacting compounds are reported as positive. ??False positive and false negative results are possible. ??Confirmatory testing required for definitive results. Current Interpretive Data was last reviewed 2023. Cocaine, ur Not Detected CutOff 150ng/mL [facility] Comment: Interpretive Data - Cocaine: ??Samples containing greater than 150 ng/mL benzoylecgonine or other cross-reacting compounds are reported as positive. False positive and false negative results are possible. Confirmatory testing required for definitive results. Current Interpretive Data was last reviewed 2023. Fentanyl, Ur Not Detected CutOff 5 ng/mL [facility] Comment: Interpretive Data - Fentanyl: ?? Samples containing greater than 5 ng/mL norfentanyl, fentanyl, or other cross-reacting fentanyl compounds are reported as positive. False positive and false negative results are possible. Confirmatory testing required for definitive results. Current Interpretive Data was last reviewed 2023. Methadone, ur Not Detected CutOff 300ng/mL [facility] Comment: Interpretive Data - Methadone: ??Samples containing greater than 300 ng/mL d,l-methadone or other cross-reacting compounds are reported as positive. ??False positive and false negative results are possible. Confirmatory testing required for definitive results. Current Interpretive Data was last reviewed 2023. Opiates, ur Not Detected CutOff 300ng/mL [facility] Comment: Interpretive Data - Opiates: ??Samples containing greater than 300 ng/mL morphine or other cross-reacting compounds are reported as positive. ??False positive and false negative results are possible. Confirmatory testing required for definitive results. Current Interpretive Data was last reviewed 2023. Oxycodone, ur Screen Positive, presumptive (A) CutOff 100ng/mL [facility] Comment: Interpretive Data - Oxycodone: ??Samples containing greater than 100 ng/mL oxycodone or other cross-reacting compounds are reported as ??positive. ??False positive and false negative results are possible. Confirmatory testing required for definitive results. Current Interpretive Data was last reviewed 2023. Phencyclidine, ur Not Detected CutOff 25 ng/mL [facility] Comment: Interpretive Data - Phencyclidine: ??Samples containing greater than 25 ng/mL phencyclidine or other cross-reacting compounds are reported as positive. ??False positive and false negative results are possible. Confirmatory testing required for definitive results. Current Interpretive Data was last reviewed 2023. Urine Creatinine 87 mg/dL [facility] Comment: Interpretive Data Urine Creatinine: < 10 mg/dL is extremely dilute = or > 10 but < 20 mg/dL is dilute = or > 20 mg/dL is normal Current Interpretive Data was last revised on 2017. Urine 09/23/2024 6:26 PM CORK TIPPER 09/23/2024 6:33 [address] [facility] - 09/23/2024 7:11 PM CORK TIPPER Drug of Abuse screening is performed by immunoassay for medical purposes only. ??This is not to be used for Pain Management purposes. us Jovany Stubbs MD LAB URINE ORDERABLES Final Result [facility] [address] Department [place] [address] * eGFR (09/23/2024 6:17 AM CORK TIPPER) eGFR >90 >=60 mL/min/1. 73 m2 Comment: [...] last reviewed 2021. Blood 09/23/2024 6:17 AM CORK TIPPER 09/23/2024 6:34 AM CORK TIPPER us Mitchell Grajeda MD LAB BLOOD ORDERABLES Final R esult [facility] [address] Department [place] [address] * (ABNORMAL) CBC without differential (09/23/2024 6:17 AM CORK TIPPER) WBC 8.7 3.8 - 9.9 K/cumm Hgb 12.7(L) 13.0 - 17.5 g/dL [facility] Hct 39.6 38.9 - 50.3 % [facility] Plt 244 150 - 400 K/cumm [facility] MPV 10.9 9.1 - 12.[address] [facility] RBC 4.30 4.30 - 5.80 M/cumm [facility] MCV 92.1 81.3 - 96.[address] [facility] MCH 29.5 27.1 - 33.[address] [facility] MCHC 32.1(L) 32.3 - 35.7 g/dL [facility] RDW CV 13.0 11.1 - 14.9 % [facility] RDW SD 43.8 35.7 - 48.[address] [facility] NRBC abs 0.00 0.00 - 0.01 K/cumm [facility] Blood 09/23/2024 6:17 AM CORK TIPPER 09/23/2024 6:34 AM CORK TIPPER us Kevin Brody MD LAB BLOOD ORDERABLES Suzie gutierrez Result [facility] [address] Department [place] [address] * (ABNORMAL) Renal function panel (09/23/2024 6:17 AM CORK TIPPER) Sodium 141 135 - 145 mmol/L Potassium, pl 4.1 3.3 - 4.9 mmol/L [facility] Chloride 100 97 - 110 mmol/L [facility] CO2 30 22 - 32 mmol/L [facility] Anion gap 11 2 - 15 mmol/L [facility] BUN 10 6 - 25 mg/dL [facility] Creatinine 0.72(L) 0.80 - 1.30 mg/dL [facility] Glucose 95 70 - 199 mg/dL [facility] Comment: Interpretive Data Fasting glucose >/= [...] 2022. Calcium 8.7 8.5 - 10.3 mg/dL [facility] Phosphorus, pl 3.9 2.3 - 4.5 mg/dL [facility] Albumin 3.5 3.5 - 5.0 g/dL [facility] Blood 09/23/2024 6:17 AM CORK TIPPER 09/23/2024 6:34 AM CORK TIPPER us Mitchell Grajeda MD LAB BLOOD ORDERABLES Final R esult [facility] [address] Department [place] [address] * X-ray chest 1 view (Portable) (09/22/2024 12:05 PM CORK TIPPER) Anatomical Region Laterality Modality Body, Chest N/A Computed Radiogr aphy 09/22/2024 12:4 0 PM CORK TIPPER Impressions 09/22/2024 12:40 PM CORK TIPPER Left upper extremity PICC tip in the mid SVC. Electronically signed by: Akil Cerda D.O. Narrative 09/22/2024 12:40 PM CORK TIPPER EXAMINATION: XR CHEST 1 VIEW HISTORY: check [...] SVC. Electronically signed by: Akil Cerda D.O. Sue TAYLOR IMG XR PROCEDURES Fi nal Result * [place] INSJ NON-TUNNELED CENTRAL VENOUS CATH AGE 5 YR/> (09/22/2024 11:15 AM CORK TIPPER) Narrative Sue Steinberg PA - 09/22/2024 11:15 AM CORK TIPPER Sue Steinberg PA ? 09/22/2024 11:46 AM PICC Line Insertion Date/Time: 09/22/2024 11:15 AM Performed by: Sue Steinberg PA Authorized by: Sue Steinberg PA ?? [place] Protocol: RN Notified of Procedure: yes ?? Informed consent: ??Risks, benefits, alternatives discussed and patient/compliance representative dealer/guardian agrees and accepts Patient's stated name/ matches [...] Final Result * eGFR (09/22/2024 8:12 AM CORK TIPPER) Pathologist [facility] [place] eGFR >90 >=60 mL/min/1. 73 m2 Comment: [...] last reviewed 2021. Blood 09/22/2024 8:12 AM CORK TIPPER 09/22/2024 8:51 AM CORK TIPPER us Mitchell Grajeda MD LAB BLOOD ORDERABLES Final R esult [facility] [address] Department of Laboratories [place], [place] [address] * CBC without differential (09/22/2024 8:12 AM CORK TIPPER) Pathologist [facility] [place] WBC 8.5 3.8 - 9.9 K/cumm Hgb 13.6 13.0 - 17.5 g/dL [facility] Hct 41.9 38.9 - 50.3 % [facility] Plt 241 150 - 400 K/cumm [facility] MPV 11.4 9.1 - 12.[address] [facility] RBC 4.59 4.30 - 5.80 M/cumm [facility] MCV 91.3 81.3 - 96.[address] [facility] MCH 29.6 27.1 - 33.[address] [facility] MCHC 32.5 32.3 - 35.7 g/dL [facility] RDW CV 13.0 11.1 - 14.9 % [facility] RDW SD 43.8 35.7 - 48.[address] [facility] NRBC abs 0.00 0.00 - 0.01 K/cumm [facility] Blood 09/22/2024 8:12 AM CORK TIPPER 09/22/2024 8:52 AM CORK TIPPER us Kevin Brody MD LAB BLOOD ORDERABLES Suzie l Result [facility] [address] Department [place] [address] * (ABNORMAL) Renal function panel (09/22/2024 8:12 AM CORK TIPPER) [facility] Sodium 143 135 - 145 mmol/L Potassium, pl 3.7 3.3 - 4.9 mmol/L [facility] Chloride 100 97 - 110 mmol/L [facility] CO2 31 22 - 32 mmol/L [facility] Anion gap 12 2 - 15 mmol/L [facility] BUN 9 6 - 25 mg/dL [facility] Creatinine 0.77(L) 0.80 - 1.30 mg/dL [facility] Glucose 144 70 - 199 mg/dL [facility] Comment: Interpretive Data Fasting glucose >/= [...] 2022. Calcium 9.3 8.5 - 10.3 mg/dL [facility] Phosphorus, pl 4.6(H) 2.3 - 4.5 mg/dL [facility] Albumin 4.1 3.5 - 5.0 g/dL [facility] Blood 09/22/2024 8:12 AM CORK TIPPER 09/22/2024 8:51 AM CORK TIPPER us Mitchell Grajeda MD LAB BLOOD ORDERABLES Final R esult [facility] [address] Department [place] [address] * eGFR (09/21/2024 6:09 AM CORK TIPPER) eGFR >90 >=60 mL/min/1. 73 m2 Comment: [...] last reviewed 2021. Blood 09/21/2024 6:09 AM CORK TIPPER 09/21/2024 7:01 AM CORK TIPPER us Mitchell Grajeda MD LAB BLOOD ORDERABLES Final R esult Performing Organization Address City/[facility]/ZIP Co de Phone Number [facility] [address] [place] [address] * (ABNORMAL) CBC without differential (09/21/2024 6:09 AM CORK TIPPER) WBC 8.8 3.8 - 9.9 K/cumm Hgb 11.7(L) 13.0 - 17.5 g/dL [facility] Hct 36.0(L) 38.9 - 50.3 % [facility] Plt 162 150 - 400 K/cumm [facility] MPV 12.0 9.1 - 12.[address] [facility] RBC 3.93(L) 4.30 - 5.80 M/cumm [facility] MCV 91.6 81.3 - 96.[address] [facility] MCH 29.8 27.1 - 33.[address] [facility] MCHC 32.5 32.3 - 35.7 g/dL [facility] RDW CV 13.0 11.1 - 14.9 % [facility] RDW SD 44.1 35.7 - 48.[address] [facility] NRBC abs 0.00 0.00 - 0.01 K/cumm [facility] Blood 09/21/2024 6:09 AM CORK TIPPER 09/21/2024 7:01 AM CORK TIPPER us Kevin Brody MD LAB BLOOD ORDERABLES Suzie l Result [facility] [address] Department [place] [address] * (ABNORMAL) Renal function panel (09/21/2024 6:09 AM CORK TIPPER) [facility] Sodium 143 135 - 145 mmol/L Potassium, pl 3.5 3.3 - 4.9 mmol/L [facility] Chloride 105 97 - 110 mmol/L [facility] CO2 26 22 - 32 mmol/L [facility] Anion gap 12 2 - 15 mmol/L [facility] BUN 10 6 - 25 mg/dL [facility] Creatinine 0.70(L) 0.80 - 1.30 mg/dL [facility] Glucose 102 70 - 199 mg/dL [facility] Comment: Interpretive Data Fasting glucose >/= [...] 2022. Calcium 8.6 8.5 - 10.3 mg/dL [facility] Phosphorus, pl 3.6 2.3 - 4.5 mg/dL [facility] Albumin 3.3(L) 3.5 - 5.0 g/dL [facility] Blood 09/21/2024 6:09 AM CORK TIPPER 09/21/2024 7:01 AM CORK TIPPER us Mitchell Grajeda MD LAB BLOOD ORDERABLES Final R esult [facility] [address] Department [place] [address] * (ABNORMAL) Vancomycin level trough Please draw trough at this specific time. (09/20/2024 5:36 PM CORK TIPPER) [facility] Vancomycin trough 7.4(L) 10.0 - 20.0 mcg/mL Blood 09/20/2024 5:36 PM CORK TIPPER 09/20/2024 5:40 [address] N[address] [facility] - 09/20/2024 6:00 PM CORK TIPPER Please draw trough at this specific time. Mitchell Grajeda MD LAB BLOOD ORDERABLES Final R esult Performing Organization Address [facility]/ZIP Co de Phone Number [facility] [address] [place] [address] * (ABNORMAL) CBC without differential (09/20/2024 5:58 AM CORK TIPPER) WBC 17.4(H) 3.8 - 9.9 K/cumm Hgb 12.8(L) 13.0 - 17.5 g/dL [facility] Hct 40.4 38.9 - 50.3 % [facility] Plt 174 150 - 400 K/cumm [facility] MPV 12.4(H) 9.1 - 12.[address] [facility] RBC 4.37 4.30 - 5.80 M/cumm [facility] MCV 92.4 81.3 - 96.[address] [facility] MCH 29.3 27.1 - 33.[address] [facility] MCHC 31.7(L) 32.3 - 35.7 g/dL [facility] RDW CV 12.9 11.1 - 14.9 % [facility] RDW SD 44.1 35.7 - 48.[address] [facility] NRBC abs 0.00 0.00 - 0.01 K/cumm [facility] Blood 09/20/2024 5:58 AM CORK TIPPER 09/20/2024 6:35 AM CORK TIPPER us Kevin Brody MD LAB BLOOD ORDERABLES Suzie l Result Performing Organization Address City/[facility]/ZIP Co de Phone Number [facility] [address] Department [place] [address] * (ABNORMAL) Tissue aerobic and anaerobic culture and gram stain Tissue Back, lower (09/19/2024 11:08AM CORK TIPPER) Direct Specimen Exam Stain: No polymorphonuclear leukocytes seen. No organisms seen. Report Final Report: Very light growth Staphylococcus aureus, methicillin susceptible (.) [facility] Organism STAPHYLOCOCCUS AUREUS, METHICILLIN SUSCEPTIBLE [facility] Tissue (Back, lower) 09/19/2024 11:08 AM CORK TIPPER 09/19/2024 12:11 [address] [facility] - 09/22/2024 9:51 AM CORK TIPPER Deep Tissue Organism Antibiotic Method Susceptibility Staphylococcus [...] MICROBIOLOGY - GENERA L ORDERABLES Final Result [facility] [address] [place] [address] * Mycology (fungal) culture Tissue Back, lower (09/19/2024 11:08 AM CORK TIPPER) Report Final Report: No fungus isolated Tissue (Back, lower) 09/19/2024 11:08 AM CORK TIPPER 09/19/2024 12:11 [address] [facility] - 10/17/2024 1:00 PM CORK TIPPER Deep Tissue Mycology cultures are held for 4 weeks. Kevin Brody MD LAB MICROBIOLOGY - GENERA L ORDERABLES Final Result [facility] [address] [place] [address] * Mycology (fungal) culture Abscess Back, lower (09/19/2024 11:07 AM CORK TIPPER) Report Final Report: No fungus isolated Abscess (Back, lower) 09/19/2024 11:07 AM CORK TIPPER 09/19/2024 12:25 [address] [facility] - 10/17/2024 1:00 PM CORK TIPPER Deep Mycology cultures are held for 4 weeks. us Kevin Brody MD LAB MICROBIOLOGY - GENERA L ORDERABLES Final Result Performing Organization Address [facility] Co de Phone Number [facility] [address] [place] [address] * Mycology (fungal) culture Abscess Back, lower (09/19/2024 11:07 AM CORK TIPPER) Report Final Report: No fungus isolated Abscess (Back, lower) 09/19/2024 11:07 AM CORK TIPPER 09/19/2024 12:25 [address] [facility] - 10/17/2024 1:00 PM CORK TIPPER Superficial Mycology cultures are held for 4 weeks. us Kevin Brody MD LAB MICROBIOLOGY - GENERA L ORDERABLES Final Result Performing Organization Address [facility] de Phone Number [facility] [address] [facility] [place] [address] * (ABNORMAL) Aerobic and anaerobic culture and gram stain Abscess Back, lower (09/19/2024 11:07 AM CORK TIPPER) Direct Specimen Exam Stain: No polymorphonuclear leukocytes seen. No organisms seen. Report Final Report: Light growth of: Staphylococcus aureus, methicillin susceptible Susceptibility reported on this organism on previous culture [id number] (.) [facility] Organism STAPHYLOCOCCUS AUREUS, METHICILLIN SUSCEPTIBLE [facility] Abscess (Back, lower) 09/19/2024 11:07 AM CORK TIPPER 09/19/2024 12:25 [address] [facility] - 09/23/2024 8:55 AM CORK TIPPER Deep us Kevin Brody MD LAB MICROBIOLOGY - GENERA L ORDERABLES Final Result Performing Organization Address [facility]/ZIP Co de Phone Number [facility] [address] Department [place] [address] * (ABNORMAL) Aerobic and anaerobic culture and gram stain Abscess Back, lower (09/19/2024 11:07 AM CORK TIPPER) Direct Specimen Exam Stain: Few polymorphonuclear leukocytes seen. Rare Gram Positive Cocci Report Final Report: Moderate growth of: Staphylococcus aureus, methicillin susceptible (.) [facility] Organism STAPHYLOCOCCUS AUREUS, METHICILLIN SUSCEPTIBLE [facility] Abscess (Back, lower) 09/19/2024 11:07 AM CORK TIPPER 09/19/2024 12:25 PM CORK TIPPER Narrative [facility] - 09/23/2024 8:49 AM CORK TIPPER Superficial Organism Antibiotic Method Susceptibility Staphylococcus aureus, [...] L ORDERABLES Final Result Performing Organization Address [facility] Co de Phone Number [facility] [address] Department [place] [address] * FL AN ELECTIVE ENDOTRACHEAL AIRWAY, [place] AN PROCEDURE PLACEHOLDER (09/19/2024 10:49 AM CORK TIPPER) Narrative Sonia David CRNA - 09/19/2024 10:49 AM CORK TIPPER Sonia David CRNA ? 09/19/2024 10:50 AM Airway Patient location: OR Urgency: elective Indications for airway management: anesthesia Difficult airway: no Staff: Placed by: COMPLIANCE REPRESENTATIVE DEALER: Sonia David CRNA Emergent airway documentation: Risks [...] * (ABNORMAL) Differential, auto (09/19/2024 1:19 AM CORK TIPPER) Pathologist [facility] [place] Neutrophil abs 13.1(H) 1.5 - 6.5 K/cumm Imm gran abs 0.1 0.0 - 0.1 K/cumm [facility] Lymphocyte abs 1.3 0.8 - 3.3 K/cumm [facility] Monocyte abs 1.3(H) 0.2 - 0.8 K/cumm [facility] Eosinophil abs 0.0 0.0 - 0.5 K/cumm [facility] Basophil abs 0.0 0.0 - 0.1 K/cumm [facility] Neutrophil pct 83.0 % [facility] Comment: Interpretive Data Percent cell count reference ranges are not reported, since discordance with absolute values may lead to misinterpretation of CBC data. Current Interpretive Data was last revised on 2018. Imm gran pct 0.5 % [facility] Comment: Interpretive Data Percent cell count reference ranges are not reported, since discordance with absolute values may lead to misinterpretation of CBC data. Current Interpretive Data was last revised on 2018. Lymphocyte pct 8.0 % [facility] Comment: Interpretive Data Percent cell count reference ranges are not reported, since discordance with absolute values may lead to misinterpretation of CBC data. Current Interpretive Data was last revised on 2018. Monocyte pct 8.3 % [facility] Comment: Interpretive Data Percent cell count reference ranges are not reported, since discordance with absolute values may lead to misinterpretation of CBC data. Current Interpretive Data was last revised on 2018. Eosinophil pct 0.1 % [facility] Comment: Interpretive Data Percent cell count reference ranges are not reported, since discordance with absolute values may lead to misinterpretation of CBC data. Current Interpretive Data was last revised on 2018. Basophil pct 0.1 % [facility] Comment: Interpretive Data Percent cell count reference ranges are not reported, since discordance with absolute values may lead to misinterpretation of CBC data. Current Interpretive Data was last revised on 2018. Blood 09/19/2024 1:19 AM CORK TIPPER 09/19/2024 1:19 AM CORK TIPPER us Kita Astudillo MD LAB BLOOD ORDERABLES Final Resu lt [facility] [address] Department [place] [address] * (ABNORMAL) CBC with auto differential (09/19/2024 1:19 AM CORK TIPPER) WBC 15.8(H) 3.8 - 9.9 K/cumm Hgb 13.0 13.0 - 17.5 g/dL [facility] Hct 39.4 38.9 - 50.3 % [facility] Plt 150 150 - 400 K/cumm [facility] MPV 12.1 9.1 - 12.[address] [facility] RBC 4.38 4.30 - 5.80 M/cumm [facility] MCV 90.0 81.3 - 96.[address] [facility] MCH 29.7 27.1 - 33.[address] [facility] MCHC 33.0 32.3 - 35.7 g/dL [facility] RDW CV 12.7 11.1 - 14.9 % [facility] RDW SD 42.4 35.7 - 48.[address] [facility] NRBC abs 0.00 0.00 - 0.01 K/cumm [facility] Blood 09/19/2024 1:19 AM CORK TIPPER 09/19/2024 1:19 AM CORK TIPPER us Kita Astudillo MD LAB BLOOD ORDERABLES Final Resu lt Performing Organization Address [facility] de Phone Number [facility] [address] Department [place] [address] * eGFR (09/19/2024 12:55 AM CORK TIPPER) eGFR >90 >=60 mL/min/1. 73 m2 Comment: [...] reviewed 2021. Blood 09/19/2024 12:5 5 AM CORK TIPPER 09/19/2024 1:19 AM CORK TIPPER us Kita Astudillo MD LAB BLOOD ORDERABLES Final Resu lt Performing Organization Address [facility] Co de Phone Number [facility] [address] [facility] [place] [address] * Blood culture Blood (09/19/2024 12:55 AM CORK TIPPER) Report Final Report: No growth Blood 09/19/2024 12:5 5 AM CORK TIPPER 09/19/2024 2:14 AM CORK TIPPER Narrative [facility] - 09/24/2024 7:01 AM CORK TIPPER From a different site than #1. Collection->Peripheral [...] organism identification may be performed using the [employer] Blood Culture Identification panel. This assay detects microbial DNA in a blood culture broth. This assay has been cleared by the [place] Food and Drug Administration and its performance characteristics have been verified by the [facility]. Interpretive data was last revised on October 27, 2022. Kita Astudillo MD LAB [facility]OLOGY - [facility] Final Result [facility] [address] [facility] [place] [address] * Blood culture Blood (09/19/2024 12:55 AM CORK TIPPER) Report Final Report: No growth Blood 09/19/2024 12:5 5 AM CORK TIPPER 09/19/2024 2:14 AM CORK TIPPER Narrative [facility] - 09/24/2024 7:01 AM CORK TIPPER Collection->Peripheral Interpretive Data 1. Blood cultures are incubated and monitored continuously for 5 days (120 hours). The first negative report is issued within 24 hours of receipt in the laboratory. 2. All positive cultures are resulted and called to physicians/care providers as soon as they are detected. 3. A rapid molecular test for organism identification may be performed using the [employer] Blood Culture Identification panel. This assay detects microbial DNA in a blood culture broth. This assay has been cleared by the [place] Food and Drug Administration and its performance characteristics have been verified by the [facility]. Interpretive data was last revised on October 27, 2022. Kita Astudillo MD LAB MICROBIOLOGY - [facility] MELVIN NEGRON Final Result [facility] [address] Department [place] [address] * (ABNORMAL) Comprehensive metabolic panel (09/19/2024 12:55 AM CORK TIPPER) Sodium 136 135 - 145 mmol/L Potassium, pl 4.1 3.3 - 4.9 mmol/L [facility] Comment:Hemolyzed; potassium value may be falsely elevated by as much as 0.3 - 0.5 mmol/L. Suggest redraw and reanalysis Chloride 98 97 - 110 mmol/L [facility] CO2 26 22 - 32 mmol/L [facility] Anion gap 12 2 - 15 mmol/L [facility] BUN 8 6 - 25 mg/dL [facility] Creatinine 0.70(L) 0.80 - 1.30 mg/dL [facility] Glucose 139 70 - 199 mg/dL [facility] Comment: Interpretive Data Fasting glucose >/= [...] 2022. Calcium 9.1 8.5 - 10.3 mg/dL [facility] Bilirubin, total 0.9 0.1 - 1.2 mg/dL [facility] Protein, pl 6.7 6.5 - 8.5 g/dL [facility] Albumin 3.7 3.5 - 5.0 g/dL [facility] Alk phos 92 40 - 130 Units/L [facility] ALT 18 7 - 55 Units/L [facility] AST 22 10 - 50 Units/L [facility] Comment:Slightly Hemolyzed S pecimen Blood 09/19/2024 12:5 5 AM CORK TIPPER 09/19/2024 1:19 AM CORK TIPPER us Kita Astudillo MD LAB BLOOD ORDERABLES Final Resu lt [facility] [address] [place] [address] * (ABNORMAL) CBC without differential (08/14/2024 7:13 AM CORK TIPPER) WBC 16.5(H) 3.8 - 9.9 K/cumm Hgb 14.5 13.0 - 17.5 g/dL [facility] Hct 43.7 38.9 - 50.3 % [facility] Plt 169 150 - 400 K/cumm [facility] MPV 12.0 9.1 - 12.[address] [facility] RBC 4.87 4.30 - 5.80 M/cumm [facility] MCV 89.7 81.3 - 96.[address] [facility] MCH 29.8 27.1 - 33.[address] [facility] MCHC 33.2 32.3 - 35.7 g/dL [facility] RDW CV 13.3 11.1 - 14.9 % [facility] RDW SD 44.0 35.7 - 48.[address] [facility] NRBC abs 0.00 0.00 - 0.01 K/cumm [facility] Blood 08/14/2024 7:13 AM [employer] 08/14/2024 7:51 AM [employer] us Kevin Brody MD LAB BLOOD ORDERABLES Suzie l Result [facility] [address] Department [place] [address] * Surgical pathology (08/13/2024 11:16 AM CORK TIPPER) Disc, intervertebral 024 11:16 AM CORK TIPPER 08/13/2024 1:53 PM CORK TIPPER Narrative 08/14/2024 2:09 PM CORK TIPPER [address], [place], [place] ??[address] Tele: ?? Batsheva Ji MD - Sales Representative Consultant Note to Patients: This report may contain [...] REPORT Patient Name: ??TRAMAINE MARIN JR. Address: ??[address] [place] [address] ??[id number] Gender: ??M : ??1970 (Age: 53) Service: ??Ortho Location: ??[id number], ?? Hospital #: ??[id number] Patient Type: ??[facility] Accession #: ? [id number] Taken: ? 08/13/2024 Received ? 08/13/2024 Reported: ? 08/14/2024 Physician(s): ? Kevin Brody M.D. Elton Higinio Jean Baptiste M.D. DIAGNOSIS: Intervertebral disc, L3-5, discectomy: ? - Disc material with degenerative changes [facility]08/14/2024 14:09 Examining Pathologist: Asa Rodrigues M.D. Report Reviewed and Electronically Signed By ??Asa Rodrigues M.D. SPECIMEN TYPE: A: DISC MATERIAL CLINICAL IMPRESSION AND HISTORY: Pseudoclaudication syndrome GROSS DESCRIPTION: Received in formalin labeled with TRAMAINE MICHELE and disc material are red- brown irregular tissue fragments measuring 3.9 x 3.5 x 0.6 cm in aggregate Aviation Electronic Warfare Operator sections are submitted in cassette labeled A1. ?? [facility] MICROSCOPIC DESCRIPTION: Microscopic examination supports the above captioned diagnosis. This case was signed out at [facility], [address] [place] [id number]. Clerical Data Follows A; 29441 REPORT IMAGES AND/OR SCANNED DOCUMENTS ONLY VIEWABLE IN PDF FORMAT The immunohistochemical test(s) cited in this report, if any, was developed and its performance characteristics determined by [facility] Pathology Department. ??It has not been cleared or approved by the U.S. Food and Drug Administration. ??The FDA has determined that such clearance or approval is not necessary. ??This test is used for clinical purposes. ??It should not be regarded as investigational or for research. ??[facility] is certified under the Clinical Laboratory [...] completely in the following laboratories: [facility], [address] [place] [id number] [place] [address], [address] [place] [address]. Kevin Brody MD LAB PATHOLOGY ORDERABLES Final Result * FL Fluoroscopy < 1 Hour (08/13/2024 11:08 AM CORK TIPPER) Narrative RAD_P[facility] - 08/13/2024 11:09 AM CORK TIPPER The images from this study are not interpreted by Radiology. ??Please refer to the physician's procedure / OR operative note. Kevin Brody MD IM FLUOROSCOPY PROCEDURE S Final Result RAD_PACS_[facility] * XR Spine Lumbar 2 or 3 Views (08/13/2024 11:08 AM CORK TIPPER) Anatomical Region Laterality Modality Spine N/A Computed Radiogr aphy 08/13/2024 11:3 5 AM CORK TIPPER Impressions 08/13/2024 11:35 AM CORK TIPPER FINDINGS/IMPRESSION: 6 intraoperative fluoroscopic images are submitted for review. Fusion L4-L5 vertebral bodies. Postoperative changes of L3-L5 posterior fusion and decompression with L3-L4 interbody fusion device placement. Hardware is grossly intact. Please refer to the dedicated operative report for complete evaluation of real-time findings. Electronically signed by: Justus Toledo M.D. Narrative 08/13/2024 11:35 AM CORK TIPPER EXAM: XR SPINE LUMBAR 2 OR 3 [...] IMG XR PROCEDURES Final R esult * FL AN ELECTIVE ENDOTRACHEAL AIRWAY, FL AN PROCEDURE PLACEHOLDER (08/13/2024 7:59 AM CORK TIPPER) Narrative Naomi Galvan CRNA - 08/13/2024 7:59 AM CORK TIPPER Naomi Galvan CRNA ? 08/13/2024 ??8:01 AM Airway Patient location: OR Urgency: elective Indications for airway management: anesthesia Difficult airway: no Staff: Supervising provider: Jason Christianson MD Placed by: COMPLIANCE REPRESENTATIVE DEALER: Naomi Galvan CRNA Emergent airway documentation: Risks [...] Result * Check Sample (08/13/2024 6:59 AM CORK TIPPER) ABO Rh O Positive MBC HCLL OTHER 08/13/2024 6:59 AM CORK TIPPER 08/13/2024 7:23 AM CORK TIPPER us Ara Robbins LOT WORKER LAB BLOOD ORDERABLES Fi nal Result [facility] [address] Department [place] [address] [facility] * POCT lipid panel (07/30/2024 10:33 AM CORK TIPPER) Cholesterol, POC 186 mg/dL HDL, POC 28 mg/dL Triglycerides, POC 215 mg/dL LDL Cholesterol POC 115 mg/dL Chol/HDL Ratio, POC 6.7 Non-HDL Cholesterol, POC 158 mg/dL Cholesterol Total, POC 186 mg/dL Capillary blood 07/30/2024 1 0:33 AM CORK TIPPER us Hunter Smith MD POINT OF CARE TEST ORDERABLES Fi nal Result * ECG 12 lead (07/30/2024 10:22 AM CORK TIPPER) us Hunter Smith MD ECG ORDERABLES Edited Result - Final * Differential, auto (07/23/2024 10:10 AM CDT) Pathologist [facility] Neutrophil abs 5.6 1.5 - 6.5 K/cumm Imm gran abs 0.0 0.0 - 0.1 K/cumm [facility] Lymphocyte abs 2.1 0.8 - 3.3 K/cumm [facility] Monocyte abs 0.7 0.2 - 0.8 K/cumm [facility] Eosinophil abs 0.2 0.0 - 0.5 K/cumm [facility] Basophil abs 0.0 0.0 - 0.1 K/cumm [facility] Neutrophil pct 64.7 % [facility] Comment: Interpretive Data Percent cell count reference ranges are not reported, since discordance with absolute values may lead to misinterpretation of CBC data. Current Interpretive Data was last revised on 2018. Imm gran pct 0.2 % [facility] Comment: Interpretive Data Percent cell count reference ranges are not reported, since discordance with absolute values may lead to misinterpretation of CBC data. Current Interpretive Data was last revised on 2018. Lymphocyte pct 24.8 % [facility] Comment: Interpretive Data Percent cell count reference ranges are not reported, since discordance with absolute values may lead to misinterpretation of CBC data. Current Interpretive Data was last revised on 2018. Monocyte pct 8.1 % [facility] Comment: Interpretive Data Percent cell count reference ranges are not reported, since discordance with absolute values may lead to misinterpretation of CBC data. Current Interpretive Data was last revised on 2018. Eosinophil pct 1.7 % [facility] Comment: Interpretive Data Percent cell count reference ranges are not reported, since discordance with absolute values may lead to misinterpretation of CBC data. Current Interpretive Data was last revised on 2018. Basophil pct 0.5 % [facility] Comment: Interpretive Data Percent cell count reference ranges are not reported, since discordance with absolute values may lead to misinterpretation of CBC data. Current Interpretive Data was last revised on 2018. Blood 07/23/2024 10:1 0 AM CDT 07/23/2024 10:10 AM CDT us Ara Robbins LOT WORKER LAB BLOOD ORDERABLES Fi nal Result Performing Organization Address City/[facility] Co de Phone Number [facility] [address] Department of Laboratories [place], [place] [id number] * CBC with auto differential (07/23/2024 10:10 AM CDT) WBC 8.6 3.8 - 9.9 K/cumm Hgb 15.7 13.0 - 17.5 g/dL [facility] Hct 47.5 38.9 - 50.3 % [facility] Plt 184 150 - 400 K/cumm [facility] MPV 11.6 9.1 - 12.[address] [facility] RBC 5.27 4.30 - 5.80 M/cumm [facility] MCV 90.1 81.3 - 96.[address] [facility] MCH 29.8 27.1 - 33.[address] [facility] MCHC 33.1 32.3 - 35.7 g/dL [facility] RDW CV 12.9 11.1 - 14.9 % [facility] RDW SD 42.5 35.7 - 48.[address] [facility] NRBC abs 0.00 0.00 - 0.01 K/cumm [facility] Blood 07/23/2024 10:1 0 AM CDT 07/23/2024 10:10 AM CDT Ara Robbins NP LAB BLOOD ORDERABLES Fi nal Result Performing Organization Address [facility] Co de Phone Number [facility] [address] [facility] [place] [address] * Vitamin D 25 hydroxy (07/23/2024 10:10 AM CDT) Vitamin D 25-OH 38 30 - 80 ng/mL Blood 07/23/2024 10:1 0 AM CDT 07/23/2024 10:10 AM CDT Ara Robbins NP LAB BLOOD ORDERABLES Fi nal Result Performing Organization Address [facility] Co de Phone Number [facility] [address] [facility] [place] [address] * (ABNORMAL) Hemoglobin A1c (07/23/2024 10:10 AM CDT) Pathologist [facility] Hgb A1C 5.7(H) 4.0 - 5.6 % Estimated Average Glucose 117 mg/dL [facility] Comment: The ADA recommends reporting an estimated Average Glucose (eAG) with all Hemoglobin A1c results using the equation derived from a study of 507 normal and diabetic adults. ??Minority populations were underrepresented and children were not included. ?? (Diabetes Care 31:0806-4370, 2008). ??The eAG is not equivalent to a fasting glucose. Blood 07/23/2024 10:1 0 AM CDT 07/23/2024 10:10 AM CDT Ara Robbins NP LAB BLOOD ORDERABLES Fi nal Result Performing Organization Address [facility] Co de Phone Number [facility] [address] [facility] [place] [address] * Type and screen (07/23/2024 9:54 AM CDT) Pathologist [facility] [place], indirect Negative ABO Rh O Positive [facility] Blood 07/23/2024 9:54 AM CDT 07/23/2024 10:24 AM CDT Narrative [facility] - 07/23/2024 11:28 AM CDT Is this test being ordered in advance for a procedure?->Yes Expected date of procedure:->08/13/24 Has the patient been transfused in the past 3 months?->No us Ara Robbins LOT WORKER LAB BLOOD BANK TEST ORD ERABLES Final Result [facility] [address] [place] [address] from Last 3 Months Insurance [facility] [place] Advance Directives For more information, please contact: [phone] * Full Code (Latest Code Status on File) Date Activated Date Inactivated Comments 09/19/2024 12:47 PM 10/05/2024 3:11 PM * Full Code Date Activated Date Inactivated Comments 09/18/2024 8:09 PM 09/19/2024 12:47 PM * Full Code Date Activated Date Inactivated Comments 08/13/2024 2:58 PM 08/14/2024 4:58 PM Care Teams Pharmacy Technician Instructor Relationship Specialty Start Date End Date Elton De La Fuente MD PCP - General Family Medicine 06/02/21
== END 2024-10-21 14:06 | disposition home or self-care (01) ==
LOC: CHSIMG 14:07
PROVIDERS: PCP Family Medicine; Visit Provider Neurological Surgery
DX: Z98.1 Arthrodesis status (principal); M43.06 Spondylolysis, lumbar region
CPT/HCPCS: 72100

== ENCOUNTER 2024-10-30 07:10 | Outpatient (CLI) | payer BC, SELFPAY ==
--- OUTSIDE RECORDS SUMMARY | 2024-10-30 07:15 | XMS_ITS | Clinical Summary ---
Author Organization [facility] Address [address] [place] [address] Care Team Providers Care Captain Fishing Vessel Name Role Phone Elton De La Fuente MD Primary Care Provider [phone] Allergies Active Allergy Reactions Criticality Noted Date [...] patient's age to complete this topic [place] [place] [address] Care Teams Captain Fishing Vessel Relationship Specialty Start Date End Date Elton De La Fuente MD [address] [place] [address] PCP - General FAMILY PRACTICE 05/08/24
--- OUTSIDE RECORDS SUMMARY | 2024-10-30 07:15 | XMS_ITS | Referral Summary ---
Author Organization [facility] Address [address] [place] [address] Care Team Providers Care Cloth Tester Quality Name Role Phone Elton De La Fuente MD Primary Care Provider [phone] Encounters Date Type Department Care Team Description 10/17/2024 8:34 AM FURNITURE RENTAL CONSULTANT - 10/17/2024 11:59 PM FURNITURE RENTAL CONSULTANT Hospital Encounter [facility] - Interventional Radiology [address] [place] [phone] Infection following a procedure, other surgical site, subsequent encounter Discharge Disposition: Discharge to home or self care 09/18/2024 7:53 PM FURNITURE RENTAL CONSULTANT - 10/05/2024 11:00 AM FURNITURE RENTAL CONSULTANT Hospital Encounter [facility] [address] [place] [phone] Kita Astudillo MD Willis, Devin Ray, MD Sufi, MD Yessica Vigil Fatima A., MD Alkaade, Saad, MD Hammes, Amanda Jane, MD Teckchandani, Renu, MD Wound infection (Primary Dx); Cellulitis of other specified site; Cellulitis, unspecified cellulitis site [L03.90]; Lumbar stenosis with neurogenic claudication [M48.062] Discharge Disposition: Discharge to home or self care 09/19/2024 10:31 AM FURNITURE RENTAL CONSULTANT Anesthesia Event [facility] Operating Room [address] [place] [phone] Stephenie Rodriguez DO Tynes, Jessika Olegovna, CRNA 09/19/2024 10:03 AM FURNITURE RENTAL CONSULTANT - 09/19/2024 12:08 PM FURNITURE RENTAL CONSULTANT Surgery [facility] Operating Room [address] [place] [phone] Kevin Brody MD INCISION AND DRAINAGE - LUMBAR 09/18/2024 Orders Only [address] [phone] Kita Atsudillo MD 09/17/2024 Patient Self-Triage [facility] HealthCare/ Physicians [address] [place] [phone] Mychart, Generic Provider 08/13/2024 5:41 AM FURNITURE RENTAL CONSULTANT - 08/14/2024 12:58 PM FURNITURE RENTAL CONSULTANT Hospital Encounter [address] [phone] Kevin Brody MD Pseudoclaudication syndrome Discharge Disposition: Discharge to home or self care 08/13/2024 Orders Only [facility] Operating Room [address] [place] [phone] Kevin Brody MD 08/13/2024 7:30 AM FURNITURE RENTAL CONSULTANT - 08/13/2024 12:30 PM FURNITURE RENTAL CONSULTANT Surgery [facility] Operating Room [address] [place] [phone] Kevin Brody MD L3-5 Decompressive Laminectomy, Posterior Lumbar Interbody Fusion using Zavation EZ Span Cage, Mathew Screws, Local Autograph and L4-5 Repeat Discectomy 08/13/2024 7:26 AM FURNITURE RENTAL CONSULTANT Anesthesia Event [facility] Operating Room [address] [place] [phone] Jason Christianson MD Salameh, Besan Mohammed, PA 07/30/2024 10:15 AM FURNITURE RENTAL CONSULTANT Office Visit [facility] Medical Group Cardiology [address] [place] [address] [place] [phone] Hunter mSith MD Preop cardiovascular exam (Primary Dx); Tobacco abuse; Lipid screening from Last 3 Months Allergies Active Allergy [...] patch on the skin daily 09/25/19 25 Active ondansetron ODT (ZOFRAN-ODT) 4 mg disintegrating [...] a day 6 capsule 10/05/19 25 Active pregabalin (LYRICA) 75 mg capsule [...] 0.6 oz pur e alcohol) Recovering alcoholic-whiskey [facility] Utilities Answer Date Recorded In the past 12 months has e [employer] gas, oil, or water [email or web address] threatened to shut off services in your [...] week 09/19/2024 How often do you attend [facility] ch or druze services? Never 09/19/2024 Do you belong to [...] any time in the past 12 m [facility], were you homeless or living in a detention (including now)? No 09/19/2024 Personal Safety Answer Date Recorded Have you ever been in or are you currently in a harmful physical or emotional relationship or is someone making you feel afraid or unsafe? 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 Not on file Not on file Not on file Last Filed Vital Signs Vital Sign Reading Time Taken Comments Blood Pressure 173/100 10/17/2024 9:20 AM FURNITURE RENTAL CONSULTANT Pulse 69 10/17/2024 9:20 AM FURNITURE RENTAL CONSULTANT Temperature 37.3 ??C (99.1 ??F) 10/17/2024 8:45 AM CS T Respiratory Rate 16 10/17/2024 9:20 AM FURNITURE RENTAL CONSULTANT Oxygen Saturation 95% 10/17/2024 9:20 AM FURNITURE RENTAL CONSULTANT Inhaled Oxygen Concentration - - Weight 87.1 kg (192 lb) 10/17/2024 8:45 AM FURNITURE RENTAL CONSULTANT Height 182.9 cm (6') 10/17/2024 8:45 AM FURNITURE RENTAL CONSULTANT Body Mass Index 26.04 10/17/2024 8:45 AM FURNITURE RENTAL CONSULTANT Plan of Treatment Not on file Medical Devices Implanted Type Area Public Health Policy Analyst Device Identifier Shelf Expiration Date Model / Serial / Lot Biocomposites Stimulan Rapid Cure Kit Paste Bi Developer 5cc 12.5cc Bone Void 620-005 - [id number] Implanted:Qty: 1 on 08/13/2024 by Kevin Brody MD at [facility] N/A: Spine Lumbar Biocomposites [id number] 04/24/2027 620-005 / / [id number] [employer] Cage Spinal Lumbar 10 Degree Tlif Expandable 7-11.5mm Titanium [id number] - [id number] Implanted:Qty: 2 on 08/13/2024 by Kevin Brody MD at [facility] N/A: Spine Lumbar [employer] [id number] / / Amina Spine 4.5mm 35mm Polyaxial Spine Screw Bone Deformity [id number] - [id number] Implanted:Qty: 6 on 08/13/2024 by Kevin Brody MD at [facility] N/A: Spine Lumbar Cicero Spine [id number] / / Cicero Spine 4.5mm 75mm Contour Ulises Spinal Cocr [id number] - [id number] Implanted:Qty: 2 on 08/13/2024 by Kevin Brody MD at [facility] N/A: Spine Lumbar Cicero Spine [id number] 5 / / Cicero Spine 26mm Semiadjustable Transverse Spine Connector Ulises Posterior [id number] - [id number] Implanted:Qty: 1 on 08/13/2024 by Kevin Brody MD at [facility] N/A: Spine Lumbar Amina Spine [id number] 6A / / Cicero Spine 32mm Semiadjustable Transverse Spine Connector Ulises Posterior [id number] - [id number] Implanted:Qty: 1 on 08/13/2024 by Kevin Brody MD at [facility] N/A: Spine Lumbar Amina Spine [id number] [id number] / / Procedures Procedure Name Priority Date/Time Associated Diagnosis Comments IR PICC LINE PLACEMENT > 5 YEARS Schedule Routine, Read Routine (OP Routine) 10/17/2024 9:26 AM FURNITURE RENTAL CONSULTANT Infection following a procedure, other surgical site, subsequent encounter EGFR Routine 09/28/2024 5:42 AM FURNITURE RENTAL CONSULTANT RENAL FUNCTION PANEL Routine 09/28/2024 5:42 AM FURNITURE RENTAL CONSULTANT EGFR Routine 09/27/2024 4:57 AM FURNITURE RENTAL CONSULTANT RENAL FUNCTION PANEL Routine 09/27/2024 4:57 AM FURNITURE RENTAL CONSULTANT EGFR Routine 09/26/2024 5:36 AM FURNITURE RENTAL CONSULTANT RENAL FUNCTION PANEL Routine 09/26/2024 5:36 AM FURNITURE RENTAL CONSULTANT EGFR Routine 09/25/2024 5:49 AM FURNITURE RENTAL CONSULTANT RENAL FUNCTION PANEL Routine 09/25/2024 5:49 AM FURNITURE RENTAL CONSULTANT EGFR Routine 09/24/2024 7:50 AM FURNITURE RENTAL CONSULTANT RENAL FUNCTION PANEL Routine 09/24/2024 7:50 AM FURNITURE RENTAL CONSULTANT CBC WITHOUT DIFFERENTIAL Routine 09/24/2024 7:50 AM FURNITURE RENTAL CONSULTANT DRUGS OF ABUSE SCREEN, URINE WITHOUT CONFIRMATION Routine 09/23/2024 6:26 PM FURNITURE RENTAL CONSULTANT EGFR Routine 09/23/2024 6:17 AM FURNITURE RENTAL CONSULTANT RENAL FUNCTION PANEL Routine 09/23/2024 6:17 AM FURNITURE RENTAL CONSULTANT CBC WITHOUT DIFFERENTIAL Routine 09/23/2024 6:17 AM FURNITURE RENTAL CONSULTANT XR CHEST 1 VIEW ED Urgent/IP Urgent 09/22/2024 12:05 PM FURNITURE RENTAL CONSULTANT OR INSJ NON-TUNNELED CENTRAL VENOUS CATH AGE 5 YR/> Routine 09/22/2024 11:15 AM FURNITURE RENTAL CONSULTANT Wound infection EGFR Routine 09/22/2024 8:12 AM FURNITURE RENTAL CONSULTANT RENAL FUNCTION PANEL Routine 09/22/2024 8:12 AM FURNITURE RENTAL CONSULTANT CBC WITHOUT DIFFERENTIAL Routine 09/22/2024 8:12 AM FURNITURE RENTAL CONSULTANT EGFR Routine 09/21/2024 6:09 AM FURNITURE RENTAL CONSULTANT RENAL FUNCTION PANEL Routine 09/21/2024 6:09 AM FURNITURE RENTAL CONSULTANT CBC WITHOUT DIFFERENTIAL Routine 09/21/2024 6:09 AM FURNITURE RENTAL CONSULTANT VANCOMYCIN LEVEL TROUGH Timed 09/20/2024 5:36 PM FURNITURE RENTAL CONSULTANT CBC WITHOUT DIFFERENTIAL Routine 09/20/2024 5:58 AM FURNITURE RENTAL CONSULTANT MYCOLOGY (FUNGAL) CULTURE Routine 09/19/2024 11:08 AM FURNITURE RENTAL CONSULTANT TISSUE AEROBIC AND ANAEROBIC CULTURE AND GRAM STAIN Routine 09/19/2024 11:08 AM FURNITURE RENTAL CONSULTANT MYCOLOGY (FUNGAL) CULTURE Routine 09/19/2024 11:07 AM FURNITURE RENTAL CONSULTANT AEROBIC AND ANAEROBIC CULTURE AND GRAM STAIN Routine 09/19/2024 11:07 AM FURNITURE RENTAL CONSULTANT MYCOLOGY (FUNGAL) CULTURE Routine 09/19/2024 11:07 AM FURNITURE RENTAL CONSULTANT AEROBIC AND ANAEROBIC CULTURE AND GRAM STAIN Routine 09/19/2024 11:07 AM FURNITURE RENTAL CONSULTANT OR AN PROCEDURE PLACEHOLDER Routine 09/19/2024 10:49 AM FURNITURE RENTAL CONSULTANT OR AN ELECTIVE ENDOTRACHEAL AIRWAY Routine 09/19/2024 10:49 AM FURNITURE RENTAL CONSULTANT INCISION AND DRAINAGE - BACK 09/19/2024 10:30 AM FURNITURE RENTAL CONSULTANT LUMBAR WOUND INFECTION DIFFERENTIAL AUTO Routine 09/19/2024 1:1 9 AM FURNITURE RENTAL CONSULTANT CBC WITH AUTO DIFFERENTIAL Routine 09/19/2024 1:19 AM FURNITURE RENTAL CONSULTANT EGFR Routine 09/19/2024 12:55 AM FURNITURE RENTAL CONSULTANT COMPREHENSIVE METABOLIC PANEL Routine 09/19/2024 12:55 AM FURNITURE RENTAL CONSULTANT BLOOD CULTURE Routine 09/19/2024 12:55 AM FURNITURE RENTAL CONSULTANT BLOOD CULTURE Routine 09/19/2024 12:55 AM FURNITURE RENTAL CONSULTANT CBC WITHOUT DIFFERENTIAL Routine 08/14/2024 7:13 AM FURNITURE RENTAL CONSULTANT SURGICAL PATHOLOGY Routine 08/13/2024 11:16 AM FURNITURE RENTAL CONSULTANT FL FLUOROSCOPY < 1 HOUR IP Routine 08/13/2024 11:08 AM FURNITURE RENTAL CONSULTANT XR SPINE LUMBAR 2 OR 3 VIEWS IP Routine 08/13/2024 11:08 AM FURNITURE RENTAL CONSULTANT OR AN PROCEDURE PLACEHOLDER Routine 08/13/2024 7:59 AM FURNITURE RENTAL CONSULTANT OR AN ELECTIVE ENDOTRACHEAL AIRWAY Routine 08/13/2024 7:59 AM FURNITURE RENTAL CONSULTANT FUSION LUMBAR - POSTERIOR 2 LEVELS 08/13/2024 7:30 AM FURNITURE RENTAL CONSULTANT Pseudoclaudication syndrome B CHECK SAMPLE STAT 08/13/2024 6:59 AM FURNITURE RENTAL CONSULTANT POCT LIPID PANEL Routine 07/30/2024 10:33 AM FURNITURE RENTAL CONSULTANT Lipid screening ECG 12-LEAD Routine 07/30/2024 10:22 AM FURNITURE RENTAL CONSULTANT Preop cardiovascular exam from Last 3 Months Results * IR PICC Line Placement Over 5 Years of Age (10/17/2024 9:26 AM FURNITURE RENTAL CONSULTANT) Anatomical Region Laterality Modality Body N/A X-Ray Angiograph y 10/17/2024 10:2 5 AM FURNITURE RENTAL CONSULTANT Impressions 10/17/2024 10:25 AM FURNITURE RENTAL CONSULTANT Successful nontunneled catheter placement. PLAN: The catheter is ready for immediate use. ??When treatment is completed, this catheter can be removed at the bedside according to standard hospital protocol. ?? Electronically signed by: Patrica Garnica PA-C Narrative 10/17/2024 10:25 AM FURNITURE RENTAL CONSULTANT EXAMINATION: ??NONTUNNELED CENTRAL VENOUS CATHETER PLACEMENT (STD) [...] was obtained. ??Prior to beginning the procedure, [place] Protocol was used to confirm the patient's [...] was obtained. Prior to beginning the procedure, [place] Protocol was used to confirm the patient's [...] Patrica Garnica PA-C us Brett Green MD IM IR PROCEDURES Fin al Result * eGFR (09/28/2024 5:42 AM FURNITURE RENTAL CONSULTANT) eGFR >90 >=60 mL/min/1. 73 m2 Comment: [...] last reviewed 2021. Blood 09/28/2024 5:42 AM FURNITURE RENTAL CONSULTANT 09/28/2024 5:54 AM FURNITURE RENTAL CONSULTANT us Mitchell Grajeda MD LAB BLOOD ORDERABLES Final R esult [facility] [address] [place] [address] * (ABNORMAL) Renal function panel (09/28/2024 5:42 AM FURNITURE RENTAL CONSULTANT) Sodium 139 135 - 145 mmol/L Potassium, pl 4.1 3.3 - 4.9 mmol/L [facility] Chloride 99 97 - 110 mmol/L [facility] CO2 27 22 - 32 mmol/L [facility] Anion gap 13 2 - 15 mmol/L [facility] BUN 15 6 - 25 mg/dL [facility] Creatinine 0.78(L) 0.80 - 1.30 mg/dL [facility] Glucose 108 70 - 199 mg/dL [facility] Comment: Interpretive Data Fasting glucose [...] 2022. Calcium 9.1 8.5 - 10.3 mg/dL [facility] Phosphorus, pl 4.2 2.3 - 4.5 mg/dL [facility] Albumin 4.0 3.5 - 5.0 g/dL [facility] Blood 09/28/2024 5:42 AM FURNITURE RENTAL CONSULTANT 09/28/2024 5:54 AM FURNITURE RENTAL CONSULTANT Mitchell Grajeda MD LAB BLOOD ORDERABLES Final R esult [facility] [address] [place] [address] * eGFR (09/27/2024 4:57 AM FURNITURE RENTAL CONSULTANT) eGFR >90 >=60 mL/min/1. 73 m2 Comment: [...] last reviewed 2021. Blood 09/27/2024 4:57 AM FURNITURE RENTAL CONSULTANT 09/27/2024 5:20 AM FURNITURE RENTAL CONSULTANT us Mitchell Grajeda MD LAB BLOOD ORDERABLES Final R esult [facility] [address] Department [place] [address] * (ABNORMAL) Renal function panel (09/27/2024 4:57 AM FURNITURE RENTAL CONSULTANT) Sodium 143 135 - 145 mmol/L Potassium, pl 4.1 3.3 - 4.9 mmol/L [facility] Chloride 103 97 - 110 mmol/L [facility] CO2 28 22 - 32 mmol/L [facility] Anion gap 12 2 - 15 mmol/L [facility] BUN 15 6 - 25 mg/dL [facility] Creatinine 0.77(L) 0.80 - 1.30 mg/dL [facility] Glucose 91 70 - 199 mg/dL [facility] Comment: Interpretive Data Fasting glucose [...] 2022. Calcium 9.4 8.5 - 10.3 mg/dL [facility] Phosphorus, pl 4.4 2.3 - 4.5 mg/dL [facility] Albumin 3.9 3.5 - 5.0 g/dL [facility] Blood 09/27/2024 4:57 AM FURNITURE RENTAL CONSULTANT 09/27/2024 5:20 AM FURNITURE RENTAL CONSULTANT Mitchell Grajeda MD LAB BLOOD ORDERABLES Final R esult [facility] [address] Department [place] [address] * eGFR (09/26/2024 5:36 AM FURNITURE RENTAL CONSULTANT) eGFR >90 >=60 mL/min/1. 73 m2 Comment: [...] last reviewed 2021. Blood 09/26/2024 5:36 AM FURNITURE RENTAL CONSULTANT 09/26/2024 6:05 AM FURNITURE RENTAL CONSULTANT us Mitchell Grajeda MD LAB BLOOD ORDERABLES Final R esult Performing Organization Address City/[facility]/ZIP Co de Phone Number [facility] [address] [place] [place] [employer] [place] [address] * (ABNORMAL) Renal function panel (09/26/2024 5:36 AM FURNITURE RENTAL CONSULTANT) Sodium 139 135 - 145 mmol/L Potassium, pl 4.0 3.3 - 4.9 mmol/L [facility] Chloride 99 97 - 110 mmol/L [facility] CO2 28 22 - 32 mmol/L [facility] Anion gap 12 2 - 15 mmol/L [facility] BUN 14 6 - 25 mg/dL [facility] Creatinine 0.73(L) 0.80 - 1.30 mg/dL [facility] Glucose 95 70 - 199 mg/dL [facility] Comment: Interpretive Data Fasting glucose [...] 2022. Calcium 9.1 8.5 - 10.3 mg/dL [facility] Phosphorus, pl 4.3 2.3 - 4.5 mg/dL [facility] Albumin 4.0 3.5 - 5.0 g/dL [facility] Blood 09/26/2024 5:36 AM FURNITURE RENTAL CONSULTANT 09/26/2024 6:05 AM FURNITURE RENTAL CONSULTANT Mitchell Grajeda MD LAB BLOOD ORDERABLES Final R esult Performing Organization Address City/[facility]/ZIP Co de Phone Number [facility] [address] [place] [address] * eGFR (09/25/2024 5:49 AM FURNITURE RENTAL CONSULTANT) Pathologist [facility] eGFR >90 >=60 mL/min/1. 73 m2 Comment: [...] last reviewed 2021. Blood 09/25/2024 5:49 AM FURNITURE RENTAL CONSULTANT 09/25/2024 6:01 AM FURNITURE RENTAL CONSULTANT Mitchell Grajeda MD LAB BLOOD ORDERABLES Final R esult [facility] [address] Department [place] [address] * (ABNORMAL) Renal function panel (09/25/2024 5:49 AM FURNITURE RENTAL CONSULTANT) Pathologist [facility] Sodium 142 135 - 145 mmol/L Potassium, pl 3.9 3.3 - 4.9 mmol/L [facility] Chloride 103 97 - 110 mmol/L [facility] CO2 29 22 - 32 mmol/L [facility] Anion gap 10 2 - 15 mmol/L [facility] BUN 10 6 - 25 mg/dL [facility] Creatinine 0.70(L) 0.80 - 1.30 mg/dL [facility] Glucose 88 70 - 199 mg/dL [facility] Comment: Interpretive Data Fasting glucose [...] 2022. Calcium 8.8 8.5 - 10.3 mg/dL [facility] Phosphorus, pl 4.1 2.3 - 4.5 mg/dL [facility] Albumin 3.7 3.5 - 5.0 g/dL [facility] Blood 09/25/2024 5:49 AM FURNITURE RENTAL CONSULTANT 09/25/2024 6:01 AM FURNITURE RENTAL CONSULTANT us Mitchell Grajeda MD LAB BLOOD ORDERABLES Final R esult [facility] [address] Department [place] [address] * eGFR (09/24/2024 7:50 AM FURNITURE RENTAL CONSULTANT) eGFR >90 >=60 mL/min/1. 73 m2 Comment: [...] last reviewed 2021. Blood 09/24/2024 7:50 AM FURNITURE RENTAL CONSULTANT 09/24/2024 8:09 AM FURNITURE RENTAL CONSULTANT us Mitchell Grajeda MD LAB BLOOD ORDERABLES Final R esult [facility] [address] [place] [address] * (ABNORMAL) CBC without differential (09/24/2024 7:50 AM FURNITURE RENTAL CONSULTANT) WBC 11.4(H) 3.8 - 9.9 K/cumm Hgb 13.0 13.0 - 17.5 g/dL [facility] Hct 40.2 38.9 - 50.3 % [facility] Plt 280 150 - 400 K/cumm [facility] MPV 10.8 9.1 - 12.3 fL [facility] RBC 4.40 4.30 - 5.80 M/cumm [facility] MCV 91.4 81.3 - 96.4 fL [facility] MCH 29.5 27.1 - 33.3 pg [facility] MCHC 32.3 32.3 - 35.7 g/dL [facility] RDW CV 13.0 11.1 - 14.9 % [facility] RDW SD 43.6 35.7 - 48.1 fL [facility] NRBC abs 0.00 0.00 - 0.01 K/cumm [facility] Blood 09/24/2024 7:50 AM FURNITURE RENTAL CONSULTANT 09/24/2024 8:10 AM FURNITURE RENTAL CONSULTANT us Kevin Brody MD LAB BLOOD ORDERABLES Suzie brenda Result [facility] [address] Department [place] [address] * (ABNORMAL) Renal function panel (09/24/2024 7:50 AM FURNITURE RENTAL CONSULTANT) Sodium 141 135 - 145 mmol/L Potassium, pl 4.0 3.3 - 4.9 mmol/L [facility] Chloride 101 97 - 110 mmol/L [facility] CO2 28 22 - 32 mmol/L [facility] Anion gap 12 2 - 15 mmol/L [facility] BUN 13 6 - 25 mg/dL [facility] Creatinine 0.75(L) 0.80 - 1.30 mg/dL [facility] Glucose 154 70 - 199 mg/dL [facility] Comment: Interpretive Data Fasting glucose [...] 2022. Calcium 9.0 8.5 - 10.3 mg/dL [facility] Phosphorus, pl 3.7 2.3 - 4.5 mg/dL [facility] Albumin 3.9 3.5 - 5.0 g/dL [facility] Blood 09/24/2024 7:50 AM FURNITURE RENTAL CONSULTANT 09/24/2024 8:09 AM FURNITURE RENTAL CONSULTANT Mitchell Grajeda MD LAB BLOOD ORDERABLES Final R esult [facility] [address] [place] [address] * (ABNORMAL) Drugs of Abuse Screen, Urine without Confirmation (09/23/2024 6:26 PM FURNITURE RENTAL CONSULTANT) [facility] Amphetamine, [...] 2023. Barbiturates, ur Not Detected CutOff 200ng/mL [facility] Comment: Interpretive Data - Barbiturates: ??Samples containing greater than 200 ng/mL secobarbital or other cross-reacting barbiturate compounds are reported as positive. ??False positive and false negative results are possible. Confirmatory testing required for definitive results. Current Interpretive Data was last reviewed 2023. Benzodiazepines, ur Screen Positive, presumptive (A) CutOff 100ng/mL [facility] Comment: Interpretive Data - Benzodiazepines: ??Samples containing greater than 100 ng/mL nordiazepam or other cross-reacting compounds are reported as positive. False positive and false negative results are possible. Confirmatory testing required for definitive results. Current Interpretive Data was last reviewed 2023. Cannabinoids, ur Not Detected CutOff 50 ng/mL [facility] Comment: Interpretive Data - Cannabinoids: ??Samples containing greater than 50 ng/mL delta-9 THC -COOH or other cross-reacting compounds are reported as positive. ??False positive and false negative results are possible. ??Confirmatory testing required for definitive results. Current Interpretive Data was last reviewed 2023. Cocaine, ur Not Detected CutOff 150ng/mL [facility] Comment: Interpretive Data - Cocaine: ??Samples containing greater than 150 ng/mL benzoylecgonine or other cross-reacting compounds are reported as positive. False positive and false negative results are possible. Confirmatory testing required for definitive results. Current Interpretive Data was last reviewed 2023. Fentanyl, Ur Not Detected CutOff 5 ng/mL [facility] Comment: Interpretive Data - Fentanyl: ?? Samples containing greater than 5 ng/mL norfentanyl, fentanyl, or other cross-reacting fentanyl compounds are reported as positive. False positive and false negative results are possible. Confirmatory testing required for definitive results. Current Interpretive Data was last reviewed 2023. Methadone, ur Not Detected CutOff 300ng/mL [facility] Comment: Interpretive Data - Methadone: ??Samples containing greater than 300 ng/mL d,l-methadone or other cross-reacting compounds are reported as positive. ??False positive and false negative results are possible. Confirmatory testing required for definitive results. Current Interpretive Data was last reviewed 2023. Opiates, ur Not Detected CutOff 300ng/mL [facility] Comment: Interpretive Data - Opiates: ??Samples containing greater than 300 ng/mL morphine or other cross-reacting compounds are reported as positive. ??False positive and false negative results are possible. Confirmatory testing required for definitive results. Current Interpretive Data was last reviewed 2023. Oxycodone, ur Screen Positive, presumptive (A) CutOff 100ng/mL [facility] Comment: Interpretive Data - Oxycodone: ??Samples containing greater than 100 ng/mL oxycodone or other cross-reacting compounds are reported as ??positive. ??False positive and false negative results are possible. Confirmatory testing required for definitive results. Current Interpretive Data was last reviewed 2023. Phencyclidine, ur Not Detected CutOff 25 ng/mL [facility] Comment: Interpretive Data - Phencyclidine: ??Samples containing greater than 25 ng/mL phencyclidine or other cross-reacting compounds are reported as positive. ??False positive and false negative results are possible. Confirmatory testing required for definitive results. Current Interpretive Data was last reviewed 2023. Urine Creatinine 87 mg/dL [facility] Comment: Interpretive Data Urine Creatinine: < 10 mg/dL is extremely dilute = or > 10 but < 20 mg/dL is dilute = or > 20 mg/dL is normal Current Interpretive Data was last revised on 2017. Urine 09/23/2024 6:26 PM FURNITURE RENTAL CONSULTANT 09/23/2024 6:33 PM FURNITURE RENTAL CONSULTANT Narrative [facility] - 09/23/2024 7:11 PM FURNITURE RENTAL CONSULTANT Drug of Abuse screening is performed by immunoassay for medical purposes only. ??This is not to be used for Pain Management purposes. us Jovany Stubbs MD LAB URINE ORDERABLES Final Result [facility] [address] [place] [address] * eGFR (09/23/2024 6:17 AM FURNITURE RENTAL CONSULTANT) eGFR >90 >=60 mL/min/1. 73 m2 Comment: [...] last reviewed 2021. Blood 09/23/2024 6:17 AM FURNITURE RENTAL CONSULTANT 09/23/2024 6:34 AM FURNITURE RENTAL CONSULTANT us Mitchell Grajeda MD LAB BLOOD ORDERABLES Final R esult Performing Organization Address [facility] Co de Phone Number [facility] [address] [place] [address] * (ABNORMAL) CBC without differential (09/23/2024 6:17 AM FURNITURE RENTAL CONSULTANT) [facility] WBC 8.7 3.8 - 9.9 K/cumm Hgb 12.7(L) 13.0 - 17.5 g/dL [facility] Hct 39.6 38.9 - 50.3 % [facility] Plt 244 150 - 400 K/cumm [facility] MPV 10.9 9.1 - 12.3 fL [facility] RBC 4.30 4.30 - 5.80 M/cumm [facility] MCV 92.1 81.3 - 96.4 fL [facility] MCH 29.5 27.1 - 33.3 pg [facility] MCHC 32.1(L) 32.3 - 35.7 g/dL [facility] RDW CV 13.0 11.1 - 14.9 % [facility] RDW SD 43.8 35.7 - 48.1 fL [facility] NRBC abs 0.00 0.00 - 0.01 K/cumm [facility] Blood 09/23/2024 6:17 AM FURNITURE RENTAL CONSULTANT 09/23/2024 6:34 AM FURNITURE RENTAL CONSULTANT us Kevin Brody MD LAB BLOOD ORDERABLES Suzie l Result Performing Organization Address [facility] Co de Phone Number [facility] [address] [place] [address] * (ABNORMAL) Renal function panel (09/23/2024 6:17 AM FURNITURE RENTAL CONSULTANT) [facility] Sodium 141 135 - 145 mmol/L Potassium, pl 4.1 3.3 - 4.9 mmol/L [facility] Chloride 100 97 - 110 mmol/L [facility] CO2 30 22 - 32 mmol/L [facility] Anion gap 11 2 - 15 mmol/L [facility] BUN 10 6 - 25 mg/dL [facility] Creatinine 0.72(L) 0.80 - 1.30 mg/dL [facility] Glucose 95 70 - 199 mg/dL [facility] Comment: Interpretive Data Fasting glucose [...] 2022. Calcium 8.7 8.5 - 10.3 mg/dL [facility] Phosphorus, pl 3.9 2.3 - 4.5 mg/dL [facility] Albumin 3.5 3.5 - 5.0 g/dL [facility] Blood 09/23/2024 6:17 AM FURNITURE RENTAL CONSULTANT 09/23/2024 6:34 AM FURNITURE RENTAL CONSULTANT us Mitchell Grajeda MD LAB BLOOD ORDERABLES Final R esult [facility] [address] Department [place] [address] * X-ray chest 1 view (Portable) (09/22/2024 12:05 PM FURNITURE RENTAL CONSULTANT) Anatomical Region Laterality Modality Body, Chest N/A Computed Radiogr aphy 09/22/2024 12:4 0 PM FURNITURE RENTAL CONSULTANT Impressions 09/22/2024 12:40 PM FURNITURE RENTAL CONSULTANT Left upper extremity PICC tip in the mid SVC. Electronically signed by: Akil Cerda D.O. Narrative 09/22/2024 12:40 PM FURNITURE RENTAL CONSULTANT EXAMINATION: XR CHEST 1 VIEW HISTORY: check [...] IMG XR PROCEDURES Fi nal Result * OR INSJ NON-TUNNELED CENTRAL VENOUS CATH AGE 5 YR/> (09/22/2024 11:15 AM FURNITURE RENTAL CONSULTANT) Narrative Sue Steinberg PA - 09/22/2024 11:15 AM FURNITURE RENTAL CONSULTANT Sue Steinberg PA ? 09/22/2024 11:46 AM PICC Line Insertion Date/Time: 09/22/2024 11:15 AM Performed by: Sue Steinberg PA Authorized by: Sue Steinberg PA ?? [place] Protocol: RN Notified of Procedure: yes ?? Informed consent: ??Risks, benefits, alternatives discussed and patient/authorization representative/guardian agrees and accepts Patient's stated name/ [...] Final Result * eGFR (09/22/2024 8:12 AM FURNITURE RENTAL CONSULTANT) eGFR >90 >=60 mL/min/1. 73 m2 Comment: [...] last reviewed 2021. Blood 09/22/2024 8:12 AM FURNITURE RENTAL CONSULTANT 09/22/2024 8:51 AM FURNITURE RENTAL CONSULTANT us Mitchell Grajeda MD LAB BLOOD ORDERABLES Final R esult Performing Organization Address City/[facility]/ZIP Co de Phone Number [facility] [address] [place] [employer] [place] [address] * CBC without differential (09/22/2024 8:12 AM FURNITURE RENTAL CONSULTANT) WBC 8.5 3.8 - 9.9 K/cumm Hgb 13.6 13.0 - 17.5 g/dL [facility] Hct 41.9 38.9 - 50.3 % [facility] Plt 241 150 - 400 K/cumm [facility] MPV 11.4 9.1 - 12.3 fL [facility] RBC 4.59 4.30 - 5.80 M/cumm [facility] MCV 91.3 81.3 - 96.4 fL [facility] MCH 29.6 27.1 - 33.3 pg [facility] MCHC 32.5 32.3 - 35.7 g/dL [facility] RDW CV 13.0 11.1 - 14.9 % [facility] RDW SD 43.8 35.7 - 48.1 fL [facility] NRBC abs 0.00 0.00 - 0.01 K/cumm [facility] Blood 09/22/2024 8:12 AM FURNITURE RENTAL CONSULTANT 09/22/2024 8:52 AM FURNITURE RENTAL CONSULTANT us Kevin Brody MD LAB BLOOD ORDERABLES Suzei l Result Performing Organization Address City/[facility]/ZIP Co de Phone Number [facility] [address] [place] [address] * (ABNORMAL) Renal function panel (09/22/2024 8:12 AM FURNITURE RENTAL CONSULTANT) Pathologist [facility] Sodium 143 135 - 145 mmol/L Potassium, pl 3.7 3.3 - 4.9 mmol/L [facility] Chloride 100 97 - 110 mmol/L [facility] CO2 31 22 - 32 mmol/L [facility] Anion gap 12 2 - 15 mmol/L [facility] BUN 9 6 - 25 mg/dL [facility] Creatinine 0.77(L) 0.80 - 1.30 mg/dL [facility] Glucose 144 70 - 199 mg/dL [facility] Comment: Interpretive Data Fasting glucose [...] 2022. Calcium 9.3 8.5 - 10.3 mg/dL [facility] Phosphorus, pl 4.6(H) 2.3 - 4.5 mg/dL [facility] Albumin 4.1 3.5 - 5.0 g/dL [facility] Blood 09/22/2024 8:12 AM FURNITURE RENTAL CONSULTANT 09/22/2024 8:51 AM FURNITURE RENTAL CONSULTANT us Mitchell Grajeda MD LAB BLOOD ORDERABLES Final R esult [facility] [address] Department [place] [address] * eGFR (09/21/2024 6:09 AM FURNITURE RENTAL CONSULTANT) [facility] eGFR [...] last reviewed 2021. Blood 09/21/2024 6:09 AM FURNITURE RENTAL CONSULTANT 09/21/2024 7:01 AM FURNITURE RENTAL CONSULTANT us Mitchell Grajeda MD LAB BLOOD ORDERABLES Final R esult [facility] [address] [place] [address] * (ABNORMAL) CBC without differential (09/21/2024 6:09 AM FURNITURE RENTAL CONSULTANT) WBC 8.8 3.8 - 9.9 K/cumm Hgb 11.7(L) 13.0 - 17.5 g/dL [facility] Hct 36.0(L) 38.9 - 50.3 % [facility] Plt 162 150 - 400 K/cumm [facility] MPV 12.0 9.1 - 12.3 fL [facility] RBC 3.93(L) 4.30 - 5.80 M/cumm [facility] MCV 91.6 81.3 - 96.4 fL [facility] MCH 29.8 27.1 - 33.3 pg [facility] MCHC 32.5 32.3 - 35.7 g/dL [facility] RDW CV 13.0 11.1 - 14.9 % [facility] RDW SD 44.1 35.7 - 48.1 fL [facility] NRBC abs 0.00 0.00 - 0.01 K/cumm [facility] Blood 09/21/2024 6:09 AM FURNITURE RENTAL CONSULTANT 09/21/2024 7:01 AM FURNITURE RENTAL CONSULTANT us Kevin Brody MD LAB BLOOD ORDERABLES Suzie gutierrez Result [facility] [address] Department [place] [address] * (ABNORMAL) Renal function panel (09/21/2024 6:09 AM FURNITURE RENTAL CONSULTANT) Sodium 143 135 - 145 mmol/L Potassium, pl 3.5 3.3 - 4.9 mmol/L [facility] Chloride 105 97 - 110 mmol/L [facility] CO2 26 22 - 32 mmol/L [facility] Anion gap 12 2 - 15 mmol/L [facility] BUN 10 6 - 25 mg/dL [facility] Creatinine 0.70(L) 0.80 - 1.30 mg/dL [facility] Glucose 102 70 - 199 mg/dL [facility] Comment: Interpretive Data Fasting glucose [...] 2022. Calcium 8.6 8.5 - 10.3 mg/dL [facility] Phosphorus, pl 3.6 2.3 - 4.5 mg/dL [facility] Albumin 3.3(L) 3.5 - 5.0 g/dL [facility] Blood 09/21/2024 6:09 AM FURNITURE RENTAL CONSULTANT 09/21/2024 7:01 AM FURNITURE RENTAL CONSULTANT Mitchell Grajeda MD LAB BLOOD ORDERABLES Final R esult Performing Organization Address City/[facility]/ZIP Co de Phone Number [facility] [address] [place] [address] * (ABNORMAL) Vancomycin level trough Please draw trough at this specific time. (09/20/2024 5:36 PM FURNITURE RENTAL CONSULTANT) Pathologist [facility] Vancomycin trough 7.4(L) 10.0 - 20.0 mcg/mL Blood 09/20/2024 5:36 PM FURNITURE RENTAL CONSULTANT 09/20/2024 5:40 PM FURNITURE RENTAL CONSULTANT Narrative [facility] - 09/20/2024 6:00 PM FURNITURE RENTAL CONSULTANT Please draw trough at this specific time. us Mitchell Grajeda MD LAB BLOOD ORDERABLES Final R esult [facility] [address] Department [place] [address] * (ABNORMAL) CBC without differential (09/20/2024 5:58 AM FURNITURE RENTAL CONSULTANT) WBC 17.4(H) 3.8 - 9.9 K/cumm Hgb 12.8(L) 13.0 - 17.5 g/dL [facility] Hct 40.4 38.9 - 50.3 % [facility] Plt 174 150 - 400 K/cumm [facility] MPV 12.4(H) 9.1 - 12.3 fL [facility] RBC 4.37 4.30 - 5.80 M/cumm [facility] MCV 92.4 81.3 - 96.4 fL [facility] MCH 29.3 27.1 - 33.3 pg [facility] MCHC 31.7(L) 32.3 - 35.7 g/dL [facility] RDW CV 12.9 11.1 - 14.9 % [facility] RDW SD 44.1 35.7 - 48.1 fL [facility] NRBC abs 0.00 0.00 - 0.01 K/cumm [facility] Blood 09/20/2024 5:58 AM FURNITURE RENTAL CONSULTANT 09/20/2024 6:35 AM FURNITURE RENTAL CONSULTANT Kevin Brody MD LAB BLOOD ORDERABLES Suzie l Result [facility] [address] [place] [address] * (ABNORMAL) Tissue aerobic and anaerobic culture and gram stain Tissue Back, lower (09/19/2024 11:08AM FURNITURE RENTAL CONSULTANT) Direct Specimen Exam Stain: No polymorphonuclear leukocytes seen. No organisms seen. Report Final Report: Very light growth Staphylococcus aureus, methicillin susceptible (.) [facility] Organism STAPHYLOCOCCUS AUREUS, METHICILLIN SUSCEPTIBLE [facility] Tissue (Back, lower) 09/19/2024 11:08 AM FURNITURE RENTAL CONSULTANT 09/19/2024 12:11 PM FURNITURE RENTAL CONSULTANT Narrative [facility] - 09/22/2024 9:51 AM FURNITURE RENTAL CONSULTANT Deep Tissue Organism Antibiotic Method Susceptibility Staphylococcus [...] MICROBIOLOGY - GENERA L ORDERABLES Final Result [facility] [address] [place] [address] * Mycology (fungal) culture Tissue Back, lower (09/19/2024 11:08 AM FURNITURE RENTAL CONSULTANT) Report Final Report: No fungus isolated Tissue (Back, lower) 09/19/2024 11:08 AM FURNITURE RENTAL CONSULTANT 09/19/2024 12:11 PM FURNITURE RENTAL CONSULTANT Narrative [facility] - 10/17/2024 1:00 PM FURNITURE RENTAL CONSULTANT Deep Tissue Mycology cultures are held for 4 weeks. us Kevin Brody MD LAB MICROBIOLOGY - GENERA L ORDERABLES Final Result Performing Organization Address City/[facility] Co de Phone Number [facility] [address] [facility] [place] [address] * Mycology (fungal) culture Abscess Back, lower (09/19/2024 11:07 AM FURNITURE RENTAL CONSULTANT) Report Final Report: No fungus isolated Abscess (Back, lower) 09/19/2024 11:07 AM FURNITURE RENTAL CONSULTANT 09/19/2024 12:25 PM FURNITURE RENTAL CONSULTANT Narrative [facility] 10/17/2024 1:00 PM FURNITURE RENTAL CONSULTANT Deep Mycology cultures are held for 4 weeks. us Kevin Brody MD LAB MICROBIOLOGY - GENERA L ORDERABLES Final Result Performing Organization Address [facility] Co de Phone Number [facility] [address] [facility] [place] [address] * Mycology (fungal) culture Abscess Back, lower (09/19/2024 11:07 AM FURNITURE RENTAL CONSULTANT) Report Final Report: No fungus isolated Abscess (Back, lower) 09/19/2024 11:07 AM FURNITURE RENTAL CONSULTANT 09/19/2024 12:25 PM FURNITURE RENTAL CONSULTANT Narrative [facility] - 10/17/2024 1:00 PM FURNITURE RENTAL CONSULTANT Superficial Mycology cultures are held for 4 weeks. us Kevin Brody MD LAB MICROBIOLOGY - GENERA L ORDERABLES Final Result Performing Organization Address City/[facility]/ZIP Co de Phone Number [facility] [address] Department [place] [address] * (ABNORMAL) Aerobic and anaerobic culture and gram stain Abscess Back, lower (09/19/2024 11:07 AM FURNITURE RENTAL CONSULTANT) Direct Specimen Exam Stain: No polymorphonuclear leukocytes seen. No organisms seen. Report Final Report: Light growth of: Staphylococcus aureus, methicillin susceptible Susceptibility reported on this organism on previous culture [id number] (.) [facility] Organism STAPHYLOCOCCUS AUREUS, METHICILLIN SUSCEPTIBLE [facility] Abscess (Back, lower) 09/19/2024 11:07 AM FURNITURE RENTAL CONSULTANT 09/19/2024 12:25 PM FURNITURE RENTAL CONSULTANT Narrative [facility] - 09/23/2024 8:55 AM FURNITURE RENTAL CONSULTANT Deep Kevin Brody MD LAB MICROBIOLOGY - GENERA L ORDERABLES Final Result [facility] [address] Department [place] [address] * (ABNORMAL) Aerobic and anaerobic culture and gram stain Abscess Back, lower (09/19/2024 11:07 AM FURNITURE RENTAL CONSULTANT) Direct Specimen Exam Stain: Few polymorphonuclear leukocytes seen. Rare Gram Positive Cocci Report Final Report: Moderate growth of: Staphylococcus aureus, methicillin susceptible (.) [facility] Organism STAPHYLOCOCCUS AUREUS, METHICILLIN SUSCEPTIBLE [facility] Abscess (Back, lower) 09/19/2024 11:07 AM FURNITURE RENTAL CONSULTANT 09/19/2024 12:25 PM FURNITURE RENTAL CONSULTANT Narrative [facility] - 09/23/2024 8:49 AM FURNITURE RENTAL CONSULTANT Superficial Organism Antibiotic Method Susceptibility Staphylococcus aureus, [...] MICROBIOLOGY - GENERA L ORDERABLES Final Result [facility] [address] Department [place] [address] * OR AN ELECTIVE ENDOTRACHEAL AIRWAY, OR AN PROCEDURE PLACEHOLDER (09/19/2024 10:49 AM FURNITURE RENTAL CONSULTANT) Narrative Sonia David CRNA - 09/19/2024 10:49 AM FURNITURE RENTAL CONSULTANT Sonia David CRNA ? 09/19/2024 10:50 AM Airway Patient location: OR Urgency: elective Indications for airway management: anesthesia Difficult airway: no Staff: Placed by: CHIEF MECHANICAL ENGINEER: Sonia David CRNA Emergent airway documentation: Risks [...] * (ABNORMAL) Differential, auto (09/19/2024 1:19 AM FURNITURE RENTAL CONSULTANT) Neutrophil abs 13.1(H) 1.5 - 6.5 K/cumm Imm gran abs 0.1 0.0 - 0.1 K/cumm [facility] Lymphocyte abs 1.3 0.8 - 3.3 K/cumm [facility] Monocyte abs 1.3(H) 0.2 - 0.8 K/cumm [facility] Eosinophil abs 0.0 0.0 - 0.5 K/cumm [facility] Basophil abs 0.0 0.0 - 0.1 K/cumm [facility] Neutrophil pct 83.0 % [facility] Comment: Interpretive Data Percent cell count reference ranges are not reported, since discordance with absolute values may lead to misinterpretation of CBC data. Current Interpretive Data was last revised on 2018. Imm gran pct 0.5 % [facility] Comment: Interpretive Data Percent cell count reference ranges are not reported, since discordance with absolute values may lead to misinterpretation of CBC data. Current Interpretive Data was last revised on 2018. Lymphocyte pct 8.0 % [facility] Comment: Interpretive Data Percent cell count reference ranges are not reported, since discordance with absolute values may lead to misinterpretation of CBC data. Current Interpretive Data was last revised on 2018. Monocyte pct 8.3 % [facility] Comment: Interpretive Data Percent cell count reference ranges are not reported, since discordance with absolute values may lead to misinterpretation of CBC data. Current Interpretive Data was last revised on 2018. Eosinophil pct 0.1 % [facility] Comment: Interpretive Data Percent cell count reference ranges are not reported, since discordance with absolute values may lead to misinterpretation of CBC data. Current Interpretive Data was last revised on 2018. Basophil pct 0.1 % [facility] Comment: Interpretive Data Percent cell count reference ranges are not reported, since discordance with absolute values may lead to misinterpretation of CBC data. Current Interpretive Data was last revised on 2018. Blood 09/19/2024 1:19 AM FURNITURE RENTAL CONSULTANT 09/19/2024 1:19 AM FURNITURE RENTAL CONSULTANT us Kita Astudillo MD LAB BLOOD ORDERABLES Final Resu lt [facility] [address] [place] [address] * (ABNORMAL) CBC with auto differential (09/19/2024 1:19 AM FURNITURE RENTAL CONSULTANT) WBC 15.8(H) 3.8 - 9.9 K/cumm Hgb 13.0 13.0 - 17.5 g/dL [facility] Hct 39.4 38.9 - 50.3 % [facility] Plt 150 150 - 400 K/cumm [facility] MPV 12.1 9.1 - 12.3 fL [facility] RBC 4.38 4.30 - 5.80 M/cumm [facility] MCV 90.0 81.3 - 96.4 fL [facility] MCH 29.7 27.1 - 33.3 pg [facility] MCHC 33.0 32.3 - 35.7 g/dL [facility] RDW CV 12.7 11.1 - 14.9 % [facility] RDW SD 42.4 35.7 - 48.1 fL [facility] NRBC abs 0.00 0.00 - 0.01 K/cumm [facility] Blood 09/19/2024 1:19 AM FURNITURE RENTAL CONSULTANT 09/19/2024 1:19 AM FURNITURE RENTAL CONSULTANT us Kita Astudillo MD LAB BLOOD ORDERABLES Final Resu lt [facility] [address] [place] [address] * eGFR (09/19/2024 12:55 AM FURNITURE RENTAL CONSULTANT) eGFR >90 >=60 mL/min/1. 73 m2 Comment: [...] reviewed 2021. Blood 09/19/2024 12:5 5 AM FURNITURE RENTAL CONSULTANT 09/19/2024 1:19 AM FURNITURE RENTAL CONSULTANT Kita Astudillo MD LAB BLOOD ORDERABLES Final Resu lt Performing Organization Address City/[facility]/ZIP Co de Phone Number [facility] [address] [place] [address] * Blood culture Blood (09/19/2024 12:55 AM FURNITURE RENTAL CONSULTANT) Report Final Report: No growth Blood 09/19/2024 12:5 5 AM FURNITURE RENTAL CONSULTANT 09/19/2024 2:14 AM FURNITURE RENTAL CONSULTANT Narrative [facility] - 09/24/2024 7:01 AM FURNITURE RENTAL CONSULTANT From a different site than #1. Collection->Peripheral [...] organism identification may be performed using the Prezto Blood Culture Identification panel. This assay detects microbial DNA in a blood culture broth. This assay has been cleared by the [place] Food and Drug Administration and its performance characteristics have been verified by the [facility]. Interpretive data was last revised on October 27, 2022. Kita Astudillo MD LAB MICROBIOLOGY - GENERAL [facility] Final Result Performing Organization Address City/[facility]/ZIP Co de Phone Number [facility] [address] Department [place] [address] * Blood culture Blood (09/19/2024 12:55 AM FURNITURE RENTAL CONSULTANT) [facility] Report Final Report: No growth Blood 09/19/2024 12:5 5 AM FURNITURE RENTAL CONSULTANT 09/19/2024 2:14 AM FURNITURE RENTAL CONSULTANT Narrative [facility] - 09/24/2024 7:01 AM FURNITURE RENTAL CONSULTANT Collection->Peripheral Interpretive Data 1. Blood cultures are incubated and monitored continuously for 5 days (120 hours). The first negative report is issued within 24 hours of receipt in the laboratory. 2. All positive cultures are resulted and called to physicians/care providers as soon as they are detected. 3. A rapid molecular test for organism identification may be performed using the Prezto Blood Culture Identification panel. This assay detects microbial DNA in a blood culture broth. This assay has been cleared by the [place] Food and Drug Administration and its performance characteristics have been verified by the [facility]. Interpretive data was last revised on October 27, 2022. Kita Astudillo MD LAB MICROBIOLOGY - GENERAL [facility] Final Result [facility] [address] [facility] [place] [address] * (ABNORMAL) Comprehensive metabolic panel (09/19/2024 12:55 AM FURNITURE RENTAL CONSULTANT) Pathologist [facility] Sodium 136 135 - 145 mmol/L Potassium, pl 4.1 3.3 - 4.9 mmol/L [facility] Comment:Hemolyzed; potassium value may be falsely elevated by as much as 0.3 - 0.5 mmol/L. Suggest redraw and reanalysis Chloride 98 97 - 110 mmol/L [facility] CO2 26 22 - 32 mmol/L [facility] Anion gap 12 2 - 15 mmol/L [facility] BUN 8 6 - 25 mg/dL [facility] Creatinine 0.70(L) 0.80 - 1.30 mg/dL [facility] Glucose 139 70 - 199 mg/dL [facility] Comment: Interpretive Data Fasting glucose [...] 2022. Calcium 9.1 8.5 - 10.3 mg/dL [facility] Bilirubin, total 0.9 0.1 - 1.2 mg/dL [facility] Protein, pl 6.7 6.5 - 8.5 g/dL [facility] Albumin 3.7 3.5 - 5.0 g/dL [facility] Alk phos 92 40 - 130 Units/L [facility] ALT 18 7 - 55 Units/L [facility] AST 22 10 - 50 Units/L [facility] Comment:Slightly Hemolyzed S pecimen Blood 09/19/2024 12:5 5 AM FURNITURE RENTAL CONSULTANT 09/19/2024 1:19 AM FURNITURE RENTAL CONSULTANT Kita Astudillo MD LAB BLOOD ORDERABLES Final Resu lt [facility] [address] Department [place] [address] * (ABNORMAL) CBC without differential (08/14/2024 7:13 AM FURNITURE RENTAL CONSULTANT) WBC 16.5(H) 3.8 - 9.9 K/cumm Hgb 14.5 13.0 - 17.5 g/dL [facility] Hct 43.7 38.9 - 50.3 % [facility] Plt 169 150 - 400 K/cumm [facility] MPV 12.0 9.1 - 12.3 fL [facility] RBC 4.87 4.30 - 5.80 M/cumm [facility] MCV 89.7 81.3 - 96.4 fL [facility] MCH 29.8 27.1 - 33.3 pg [facility] MCHC 33.2 32.3 - 35.7 g/dL [facility] RDW CV 13.3 11.1 - 14.9 % [facility] RDW SD 44.0 35.7 - 48.1 fL [facility] NRBC abs 0.00 0.00 - 0.01 K/cumm [facility] Blood 08/14/2024 7:13 AM FURNITURE RENTAL CONSULTANT 08/14/2024 7:51 AM FURNITURE RENTAL CONSULTANT us Kevin Brody MD LAB BLOOD ORDERABLES Suzie gutierrez Result [facility] [address] Department [place] [address] * Surgical pathology (08/13/2024 11:16 AM FURNITURE RENTAL CONSULTANT) Disc, intervertebral 024 11:16 AM FURNITURE RENTAL CONSULTANT 08/13/2024 1:53 PM FURNITURE RENTAL CONSULTANT Narrative 08/14/2024 2:09 PM FURNITURE RENTAL CONSULTANT [address] ??[address] Tele: ?? Batsheva Ji MD - Bobbin Fixer Note to Patients: This report may contain [...] the details. SURGICAL PATHOLOGY REPORT Patient Name: ??MICHELE TRAMAINENahomy Charles JR. Address: ??[address] [place] [address] ??[id number] Gender: ??M : ??1970 (Age: 53) Service: ??Ortho Location: ??[id number], ?? Hospital #: ??[id number] Patient Type: ??MBC OP IN BED Accession #: ? [id number] Taken: ? 08/13/2024 Received ? 08/13/2024 Reported: [...] x 3.5 x 0.6 cm in aggregate Residential Assistant sections are submitted in cassette labeled A1. ?? [facility] MICROSCOPIC DESCRIPTION: Microscopic examination supports the above captioned diagnosis. This case was signed out at [facility], [address] [place] [id number]. Clerical Data Follows A; [id number] REPORT IMAGES AND/OR SCANNED DOCUMENTS ONLY VIEWABLE IN PDF FORMAT The immunohistochemical test(s) cited in this report, if any, was developed and its performance characteristics determined by [facility]. ??It has not been cleared or approved by the U.S. Food and Drug Administration. ??The FDA has determined that such clearance or approval is not necessary. ??This test is used for clinical purposes. ??It should not be regarded as investigational or for research. ??[facility] is certified under the Clinical [...] part or completely in the following laboratories: [facility], [facility] [address], [place] [address] [facility], [facility], [address], [place] [address]. Kevin Brody MD LAB PATHOLOGY ORDERABLES Final Result * FL Fluoroscopy < 1 Hour (08/13/2024 11:08 AM FURNITURE RENTAL CONSULTANT) Narrative [facility] - 08/13/2024 11:09 AM FURNITURE RENTAL CONSULTANT The images from this study are not interpreted by Radiology. ??Please refer to the physician's procedure / OR operative note. Kevin Brody MD IMG FLUOROSCOPY PROCEDURE S Final Result Performing Organization Address City/State/[facility] Co de Phone Number [email or web address] * XR Spine Lumbar 2 or 3 Views (08/13/2024 11:08 AM FURNITURE RENTAL CONSULTANT) Anatomical Region Laterality Modality Spine N/A Computed Radiogr aphy 08/13/2024 11:3 5 AM FURNITURE RENTAL CONSULTANT Impressions 08/13/2024 11:35 AM FURNITURE RENTAL CONSULTANT FINDINGS/IMPRESSION: 6 intraoperative fluoroscopic images are submitted for review. Fusion L4-L5 vertebral bodies. Postoperative changes of L3-L5 posterior fusion and decompression with L3-L4 interbody fusion device placement. Hardware is grossly intact. Please refer to the dedicated operative report for complete evaluation of real-time findings. Electronically signed by: Justus Toledo M.D. Narrative 08/13/2024 11:35 AM FURNITURE RENTAL CONSULTANT EXAM: XR SPINE LUMBAR 2 OR 3 VIEWS INDICATION: L3-5 Decompressive Laminectomy, Posterior Lumbar Interbody Fusion using Zavation EZ Span Cage, Mathew Screws, Local Autograph and L4-5 Repeat Discectomy COMPARISON: MRI 03/03/2024 Procedure Note Justus Toledo MD - 11/19/2024 EXAM: XR SPINE LUMBAR 2 OR 3 [...] IMG XR PROCEDURES Final R esult * OR AN ELECTIVE ENDOTRACHEAL AIRWAY, OR AN PROCEDURE PLACEHOLDER (08/13/2024 7:59 AM FURNITURE RENTAL CONSULTANT) Narrative Naomi Galvan CRNA - 08/13/2024 7:59 AM FURNITURE RENTAL CONSULTANT Naomi Galvan CRNA ? 08/13/2024 ??8:01 AM Airway Patient location: OR Urgency: elective Indications for airway management: anesthesia Difficult airway: no Staff: Supervising provider: Jason Christianson MD Placed by: CHIEF MECHANICAL ENGINEER: Naomi Galvan CRNA Emergent airway documentation: Risks [...] Result * Check Sample (08/13/2024 6:59 AM FURNITURE RENTAL CONSULTANT) ABO Rh O Positive MBC HCLL OTHER 08/13/2024 6:59 AM FURNITURE RENTAL CONSULTANT 08/13/2024 7:23 AM FURNITURE RENTAL CONSULTANT Ara Robbins NP LAB BLOOD ORDERABLES Fi nal Result [facility] [address] [place] [address] MBC * POCT lipid panel (07/30/2024 10:33 AM FURNITURE RENTAL CONSULTANT) Cholesterol, POC 186 mg/dL HDL, POC 28 mg/dL Triglycerides, POC 215 mg/dL LDL Cholesterol POC 115 mg/dL Chol/HDL Ratio, POC 6.7 Non-HDL Cholesterol, POC 158 mg/dL Cholesterol Total, POC 186 mg/dL Capillary blood 07/30/2024 1 0:33 AM FURNITURE RENTAL CONSULTANT Hunter Smith MD POINT OF CARE TEST ORDERABLES Fi nal Result * ECG 12 lead (07/30/2024 10:22 AM FURNITURE RENTAL CONSULTANT) Hunter Smith MD ECG ORDERABLES Edited Result - Final from Last 3 Months Insurance [facility] HMO/PPO Address: [facility] [id number] [place] [id number] [place] Advance Directives For more information, please contact: [phone] * Full Code (Latest Code Status on File) Date Activated Date Inactivated Comments 09/19/2024 12:47 PM 10/05/2024 3:11 PM * Full Code Date Activated Date Inactivated Comments 09/18/2024 8:09 PM 09/19/2024 12:47 PM * Full Code Date Activated Date Inactivated Comments 08/13/2024 2:58 PM 08/14/2024 4:58 PM Care Teams Cloth Tester Quality Relationship Specialty Start Date End Date Elton De La Fuente MD PCP - General Family Medicine 06/02/21
--- OUTSIDE RECORDS SUMMARY | 2024-10-30 07:15 | XMS_ITS | Clinical Summary ---
Author Organization [facility] [place] Address [address] [place] [address] Care Team Providers Care Licensed Weigher Name Role Phone Elton De La Fuente MD Primary Care Provider [phone] Allergies Active Allergy Reactions Criticality Noted Date Comments Pseudoephedrine Other (See comments) [facility] methocarbamoL (ROBAXIN) 750 mg tablet Take [...] Department Care Team Description 10/17/2024 8:34 AM CLIENT CARE SPECIALIST - 10/17/2024 11:59 PM CLIENT CARE SPECIALIST Hospital Encounter [facility] - Interventional Radiology [address] [place] [address] [phone] Infection following a procedure, other surgical site, subsequent encounter Discharge Disposition: Discharge to home or self care 09/19/2024 10:31 AM CLIENT CARE SPECIALIST Anesthesia Event [facility] Operating Room [address] [place] [phone] Stephenie Rodriguez DO Tynes, Jessika Olegovna, CRNA 09/19/2024 10:03 AM CLIENT CARE SPECIALIST - 09/19/2024 12:08 PM CLIENT CARE SPECIALIST Surgery [facility] Operating Room [address] [place] [address] [phone] Kevin Brody MD INCISION AND DRAINAGE - LUMBAR 09/18/2024 7:53 PM CLIENT CARE SPECIALIST - 10/05/2024 11:00 AM CLIENT CARE SPECIALIST Hospital Encounter [facility] [address] [place] [address] [phone] Kita Astudillo MD Willis, Devin Ray, MD Sufi, Jovany Aslam, MD Juan, Donnie A., Claudio Nair MD Hammes, Amanda Jane, MD Teckchandani, Renu, MD Wound infection (Primary Dx); Cellulitis of other specified site; Cellulitis, unspecified cellulitis site [L03.90]; Lumbar stenosis with neurogenic claudication [M48.062] Discharge Disposition: Discharge to home or self care 09/18/2024 Orders Only [address] [phone] Kita Astudillo MD 09/17/2024 Patient Self-Triage [facility]/ Phys[facility] [address] [place] [address] Mychart, Generic Provider 08/13/2024 7:30 AM CLIENT CARE SPECIALIST - 08/13/2024 12:30 PM CLIENT CARE SPECIALIST Surgery [facility] Operating Room [address] [place] [phone] Kevin Brody MD L3-5 Decompressive Laminectomy, Posterior Lumbar Interbody Fusion using Zavation EZ Span Cage, Mathew Screws, Local Autograph and L4-5 Repeat Discectomy 08/13/2024 7:26 AM CLIENT CARE SPECIALIST Anesthesia Event [facility] Operating Room [address] [place] [phone] Jason Christianson MD Salameh, Besan Mohammed, PA 08/13/2024 5:41 AM CLIENT CARE SPECIALIST - 08/14/2024 12:58 PM CLIENT CARE SPECIALIST Hospital Encounter [address] [phone] Kevin Brody MD Pseudoclaudication syndrome Discharge Disposition: Discharge to home or self care 08/13/2024 Orders Only [facility] Operating Room [address] [place] [phone] Kevin Brody MD 07/30/2024 10:15 AM CLIENT CARE SPECIALIST Office Visit [facility] Medical Group Cardiology [address] [place] [phone] Hunter Smith MD Preop cardiovascular exam (Primary Dx); Tobacco abuse; Lipid screening from Last 3 Months Immunizations Name Administration [...] 0.6 oz pur e alcohol) Recovering alcoholic-whiskey [facility] Utilities Answer Date Recorded In the past 12 months has [place], gas, oil, or water 4Less threatened to shut off services in your [...] week 09/19/2024 How often do you attend [facility] or anglic[facility] services? 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 file Not on file Not on file Obstetrics History Last Filed Vital Signs Vital Sign Reading Time Taken Comments Blood Pressure 173/100 10/17/2024 9:20 AM CLIENT CARE SPECIALIST Pulse 69 10/17/2024 9:20 AM CLIENT CARE SPECIALIST Temperature 37.3 ??C (99.1 ??F) 10/17/2024 8:45 AM CS T Respiratory Rate 16 10/17/2024 9:20 AM CLIENT CARE SPECIALIST Oxygen Saturation 95% 10/17/2024 9:20 AM CLIENT CARE SPECIALIST Inhaled Oxygen Concentration - - Weight 87.1 kg (192 lb) 10/17/2024 8:45 AM CLIENT CARE SPECIALIST Height 182.9 cm (6') 10/17/2024 8:45 AM CLIENT CARE SPECIALIST Body Mass Index 26.04 10/17/2024 8:45 AM CLIENT CARE SPECIALIST Plan of Treatment Health Maintenance Due Date [...] Completed 09/21/2024 Medical Devices Implanted Type Area Recreation Program Coordinator Device Identifier Shelf Expiration Date Model / Serial / Lot Biocomposites Stimulan Rapid Cure Kit Paste Telegraph Office Route Aide 5cc 12.5cc Bone Void 620-005 - [id number] Implanted:Qty: 1 on 08/13/2024 by Kevin Brody MD at [facility] N/A: Spine Lumbar Biocomposites [id number] 04/24/2027 620-005 / / [id number] [employer] Cage Spinal Lumbar 10 Degree Tlif Expandable 7-11.5mm Titanium [id number] - [id number] Implanted:Qty: 2 on 08/13/2024 by Kevin Brody MD at [facility] N/A: Spine Lumbar [employer] [id number] / / Amina Spine 4.5mm 35mm Polyaxial Spine Screw Bone Deformity [id number] - [id number] Implanted:Qty: 6 on 08/13/2024 by Kevin Brody MD at [facility] N/A: Spine Lumbar Ellsworth Spine [id number] 5 / / Amina Spine 4.5mm 75mm Contour Ulises Spinal Cocr [id number] - [id number] Implanted:Qty: 2 on 08/13/2024 by Kevin Brody MD at [facility] N/A: Spine Lumbar Amina Spine [id number] 5 / / Ellsworth Spine 26mm Semiadjustable Transverse Spine Connector Ulises Posterior [id number] - [id number] Implanted:Qty: 1 on 08/13/2024 by Kevin Brody MD at [facility] N/A: Spine Lumbar Amina Spine [id number] 6A / / Ellsworth Spine 32mm Semiadjustable Transverse Spine Connector Ulises Posterior [id number] - [id number] Implanted:Qty: 1 on 08/13/2024 by Kevin Brody MD at [facility] N/A: Spine Lumbar Amina Spine [id number] 2A / / Procedures Procedure Name Priority Date/Time Associated Diagnosis Comments IR PICC LINE PLACEMENT > 5 YEARS Schedule Routine, Read Routine (OP Routine) 10/17/2024 9:26 AM CLIENT CARE SPECIALIST Infection following a procedure, other surgical site, subsequent encounter EGFR Routine 09/28/2024 5:42 AM CLIENT CARE SPECIALIST RENAL FUNCTION PANEL Routine 09/28/2024 5:42 AM CLIENT CARE SPECIALIST EGFR Routine 09/27/2024 4:57 AM CLIENT CARE SPECIALIST RENAL FUNCTION PANEL Routine 09/27/2024 4:57 AM CLIENT CARE SPECIALIST EGFR Routine 09/26/2024 5:36 AM CLIENT CARE SPECIALIST RENAL FUNCTION PANEL Routine 09/26/2024 5:36 AM CLIENT CARE SPECIALIST EGFR Routine 09/25/2024 5:49 AM CLIENT CARE SPECIALIST RENAL FUNCTION PANEL Routine 09/25/2024 5:49 AM CLIENT CARE SPECIALIST EGFR Routine 09/24/2024 7:50 AM CLIENT CARE SPECIALIST RENAL FUNCTION PANEL Routine 09/24/2024 7:50 AM CLIENT CARE SPECIALIST CBC WITHOUT DIFFERENTIAL Routine 09/24/2024 7:50 AM CLIENT CARE SPECIALIST DRUGS OF ABUSE SCREEN, URINE WITHOUT CONFIRMATION Routine 09/23/2024 6:26 PM CLIENT CARE SPECIALIST EGFR Routine 09/23/2024 6:17 AM CLIENT CARE SPECIALIST RENAL FUNCTION PANEL Routine 09/23/2024 6:17 AM CLIENT CARE SPECIALIST CBC WITHOUT DIFFERENTIAL Routine 09/23/2024 6:17 AM CLIENT CARE SPECIALIST XR CHEST 1 VIEW ED Urgent/IP Urgent 09/22/2024 12:05 PM CLIENT CARE SPECIALIST RI INSJ NON-TUNNELED CENTRAL VENOUS CATH AGE 5 YR/> Routine 09/22/2024 11:15 AM CLIENT CARE SPECIALIST Wound infection EGFR Routine 09/22/2024 8:12 AM CLIENT CARE SPECIALIST RENAL FUNCTION PANEL Routine 09/22/2024 8:12 AM CLIENT CARE SPECIALIST CBC WITHOUT DIFFERENTIAL Routine 09/22/2024 8:12 AM CLIENT CARE SPECIALIST EGFR Routine 09/21/2024 6:09 AM CLIENT CARE SPECIALIST RENAL FUNCTION PANEL Routine 09/21/2024 6:09 AM CLIENT CARE SPECIALIST CBC WITHOUT DIFFERENTIAL Routine 09/21/2024 6:09 AM CLIENT CARE SPECIALIST VANCOMYCIN LEVEL TROUGH Timed 09/20/2024 5:36 PM CLIENT CARE SPECIALIST CBC WITHOUT DIFFERENTIAL Routine 09/20/2024 5:58 AM CLIENT CARE SPECIALIST MYCOLOGY (FUNGAL) CULTURE Routine 09/19/2024 11:08 AM CLIENT CARE SPECIALIST TISSUE AEROBIC AND ANAEROBIC CULTURE AND GRAM STAIN Routine 09/19/2024 11:08 AM CLIENT CARE SPECIALIST MYCOLOGY (FUNGAL) CULTURE Routine 09/19/2024 11:07 AM CLIENT CARE SPECIALIST AEROBIC AND ANAEROBIC CULTURE AND GRAM STAIN Routine 09/19/2024 11:07 AM CLIENT CARE SPECIALIST MYCOLOGY (FUNGAL) CULTURE Routine 09/19/2024 11:07 AM CLIENT CARE SPECIALIST AEROBIC AND ANAEROBIC CULTURE AND GRAM STAIN Routine 09/19/2024 11:07 AM CLIENT CARE SPECIALIST RI AN PROCEDURE PLACEHOLDER Routine 09/19/2024 10:49 AM CLIENT CARE SPECIALIST RI AN ELECTIVE ENDOTRACHEAL AIRWAY Routine 09/19/2024 10:49 AM CLIENT CARE SPECIALIST INCISION AND DRAINAGE - BACK 09/19/2024 10:30 AM CLIENT CARE SPECIALIST LUMBAR WOUND INFECTION DIFFERENTIAL AUTO Routine 09/19/2024 1:1 9 AM CLIENT CARE SPECIALIST CBC WITH AUTO DIFFERENTIAL Routine 09/19/2024 1:19 AM CLIENT CARE SPECIALIST EGFR Routine 09/19/2024 12:55 AM CLIENT CARE SPECIALIST COMPREHENSIVE METABOLIC PANEL Routine 09/19/2024 12:55 AM CLIENT CARE SPECIALIST BLOOD CULTURE Routine 09/19/2024 12:55 AM CLIENT CARE SPECIALIST BLOOD CULTURE Routine 09/19/2024 12:55 AM CLIENT CARE SPECIALIST CBC WITHOUT DIFFERENTIAL Routine 08/14/2024 7:13 AM CLIENT CARE SPECIALIST SURGICAL PATHOLOGY Routine 08/13/2024 11:16 AM CLIENT CARE SPECIALIST FL FLUOROSCOPY < 1 HOUR IP Routine 08/13/2024 11:08 AM CLIENT CARE SPECIALIST XR SPINE LUMBAR 2 OR 3 VIEWS IP Routine 08/13/2024 11:08 AM CLIENT CARE SPECIALIST RI AN PROCEDURE PLACEHOLDER Routine 08/13/2024 7:59 AM CLIENT CARE SPECIALIST RI AN ELECTIVE ENDOTRACHEAL AIRWAY Routine 08/13/2024 7:59 AM CLIENT CARE SPECIALIST FUSION LUMBAR - POSTERIOR 2 LEVELS 08/13/2024 7:30 AM CLIENT CARE SPECIALIST Pseudoclaudication syndrome B CHECK SAMPLE STAT 08/13/2024 6:59 AM CLIENT CARE SPECIALIST POCT LIPID PANEL Routine 07/30/2024 10:33 AM CLIENT CARE SPECIALIST Lipid screening ECG 12-LEAD Routine 07/30/2024 10:22 AM CLIENT CARE SPECIALIST Preop cardiovascular exam from Last 3 Months Results * IR PICC Line Placement Over 5 Years of Age (10/17/2024 9:26 AM CLIENT CARE SPECIALIST) Anatomical Region Laterality Modality Body N/A X-Ray Angiograph y 10/17/2024 10:2 5 AM CLIENT CARE SPECIALIST Impressions 10/17/2024 10:25 AM CLIENT CARE SPECIALIST Successful nontunneled catheter placement. PLAN: The catheter is ready for immediate use. ??When treatment is completed, this catheter can be removed at the bedside according to standard hospital protocol. ?? Electronically signed by: Patrica Garnica PA-C Narrative 10/17/2024 10:25 AM CLIENT CARE SPECIALIST EXAMINATION: ??NONTUNNELED CENTRAL VENOUS CATHETER PLACEMENT (STD) [...] was obtained. ??Prior to beginning the procedure, Sanford Protocol was used to confirm the patient's [...] was obtained. Prior to beginning the procedure, Sanford Protocol was used to confirm the patient's [...] al Result * eGFR (09/28/2024 5:42 AM CLIENT CARE SPECIALIST) eGFR >90 >=60 mL/min/1. 73 m2 Comment: [...] last reviewed 2021. Blood 09/28/2024 5:42 AM CLIENT CARE SPECIALIST 09/28/2024 5:54 AM CLIENT CARE SPECIALIST Mitchell Grajeda MD LAB BLOOD ORDERABLES Final R esult Performing Organization Address City/[facility]/ZIP Co de Phone Number [facility] [address] [place] [employer] [address] * (ABNORMAL) Renal function panel (09/28/2024 5:42 AM CLIENT CARE SPECIALIST) [facility] Sodium 139 135 - 145 mmol/L Potassium, pl 4.1 3.3 - 4.9 mmol/L [facility] Chloride 99 97 - 110 mmol/L [facility] CO2 27 22 - 32 mmol/L [facility] Anion gap 13 2 - 15 mmol/L [facility] BUN 15 6 - 25 mg/dL [facility] Creatinine 0.78(L) 0.80 - 1.30 mg/dL [facility] Glucose 108 70 - 199 mg/dL [facility] Comment: Interpretive Data Fasting glucose [...] Calcium 9.1 8.5 - 10.3 mg/dL [facility] Phosphorus, pl 4.2 2.3 - 4.5 mg/dL [facility] Albumin 4.0 3.5 - 5.0 g/dL [facility] Blood 09/28/2024 5:42 AM CLIENT CARE SPECIALIST 09/28/2024 5:54 AM CLIENT CARE SPECIALIST us Mitchell Grajeda MD LAB BLOOD ORDERABLES Final R esult Performing Organization Address City/[facility]/ZIP Co de Phone Number [facility] [address] Department [place] [address] * eGFR (09/27/2024 4:57 AM CLIENT CARE SPECIALIST) eGFR >90 >=60 mL/min/1. 73 m2 Comment: [...] last reviewed 2021. Blood 09/27/2024 4:57 AM CLIENT CARE SPECIALIST 09/27/2024 5:20 AM CLIENT CARE SPECIALIST us Mitchell Grajeda MD LAB BLOOD ORDERABLES Final R esult [facility] [address] Department [place] [address] * (ABNORMAL) Renal function panel (09/27/2024 4:57 AM CLIENT CARE SPECIALIST) Sodium 143 135 - 145 mmol/L Potassium, pl 4.1 3.3 - 4.9 mmol/L [facility] Chloride 103 97 - 110 mmol/L [facility] CO2 28 22 - 32 mmol/L [facility] Anion gap 12 2 - 15 mmol/L [facility] BUN 15 6 - 25 mg/dL [facility] Creatinine 0.77(L) 0.80 - 1.30 mg/dL [facility] Glucose 91 70 - 199 mg/dL [facility] Comment: Interpretive Data Fasting glucose [...] Calcium 9.4 8.5 - 10.3 mg/dL [facility] Phosphorus, pl 4.4 2.3 - 4.5 mg/dL [facility] Albumin 3.9 3.5 - 5.0 g/dL [facility] Blood 09/27/2024 4:57 AM CLIENT CARE SPECIALIST 09/27/2024 5:20 AM CLIENT CARE SPECIALIST us Mitchell Grajeda MD LAB BLOOD ORDERABLES Final R esult [facility] [address] Department [place] [address] * eGFR (09/26/2024 5:36 AM CLIENT CARE SPECIALIST) eGFR >90 >=60 mL/min/1. 73 m2 Comment: [...] last reviewed 2021. Blood 09/26/2024 5:36 AM CLIENT CARE SPECIALIST 09/26/2024 6:05 AM CLIENT CARE SPECIALIST us Mitchell Grajeda MD LAB BLOOD ORDERABLES Final R esult [facility] [address] Department [place] [address] * (ABNORMAL) Renal function panel (09/26/2024 5:36 AM CLIENT CARE SPECIALIST) Sodium 139 135 - 145 mmol/L Potassium, pl 4.0 3.3 - 4.9 mmol/L [facility] Chloride 99 97 - 110 mmol/L [facility] CO2 28 22 - 32 mmol/L [facility] Anion gap 12 2 - 15 mmol/L [facility] BUN 14 6 - 25 mg/dL [facility] Creatinine 0.73(L) 0.80 - 1.30 mg/dL [facility] Glucose 95 70 - 199 mg/dL [facility] Comment: Interpretive Data Fasting glucose [...] Calcium 9.1 8.5 - 10.3 mg/dL [facility] Phosphorus, pl 4.3 2.3 - 4.5 mg/dL [facility] Albumin 4.0 3.5 - 5.0 g/dL [facility] Blood 09/26/2024 5:36 AM CLIENT CARE SPECIALIST 09/26/2024 6:05 AM CLIENT CARE SPECIALIST us Mitchell Grajeda MD LAB BLOOD ORDERABLES Final R esult [facility] [address] Department [place] [address] * eGFR (09/25/2024 5:49 AM CLIENT CARE SPECIALIST) eGFR >90 >=60 mL/min/1. 73 m2 Comment: [...] last reviewed 2021. Blood 09/25/2024 5:49 AM CLIENT CARE SPECIALIST 09/25/2024 6:01 AM CLIENT CARE SPECIALIST us Mitchell Grajeda MD LAB BLOOD ORDERABLES Final R esult [facility] [address] Department [place] [address] * (ABNORMAL) Renal function panel (09/25/2024 5:49 AM CLIENT CARE SPECIALIST) Sodium 142 135 - 145 mmol/L Potassium, pl 3.9 3.3 - 4.9 mmol/L [facility] Chloride 103 97 - 110 mmol/L [facility] CO2 29 22 - 32 mmol/L [facility] Anion gap 10 2 - 15 mmol/L [facility] BUN 10 6 - 25 mg/dL [facility] Creatinine 0.70(L) 0.80 - 1.30 mg/dL [facility] Glucose 88 70 - 199 mg/dL [facility] Comment: Interpretive Data Fasting glucose [...] Calcium 8.8 8.5 - 10.3 mg/dL [facility] Phosphorus, pl 4.1 2.3 - 4.5 mg/dL [facility] Albumin 3.7 3.5 - 5.0 g/dL [facility] Blood 09/25/2024 5:49 AM CLIENT CARE SPECIALIST 09/25/2024 6:01 AM CLIENT CARE SPECIALIST us Mitchell Grajeda MD LAB BLOOD ORDERABLES Final R esult Performing Organization Address [facility] Co de Phone Number [facility] [address] [place] [place] [address] * eGFR (09/24/2024 7:50 AM CLIENT CARE SPECIALIST) eGFR >90 >=60 mL/min/1. 73 m2 Comment: [...] last reviewed 2021. Blood 09/24/2024 7:50 AM CLIENT CARE SPECIALIST 09/24/2024 8:09 AM CLIENT CARE SPECIALIST us Mitchell Grajeda MD LAB BLOOD ORDERABLES Final R esult Performing Organization Address [facility]/ZIP Co de Phone Number [facility] [address] [place] [employer] [place], [place] [id number] * (ABNORMAL) CBC without differential (09/24/2024 7:50 AM CLIENT CARE SPECIALIST) [facility] WBC 11.4(H) 3.8 - 9.9 K/cumm Hgb 13.0 13.0 - 17.5 g/dL [facility] Hct 40.2 38.9 - 50.3 % [facility] Plt 280 150 - 400 K/cumm [facility] MPV 10.8 9.1 - 12.[address] [facility] RBC 4.40 4.30 - 5.80 M/cumm [facility] MCV 91.4 81.3 - 96.[address] [facility] MCH 29.5 27.1 - 33.[address] [facility] MCHC 32.3 32.3 - 35.7 g/dL [facility] RDW CV 13.0 11.1 - 14.9 % [facility] RDW SD 43.6 35.7 - 48.[address] [facility] NRBC abs 0.00 0.00 - 0.01 K/cumm [facility] Blood 09/24/2024 7:50 AM CLIENT CARE SPECIALIST 09/24/2024 8:10 AM CLIENT CARE SPECIALIST us Kevin Brody MD LAB BLOOD ORDERABLES Suzie gutierrez Result [facility] [address] Department [place] [address] * (ABNORMAL) Renal function panel (09/24/2024 7:50 AM CLIENT CARE SPECIALIST) [facility] Sodium 141 135 - 145 mmol/L Potassium, pl 4.0 3.3 - 4.9 mmol/L [facility] Chloride 101 97 - 110 mmol/L [facility] CO2 28 22 - 32 mmol/L [facility] Anion gap 12 2 - 15 mmol/L [facility] BUN 13 6 - 25 mg/dL [facility] Creatinine 0.75(L) 0.80 - 1.30 mg/dL [facility] Glucose 154 70 - 199 mg/dL [facility] Comment: Interpretive Data Fasting glucose [...] Calcium 9.0 8.5 - 10.3 mg/dL [facility] Phosphorus, pl 3.7 2.3 - 4.5 mg/dL [facility] Albumin 3.9 3.5 - 5.0 g/dL [facility] Blood 09/24/2024 7:50 AM CLIENT CARE SPECIALIST 09/24/2024 8:09 AM CLIENT CARE SPECIALIST Mitchell Grajeda MD LAB BLOOD ORDERABLES Final R esult [facility] [address] Department [place] [address] * (ABNORMAL) Drugs of Abuse Screen, Urine without Confirmation (09/23/2024 6:26 PM CLIENT CARE SPECIALIST) Amphetamine, ur Not Detected CutOff 500ng/mL Comment: Interpretive Data - Amphetamines: ??Samples containing greater than 500 ng/mL d-methamphetamine ??or other cross-reacting amphetamine compounds are reported as positive. ??Amphetamine immunoassays are subject to significant false positive rates due to cross-reactivity of non-amphetamine drugs. Confirmatory testing required for definitive results. Current Interpretive Data was last reviewed 2023. Barbiturates, ur Not Detected CutOff 200ng/mL [facility] Comment: Interpretive Data - Barbiturates: ??Samples containing greater than 200 ng/mL secobarbital or other cross-reacting barbiturate compounds are reported as positive. ??False positive and false negative results are possible. Confirmatory testing required for definitive results. Current Interpretive Data was last reviewed 2023. Benzodiazepines, ur Screen Positive, presumptive (A) CutOff 100ng/mL [facility] Comment: Interpretive Data - Benzodiazepines: ??Samples containing greater than 100 ng/mL nordiazepam or other cross-reacting compounds are reported as positive. False positive and false negative results are possible. Confirmatory testing required for definitive results. Current Interpretive Data was last reviewed 2023. Cannabinoids, ur Not Detected CutOff 50 ng/mL [facility] Comment: Interpretive Data - Cannabinoids: ??Samples containing greater than 50 ng/mL delta-9 THC -COOH or other cross-reacting compounds are reported as positive. ??False positive and false negative results are possible. ??Confirmatory testing required for definitive results. Current Interpretive Data was last reviewed 2023. Cocaine, ur Not Detected CutOff 150ng/mL [facility] Comment: Interpretive Data - Cocaine: ??Samples containing greater than 150 ng/mL benzoylecgonine or other cross-reacting compounds are reported as positive. False positive and false negative results are possible. Confirmatory testing required for definitive results. Current Interpretive Data was last reviewed 2023. Fentanyl, Ur Not Detected CutOff 5 ng/mL [facility] Comment: Interpretive Data - Fentanyl: ?? Samples containing greater than 5 ng/mL norfentanyl, fentanyl, or other cross-reacting fentanyl compounds are reported as positive. False positive and false negative results are possible. Confirmatory testing required for definitive results. Current Interpretive Data was last reviewed 2023. Methadone, ur Not Detected CutOff 300ng/mL [facility] Comment: Interpretive Data - Methadone: ??Samples containing greater than 300 ng/mL d,l-methadone or other cross-reacting compounds are reported as positive. ??False positive and false negative results are possible. Confirmatory testing required for definitive results. Current Interpretive Data was last reviewed 2023. Opiates, ur Not Detected CutOff 300ng/mL [facility] Comment: Interpretive Data - Opiates: ??Samples containing greater than 300 ng/mL morphine or other cross-reacting compounds are reported as positive. ??False positive and false negative results are possible. Confirmatory testing required for definitive results. Current Interpretive Data was last reviewed 2023. Oxycodone, ur Screen Positive, presumptive (A) CutOff 100ng/mL [facility] Comment: Interpretive Data - Oxycodone: ??Samples containing greater than 100 ng/mL oxycodone or other cross-reacting compounds are reported as ??positive. ??False positive and false negative results are possible. Confirmatory testing required for definitive results. Current Interpretive Data was last reviewed 2023. Phencyclidine, ur Not Detected CutOff 25 ng/mL [facility] Comment: Interpretive Data - Phencyclidine: ??Samples containing greater than 25 ng/mL phencyclidine or other cross-reacting compounds are reported as positive. ??False positive and false negative results are possible. Confirmatory testing required for definitive results. Current Interpretive Data was last reviewed 2023. Urine Creatinine 87 mg/dL [facility] Comment: Interpretive Data Urine Creatinine: < 10 mg/dL is extremely dilute = or > 10 but < 20 mg/dL is dilute = or > 20 mg/dL is normal Current Interpretive Data was last revised on 2017. Urine 09/23/2024 6:26 PM CLIENT CARE SPECIALIST 09/23/2024 6:33 PM CLIENT CARE SPECIALIST Narrative [facility] - 09/23/2024 7:11 PM CLIENT CARE SPECIALIST Drug of Abuse screening is performed by immunoassay for medical purposes only. ??This is not to be used for Pain Management purposes. Jovany Stubbs MD LAB URINE ORDERABLES Final Result [facility] [address] [place] [address] * eGFR (09/23/2024 6:17 AM CLIENT CARE SPECIALIST) eGFR >90 >=60 mL/min/1. 73 m2 Comment: [...] last reviewed 2021. Blood 09/23/2024 6:17 AM CLIENT CARE SPECIALIST 09/23/2024 6:34 AM CLIENT CARE SPECIALIST Mitchell Grajeda MD LAB BLOOD ORDERABLES Final R esult [facility] [address] [place] [address] * (ABNORMAL) CBC without differential (09/23/2024 6:17 AM CLIENT CARE SPECIALIST) WBC 8.7 3.8 - 9.9 K/cumm Hgb 12.7(L) 13.0 - 17.5 g/dL [facility] Hct 39.6 38.9 - 50.3 % [facility] Plt 244 150 - 400 K/cumm [facility] MPV 10.9 9.1 - 12.[address] [facility] RBC 4.30 4.30 - 5.80 M/cumm [facility] MCV 92.1 81.3 - 96.[address] [facility] MCH 29.5 27.1 - 33.[address] [facility] MCHC 32.1(L) 32.3 - 35.7 g/dL [facility] RDW CV 13.0 11.1 - 14.9 % [facility] RDW SD 43.8 35.7 - 48.[address] [facility] NRBC abs 0.00 0.00 - 0.01 K/cumm [facility] Blood 09/23/2024 6:17 AM CLIENT CARE SPECIALIST 09/23/2024 6:34 AM CLIENT CARE SPECIALIST us Kevin Brody MD LAB BLOOD ORDERABLES Suzie l Result [facility] [address] Department [place] [address] * (ABNORMAL) Renal function panel (09/23/2024 6:17 AM CLIENT CARE SPECIALIST) Sodium 141 135 - 145 mmol/L Potassium, pl 4.1 3.3 - 4.9 mmol/L [facility] Chloride 100 97 - 110 mmol/L [facility] CO2 30 22 - 32 mmol/L [facility] Anion gap 11 2 - 15 mmol/L [facility] BUN 10 6 - 25 mg/dL [facility] Creatinine 0.72(L) 0.80 - 1.30 mg/dL [facility] Glucose 95 70 - 199 mg/dL [facility] Comment: Interpretive Data Fasting glucose [...] Calcium 8.7 8.5 - 10.3 mg/dL [facility] Phosphorus, pl 3.9 2.3 - 4.5 mg/dL [facility] Albumin 3.5 3.5 - 5.0 g/dL [facility] Blood 09/23/2024 6:17 AM CLIENT CARE SPECIALIST 09/23/2024 6:34 AM CLIENT CARE SPECIALIST us Mitchell Ray Grajeda MD LAB BLOOD ORDERABLES Final R esult [facility] [address] Department [place] [address] * X-ray chest 1 view (Portable) (09/22/2024 12:05 PM CLIENT CARE SPECIALIST) Anatomical Region Laterality Modality Body, Chest N/A Computed Radiogr aphy 09/22/2024 12:4 0 PM CLIENT CARE SPECIALIST Impressions 09/22/2024 12:40 PM CLIENT CARE SPECIALIST Left upper extremity PICC tip in the mid SVC. Electronically signed by: Akil Cerda D.O. Narrative 09/22/2024 12:40 PM CLIENT CARE SPECIALIST EXAMINATION: XR CHEST 1 VIEW HISTORY: check [...] IMG XR PROCEDURES Fi nal Result * RI INSJ NON-TUNNELED CENTRAL VENOUS CATH AGE 5 YR/> (09/22/2024 11:15 AM CLIENT CARE SPECIALIST) Narrative Sue Steinberg PA - 09/22/2024 11:15 AM CLIENT CARE SPECIALIST Sue Steinberg PA ? 09/22/2024 11:46 AM PICC Line Insertion Date/Time: 09/22/2024 11:15 AM Performed by: Sue Steinberg PA Authorized by: Sue Steinberg PA ?? [place] Protocol: RN Notified of Procedure: yes ?? Informed consent: ??Risks, benefits, alternatives discussed and patient/direct marketing representative/guardian agrees and accepts Patient's stated name/ [...] Final Result * eGFR (09/22/2024 8:12 AM CLIENT CARE SPECIALIST) eGFR >90 >=60 mL/min/1. 73 m2 Comment: [...] last reviewed 2021. Blood 09/22/2024 8:12 AM CLIENT CARE SPECIALIST 09/22/2024 8:51 AM CLIENT CARE SPECIALIST Mitchell Grajeda MD LAB BLOOD ORDERABLES Final R esult [facility] [address] Department of Laboratories [place], [place] [id number] * CBC without differential (09/22/2024 8:12 AM CLIENT CARE SPECIALIST) [facility] WBC 8.5 3.8 - 9.9 K/cumm Hgb 13.6 13.0 - 17.5 g/dL [facility] Hct 41.9 38.9 - 50.3 % [facility] Plt 241 150 - 400 K/cumm [facility] MPV 11.4 9.1 - 12.[address] [facility] RBC 4.59 4.30 - 5.80 M/cumm [facility] MCV 91.3 81.3 - 96.[address] [facility] MCH 29.6 27.1 - 33.[address] [facility] MCHC 32.5 32.3 - 35.7 g/dL [facility] RDW CV 13.0 11.1 - 14.9 % [facility] RDW SD 43.8 35.7 - 48.[address] [facility] NRBC abs 0.00 0.00 - 0.01 K/cumm [facility] Blood 09/22/2024 8:12 AM CLIENT CARE SPECIALIST 09/22/2024 8:52 AM CLIENT CARE SPECIALIST us Kevin Brody MD LAB BLOOD ORDERABLES Suzie l Result [facility] [address] Department [place] [address] * (ABNORMAL) Renal function panel (09/22/2024 8:12 AM CLIENT CARE SPECIALIST) Sodium 143 135 - 145 mmol/L Potassium, pl 3.7 3.3 - 4.9 mmol/L [facility] Chloride 100 97 - 110 mmol/L [facility] CO2 31 22 - 32 mmol/L [facility] Anion gap 12 2 - 15 mmol/L [facility] BUN 9 6 - 25 mg/dL [facility] Creatinine 0.77(L) 0.80 - 1.30 mg/dL [facility] Glucose 144 70 - 199 mg/dL [facility] Comment: Interpretive Data Fasting glucose [...] Calcium 9.3 8.5 - 10.3 mg/dL [facility] Phosphorus, pl 4.6(H) 2.3 - 4.5 mg/dL [facility] Albumin 4.1 3.5 - 5.0 g/dL [facility] Blood 09/22/2024 8:12 AM CLIENT CARE SPECIALIST 09/22/2024 8:51 AM CLIENT CARE SPECIALIST us Mitchell Grajeda MD LAB BLOOD ORDERABLES Final R esult [facility] [address] Department of Laboratories [place], [place] [id number] * eGFR (09/21/2024 6:09 AM CLIENT CARE SPECIALIST) eGFR >90 >=60 mL/min/1. 73 m2 Comment: [...] last reviewed 2021. Blood 09/21/2024 6:09 AM CLIENT CARE SPECIALIST 09/21/2024 7:01 AM CLIENT CARE SPECIALIST us Mitchell Grajeda MD LAB BLOOD ORDERABLES Final R esult Performing Organization Address [facility]/ZIP Co de Phone Number [facility] [address] [place] [place] [address] * (ABNORMAL) CBC without differential (09/21/2024 6:09 AM CLIENT CARE SPECIALIST) Pathologist [facility] WBC 8.8 3.8 - 9.9 K/cumm Hgb 11.7(L) 13.0 - 17.5 g/dL [facility] Hct 36.0(L) 38.9 - 50.3 % [facility] Plt 162 150 - 400 K/cumm [facility] MPV 12.0 9.1 - 12.[address] [facility] RBC 3.93(L) 4.30 - 5.80 M/cumm [facility] MCV 91.6 81.3 - 96.[address] [facility] MCH 29.8 27.1 - 33.[address] [facility] MCHC 32.5 32.3 - 35.7 g/dL [facility] RDW CV 13.0 11.1 - 14.9 % [facility] RDW SD 44.1 35.7 - 48.[address] [facility] NRBC abs 0.00 0.00 - 0.01 K/cumm [facility] Blood 09/21/2024 6:09 AM CLIENT CARE SPECIALIST 09/21/2024 7:01 AM CLIENT CARE SPECIALIST us Kevin Brody MD LAB BLOOD ORDERABLES Suzie l Result [facility] [address] [place] [address] * (ABNORMAL) Renal function panel (09/21/2024 6:09 AM CLIENT CARE SPECIALIST) Pathologist [facility] Sodium 143 135 - 145 mmol/L Potassium, pl 3.5 3.3 - 4.9 mmol/L [facility] Chloride 105 97 - 110 mmol/L [facility] CO2 26 22 - 32 mmol/L [facility] Anion gap 12 2 - 15 mmol/L [facility] BUN 10 6 - 25 mg/dL [facility] Creatinine 0.70(L) 0.80 - 1.30 mg/dL [facility] Glucose 102 70 - 199 mg/dL [facility] Comment: Interpretive Data Fasting glucose [...] Calcium 8.6 8.5 - 10.3 mg/dL [facility] Phosphorus, pl 3.6 2.3 - 4.5 mg/dL [facility] Albumin 3.3(L) 3.5 - 5.0 g/dL [facility] Blood 09/21/2024 6:09 AM CLIENT CARE SPECIALIST 09/21/2024 7:01 AM CLIENT CARE SPECIALIST us Mitchell Grajeda MD LAB BLOOD ORDERABLES Final R esult [facility] [address] Department [place] [address] * (ABNORMAL) Vancomycin level trough Please draw trough at this specific time. (09/20/2024 5:36 PM CLIENT CARE SPECIALIST) Vancomycin trough 7.4(L) 10.0 - 20.0 mcg/mL Blood 09/20/2024 5:36 PM CLIENT CARE SPECIALIST 09/20/2024 5:40 PM CLIENT CARE SPECIALIST Narrative [facility] - 09/20/2024 6:00 PM CLIENT CARE SPECIALIST Please draw trough at this specific time. us Mitchell Grajeda MD LAB BLOOD ORDERABLES Final R esult Performing Organization Address [facility]/ZIP Co de Phone Number [facility] [address] [place] [address] * (ABNORMAL) CBC without differential (09/20/2024 5:58 AM CLIENT CARE SPECIALIST) Pathologist [facility] WBC 17.4(H) 3.8 - 9.9 K/cumm Hgb 12.8(L) 13.0 - 17.5 g/dL [facility] Hct 40.4 38.9 - 50.3 % [facility] Plt 174 150 - 400 K/cumm [facility] MPV 12.4(H) 9.1 - 12.[address] [facility] RBC 4.37 4.30 - 5.80 M/cumm [facility] MCV 92.4 81.3 - 96.[address] [facility] MCH 29.3 27.1 - 33.[address] [facility] MCHC 31.7(L) 32.3 - 35.7 g/dL [facility] RDW CV 12.9 11.1 - 14.9 % [facility] RDW SD 44.1 35.7 - 48.[address] [facility] NRBC abs 0.00 0.00 - 0.01 K/cumm [facility] Blood 09/20/2024 5:58 AM CLIENT CARE SPECIALIST 09/20/2024 6:35 AM CLIENT CARE SPECIALIST us Kevin Brody MD LAB BLOOD ORDERABLES Suzie l Result [facility] [address] [place] [address] * (ABNORMAL) Tissue aerobic and anaerobic culture and gram stain Tissue Back, lower (09/19/2024 11:08AM CLIENT CARE SPECIALIST) Pathologist [facility] Direct Specimen Exam Stain: No polymorphonuclear leukocytes seen. No organisms seen. Report Final Report: Very light growth Staphylococcus aureus, methicillin susceptible (.) [facility] Organism STAPHYLOCOCCUS AUREUS, METHICILLIN SUSCEPTIBLE [facility] Tissue (Back, lower) 09/19/2024 11:08 AM CLIENT CARE SPECIALIST 09/19/2024 12:11 PM CLIENT CARE SPECIALIST Narrative [facility] - 09/22/2024 9:51 AM CLIENT CARE SPECIALIST Deep Tissue Organism Antibiotic Method Susceptibility Staphylococcus [...] L ORDERABLES Final Result Performing Organization Address [facility]/ZIP Co de Phone Number [facility] [address] Department [employer] [place], [place] [id number] * Mycology (fungal) culture Tissue Back, lower (09/19/2024 11:08 AM CLIENT CARE SPECIALIST) Report Final Report: No fungus isolated Tissue (Back, lower) 09/19/2024 11:08 AM CLIENT CARE SPECIALIST 09/19/2024 12:11 PM CLIENT CARE SPECIALIST [facility] - 10/17/2024 1:00 PM CLIENT CARE SPECIALIST Deep Tissue Mycology cultures are held for 4 weeks. Kevin Brody MD LAB MICROBIOLOGY - GENERA L ORDERABLES Final Result Performing Organization Address City/[facility]/ZIP Co de Phone Number [facility] [address] [place] [place] [address] * Mycology (fungal) culture Abscess Back, lower (09/19/2024 11:07 AM CLIENT CARE SPECIALIST) Report Final Report: No fungus isolated Abscess (Back, lower) 09/19/2024 11:07 AM CLIENT CARE SPECIALIST 09/19/2024 12:25 PM CLIENT CARE SPECIALIST [place] [facility] - 10/17/2024 1:00 PM CLIENT CARE SPECIALIST Deep Mycology cultures are held for 4 weeks. us Kevin Brody MD LAB MICROBIOLOGY - GENERA L ORDERABLES Final Result Performing Organization Address [facility] Co de Phone Number [facility] [address] [facility] [place] [address] * Mycology (fungal) culture Abscess Back, lower (09/19/2024 11:07 AM CLIENT CARE SPECIALIST) Report Final Report: No fungus isolated Abscess (Back, lower) 09/19/2024 11:07 AM CLIENT CARE SPECIALIST 09/19/2024 12:25 PM CLIENT CARE SPECIALIST Narrative [facility] - 10/17/2024 1:00 PM CLIENT CARE SPECIALIST Superficial Mycology cultures are held for 4 weeks. us Kevin Brody MD LAB MICROBIOLOGY - GENERA L ORDERABLES Final Result Performing Organization Address [facility] Co de Phone Number [facility] [address] [place] [address] * (ABNORMAL) Aerobic and anaerobic culture and gram stain Abscess Back, lower (09/19/2024 11:07 AM CLIENT CARE SPECIALIST) Direct Specimen Exam Stain: No polymorphonuclear leukocytes seen. No organisms seen. Report Final Report: Light growth of: Staphylococcus aureus, methicillin susceptible Susceptibility reported on this organism on previous culture [id number] (.) [facility] Organism STAPHYLOCOCCUS AUREUS, METHICILLIN SUSCEPTIBLE [facility] Abscess (Back, lower) 09/19/2024 11:07 AM CLIENT CARE SPECIALIST 09/19/2024 12:25 PM CLIENT CARE SPECIALIST Narrative [facility] - 09/23/2024 8:55 AM CLIENT CARE SPECIALIST Deep Kevin Brody MD LAB MICROBIOLOGY - GENERA L ORDERABLES Final Result Performing Organization Address [facility] Co de Phone Number [facility] [address] [place] [address] * (ABNORMAL) Aerobic and anaerobic culture and gram stain Abscess Back, lower (09/19/2024 11:07 AM CLIENT CARE SPECIALIST) Direct Specimen Exam Stain: Few polymorphonuclear leukocytes seen. Rare Gram Positive Cocci Report Final Report: Moderate growth of: Staphylococcus aureus, methicillin susceptible (.) [facility] Organism STAPHYLOCOCCUS AUREUS, METHICILLIN SUSCEPTIBLE [facility] Abscess (Back, lower) 09/19/2024 11:07 AM CLIENT CARE SPECIALIST 09/19/2024 12:25 PM CLIENT CARE SPECIALIST Narrative [facility] - 09/23/2024 8:49 AM CLIENT CARE SPECIALIST Superficial Organism Antibiotic Method Susceptibility Staphylococcus aureus, [...] susceptible Vancomycin (SHILOH) INTERPRETATION 1 mcg/mL: Susceptible us Kevin Brody MD LAB MICROBIOLOGY - GENERA L ORDERABLES Final Result [facility] [address] [place] [address] * RI AN ELECTIVE ENDOTRACHEAL AIRWAY, RI AN PROCEDURE PLACEHOLDER (09/19/2024 10:49 AM CLIENT CARE SPECIALIST) Narrative Sonia David CRNA - 09/19/2024 10:49 AM CLIENT CARE SPECIALIST Sonia David CRNA ? 09/19/2024 10:50 AM Airway Patient location: OR Urgency: elective Indications for airway management: anesthesia Difficult airway: no Staff: Placed by: [employer] MANAGEMENT TECHNICIAN: Sonia David CRNA Emergent airway documentation: Risks [...] * (ABNORMAL) Differential, auto (09/19/2024 1:19 AM CLIENT CARE SPECIALIST) Pathologist [facility] Neutrophil abs 13.1(H) 1.5 - 6.5 K/cumm Imm gran abs 0.1 0.0 - 0.1 K/cumm [facility] Lymphocyte abs 1.3 0.8 - 3.3 K/cumm [facility] Monocyte abs 1.3(H) 0.2 - 0.8 K/cumm [facility] Eosinophil abs 0.0 0.0 - 0.5 K/cumm [facility] Basophil abs 0.0 0.0 - 0.1 K/cumm [facility] Neutrophil pct 83.0 % [facility] Comment: Interpretive Data Percent cell count reference ranges are not reported, since discordance with absolute values may lead to misinterpretation of CBC data. Current Interpretive Data was last revised on 2018. Imm gran pct 0.5 % [facility] Comment: Interpretive Data Percent cell count reference ranges are not reported, since discordance with absolute values may lead to misinterpretation of CBC data. Current Interpretive Data was last revised on 2018. Lymphocyte pct 8.0 % [facility] Comment: Interpretive Data Percent cell count reference ranges are not reported, since discordance with absolute values may lead to misinterpretation of CBC data. Current Interpretive Data was last revised on 2018. Monocyte pct 8.3 % [facility] Comment: Interpretive Data Percent cell count reference ranges are not reported, since discordance with absolute values may lead to misinterpretation of CBC data. Current Interpretive Data was last revised on 2018. Eosinophil pct 0.1 % [facility] Comment: Interpretive Data Percent cell count reference ranges are not reported, since discordance with absolute values may lead to misinterpretation of CBC data. Current Interpretive Data was last revised on 2018. Basophil pct 0.1 % [facility] Comment: Interpretive Data Percent cell count reference ranges are not reported, since discordance with absolute values may lead to misinterpretation of CBC data. Current Interpretive Data was last revised on 2018. Blood 09/19/2024 1:19 AM CLIENT CARE SPECIALIST 09/19/2024 1:19 AM CLIENT CARE SPECIALIST us Kita Astudillo MD LAB BLOOD ORDERABLES Final Resu lt Performing Organization Address City/[facility]/ZIP Co de Phone Number [facility] [address] [facility] [place] [place] [address] * (ABNORMAL) CBC with auto differential (09/19/2024 1:19 AM CLIENT CARE SPECIALIST) WBC 15.8(H) 3.8 - 9.9 K/cumm Hgb 13.0 13.0 - 17.5 g/dL [facility] Hct 39.4 38.9 - 50.3 % [facility] Plt 150 150 - 400 K/cumm [facility] MPV 12.1 9.1 - 12.[address] [facility] RBC 4.38 4.30 - 5.80 M/cumm [facility] MCV 90.0 81.3 - 96.[address] [facility] MCH 29.7 27.1 - 33.[address] [facility] MCHC 33.0 32.3 - 35.7 g/dL [facility] RDW CV 12.7 11.1 - 14.9 % [facility] RDW SD 42.4 35.7 - 48.[address] [facility] NRBC abs 0.00 0.00 - 0.01 K/cumm [facility] Blood 09/19/2024 1:19 AM CLIENT CARE SPECIALIST 09/19/2024 1:19 AM CLIENT CARE SPECIALIST us Kita Astudillo MD LAB BLOOD ORDERABLES Final Resu lt [facility] [address] Department [place] [address] * eGFR (09/19/2024 12:55 AM CLIENT CARE SPECIALIST) eGFR >90 >=60 mL/min/1. 73 m2 Comment: [...] reviewed 2021. Blood 09/19/2024 12:5 5 AM CLIENT CARE SPECIALIST 09/19/2024 1:19 AM CLIENT CARE SPECIALIST us Kita Astudillo MD LAB BLOOD ORDERABLES Final Resu lt [facility] [address] Department of Laboratories [place], [place] [id number] * Blood culture Blood (09/19/2024 12:55 AM CLIENT CARE SPECIALIST) Report Final Report: No growth Blood 09/19/2024 12:5 5 AM CLIENT CARE SPECIALIST 09/19/2024 2:14 AM CLIENT CARE SPECIALIST Narrative [facility] - 09/24/2024 7:01 AM CLIENT CARE SPECIALIST From a different site than #1. Collection->Peripheral [...] organism identification may be performed using the [employer] Blood Culture Identification panel. This assay detects microbial DNA in a blood culture broth. This assay has been cleared by the [place] Food and Drug Administration and its performance characteristics have been verified by the [facility]. Interpretive data was last revised on October 27, 2022. Kita Astudillo MD LAB MICROBIOLOGY - [facility] Final Result [facility] [address] [place] [address] * Blood culture Blood (09/19/2024 12:55 AM CLIENT CARE SPECIALIST) Report Final Report: No growth Blood 09/19/2024 12:5 5 AM CLIENT CARE SPECIALIST 09/19/2024 2:14 AM CLIENT CARE SPECIALIST Narrative [facility] - 09/24/2024 7:01 AM CLIENT CARE SPECIALIST Collection->Peripheral Interpretive Data 1. Blood cultures are incubated and monitored continuously for 5 days (120 hours). The first negative report is issued within 24 hours of receipt in the laboratory. 2. All positive cultures are resulted and called to physicians/care providers as soon as they are detected. 3. A rapid molecular test for organism identification may be performed using the Cort[employer] Blood Culture Identification panel. This assay detects microbial DNA in a blood culture broth. This assay has been cleared by the [place] Food and Drug Administration and its performance characteristics have been verified by the [facility]. Interpretive data was last revised on October 27, 2022. Kita Astudillo MD LAB MICROBIOLOGY - GENERAL CALVINTay NGERON Final Result [facility] [address] [place] [address] * (ABNORMAL) Comprehensive metabolic panel (09/19/2024 12:55 AM CLIENT CARE SPECIALIST) Sodium 136 135 - 145 mmol/L Potassium, pl 4.1 3.3 - 4.9 mmol/L [facility] Comment:Hemolyzed; potassium value may be falsely elevated by as much as 0.3 - 0.5 mmol/L. Suggest redraw and reanalysis Chloride 98 97 - 110 mmol/L [facility] CO2 26 22 - 32 mmol/L [facility] Anion gap 12 2 - 15 mmol/L [facility] BUN 8 6 - 25 mg/dL [facility] Creatinine 0.70(L) 0.80 - 1.30 mg/dL [facility] Glucose 139 70 - 199 mg/dL [facility] Comment: Interpretive Data Fasting glucose [...] Calcium 9.1 8.5 - 10.3 mg/dL [facility] Bilirubin, total 0.9 0.1 - 1.2 mg/dL [facility] Protein, pl 6.7 6.5 - 8.5 g/dL [facility] Albumin 3.7 3.5 - 5.0 g/dL [facility] Alk phos 92 40 - 130 Units/L [facility] ALT 18 7 - 55 Units/L [facility] AST 22 10 - 50 Units/L [facility] Comment:Slightly Hemolyzed S pecimen Blood 09/19/2024 12:5 5 AM CLIENT CARE SPECIALIST 09/19/2024 1:19 AM CLIENT CARE SPECIALIST us Kita Astudillo MD LAB BLOOD ORDERABLES Final Resu lt Performing Organization Address [facility]/ZIP Co de Phone Number [facility] [address] [place] [address] * (ABNORMAL) CBC without differential (08/14/2024 7:13 AM CLIENT CARE SPECIALIST) WBC 16.5(H) 3.8 - 9.9 K/cumm Hgb 14.5 13.0 - 17.5 g/dL [facility] Hct 43.7 38.9 - 50.3 % [facility] Plt 169 150 - 400 K/cumm [facility] MPV 12.0 9.1 - 12.[address] [facility] RBC 4.87 4.30 - 5.80 M/cumm [facility] MCV 89.7 81.3 - 96.[address] [facility] MCH 29.8 27.1 - 33.[address] [facility] MCHC 33.2 32.3 - 35.7 g/dL [facility] RDW CV 13.3 11.1 - 14.9 % [facility] RDW SD 44.0 35.7 - 48.[address] [facility] NRBC abs 0.00 0.00 - 0.01 K/cumm [facility] Blood 08/14/2024 7:13 AM CLIENT CARE SPECIALIST 08/14/2024 7:51 AM CLIENT CARE SPECIALIST us Kevin Brody MD LAB BLOOD ORDERABLES Suzie l Result Performing Organization Address City/[facility]/ZIP Co de Phone Number [facility] [address] Department of Laboratories [place], [place] [id number] * Surgical pathology (08/13/2024 11:16 AM CLIENT CARE SPECIALIST) Disc, intervertebral 024 11:16 AM CLIENT CARE SPECIALIST 08/13/2024 1:53 PM CLIENT CARE SPECIALIST Narrative 08/14/2024 2:09 PM CLIENT CARE SPECIALIST [place] [address] [facility], [place], [place] ??[address] Tele: ?? Batsheva Ji MD - Supervisor [employer] Note to Patients: This report may contain [...] REPORT Patient Name: ??TRAMAINE MARINChristopher SCOTT Address: ??[address] [place] [address] ??[id number] Gender: ??M : ??1970 (Age: 53) Service: ??Ortho Location: ??[place] [address], ?? Hospital #: ??[id number] Patient Type: [place] Accession #: ? [id number] Taken: ? 08/13/2024 Received ? 08/13/2024 Reported: ? 08/14/2024 Physician(s): ? Kevin Brody M.D. Elton Higinio Jean Baptiste M.D. DIAGNOSIS: Intervertebral disc, L3-5, discectomy: ? - Disc material with degenerative changes [facility]/14/2024 14:09 Examining Pathologist: Asa Rodrigues M.D. Report Reviewed and Electronically Signed By ??Asa Rodrigues M.D. SPECIMEN TYPE: A: DISC MATERIAL CLINICAL IMPRESSION AND HISTORY: Pseudoclaudication syndrome GROSS DESCRIPTION: Received in formalin labeled with TRAMAINE MARIN and disc material are red- brown irregular tissue fragments measuring 3.9 x 3.5 x 0.6 cm in aggregate Slotter Operator sections are submitted in cassette labeled A1. ?? [facility] MICROSCOPIC DESCRIPTION: Microscopic examination supports the above captioned diagnosis. This case was signed out at [facility], [address] [place] [address]. Clerical Data Follows A; 40909 REPORT IMAGES AND/OR SCANNED DOCUMENTS ONLY VIEWABLE IN PDF FORMAT The immunohistochemical test(s) cited in this report, if any, was developed and its performance characteristics determined by [facility] Pathology Department. ??It has not been cleared or approved by the U.S. Food and Drug Administration. ??The FDA has determined that such clearance or approval is not necessary. ??This test is used for clinical purposes. ??It should not be regarded as investigational or for research. ??[facility] Laboratory is certified under the Clinical Laboratory [...] part or completely in the following laboratories: [facility], [address] [place] [address]. Kevin Brody MD LAB PATHOLOGY ORDERABLES Final Result * FL Fluoroscopy < 1 Hour (08/13/2024 11:08 AM CLIENT CARE SPECIALIST) Narrative [facility] - 08/13/2024 11:09 AM CLIENT CARE SPECIALIST The images from this study are not interpreted by Radiology. ??Please refer to the physician's procedure / OR operative note. Kevin Brody MD IMG FLUOROSCOPY PROCEDURE S Final Result [facility] * XR Spine Lumbar 2 or 3 Views (08/13/2024 11:08 AM CLIENT CARE SPECIALIST) Anatomical Region Laterality Modality Spine N/A Computed Radiogr aphy 08/13/2024 11:3 5 AM CLIENT CARE SPECIALIST Impressions 08/13/2024 11:35 AM CLIENT CARE SPECIALIST FINDINGS/IMPRESSION: 6 intraoperative fluoroscopic images are submitted for review. Fusion L4-L5 vertebral bodies. Postoperative changes of L3-L5 posterior fusion and decompression with L3-L4 interbody fusion device placement. Hardware is grossly intact. Please refer to the dedicated operative report for complete evaluation of real-time findings. Electronically signed by: Justus Toledo M.D. Narrative 08/13/2024 11:35 AM CLIENT CARE SPECIALIST EXAM: XR SPINE LUMBAR 2 OR 3 [...] IMG XR PROCEDURES Final R esult * RI AN ELECTIVE ENDOTRACHEAL AIRWAY, RI AN PROCEDURE PLACEHOLDER (08/13/2024 7:59 AM CLIENT CARE SPECIALIST) Narrative Naomi Galvan CRNA - 08/13/2024 7:59 AM CLIENT CARE SPECIALIST Naomi Galvan CRNA ? 08/13/2024 ??8:01 AM Airway Patient location: OR Urgency: elective Indications for airway management: anesthesia Difficult airway: no Staff: Supervising provider: Jason Christianson MD Placed by: BIOSOLIDS MANAGEMENT TECHNICIAN: Naomi Galvan CRNA Emergent airway documentation: [...] Result * Check Sample (08/13/2024 6:59 AM CLIENT CARE SPECIALIST) ABO Rh O Positive [facility] OTHER 08/13/2024 6:59 AM CLIENT CARE SPECIALIST 08/13/2024 7:23 AM CLIENT CARE SPECIALIST Ara Robbins MEDICAL SPECIALIST LAB BLOOD ORDERABLES Fi nal Result [facility] [address] Department [place] [address] [facility] * POCT lipid panel (07/30/2024 10:33 AM CLIENT CARE SPECIALIST) Cholesterol, POC 186 mg/dL HDL, POC 28 mg/dL Triglycerides, POC 215 mg/dL LDL Cholesterol POC 115 mg/dL Chol/HDL Ratio, POC 6.7 Non-HDL Cholesterol, POC 158 mg/dL Cholesterol Total, POC 186 mg/dL Capillary blood 07/30/2024 1 0:33 AM CLIENT CARE SPECIALIST Hunter Smith MD POINT OF CARE TEST ORDERABLES Fi nal Result * ECG 12 lead (07/30/2024 10:22 AM CLIENT CARE SPECIALIST) Hunter Smith MD ECG ORDERABLES Edited Result - Final from Last 3 Months Insurance [facility] [place] For more information, please contact: [phone] * Full Code (Latest Code Status on File) Date Activated Date Inactivated Comments 09/19/2024 12:47 PM 10/05/2024 3:11 PM * Full Code Date Activated Date Inactivated Comments 09/18/2024 8:09 PM 09/19/2024 12:47 PM * Full Code Date Activated Date Inactivated Comments 08/13/2024 2:58 PM 08/14/2024 4:58 PM Care Teams Licensed Weigher Relationship Specialty Start Date End Date Elton De La Fuente MD PCP - General Family Medicine 06/02/21
[2024-10-30 07:29] LABS: Basophils Absolute Auto 0.02 K/mm3 (0.00-0.10); Basophils Percent Auto 0.3 % (0.0-1.0); Eosinophils Absolute Auto 0.18 K/mm3 (0.02-0.50); Eosinophils Percent Auto 2.9 % (1.0-6.0); Hematocrit 47.3 % (40.0-54.0); Hemoglobin 15.2 g/dL (14.0-18.0); Lymphocytes Absolute Auto 1.59 K/mm3 (1.10-4.50); Lymphocytes Percent Auto 25.2 % (18.0-42.0); Mean Corpuscular HGB Conc 32.1 g/dL (32-36); Mean Corpuscular Hemoglobin 28.4 pg (27.0-31.0); Mean Corpuscular Volume 88.2 fL (78.0-102.0); Mean Platelet Volume 11.1 fl (8.7-11.0); Monocytes Absolute Auto 0.88 K/mm3 (0.10-0.90); Neutrophils Absolute Auto 3.63 K/mm3 (1.70-7.20); Neutrophils Percent Auto 57.6 % (50.0-70.0); Platelet Count Result 162 K/mm3 (150-420); Red Blood Count 5.36 M/mm3 (4.70-6.10); White Blood Count 6.3 K/mm3 (4.8-10.8)
[2024-10-30 08:10] LABS: Alanine Aminotransferase 20 U/L (16-63); Albumin Level 3.7 g/dL (3.4-5.0); Alkaline Phosphatase 96 U/L (46-116); Anion Gap 9 mmol/L (4-12); Aspartate Amino Transferase 18 U/L (15-37); Bilirubin,Total 0.5 mg/dL (0.00-1.00); Blood Urea Nitrogen 9 mg/dL (7-18); Calcium 8.9 mg/dL (8.5-10.1); Carbon Dioxide 28 mmol/L (21-32); Chloride 104 mmol/L (98-108); Estimated Glomerular Filt Rate > 60; Glucose 112 mg/dL (70-99); Osmolality Calculated 291 mOsm/kg (285-295); Potassium 3.6 mmol/L (3.5-5.1); Sodium 141 mmol/L (136-145); Total Protein 6.9 g/dL (6.4-8.2)
== END 2024-10-30 07:11 | disposition home or self-care (01) ==
LOC: CHSLAB 07:12
PROVIDERS: PCP Family Medicine; Visit Provider Family Medicine
DX: M47.812 Spondylosis without myelopathy or radiculopathy, cervical region (principal); T81.49XD Infection following a procedure, other surgical site, subsequent encounter; M51.360 Other intervertebral disc degeneration, lumbar region with discogenic back pain only
CPT/HCPCS: 36415; 80053; 85025

== ENCOUNTER 2024-11-08 09:43 | Outpatient (CLI) | payer BC, SELFPAY ==
--- OUTSIDE RECORDS SUMMARY | 2024-11-08 09:46 | XMS_ITS ---
Author Organization [facility] Address [address] [place] [address] Care Team Providers Care Social Insurance Adviser Name Role Phone Mary Grace SOMMERS, Kevin Unavailable Unavailable Sue Davis Unavailable [phone] Medications Medication SIG (Take, Route, Frequency, Duration) Notes Start Date End Date Status HYDROcodone-Acetaminop hen 7.5-325 MG 1 tablet Orally every 6 hrs for 10 days Fill 08/05/24 08/05/2024 Active Encounters Encounter Location Date Provider Diagnosis [facility] [address] [place] [address] 08/05/2024 Sue Davis Plan Of Treatment Medication Medication Name Sig Start Date Stop Date Notes HYDROcodone-Acetaminophen 7.5-325 MG 1 tablet Orally every 6 hrs for 10 days 08/05/2024 Fill 08/05/24 Progress Notes * Tramaine MARIN LDOB:1970 (53 yo M)Acc No.[id number]:08/05/2024 Patient: Tramaine REINA Thomas :1970 A ge:53 Y S ex:Male Phone: Address:[address] [place] [address], [address] * Refills Refill HYDROcodone-Acetaminophen Tablet, 7.5-325 MG, Orally, 40 Tablet, 1 tablet, every 6 hrs, 10 days, Refills=0 * true * Date: Generated for Junior modi/Inna/eTransmitting on: 0 11/08/2024 09:45 AM VEGETABLE VENDOR
--- OUTSIDE RECORDS SUMMARY | 2024-11-08 09:46 | XMS_ITS ---
Author Organization [facility] Address [address] [place] [address] [address] [place] [address] Care Team Providers Care Stapling Machine Operator Name Role Phone Mary Grace SOMMERS, Kevin Unavailable Unavailable Gilda THOMPSON, Bailey Unavailable [phone] REASON FOR VISIT meds Encounters Encounter Location Date Provider Diagnosis [facility] [address] [facility] [address] [place] [address] 09/02/2024 Bailey Vo Plan Of Treatment No Information Progress Notes * Tramaine MARIN LDOB:1970 (53 yo M)Acc No.[id number]:09/02/2024 Progress Notes Patient: Tramaine REINA Appointment Provider: CLAUDIA Brady :1970 A ge:53 Y S ex:Male Date:09/02/2024 Phone: Address:[address] [place], [place] [phone] Subjective: * Chief Complaints: * 1 . Meds. 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
--- OUTSIDE RECORDS SUMMARY | 2024-11-08 09:46 | XMS_ITS | Patient Health Record ---
Author Organization [facility] Address [address] [facility] [address] [place] [address] Care Team Providers Care Ice Cream Dipper Name Role Phone Kevin Brody MD Unavailable Unavailable Sue Davis Unavailable [phone] Twan Castillo Unavailable [phone] Bailey Vo PA-C Unavailable Hillary Staples Unavailable [phone] Allergies Allergen (clinical drug ingredient) Drug/Non Drug [...] Status W/U Status Risk Notes Problem Cervicalgia (80363632) Cervicalgia (M54.2) Active confirmed Problem Cervical spondylosis (545230070) Cervical spondylosis (M47.812) Active confirmed Problem Sacroiliitis (50370558) Sacroiliitis (M46.1) Active confirmed Problem Cervical radiculopathy (58720448) Cervical radiculopathy (M54.12) Active confirmed Problem Post-laminectomy syndrome (56072341) Post laminectomy syndrome (M96.1) Active confirmed Problem Low back pain (667727594) Low back pain (M54.50) Active confirmed Vital Signs Heart Rate 81 /min 08/05/2024 Height-cm 177.8 cm 08/05/2024 Blood pressure diastolic 89 mm Hg 08/05/2024 Weight-kg 79.38 kg 08/05/2024 Height 70 in 08/05/2024 Blood pressure systolic 153 mm Hg 08/05/2024 Weight 175 lbs 08/05/2024 BMI 25.11 kg/m2 08/05/2024 Encounters Encounter Location Date Provider Diagnosis [facility] [place] [address] [facility] [address] [place] [address] 02/07/2024 Twan Castillo [facility] [place] [address] [facility] [address] [place] [address] 02/14/2024 Twan Castillo [facility] [place] [address] [place] [address] [address] [place] [address] 03/13/2024 Twan Castillo [facility] [place] [address] [facility] [address] [place] [address] 03/20/2024 Twan Castillo [facility] [place] [address] [place] [address] [address] [place] [address] 05/28/2024 Hillary Staples Low back pain M54.50 ; Post laminectomy syndrome M96.1 ; Sacroiliitis M46.1 ; Cervicalgia M54.2 and Other usp (current) drug therapy Z79.899 [facility] [address] [facility] [address] [place] [address] 08/05/2024 Bailey Vo Low back pain M54.50 ; Post laminectomy syndrome M96.1 ; Sacroiliitis M46.1 ; Cervicalgia M54.2 ; Cervical spondylosis M47.812 and Cervical radiculopathy M54.12 [facility] [address] [place] [address] 05/28/2024 Twan Castillo [facility] [place] [address] [facility] [address] [place] [address] 06/27/2024 Twan Castillo [facility] [place] [address] [facility] [address] [place] [address] 08/05/2024 Sue Davis Assessments Encounter Date Diagnosis [...] 08/05/2024 Sacroiliitis (ICD-10 - M46.1) 05/28/2024 Other terminal press operator (current) drug therapy (ICD-10 - Z79.899) 08/05/2024 [...] Insured Coverage Start Date Coverage End Date [facility] [address] [place] [address] [id number] Tramaine Marin Self - patient is the insured Medical (General) History Medical History History ICD Code COPD Kidney stones Alcoholism- recovery Depression and anxiety Surgical History Surgery Date(Month/Year) ACDF 2020 lumbar decompression/laminectomy surgery at L4-5 level 2020 Hospitalization History Reason Date(Month/Year) no hospitalization since last visit
--- OUTSIDE RECORDS SUMMARY | 2024-11-08 09:46 | XMS_ITS | Clinical Summary ---
Author Organization [facility] Address [address] [place] [address] Care Team Providers Care Pt Skilled Name Role Phone Elton De La Fuente MD Primary Care Provider [phone] Allergies Active Allergy Reactions Criticality Noted Date Comments Pseudoephedrine Other (see comment) Low 06/02/2021 siakey Medications albuterol sulfate HFA 108 (90 Base) [...] 89 05/08/2024 9:44 AM CDT Temperature 36.3 C (97.3 F) 05/08/2024 9:44 AM CDT Respiratory Rate 18 05/08/2024 9:44 AM CDT [...] patient's age to complete this topic [place] [address] [address] [place] [address] Care Teams Pt Skilled Relationship Specialty Start Date End Date Elton De La Fuente MD [address] [address] PCP - General FAMILY PRACTICE 05/08/24
--- OUTSIDE RECORDS SUMMARY | 2024-11-08 09:46 | XMS_ITS ---
Author Organization [facility] Address [address] [place] [address] [address] [place] [address] Care Team Providers Care Dock Attendant Name Role Phone Mary Grace SOMMERS, Kevin Unavailable Unavailable Gilda THOMPSON, Bailey Unavailable REASON FOR VISIT meds Encounters Encounter Location Date Provider Diagnosis [facility] [address] [facility] [address] [place] [address] 09/05/2024 Bailey Vo Plan Of Treatment No Information Progress Notes * Tramaine MARIN LDOB:1970 (53 yo M)Acc No.[id number]:09/05/2024 Progress Notes Patient: Tramaine REINA Appointment Provider: CLAUDIA Brady :1970 A ge:53 Y S ex:Male Date:09/05/2024 Phone: Address:[address] [place], [place] [phone] Subjective: * Chief Complaints: * 1 . Meds. * Medical History: Objective: * Vitals: Assessment: Plan: * Treatment: * Billing Information: * Visit Code: * Procedure Codes: * Electronic signature of CLAUDIA Banks PA-C on 11/08/2024 at 09:46 AM ADVISER SALES Sign off status: Pending * Appointment Provider: CLAUDIA Brady Date: 1 11/06/2023 Generated for Printing/Faxing/eTransmitting on: 0 11/08/2024 09:46 AM ADVISER SALES
--- OUTSIDE RECORDS SUMMARY | 2024-11-08 09:46 | XMS_ITS | Clinical Summary ---
Author Organization [facility] [place] Address [address] [place] [address] Care Team Providers Care Supervisor Patching Name Role Phone Elton De La Fuente MD Primary Care Provider [phone] Allergies Active Allergy Reactions Criticality Noted Date Comments Pseudoephedrine Other (See comments) Low 06/02/2021 shakey Medications methocarbamoL (ROBAXIN) 750 mg tablet Take 1 tablet (750 mg total) by mouth 3 (three) times a day Active oxyCODONE-acetamin ophen (PERCOCET) 5-325 mg per tabletIndications: Pain Take 1 tablet by mouth every 4 (four) hours as needed for pain 10 tablet 4 Active acetaminophen (TYLENOL) 325 mg tabletIndications: Fever,Pain Take 2 tablets (650 mg total) by mouth every 4 (four) hours as needed for pain 4 Active docusate sodium (COLACE) 100 mg capsuleIndications :constipation Take 1 capsule (100 mg total) by mouth 2 (two) times a day 4 Active nicotine (NICODERM CQ) [address] 1 patch on the skin daily 5 Active ondansetron ODT (ZOFRAN-ODT) 4 mg disintegrating tabletIndications: Nausea and Vomiting Take 1 tablet (4 mg total) by mouth every 6 (six) hours as needed for nausea or vomiting 4 Active cefdinir (OMNICEF) 300 mg capsule Take 1 capsule (300 mg total) by mouth 2 (two) times a day 5 Active pregabalin (LYRICA) 75 mg capsule Take 1 capsule (75 mg total) by mouth 2 (two) times a day 6 capsule 5 Active cefTRIAXone (ROCEPHIN) syringeIndications :Skin/Soft Tissue Infection Infuse 20 mL (2,000 mg total) into a venous catheter daily 10/31/19 Active Problems Problem Noted Date Diagnosed Date Wound infection 09/18/2024 Cellulitis 09/18/2024 Lumbar stenosis with neurogenic claudication Emphysema lung 07/23/2024 Tobacco use 07/23/2024 Encounters Date Type Department Care Team Description 10/17/2024 8:34 AM MANAGER MEDICARE - 10/17/2024 11:59 PM MANAGER MEDICARE Hospital Encounter [facility] - Interventional Radiology [address] [place] [address] [phone] Infection following a procedure, other surgical site, subsequent encounter Discharge Disposition: Discharge to home or self care 09/19/2024 10:31 AM MANAGER MEDICARE Anesthesia Event [facility] Operating Room [address] [place] [phone] Stephenie Rodriguez DO Tynes, Jessika Olegovna, CRNA 09/19/2024 10:03 AM MANAGER MEDICARE - 09/19/2024 12:08 PM MANAGER MEDICARE Surgery [facility] Operating Room [address] [place] [address] [phone] Kevin Brody MD INCISION AND DRAINAGE - LUMBAR 09/18/2024 7:53 PM MANAGER MEDICARE - 10/05/2024 11:00 AM MANAGER MEDICARE Hospital Encounter [facility] [address] [place] [address] [phone] Kita Astudillo MD Willis, MD Enoc Schroeder, MD Yessica Vigil Fatima A., MD Alkaade, Saad, MD Hammes, MD Good Chapman Renu, MD Wound infection (Primary Dx); Cellulitis of other specified site; Cellulitis, unspecified cellulitis site [L03.90]; Lumbar stenosis with neurogenic claudication [M48.062] Discharge Disposition: Discharge to home or self care 09/18/2024 Orders Only [address] [phone] Kita Astudillo MD 09/17/2024 Patient Self-Triage [facility] [address] [place] [address] Mychart, Generic Provider 08/13/2024 7:30 AM MANAGER MEDICARE - 08/13/2024 12:30 PM MANAGER MEDICARE Surgery [facility] Operating Room [address] [place] [phone] Kevin Brody MD L3-5 Decompressive Laminectomy, Posterior Lumbar Interbody Fusion using Zavation EZ Span Cage, Mathew Screws, Local Autograph and L4-5 Repeat Discectomy 08/13/2024 7:26 AM MANAGER MEDICARE Anesthesia Event [facility] Operating Room [address] [place] [address] [phone] Jason Christianson MD Salameh, Besan Mohammed, PA 08/13/2024 5:41 AM MANAGER MEDICARE - 08/14/2024 12:58 PM MANAGER MEDICARE Hospital Encounter [address] [phone] Kevin Brody MD Pseudoclaudication syndrome Discharge Disposition: Discharge to home or self care 08/13/2024 Orders Only [facility] Operating Room [address] [place] [phone] Kevin Brody MD from Last 3 Months Immunizations Name Administration [...] 0.6 oz pur e alcohol) Recovering alcoholic-whiskey [facility] Utilities Answer Date Recorded In the past 12 months has e electric, gas, oil, or water company threatened to [...] often do you attend chur ch or rastafarian services? Never 09/19/2024 Do you belong to any clubs o r organizations such as congregational groups, unions, fraternal or athletic groups, or [...] any time in the past 12 m [facility], were you homeless or living in a prison (including now)? No 09/19/2024 Personal Safety Answer Date Recorded Have you ever been in or are you currently in a harmful physical or emotional relationship or is someone making you feel afraid or unsafe? 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 Not on file Not on file Not on file Obstetrics History Last Filed Vital Signs Vital Sign Reading Time Taken Comments Blood Pressure 173/100 10/17/2024 9:20 AM MANAGER MEDICARE Pulse 69 10/17/2024 9:20 AM MANAGER MEDICARE Temperature 37.3 C (99.1 F) 10/17/2024 8:45 AM MANAGER MEDICARE Respiratory Rate 16 10/17/2024 9:20 AM MANAGER MEDICARE Oxygen Saturation 95% 10/17/2024 9:20 AM MANAGER MEDICARE Inhaled Oxygen Concentration - - Weight 87.1 kg (192 lb) 10/17/2024 8:45 AM MANAGER MEDICARE Height 182.9 cm (6') 10/17/2024 8:45 AM MANAGER MEDICARE Body Mass Index 26.04 10/17/2024 8:45 AM MANAGER MEDICARE Plan of Treatment Health Maintenance Due Date [...] Completed 09/21/2024 Medical Devices Implanted Type Area Corporate Attorney Device Identifier Shelf Expiration Date Model / Serial / Lot Biocomposites Stimulan Rapid Cure Kit Paste Hybrid Car Mechanic 5cc 12.5cc Bone Void 620-005 - [id number] Implanted:Qty: 1 on 08/13/2024 by Kevin Brody MD at [facility] N/A: Spine Lumbar Biocomposites [id number] 04/24/2027 620-005 / / [id number] [employer] Cage Spinal Lumbar 10 Degree Tlif Expandable 7-11.5mm Titanium [id number] - [id number] Implanted:Qty: 2 on 08/13/2024 by Kevin Brody MD at [facility] N/A: Spine Lumbar [employer] [id number] 10 / / Amina Spine 4.5mm 35mm Polyaxial Spine Screw Bone Deformity [id number] - [id number] Implanted:Qty: 6 on 08/13/2024 by Kevin Brody MD at [facility] N/A: Spine Lumbar Amina Spine [id number] 5 / / Lookeba Spine 4.5mm 75mm Contour Ulises Spinal Cocr [id number] - [id number] Implanted:Qty: 2 on 08/13/2024 by Kevin Brody MD at [facility] N/A: Spine Lumbar Lookeba Spine [id number] / / Amina Spine 26mm Semiadjustable Transverse Spine Connector Ulises Posterior [id number] - [id number] Implanted:Qty: 1 on 08/13/2024 by Kevin Brody MD at [facility] N/A: Spine Lumbar Amina Spine [id number] 6A / / Lookeba Spine 32mm Semiadjustable Transverse Spine Connector Ulises Posterior [id number] - [id number] Implanted:Qty: 1 on 08/13/2024 by Kevin Brody MD at [facility] N/A: Spine Lumbar Lookeba Spine [id number] 2A / / Procedures Procedure Name Priority Date/Time Associated Diagnosis Comments IR PICC LINE PLACEMENT > 5 YEARS Schedule Routine, Read Routine (OP Routine) 10/17/2024 9:26 AM MANAGER MEDICARE Infection following a procedure, other surgical site, subsequent encounter EGFR Routine 09/28/2024 5:42 AM MANAGER MEDICARE RENAL FUNCTION PANEL Routine 09/28/2024 5:42 AM MANAGER MEDICARE EGFR Routine 09/27/2024 4:57 AM MANAGER MEDICARE RENAL FUNCTION PANEL Routine 09/27/2024 4:57 AM MANAGER MEDICARE EGFR Routine 09/26/2024 5:36 AM MANAGER MEDICARE RENAL FUNCTION PANEL Routine 09/26/2024 5:36 AM MANAGER MEDICARE EGFR Routine 09/25/2024 5:49 AM MANAGER MEDICARE RENAL FUNCTION PANEL Routine 09/25/2024 5:49 AM MANAGER MEDICARE EGFR Routine 09/24/2024 7:50 AM MANAGER MEDICARE RENAL FUNCTION PANEL Routine 09/24/2024 7:50 AM MANAGER MEDICARE CBC WITHOUT DIFFERENTIAL Routine 09/24/2024 7:50 AM MANAGER MEDICARE DRUGS OF ABUSE SCREEN, URINE WITHOUT CONFIRMATION Routine 09/23/2024 6:26 PM MANAGER MEDICARE EGFR Routine 09/23/2024 6:17 AM MANAGER MEDICARE RENAL FUNCTION PANEL Routine 09/23/2024 6:17 AM MANAGER MEDICARE CBC WITHOUT DIFFERENTIAL Routine 09/23/2024 6:17 AM MANAGER MEDICARE XR CHEST 1 VIEW ED Urgent/IP Urgent 09/22/2024 12:[address] INSJ NON-TUNNELED CENTRAL VENOUS CATH AGE 5 YR/> Routine 09/22/2024 11:15 AM MANAGER MEDICARE Wound infection EGFR Routine 09/22/2024 8:12 AM MANAGER MEDICARE RENAL FUNCTION PANEL Routine 09/22/2024 8:12 AM MANAGER MEDICARE CBC WITHOUT DIFFERENTIAL Routine 09/22/2024 8:12 AM MANAGER MEDICARE EGFR Routine 09/21/2024 6:09 AM MANAGER MEDICARE RENAL FUNCTION PANEL Routine 09/21/2024 6:09 AM MANAGER MEDICARE CBC WITHOUT DIFFERENTIAL Routine 09/21/2024 6:09 AM MANAGER MEDICARE VANCOMYCIN LEVEL TROUGH Timed 09/20/2024 5:36 PM MANAGER MEDICARE CBC WITHOUT DIFFERENTIAL Routine 09/20/2024 5:58 AM MANAGER MEDICARE MYCOLOGY (FUNGAL) CULTURE Routine 09/19/2024 11:08 AM MANAGER MEDICARE TISSUE AEROBIC AND ANAEROBIC CULTURE AND GRAM STAIN Routine 09/19/2024 11:08 AM MANAGER MEDICARE MYCOLOGY (FUNGAL) CULTURE Routine 09/19/2024 11:07 AM MANAGER MEDICARE AEROBIC AND ANAEROBIC CULTURE AND GRAM STAIN Routine 09/19/2024 11:07 AM MANAGER MEDICARE MYCOLOGY (FUNGAL) CULTURE Routine 09/19/2024 11:07 AM MANAGER MEDICARE AEROBIC AND ANAEROBIC CULTURE AND GRAM STAIN Routine 09/19/2024 11:[address] AN PROCEDURE PLACEHOLDER Routine 09/19/2024 10:[address] AN ELECTIVE ENDOTRACHEAL AIRWAY Routine 09/19/2024 10:49 AM MANAGER MEDICARE INCISION AND DRAINAGE - BACK 09/19/2024 10:30 AM MANAGER MEDICARE LUMBAR WOUND INFECTION DIFFERENTIAL AUTO Routine 09/19/2024 1:1 9 AM MANAGER MEDICARE CBC WITH AUTO DIFFERENTIAL Routine 09/19/2024 1:19 AM MANAGER MEDICARE EGFR Routine 09/19/2024 12:55 AM MANAGER MEDICARE COMPREHENSIVE METABOLIC PANEL Routine 09/19/2024 12:55 AM MANAGER MEDICARE BLOOD CULTURE Routine 09/19/2024 12:55 AM MANAGER MEDICARE BLOOD CULTURE Routine 09/19/2024 12:55 AM MANAGER MEDICARE CBC WITHOUT DIFFERENTIAL Routine 08/14/2024 7:13 AM MANAGER MEDICARE SURGICAL PATHOLOGY Routine 08/13/2024 11 :16 AM MANAGER MEDICARE FL FLUOROSCOPY < 1 HOUR IP Routine 08/13/2024 11:08 AM MANAGER MEDICARE XR SPINE LUMBAR 2 OR 3 VIEWS IP Routine 08/13/2024 11:[address] AN PROCEDURE PLACEHOLDER Routine 08/13/2024 7:[address] AN ELECTIVE ENDOTRACHEAL AIRWAY Routine 08/13/2024 7:59 AM MANAGER MEDICARE FUSION LUMBAR - POSTERIOR 2 LEVELS 08/13/2024 7:30 AM MANAGER MEDICARE Pseudoclaudicatio n syndrome B CHECK SAMPLE STAT 08/13/2024 6:59 AM MANAGER MEDICARE from Last 3 Months Results * IR PICC Line Placement Over 5 Years of Age (10/17/2024 9:26 AM MANAGER MEDICARE) Anatomical Region Laterality Modality Body N/A X-Ray Angiograph y 10/17/2024 10:2 5 AM MANAGER MEDICARE Impressions 10/17/2024 10:25 AM MANAGER MEDICARE Successful nontunneled catheter placement. PLAN: The catheter is ready for immediate use. When treatment is completed, this catheter can be removed at the bedside according to standard hospital protocol. Electronically signed by: Patrica Garnica PA-C Narrative 10/17/2024 10:25 AM MANAGER MEDICARE EXAMINATION: NONTUNNELED CENTRAL VENOUS CATHETER PLACEMENT (STD) [...] was obtained. Prior to beginning the procedure, [place] Protocol was used to confirm the patient's [...] the cavoatrial junction. No complications are seen. Procedure Note Patrica Garnica [...] was obtained. Prior to beginning the procedure, [place] Protocol was used to confirm the patient's [...] al Result * eGFR (09/28/2024 5:42 AM MANAGER MEDICARE) eGFR >90 >=60 mL/min/1. 73 m2 Comment: Interpretive Data Reference Interval Normal >/= 90 mL/min/1.73m2 Mildly decreased* 60 - 89 mL/min/1.73m2 Mildly to moderately decreased 45 - 59 mL/min/1.73m2 Moderately to severely decreased 30 - 44 mL/min/1.73m2 Severely decreased 15 - 29 mL/min/1.73m2 Kidney Failure < 15 mL/min/1.73m2 *Relative to young adult level Estimated glomerular [...] last reviewed 2021. Blood 09/28/2024 5:42 AM MANAGER MEDICARE 09/28/2024 5:54 AM MANAGER MEDICARE us Mitchell Grajeda MD LAB BLOOD ORDERABLES Final R esult [facility] [address] Department [place] [address] * (ABNORMAL) Renal function panel (09/28/2024 5:42 AM MANAGER MEDICARE) [facility] Sodium 139 135 - 145 mmol/L Potassium, pl 4.1 3.3 - 4.9 mmol/L [facility] Chloride 99 97 - 110 mmol/L [facility] CO2 27 22 - 32 mmol/L [facility] Anion gap 13 2 - 15 mmol/L [facility] BUN 15 6 - 25 mg/dL [facility] Creatinine 0.78(L) 0.80 - 1.30 mg/dL [facility] Glucose 108 70 - 199 mg/dL [facility] Comment: Interpretive Data Fasting glucose >/= 126 mg/dl is diagnostic for diabetes. Fasting is defined as no caloric intake [...] 2022. Calcium 9.1 8.5 - 10.3 mg/dL [facility] Phosphorus, pl 4.2 2.3 - 4.5 mg/dL [facility] Albumin 4.0 3.5 - 5.0 g/dL [facility] Blood 09/28/2024 5:42 AM MANAGER MEDICARE 09/28/2024 5:54 AM MANAGER MEDICARE us Mitchell Grajeda MD LAB BLOOD ORDERABLES Final R esult [facility] [address] Department [place] [address] * eGFR (09/27/2024 4:57 AM MANAGER MEDICARE) eGFR >90 >=60 mL/min/1. 73 m2 Comment: Interpretive Data Reference Interval Normal >/= 90 mL/min/1.73m2 Mildly decreased* 60 - 89 mL/min/1.73m2 Mildly to moderately decreased 45 - 59 mL/min/1.73m2 Moderately to severely decreased 30 - 44 mL/min/1.73m2 Severely decreased 15 - 29 mL/min/1.73m2 Kidney Failure < 15 mL/min/1.73m2 *Relative to young adult level Estimated glomerular [...] last reviewed 2021. Blood 09/27/2024 4:57 AM MANAGER MEDICARE 09/27/2024 5:20 AM MANAGER MEDICARE Mitchell Grajeda MD LAB BLOOD ORDERABLES Final R esult Performing Organization Address City/[facility]/ZIP Co de Phone Number [facility] [address] [place] [address] * (ABNORMAL) Renal function panel (09/27/2024 4:57 AM MANAGER MEDICARE) Sodium 143 135 - 145 mmol/L Potassium, pl 4.1 3.3 - 4.9 mmol/L [facility] Chloride 103 97 - 110 mmol/L [facility] CO2 28 22 - 32 mmol/L [facility] Anion gap 12 2 - 15 mmol/L [facility] BUN 15 6 - 25 mg/dL [facility] Creatinine 0.77(L) 0.80 - 1.30 mg/dL [facility] Glucose 91 70 - 199 mg/dL [facility] Comment: Interpretive Data Fasting glucose >/= 126 mg/dl is diagnostic for diabetes. Fasting is defined as no caloric intake [...] 2022. Calcium 9.4 8.5 - 10.3 mg/dL [facility] Phosphorus, pl 4.4 2.3 - 4.5 mg/dL [facility] Albumin 3.9 3.5 - 5.0 g/dL [facility] Blood 09/27/2024 4:57 AM MANAGER MEDICARE 09/27/2024 5:20 AM MANAGER MEDICARE Mitchell Grajeda MD LAB BLOOD ORDERABLES Final R esult Performing Organization Address City/[facility]/ZIP Co de Phone Number [facility] [address] [place] [address] * eGFR (09/26/2024 5:36 AM MANAGER MEDICARE) [facility] eGFR >90 >=60 mL/min/1. 73 m2 Comment: Interpretive Data Reference Interval Normal >/= 90 mL/min/1.73m2 Mildly decreased* 60 - 89 mL/min/1.73m2 Mildly to moderately decreased 45 - 59 mL/min/1.73m2 Moderately to severely decreased 30 - 44 mL/min/1.73m2 Severely decreased 15 - 29 mL/min/1.73m2 Kidney Failure < 15 mL/min/1.73m2 *Relative to young adult level Estimated glomerular [...] last reviewed 2021. Blood 09/26/2024 5:36 AM MANAGER MEDICARE 09/26/2024 6:05 AM MANAGER MEDICARE us Mitchell Grajeda MD LAB BLOOD ORDERABLES Final R esult [facility] [address] Department [place] [address] * (ABNORMAL) Renal function panel (09/26/2024 5:36 AM MANAGER MEDICARE) [facility] Sodium 139 135 - 145 mmol/L Potassium, pl 4.0 3.3 - 4.9 mmol/L [facility] Chloride 99 97 - 110 mmol/L [facility] CO2 28 22 - 32 mmol/L [facility] Anion gap 12 2 - 15 mmol/L [facility] BUN 14 6 - 25 mg/dL [facility] Creatinine 0.73(L) 0.80 - 1.30 mg/dL [facility] Glucose 95 70 - 199 mg/dL [facility] Comment: Interpretive Data Fasting glucose >/= 126 mg/dl is diagnostic for diabetes. Fasting is defined as no caloric intake [...] 2022. Calcium 9.1 8.5 - 10.3 mg/dL [facility] Phosphorus, pl 4.3 2.3 - 4.5 mg/dL [facility] Albumin 4.0 3.5 - 5.0 g/dL [facility] Blood 09/26/2024 5:36 AM MANAGER MEDICARE 09/26/2024 6:05 AM MANAGER MEDICARE us Mitchell Grajeda MD LAB BLOOD ORDERABLES Final R esult [facility] [address] Department [place] [address] * eGFR (09/25/2024 5:49 AM MANAGER MEDICARE) eGFR >90 >=60 mL/min/1. 73 m2 Comment: Interpretive Data Reference Interval Normal >/= 90 mL/min/1.73m2 Mildly decreased* 60 - 89 mL/min/1.73m2 Mildly to moderately decreased 45 - 59 mL/min/1.73m2 Moderately to severely decreased 30 - 44 mL/min/1.73m2 Severely decreased 15 - 29 mL/min/1.73m2 Kidney Failure < 15 mL/min/1.73m2 *Relative to young adult level Estimated glomerular [...] last reviewed 2021. Blood 09/25/2024 5:49 AM MANAGER MEDICARE 09/25/2024 6:01 AM MANAGER MEDICARE Mitchell Grajeda MD LAB BLOOD ORDERABLES Final R esult Performing Organization Address City/[facility]/ZIP Co de Phone Number [facility] [address] Department [place] [address] * (ABNORMAL) Renal function panel (09/25/2024 5:49 AM MANAGER MEDICARE) Pathologist [facility] Sodium 142 135 - 145 mmol/L Potassium, pl 3.9 3.3 - 4.9 mmol/L [facility] Chloride 103 97 - 110 mmol/L [facility] CO2 29 22 - 32 mmol/L [facility] Anion gap 10 2 - 15 mmol/L [facility] BUN 10 6 - 25 mg/dL [facility] Creatinine 0.70(L) 0.80 - 1.30 mg/dL [facility] Glucose 88 70 - 199 mg/dL [facility] Comment: Interpretive Data Fasting glucose >/= 126 mg/dl is diagnostic for diabetes. Fasting is defined as no caloric intake [...] 2022. Calcium 8.8 8.5 - 10.3 mg/dL [facility] Phosphorus, pl 4.1 2.3 - 4.5 mg/dL [facility] Albumin 3.7 3.5 - 5.0 g/dL [facility] Blood 09/25/2024 5:49 AM MANAGER MEDICARE 09/25/2024 6:01 AM MANAGER MEDICARE Mitchell Grajeda MD LAB BLOOD ORDERABLES Final R esult [facility] [address] Department [place] [address] * eGFR (09/24/2024 7:50 AM MANAGER MEDICARE) Pathologist [facility] eGFR >90 >=60 mL/min/1. 73 m2 Comment: Interpretive Data Reference Interval Normal >/= 90 mL/min/1.73m2 Mildly decreased* 60 - 89 mL/min/1.73m2 Mildly to moderately decreased 45 - 59 mL/min/1.73m2 Moderately to severely decreased 30 - 44 mL/min/1.73m2 Severely decreased 15 - 29 mL/min/1.73m2 Kidney Failure < 15 mL/min/1.73m2 *Relative to young adult level Estimated glomerular [...] last reviewed 2021. Blood 09/24/2024 7:50 AM MANAGER MEDICARE 09/24/2024 8:09 AM MANAGER MEDICARE us Mitchell Grajeda MD LAB BLOOD ORDERABLES Final R esult Performing Organization Address [facility] Co de Phone Number [facility] [address] Department [place] [address] * (ABNORMAL) CBC without differential (09/24/2024 7:50 AM MANAGER MEDICARE) Pathologist [facility] WBC 11.4(H) 3.8 - 9.9 K/cumm Hgb 13.0 13.0 - 17.5 g/dL [facility] Hct 40.2 38.9 - 50.3 % [facility] Plt 280 150 - 400 K/cumm [facility] MPV 10.8 9.1 - 12.3 fL [facility] RBC 4.40 4.30 - 5.80 M/cumm [facility] MCV 91.4 81.3 - 96.4 fL [facility] MCH 29.5 27.1 - 33.3 pg [facility] MCHC 32.3 32.3 - 35.7 g/dL [facility] RDW CV 13.0 11.1 - 14.9 % [facility] RDW SD 43.6 35.7 - 48.1 fL [facility] NRBC abs 0.00 0.00 - 0.01 K/cumm [facility] Blood 09/24/2024 7:50 AM MANAGER MEDICARE 09/24/2024 8:10 AM MANAGER MEDICARE us Kevin Brody MD LAB BLOOD ORDERABLES Suzie gutierrez Result [facility] [address] Department [place] [address] * (ABNORMAL) Renal function panel (09/24/2024 7:50 AM MANAGER MEDICARE) Sodium 141 135 - 145 mmol/L Potassium, pl 4.0 3.3 - 4.9 mmol/L [facility] Chloride 101 97 - 110 mmol/L [facility] CO2 28 22 - 32 mmol/L [facility] Anion gap 12 2 - 15 mmol/L [facility] BUN 13 6 - 25 mg/dL [facility] Creatinine 0.75(L) 0.80 - 1.30 mg/dL [facility] Glucose 154 70 - 199 mg/dL [facility] Comment: Interpretive Data Fasting glucose >/= 126 mg/dl is diagnostic for diabetes. Fasting is defined as no caloric intake [...] 2022. Calcium 9.0 8.5 - 10.3 mg/dL [facility] Phosphorus, pl 3.7 2.3 - 4.5 mg/dL [facility] Albumin 3.9 3.5 - 5.0 g/dL [facility] Blood 09/24/2024 7:50 AM MANAGER MEDICARE 09/24/2024 8:09 AM MANAGER MEDICARE us Mitchell Grajeda MD LAB BLOOD ORDERABLES Final R esult [facility] [address] Department [place] [address] * (ABNORMAL) Drugs of Abuse Screen, Urine without Confirmation (09/23/2024 6:26 PM MANAGER MEDICARE) Pathologist [facility] Amphetamine, ur Not Detected CutOff 500ng/mL Comment: Interpretive Data - Amphetamines: Samples containing greater than 500 ng/mL d-methamphetamine or other cross-reacting amphetamine compounds are reported as positive. Amphetamine immunoassays are subject to significant false positive rates due to cross-reactivity of non-amphetamine drugs. Confirmatory testing required for definitive results. Current Interpretive Data was last reviewed 2023. Barbiturates, ur Not Detected CutOff 200ng/mL [facility] Comment: Interpretive Data - Barbiturates: Samples containing greater than 200 ng/mL secobarbital or other cross-reacting barbiturate compounds are reported as positive. False positive and false negative results are possible. Confirmatory testing required for definitive results. Current Interpretive Data was last reviewed 2023. Benzodiazepines, ur Screen Positive, presumptive (A) CutOff 100ng/mL [facility] Comment: Interpretive Data - Benzodiazepines: Samples containing greater than 100 ng/mL nordiazepam or other cross-reacting compounds are reported as positive. False positive and false negative results are possible. Confirmatory testing required for definitive results. Current Interpretive Data was last reviewed 2023. Cannabinoids, ur Not Detected CutOff 50 ng/mL [facility] Comment: Interpretive Data - Cannabinoids: Samples containing greater than 50 ng/mL delta-9 THC -COOH or other cross- reacting compounds are reported as positive. False positive and false negative results are possible. Confirmatory testing required for definitive results. Current Interpretive Data was last reviewed 2023. Cocaine, ur Not Detected CutOff 150ng/mL [facility] Comment: Interpretive Data - Cocaine: Samples containing greater than 150 ng/mL benzoylecgonine or other cross- reacting compounds are reported as positive. False positive and false negative results are possible. Confirmatory testing required for definitive results. Current Interpretive Data was last reviewed 2023. Fentanyl, Ur Not Detected CutOff 5 ng/mL [facility] Comment: Interpretive Data - Fentanyl: Samples containing greater than 5 ng/mL norfentanyl, fentanyl, or other cross-reacting fentanyl compounds are reported as positive. False positive and false negative results are possible. Confirmatory testing required for definitive results. Current Interpretive Data was last reviewed 2023. Methadone, ur Not Detected CutOff 300ng/mL [facility] Comment: Interpretive Data - Methadone: Samples containing greater than 300 ng/mL d,l-methadone or other cross-reacting compounds are reported as positive. False positive and false negative results are possible. Confirmatory testing required for definitive results. Current Interpretive Data was last reviewed 2023. Opiates, ur Not Detected CutOff 300ng/mL [facility] Comment: Interpretive Data - Opiates: Samples containing greater than 300 ng/mL morphine or other cross-reacting compounds are reported as positive. False positive and false negative results are possible. Confirmatory testing required for definitive results. Current Interpretive Data was last reviewed 2023. Oxycodone, ur Screen Positive, presumptive (A) CutOff 100ng/mL [facility] Comment: Interpretive Data - Oxycodone: Samples containing greater than 100 ng/mL oxycodone or other cross-reacting compounds are reported as positive. False positive and false negative results are possible. Confirmatory testing required for definitive results. Current Interpretive Data was last reviewed 2023. Phencyclidine, ur Not Detected CutOff 25 ng/mL [facility] Comment: Interpretive Data - Phencyclidine: Samples containing greater than 25 ng/mL phencyclidine or other cross-reacting compounds are reported as positive. False positive and false negative results are possible. Confirmatory testing required for definitive results. Current Interpretive Data was last reviewed 2023. Urine Creatinine 87 mg/dL [facility] Comment: Interpretive Data Urine Creatinine: < 10 mg/dL is extremely dilute = or > 10 but < 20 mg/dL is dilute = or > 20 mg/dL is normal Current Interpretive Data was last revised on 2017. Urine 09/23/2024 6:26 PM MANAGER MEDICARE 09/23/2024 6:33 PM MANAGER MEDICARE Narrative [facility] - 09/23/2024 7:11 PM MANAGER MEDICARE Drug of Abuse screening is performed by immunoassay for medical purposes only. This is not to be used for Pain Management purposes. us Jovany Stubbs MD LAB URINE ORDERABLES Final Result Performing Organization Address [facility] Co de Phone Number [facility] [address] [place] [address] * eGFR (09/23/2024 6:17 AM MANAGER MEDICARE) eGFR >90 >=60 mL/min/1. 73 m2 Comment: Interpretive Data Reference Interval Normal >/= 90 mL/min/1.73m2 Mildly decreased* 60 - 89 mL/min/1.73m2 Mildly to moderately decreased 45 - 59 mL/min/1.73m2 Moderately to severely decreased 30 - 44 mL/min/1.73m2 Severely decreased 15 - 29 mL/min/1.73m2 Kidney Failure < 15 mL/min/1.73m2 *Relative to young adult level Estimated glomerular [...] last reviewed 2021. Blood 09/23/2024 6:17 AM MANAGER MEDICARE 09/23/2024 6:34 AM MANAGER MEDICARE Mitchell Grajeda MD LAB BLOOD ORDERABLES Final R esult Performing Organization Address City/[facility]/ZIP Co de Phone Number [facility] [address] Department [place] [address] * (ABNORMAL) CBC without differential (09/23/2024 6:17 AM MANAGER MEDICARE) [facility] WBC 8.7 3.8 - 9.9 K/cumm Hgb 12.7(L) 13.0 - 17.5 g/dL [facility] Hct 39.6 38.9 - 50.3 % [facility] Plt 244 150 - 400 K/cumm [facility] MPV 10.9 9.1 - 12.3 fL [facility] RBC 4.30 4.30 - 5.80 M/cumm [facility] MCV 92.1 81.3 - 96.4 fL [facility] MCH 29.5 27.1 - 33.3 pg [facility] MCHC 32.1(L) 32.3 - 35.7 g/dL [facility] RDW CV 13.0 11.1 - 14.9 % [facility] RDW SD 43.8 35.7 - 48.1 fL [facility] NRBC abs 0.00 0.00 - 0.01 K/cumm [facility] Blood 09/23/2024 6:17 AM MANAGER MEDICARE 09/23/2024 6:34 AM MANAGER MEDICARE us Kevin Brody MD LAB BLOOD ORDERABLES Suzie gutierrez Result [facility] [address] Department [place] [address] * (ABNORMAL) Renal function panel (09/23/2024 6:17 AM MANAGER MEDICARE) [facility] Sodium 141 135 - 145 mmol/L Potassium, pl 4.1 3.3 - 4.9 mmol/L [facility] Chloride 100 97 - 110 mmol/L [facility] CO2 30 22 - 32 mmol/L [facility] Anion gap 11 2 - 15 mmol/L [facility] BUN 10 6 - 25 mg/dL [facility] Creatinine 0.72(L) 0.80 - 1.30 mg/dL [facility] Glucose 95 70 - 199 mg/dL [facility] Comment: Interpretive Data Fasting glucose >/= 126 mg/dl is diagnostic for diabetes. Fasting is defined as no caloric intake [...] 2022. Calcium 8.7 8.5 - 10.3 mg/dL [facility] Phosphorus, pl 3.9 2.3 - 4.5 mg/dL [facility] Albumin 3.5 3.5 - 5.0 g/dL [facility] Blood 09/23/2024 6:17 AM MANAGER MEDICARE 09/23/2024 6:34 AM MANAGER MEDICARE us Mitchell Grajeda MD LAB BLOOD ORDERABLES Final R esult [facility] [address] Department [place] [address] * X-ray chest 1 view (Portable) (09/22/2024 12:05 PM MANAGER MEDICARE) Anatomical Region Laterality Modality Body, Chest N/A Computed Radiogr aphy 09/22/2024 12:4 0 PM MANAGER MEDICARE Impressions 09/22/2024 12:40 PM MANAGER MEDICARE Left upper extremity PICC tip in the mid SVC. Electronically signed by: Akil Cerda D.O. Narrative 09/22/2024 12:40 PM MANAGER MEDICARE EXAMINATION: XR CHEST 1 VIEW HISTORY: check line placement COMPARISON: Radiograph 03/30/2024 FINDINGS: Left upper extremity PICC tip in the mid SVC. Normal cardiomediastinal silhouette and pulmonary vasculature. No focal airspace opacity. No pneumothorax or large pleural effusion. No acute osseous abnormality. Procedure Note Akil CerdaDO - 09/22/2024 EXAMINATION: XR CHEST 1 VIEW [...] IMG XR PROCEDURES Fi nal Result * CT INSJ NON-TUNNELED CENTRAL VENOUS CATH AGE 5 YR/> (09/22/2024 11:15 AM MANAGER MEDICARE) Narrative Sue Steinberg PA - 09/22/2024 11:15 AM MANAGER MEDICARE Sue Steinberg PA 09/22/2024 11:46 AM PICC Line Insertion Date/Time: 09/22/2024 11:15 AM Performed by: Sue Steinberg PA Authorized by: Sue Steinberg PA [place] Protocol: RN Notified of Procedure: yes Informed consent: Risks, benefits, alternatives discussed and patient/accounts receivable representative/guardian agrees and accepts Patient's stated name/ matches armband: Yes Allergies confirmed: yes Consent form signed, dated, timed; matches correct patient, intended procedure and site: Yes Imaging: Pertinent imaging reviewed, correctly oriented and match to patient identifiers Supplies, devices and special equipment are available: yes Site/side marked: yes Immediately prior to the procedure a time out was called: a verbal verification by the procedure participants confirmed correct patient identity, correct site/side marked and visible (if applicable); agreement on procedure to be done; and correct patient positioning Indications: Vascular access (dx: post op SSI with abscess.) Anesthesia (see MAR for exact dosage) Anesthesia method: Local infiltration Local anesthetic: Lidocaine 1% Patient position: Flat Skin preparation: Skin prepped with 2% chlorhexidine Provider preparation: Cap, partial body drape, mask, handwashing, gown and gloves Location: LUE brachial vein. Ultrasound guidance: Sterile probe cover used, pre-procedure diagnostic and real-time needle guidance Assessment: Blood return through all ports, free fluid flow and placement verified by x-ray Catheter type: Double lumen Catheter placed through introducer: Transvenous (yes) Catheter size: 5 Fr Needle inserted, vein idenitified then guidewire inserted easily into vein: Yes Number of attempts: 1 Successful placement: Yes Catheter secured at (cm): 0 Catheter length (cm): 44 Line securement: Securement device and dressing applied Patient tolerance: Patient tolerated the procedure well with no immediate complications Post Procedure Debrief: All guidewires, needles, sponges or other items are accounted for: yes us Sue TAYLOR IN CLINIC/BEDSIDE OR DERABLES Final Result * eGFR (09/22/2024 8:12 AM MANAGER MEDICARE) eGFR >90 >=60 mL/min/1. 73 m2 Comment: Interpretive Data Reference Interval Normal >/= 90 mL/min/1.73m2 Mildly decreased* 60 - 89 mL/min/1.73m2 Mildly to moderately decreased 45 - 59 mL/min/1.73m2 Moderately to severely decreased 30 - 44 mL/min/1.73m2 Severely decreased 15 - 29 mL/min/1.73m2 Kidney Failure < 15 mL/min/1.73m2 *Relative to young adult level Estimated glomerular [...] last reviewed 2021. Blood 09/22/2024 8:12 AM MANAGER MEDICARE 09/22/2024 8:51 AM MANAGER MEDICARE us Mitchell Grajeda MD LAB BLOOD ORDERABLES Final R esult [facility] [address] Department [place] [address] * CBC without differential (09/22/2024 8:12 AM MANAGER MEDICARE) [facility] WBC 8.5 3.8 - 9.9 K/cumm Hgb 13.6 13.0 - 17.5 g/dL [facility] Hct 41.9 38.9 - 50.3 % [facility] Plt 241 150 - 400 K/cumm [facility] MPV 11.4 9.1 - 12.3 fL [facility] RBC 4.59 4.30 - 5.80 M/cumm [facility] MCV 91.3 81.3 - 96.4 fL [facility] MCH 29.6 27.1 - 33.3 pg [facility] MCHC 32.5 32.3 - 35.7 g/dL [facility] RDW CV 13.0 11.1 - 14.9 % [facility] RDW SD 43.8 35.7 - 48.1 fL [facility] NRBC abs 0.00 0.00 - 0.01 K/cumm [facility] Blood 09/22/2024 8:12 AM MANAGER MEDICARE 09/22/2024 8:52 AM MANAGER MEDICARE us Kevin Brody MD LAB BLOOD ORDERABLES Suzie l Result [facility] [address] Department [place] [address] * (ABNORMAL) Renal function panel (09/22/2024 8:12 AM MANAGER MEDICARE) [facility] Sodium 143 135 - 145 mmol/L Potassium, pl 3.7 3.3 - 4.9 mmol/L [facility] Chloride 100 97 - 110 mmol/L [facility] CO2 31 22 - 32 mmol/L [facility] Anion gap 12 2 - 15 mmol/L [facility] BUN 9 6 - 25 mg/dL [facility] Creatinine 0.77(L) 0.80 - 1.30 mg/dL [facility] Glucose 144 70 - 199 mg/dL [facility] Comment: Interpretive Data Fasting glucose >/= 126 mg/dl is diagnostic for diabetes. Fasting is defined as no caloric intake [...] 2022. Calcium 9.3 8.5 - 10.3 mg/dL [facility] Phosphorus, pl 4.6(H) 2.3 - 4.5 mg/dL [facility] Albumin 4.1 3.5 - 5.0 g/dL [facility] Blood 09/22/2024 8:12 AM MANAGER MEDICARE 09/22/2024 8:51 AM MANAGER MEDICARE us Mitchell Grajeda MD LAB BLOOD ORDERABLES Final R esult [facility] [address] Department [place] [address] * eGFR (09/21/2024 6:09 AM MANAGER MEDICARE) eGFR >90 >=60 mL/min/1. 73 m2 Comment: Interpretive Data Reference Interval Normal >/= 90 mL/min/1.73m2 Mildly decreased* 60 - 89 mL/min/1.73m2 Mildly to moderately decreased 45 - 59 mL/min/1.73m2 Moderately to severely decreased 30 - 44 mL/min/1.73m2 Severely decreased 15 - 29 mL/min/1.73m2 Kidney Failure < 15 mL/min/1.73m2 *Relative to young adult level Estimated glomerular [...] last reviewed 2021. Blood 09/21/2024 6:09 AM MANAGER MEDICARE 09/21/2024 7:01 AM MANAGER MEDICARE us Mitchell Grajeda MD LAB BLOOD ORDERABLES Final R esult Performing Organization Address [facility]/ZIP Co de Phone Number [facility] [address] [place], [place] [id number] * (ABNORMAL) CBC without differential (09/21/2024 6:09 AM MANAGER MEDICARE) Pathologist [facility] WBC 8.8 3.8 - 9.9 K/cumm Hgb 11.7(L) 13.0 - 17.5 g/dL [facility] Hct 36.0(L) 38.9 - 50.3 % [facility] Plt 162 150 - 400 K/cumm [facility] MPV 12.0 9.1 - 12.3 fL [facility] RBC 3.93(L) 4.30 - 5.80 M/cumm [facility] MCV 91.6 81.3 - 96.4 fL [facility] MCH 29.8 27.1 - 33.3 pg [facility] MCHC 32.5 32.3 - 35.7 g/dL [facility] RDW CV 13.0 11.1 - 14.9 % [facility] RDW SD 44.1 35.7 - 48.1 fL [facility] NRBC abs 0.00 0.00 - 0.01 K/cumm [facility] Blood 09/21/2024 6:09 AM MANAGER MEDICARE 09/21/2024 7:01 AM MANAGER MEDICARE us Kevin Brody MD LAB BLOOD ORDERABLES Suzie l Result [facility] [address] [place] [address] * (ABNORMAL) Renal function panel (09/21/2024 6:09 AM MANAGER MEDICARE) Pathologist [facility] Sodium 143 135 - 145 mmol/L Potassium, pl 3.5 3.3 - 4.9 mmol/L [facility] Chloride 105 97 - 110 mmol/L [facility] CO2 26 22 - 32 mmol/L [facility] Anion gap 12 2 - 15 mmol/L [facility] BUN 10 6 - 25 mg/dL [facility] Creatinine 0.70(L) 0.80 - 1.30 mg/dL [facility] Glucose 102 70 - 199 mg/dL [facility] Comment: Interpretive Data Fasting glucose >/= 126 mg/dl is diagnostic for diabetes. Fasting is defined as no caloric intake [...] 2022. Calcium 8.6 8.5 - 10.3 mg/dL [facility] Phosphorus, pl 3.6 2.3 - 4.5 mg/dL [facility] Albumin 3.3(L) 3.5 - 5.0 g/dL [facility] Blood 09/21/2024 6:09 AM MANAGER MEDICARE 09/21/2024 7:01 AM MANAGER MEDICARE Mitchell Grajeda MD LAB BLOOD ORDERABLES Final R esult [facility] [address] Department [place] [address] * (ABNORMAL) Vancomycin level trough Please draw trough at this specific time. (09/20/2024 5:36 PM MANAGER MEDICARE) Vancomycin trough 7.4(L) 10.0 - 20.0 mcg/mL Blood 09/20/2024 5:36 PM MANAGER MEDICARE 09/20/2024 5:40 PM MANAGER MEDICARE Narrative [facility] - 09/20/2024 6:00 PM MANAGER MEDICARE Please draw trough at this specific time. us Mitchell Grajeda MD LAB BLOOD ORDERABLES Final R esult Performing Organization Address [facility]/ZIP Co de Phone Number [facility] [address] [place] [address] * (ABNORMAL) CBC without differential (09/20/2024 5:58 AM MANAGER MEDICARE) WBC 17.4(H) 3.8 - 9.9 K/cumm Hgb 12.8(L) 13.0 - 17.5 g/dL [facility] Hct 40.4 38.9 - 50.3 % [facility] Plt 174 150 - 400 K/cumm [facility] MPV 12.4(H) 9.1 - 12.3 fL [facility] RBC 4.37 4.30 - 5.80 M/cumm [facility] MCV 92.4 81.3 - 96.4 fL [facility] MCH 29.3 27.1 - 33.3 pg [facility] MCHC 31.7(L) 32.3 - 35.7 g/dL [facility] RDW CV 12.9 11.1 - 14.9 % [facility] RDW SD 44.1 35.7 - 48.1 fL [facility] NRBC abs 0.00 0.00 - 0.01 K/cumm [facility] Blood 09/20/2024 5:58 AM MANAGER MEDICARE 09/20/2024 6:35 AM MANAGER MEDICARE Kevin Brody MD LAB BLOOD ORDERABLES Suzie l Result Performing Organization Address [facility]/ZIP Co de Phone Number [facility] [address] [place] [address] * (ABNORMAL) Tissue aerobic and anaerobic culture and gram stain Tissue Back, lower (09/19/2024 11:08AM MANAGER MEDICARE) Direct Specimen Exam Stain: No polymorphonuclear leukocytes seen. No organisms seen. Report Final Report: Very light growth Staphylococcus aureus, methicillin susceptible (.) [facility] Organism STAPHYLOCOCCUS AUREUS, METHICILLIN SUSCEPTIBLE [facility] Tissue (Back, lower) 09/19/2024 11:08 AM MANAGER MEDICARE 09/19/2024 12:11 PM MANAGER MEDICARE [place] [facility] - 09/22/2024 9:51 AM MANAGER MEDICARE Deep Tissue Organism Antibiotic Method Susceptibility Staphylococcus [...] L ORDERABLES Final Result Performing Organization Address City/[facility]/ZIP Co de Phone Number [facility] [address] [facility] [employer] [place], [place] [id number] * Mycology (fungal) culture Tissue Back, lower (09/19/2024 11:08 AM MANAGER MEDICARE) Report Final Report: No fungus isolated Tissue (Back, lower) 09/19/2024 11:08 AM MANAGER MEDICARE 09/19/2024 12:11 PM MANAGER MEDICARE [place] [facility] - 10/17/2024 1:00 PM MANAGER MEDICARE Deep Tissue Mycology cultures are held for 4 weeks. us Kevin Brody MD LAB MICROBIOLOGY - GENERA L ORDERABLES Final Result Performing Organization Address City/[facility]/ZIP Co de Phone Number [facility] [address] [facility] [place] [address] * Mycology (fungal) culture Abscess Back, lower (09/19/2024 11:07 AM MANAGER MEDICARE) Report Final Report: No fungus isolated Abscess (Back, lower) 09/19/2024 11:07 AM MANAGER MEDICARE 09/19/2024 12:25 PM MANAGER MEDICARE [place] [facility] - 10/17/2024 1:00 PM MANAGER MEDICARE Deep Mycology cultures are held for 4 weeks. us Kevin Brody MD LAB MICROBIOLOGY - GENERA L ORDERABLES Final Result Performing Organization Address [facility]/ZIP Co de Phone Number [facility] [address] [place] [address] * Mycology (fungal) culture Abscess Back, lower (09/19/2024 11:07 AM MANAGER MEDICARE) Report Final Report: No fungus isolated Abscess (Back, lower) 09/19/2024 11:07 AM MANAGER MEDICARE 09/19/2024 12:25 PM MANAGER MEDICARE Narrative [facility] - 10/17/2024 1:00 PM MANAGER MEDICARE Superficial Mycology cultures are held for 4 weeks. us Kevin Brody MD LAB MICROBIOLOGY - GENERA L ORDERABLES Final Result Performing Organization Address [facility] Co de Phone Number [facility] [address] [facility] [place] [address] * (ABNORMAL) Aerobic and anaerobic culture and gram stain Abscess Back, lower (09/19/2024 11:07 AM MANAGER MEDICARE) Direct Specimen Exam Stain: No polymorphonuclear leukocytes seen. No organisms seen. Report Final Report: Light growth of: Staphylococcus aureus, methicillin susceptible Susceptibility reported on this organism on previous culture [id number] (.) [facility] Organism STAPHYLOCOCCUS AUREUS, METHICILLIN SUSCEPTIBLE [facility] Abscess (Back, lower) 09/19/2024 11:07 AM MANAGER MEDICARE 09/19/2024 12:25 PM MANAGER MEDICARE Narrative [facility] - 09/23/2024 8:55 AM MANAGER MEDICARE Deep us Kevin Brody MD LAB MICROBIOLOGY - GENERA L ORDERABLES Final Result Performing Organization Address [facility] Co de Phone Number [facility] [address] [place] [address] * (ABNORMAL) Aerobic and anaerobic culture and gram stain Abscess Back, lower (09/19/2024 11:07 AM MANAGER MEDICARE) Direct Specimen Exam Stain: Few polymorphonuclear leukocytes seen. Rare Gram Positive Cocci Report Final Report: Moderate growth of: Staphylococcus aureus, methicillin susceptible (.) [facility] Organism STAPHYLOCOCCUS AUREUS, METHICILLIN SUSCEPTIBLE [facility] Abscess (Back, lower) 09/19/2024 11:07 AM MANAGER MEDICARE 09/19/2024 12:25 PM MANAGER MEDICARE Narrative [facility] - 09/23/2024 8:49 AM MANAGER MEDICARE Superficial Organism Antibiotic Method Susceptibility Staphylococcus aureus, [...] MICROBIOLOGY - GENERA L ORDERABLES Final Result [facility] [address] Department [place] [address] * CT AN ELECTIVE ENDOTRACHEAL AIRWAY, CT AN PROCEDURE PLACEHOLDER (09/19/2024 10:49 AM MANAGER MEDICARE) Sonia Carrera CRNA - 09/19/2024 10:49 AM MANAGER MEDICARE Sonia David CRNA 09/19/2024 10:50 AM Airway Patient location: OR Urgency: elective Indications for airway management: anesthesia Difficult airway: no Staff: Placed by: SPECIAL EDUCATION CASE MANAGER: Sonia David CRNA Emergent airway documentation: Risks [...] silk tape Number of attempts: 1 Stephenie Jennifer DO ANESTHESIA ORDERABLES Final Result * (ABNORMAL) Differential, auto (09/19/2024 1:19 AM MANAGER MEDICARE) Pathologist [facility] Neutrophil abs 13.1(H) 1.5 - 6.5 K/cumm Imm gran abs 0.1 0.0 - 0.1 K/cumm [facility] Lymphocyte abs 1.3 0.8 - 3.3 K/cumm [facility] Monocyte abs 1.3(H) 0.2 - 0.8 K/cumm [facility] Eosinophil abs 0.0 0.0 - 0.5 K/cumm [facility] Basophil abs 0.0 0.0 - 0.1 K/cumm [facility] Neutrophil pct 83.0 % [facility] Comment: Interpretive Data Percent cell count reference ranges are not reported, since discordance with absolute values may lead to misinterpretation of CBC data. Current Interpretive Data was last revised on 2018. Imm gran pct 0.5 % [facility] [facility] Comment: Interpretive Data Percent cell count reference ranges are not reported, since discordance with absolute values may lead to misinterpretation of CBC data. Current Interpretive Data was last revised on 2018. Lymphocyte pct 8.0 % [facility] Comment: Interpretive Data Percent cell count reference ranges are not reported, since discordance with absolute values may lead to misinterpretation of CBC data. Current Interpretive Data was last revised on 2018. Monocyte pct 8.3 % [facility] Comment: Interpretive Data Percent cell count reference ranges are not reported, since discordance with absolute values may lead to misinterpretation of CBC data. Current Interpretive Data was last revised on 2018. Eosinophil pct 0.1 % [facility] Comment: Interpretive Data Percent cell count reference ranges are not reported, since discordance with absolute values may lead to misinterpretation of CBC data. Current Interpretive Data was last revised on 2018. Basophil pct 0.1 % [facility] Comment: Interpretive Data Percent cell count reference ranges are not reported, since discordance with absolute values may lead to misinterpretation of CBC data. Current Interpretive Data was last revised on 2018. Blood 09/19/2024 1:19 AM MANAGER MEDICARE 09/19/2024 1:19 AM MANAGER MEDICARE Kita Astudillo MD LAB BLOOD ORDERABLES Final Resu lt Performing Organization Address City/[facility]/ZIP Co de Phone Number [facility] [address] [place] [address] * (ABNORMAL) CBC with auto differential (09/19/2024 1:19 AM MANAGER MEDICARE) WBC 15.8(H) 3.8 - 9.9 K/cumm Hgb 13.0 13.0 - 17.5 g/dL [facility] Hct 39.4 38.9 - 50.3 % [facility] Plt 150 150 - 400 K/cumm [facility] MPV 12.1 9.1 - 12.3 fL [facility] RBC 4.38 4.30 - 5.80 M/cumm [facility] MCV 90.0 81.3 - 96.4 fL [facility] MCH 29.7 27.1 - 33.3 pg [facility] MCHC 33.0 32.3 - 35.7 g/dL [facility] RDW CV 12.7 11.1 - 14.9 % [facility] RDW SD 42.4 35.7 - 48.1 fL [facility] NRBC abs 0.00 0.00 - 0.01 K/cumm [facility] Blood 09/19/2024 1:19 AM MANAGER MEDICARE 09/19/2024 1:19 AM MANAGER MEDICARE Kita Astudillo MD LAB BLOOD ORDERABLES Final Resu lt Performing Organization Address City/[facility]/ZIP Co de Phone Number [facility] [address] [place] [address] * eGFR (09/19/2024 12:55 AM MANAGER MEDICARE) eGFR >90 >=60 mL/min/1. 73 m2 Comment: Interpretive Data Reference Interval Normal >/= 90 mL/min/1.73m2 Mildly decreased* 60 - 89 mL/min/1.73m2 Mildly to moderately decreased 45 - 59 mL/min/1.73m2 Moderately to severely decreased 30 - 44 mL/min/1.73m2 Severely decreased 15 - 29 mL/min/1.73m2 Kidney Failure < 15 mL/min/1.73m2 *Relative to young adult level Estimated glomerular [...] reviewed 2021. Blood 09/19/2024 12:5 5 AM MANAGER MEDICARE 09/19/2024 1:19 AM MANAGER MEDICARE Kita Astudillo MD LAB BLOOD ORDERABLES Final Resu lt [facility] [address] Department [place] [address] * Blood culture Blood (09/19/2024 12:55 AM MANAGER MEDICARE) Report Final Report: No growth Blood 09/19/2024 12:5 5 AM MANAGER MEDICARE 09/19/2024 2:14 AM MANAGER MEDICARE Narrative [facility] - 09/24/2024 7:01 AM MANAGER MEDICARE From a different site than #1. Collection->Peripheral [...] organism identification may be performed using the L2Array Blood Culture Identification panel. This assay detects microbial DNA in a blood culture broth. This assay has been cleared by the [facility] Food and Drug Administration and its performance characteristics have been verified by the [facility] Microbiology Laboratory. Interpretive data was last revised on October 27, 2022. Kita Astudillo MD [facility] MICROBIOLOGY - [facility] Final Result Performing Organization Address [facility] Co de Phone Number [facility] [address] Department of [employer] [place], [place] [id number] * Blood culture Blood (09/19/2024 12:55 AM MANAGER MEDICARE) Report Final Report: No growth Blood 09/19/2024 12:5 5 AM MANAGER MEDICARE 09/19/2024 2:14 AM MANAGER MEDICARE Narrative [facility] - 09/24/2024 7:01 AM MANAGER MEDICARE Collection->Peripheral Interpretive Data 1. Blood cultures are incubated and monitored continuously for 5 days (120 hours). The first negative report is issued within 24 hours of receipt in the laboratory. 2. All positive cultures are resulted and called to physicians/care providers as soon as they are detected. 3. A rapid molecular test for organism identification may be performed using the [employer] FilmArray Blood Culture Identification panel. This assay detects microbial DNA in a blood culture broth. This assay has been cleared by the [place] Food and Drug Administration and its performance characteristics have been verified by the [facility] Microbiology Laboratory. Interpretive data was last revised on October 27, 2022. Kita Astudillo MD LAB [facility] Final Result Performing Organization Address [facility] de Phone Number [facility] [address] [place] [address] * (ABNORMAL) Comprehensive metabolic panel (09/19/2024 12:55 AM MANAGER MEDICARE) Sodium 136 135 - 145 mmol/L Potassium, pl 4.1 3.3 - 4.9 mmol/L [facility] Comment:Hemolyzed; potassium value may be falsely elevated by as much as 0.3 - 0.5 mmol/L. Suggest redraw and reanalysis Chloride 98 97 - 110 mmol/L [facility] CO2 26 22 - 32 mmol/L [facility] Anion gap 12 2 - 15 mmol/L [facility] BUN 8 6 - 25 mg/dL [facility] Creatinine 0.70(L) 0.80 - 1.30 mg/dL [facility] Glucose 139 70 - 199 mg/dL [facility] Comment: Interpretive Data Fasting glucose >/= 126 mg/dl is diagnostic for diabetes. Fasting is defined as no caloric intake [...] 2022. Calcium 9.1 8.5 - 10.3 mg/dL [facility] Bilirubin, total 0.9 0.1 - 1.2 mg/dL [facility] Protein, pl 6.7 6.5 - 8.5 g/dL [facility] Albumin 3.7 3.5 - 5.0 g/dL [facility] Alk phos 92 40 - 130 Units/L [facility] ALT 18 7 - 55 Units/L [facility] AST 22 10 - 50 Units/L [facility] Comment:Slightly Hemolyzed S pecimen Blood 09/19/2024 12:5 5 AM MANAGER MEDICARE 09/19/2024 1:19 AM MANAGER MEDICARE us Kita Astudillo MD LAB BLOOD ORDERABLES Final Resu lt [facility] [address] [place] [address] * (ABNORMAL) CBC without differential (08/14/2024 7:13 AM MANAGER MEDICARE) WBC 16.5(H) 3.8 - 9.9 K/cumm Hgb 14.5 13.0 - 17.5 g/dL [facility] Hct 43.7 38.9 - 50.3 % [facility] Plt 169 150 - 400 K/cumm [facility] MPV 12.0 9.1 - 12.3 fL [facility] RBC 4.87 4.30 - 5.80 M/cumm [facility] MCV 89.7 81.3 - 96.4 fL [facility] MCH 29.8 27.1 - 33.3 pg [facility] MCHC 33.2 32.3 - 35.7 g/dL [facility] RDW CV 13.3 11.1 - 14.9 % [facility] RDW SD 44.0 35.7 - 48.1 fL [facility] NRBC abs 0.00 0.00 - 0.01 K/cumm [facility] Blood 08/14/2024 7:13 AM MANAGER MEDICARE 08/14/2024 7:51 AM MANAGER MEDICARE us Kevin Brody MD LAB BLOOD ORDERABLES Suzie gutierrez Result [place] [address] [address] [facility] Department [place] [address] * Surgical pathology (08/13/2024 11:16 AM MANAGER MEDICARE) Disc, intervertebral 024 11:16 AM MANAGER MEDICARE 08/13/2024 1:53 PM MANAGER MEDICARE Narrative 08/14/2024 2:09 PM MANAGER MEDICARE [place] [id number] [place], [place] [address] Tele: Batsheva Ji MD - Continuing Education Dean Note to Patients: This report may contain [...] the details. SURGICAL PATHOLOGY REPORT Patient Name: TRAMAINE MARIN JR. Address: [address] [place] [id number] Gender: M : 1970 (Age: 53) Service: Ortho Location: [place] [address], Hospital #: [id number] Patient [facility]: [facility] Taken: 08/13/2024 Received 08/13/2024 Reported: 08/14/2024 Physician(s): Kevin Brody M.D. Elton Higinio Jean Baptiste M.D. DIAGNOSIS: Intervertebral disc, L3-5, discectomy: - Disc material with degenerative changes smo/08/14/2024 14:09 Examining Pathologist: Asa Rodrigues M.D. Report Reviewed and Electronically Signed By Asa Rodrigues M.D. SPECIMEN TYPE: A: DISC MATERIAL CLINICAL IMPRESSION AND HISTORY: Pseudoclaudication syndrome GROSS DESCRIPTION: Received in formalin labeled with TRAMAINE MARIN and disc material are red- brown irregular tissue fragments measuring 3.9 x 3.5 x 0.6 cm in aggregate [employer] sections are submitted in cassette labeled A1. [facility] MICROSCOPIC DESCRIPTION: Microscopic examination supports the above captioned diagnosis. This case was signed out at [facility], [address] [place] [id number]. Clerical Data Follows A; [id number] REPORT IMAGES AND/OR SCANNED DOCUMENTS ONLY VIEWABLE IN PDF FORMAT The immunohistochemical test(s) cited in this report, if any, was developed and its performance characteristics determined by [facility] Pathology Department. It has not been cleared or approved by the [place] Food and Drug Administration. The FDA has determined that such clearance or approval is not necessary. This test is used for clinical purposes. It should not be regarded as investigational or for research. [facility] Laboratory is certified under the Clinical Laboratory Improvement Amendments of 1988 (CLIA) as qualified to perform high complexity testing. Immunostains were performed on formalin-fixed paraffin embedded tissue using a polymer diaminobenzidine chromogen detection system. Antibodies used may include clone SP1 (rabbit monoclonal, estrogen receptor), clone 1E2 (rabbit monoclonal progesterone receptor), Ki-67 (rabbit monoclonal, 30-9), CD117 (rabbit polyclonal, c-kit), and anti-Her-2/maria del rosario (4B5) (rabbit monoclonal primary antibody). In the event that immunohistochemistry or special stains have been performed, attending physician has confirmed appropriateness of controls. Frozen section, operating room consultation, gross examination and dissection, and case sign out may have been performed in part or completely in the following laboratories: [facility], [facility] [place] [place] [address] [facility], [address] [place] [address], [place] [address]. us Kevin Brody MD LAB PATHOLOGY ORDERABLES Final Result * FL Fluoroscopy < 1 Hour (08/13/2024 11:08 AM MANAGER MEDICARE) Narrative [facility] - 08/13/2024 11:09 AM MANAGER MEDICARE The images from this study are not interpreted by Radiology. Please refer to the physician's procedure / OR operative note. us Kevin Brody MD IMG FLUOROSCOPY PROCEDURE S Final Result [facility] * XR Spine Lumbar 2 or 3 Views (08/13/2024 11:08 AM MANAGER MEDICARE) Anatomical Region Laterality Modality Spine N/A Computed Radiogr aphy 08/13/2024 11:3 5 AM MANAGER MEDICARE Impressions 08/13/2024 11:35 AM MANAGER MEDICARE FINDINGS/IMPRESSION: 6 intraoperative fluoroscopic images are submitted for review. Fusion L4-L5 vertebral bodies. Postoperative changes of L3-L5 posterior fusion and decompression with L3-L4 interbody fusion device placement. Hardware is grossly intact. Please refer to the dedicated operative report for complete evaluation of real-time findings. Electronically signed by: Justus [place] M.D. Narrative 08/13/2024 11:35 AM MANAGER MEDICARE EXAM: XR SPINE LUMBAR 2 OR 3 [...] IMG XR PROCEDURES Final R esult * CT AN ELECTIVE ENDOTRACHEAL AIRWAY, CT AN PROCEDURE PLACEHOLDER (08/13/2024 7:59 AM MANAGER MEDICARE) Narrative Naomi Galvan CRNA - 08/13/2024 7:59 AM MANAGER MEDICARE Naomi Galvan CRNA 08/13/2024 8:01 AM Airway Patient location: OR Urgency: elective Indications for airway management: anesthesia Difficult airway: no Staff: Supervising provider: Jason Christianson MD Placed by: SPECIAL EDUCATION CASE MANAGER: Naomi Galvan CRNA Emergent airway documentation: Risks [...] Result * Check Sample (08/13/2024 6:59 AM MANAGER MEDICARE) ABO Rh O Positive MBC HCLL OTHER 08/13/2024 6:59 AM MANAGER MEDICARE 08/13/2024 7:23 AM MANAGER MEDICARE us Ara Robbins SENIOR APPLICATION PROGRAMMER LAB BLOOD ORDERABLES Fi nal Result [facility] [address] Department [place] [address] MBC from Last 3 Months Insurance [facility] [place] Advance Directives For more information, please contact: [phone] * Full Code (Latest Code Status on File) Date Activated Date Inactivated Comments 09/19/2024 12:47 PM 10/05/2024 3:11 PM * Full Code Date Activated Date Inactivated Comments 09/18/2024 8:09 PM 09/19/2024 12:47 PM * Full Code Date Activated Date Inactivated Comments 08/13/2024 2:58 PM 08/14/2024 4:58 PM Care Teams Supervisor Patching Relationship Specialty Start Date End Date Elton De La Fuente MD PCP - General Family Medicine 06/02/21
--- OUTSIDE RECORDS SUMMARY | 2024-11-08 09:47 | XMS_ITS | Referral Summary ---
Author Organization [facility] Address [address] [place] [address] Care Team Providers Care Freight Sales Broker Name Role Phone Elton De La Fuente MD Primary Care Provider [phone] Encounters Date Type Department Care Team Description 10/17/2024 8:34 AM APPLICATION CONSULTANT - 10/17/2024 11:59 PM APPLICATION CONSULTANT Hospital Encounter [facility] - Interventional Radiology [address] [place] [phone] Infection following a procedure, other surgical site, subsequent encounter Discharge Disposition: Discharge to home or self care 09/18/2024 7:53 PM APPLICATION CONSULTANT - 10/05/2024 11:00 AM APPLICATION CONSULTANT Hospital Encounter [facility] [address] [place] [phone] Kita Astudillo MD Willis, Devin Ray, MD Sufi, MD Yessica Vigil Fatima A., MD Alkaade, Saad, MD Hammes, Amanda Jane, MD Teckchandani, Renu, MD Wound infection (Primary Dx); Cellulitis of other specified site; Cellulitis, unspecified cellulitis site [L03.90]; Lumbar stenosis with neurogenic claudication [M48.062] Discharge Disposition: Discharge to home or self care 09/19/2024 10:31 AM APPLICATION CONSULTANT Anesthesia Event [facility] Operating Room [address] [place] [phone] Stephenie Rodriguez DO Tynes, Jessika Olegovna, CRNA 09/19/2024 10:03 AM APPLICATION CONSULTANT - 09/19/2024 12:08 PM APPLICATION CONSULTANT Surgery [facility] Operating Room [address] [place] [phone] Kevin Brody MD INCISION AND DRAINAGE - LUMBAR 09/18/2024 Orders Only [address] [phone] Kita Astudillo MD 09/17/2024 Patient Self-Triage [facility] [address] [place] [phone] Mychart, Generic Provider 08/13/2024 5:41 AM APPLICATION CONSULTANT - 08/14/2024 12:58 PM APPLICATION CONSULTANT Hospital Encounter [address] [phone] Kevin Brody MD Pseudoclaudication syndrome Discharge Disposition: Discharge to home or self care 08/13/2024 Orders Only [facility] Operating Room [address] [place] [phone] Kevin Brody MD 08/13/2024 7:30 AM APPLICATION CONSULTANT - 08/13/2024 12:30 PM APPLICATION CONSULTANT Surgery [facility] Operating Room [address] [place] [phone] Kevin Brody MD L3-5 Decompressive Laminectomy, Posterior Lumbar Interbody Fusion using Zavation EZ Span Cage, Mathew Screws, Local Autograph and L4-5 Repeat Discectomy 08/13/2024 7:26 AM APPLICATION CONSULTANT Anesthesia Event [facility] Operating Room [address] [place] [phone] Jason Christianson MD Salameh, Besan Mohammed, PA from Last 3 Months Allergies Active Allergy [...] mg total) into a venous catheter daily 5 10/31/19 25 Active Problems Problem Noted Date Diagnosed Date [...] 0.6 oz pur e alcohol) Recovering alcoholic-whiskey [facility] Utilities Answer Date Recorded In the past 12 months has th e electric, gas, oil, or water company [...] any clubs o r organizations such as presybeterian groups, unions, fraternal or athletic groups, or [...] on file Legal Sex Male 6:34 PM APPLICATION CONSULTANT Gender Identity Not on file Sexual Orientation Not on file 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 Not on file Not on file Not on file Last Filed Vital Signs Vital Sign Reading Time Taken Comments Blood Pressure 173/100 10/17/2024 9:20 AM APPLICATION CONSULTANT Pulse 69 10/17/2024 9:20 AM APPLICATION CONSULTANT Temperature 37.3 C (99.1 F) 10/17/2024 8:45 AM APPLICATION CONSULTANT Respiratory Rate 16 10/17/2024 9:20 AM APPLICATION CONSULTANT Oxygen Saturation 95% 10/17/2024 9:20 AM APPLICATION CONSULTANT Inhaled Oxygen Concentration - - Weight 87.1 kg (192 lb) 10/17/2024 8:45 AM APPLICATION CONSULTANT Height 182.9 cm (6') 10/17/2024 8:45 AM APPLICATION CONSULTANT Body Mass Index 26.04 10/17/2024 8:45 AM APPLICATION CONSULTANT Plan of Treatment Not on file Medical Devices Implanted Type Area Water Quality Specialist Device Identifier Shelf Expiration Date Model / Serial / Lot Biocomposites Stimulan Rapid Cure Kit Paste Stockroom Attendant 5cc 12.5cc Bone Void 620-005 - [id number] Implanted:Qty: 1 on 08/13/2024 by Kevin Brody MD at [facility] N/A: Spine Lumbar Biocom[employer]ites [id number] 04/24/2027 620-005 / / [id number] [employer] Cage Spinal Lumbar 10 Degree Tlif Expandable 7-11.5mm Titanium [id number] - [id number] Implanted:Qty: 2 on 08/13/2024 by Kevin Brody MD at [facility] N/A: Spine Lumbar [employer] [id number] / / Amina Spine 4.5mm 35mm Polyaxial Spine Screw Bone Deformity [id number] - [id number] Implanted:Qty: 6 on 08/13/2024 by Kevin Brody MD at [facility] N/A: Spine Lumbar Amina Spine [id number] / / Amina Spine 4.5mm 75mm Contour Ulises Spinal Cocr [id number] - [id number] Implanted:Qty: 2 on 08/13/2024 by Kevin Brody MD at [facility] N/A: Spine Lumbar Amina Spine [id number] / / Gateway Spine 26mm Semiadjustable Transverse Spine Connector Ulises Posterior [id number] - [id number] Implanted:Qty: 1 on 08/13/2024 by Kevin Brody MD at [facility] N/A: Spine Lumbar Gateway Spine [id number] [id number] / / Amina Spine 32mm Semiadjustable Transverse Spine Connector Ulises Posterior [id number] - [id number] Implanted:Qty: 1 on 08/13/2024 by Kevin Brody MD at [facility] N/A: Spine Lumbar Gateway Spine [id number] 2A / / Procedures Procedure Name Priority Date/Time Associated Diagnosis Comments IR PICC LINE PLACEMENT > 5 YEARS Schedule Routine, Read Routine (OP Routine) 10/17/2024 9:26 AM APPLICATION CONSULTANT Infection following a procedure, other surgical site, subsequent encounter EGFR Routine 09/28/2024 5:42 AM APPLICATION CONSULTANT RENAL FUNCTION PANEL Routine 09/28/2024 5:42 AM APPLICATION CONSULTANT EGFR Routine 09/27/2024 4:57 AM APPLICATION CONSULTANT RENAL FUNCTION PANEL Routine 09/27/2024 4:57 AM APPLICATION CONSULTANT EGFR Routine 09/26/2024 5:36 AM APPLICATION CONSULTANT RENAL FUNCTION PANEL Routine 09/26/2024 5:36 AM APPLICATION CONSULTANT EGFR Routine 09/25/2024 5:49 AM APPLICATION CONSULTANT RENAL FUNCTION PANEL Routine 09/25/2024 5:49 AM APPLICATION CONSULTANT EGFR Routine 09/24/2024 7:50 AM APPLICATION CONSULTANT RENAL FUNCTION PANEL Routine 09/24/2024 7:50 AM APPLICATION CONSULTANT CBC WITHOUT DIFFERENTIAL Routine 09/24/2024 7:50 AM APPLICATION CONSULTANT DRUGS OF ABUSE SCREEN, URINE WITHOUT CONFIRMATION Routine 09/23/2024 6:26 PM APPLICATION CONSULTANT EGFR Routine 09/23/2024 6:17 AM APPLICATION CONSULTANT RENAL FUNCTION PANEL Routine 09/23/2024 6:17 AM APPLICATION CONSULTANT CBC WITHOUT DIFFERENTIAL Routine 09/23/2024 6:17 AM APPLICATION CONSULTANT XR CHEST 1 VIEW ED Urgent/IP Urgent 09/22/2024 12:05 PM APPLICATION CONSULTANT VA INSJ NON-TUNNELED CENTRAL VENOUS CATH AGE 5 YR/> Routine 09/22/2024 11:15 AM APPLICATION CONSULTANT Wound infection EGFR Routine 09/22/2024 8:12 AM APPLICATION CONSULTANT RENAL FUNCTION PANEL Routine 09/22/2024 8:12 AM APPLICATION CONSULTANT CBC WITHOUT DIFFERENTIAL Routine 09/22/2024 8:12 AM APPLICATION CONSULTANT EGFR Routine 09/21/2024 6:09 AM APPLICATION CONSULTANT RENAL FUNCTION PANEL Routine 09/21/2024 6:09 AM APPLICATION CONSULTANT CBC WITHOUT DIFFERENTIAL Routine 09/21/2024 6:09 AM APPLICATION CONSULTANT VANCOMYCIN LEVEL TROUGH Timed 09/20/2024 5:36 PM APPLICATION CONSULTANT CBC WITHOUT DIFFERENTIAL Routine 09/20/2024 5:58 AM APPLICATION CONSULTANT MYCOLOGY (FUNGAL) CULTURE Routine 09/19/2024 11:08 AM APPLICATION CONSULTANT TISSUE AEROBIC AND ANAEROBIC CULTURE AND GRAM STAIN Routine 09/19/2024 11:08 AM APPLICATION CONSULTANT MYCOLOGY (FUNGAL) CULTURE Routine 09/19/2024 11:07 AM APPLICATION CONSULTANT AEROBIC AND ANAEROBIC CULTURE AND GRAM STAIN Routine 09/19/2024 11:07 AM APPLICATION CONSULTANT MYCOLOGY (FUNGAL) CULTURE Routine 09/19/2024 11:07 AM APPLICATION CONSULTANT AEROBIC AND ANAEROBIC CULTURE AND GRAM STAIN Routine 09/19/2024 11:07 AM APPLICATION CONSULTANT VA AN PROCEDURE PLACEHOLDER Routine 09/19/2024 10:49 AM APPLICATION CONSULTANT VA AN ELECTIVE ENDOTRACHEAL AIRWAY Routine 09/19/2024 10:49 AM APPLICATION CONSULTANT INCISION AND DRAINAGE - BACK 09/19/2024 10:30 AM APPLICATION CONSULTANT LUMBAR WOUND INFECTION DIFFERENTIAL AUTO Routine 09/19/2024 1:1 9 AM APPLICATION CONSULTANT CBC WITH AUTO DIFFERENTIAL Routine 09/19/2024 1:19 AM APPLICATION CONSULTANT EGFR Routine 09/19/2024 12:55 AM APPLICATION CONSULTANT COMPREHENSIVE METABOLIC PANEL Routine 09/19/2024 12:55 AM APPLICATION CONSULTANT BLOOD CULTURE Routine 09/19/2024 12:55 AM APPLICATION CONSULTANT BLOOD CULTURE Routine 09/19/2024 12:55 AM APPLICATION CONSULTANT CBC WITHOUT DIFFERENTIAL Routine 08/14/2024 7:13 AM APPLICATION CONSULTANT SURGICAL PATHOLOGY Routine 08/13/2024 11 :16 AM APPLICATION CONSULTANT FL FLUOROSCOPY < 1 HOUR IP Routine 08/13/2024 11:08 AM APPLICATION CONSULTANT XR SPINE LUMBAR 2 OR 3 VIEWS IP Routine 08/13/2024 11:08 AM APPLICATION CONSULTANT VA AN PROCEDURE PLACEHOLDER Routine 08/13/2024 7:59 AM APPLICATION CONSULTANT VA AN ELECTIVE ENDOTRACHEAL AIRWAY Routine 08/13/2024 7:59 AM APPLICATION CONSULTANT FUSION LUMBAR - POSTERIOR 2 LEVELS 08/13/2024 7:30 AM APPLICATION CONSULTANT Pseudoclaudicatio n syndrome B CHECK SAMPLE STAT 08/13/2024 6:59 AM APPLICATION CONSULTANT from Last 3 Months Results * IR PICC Line Placement Over 5 Years of Age (10/17/2024 9:26 AM APPLICATION CONSULTANT) Anatomical Region Laterality Modality Body N/A X-Ray Angiograph y 10/17/2024 10:2 5 AM APPLICATION CONSULTANT Impressions 10/17/2024 10:25 AM APPLICATION CONSULTANT Successful nontunneled catheter placement. PLAN: The catheter is ready for immediate use. When treatment is completed, this catheter can be removed at the bedside according to standard hospital protocol. Electronically signed by: Patrica Garnica PA-C Narrative 10/17/2024 10:25 AM APPLICATION CONSULTANT EXAMINATION: NONTUNNELED CENTRAL VENOUS CATHETER PLACEMENT (STD) [...] was obtained. Prior to beginning the procedure, [facility] Protocol was used to confirm the patient's [...] was obtained. Prior to beginning the procedure, [facility] Protocol was used to confirm the patient's [...] protocol. Electronically signed by: Patrica Garnica PA-C Brett Green MD IMG IR PROCEDURES Fin al Result * eGFR (09/28/2024 5:42 AM APPLICATION CONSULTANT) eGFR >90 >=60 mL/min/1. 73 m2 [...] last reviewed 2021. Blood 09/28/2024 5:42 AM APPLICATION CONSULTANT 09/28/2024 5:54 AM APPLICATION CONSULTANT Mitchell Grajeda MD LAB BLOOD ORDERABLES Final R esult Performing Organization Address City/[facility]/ZIP Co de Phone Number [facility] [address] [place] [place] [place] [address] * (ABNORMAL) Renal function panel (09/28/2024 5:42 AM APPLICATION CONSULTANT) Sodium 139 135 - 145 mmol/L Potassium, pl 4.1 3.3 - 4.9 mmol/L [facility] Chloride 99 97 - 110 mmol/L [facility] CO2 27 22 - 32 mmol/L [facility] Anion gap 13 2 - 15 mmol/L [facility] BUN 15 6 - 25 mg/dL [facility] Creatinine 0.78(L) 0.80 - 1.30 mg/dL [facility] Glucose 108 70 - 199 mg/dL [facility] Comment: Interpretive Data Fasting glucose >/= 126 [...] 2022. Calcium 9.1 8.5 - 10.3 mg/dL [facility] Phosphorus, pl 4.2 2.3 - 4.5 mg/dL [facility] Albumin 4.0 3.5 - 5.0 g/dL [facility] Blood 09/28/2024 5:42 AM APPLICATION CONSULTANT 09/28/2024 5:54 AM APPLICATION CONSULTANT Mitchell Grajeda MD LAB BLOOD ORDERABLES Final R esult Performing Organization Address City/[facility]/ZIP Co de Phone Number [facility] [address] [place] [place] [address] * eGFR (09/27/2024 4:57 AM APPLICATION CONSULTANT) Pathologist [facility] [place] eGFR >90 [...] last reviewed 2021. Blood 09/27/2024 4:57 AM APPLICATION CONSULTANT 09/27/2024 5:20 AM APPLICATION CONSULTANT us Mitchell Grajeda MD LAB BLOOD ORDERABLES Final R esult [facility] [address] Department [place] [address] * (ABNORMAL) Renal function panel (09/27/2024 4:57 AM APPLICATION CONSULTANT) [facility] Sodium 143 135 - 145 mmol/L Potassium, pl 4.1 3.3 - 4.9 mmol/L [facility] Chloride 103 97 - 110 mmol/L [facility] CO2 28 22 - 32 mmol/L [facility] Anion gap 12 2 - 15 mmol/L [facility] BUN 15 6 - 25 mg/dL [facility] Creatinine 0.77(L) 0.80 - 1.30 mg/dL [facility] Glucose 91 70 - 199 mg/dL [facility] Comment: Interpretive Data Fasting glucose >/= 126 [...] 2022. Calcium 9.4 8.5 - 10.3 mg/dL [facility] Phosphorus, pl 4.4 2.3 - 4.5 mg/dL [facility] Albumin 3.9 3.5 - 5.0 g/dL [facility] Blood 09/27/2024 4:57 AM APPLICATION CONSULTANT 09/27/2024 5:20 AM APPLICATION CONSULTANT us Mitchell Garjeda MD LAB BLOOD ORDERABLES Final R esult [facility] [address] Department [place] [address] * eGFR (09/26/2024 5:36 AM APPLICATION CONSULTANT) eGFR >90 >=60 mL/min/1. 73 m2 [...] last reviewed 2021. Blood 09/26/2024 5:36 AM APPLICATION CONSULTANT 09/26/2024 6:05 AM APPLICATION CONSULTANT Mitchell Grajeda MD LAB BLOOD ORDERABLES Final R esult Performing Organization Address City/[facility]/ZIP Co de Phone Number [facility] [address] Department [place] [address] * (ABNORMAL) Renal function panel (09/26/2024 5:36 AM APPLICATION CONSULTANT) Pathologist [facility] [place] Sodium 139 135 - 145 mmol/L Potassium, pl 4.0 3.3 - 4.9 mmol/L [facility] Chloride 99 97 - 110 mmol/L [facility] CO2 28 22 - 32 mmol/L [facility] Anion gap 12 2 - 15 mmol/L [facility] BUN 14 6 - 25 mg/dL [facility] Creatinine 0.73(L) 0.80 - 1.30 mg/dL [facility] Glucose 95 70 - 199 mg/dL [facility] Comment: Interpretive Data Fasting glucose >/= 126 [...] 2022. Calcium 9.1 8.5 - 10.3 mg/dL [facility] Phosphorus, pl 4.3 2.3 - 4.5 mg/dL [facility] Albumin 4.0 3.5 - 5.0 g/dL [facility] Blood 09/26/2024 5:36 AM APPLICATION CONSULTANT 09/26/2024 6:05 AM APPLICATION CONSULTANT Mitchell Grajeda MD LAB BLOOD ORDERABLES Final R esult [facility] [address] Department [place] [address] * eGFR (09/25/2024 5:49 AM APPLICATION CONSULTANT) eGFR >90 >=60 mL/min/1. 73 m2 [...] last reviewed 2021. Blood 09/25/2024 5:49 AM APPLICATION CONSULTANT 09/25/2024 6:01 AM APPLICATION CONSULTANT us Mitchell Grajeda MD LAB BLOOD ORDERABLES Final R esult Performing Organization Address [facility] Co de Phone Number [facility] [address] Department [place] [address] * (ABNORMAL) Renal function panel (09/25/2024 5:49 AM APPLICATION CONSULTANT) Pathologist [facility] [place] Sodium 142 135 - 145 mmol/L Potassium, pl 3.9 3.3 - 4.9 mmol/L [facility] Chloride 103 97 - 110 mmol/L [facility] CO2 29 22 - 32 mmol/L [facility] Anion gap 10 2 - 15 mmol/L [facility] BUN 10 6 - 25 mg/dL [facility] Creatinine 0.70(L) 0.80 - 1.30 mg/dL [facility] Glucose 88 70 - 199 mg/dL [facility] Comment: Interpretive Data Fasting glucose >/= 126 [...] 2022. Calcium 8.8 8.5 - 10.3 mg/dL [facility] Phosphorus, pl 4.1 2.3 - 4.5 mg/dL [facility] Albumin 3.7 3.5 - 5.0 g/dL [facility] Blood 09/25/2024 5:49 AM APPLICATION CONSULTANT 09/25/2024 6:01 AM APPLICATION CONSULTANT us Mitchell Grajeda MD LAB BLOOD ORDERABLES Final R esult [facility] [address] Department [place] [address] * eGFR (09/24/2024 7:50 AM APPLICATION CONSULTANT) eGFR >90 >=60 mL/min/1. 73 m2 [...] last reviewed 2021. Blood 09/24/2024 7:50 AM APPLICATION CONSULTANT 09/24/2024 8:09 AM APPLICATION CONSULTANT Mitchell Grajeda MD LAB BLOOD ORDERABLES Final R esult Performing Organization Address City/[facility]/ZIP Co de Phone Number [facility] [address] [place] [place] [address] * (ABNORMAL) CBC without differential (09/24/2024 7:50 AM APPLICATION CONSULTANT) WBC 11.4(H) 3.8 - 9.9 K/cumm Hgb 13.0 13.0 - 17.5 g/dL [facility] Hct 40.2 38.9 - 50.3 % [facility] Plt 280 150 - 400 K/cumm [facility] MPV 10.8 9.1 - 12.3 fL [facility] RBC 4.40 4.30 - 5.80 M/cumm [facility] MCV 91.4 81.3 - 96.4 fL [facility] MCH 29.5 27.1 - 33.3 pg [facility] MCHC 32.3 32.3 - 35.7 g/dL [facility] RDW CV 13.0 11.1 - 14.9 % [facility] RDW SD 43.6 35.7 - 48.1 fL [facility] NRBC abs 0.00 0.00 - 0.01 K/cumm [facility] Blood 09/24/2024 7:50 AM APPLICATION CONSULTANT 09/24/2024 8:10 AM APPLICATION CONSULTANT us Kevin Brody MD LAB BLOOD ORDERABLES Suzie l Result Performing Organization Address City/[facility]/ZIP Co de Phone Number [facility] [address] [place] [address] * (ABNORMAL) Renal function panel (09/24/2024 7:50 AM APPLICATION CONSULTANT) Pathologist [facility] [place] Sodium 141 135 - 145 mmol/L Potassium, pl 4.0 3.3 - 4.9 mmol/L [facility] Chloride 101 97 - 110 mmol/L [facility] CO2 28 22 - 32 mmol/L [facility] Anion gap 12 2 - 15 mmol/L [facility] BUN 13 6 - 25 mg/dL [facility] Creatinine 0.75(L) 0.80 - 1.30 mg/dL [facility] Glucose 154 70 - 199 mg/dL [facility] Comment: Interpretive Data Fasting glucose >/= 126 [...] 2022. Calcium 9.0 8.5 - 10.3 mg/dL [facility] Phosphorus, pl 3.7 2.3 - 4.5 mg/dL [facility] Albumin 3.9 3.5 - 5.0 g/dL [facility] Blood 09/24/2024 7:50 AM APPLICATION CONSULTANT 09/24/2024 8:09 AM APPLICATION CONSULTANT Mitchell Grajeda MD LAB BLOOD ORDERABLES Final R esult [facility] [address] Department [place] [address] * (ABNORMAL) Drugs of Abuse Screen, Urine without Confirmation (09/23/2024 6:26 PM APPLICATION CONSULTANT) [facility] Amphetamine, ur Not Detected CutOff 500ng/mL Comment: Interpretive Data - Amphetamines: Samples containing greater than 500 ng/mL d-methamphetamine or other cross-reacting amphetamine compounds are reported as positive. Amphetamine immunoassays are subject to significant false positive rates due to cross-reactivity of non-amphetamine drugs. Confirmatory testing required for definitive results. Current Interpretive Data was last reviewed 2023. Barbiturates, ur Not Detected CutOff 200ng/mL [facility] Comment: Interpretive Data - Barbiturates: Samples containing greater than 200 ng/mL secobarbital or other cross-reacting barbiturate compounds are reported as positive. False positive and false negative results are possible. Confirmatory testing required for definitive results. Current Interpretive Data was last reviewed 2023. Benzodiazepines, ur Screen Positive, presumptive (A) CutOff 100ng/mL [facility] Comment: Interpretive Data - Benzodiazepines: Samples containing greater than 100 ng/mL nordiazepam or other cross-reacting compounds are reported as positive. False positive and false negative results are possible. Confirmatory testing required for definitive results. Current Interpretive Data was last reviewed 2023. Cannabinoids, ur Not Detected CutOff 50 ng/mL [facility] Comment: Interpretive Data - Cannabinoids: Samples containing greater than 50 ng/mL delta-9 THC -COOH or other cross- reacting compounds are reported as positive. False positive and false negative results are possible. Confirmatory testing required for definitive results. Current Interpretive Data was last reviewed 2023. Cocaine, ur Not Detected CutOff 150ng/mL [facility] Comment: Interpretive Data - Cocaine: Samples containing greater than 150 ng/mL benzoylecgonine or other cross- reacting compounds are reported as positive. False positive and false negative results are possible. Confirmatory testing required for definitive results. Current Interpretive Data was last reviewed 2023. Fentanyl, Ur Not Detected CutOff 5 ng/mL [facility] Comment: Interpretive Data - Fentanyl: Samples containing greater than 5 ng/mL norfentanyl, fentanyl, or other cross-reacting fentanyl compounds are reported as positive. False positive and false negative results are possible. Confirmatory testing required for definitive results. Current Interpretive Data was last reviewed 2023. Methadone, ur Not Detected CutOff 300ng/mL [facility] Comment: Interpretive Data - Methadone: Samples containing greater than 300 ng/mL d,l-methadone or other cross-reacting compounds are reported as positive. False positive and false negative results are possible. Confirmatory testing required for definitive results. Current Interpretive Data was last reviewed 2023. Opiates, ur Not Detected CutOff 300ng/mL [facility] Comment: Interpretive Data - Opiates: Samples containing greater than 300 ng/mL morphine or other cross-reacting compounds are reported as positive. False positive and false negative results are possible. Confirmatory testing required for definitive results. Current Interpretive Data was last reviewed 2023. Oxycodone, ur Screen Positive, presumptive (A) CutOff 100ng/mL [facility] Comment: Interpretive Data - Oxycodone: Samples containing greater than 100 ng/mL oxycodone or other cross-reacting compounds are reported as positive. False positive and false negative results are possible. Confirmatory testing required for definitive results. Current Interpretive Data was last reviewed 2023. Phencyclidine, ur Not Detected CutOff 25 ng/mL [facility] Comment: Interpretive Data - Phencyclidine: Samples containing greater than 25 ng/mL phencyclidine or other cross-reacting compounds are reported as positive. False positive and false negative results are possible. Confirmatory testing required for definitive results. Current Interpretive Data was last reviewed 2023. Urine Creatinine 87 mg/dL [facility] Comment: Interpretive Data Urine Creatinine: < 10 mg/dL is extremely dilute = or > 10 but < 20 mg/dL is dilute = or > 20 mg/dL is normal Current Interpretive Data was last revised on 2017. Urine 09/23/2024 6:26 PM APPLICATION CONSULTANT 09/23/2024 6:33 PM APPLICATION CONSULTANT Narrative [facility] - 09/23/2024 7:11 PM APPLICATION CONSULTANT Drug of Abuse screening is performed by immunoassay for medical purposes only. This is not to be used for Pain Management purposes. us Jovany Stubbs MD LAB URINE ORDERABLES Final Result [facility] [address] Department of Laboratories [place] [address] * eGFR (09/23/2024 6:17 AM APPLICATION CONSULTANT) eGFR >90 >=60 mL/min/1. 73 m2 [...] last reviewed 2021. Blood 09/23/2024 6:17 AM APPLICATION CONSULTANT 09/23/2024 6:34 AM APPLICATION CONSULTANT us Mitchell Grajeda MD LAB BLOOD ORDERABLES Final R esult [facility] [address] Department [place] [address] * (ABNORMAL) CBC without differential (09/23/2024 6:17 AM APPLICATION CONSULTANT) WBC 8.7 3.8 - 9.9 K/cumm Hgb 12.7(L) 13.0 - 17.5 g/dL [facility] Hct 39.6 38.9 - 50.3 % [facility] Plt 244 150 - 400 K/cumm [facility] MPV 10.9 9.1 - 12.3 fL [facility] RBC 4.30 4.30 - 5.80 M/cumm [facility] MCV 92.1 81.3 - 96.4 fL [facility] MCH 29.5 27.1 - 33.3 pg [facility] MCHC 32.1(L) 32.3 - 35.7 g/dL [facility] RDW CV 13.0 11.1 - 14.9 % [facility] RDW SD 43.8 35.7 - 48.1 fL [facility] NRBC abs 0.00 0.00 - 0.01 K/cumm [facility] Blood 09/23/2024 6:17 AM APPLICATION CONSULTANT 09/23/2024 6:34 AM APPLICATION CONSULTANT us Kevin Brody MD LAB BLOOD ORDERABLES Suzie l Result [facility] [address] Department [place] [address] * (ABNORMAL) Renal function panel (09/23/2024 6:17 AM APPLICATION CONSULTANT) Sodium 141 135 - 145 mmol/L Potassium, pl 4.1 3.3 - 4.9 mmol/L [facility] Chloride 100 97 - 110 mmol/L [facility] CO2 30 22 - 32 mmol/L [facility] Anion gap 11 2 - 15 mmol/L [facility] BUN 10 6 - 25 mg/dL [facility] Creatinine 0.72(L) 0.80 - 1.30 mg/dL [facility] Glucose 95 70 - 199 mg/dL [facility] Comment: Interpretive Data Fasting glucose >/= 126 [...] 2022. Calcium 8.7 8.5 - 10.3 mg/dL [facility] Phosphorus, pl 3.9 2.3 - 4.5 mg/dL [facility] Albumin 3.5 3.5 - 5.0 g/dL [facility] Blood 09/23/2024 6:17 AM APPLICATION CONSULTANT 09/23/2024 6:34 AM APPLICATION CONSULTANT us Mitchell Ray Grajeda MD LAB BLOOD ORDERABLES Final R esult [facility] [address] Department [place] [address] * X-ray chest 1 view (Portable) (09/22/2024 12:05 PM APPLICATION CONSULTANT) Anatomical Region Laterality Modality Body, Chest N/A Computed Radiogr aphy 09/22/2024 12:4 0 PM APPLICATION CONSULTANT Impressions 09/22/2024 12:40 PM APPLICATION CONSULTANT Left upper extremity PICC tip in the mid SVC. Electronically signed by: Akil Cerda D.O. Narrative 09/22/2024 12:40 PM APPLICATION CONSULTANT EXAMINATION: XR CHEST 1 VIEW HISTORY: check line placement COMPARISON: Radiograph 03/30/2024 FINDINGS: Left upper extremity PICC tip in the mid SVC. Normal cardiomediastinal silhouette and pulmonary vasculature. No focal airspace opacity. No pneumothorax or large pleural effusion. No acute osseous abnormality. 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 73 m2 [...] last reviewed 2021. Blood 09/22/2024 8:12 AM APPLICATION CONSULTANT 09/22/2024 8:51 AM APPLICATION CONSULTANT us Mitchell Grajeda MD LAB BLOOD ORDERABLES Final R esult [facility] [address] Department [place] [address] * CBC without differential (09/22/2024 8:12 AM APPLICATION CONSULTANT) WBC 8.5 3.8 - 9.9 K/cumm Hgb 13.6 13.0 - 17.5 g/dL [facility] Hct 41.9 38.9 - 50.3 % [facility] Plt 241 150 - 400 K/cumm [facility] MPV 11.4 9.1 - 12.3 fL [facility] RBC 4.59 4.30 - 5.80 M/cumm [facility] MCV 91.3 81.3 - 96.4 fL [facility] MCH 29.6 27.1 - 33.3 pg [facility] MCHC 32.5 32.3 - 35.7 g/dL [facility] RDW CV 13.0 11.1 - 14.9 % [facility] RDW SD 43.8 35.7 - 48.1 fL [facility] NRBC abs 0.00 0.00 - 0.01 K/cumm [facility] Blood 09/22/2024 8:12 AM APPLICATION CONSULTANT 09/22/2024 8:52 AM APPLICATION CONSULTANT us Kevin Brody MD LAB BLOOD ORDERABLES Suzie l Result Performing Organization Address [facility]/ZIP Co de Phone Number [facility] [address] [place] [address] * (ABNORMAL) Renal function panel (09/22/2024 8:12 AM APPLICATION CONSULTANT) [facility] Sodium 143 135 - 145 mmol/L Potassium, pl 3.7 3.3 - 4.9 mmol/L [facility] Chloride 100 97 - 110 mmol/L [facility] CO2 31 22 - 32 mmol/L [facility] Anion gap 12 2 - 15 mmol/L [facility] BUN 9 6 - 25 mg/dL [facility] Creatinine 0.77(L) 0.80 - 1.30 mg/dL [facility] Glucose 144 70 - 199 mg/dL [facility] Comment: Interpretive Data Fasting glucose >/= 126 [...] 2022. Calcium 9.3 8.5 - 10.3 mg/dL [facility] Phosphorus, pl 4.6(H) 2.3 - 4.5 mg/dL [facility] Albumin 4.1 3.5 - 5.0 g/dL [facility] Blood 09/22/2024 8:12 AM APPLICATION CONSULTANT 09/22/2024 8:51 AM APPLICATION CONSULTANT us Mitchell Grajeda MD LAB BLOOD ORDERABLES Final R esult Performing Organization Address [facility]/ZIP Co de Phone Number [facility] [address] Department [place] [address] * eGFR (09/21/2024 6:09 AM APPLICATION CONSULTANT) [facility] eGFR >90 >=60 mL/min/1. 73 m2 [...] last reviewed 2021. Blood 09/21/2024 6:09 AM APPLICATION CONSULTANT 09/21/2024 7:01 AM APPLICATION CONSULTANT us Mitchell Grajeda MD LAB BLOOD ORDERABLES Final R esult [facility] [address] Department [place] [address] * (ABNORMAL) CBC without differential (09/21/2024 6:09 AM APPLICATION CONSULTANT) [facility] WBC 8.8 3.8 - 9.9 K/cumm Hgb 11.7(L) 13.0 - 17.5 g/dL [facility] Hct 36.0(L) 38.9 - 50.3 % [facility] Plt 162 150 - 400 K/cumm [facility] MPV 12.0 9.1 - 12.3 fL [facility] RBC 3.93(L) 4.30 - 5.80 M/cumm [facility] MCV 91.6 81.3 - 96.4 fL [facility] MCH 29.8 27.1 - 33.3 pg [facility] MCHC 32.5 32.3 - 35.7 g/dL [facility] RDW CV 13.0 11.1 - 14.9 % [facility] RDW SD 44.1 35.7 - 48.1 fL [facility] NRBC abs 0.00 0.00 - 0.01 K/cumm [facility] Blood 09/21/2024 6:09 AM APPLICATION CONSULTANT 09/21/2024 7:01 AM APPLICATION CONSULTANT us Kevin Brody MD LAB BLOOD ORDERABLES Suzie gutierrez Result [facility] [address] Department [place] [address] * (ABNORMAL) Renal function panel (09/21/2024 6:09 AM APPLICATION CONSULTANT) Sodium 143 135 - 145 mmol/L Potassium, pl 3.5 3.3 - 4.9 mmol/L [facility] Chloride 105 97 - 110 mmol/L [facility] CO2 26 22 - 32 mmol/L [facility] Anion gap 12 2 - 15 mmol/L [facility] BUN 10 6 - 25 mg/dL [facility] Creatinine 0.70(L) 0.80 - 1.30 mg/dL [facility] Glucose 102 70 - 199 mg/dL [facility] Comment: Interpretive Data Fasting glucose >/= 126 [...] 2022. Calcium 8.6 8.5 - 10.3 mg/dL [facility] Phosphorus, pl 3.6 2.3 - 4.5 mg/dL [facility] Albumin 3.3(L) 3.5 - 5.0 g/dL [facility] Blood 09/21/2024 6:09 AM APPLICATION CONSULTANT 09/21/2024 7:01 AM APPLICATION CONSULTANT Mitchell Grajeda MD LAB BLOOD ORDERABLES Final R esult Performing Organization Address City/[facility]/ZIP Co de Phone Number [facility] [address] [place] [address] * (ABNORMAL) Vancomycin level trough Please draw trough at this specific time. (09/20/2024 5:36 PM APPLICATION CONSULTANT) Pathologist [facility] [place] Vancomycin trough 7.4(L) 10.0 - 20.0 mcg/mL Blood 09/20/2024 5:36 PM APPLICATION CONSULTANT 09/20/2024 5:40 PM APPLICATION CONSULTANT Narrative [facility] - 09/20/2024 6:00 PM APPLICATION CONSULTANT Please draw trough at this specific time. Mitchell Grajeda MD LAB BLOOD ORDERABLES Final R esult Performing Organization Address City/[facility]/ZIP Co de Phone Number [facility] [address] [place] [place] [address] * (ABNORMAL) CBC without differential (09/20/2024 5:58 AM APPLICATION CONSULTANT) WBC 17.4(H) 3.8 - 9.9 K/cumm Hgb 12.8(L) 13.0 - 17.5 g/dL [facility] Hct 40.4 38.9 - 50.3 % [facility] Plt 174 150 - 400 K/cumm [facility] MPV 12.4(H) 9.1 - 12.3 fL [facility] RBC 4.37 4.30 - 5.80 M/cumm [facility] MCV 92.4 81.3 - 96.4 fL [facility] MCH 29.3 27.1 - 33.3 pg [facility] MCHC 31.7(L) 32.3 - 35.7 g/dL [facility] RDW CV 12.9 11.1 - 14.9 % [facility] RDW SD 44.1 35.7 - 48.1 fL [facility] NRBC abs 0.00 0.00 - 0.01 K/cumm [facility] Blood 09/20/2024 5:58 AM APPLICATION CONSULTANT 09/20/2024 6:35 AM APPLICATION CONSULTANT Kevin Brody MD LAB BLOOD ORDERABLES Suzie l Result Performing Organization Address [facility]/ZIP Co de Phone Number [facility] [address] [place] [address] * (ABNORMAL) Tissue aerobic and anaerobic culture and gram stain Tissue Back, lower (09/19/2024 11:08AM APPLICATION CONSULTANT) Direct Specimen Exam Stain: No polymorphonuclear leukocytes seen. No organisms seen. Report Final Report: Very light growth Staphylococcus aureus, methicillin susceptible (.) [facility] Organism STAPHYLOCOCCUS AUREUS, METHICILLIN SUSCEPTIBLE [facility] Tissue (Back, lower) 09/19/2024 11:08 AM APPLICATION CONSULTANT 09/19/2024 12:11 PM APPLICATION CONSULTANT Narrative [facility] - 09/22/2024 9:51 AM APPLICATION CONSULTANT Deep Tissue Organism Antibiotic Method Susceptibility [...] MICROBIOLOGY - GENERA L ORDERABLES Final Result [facility] [address] [place] [address] * Mycology (fungal) culture Tissue Back, lower (09/19/2024 11:08 AM APPLICATION CONSULTANT) Report Final Report: No fungus isolated Tissue (Back, lower) 09/19/2024 11:08 AM APPLICATION CONSULTANT 09/19/2024 12:11 PM APPLICATION CONSULTANT Narrative [facility] - 10/17/2024 1:00 PM APPLICATION CONSULTANT Deep Tissue Mycology cultures are held for 4 weeks. us Kevin Brody MD LAB MICROBIOLOGY - GENERA L ORDERABLES Final Result Performing Organization Address City/[facility] Co de Phone Number [facility] [address] [facility] [place] [address] * Mycology (fungal) culture Abscess Back, lower (09/19/2024 11:07 AM APPLICATION CONSULTANT) Report Final Report: No fungus isolated Abscess (Back, lower) 09/19/2024 11:07 AM APPLICATION CONSULTANT 09/19/2024 12:25 PM APPLICATION CONSULTANT Narrative [facility] 10/17/2024 1:00 PM APPLICATION CONSULTANT Deep Mycology cultures are held for 4 weeks. us Kevin Brody MD LAB MICROBIOLOGY - GENERA L ORDERABLES Final Result Performing Organization Address [facility] Co de Phone Number [facility] [address] [place] [address] * Mycology (fungal) culture Abscess Back, lower (09/19/2024 11:07 AM APPLICATION CONSULTANT) Report Final Report: No fungus isolated Abscess (Back, lower) 09/19/2024 11:07 AM APPLICATION CONSULTANT 09/19/2024 12:25 PM APPLICATION CONSULTANT Narrative [facility] 10/17/2024 1:00 PM APPLICATION CONSULTANT Superficial Mycology cultures are held for 4 weeks. us Kevin Brody MD LAB MICROBIOLOGY - GENERA L ORDERABLES Final Result Performing Organization Address [facility] Co de Phone Number [facility] [address] [place] [facility] [address] * (ABNORMAL) Aerobic and anaerobic culture and gram stain Abscess Back, lower (09/19/2024 11:07 AM APPLICATION CONSULTANT) Direct Specimen Exam Stain: No polymorphonuclear leukocytes seen. No organisms seen. Report Final Report: Light growth of: Staphylococcus aureus, methicillin susceptible Susceptibility reported on this organism on previous culture [id number] (.) [facility] Organism STAPHYLOCOCCUS AUREUS, METHICILLIN SUSCEPTIBLE [facility] Abscess (Back, lower) 09/19/2024 11:07 AM APPLICATION CONSULTANT 09/19/2024 12:25 PM APPLICATION CONSULTANT Narrative [facility] - 09/23/2024 8:55 AM APPLICATION CONSULTANT Deep Kevin Brody MD LAB MICROBIOLOGY - GENERA L ORDERABLES Final Result [facility] [address] Department [place] [address] * (ABNORMAL) Aerobic and anaerobic culture and gram stain Abscess Back, lower (09/19/2024 11:07 AM APPLICATION CONSULTANT) Direct Specimen Exam Stain: Few polymorphonuclear leukocytes seen. Rare Gram Positive Cocci Report Final Report: Moderate growth of: Staphylococcus aureus, methicillin susceptible (.) [facility] Organism STAPHYLOCOCCUS AUREUS, METHICILLIN SUSCEPTIBLE [facility] Abscess (Back, lower) 09/19/2024 11:07 AM APPLICATION CONSULTANT 09/19/2024 12:25 PM APPLICATION CONSULTANT Narrative [facility] - 09/23/2024 8:49 AM APPLICATION CONSULTANT Superficial Organism Antibiotic Method Susceptibility Staphylococcus [...] MICROBIOLOGY - GENERA L ORDERABLES Final Result [facility] [address] Department [place] [address] * VA AN ELECTIVE ENDOTRACHEAL AIRWAY, VA AN PROCEDURE PLACEHOLDER (09/19/2024 10:49 AM APPLICATION CONSULTANT) Sonia Carrera CRNA - 09/19/2024 10:49 AM APPLICATION CONSULTANT Sonia David CRNA 09/19/2024 10:50 AM Airway Patient location: OR Urgency: elective Indications for airway management: anesthesia Difficult airway: no Staff: Placed by: HAMMER SETTER: Sonia David CRNA Emergent airway documentation: Risks [...] * (ABNORMAL) Differential, auto (09/19/2024 1:19 AM APPLICATION CONSULTANT) Neutrophil abs 13.1(H) 1.5 - 6.5 K/cumm Imm gran abs 0.1 0.0 - 0.1 K/cumm [facility] Lymphocyte abs 1.3 0.8 - 3.3 K/cumm [facility] Monocyte abs 1.3(H) 0.2 - 0.8 K/cumm [facility] Eosinophil abs 0.0 0.0 - 0.5 K/cumm [facility] Basophil abs 0.0 0.0 - 0.1 K/cumm [facility] Neutrophil pct 83.0 % [facility] Comment: Interpretive Data Percent cell count reference ranges are not reported, since discordance with absolute values may lead to misinterpretation of CBC data. Current Interpretive Data was last revised on 2018. Imm gran pct 0.5 % [facility] Comment: Interpretive Data Percent cell count reference ranges are not reported, since discordance with absolute values may lead to misinterpretation of CBC data. Current Interpretive Data was last revised on 2018. Lymphocyte pct 8.0 % [facility] Comment: Interpretive Data Percent cell count reference ranges are not reported, since discordance with absolute values may lead to misinterpretation of CBC data. Current Interpretive Data was last revised on 2018. Monocyte pct 8.3 % [facility] Comment: Interpretive Data Percent cell count reference ranges are not reported, since discordance with absolute values may lead to misinterpretation of CBC data. Current Interpretive Data was last revised on 2018. Eosinophil pct 0.1 % [facility] Comment: Interpretive Data Percent cell count reference ranges are not reported, since discordance with absolute values may lead to misinterpretation of CBC data. Current Interpretive Data was last revised on 2018. Basophil pct 0.1 % [facility] Comment: Interpretive Data Percent cell count reference ranges are not reported, since discordance with absolute values may lead to misinterpretation of CBC data. Current Interpretive Data was last revised on 2018. Blood 09/19/2024 1:19 AM APPLICATION CONSULTANT 09/19/2024 1:19 AM APPLICATION CONSULTANT us Kita Astudillo MD LAB BLOOD ORDERABLES Final Resu lt [facility] [address] Department [place] [address] * (ABNORMAL) CBC with auto differential (09/19/2024 1:19 AM APPLICATION CONSULTANT) WBC 15.8(H) 3.8 - 9.9 K/cumm Hgb 13.0 13.0 - 17.5 g/dL [facility] Hct 39.4 38.9 - 50.3 % [facility] Plt 150 150 - 400 K/cumm [facility] MPV 12.1 9.1 - 12.3 fL [facility] RBC 4.38 4.30 - 5.80 M/cumm [facility] MCV 90.0 81.3 - 96.4 fL [facility] MCH 29.7 27.1 - 33.3 pg [facility] MCHC 33.0 32.3 - 35.7 g/dL [facility] RDW CV 12.7 11.1 - 14.9 % [facility] RDW SD 42.4 35.7 - 48.1 fL [facility] NRBC abs 0.00 0.00 - 0.01 K/cumm [facility] Blood 09/19/2024 1:19 AM APPLICATION CONSULTANT 09/19/2024 1:19 AM APPLICATION CONSULTANT Kita Astudillo MD LAB BLOOD ORDERABLES Final Resu lt [facility] [address] Department [place] [address] * eGFR (09/19/2024 12:55 AM APPLICATION CONSULTANT) eGFR >90 >=60 mL/min/1. 73 m2 [...] reviewed 2021. Blood 09/19/2024 12:5 5 AM APPLICATION CONSULTANT 09/19/2024 1:19 AM APPLICATION CONSULTANT Kita Astudillo MD LAB BLOOD ORDERABLES Final Resu lt Performing Organization Address [facility] Co de Phone Number [facility] [address] [place] [address] * Blood culture Blood (09/19/2024 12:55 AM APPLICATION CONSULTANT) Report Final Report: No growth Blood 09/19/2024 12:5 5 AM APPLICATION CONSULTANT 09/19/2024 2:14 AM APPLICATION CONSULTANT [facility]ative [facility] 09/24/2024 7:01 AM APPLICATION CONSULTANT From a different site than #1. [...] organism identification may be performed using the [employer] Blood Culture Identification panel. This assay detects microbial DNA in a blood culture broth. This assay has been cleared by the [place] Food and Drug Administration and its performance characteristics have been verified by the [facility]. Interpretive data was last revised on October 27, 2022. Kita Astudillo MD LAB MICROBIOLOGY - GENERAL ORDE RABLES Final Result Performing Organization Address [facility] Co de Phone Number [facility] [address] [place] [address] * Blood culture Blood (09/19/2024 12:55 AM APPLICATION CONSULTANT) Report Final Report: No growth Blood 09/19/2024 12:5 5 AM APPLICATION CONSULTANT 09/19/2024 2:14 AM APPLICATION CONSULTANT Narrative [facility] - 09/24/2024 7:01 AM APPLICATION CONSULTANT Collection->Peripheral Interpretive Data 1. Blood cultures are incubated and monitored continuously for 5 days (120 hours). The first negative report is issued within 24 hours of receipt in the laboratory. 2. All positive cultures are resulted and called to physicians/care providers as soon as they are detected. 3. A rapid molecular test for organism identification may be performed using the [employer] Blood Culture Identification panel. This assay detects microbial DNA in a blood culture broth. This assay has been cleared by the [place] Food and Drug Administration and its performance characteristics have been verified by the [facility]. Interpretive data was last revised on October 27, 2022. us Kita Astudillo MD LAB MICROBIOLOGY - GENERAL ORDTay NEGRON Final Result [facility] [address] Department [place] [address] * (ABNORMAL) Comprehensive metabolic panel (09/19/2024 12:55 AM APPLICATION CONSULTANT) Sodium 136 135 - 145 mmol/L Potassium, pl 4.1 3.3 - 4.9 mmol/L [facility] Comment:Hemolyzed; potassium value may be falsely elevated by as much as 0.3 - 0.5 mmol/L. Suggest redraw and reanalysis Chloride 98 97 - 110 mmol/L [facility] CO2 26 22 - 32 mmol/L [facility] Anion gap 12 2 - 15 mmol/L [facility] BUN 8 6 - 25 mg/dL [facility] Creatinine 0.70(L) 0.80 - 1.30 mg/dL [facility] Glucose 139 70 - 199 mg/dL [facility] Comment: Interpretive Data Fasting glucose >/= 126 [...] 2022. Calcium 9.1 8.5 - 10.3 mg/dL [facility] Bilirubin, total 0.9 0.1 - 1.2 mg/dL [facility] Protein, pl 6.7 6.5 - 8.5 g/dL [facility] Albumin 3.7 3.5 - 5.0 g/dL [facility] Alk phos 92 40 - 130 Units/L [facility] ALT 18 7 - 55 Units/L [facility] AST 22 10 - 50 Units/L [facility] Comment:Slightly Hemolyzed S pecimen Blood 09/19/2024 12:5 5 AM APPLICATION CONSULTANT 09/19/2024 1:19 AM APPLICATION CONSULTANT us Kita Astudillo MD LAB BLOOD ORDERABLES Final Resu lt [facility] [address] Department [place] [address] * (ABNORMAL) CBC without differential (08/14/2024 7:13 AM APPLICATION CONSULTANT) WBC 16.5(H) 3.8 - 9.9 K/cumm Hgb 14.5 13.0 - 17.5 g/dL [facility] Hct 43.7 38.9 - 50.3 % [facility] Plt 169 150 - 400 K/cumm [facility] MPV 12.0 9.1 - 12.3 fL [facility] RBC 4.87 4.30 - 5.80 M/cumm [facility] MCV 89.7 81.3 - 96.4 fL [facility] MCH 29.8 27.1 - 33.3 pg [facility] MCHC 33.2 32.3 - 35.7 g/dL [facility] RDW CV 13.3 11.1 - 14.9 % [facility] RDW SD 44.0 35.7 - 48.1 fL [facility] NRBC abs 0.00 0.00 - 0.01 K/cumm [facility] Blood 08/14/2024 7:13 AM APPLICATION CONSULTANT 08/14/2024 7:51 AM APPLICATION CONSULTANT us Kevin Brody MD LAB BLOOD ORDERABLES Suzie brenda Result [facility] [address] Department of Laboratories [place], [place] [id number] * Surgical pathology (08/13/2024 11:16 AM APPLICATION CONSULTANT) Disc, intervertebral 024 11:16 AM APPLICATION CONSULTANT 08/13/2024 1:53 PM APPLICATION CONSULTANT Narrative 08/14/2024 2:09 PM APPLICATION CONSULTANT [address] [address] Tele: Batsheva Ji MD - [employer] Note to Patients: This report may contain [...] REPORT Patient Name: TRAMAINE MARIN JR. Address: [address] [place] [address] Gender: M : 1970 (Age: 53) Service: Ortho Location: [place] [address], Hospital #: [id number] Patient Type: [facility] OP IN BED Taken: 08/13/2024 Received 08/13/2024 Reported: 08/14/2024 Physician(s): Francis Manley M.D. DIAGNOSIS: Intervertebral disc, L3-5, discectomy: - Disc material with degenerative changes [facility]/08/14/2024 14:09 Examining Pathologist: Asa Rodrigues M.D. Report Reviewed and Electronically Signed By Asa Rodrigues M.D. SPECIMEN TYPE: A: DISC MATERIAL CLINICAL IMPRESSION AND HISTORY: Pseudoclaudication syndrome GROSS DESCRIPTION: Received in formalin labeled with TRAMAINE MARIN and disc material are red- brown irregular tissue fragments measuring 3.9 x 3.5 x 0.6 cm in aggregate Doughnut Machine Operator sections are submitted in cassette labeled A1. [facility] MICROSCOPIC DESCRIPTION: Microscopic examination supports the above captioned diagnosis. This case was signed out at [facility], [address] [place] [id number]. Clerical Data Follows A; 40993 REPORT IMAGES AND/OR SCANNED DOCUMENTS ONLY VIEWABLE IN PDF FORMAT The immunohistochemical test(s) cited in this report, if any, was developed and its performance characteristics determined by [facility] Pathology Department. It has not been cleared or approved by the U.S. Food and Drug Administration. The FDA has determined that such clearance or approval is not necessary. This test is used for clinical purposes. It should not be regarded as investigational or for research. [facility] Laboratory is certified under the [...] part or completely in the following laboratories: [facility], [facility], [place], [place] [address] [place] [address], [address] [place] [address]. us Kevin Brody MD LAB PATHOLOGY ORDERABLES Final Result * [place] Fluoroscopy < 1 Hour (08/13/2024 11:08 AM APPLICATION CONSULTANT) Narrative [facility] - 08/13/2024 11:09 AM APPLICATION CONSULTANT The images from this study are not interpreted by Radiology. Please refer to the physician's procedure / OR operative note. Kevin Brody MD [facility] FLUOROSCOPY PROCEDURE S Final Result RAD_PACS[facility] * XR Spine Lumbar 2 or 3 Views (08/13/2024 11:08 AM APPLICATION CONSULTANT) Anatomical Region Laterality Modality Spine N/A Computed Radiogr aphy 08/13/2024 11:3 5 AM APPLICATION CONSULTANT Impressions 08/13/2024 11:35 AM APPLICATION CONSULTANT FINDINGS/IMPRESSION: 6 intraoperative fluoroscopic images are submitted for review. Fusion L4-L5 vertebral bodies. Postoperative changes of L3-L5 posterior fusion and decompression with L3-L4 interbody fusion device placement. Hardware is grossly intact. Please refer to the dedicated operative report for complete evaluation of real-time findings. Electronically signed by: Justus Toledo M.D. Narrative 08/13/2024 11:35 AM APPLICATION CONSULTANT EXAM: XR SPINE LUMBAR 2 OR [...] by: Justus Toledo M.D. Kevin Brody MD IM XR PROCEDURES Final R esult * VA AN ELECTIVE ENDOTRACHEAL AIRWAY, VA AN PROCEDURE PLACEHOLDER (08/13/2024 7:59 AM APPLICATION CONSULTANT) Narrative Naomi Galvan CRNA - 08/13/2024 7:59 AM APPLICATION CONSULTANT Naomi Galvan CRNA 08/13/2024 8:01 AM Airway Patient location: OR Urgency: elective Indications for airway management: anesthesia Difficult airway: no Staff: Supervising provider: Jason Christianson MD Placed by: HAMMER SETTER: Naomi Galvan CRNA Emergent airway documentation: Risks [...] Result * Check Sample (08/13/2024 6:59 AM APPLICATION CONSULTANT) ABO Rh O Positive MBC HCLL OTHER 08/13/2024 6:59 AM APPLICATION CONSULTANT 08/13/2024 7:23 AM APPLICATION CONSULTANT us Ara Robbins MANUFACTURING STOREPERSON LAB BLOOD ORDERABLES Fi nal Result [facility] [address] Department [place] [address] MBC from Last 3 Months Insurance [facility] [place] [address] [place] Advance Directives For more information, please contact: [phone] * Full Code (Latest Code Status on File) Date Activated Date Inactivated Comments 09/19/2024 12:47 PM 10/05/2024 3:11 PM * Full Code Date Activated Date Inactivated Comments 09/18/2024 8:09 PM 09/19/2024 12:47 PM * Full Code Date Activated Date Inactivated Comments 08/13/2024 2:58 PM 08/14/2024 4:58 PM Care Teams Freight Sales Broker Relationship Specialty Start Date End Date Elton De La Fuente MD PCP - General Family Medicine 06/02/21
[2024-11-08 11:00] LABS: Basophils Percent Auto 0.5 % (0.2-1.2); Eosinophils Absolute Auto 0.2 K/mm3 (0-0.3); Eosinophils Percent Auto 2.7 % (0-4.4); Hematocrit 47.9 % (42.0-52.0); Hemoglobin 15.4 g/dL (14.0-18.0); Immature Granulocyte Absolute 0.02 K/mm3 (0.00-0.031); Immature Granulocyte Percent A 0.2 % (0-0.5); Lymphocytes Absolute Auto 2.37 K/mm3 (0.9-3.2); Lymphocytes Percent Auto 29.2 % (18.3-44.2); Mean Corpuscular HGB Conc 32.2 g/dl (32-36); Mean Corpuscular Hemoglobin 28.7 pg (26-34); Mean Corpuscular Volume 89.4 fl (80-100); Mean Platelet Volume 11.5 fl (7.4-10.4); Monocytes Absolute Auto 0.7 K/mm3 (0.1-0.6); Monocytes Percent Auto 8.8 % (2.6-8.5); Neutrophils Absolute Auto 4.8 K/mm3 (1.3-6.7); Neutrophils Percent Auto 58.6 % (45.5-73.1); Platelet Count Result 194 k/mm3 (150-375); Red Blood Count 5.36 M/mm3 (4.6-6.20); White Blood Count 8.1 K/mm3 (4.5-10.0)
[2024-11-08 11:09] LABS: Anion Gap 9 mmol/L (4-12); Blood Urea Nitrogen 11 mg/dL (9-20); Calcium 9.4 mg/dL (8.4-10.2); Carbon Dioxide 30 mmol/L (22-30); Chloride 103 mmol/L (98-107); Estimated Glomerular Filt Rate > 60; Glucose 85 mg/dL (65-110); Potassium 3.9 mmol/L (3.4-5.0); Sodium 142 mmol/L (137-145)
== END 2024-11-08 09:44 | disposition home or self-care (01) ==
LOC: ANHLAB 09:44
PROVIDERS: PCP Family Medicine; Visit Provider Physician Assistant Medical
DX: T81.49XA Infection following a procedure, other surgical site, initial encounter (principal)
CPT/HCPCS: 36415; 80048; 85025

== ENCOUNTER 2024-11-18 09:30 | Outpatient (CLI) | payer BC, SELFPAY ==
--- NOTE | ~2024-11-18 | XR_ITS ---
EXAMINATION: XR lumbar spine 2-3V DATE: 11/18/2024 10:11 INDICATION: Arthrodesis status. TECHNIQUE: 3 views of lumbar spine were obtained. COMPARISON: Lumbar spine radiograph 10/21/2024 FINDINGS: There is 3 mm retrolisthesis of L2 on L3. There is mild chronic anterior wedging of T11-L1 vertebral bodies. There is mildly decreased disc height at L1-L2 and L2-L3. There are changes of ante rior fusion procedure at L3-L4 with interbody device. There is interbody fusion at L4-L5. There are c hanges of posterior fusion procedure from L3 to L5 with pedicle screws. 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 IMPRESSION: 1. Mild lumbar spondylosis. 2. Anterior and posterior fusion from L3 to L5. Reviewed, dictated and finalized at location [facility]
--- OUTSIDE RECORDS SUMMARY | 2024-11-18 10:23 | XMS_ITS | Clinical Summary ---
Author Organization [facility] Address [address] [place] [address] Care Team Providers Care Enrollment Advisor Name Role Phone Elton De La Fuente MD Primary Care Provider [phone] Allergies Active Allergy Reactions Criticality Noted Date [...] patient's age to complete this topic Insurance [address] [place] [address] Care Teams Enrollment Advisor Relationship Specialty Start Date End Date Elton De La Fuente MD [address] [place] [address] PCP - General FAMILY PRACTICE 05/08/24
--- OUTSIDE RECORDS SUMMARY | 2024-11-18 10:23 | XMS_ITS ---
Author Organization [facility] Address [address] [place] [address] [address] [place] [address] Care Team Providers Care Employment Law Attorney Name Role Phone Mary Grace SOMMERS, Kevin Unavailable Unavailable Gilda THOMPSON, Bailey Unavailable REASON FOR VISIT meds Encounters Encounter Location Date Provider Diagnosis [facility] [address] [place] [address] [address] [place] [address] 09/05/2024 Bailey Vo Plan Of Treatment Next Appt Details Provider Name:Twan Castillo, 10/27 09:45:00 AM, [address] [facility], [address], [place], [address], Progress Notes * Tramaine MARIN LDOB:1970 (53 yo M)Acc No.[id number]:09/05/2024 Progress Notes Patient: Tramaine REINA Appointment Provider: CLAUDIA Brady :1970 A ge:53 Y S ex:Male Date:09/05/2024 Phone: Address:[address] [place], [place] [address] Subjective: * Chief Complaints: * 1 . Meds. * Medical History: Objective: * Vitals: Assessment: Plan: * Treatment: * Billing Information: * Visit Code: * Procedure Codes: * Electronic signature of CLAUDIA Banks PA-C on 11/18/2024 at 10:23 AM SKIVING MACHINE OPERATOR Sign off status: Pending * Appointment Provider: CLAUDIA Brady Date: 1 11/06/2023 Generated for Printing/Faxing/eTransmitting on: 0 11/18/2024 10:23 AM SKIVING MACHINE OPERATOR
--- OUTSIDE RECORDS SUMMARY | 2024-11-18 10:23 | XMS_ITS | Patient Health Record ---
Author Organization [facility] Address [address] [place] [address] Care Team Providers Care Band And Cuff Cutter Name Role Phone Kevin Brody MD Unavailable Unavailable Sue Davis Unavailable [phone] Twan Castillo Unavailable [phone] Bailey Vo PA-C Unavailable Hillary Staples Unavailable [phone] Allergies Allergen (clinical drug ingredient) Drug/Non Drug [...] Status W/U Status Risk Notes Problem Cervicalgia (29613818) Cervicalgia (M54.2) Active confirmed Problem Cervical spondylosis (019680079) Cervical spondylosis (M47.812) Active confirmed Problem Sacroiliitis (06354020) Sacroiliitis (M46.1) Active confirmed Problem Cervical radiculopathy (91989795) Cervical radiculopathy (M54.12) Active confirmed Problem Post-laminectomy syndrome (62156566) Post laminectomy syndrome (M96.1) Active confirmed Problem Low back pain (278264309) Low back pain (M54.50) Active confirmed Vital Signs Heart Rate 81 /min 08/05/2024 Height-cm 177.8 cm 08/05/2024 Blood pressure diastolic 89 mm Hg 08/05/2024 Weight-kg 79.38 kg 08/05/2024 Height 70 in 08/05/2024 Blood pressure systolic 153 mm Hg 08/05/2024 Weight 175 lbs 08/05/2024 BMI 25.11 kg/m2 08/05/2024 Encounters Encounter Location Date Provider Diagnosis [facility] [address] [facility] [address] [place] [address] 02/07/2024 Twan Castillo [facility] [address] [place] [address] 02/14/2024 Twan Castillo [facility] [address] [place] [address] [address] [place] [address] 03/13/2024 Twan Castillo [facility] [address] [place] [address] 03/20/2024 Twan Castillo [facility] [address] [place] [address] [address] [place] [address] 05/28/2024 Hillary Staples Low back pain M54.50 ; Post laminectomy syndrome M96.1 ; Sacroiliitis M46.1 ; Cervicalgia M54.2 and Other shelter (current) drug therapy Z79.899 [facility] [address] [place] [address] 08/05/2024 Bailey Vo Low back pain M54.50 ; Post laminectomy syndrome M96.1 ; Sacroiliitis M46.1 ; Cervicalgia M54.2 ; Cervical spondylosis M47.812 and Cervical radiculopathy M54.12 [facility] [address] [place] [address] 05/28/2024 Twan Castillo [facility] [address] [place] [address] 06/27/2024 Twan Castillo [facility] [address] [place] [address] 08/05/2024 Sue Davis Assessments Encounter Date Diagnosis (ICD Code) Assessment Notes Treatment Notes Treatment Clinical Notes Section Notes 05/28/2024 Post laminectomy syndrome (ICD-10 - M96.1) 05/28/2024 Low back pain (ICD-10 - M54.50) Refill for controlled substance sent to supervising physician to be filled Follow-up with Dr. Macias to sooner appt for surgical consult per Dr. CastilloConанна home stretching and at home exercise program as toleratedFollow- up in one month for med check, sooner if needed 08/05/2024 Low back pain (ICD-10 - M54.50) Prescription for controlled substance sent to supervising physician for renewal 05/28/2024 Sacroiliitis (ICD-10 - M46.1) 08/05/2024 Post laminectomy syndrome (ICD-10 - M96.1) 05/28/2024 Cervicalgia (ICD-10 - M54.2) 08/05/2024 Sacroiliitis (ICD-10 - M46.1) 05/28/2024 Other filler leaf cutter long (current) drug therapy (ICD-10 - Z79.899) 08/05/2024 Cervicalgia (ICD-10 - M54.2) 08/05/2024 Cervical spondylosis (ICD-10 - M47.812) 08/05/2024 Cervical radiculopathy (ICD-10 - M54.12) 05/28/2024 Other High Blood Pressure: Care Instructions material was published 08/05/2024 Other Body Mass Index : Care Instructions material was published, High Blood Pressure: Care Instructions material was published Plan Of Treatment Next Appt Details Provider Name:Twan Castillo 10/27 09:45:00 AM, [address] [place] [address], [address], [place], [address], Insurance Providers Payer Name Payer Address Payer Phone Subscriber Number Group Number Insured Name Patient Relationship to Insured Coverage Start Date Coverage End Date [facility] [address] [place] [address] [phone] [id number] Tramaine Marin Self - patient is the insured Medical (General) History Medical History History ICD Code COPD Kidney stones Alcoholism- recovery Depression and anxiety Surgical History Surgery Date(Month/Year) ACDF 2020 lumbar decompression/laminectomy surgery at L4-5 level 2020 Hospitalization History Reason Date(Month/Year) no hospitalization since last visit
--- OUTSIDE RECORDS SUMMARY | 2024-11-18 10:23 | XMS_ITS | Clinical Summary ---
Author Organization [facility] [place] Address [address] [place] [address] Care Team Providers Care General Labor Forklift Operator Name Role Phone Elton De La Fuente MD Primary Care Provider [phone] Allergies Active Allergy Reactions Criticality Noted Date [...] Department Care Team Description 10/17/2024 8:34 AM BELT PRESS OPERATOR - 10/17/2024 11:59 PM BELT PRESS OPERATOR Hospital Encounter [facility] - Interventional Radiology [address] [place] [address] [phone] Infection following a procedure, other surgical site, subsequent encounter Discharge Disposition: Discharge to home or self care 09/19/2024 10:31 AM BELT PRESS OPERATOR Anesthesia Event [facility] Operating Room [address] [place] [phone] Stephenie Rodriguez DO Tynes, Jessika Olegovna, CRNA 09/19/2024 10:03 AM BELT PRESS OPERATOR - 09/19/2024 12:08 PM BELT PRESS OPERATOR Surgery [facility] Operating Room [address] [place] [address] [phone] Kevin Brody MD INCISION AND DRAINAGE - LUMBAR 09/18/2024 7:53 PM BELT PRESS OPERATOR - 10/05/2024 11:00 AM BELT PRESS OPERATOR Hospital Encounter [facility] [address] [place] [address] [phone] Kita Astudillo MD Willis, MD Enoc Schroeder, MD Yessica Vigil Fatima A., MD Alkaade, Saad, MD Hammes, MD Good Chapman Renu, MD Wound infection (Primary Dx); Cellulitis of other specified site; Cellulitis, unspecified cellulitis site [L03.90]; Lumbar stenosis with neurogenic claudication [M48.062] Discharge Disposition: Discharge to home or self care 09/18/2024 Orders Only [facility] [address] [place] [phone] Kita Astudillo MD 09/17/2024 Patient Self-Triage [facility] [address] [place] [address] Mychart, Generic Provider from Last 3 Months Immunizations Immunization Administration Dates Next Due Influenza, Trivalent, Preservative [...] 0.6 oz pur e alcohol) Recovering alcoholic-whiskey [facility] Utilities Answer Date Recorded In the past 12 months has [employer], oil, or water [employer] threatened to shut off services in your [...] week 09/19/2024 How often do you attend [facility] or scientologist services? 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 Not on file Not on file Not on file Obstetrics History Last Filed Vital Signs Vital Sign Reading Time Taken Comments Blood Pressure 173/100 10/17/2024 9:20 AM BELT PRESS OPERATOR Pulse 69 10/17/2024 9:20 AM BELT PRESS OPERATOR Temperature 37.3 C (99.1 F) 10/17/2024 8:45 AM BELT PRESS OPERATOR Respiratory Rate 16 10/17/2024 9:20 AM BELT PRESS OPERATOR Oxygen Saturation 95% 10/17/2024 9:20 AM BELT PRESS OPERATOR Inhaled Oxygen Concentration - - Weight 87.1 kg (192 lb) 10/17/2024 8:45 AM BELT PRESS OPERATOR Height 182.9 cm (6') 10/17/2024 8:45 AM BELT PRESS OPERATOR Body Mass Index 26.04 10/17/2024 8:45 AM BELT PRESS OPERATOR Plan of Treatment Health Maintenance Due Date Last Done Comments Colon Cancer Screening-Colonoscopy 1970 Depression Screening 1970 Hepatitis C Screening 1970 Prostate Cancer Screening-PSA 1970 DTaP/Tdap/Td Vaccine (1 - Tdap) 1981 Hepatitis B Screening 1988 Regular Well Visit/Exam 18-64 1988 Pneumococcal vaccine <65 (1 of 2 - PCV) 1989 Zoster Vaccine (1 of 2) 2020 Influenza Vaccine Completed 09/21/2024 Medical Devices Implanted Type Area Shore Worker Device Identifier Shelf Expiration Date Model / Serial / Lot Biocomposites Stimulan Rapid Cure Kit Paste Automatic Teller Machine Servicer 5cc 12.5cc Bone Void 620-005 - [id number] Implanted:Qty: 1 on 08/13/2024 by Kevin Brody MD at [facility] N/A: Spine Lumbar [employer]ites [id number] 04/24/2027 620-005 / / [id number] [employer] Cage Spinal Lumbar 10 Degree Tlif Expandable 7-11.5mm Titanium [id number] - [id number] Implanted:Qty: 2 on 08/13/2024 by Kevin Brody MD at [facility] N/A: Spine Lumbar [employer] [id number] 10 / / [place] Spine 4.5mm 35mm Polyaxial Spine Screw Bone Deformity [id number] - [id number] Implanted:Qty: 6 on 08/13/2024 by Kevin Brody MD at [facility] N/A: Spine Lumbar Amina Spine [id number] 5 / / [place]ell Spine 4.5mm 75mm Contour Ulises Spinal Cocr [id number] - [id number] Implanted:Qty: 2 on 08/13/2024 by Kevin Brody MD at [facility] N/A: Spine Lumbar Amina Spine [id number] 5 / / Amina Spine 26mm Semiadjustable Transverse Spine Connector Ulises Posterior [id number] - [id number] Implanted:Qty: 1 on 08/13/2024 by Kevin Brody MD at [facility] N/A: Spine Lumbar Amina Spine [id number] 6A / / [place]ell Spine 32mm Semiadjustable Transverse Spine Connector Ulises Posterior [id number] - [id number] Implanted:Qty: 1 on 08/13/2024 by Kevin Brody MD at [facility] N/A: Spine Lumbar Amina Spine [id number] 2A / / Procedures Procedure Name Priority Date/Time Associated Diagnosis Comments IR PICC LINE PLACEMENT > 5 YEARS Schedule Routine, Read Routine (OP Routine) 10/17/2024 9:26 AM BELT PRESS OPERATOR Infection following a procedure, other surgical site, subsequent encounter EGFR Routine 09/28/2024 5:42 AM BELT PRESS OPERATOR RENAL FUNCTION PANEL Routine 09/28/2024 5:42 AM BELT PRESS OPERATOR EGFR Routine 09/27/2024 4:57 AM BELT PRESS OPERATOR RENAL FUNCTION PANEL Routine 09/27/2024 4:57 AM BELT PRESS OPERATOR EGFR Routine 09/26/2024 5:36 AM BELT PRESS OPERATOR RENAL FUNCTION PANEL Routine 09/26/2024 5:36 AM BELT PRESS OPERATOR EGFR Routine 09/25/2024 5:49 AM BELT PRESS OPERATOR RENAL FUNCTION PANEL Routine 09/25/2024 5:49 AM BELT PRESS OPERATOR EGFR Routine 09/24/2024 7:50 AM BELT PRESS OPERATOR RENAL FUNCTION PANEL Routine 09/24/2024 7:50 AM BELT PRESS OPERATOR CBC WITHOUT DIFFERENTIAL Routine 09/24/2024 7:50 AM BELT PRESS OPERATOR DRUGS OF ABUSE SCREEN, URINE WITHOUT CONFIRMATION Routine 09/23/2024 6:26 PM BELT PRESS OPERATOR EGFR Routine 09/23/2024 6:17 AM BELT PRESS OPERATOR RENAL FUNCTION PANEL Routine 09/23/2024 6:17 AM BELT PRESS OPERATOR CBC WITHOUT DIFFERENTIAL Routine 09/23/2024 6:17 AM BELT PRESS OPERATOR XR CHEST 1 VIEW ED Urgent/IP Urgent 09/22/2024 12:05 PM BELT PRESS OPERATOR HI INSJ NON-TUNNELED CENTRAL VENOUS CATH AGE 5 YR/> Routine 09/22/2024 11:15 AM BELT PRESS OPERATOR Wound infection EGFR Routine 09/22/2024 8:12 AM BELT PRESS OPERATOR RENAL FUNCTION PANEL Routine 09/22/2024 8:12 AM BELT PRESS OPERATOR CBC WITHOUT DIFFERENTIAL Routine 09/22/2024 8:12 AM BELT PRESS OPERATOR EGFR Routine 09/21/2024 6:09 AM BELT PRESS OPERATOR RENAL FUNCTION PANEL Routine 09/21/2024 6:09 AM BELT PRESS OPERATOR CBC WITHOUT DIFFERENTIAL Routine 09/21/2024 6:09 AM BELT PRESS OPERATOR VANCOMYCIN LEVEL TROUGH Timed 09/20/2024 5:36 PM BELT PRESS OPERATOR CBC WITHOUT DIFFERENTIAL Routine 09/20/2024 5:58 AM BELT PRESS OPERATOR MYCOLOGY (FUNGAL) CULTURE Routine 09/19/2024 11:08 AM BELT PRESS OPERATOR TISSUE AEROBIC AND ANAEROBIC CULTURE AND GRAM STAIN Routine 09/19/2024 11:08 AM BELT PRESS OPERATOR MYCOLOGY (FUNGAL) CULTURE Routine 09/19/2024 11:07 AM BELT PRESS OPERATOR AEROBIC AND ANAEROBIC CULTURE AND GRAM STAIN Routine 09/19/2024 11:07 AM BELT PRESS OPERATOR MYCOLOGY (FUNGAL) CULTURE Routine 09/19/2024 11:07 AM BELT PRESS OPERATOR AEROBIC AND ANAEROBIC CULTURE AND GRAM STAIN Routine 09/19/2024 11:07 AM BELT PRESS OPERATOR HI AN PROCEDURE PLACEHOLDER Routine 09/19/2024 10:49 AM BELT PRESS OPERATOR HI AN ELECTIVE ENDOTRACHEAL AIRWAY Routine 09/19/2024 10:49 AM BELT PRESS OPERATOR INCISION AND DRAINAGE - BACK 09/19/2024 10:30 AM BELT PRESS OPERATOR LUMBAR WOUND INFECTION DIFFERENTIAL AUTO Routine 09/19/2024 1:1 9 AM BELT PRESS OPERATOR CBC WITH AUTO DIFFERENTIAL Routine 09/19/2024 1:19 AM BELT PRESS OPERATOR EGFR Routine 09/19/2024 12:55 AM BELT PRESS OPERATOR COMPREHENSIVE METABOLIC PANEL Routine 09/19/2024 12:55 AM BELT PRESS OPERATOR BLOOD CULTURE Routine 09/19/2024 12:55 AM BELT PRESS OPERATOR BLOOD CULTURE Routine 09/19/2024 12:55 AM BELT PRESS OPERATOR from Last 3 Months Results * IR PICC Line Placement Over 5 Years of Age (10/17/2024 9:26 AM BELT PRESS OPERATOR) Anatomical Region Laterality Modality Body N/A X-Ray Angiograph y 10/17/2024 10:2 5 AM BELT PRESS OPERATOR Impressions 10/17/2024 10:25 AM BELT PRESS OPERATOR Successful nontunneled catheter placement. PLAN: The catheter is ready for immediate use. When treatment is completed, this catheter can be removed at the bedside according to standard hospital protocol. Electronically signed by: Patrica Garnica PA-C Narrative 10/17/2024 10:25 AM BELT PRESS OPERATOR EXAMINATION: NONTUNNELED CENTRAL VENOUS CATHETER PLACEMENT (STD) [...] was obtained. Prior to beginning the procedure, [place] Protocol was used to confirm the patient's [...] was obtained. Prior to beginning the procedure, [place] Protocol was used to confirm the patient's [...] al Result * eGFR (09/28/2024 5:42 AM BELT PRESS OPERATOR) eGFR >90 >=60 mL/min/1. 73 m2 Comment: [...] last reviewed 2021. Blood 09/28/2024 5:42 AM BELT PRESS OPERATOR 09/28/2024 5:54 AM BELT PRESS OPERATOR us Mitchell Grajeda MD LAB BLOOD ORDERABLES Final R esult [facility] [address] [place] [address] * (ABNORMAL) Renal function panel (09/28/2024 5:42 AM BELT PRESS OPERATOR) Sodium 139 135 - 145 mmol/L Potassium, pl 4.1 3.3 - 4.9 mmol/L [facility] Chloride 99 97 - 110 mmol/L [facility] CO2 27 22 - 32 mmol/L [facility] Anion gap 13 2 - 15 mmol/L [facility] BUN 15 6 - 25 mg/dL [facility] Creatinine 0.78(L) 0.80 - 1.30 mg/dL [facility] Glucose 108 70 - 199 mg/dL [facility] Comment: Interpretive Data Fasting glucose >/= [...] 2022. Calcium 9.1 8.5 - 10.3 mg/dL [facility] Phosphorus, pl 4.2 2.3 - 4.5 mg/dL [facility] Albumin 4.0 3.5 - 5.0 g/dL [facility] Blood 09/28/2024 5:42 AM BELT PRESS OPERATOR 09/28/2024 5:54 AM BELT PRESS OPERATOR us Mitchell Grajeda MD LAB BLOOD ORDERABLES Final R esult [facility] [address] [place] [address] * eGFR (09/27/2024 4:57 AM BELT PRESS OPERATOR) eGFR >90 >=60 mL/min/1. 73 m2 Comment: [...] last reviewed 2021. Blood 09/27/2024 4:57 AM BELT PRESS OPERATOR 09/27/2024 5:20 AM BELT PRESS OPERATOR Mitchell Grajeda MD LAB BLOOD ORDERABLES Final R esult Performing Organization Address City/[facility]/ZIP Co de Phone Number [facility] [address] [place] [address] * (ABNORMAL) Renal function panel (09/27/2024 4:57 AM BELT PRESS OPERATOR) Sodium 143 135 - 145 mmol/L Potassium, pl 4.1 3.3 - 4.9 mmol/L [facility] Chloride 103 97 - 110 mmol/L [facility] CO2 28 22 - 32 mmol/L [facility] Anion gap 12 2 - 15 mmol/L [facility] BUN 15 6 - 25 mg/dL [facility] Creatinine 0.77(L) 0.80 - 1.30 mg/dL [facility] Glucose 91 70 - 199 mg/dL [facility] Comment: Interpretive Data Fasting glucose >/= [...] 2022. Calcium 9.4 8.5 - 10.3 mg/dL [facility] Phosphorus, pl 4.4 2.3 - 4.5 mg/dL [facility] Albumin 3.9 3.5 - 5.0 g/dL [facility] Blood 09/27/2024 4:57 AM BELT PRESS OPERATOR 09/27/2024 5:20 AM BELT PRESS OPERATOR Mitchell Grajeda MD LAB BLOOD ORDERABLES Final R esult Performing Organization Address City/[facility]/ZIP Co de Phone Number [facility] [address] [place] [place] [address] * eGFR (09/26/2024 5:36 AM BELT PRESS OPERATOR) [facility] eGFR >90 >=60 mL/min/1. 73 m2 [...] last reviewed 2021. Blood 09/26/2024 5:36 AM BELT PRESS OPERATOR 09/26/2024 6:05 AM BELT PRESS OPERATOR us Mitchell Grajeda MD LAB BLOOD ORDERABLES Final R esult [facility] [address] [place] [address] * (ABNORMAL) Renal function panel (09/26/2024 5:36 AM BELT PRESS OPERATOR) [facility] Sodium 139 135 - 145 mmol/L Potassium, pl 4.0 3.3 - 4.9 mmol/L [facility] Chloride 99 97 - 110 mmol/L [facility] CO2 28 22 - 32 mmol/L [facility] Anion gap 12 2 - 15 mmol/L [facility] BUN 14 6 - 25 mg/dL [facility] Creatinine 0.73(L) 0.80 - 1.30 mg/dL [facility] Glucose 95 70 - 199 mg/dL [facility] Comment: Interpretive Data Fasting glucose >/= [...] 2022. Calcium 9.1 8.5 - 10.3 mg/dL [facility] Phosphorus, pl 4.3 2.3 - 4.5 mg/dL [facility] Albumin 4.0 3.5 - 5.0 g/dL [facility] Blood 09/26/2024 5:36 AM BELT PRESS OPERATOR 09/26/2024 6:05 AM BELT PRESS OPERATOR us Mitchell Grajeda MD LAB BLOOD ORDERABLES Final R esult [facility] [address] [place] [address] * eGFR (09/25/2024 5:49 AM BELT PRESS OPERATOR) eGFR >90 >=60 mL/min/1. 73 m2 Comment: [...] last reviewed 2021. Blood 09/25/2024 5:49 AM BELT PRESS OPERATOR 09/25/2024 6:01 AM BELT PRESS OPERATOR Mitchell Grajeda MD LAB BLOOD ORDERABLES Final R esult Performing Organization Address [facility]/ZIP Co de Phone Number [facility] [address] [place] [address] * (ABNORMAL) Renal function panel (09/25/2024 5:49 AM BELT PRESS OPERATOR) Pathologist [facility] Sodium 142 135 - 145 mmol/L Potassium, pl 3.9 3.3 - 4.9 mmol/L [facility] Chloride 103 97 - 110 mmol/L [facility] CO2 29 22 - 32 mmol/L [facility] Anion gap 10 2 - 15 mmol/L [facility] BUN 10 6 - 25 mg/dL [facility] Creatinine 0.70(L) 0.80 - 1.30 mg/dL [facility] Glucose 88 70 - 199 mg/dL [facility] Comment: Interpretive Data Fasting glucose >/= [...] 2022. Calcium 8.8 8.5 - 10.3 mg/dL [facility] Phosphorus, pl 4.1 2.3 - 4.5 mg/dL [facility] Albumin 3.7 3.5 - 5.0 g/dL [facility] Blood 09/25/2024 5:49 AM BELT PRESS OPERATOR 09/25/2024 6:01 AM BELT PRESS OPERATOR Mitchell Grajeda MD LAB BLOOD ORDERABLES Final R esult Performing Organization Address City/[facility]/ZIP Co de Phone Number [facility] [address] Department [place] [address] * eGFR (09/24/2024 7:50 AM BELT PRESS OPERATOR) Pathologist [facility] eGFR >90 >=60 mL/min/1. [...] last reviewed 2021. Blood 09/24/2024 7:50 AM BELT PRESS OPERATOR 09/24/2024 8:09 AM BELT PRESS OPERATOR us Mitchell Grajeda MD LAB BLOOD ORDERABLES Final R esult [facility] [address] [place] [address] * (ABNORMAL) CBC without differential (09/24/2024 7:50 AM BELT PRESS OPERATOR) [facility] WBC 11.4(H) 3.8 - 9.9 K/cumm Hgb 13.0 13.0 - 17.5 g/dL [facility] Hct 40.2 38.9 - 50.3 % [facility] Plt 280 150 - 400 K/cumm [facility] MPV 10.8 9.1 - 12.3 fL [facility] RBC 4.40 4.30 - 5.80 M/cumm [facility] MCV 91.4 81.3 - 96.4 fL [facility] MCH 29.5 27.1 - 33.3 pg [facility] MCHC 32.3 32.3 - 35.7 g/dL [facility] RDW CV 13.0 11.1 - 14.9 % [facility] RDW SD 43.6 35.7 - 48.1 fL [facility] NRBC abs 0.00 0.00 - 0.01 K/cumm [facility] Blood 09/24/2024 7:50 AM BELT PRESS OPERATOR 09/24/2024 8:10 AM BELT PRESS OPERATOR us Kevin Brody MD LAB BLOOD ORDERABLES Suzie gutierrez Result [facility] [address] Department [place] [address] * (ABNORMAL) Renal function panel (09/24/2024 7:50 AM BELT PRESS OPERATOR) Sodium 141 135 - 145 mmol/L Potassium, pl 4.0 3.3 - 4.9 mmol/L [facility] Chloride 101 97 - 110 mmol/L [facility] CO2 28 22 - 32 mmol/L [facility] Anion gap 12 2 - 15 mmol/L [facility] BUN 13 6 - 25 mg/dL [facility] Creatinine 0.75(L) 0.80 - 1.30 mg/dL [facility] Glucose 154 70 - 199 mg/dL [facility] Comment: Interpretive Data Fasting glucose >/= [...] 2022. Calcium 9.0 8.5 - 10.3 mg/dL [facility] Phosphorus, pl 3.7 2.3 - 4.5 mg/dL [facility] Albumin 3.9 3.5 - 5.0 g/dL [facility] Blood 09/24/2024 7:50 AM BELT PRESS OPERATOR 09/24/2024 8:09 AM BELT PRESS OPERATOR us Mitchell Grajeda MD LAB BLOOD ORDERABLES Final R esult [facility] [address] Department [place] [address] * (ABNORMAL) Drugs of Abuse Screen, Urine without Confirmation (09/23/2024 6:26 PM BELT PRESS OPERATOR) Amphetamine, ur Not Detected CutOff 500ng/mL Comment: Interpretive Data - Amphetamines: Samples containing greater than 500 ng/mL d-methamphetamine or other cross-reacting amphetamine compounds are reported as positive. Amphetamine immunoassays are subject to significant false positive rates due to cross-reactivity of non-amphetamine drugs. Confirmatory testing required for definitive results. Current Interpretive Data was last reviewed 2023. Barbiturates, ur Not Detected CutOff 200ng/mL [facility] Comment: Interpretive Data - Barbiturates: Samples containing greater than 200 ng/mL secobarbital or other cross-reacting barbiturate compounds are reported as positive. False positive and false negative results are possible. Confirmatory testing required for definitive results. Current Interpretive Data was last reviewed 2023. Benzodiazepines, ur Screen Positive, presumptive (A) CutOff 100ng/mL [facility] Comment: Interpretive Data - Benzodiazepines: Samples containing greater than 100 ng/mL nordiazepam or other cross-reacting compounds are reported as positive. False positive and false negative results are possible. Confirmatory testing required for definitive results. Current Interpretive Data was last reviewed 2023. Cannabinoids, ur Not Detected CutOff 50 ng/mL [facility] Comment: Interpretive Data - Cannabinoids: Samples containing greater than 50 ng/mL delta-9 THC -COOH or other cross- reacting compounds are reported as positive. False positive and false negative results are possible. Confirmatory testing required for definitive results. Current Interpretive Data was last reviewed 2023. Cocaine, ur Not Detected CutOff 150ng/mL [facility] Comment: Interpretive Data - Cocaine: Samples containing greater than 150 ng/mL benzoylecgonine or other cross- reacting compounds are reported as positive. False positive and false negative results are possible. Confirmatory testing required for definitive results. Current Interpretive Data was last reviewed 2023. Fentanyl, Ur Not Detected CutOff 5 ng/mL [facility] Comment: Interpretive Data - Fentanyl: Samples containing greater than 5 ng/mL norfentanyl, fentanyl, or other cross-reacting fentanyl compounds are reported as positive. False positive and false negative results are possible. Confirmatory testing required for definitive results. Current Interpretive Data was last reviewed 2023. Methadone, ur Not Detected CutOff 300ng/mL [facility] Comment: Interpretive Data - Methadone: Samples containing greater than 300 ng/mL d,l-methadone or other cross-reacting compounds are reported as positive. False positive and false negative results are possible. Confirmatory testing required for definitive results. Current Interpretive Data was last reviewed 2023. Opiates, ur Not Detected CutOff 300ng/mL [facility] Comment: Interpretive Data - Opiates: Samples containing greater than 300 ng/mL morphine or other cross-reacting compounds are reported as positive. False positive and false negative results are possible. Confirmatory testing required for definitive results. Current Interpretive Data was last reviewed 2023. Oxycodone, ur Screen Positive, presumptive (A) CutOff 100ng/mL [facility] Comment: Interpretive Data - Oxycodone: Samples containing greater than 100 ng/mL oxycodone or other cross-reacting compounds are reported as positive. False positive and false negative results are possible. Confirmatory testing required for definitive results. Current Interpretive Data was last reviewed 2023. Phencyclidine, ur Not Detected CutOff 25 ng/mL [facility] Comment: Interpretive Data - Phencyclidine: Samples containing greater than 25 ng/mL phencyclidine or other cross-reacting compounds are reported as positive. False positive and false negative results are possible. Confirmatory testing required for definitive results. Current Interpretive Data was last reviewed 2023. Urine Creatinine 87 mg/dL [facility] Comment: Interpretive Data Urine Creatinine: < 10 mg/dL is extremely dilute = or > 10 but < 20 mg/dL is dilute = or > 20 mg/dL is normal Current Interpretive Data was last revised on 2017. Urine 09/23/2024 6:26 PM BELT PRESS OPERATOR 09/23/2024 6:33 PM BELT PRESS OPERATOR Narrative [facility] - 09/23/2024 7:11 PM BELT PRESS OPERATOR Drug of Abuse screening is performed by immunoassay for medical purposes only. This is not to be used for Pain Management purposes. us Jovany Stubbs MD LAB URINE ORDERABLES Final Result Performing Organization Address [facility]/ZIP Co de Phone Number [facility] [address] [place] [place] [address] * eGFR (09/23/2024 6:17 AM BELT PRESS OPERATOR) eGFR >90 >=60 mL/min/1. 73 m2 Comment: [...] last reviewed 2021. Blood 09/23/2024 6:17 AM BELT PRESS OPERATOR 09/23/2024 6:34 AM BELT PRESS OPERATOR Mitchell Grajeda MD LAB BLOOD ORDERABLES Final R esult Performing Organization Address [facility]/ZIP Co de Phone Number [facility] [address] Department [employer] [place] [address] * (ABNORMAL) CBC without differential (09/23/2024 6:17 AM BELT PRESS OPERATOR) [facility] WBC 8.7 3.8 - 9.9 K/cumm Hgb 12.7(L) 13.0 - 17.5 g/dL [facility] Hct 39.6 38.9 - 50.3 % [facility] Plt 244 150 - 400 K/cumm [facility] MPV 10.9 9.1 - 12.3 fL [facility] RBC 4.30 4.30 - 5.80 M/cumm [facility] MCV 92.1 81.3 - 96.4 fL [facility] MCH 29.5 27.1 - 33.3 pg [facility] MCHC 32.1(L) 32.3 - 35.7 g/dL [facility] RDW CV 13.0 11.1 - 14.9 % [facility] RDW SD 43.8 35.7 - 48.1 fL [facility] NRBC abs 0.00 0.00 - 0.01 K/cumm [facility] Blood 09/23/2024 6:17 AM BELT PRESS OPERATOR 09/23/2024 6:34 AM BELT PRESS OPERATOR us Kevin Brody MD LAB BLOOD ORDERABLES Suzie gutierrez Result [facility] [address] [place] [address] * (ABNORMAL) Renal function panel (09/23/2024 6:17 AM BELT PRESS OPERATOR) [facility] Sodium 141 135 - 145 mmol/L Potassium, pl 4.1 3.3 - 4.9 mmol/L [facility] Chloride 100 97 - 110 mmol/L [facility] CO2 30 22 - 32 mmol/L [facility] Anion gap 11 2 - 15 mmol/L [facility] BUN 10 6 - 25 mg/dL [facility] Creatinine 0.72(L) 0.80 - 1.30 mg/dL [facility] Glucose 95 70 - 199 mg/dL [facility] Comment: Interpretive Data Fasting glucose >/= [...] 2022. Calcium 8.7 8.5 - 10.3 mg/dL [facility] Phosphorus, pl 3.9 2.3 - 4.5 mg/dL [facility] Albumin 3.5 3.5 - 5.0 g/dL [facility] Blood 09/23/2024 6:17 AM BELT PRESS OPERATOR 09/23/2024 6:34 AM BELT PRESS OPERATOR Mitchell Grajeda MD LAB BLOOD ORDERABLES Final R esult [facility] [address] [place] [address] * X-ray chest 1 view (Portable) (09/22/2024 12:05 PM BELT PRESS OPERATOR) Anatomical Region Laterality Modality Body, Chest N/A Computed Radiogr aphy 09/22/2024 12:4 0 PM BELT PRESS OPERATOR Impressions 09/22/2024 12:40 PM BELT PRESS OPERATOR Left upper extremity PICC tip in the mid SVC. Electronically signed by: Akil Cerda D.O. Narrative 09/22/2024 12:40 PM BELT PRESS OPERATOR EXAMINATION: XR CHEST 1 VIEW HISTORY: check line placement COMPARISON: Radiograph 03/30/2024 FINDINGS: Left upper extremity PICC tip in the mid SVC. Normal cardiomediastinal silhouette and pulmonary vasculature. No focal airspace opacity. No pneumothorax or large pleural effusion. No acute osseous abnormality. Procedure Note Akil Cerda, - 09/22/2024 EXAMINATION: XR CHEST 1 VIEW [...] IMG XR PROCEDURES Fi nal Result * HI INSJ NON-TUNNELED CENTRAL VENOUS CATH AGE 5 YR/> (09/22/2024 11:15 AM BELT PRESS OPERATOR) Narrative Sue Steinberg PA - 09/22/2024 11:15 AM BELT PRESS OPERATOR Sue Steinberg PA 09/22/2024 11:46 AM PICC Line Insertion Date/Time: 09/22/2024 11:15 AM Performed by: Sue Steinberg PA Authorized by: Sue Steinberg PA [place] Protocol: RN Notified of Procedure: yes Informed consent: Risks, benefits, alternatives discussed and patient/customer success representative/guardian agrees and accepts Patient's stated name/ [...] Final Result * eGFR (09/22/2024 8:12 AM BELT PRESS OPERATOR) Pathologist [facility] eGFR >90 >=60 mL/min/1. [...] last reviewed 2021. Blood 09/22/2024 8:12 AM BELT PRESS OPERATOR 09/22/2024 8:51 AM BELT PRESS OPERATOR us Mitchell Grajeda MD LAB BLOOD ORDERABLES Final R esult [facility] [address] Department of Laboratories [place], [place] [id number] * CBC without differential (09/22/2024 8:12 AM BELT PRESS OPERATOR) [facility] WBC 8.5 3.8 - 9.9 K/cumm Hgb 13.6 13.0 - 17.5 g/dL [facility] Hct 41.9 38.9 - 50.3 % [facility] Plt 241 150 - 400 K/cumm [facility] MPV 11.4 9.1 - 12.3 fL [facility] RBC 4.59 4.30 - 5.80 M/cumm [facility] MCV 91.3 81.3 - 96.4 fL [facility] MCH 29.6 27.1 - 33.3 pg [facility] MCHC 32.5 32.3 - 35.7 g/dL [facility] RDW CV 13.0 11.1 - 14.9 % [facility] RDW SD 43.8 35.7 - 48.1 fL [facility] NRBC abs 0.00 0.00 - 0.01 K/cumm [facility] Blood 09/22/2024 8:12 AM BELT PRESS OPERATOR 09/22/2024 8:52 AM BELT PRESS OPERATOR us Kevin Brody MD LAB BLOOD ORDERABLES Suzie l Result [facility] [address] [place] [address] * (ABNORMAL) Renal function panel (09/22/2024 8:12 AM BELT PRESS OPERATOR) [facility] Sodium 143 135 - 145 mmol/L Potassium, pl 3.7 3.3 - 4.9 mmol/L [facility] Chloride 100 97 - 110 mmol/L [facility] CO2 31 22 - 32 mmol/L [facility] Anion gap 12 2 - 15 mmol/L [facility] BUN 9 6 - 25 mg/dL [facility] Creatinine 0.77(L) 0.80 - 1.30 mg/dL [facility] Glucose 144 70 - 199 mg/dL [facility] Comment: Interpretive Data Fasting glucose >/= [...] 2022. Calcium 9.3 8.5 - 10.3 mg/dL [facility] Phosphorus, pl 4.6(H) 2.3 - 4.5 mg/dL [facility] Albumin 4.1 3.5 - 5.0 g/dL [facility] Blood 09/22/2024 8:12 AM BELT PRESS OPERATOR 09/22/2024 8:51 AM BELT PRESS OPERATOR us Mitchell Grajeda MD LAB BLOOD ORDERABLES Final R esult [facility] [address] [place] [address] * eGFR (09/21/2024 6:09 AM BELT PRESS OPERATOR) eGFR >90 >=60 mL/min/1. 73 m2 Comment: [...] last reviewed 2021. Blood 09/21/2024 6:09 AM BELT PRESS OPERATOR 09/21/2024 7:01 AM BELT PRESS OPERATOR us Mitchell Grajeda MD LAB BLOOD ORDERABLES Final R esult Performing Organization Address [facility]/ZIP Co de Phone Number [facility] [address] [place] [employer] [place] [address] * (ABNORMAL) CBC without differential (09/21/2024 6:09 AM BELT PRESS OPERATOR) [facility] WBC 8.8 3.8 - 9.9 K/cumm Hgb 11.7(L) 13.0 - 17.5 g/dL [facility] Hct 36.0(L) 38.9 - 50.3 % [facility] Plt 162 150 - 400 K/cumm [facility] MPV 12.0 9.1 - 12.3 fL [facility] RBC 3.93(L) 4.30 - 5.80 M/cumm [facility] MCV 91.6 81.3 - 96.4 fL [facility] MCH 29.8 27.1 - 33.3 pg [facility] MCHC 32.5 32.3 - 35.7 g/dL [facility] RDW CV 13.0 11.1 - 14.9 % [facility] RDW SD 44.1 35.7 - 48.1 fL [facility] NRBC abs 0.00 0.00 - 0.01 K/cumm [facility] Blood 09/21/2024 6:09 AM BELT PRESS OPERATOR 09/21/2024 7:01 AM BELT PRESS OPERATOR us Kevin Brody MD LAB BLOOD ORDERABLES Suzie l Result Performing Organization Address City/[facility]/ZIP Co de Phone Number [facility] [address] Department [employer] [place] [address] * (ABNORMAL) Renal function panel (09/21/2024 6:09 AM BELT PRESS OPERATOR) [facility] Sodium 143 135 - 145 mmol/L Potassium, pl 3.5 3.3 - 4.9 mmol/L [facility] Chloride 105 97 - 110 mmol/L [facility] CO2 26 22 - 32 mmol/L [facility] Anion gap 12 2 - 15 mmol/L [facility] BUN 10 6 - 25 mg/dL [facility] Creatinine 0.70(L) 0.80 - 1.30 mg/dL [facility] Glucose 102 70 - 199 mg/dL [facility] Comment: Interpretive Data Fasting glucose >/= [...] 2022. Calcium 8.6 8.5 - 10.3 mg/dL [facility] Phosphorus, pl 3.6 2.3 - 4.5 mg/dL [facility] Albumin 3.3(L) 3.5 - 5.0 g/dL [facility] Blood 09/21/2024 6:09 AM BELT PRESS OPERATOR 09/21/2024 7:01 AM BELT PRESS OPERATOR Mitchell Grajeda MD LAB BLOOD ORDERABLES Final R esult [facility] [address] [place] [address] * (ABNORMAL) Vancomycin level trough Please draw trough at this specific time. (09/20/2024 5:36 PM BELT PRESS OPERATOR) Vancomycin trough 7.4(L) 10.0 - 20.0 mcg/mL Blood 09/20/2024 5:36 PM BELT PRESS OPERATOR 09/20/2024 5:40 PM BELT PRESS OPERATOR Narrative [facility] - 09/20/2024 6:00 PM BELT PRESS OPERATOR Please draw trough at this specific time. Mitchell Grajeda MD LAB BLOOD ORDERABLES Final R esult Performing Organization Address [facility] Co de Phone Number [facility] [address] [place] [place] [address] * (ABNORMAL) CBC without differential (09/20/2024 5:58 AM BELT PRESS OPERATOR) Pathologist [facility] WBC 17.4(H) 3.8 - 9.9 K/cumm Hgb 12.8(L) 13.0 - 17.5 g/dL [facility] Hct 40.4 38.9 - 50.3 % [facility] Plt 174 150 - 400 K/cumm [facility] MPV 12.4(H) 9.1 - 12.3 fL [facility] RBC 4.37 4.30 - 5.80 M/cumm [facility] MCV 92.4 81.3 - 96.4 fL [facility] MCH 29.3 27.1 - 33.3 pg [facility] MCHC 31.7(L) 32.3 - 35.7 g/dL [facility] RDW CV 12.9 11.1 - 14.9 % [facility] RDW SD 44.1 35.7 - 48.1 fL [facility] NRBC abs 0.00 0.00 - 0.01 K/cumm [facility] Blood 09/20/2024 5:5 8 AM BELT PRESS OPERATOR 09/20/2024 6:35 AM BELT PRESS OPERATOR us Kevin Brody MD LAB BLOOD ORDERABLES Suzie l Result Performing Organization Address [facility] Co de Phone Number [facility] [address] [place] [place] [address] * (ABNORMAL) Tissue aerobic and anaerobic culture and gram stain Tissue Back, lower (09/19/2024 11:08AM BELT PRESS OPERATOR) Pathologist [facility] Direct Specimen Exam Stain: No polymorphonuclear leukocytes seen. No organisms seen. Report Final Report: Very light growth Staphylococcus aureus, methicillin susceptible (.) [facility] Organism STAPHYLOCOCCUS AUREUS, METHICILLIN SUSCEPTIBLE [facility] Tissue (Back, lower) 09/19/2024 11:08 AM BELT PRESS OPERATOR 09/19/2024 12:11 PM BELT PRESS OPERATOR Narrative [facility] - 09/22/2024 9:51 AM BELT PRESS OPERATOR Deep Tissue Organism Antibiotic Method Susceptibility Staphylococcus [...] MICROBIOLOGY - GENERA L ORDERABLES Final Result [facility] [address] [facility] [employer] [place], [place] [id number] * Mycology (fungal) culture Tissue Back, lower (09/19/2024 11:08 AM BELT PRESS OPERATOR) Report Final Report: No fungus isolated Tissue (Back, lower) 09/19/2024 11:08 AM BELT PRESS OPERATOR 09/19/2024 12:11 PM BELT PRESS OPERATOR [facility] - 10/17/2024 1:00 PM BELT PRESS OPERATOR Deep Tissue Mycology cultures are held for 4 weeks. us Kevin Brody MD LAB MICROBIOLOGY - GENERA L ORDERABLES Final Result Performing Organization Address City/[facility]/ZIP Co de Phone Number [facility] [address] [facility] [place] [address] * Mycology (fungal) culture Abscess Back, lower (09/19/2024 11:07 AM BELT PRESS OPERATOR) Report Final Report: No fungus isolated Abscess (Back, lower) 09/19/2024 11:07 AM BELT PRESS OPERATOR 09/19/2024 12:25 PM BELT PRESS OPERATOR [place] [facility] - 10/17/2024 1:00 PM BELT PRESS OPERATOR Deep Mycology cultures are held for 4 weeks. us Kevin Brody MD LAB MICROBIOLOGY - GENERA L ORDERABLES Final Result Performing Organization Address City/[facility]/ZIP Co de Phone Number [facility] [address] [facility] [place] [address] * Mycology (fungal) culture Abscess Back, lower (09/19/2024 11:07 AM BELT PRESS OPERATOR) Report Final Report: No fungus isolated Abscess (Back, lower) 09/19/2024 11:07 AM BELT PRESS OPERATOR 09/19/2024 12:25 PM BELT PRESS OPERATOR N[facility]ative [facility] 10/17/2024 1:00 PM BELT PRESS OPERATOR Superficial Mycology cultures are held for 4 weeks. us Kevin Brody MD LAB MICROBIOLOGY - GENERA L ORDERABLES Final Result Performing Organization Address [facility] Co de Phone Number [facility] [address] [place] [address] * (ABNORMAL) Aerobic and anaerobic culture and gram stain Abscess Back, lower (09/19/2024 11:07 AM BELT PRESS OPERATOR) Direct Specimen Exam Stain: No polymorphonuclear leukocytes seen. No organisms seen. Report Final Report: Light growth of: Staphylococcus aureus, methicillin susceptible Susceptibility reported on this organism on previous culture [id number] (.) [facility] Organism STAPHYLOCOCCUS AUREUS, METHICILLIN SUSCEPTIBLE [facility] Abscess (Back, lower) 09/19/2024 11:07 AM BELT PRESS OPERATOR 09/19/2024 12:25 PM BELT PRESS OPERATOR Narrative [facility] - 09/23/2024 8:55 AM BELT PRESS OPERATOR Deep us Kevin Brody MD LAB MICROBIOLOGY - GENERA L ORDERABLES Final Result Performing Organization Address City/[facility] Co de Phone Number [facility] [address] [facility] [employer] [place], [place] [id number] * (ABNORMAL) Aerobic and anaerobic culture and gram stain Abscess Back, lower (09/19/2024 11:07 AM BELT PRESS OPERATOR) Direct Specimen Exam Stain: Few polymorphonuclear leukocytes seen. Rare Gram Positive Cocci Report Final Report: Moderate growth of: Staphylococcus aureus, methicillin susceptible (.) [facility] Organism STAPHYLOCOCCUS AUREUS, METHICILLIN SUSCEPTIBLE [facility] Abscess (Back, lower) 09/19/2024 11:07 AM BELT PRESS OPERATOR 09/19/2024 12:25 PM BELT PRESS OPERATOR [place] [facility] - 09/23/2024 8:49 AM BELT PRESS OPERATOR Superficial Organism Antibiotic Method Susceptibility Staphylococcus aureus, [...] MICROBIOLOGY - GENERA L ORDERABLES Final Result [facility] [address] [place] [address] * HI AN ELECTIVE ENDOTRACHEAL AIRWAY, HI AN PROCEDURE PLACEHOLDER (09/19/2024 10:49 AM BELT PRESS OPERATOR) Sonia Carrera CRNA - 09/19/2024 10:49 AM BELT PRESS OPERATOR Sonia David CRNA 09/19/2024 10:50 AM Airway Patient location: OR Urgency: elective Indications for airway management: anesthesia Difficult airway: no Staff: Placed by: JOINER: Sonia David CRNA Emergent airway documentation: Risks [...] * (ABNORMAL) Differential, auto (09/19/2024 1:19 AM BELT PRESS OPERATOR) Neutrophil abs 13.1(H) 1.5 - 6.5 K/cumm Imm gran abs 0.1 0.0 - 0.1 K/cumm [facility] Lymphocyte abs 1.3 0.8 - 3.3 K/cumm [facility] Monocyte abs 1.3(H) 0.2 - 0.8 K/cumm [facility] Eosinophil abs 0.0 0.0 - 0.5 K/cumm [facility] Basophil abs 0.0 0.0 - 0.1 K/cumm [facility] Neutrophil pct 83.0 % [facility] Comment: Interpretive Data Percent cell count reference ranges are not reported, since discordance with absolute values may lead to misinterpretation of CBC data. Current Interpretive Data was last revised on 2018. Imm gran pct 0.5 % [facility] Comment: Interpretive Data Percent cell count reference ranges are not reported, since discordance with absolute values may lead to misinterpretation of CBC data. Current Interpretive Data was last revised on 2018. Lymphocyte pct 8.0 % [facility] Comment: Interpretive Data Percent cell count reference ranges are not reported, since discordance with absolute values may lead to misinterpretation of CBC data. Current Interpretive Data was last revised on 2018. Monocyte pct 8.3 % [facility] Comment: Interpretive Data Percent cell count reference ranges are not reported, since discordance with absolute values may lead to misinterpretation of CBC data. Current Interpretive Data was last revised on 2018. Eosinophil pct 0.1 % [facility] Comment: Interpretive Data Percent cell count reference ranges are not reported, since discordance with absolute values may lead to misinterpretation of CBC data. Current Interpretive Data was last revised on 2018. Basophil pct 0.1 % [facility] Comment: Interpretive Data Percent cell count reference ranges are not reported, since discordance with absolute values may lead to misinterpretation of CBC data. Current Interpretive Data was last revised on 2018. Blood 09/19/2024 1:19 AM BELT PRESS OPERATOR 09/19/2024 1:19 AM BELT PRESS OPERATOR Kita Astudillo MD LAB BLOOD ORDERABLES Final Resu lt Performing Organization Address [facility]/ZIP Co de Phone Number [facility] [address] [place] [employer] [place] [address] * (ABNORMAL) CBC with auto differential (09/19/2024 1:19 AM BELT PRESS OPERATOR) WBC 15.8(H) 3.8 - 9.9 K/cumm Hgb 13.0 13.0 - 17.5 g/dL [facility] Hct 39.4 38.9 - 50.3 % [facility] Plt 150 150 - 400 K/cumm [facility] MPV 12.1 9.1 - 12.3 fL [facility] RBC 4.38 4.30 - 5.80 M/cumm [facility] MCV 90.0 81.3 - 96.4 fL [facility] MCH 29.7 27.1 - 33.3 pg [facility] MCHC 33.0 32.3 - 35.7 g/dL [facility] RDW CV 12.7 11.1 - 14.9 % [facility] RDW SD 42.4 35.7 - 48.1 fL [facility] NRBC abs 0.00 0.00 - 0.01 K/cumm [facility] Blood 09/19/2024 1:19 AM BELT PRESS OPERATOR 09/19/2024 1:19 AM BELT PRESS OPERATOR us Kita Astudillo MD LAB BLOOD ORDERABLES Final Resu lt Performing Organization Address City/[facility]/ZIP Co de Phone Number [facility] [address] Department [employer] [place] [address] * eGFR (09/19/2024 12:55 AM BELT PRESS OPERATOR) eGFR >90 >=60 mL/min/1. 73 m2 Comment: [...] reviewed 2021. Blood 09/19/2024 12:5 5 AM BELT PRESS OPERATOR 09/19/2024 1:19 AM BELT PRESS OPERATOR Kita Astudillo MD LAB BLOOD ORDERABLES Final Resu lt [facility] [address] [place] [address] * Blood culture Blood (09/19/2024 12:55 AM BELT PRESS OPERATOR) Report Final Report: No growth Blood 09/19/2024 12:5 5 AM BELT PRESS OPERATOR 09/19/2024 2:14 AM BELT PRESS OPERATOR Narrative [facility] - 09/24/2024 7:01 AM BELT PRESS OPERATOR From a different site than #1. Collection->Peripheral [...] organism identification may be performed using the GAMINSIDEArray Blood Culture Identification panel. This assay detects microbial DNA in a blood culture broth. This assay has been cleared by the [facility] Food and Drug Administration and its performance characteristics have been verified by the [facility]. Interpretive data was last revised on October 27, 2022. Kita Astudillo MD LAB MICROBIOLOGY [facility] Final Result Performing Organization Address City/[facility]/ZIP Co de Phone Number [facility] [address] [place] [address] * Blood culture Blood (09/19/2024 12:55 AM BELT PRESS OPERATOR) Report Final Report: No growth Blood 09/19/2024 12:5 5 AM BELT PRESS OPERATOR 09/19/2024 2:14 AM BELT PRESS OPERATOR Narrative [facility] - 09/24/2024 7:01 AM BELT PRESS OPERATOR Collection->Peripheral Interpretive Data 1. Blood cultures are incubated and monitored continuously for 5 days (120 hours). The first negative report is issued within 24 hours of receipt in the laboratory. 2. All positive cultures are resulted and called to physicians/care providers as soon as they are detected. 3. A rapid molecular test for organism identification may be performed using the xTV FilmArray Blood Culture Identification panel. This assay detects microbial DNA in a blood culture broth. This assay has been cleared by the [place] Food and Drug Administration and its performance characteristics have been verified by the [facility]. Interpretive data was last revised on October 27, 2022. Kita Astudillo MD LAB MICROBIOLOGY [facility] [[email or web address]] MELVIN NEGRON Final Result Performing Organization Address City/[facility] Co de Phone Number [facility] [address] [place] [address] * (ABNORMAL) Comprehensive metabolic panel (09/19/2024 12:55 AM BELT PRESS OPERATOR) Sodium 136 135 - 145 mmol/L Potassium, pl 4.1 3.3 - 4.9 mmol/L [facility] Comment:Hemolyzed; potassium value may be falsely elevated by as much as 0.3 - 0.5 mmol/L. Suggest redraw and reanalysis Chloride 98 97 - 110 mmol/L [facility] CO2 26 22 - 32 mmol/L [facility] Anion gap 12 2 - 15 mmol/L [facility] BUN 8 6 - 25 mg/dL [facility] Creatinine 0.70(L) 0.80 - 1.30 mg/dL [facility] Glucose 139 70 - 199 mg/dL [facility] Comment: Interpretive Data Fasting glucose >/= [...] 2022. Calcium 9.1 8.5 - 10.3 mg/dL [facility] Bilirubin, total 0.9 0.1 - 1.2 mg/dL [facility] Protein, pl 6.7 6.5 - 8.5 g/dL [facility] Albumin 3.7 3.5 - 5.0 g/dL [facility] Alk phos 92 40 - 130 Units/L [facility] ALT 18 7 - 55 Units/L [facility] AST 22 10 - 50 Units/L [facility] Comment:Slightly Hemolyzed S pecimen Blood 09/19/2024 12:5 5 AM BELT PRESS OPERATOR 09/19/2024 1:19 AM BELT PRESS OPERATOR us Kita Astudillo MD LAB BLOOD ORDERABLES Final Resu lt [facility] [address] [place] [address] from Last 3 Months Insurance [place] Advance Direct[place] For more information, please contact: [phone] * Full Code (Latest Code Status on File) Date Activated Date Inactivated Comments 09/19/2024 12:47 PM 10/05/2024 3:11 PM * Full Code Date Activated Date Inactivated Comments 09/18/2024 8:09 PM 09/19/2024 12:47 PM * Full Code Date Activated Date Inactivated Comments 08/13/2024 2:58 PM 08/14/2024 4:58 PM Care 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
--- OUTSIDE RECORDS SUMMARY | 2024-11-18 10:24 | XMS_ITS | Referral Summary ---
Author Organization [facility] Address [address] [place] [address] Care Team Providers Care Warehouse Record Clerk Name Role Phone Elton De La Fuente MD Primary Care Provider Encounters Date Type Department Care Team Description 10/17/2024 8:34 AM [employer]WO[employer] FLOORING SPECIALIST - 10/17/2024 11:59 PM [employer] F[employer]ORING SPECIALIST Hospital Encounter [facility] - Interventional Radiology [address] [place] [phone] Infection following a procedure, other surgical site, subsequent encounter Discharge Disposition: Discharge to home or self care 09/18/2024 7:53 PM [employer]WO[employer] FLOORING SPECIALIST - 10/05/2024 11:00 AM [employer] FLOORING SPECIALIST Hospital Encounter [facility] [address] [place] [phone] Kita Astudillo MD Willis, Devin Ray, MD Sufi, MD Yessica Vigil Fatima A., MD Alkaade, Saad, MD Hammes, Amanda Jane, MD Teckchandani, Renu, MD Wound infection (Primary Dx); Cellulitis of other specified site; Cellulitis, unspecified cellulitis site [L03.90]; Lumbar stenosis with neurogenic claudication [M48.062] Discharge Disposition: Discharge to home or self care 09/19/2024 10:31 AM [employer]ARDWOOD FLOORING SPECIALIST Anesthesia Event [facility] Operating Room [address] [place] [phone] Stephenie Rodriguez DO Tynes, Jessika Olegovna, CRNA 09/19/2024 10:03 AM [employer]WO[employer] FLOORING SPECIALIST - 09/19/2024 12:08 PM [employer] FLOORING SPECIALIST Surgery [facility] Operating Room [address] [place] [phone] Kevin Brody MD INCISION AND DRAINAGE - LUMBAR 09/18/2024 Orders Only [address] [phone] Kita Astudillo MD 09/17/2024 Patient Self-Triage [facility] HealthCare/ Physicians [facility] [place] [address] Mychart, Generic Provider from Last 3 Months Allergies Active Allergy [...] Emphysema lung 07/23/2024 Tobacco use 07/23/2024 Immunizations Immunization Administration Dates Next Due Influenza, Trivalent, Preservative Free, Intramu scular 09/21/2024 Social History Tobacco Use Types Packs/Day Years Used Date Smoking Tobacco: Every Day Cigarettes 0.2 20 Smokeless Tobacco: Never Tobacco Cessation:Ready to Q uit: Not Asked; Counseling Given: Not Answered Alcohol Use Standard Drinks/Week Comments Not Currently 0 (1 standard drink = 0.6 oz pur e alcohol) Recovering alcoholic-whiskey [facility] [employer] Answer Date Recorded In the past 12 months has [employer], oil, or water [employer] threatened to shut off services in your [...] week 09/19/2024 How often do you attend [facility] or zoroastrianism services? Never 09/19/2024 Do you belong to any clubs o r organizations such as cheondoism groups, unions, fraternal or athletic groups, or [...] any time in the past 12 m [facility], were you homeless or living in a usp (including now)? No 09/19/2024 Personal Safety Answer Date Recorded Have you ever been in or are you currently in a harmful physical or emotional relationship or is someone making you feel afraid or unsafe? 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 file Not on file Not on file Last Filed Vital Signs Vital Sign Reading Time Taken Comments Blood Pressure 173/100 10/17/2024 9:20 AM [employer]WO[employer] FLOORING SPECIALIST Pulse 69 10/17/2024 9:20 AM H[employer]WOOD FLOORING SPECIALIST Temperature 37.3 C (99.1 F) 10/17/2024 8:45 AM [employer]WOOD FLOORING SPECIALIST Respiratory Rate 16 10/17/2024 9:20 AM [employer]WO[employer] FLOORING SPECIALIST Oxygen Saturation 95% 10/17/2024 9:20 AM HARDWOOD FLOORING SPECIALIST Inhaled Oxygen Concentration - - Weight 87.1 kg (192 lb) 10/17/2024 8:45 AM HARDWOOD FLOORING SPECIALIST Height 182.9 cm (6') 10/17/2024 8:45 AM H[employer]WOOD FLOORING SPECIALIST Body Mass Index 26.04 10/17/2024 8:45 AM HARDWOOD FLOORING SPECIALIST Plan of Treatment Not on file Medical Devices Implanted Type Area Marketing Intern Device Identifier Shelf Expiration Date Model / Serial / Lot Biocomposites Stimulan Rapid Cure Kit P[employer] Hand 5cc 12.5cc Bone Void 620-005 - [id number] Implanted:Qty: 1 on 08/13/2024 by Kevin Brody MD at [facility] N/A: Spine Lumbar Biocomposites [id number] 04/24/2027 620-005 / / [id number] [employer] Cage Spinal Lumbar 10 Degree Tlif Expandable 7-11.5mm Titanium [id number] - [id number] Implanted:Qty: 2 on 08/13/2024 by Kevin Brody MD at [facility] N/A: Spine Lumbar [employer] [id number] 10 / / Amina Spine 4.5mm 35mm Polyaxial Spine Screw Bone Deformity [id number] - [id number] Implanted:Qty: 6 on 08/13/2024 by Kevin Brody MD at [facility] N/A: Spine Lumbar Amina Spine [id number] 5 / / Evergreen Spine 4.5mm 75mm Contour Ulises Spinal Cocr [id number] - [id number] Implanted:Qty: 2 on 08/13/2024 by Kevin Brody MD at [facility] N/A: Spine Lumbar Evergreen Spine [id number] 5 / / Amina Spine 26mm Semiadjustable Transverse Spine Connector Ulises Posterior [id number] - [id number] Implanted:Qty: 1 on 08/13/2024 by Kevin Brody MD at [facility] N/A: Spine Lumbar Evergreen Spine [id number] 6A / / Amina Spine 32mm Semiadjustable Transverse Spine Connector Ulises Posterior [id number] - [id number] Implanted:Qty: 1 on 08/13/2024 by Kevin Brody MD at [facility] N/A: Spine Lumbar Evergreen Spine [id number] 2A / / Procedures Procedure Name Priority Date/Time Associated Diagnosis Comments IR PICC LINE PLACEMENT > 5 YEARS Schedule Routine, Read Routine (OP Routine) 10/17/2024 9:26 AM [employer]WO[employer] FLOORING SPECIALIST Infection following a procedure, other surgical site, subsequent encounter EGFR Routine 09/28/2024 5:42 AM HARDWOOD FLOORING SPECIALIST RENAL FUNCTION PANEL Routine 09/28/2024 5:42 AM HARDWOOD FLOORING SPECIALIST EGFR Routine 09/27/2024 4:57 AM H[employer]WOOD FLOORING SPECIALIST RENAL FUNCTION PANEL Routine 09/27/2024 4:57 AM HARDWOOD FLOORING SPECIALIST EGFR Routine 09/26/2024 5:36 AM H[employer]WOOD FLOORING SPECIALIST RENAL FUNCTION PANEL Routine 09/26/2024 5:36 AM H[employer]WOOD FLOORING SPECIALIST EGFR Routine 09/25/2024 5:49 AM HARDWOOD FLOORING SPECIALIST RENAL FUNCTION PANEL Routine 09/25/2024 5:49 AM H[employer]WOOD FLOORING SPECIALIST EGFR Routine 09/24/2024 7:50 AM HARDWOOD FLOORING SPECIALIST RENAL FUNCTION PANEL Routine 09/24/2024 7:50 AM HARDWOOD FLOORING SPECIALIST CBC WITHOUT DIFFERENTIAL Routine 09/24/2024 7:50 AM HARDWOOD FLOORING SPECIALIST DRUGS OF ABUSE SCREEN, URINE WITHOUT CONFIRMATION Routine 09/23/2024 6:26 PM HARDWOOD FLOORING SPECIALIST EGFR Routine 09/23/2024 6:17 AM HARDWOOD FLOORING SPECIALIST RENAL FUNCTION PANEL Routine 09/23/2024 6:17 AM HARDWOOD FLOORING SPECIALIST CBC WITHOUT DIFFERENTIAL Routine 09/23/2024 6:17 AM HARDWOOD FLOORING SPECIALIST XR CHEST 1 VIEW ED Urgent/IP Urgent 09/22/2024 12:05 PM HARDWOOD FLOORING SPECIALIST DC INSJ NON-TUNNELED CENTRAL VENOUS CATH AGE 5 YR/> Routine 09/22/2024 11:15 AM HARDWOOD FLOORING SPECIALIST Wound infection EGFR Routine 09/22/2024 8:12 AM HARDWOOD FLOORING SPECIALIST RENAL FUNCTION PANEL Routine 09/22/2024 8:12 AM HARDWOOD FLOORING SPECIALIST CBC WITHOUT DIFFERENTIAL Routine 09/22/2024 8:12 AM HARDWOOD FLOORING SPECIALIST EGFR Routine 09/21/2024 6:09 AM HARDWOOD FLOORING SPECIALIST RENAL FUNCTION PANEL Routine 09/21/2024 6:09 AM HARDWOOD FLOORING SPECIALIST CBC WITHOUT DIFFERENTIAL Routine 09/21/2024 6:09 AM HARDWOOD FLOORING SPECIALIST VANCOMYCIN LEVEL TROUGH Timed 09/20/2024 5:36 PM HARDWOOD FLOORING SPECIALIST CBC WITHOUT DIFFERENTIAL Routine 09/20/2024 5:58 AM HARDWOOD FLOORING SPECIALIST MYCOLOGY (FUNGAL) CULTURE Routine 09/19/2024 11:08 AM HARDWOOD FLOORING SPECIALIST TISSUE AEROBIC AND ANAEROBIC CULTURE AND GRAM STAIN Routine 09/19/2024 11:08 AM HARDWOOD FLOORING SPECIALIST MYCOLOGY (FUNGAL) CULTURE Routine 09/19/2024 11:07 AM HARDWOOD FLOORING SPECIALIST AEROBIC AND ANAEROBIC CULTURE AND GRAM STAIN Routine 09/19/2024 11:07 AM HARDWOOD FLOORING SPECIALIST MYCOLOGY (FUNGAL) CULTURE Routine 09/19/2024 11:07 AM HARDWOOD FLOORING SPECIALIST AEROBIC AND ANAEROBIC CULTURE AND GRAM STAIN Routine 09/19/2024 11:07 AM HARDWOOD FLOORING SPECIALIST DC AN PROCEDURE PLACEHOLDER Routine 09/19/2024 10:49 AM HARDWOOD FLOORING SPECIALIST DC AN ELECTIVE ENDOTRACHEAL AIRWAY Routine 09/19/2024 10:49 AM HARDWOOD FLOORING SPECIALIST INCISION AND DRAINAGE - BACK 09/19/2024 10:30 AM HARDWOOD FLOORING SPECIALIST LUMBAR WOUND INFECTION DIFFERENTIAL AUTO Routine 09/19/2024 1:1 9 AM HARDWOOD FLOORING SPECIALIST CBC WITH AUTO DIFFERENTIAL Routine 09/19/2024 1:19 AM HARDWOOD FLOORING SPECIALIST EGFR Routine 09/19/2024 12:55 AM HARDWOOD FLOORING SPECIALIST COMPREHENSIVE METABOLIC PANEL Routine 09/19/2024 12:55 AM HARDWOOD FLOORING SPECIALIST BLOOD CULTURE Routine 09/19/2024 12:55 AM HARDWOOD FLOORING SPECIALIST BLOOD CULTURE Routine 09/19/2024 12:55 AM HARDWOOD FLOORING SPECIALIST from Last 3 Months Results * IR PICC Line Placement Over 5 Years of Age (10/17/2024 9:26 AM HARDWOOD FLOORING SPECIALIST) Anatomical Region Laterality Modality Body N/A X-Ray Angiograph y 10/17/2024 10:2 5 AM HARDWOOD FLOORING SPECIALIST Impressions 10/17/2024 10:25 AM HARDWOOD FLOORING SPECIALIST Successful nontunneled catheter placement. PLAN: The catheter is ready for immediate use. When treatment is completed, this catheter can be removed at the bedside according to standard hospital protocol. Electronically signed by: Patrica Garnica PA-C Narrative 10/17/2024 10:25 AM HARDWOOD FLOORING SPECIALIST EXAMINATION: NONTUNNELED CENTRAL VENOUS CATHETER PLACEMENT (STD) [...] was obtained. Prior to beginning the procedure, [place] Protocol was used to confirm the patient's [...] was obtained. Prior to beginning the procedure, [place] Protocol was used to confirm the patient's [...] al Result * eGFR (09/28/2024 5:42 AM HARDWOOD FLOORING SPECIALIST) eGFR >90 >=60 mL/min/1. 73 m2 [...] last reviewed 2021. Blood 09/28/2024 5:42 AM HARDWOOD FLOORING SPECIALIST 09/28/2024 5:54 AM HARDWOOD FLOORING SPECIALIST Mitchell Grajeda MD LAB BLOOD ORDERABLES Final R esult Performing Organization Address City/[facility]/ZIP Co de Phone Number [facility] [address] [place] [address] * (ABNORMAL) Renal function panel (09/28/2024 5:42 AM HARDWOOD FLOORING SPECIALIST) Sodium 139 135 - 145 mmol/L Potassium, pl 4.1 3.3 - 4.9 mmol/L [facility] Chloride 99 97 - 110 mmol/L [facility] CO2 27 22 - 32 mmol/L [facility] Anion gap 13 2 - 15 mmol/L [facility] BUN 15 6 - 25 mg/dL [facility] Creatinine 0.78(L) 0.80 - 1.30 mg/dL [facility] Glucose 108 70 - 199 mg/dL [facility] Comment: Interpretive Data Fasting glucose >/= [...] 2022. Calcium 9.1 8.5 - 10.3 mg/dL [facility] Phosphorus, pl 4.2 2.3 - 4.5 mg/dL [facility] Albumin 4.0 3.5 - 5.0 g/dL [facility] Blood 09/28/2024 5:42 AM HARDWOOD FLOORING SPECIALIST 09/28/2024 5:54 AM H[employer]WOOD FLOORING SPECIALIST Mitchell Grajeda MD LAB BLOOD ORDERABLES Final R esult Performing Organization Address City/[facility]/ZIP Co de Phone Number [facility] [address] Department [place] [address] * eGFR (09/27/2024 4:57 AM HARDWOOD FLOORING SPECIALIST) [facility] eGFR >90 >=60 mL/min/1. 73 m2 Comment: [...] last reviewed 2021. Blood 09/27/2024 4:57 AM HARDWOOD FLOORING SPECIALIST 09/27/2024 5:20 AM HARDWOOD FLOORING SPECIALIST us Mitchell Grajeda MD LAB BLOOD ORDERABLES Final R esult [facility] [address] Department [place] [address] * (ABNORMAL) Renal function panel (09/27/2024 4:57 AM HARDWOOD FLOORING SPECIALIST) [facility] Sodium 143 135 - 145 mmol/L Potassium, pl 4.1 3.3 - 4.9 mmol/L [facility] Chloride 103 97 - 110 mmol/L [facility] CO2 28 22 - 32 mmol/L [facility] Anion gap 12 2 - 15 mmol/L [facility] BUN 15 6 - 25 mg/dL [facility] Creatinine 0.77(L) 0.80 - 1.30 mg/dL [facility] Glucose 91 70 - 199 mg/dL [facility] Comment: Interpretive Data Fasting glucose >/= [...] 2022. Calcium 9.4 8.5 - 10.3 mg/dL [facility] Phosphorus, pl 4.4 2.3 - 4.5 mg/dL [facility] Albumin 3.9 3.5 - 5.0 g/dL [facility] Blood 09/27/2024 4:57 AM H[employer]WOOD FLOORING SPECIALIST 09/27/2024 5:20 AM HARDWOOD FLOORING SPECIALIST us Mitchell Grajeda MD LAB BLOOD ORDERABLES Final R esult [facility] [address] Department [place] [address] * eGFR (09/26/2024 5:36 AM HARDWOOD FLOORING SPECIALIST) eGFR >90 >=60 mL/min/1. 73 m2 [...] last reviewed 2021. Blood 09/26/2024 5:36 AM [employer]WOOD FLOORING SPECIALIST 09/26/2024 6:05 AM [employer]WO[employer] FLOORING SPECIALIST Mitchell Grajeda MD LAB BLOOD ORDERABLES Final R esult Performing Organization Address [facility]/ZIP Co de Phone Number [facility] [address] Department [place] [address] * (ABNORMAL) Renal function panel (09/26/2024 5:36 AM HARDWOOD FLOORING SPECIALIST) Pathologist [facility] Sodium 139 135 - 145 mmol/L Potassium, pl 4.0 3.3 - 4.9 mmol/L [facility] Chloride 99 97 - 110 mmol/L [facility] CO2 28 22 - 32 mmol/L [facility] Anion gap 12 2 - 15 mmol/L [facility] BUN 14 6 - 25 mg/dL [facility] Creatinine 0.73(L) 0.80 - 1.30 mg/dL [facility] Glucose 95 70 - 199 mg/dL [facility] Comment: Interpretive Data Fasting glucose >/= [...] 2022. Calcium 9.1 8.5 - 10.3 mg/dL [facility] Phosphorus, pl 4.3 2.3 - 4.5 mg/dL [facility] Albumin 4.0 3.5 - 5.0 g/dL [facility] Blood 09/26/2024 5:36 AM H[employer]WOOD FLOORING SPECIALIST 09/26/2024 6:05 AM [employer]WO[employer] FLOORING SPECIALIST Mitchell Grajeda MD LAB BLOOD ORDERABLES Final R esult Performing Organization Address City/[facility]/ZIP Co de Phone Number [facility] [address] Department [place] [address] * eGFR (09/25/2024 5:49 AM HARDWOOD FLOORING SPECIALIST) Pathologist [facility] eGFR >90 >=60 mL/min/1. 73 m2 Comment: [...] last reviewed 2021. Blood 09/25/2024 5:49 AM H[employer]WOOD FLOORING SPECIALIST 09/25/2024 6:01 AM H[employer]WOOD FLOORING SPECIALIST us Mitchell Grajeda MD LAB BLOOD ORDERABLES Final R esult [facility] [address] [place] [address] * (ABNORMAL) Renal function panel (09/25/2024 5:49 AM HARDWOOD FLOORING SPECIALIST) [facility] Sodium 142 135 - 145 mmol/L Potassium, pl 3.9 3.3 - 4.9 mmol/L [facility] Chloride 103 97 - 110 mmol/L [facility] CO2 29 22 - 32 mmol/L [facility] Anion gap 10 2 - 15 mmol/L [facility] BUN 10 6 - 25 mg/dL [facility] Creatinine 0.70(L) 0.80 - 1.30 mg/dL [facility] Glucose 88 70 - 199 mg/dL [facility] Comment: Interpretive Data Fasting glucose >/= [...] 2022. Calcium 8.8 8.5 - 10.3 mg/dL [facility] Phosphorus, pl 4.1 2.3 - 4.5 mg/dL [facility] Albumin 3.7 3.5 - 5.0 g/dL [facility] Blood 09/25/2024 5:49 AM [employer]WO[employer] FLOORING SPECIALIST 09/25/2024 6:01 AM H[employer]WO[employer] FLOORING SPECIALIST us Mitchell Grajeda MD LAB BLOOD ORDERABLES Final R esult [facility] [address] Department [place] [address] * eGFR (09/24/2024 7:50 AM HARDWOOD FLOORING SPECIALIST) eGFR >90 >=60 mL/min/1. 73 m2 [...] last reviewed 2021. Blood 09/24/2024 7:50 AM H[employer]WOOD FLOORING SPECIALIST 09/24/2024 8:09 AM H[employer]WO[employer] FLOORING SPECIALIST us Mitchell Grajeda MD LAB BLOOD ORDERABLES Final R esult Performing Organization Address [facility]/ZIP Co de Phone Number [facility] [address] [employer] [place], [place] [id number] * (ABNORMAL) CBC without differential (09/24/2024 7:50 AM HARDWOOD FLOORING SPECIALIST) Pathologist [facility] WBC 11.4(H) 3.8 - 9.9 K/cumm Hgb 13.0 13.0 - 17.5 g/dL [facility] Hct 40.2 38.9 - 50.3 % [facility] Plt 280 150 - 400 K/cumm [facility] MPV 10.8 9.1 - 12.3 fL [facility] RBC 4.40 4.30 - 5.80 M/cumm [facility] MCV 91.4 81.3 - 96.4 fL [facility] MCH 29.5 27.1 - 33.3 pg [facility] MCHC 32.3 32.3 - 35.7 g/dL [facility] RDW CV 13.0 11.1 - 14.9 % [facility] RDW SD 43.6 35.7 - 48.1 fL [facility] NRBC abs 0.00 0.00 - 0.01 K/cumm [facility] Blood 09/24/2024 7:50 AM [employer]WO[employer] FLOORING SPECIALIST 09/24/2024 8:10 AM [employer]WO[employer] FLOORING SPECIALIST us Kevin Brody MD LAB BLOOD ORDERABLES Suzie l Result Performing Organization Address City/[facility]/ZIP Co de Phone Number [facility] [address] Department [employer] [place], [place] [id number] * (ABNORMAL) Renal function panel (09/24/2024 7:50 AM HARDWOOD FLOORING SPECIALIST) Pathologist [facility] Sodium 141 135 - 145 mmol/L Potassium, pl 4.0 3.3 - 4.9 mmol/L [facility] Chloride 101 97 - 110 mmol/L [facility] CO2 28 22 - 32 mmol/L [facility] Anion gap 12 2 - 15 mmol/L [facility] BUN 13 6 - 25 mg/dL [facility] Creatinine 0.75(L) 0.80 - 1.30 mg/dL [facility] Glucose 154 70 - 199 mg/dL [facility] Comment: Interpretive Data Fasting glucose >/= [...] 2022. Calcium 9.0 8.5 - 10.3 mg/dL [facility] Phosphorus, pl 3.7 2.3 - 4.5 mg/dL [facility] Albumin 3.9 3.5 - 5.0 g/dL [facility] Blood 09/24/2024 7:50 AM [employer] FLOORING SPECIALIST 09/24/2024 8:09 AM [employer]WO[employer] FLOORING SPECIALIST Mitchell Grajeda MD LAB BLOOD ORDERABLES Final R esult [facility] [address] Department [place] [address] * (ABNORMAL) Drugs of Abuse Screen, Urine without Confirmation (09/23/2024 6:26 PM HARDWOOD FLOORING SPECIALIST) [facility] Amphetamine, ur Not Detected CutOff 500ng/mL Comment: Interpretive Data - Amphetamines: Samples containing greater than 500 ng/mL d-methamphetamine or other cross-reacting amphetamine compounds are reported as positive. Amphetamine immunoassays are subject to significant false positive rates due to cross-reactivity of non-amphetamine drugs. Confirmatory testing required for definitive results. Current Interpretive Data was last reviewed 2023. Barbiturates, ur Not Detected CutOff 200ng/mL [facility] Comment: Interpretive Data - Barbiturates: Samples containing greater than 200 ng/mL secobarbital or other cross-reacting barbiturate compounds are reported as positive. False positive and false negative results are possible. Confirmatory testing required for definitive results. Current Interpretive Data was last reviewed 2023. Benzodiazepines, ur Screen Positive, presumptive (A) CutOff 100ng/mL [facility] Comment: Interpretive Data - Benzodiazepines: Samples containing greater than 100 ng/mL nordiazepam or other cross-reacting compounds are reported as positive. False positive and false negative results are possible. Confirmatory testing required for definitive results. Current Interpretive Data was last reviewed 2023. Cannabinoids, ur Not Detected CutOff 50 ng/mL [facility] Comment: Interpretive Data - Cannabinoids: Samples containing greater than 50 ng/mL delta-9 THC -COOH or other cross- reacting compounds are reported as positive. False positive and false negative results are possible. Confirmatory testing required for definitive results. Current Interpretive Data was last reviewed 2023. Cocaine, ur Not Detected CutOff 150ng/mL [facility] Comment: Interpretive Data - Cocaine: Samples containing greater than 150 ng/mL benzoylecgonine or other cross- reacting compounds are reported as positive. False positive and false negative results are possible. Confirmatory testing required for definitive results. Current Interpretive Data was last reviewed 2023. Fentanyl, Ur Not Detected CutOff 5 ng/mL [facility] Comment: Interpretive Data - Fentanyl: Samples containing greater than 5 ng/mL norfentanyl, fentanyl, or other cross-reacting fentanyl compounds are reported as positive. False positive and false negative results are possible. Confirmatory testing required for definitive results. Current Interpretive Data was last reviewed 2023. Methadone, ur Not Detected CutOff 300ng/mL [facility] Comment: Interpretive Data - Methadone: Samples containing greater than 300 ng/mL d,l-methadone or other cross-reacting compounds are reported as positive. False positive and false negative results are possible. Confirmatory testing required for definitive results. Current Interpretive Data was last reviewed 2023. Opiates, ur Not Detected CutOff 300ng/mL [facility] Comment: Interpretive Data - Opiates: Samples containing greater than 300 ng/mL morphine or other cross-reacting compounds are reported as positive. False positive and false negative results are possible. Confirmatory testing required for definitive results. Current Interpretive Data was last reviewed 2023. Oxycodone, ur Screen Positive, presumptive (A) CutOff 100ng/mL [facility] Comment: Interpretive Data - Oxycodone: Samples containing greater than 100 ng/mL oxycodone or other cross-reacting compounds are reported as positive. False positive and false negative results are possible. Confirmatory testing required for definitive results. Current Interpretive Data was last reviewed 2023. Phencyclidine, ur Not Detected CutOff 25 ng/mL [facility] Comment: Interpretive Data - Phencyclidine: Samples containing greater than 25 ng/mL phencyclidine or other cross-reacting compounds are reported as positive. False positive and false negative results are possible. Confirmatory testing required for definitive results. Current Interpretive Data was last reviewed 2023. Urine Creatinine 87 mg/dL [facility] Comment: Interpretive Data Urine Creatinine: < 10 mg/dL is extremely dilute = or > 10 but < 20 mg/dL is dilute = or > 20 mg/dL is normal Current Interpretive Data was last revised on 2017. Urine 09/23/2024 6:26 PM [employer] F[employer]ING SPECIALIST 09/23/2024 6:33 PM [employer] FLOORING SPECIALIST Narrative [facility] - 09/23/2024 7:11 PM [employer]WO[employer] FLOORING SPECIALIST Drug of Abuse screening is performed by immunoassay for medical purposes only. This is not to be used for Pain Management purposes. us Jovany Stubbs MD LAB URINE ORDERABLES Final Result [facility] [address] [place] [address] * eGFR (09/23/2024 6:17 AM HARDWOOD FLOORING SPECIALIST) eGFR >90 >=60 mL/min/1. 73 m2 [...] last reviewed 2021. Blood 09/23/2024 6:17 AM [employer] FLOORING SPECIALIST 09/23/2024 6:34 AM [employer]WO[employer] FLOORING SPECIALIST us Mitchell Grajeda MD LAB BLOOD ORDERABLES Final R esult [facility] [address] [place] [address] * (ABNORMAL) CBC without differential (09/23/2024 6:17 AM [employer]WO[employer] FLOORING SPECIALIST) WBC 8.7 3.8 - 9.9 K/cumm Hgb 12.7(L) 13.0 - 17.5 g/dL [facility] Hct 39.6 38.9 - 50.3 % [facility] Plt 244 150 - 400 K/cumm [facility] MPV 10.9 9.1 - 12.3 fL [facility] [facility] RBC 4.30 4.30 - 5.80 M/cumm [facility] MCV 92.1 81.3 - 96.4 fL [facility] MCH 29.5 27.1 - 33.3 pg [facility] MCHC 32.1(L) 32.3 - 35.7 g/dL [facility] RDW CV 13.0 11.1 - 14.9 % [facility] RDW SD 43.8 35.7 - 48.1 fL [facility] NRBC abs 0.00 0.00 - 0.01 K/cumm [facility] Blood 09/23/2024 6:17 AM [employer] 09/23/2024 6:34 AM [employer]IST us Kevin Brody MD LAB BLOOD ORDERABLES Suzie gutierrez Result [facility] [address] [place] [address] * (ABNORMAL) Renal function panel (09/23/2024 6:17 AM [employer] FLOORING SPECIALIST) Sodium 141 135 - 145 mmol/L Potassium, pl 4.1 3.3 - 4.9 mmol/L [facility] Chloride 100 97 - 110 mmol/L [facility] CO2 30 22 - 32 mmol/L [facility] Anion gap 11 2 - 15 mmol/L [facility] BUN 10 6 - 25 mg/dL [facility] Creatinine 0.72(L) 0.80 - 1.30 mg/dL [facility] Glucose 95 70 - 199 mg/dL [facility] Comment: Interpretive Data Fasting glucose >/= [...] 2022. Calcium 8.7 8.5 - 10.3 mg/dL [facility] Phosphorus, pl 3.9 2.3 - 4.5 mg/dL [facility] Albumin 3.5 3.5 - 5.0 g/dL [facility] Blood 09/23/2024 6:17 AM [employer]IST 09/23/2024 6:34 AM [employer] F[employer] SPECIALIST us Mitchell Grajeda MD LAB BLOOD ORDERABLES Final R esult [facility] [address] Department [place] [address] * X-ray chest 1 view (Portable) (09/22/2024 12:05 PM [employer] FLOORING SPECIALIST) Anatomical Region Laterality Modality Body, Chest N/A Computed Radiogr aphy 09/22/2024 12:4 0 PM [employer] F[employer]ING SPECIALIST Impressions 09/22/2024 12:40 PM [employer] SPECIALIST Left upper extremity PICC tip in the mid SVC. Electronically signed by: Akil Cerda D.O. Narrative 09/22/2024 12:40 PM [employer] FLOORING SPECIALIST EXAMINATION: XR CHEST 1 VIEW HISTORY: [...] IMG XR PROCEDURES Fi nal Result * DC INSJ NON-TUNNELED CENTRAL VENOUS CATH AGE 5 YR/> (09/22/2024 11:15 AM [employer]IST) Narrative Sue Steinberg PA - 09/22/2024 11:15 AM [employer] SPECIALIST Sue Steinberg PA 09/22/2024 11:46 AM PICC Line Insertion Date/Time: 09/22/2024 11:15 AM Performed by: Sue Steinberg PA Authorized by: Sue Steinberg PA [place] Protocol: RN Notified of Procedure: yes Informed consent: Risks, benefits, alternatives discussed and patient/motor vehicle field representative/guardian agrees and accepts Patient's stated [...] Final Result * eGFR (09/22/2024 8:12 AM [employer]IST) eGFR >90 >=60 mL/min/1. 73 m2 [...] last reviewed 2021. Blood 09/22/2024 8:12 AM [employer] SPECIALIST 09/22/2024 8:51 AM [employer] SPECIALIST us Mitchell Grajeda MD LAB BLOOD ORDERABLES Final R esult [facility] [address] Department [place] [address] * CBC without differential (09/22/2024 8:12 AM [employer] SPECIALIST) WBC 8.5 3.8 - 9.9 K/cumm Hgb 13.6 13.0 - 17.5 g/dL [facility] Hct 41.9 38.9 - 50.3 % [facility] Plt 241 150 - 400 K/cumm [facility] MPV 11.4 9.1 - 12.3 fL [facility] RBC 4.59 4.30 - 5.80 M/cumm [facility] MCV 91.3 81.3 - 96.4 fL [facility] MCH 29.6 27.1 - 33.3 pg [facility] MCHC 32.5 32.3 - 35.7 g/dL [facility] RDW CV 13.0 11.1 - 14.9 % [facility] RDW SD 43.8 35.7 - 48.1 fL [facility] NRBC abs 0.00 0.00 - 0.01 K/cumm [facility] Blood 09/22/2024 8:12 AM [employer] SPECIALIST 09/22/2024 8:52 AM [employer] SPECIALIST us Kevin Brody MD LAB BLOOD ORDERABLES Suzie l Result [facility] [address] [place] [address] * (ABNORMAL) Renal function panel (09/22/2024 8:12 AM [employer]IST) Sodium 143 135 - 145 mmol/L Potassium, pl 3.7 3.3 - 4.9 mmol/L [facility] Chloride 100 97 - 110 mmol/L [facility] CO2 31 22 - 32 mmol/L [facility] Anion gap 12 2 - 15 mmol/L [facility] BUN 9 6 - 25 mg/dL [facility] Creatinine 0.77(L) 0.80 - 1.30 mg/dL [facility] Glucose 144 70 - 199 mg/dL [facility] Comment: Interpretive Data Fasting glucose >/= [...] 2022. Calcium 9.3 8.5 - 10.3 mg/dL [facility] Phosphorus, pl 4.6(H) 2.3 - 4.5 mg/dL [facility] Albumin 4.1 3.5 - 5.0 g/dL [facility] Blood 09/22/2024 8:12 AM [employer] SPECIALIST 09/22/2024 8:51 AM [employer] SPECIALIST us Mitchell Grajeda MD LAB BLOOD ORDERABLES Final R esult Performing Organization Address City/[facility]/ZIP Co de Phone Number [facility] [address] [place] [address] * eGFR (09/21/2024 6:09 AM [employer] SPECIALIST) [facility] eGFR >90 >=60 mL/min/1. 73 m2 Comment: [...] last reviewed 2021. Blood 09/21/2024 6:09 AM [employer] SPECIALIST 09/21/2024 7:01 AM [employer]IST us Mitchell Grajeda MD LAB BLOOD ORDERABLES Final R esult [facility] [address] [place] [address] * (ABNORMAL) CBC without differential (09/21/2024 6:09 AM [employer] F[employer]OR[employer] SPECIALIST) [facility] WBC 8.8 3.8 - 9.9 K/cumm Hgb 11.7(L) 13.0 - 17.5 g/dL [facility] Hct 36.0(L) 38.9 - 50.3 % [facility] Plt 162 150 - 400 K/cumm [facility] MPV 12.0 9.1 - 12.3 fL [facility] RBC 3.93(L) 4.30 - 5.80 M/cumm [facility] MCV 91.6 81.3 - 96.4 fL [facility] MCH 29.8 27.1 - 33.3 pg [facility] MCHC 32.5 32.3 - 35.7 g/dL [facility] RDW CV 13.0 11.1 - 14.9 % [facility] RDW SD 44.1 35.7 - 48.1 fL [facility] NRBC abs 0.00 0.00 - 0.01 K/cumm [facility] Blood 09/21/2024 6:09 AM [employer] F[employer] SPECIALIST 09/21/2024 7:01 AM [employer] SPECIALIST us Kevin Brody MD LAB BLOOD ORDERABLES Suzie l Result [facility] [address] Department [place] [address] * (ABNORMAL) Renal function panel (09/21/2024 6:09 AM [employer] F[employer]OR[employer] SPECIALIST) Sodium 143 135 - 145 mmol/L Potassium, pl 3.5 3.3 - 4.9 mmol/L [facility] Chloride 105 97 - 110 mmol/L [facility] CO2 26 22 - 32 mmol/L [facility] Anion gap 12 2 - 15 mmol/L [facility] BUN 10 6 - 25 mg/dL [facility] Creatinine 0.70(L) 0.80 - 1.30 mg/dL [facility] Glucose 102 70 - 199 mg/dL [facility] Comment: Interpretive Data Fasting glucose >/= [...] 2022. Calcium 8.6 8.5 - 10.3 mg/dL [facility] Phosphorus, pl 3.6 2.3 - 4.5 mg/dL [facility] Albumin 3.3(L) 3.5 - 5.0 g/dL [facility] Blood 09/21/2024 6:09 AM [employer] SPECIALIST 09/21/2024 7:01 AM [employer] SPECIALIST Mitchell Grajeda MD LAB BLOOD ORDERABLES Final R esult Performing Organization Address City/[facility]/ZIP Co de Phone Number [facility] [address] [facility] [place] [address] * (ABNORMAL) Vancomycin level trough Please draw trough at this specific time. (09/20/2024 5:36 PM [employer] SPECIALIST) Pathologist [facility] Vancomycin trough 7.4(L) 10.0 - 20.0 mcg/mL Blood 09/20/2024 5:36 PM [employer] F[employer] SPECIALIST 09/20/2024 5:40 PM [employer] F[employer] SPECIALIST Narrative [facility] - 09/20/2024 6:00 PM [employer] F[employer] SPECIALIST Please draw trough at this specific time. us Mitchell Grajeda MD LAB BLOOD ORDERABLES Final R esult [facility] [address] [facility] [address] * (ABNORMAL) CBC without differential (09/20/2024 5:58 AM [employer] F[employer] SPECIALIST) WBC 17.4(H) 3.8 - 9.9 K/cumm Hgb 12.8(L) 13.0 - 17.5 g/dL [facility] Hct 40.4 38.9 - 50.3 % [facility] Plt 174 150 - 400 K/cumm [facility] MPV 12.4(H) 9.1 - 12.3 fL [facility] RBC 4.37 4.30 - 5.80 M/cumm [facility] MCV 92.4 81.3 - 96.4 fL [facility] MCH 29.3 27.1 - 33.3 pg [facility] MCHC 31.7(L) 32.3 - 35.7 g/dL [facility] RDW CV 12.9 11.1 - 14.9 % [facility] RDW SD 44.1 35.7 - 48.1 fL [facility] NRBC abs 0.00 0.00 - 0.01 K/cumm [facility] Blood 09/20/2024 5:58 AM [employer] SPECIALIST 09/20/2024 6:35 AM [employer] F[employer] SPECIALIST Kevin Brody MD LAB BLOOD ORDERABLES Suzie l Result [facility] [address] Department [place] [address] * (ABNORMAL) Tissue aerobic and anaerobic culture and gram stain Tissue Back, lower (09/19/2024 11:08AM [employer] SPECIALIST) Direct Specimen Exam Stain: No polymorphonuclear leukocytes seen. No organisms seen. Report Final Report: Very light growth Staphylococcus aureus, methicillin susceptible (.) [facility] Organism STAPHYLOCOCCUS AUREUS, METHICILLIN SUSCEPTIBLE [facility] Tissue (Back, lower) 09/19/2024 11:08 AM [employer] F[employer]ORING SPECIALIST 09/19/2024 12:11 PM [employer] F[employer]ORING SPECIALIST Narrative [facility] - 09/22/2024 9:51 AM H[employer]WO[employer] FLOORING SPECIALIST Deep Tissue Organism Antibiotic Method Susceptibility [...] Performing Organization Address City/[facility]/ZIP Co de Phone Number [facility] [address] Department of [employer] [facility] [place], [place] [address] * Mycology (fungal) culture Tissue Back, lower (09/19/2024 11:08 AM [employer] F[employer]ING SPECIALIST) Report Final Report: No fungus isolated Tissue (Back, lower) 09/19/2024 11:08 AM [employer] F[employer]OR[employer] SPECIALIST 09/19/2024 12:11 PM [employer] F[employer]ING SPECIALIST Narrative [facility] - 10/17/2024 1:00 PM [employer] F[employer] SPECIALIST Deep Tissue Mycology cultures are held for 4 weeks. us Kevin Brody MD LAB MICROBIOLOGY - GENERA L ORDERABLES Final Result Performing Organization Address City/[facility]/ZIP Co de Phone Number [facility] [address] [facility] [place] [address] * Mycology (fungal) culture Abscess Back, lower (09/19/2024 11:07 AM [employer] F[employer]OR[employer] SPECIALIST) Report Final Report: No fungus isolated Abscess (Back, lower) 09/19/2024 11:07 AM [employer] F[employer]ORING SPECIALIST 09/19/2024 12:25 PM [employer] F[employer]ORING SPECIALIST [facility] 10/17/[facility]24 1:00 PM [employer] FLOORING SPECIALIST Deep Mycology cultures are held for 4 weeks. us Kevin Brody MD LAB MICROBIOLOGY - GENERA L ORDERABLES Final Result Performing Organization Address [facility] Co de Phone Number [facility] [address] [facility] [place] [address] * Mycology (fungal) culture Abscess Back, lower (09/19/2024 11:07 AM [employer] F[employer]OR[employer] SPECIALIST) Report Final Report: No fungus isolated Abscess (Back, lower) 09/19/2024 11:07 AM [employer] FLOORING SPECIALIST 09/19/2024 12:25 PM [employer] F[employer]ORING SPECIALIST Narrative [facility] - 10/17/2024 1:00 PM [employer] F[employer]ORING SPECIALIST Superficial Mycology cultures are held for 4 weeks. us Kevin Brody MD LAB MICROBIOLOGY - GENERA L ORDERABLES Final Result Performing Organization Address City/[facility]/ZIP Co de Phone Number [facility] [address] [facility] [place] [address] * (ABNORMAL) Aerobic and anaerobic culture and gram stain Abscess Back, lower (09/19/2024 11:07 AM [employer] F[employer]OR[employer] SPECIALIST) Direct Specimen Exam Stain: No polymorphonuclear leukocytes seen. No organisms seen. Report Final Report: Light growth of: Staphylococcus aureus, methicillin susceptible Susceptibility reported on this organism on previous culture [id number] (.) [facility] Organism STAPHYLOCOCCUS AUREUS, METHICILLIN SUSCEPTIBLE [facility] Abscess (Back, lower) 09/19/2024 11:07 AM [employer] F[employer]OR[employer] SPECIALIST 09/19/2024 12:25 PM [employer] FLOORING SPECIALIST Narrative [facility] - 09/23/2024 8:55 AM H[employer] FLOORING SPECIALIST Deep us Kevin Brody MD LAB MICROBIOLOGY - GENERA L ORDERABLES Final Result Performing Organization Address [facility] Co de Phone Number [facility] [address] [place] [address] * (ABNORMAL) Aerobic and anaerobic culture and gram stain Abscess Back, lower (09/19/2024 11:07 AM [employer] FLOORING SPECIALIST) Direct Specimen Exam Stain: Few polymorphonuclear leukocytes seen. Rare Gram Positive Cocci Report Final Report: Moderate growth of: Staphylococcus aureus, methicillin susceptible (.) [facility] Organism STAPHYLOCOCCUS AUREUS, METHICILLIN SUSCEPTIBLE [facility] Abscess (Back, lower) 09/19/2024 11:07 AM [employer] FLOORING SPECIALIST 09/19/2024 12:25 PM [employer]WO[employer] FLOORING SPECIALIST Narrative [facility] - 09/23/2024 8:49 AM H[employer]WOOD FLOORING SPECIALIST Superficial Organism Antibiotic Method Susceptibility Staphylococcus [...] L ORDERABLES Final Result Performing Organization Address City/State/[facility] Co de Phone Number [facility] [address] [place] [address] * DC AN ELECTIVE ENDOTRACHEAL AIRWAY, DC AN PROCEDURE PLACEHOLDER (09/19/2024 10:49 AM [employer] SPECIALIST) Sonia Carrera CRNA - 09/19/2024 10:49 AM [employer] F[employer]OR[employer] SPECIALIST oSnia David CRNA 09/19/2024 10:50 AM Airway Patient location: OR Urgency: elective Indications for airway management: anesthesia Difficult airway: no Staff: Placed by: OFFICE MACHINE INSTALLER: Sonia David CRNA Emergent airway documentation: Risks [...] * (ABNORMAL) Differential, auto (09/19/2024 1:19 AM [employer] F[employer]OR[employer] SPECIALIST) Neutrophil abs 13.1(H) 1.5 - 6.5 K/cumm Imm gran abs 0.1 0.0 - 0.1 K/cumm [facility] Lymphocyte abs 1.3 0.8 - 3.3 K/cumm [facility] Monocyte abs 1.3(H) 0.2 - 0.8 K/cumm [facility] Eosinophil abs 0.0 0.0 - 0.5 K/cumm [facility] Basophil abs 0.0 0.0 - 0.1 K/cumm [facility] Neutrophil pct 83.0 % [facility] Comment: Interpretive Data Percent cell count reference ranges are not reported, since discordance with absolute values may lead to misinterpretation of CBC data. Current Interpretive Data was last revised on 2018. Imm gran pct 0.5 % [facility] Comment: Interpretive Data Percent cell count reference ranges are not reported, since discordance with absolute values may lead to misinterpretation of CBC data. Current Interpretive Data was last revised on 2018. Lymphocyte pct 8.0 % [facility] Comment: Interpretive Data Percent cell count reference ranges are not reported, since discordance with absolute values may lead to misinterpretation of CBC data. Current Interpretive Data was last revised on 2018. Monocyte pct 8.3 % [facility] Comment: Interpretive Data Percent cell count reference ranges are not reported, since discordance with absolute values may lead to misinterpretation of CBC data. Current Interpretive Data was last revised on 2018. Eosinophil pct 0.1 % [facility] Comment: Interpretive Data Percent cell count reference ranges are not reported, since discordance with absolute values may lead to misinterpretation of CBC data. Current Interpretive Data was last revised on 2018. Basophil pct 0.1 % [facility] Comment: Interpretive Data Percent cell count reference ranges are not reported, since discordance with absolute values may lead to misinterpretation of CBC data. Current Interpretive Data was last revised on 2018. Blood 09/19/2024 1:19 AM [employer] F[employer]ORING SPECIALIST 09/19/2024 1:19 AM [employer] F[employer]OR[employer] SPECIALIST us Kita Astudillo MD LAB BLOOD ORDERABLES Final Resu lt [facility] [address] [place] [address] * (ABNORMAL) CBC with auto differential (09/19/2024 1:19 AM HARDWO[employer] FLOORING SPECIALIST) WBC 15.8(H) 3.8 - 9.9 K/cumm Hgb 13.0 13.0 - 17.5 g/dL [facility] Hct 39.4 38.9 - 50.3 % [facility] Plt 150 150 - 400 K/cumm [facility] MPV 12.1 9.1 - 12.3 fL [facility] RBC 4.38 4.30 - 5.80 M/cumm [facility] MCV 90.0 81.3 - 96.4 fL [facility] MCH 29.7 27.1 - 33.3 pg [facility] MCHC 33.0 32.3 - 35.7 g/dL [facility] RDW CV 12.7 11.1 - 14.9 % [facility] RDW SD 42.4 35.7 - 48.1 fL [facility] NRBC abs 0.00 0.00 - 0.01 K/cumm [facility] Blood 09/19/2024 1:19 AM [employer] F[employer]ORING SPECIALIST 09/19/2024 1:19 AM [employer] F[employer]OR[employer] SPECIALIST us Kita Astudillo MD LAB BLOOD ORDERABLES Final Resu lt [facility] [address] [place] [address] * eGFR (09/19/2024 12:55 AM [employer] F[employer]ORING SPECIALIST) eGFR >90 >=60 mL/min/1. 73 m2 [...] reviewed 2021. Blood 09/19/2024 12:5 5 AM [employer] F[employer]ORING SPECIALIST 09/19/2024 1:19 AM [employer] F[employer]ORING SPECIALIST Kita Astudillo MD LAB BLOOD ORDERABLES Final Resu lt Performing Organization Address [facility]/ZIP Co de Phone Number [facility] [address] Department [place] [address] * Blood culture Blood (09/19/2024 12:55 AM H[employer]WO[employer] FLOORING SPECIALIST) Report Final Report: No growth Blood 09/19/2024 12:5 5 AM [employer] F[employer]ORING SPECIALIST 09/19/2024 2:14 AM [employer]WO[employer] FLOORING SPECIALIST Narrative [facility] - 09/24/2024 7:01 AM H[employer]WO[employer] FLOORING SPECIALIST From a different site than #1. [...] organism identification may be performed using the [employer] Blood Culture Identification panel. This assay detects microbial DNA in a blood culture broth. This assay has been cleared by the [place] Food and Drug Administration and its performance characteristics have been verified by the [facility]. Interpretive data was last revised on October 27, 2022. Kita Astudillo MD LAB MICROBIOLOGY - GENERAL ORDE RABLES Final Result Performing Organization Address [facility]/ZIP Co de Phone Number [facility] [address] Department [place] [address] * Blood culture Blood (09/19/2024 12:55 AM H[employer]WO[employer] FLOORING SPECIALIST) Report Final Report: No growth Blood 09/19/2024 12:5 5 AM [employer] F[employer]ORING SPECIALIST 09/19/2024 2:14 AM [employer] FLOORING SPECIALIST Narrative [facility] - 09/24/2024 7:01 AM [employer] F[employer]ORING SPECIALIST Collection->Peripheral Interpretive Data 1. Blood cultures are incubated and monitored continuously for 5 days (120 hours). The first negative report is issued within 24 hours of receipt in the laboratory. 2. All positive cultures are resulted and called to physicians/care providers as soon as they are detected. 3. A rapid molecular test for organism identification may be performed using the [employer] Blood Culture Identification panel. This assay detects microbial DNA in a blood culture broth. This assay has been cleared by the [place] Food and Drug Administration and its performance characteristics have been verified by the [facility]. Interpretive data was last revised on October 27, 2022. Kita Astudillo MD LAB MICROBIOLOGY - GENERAL MELVIN NEGRON Final Result [facility] [address] [place] [address] * (ABNORMAL) Comprehensive metabolic panel (09/19/2024 12:55 AM HARDWOOD FLOORING SPECIALIST) Sodium 136 135 - 145 mmol/L Potassium, pl 4.1 3.3 - 4.9 mmol/L [facility] Comment:Hemolyzed; potassium value may be falsely elevated by as much as 0.3 - 0.5 mmol/L. Suggest redraw and reanalysis Chloride 98 97 - 110 mmol/L [facility] CO2 26 22 - 32 mmol/L [facility] Anion gap 12 2 - 15 mmol/L [facility] BUN 8 6 - 25 mg/dL [facility] Creatinine 0.70(L) 0.80 - 1.30 mg/dL [facility] Glucose 139 70 - 199 mg/dL [facility] Comment: Interpretive Data Fasting glucose >/= [...] 2022. Calcium 9.1 8.5 - 10.3 mg/dL [facility] Bilirubin, total 0.9 0.1 - 1.2 mg/dL [facility] Protein, pl 6.7 6.5 - 8.5 g/dL [facility] Albumin 3.7 3.5 - 5.0 g/dL [facility] Alk phos 92 40 - 130 Units/L [facility] ALT 18 7 - 55 Units/L [facility] AST 22 10 - 50 Units/L [facility] Comment:Slightly Hemolyzed S pecimen Blood 09/19/2024 12:5 5 AM [employer] F[employer]OR[employer] SPECIALIST 09/19/2024 1:19 AM [employer] F[employer]OR[employer] SPECIALIST us Kita Astudillo MD LAB BLOOD ORDERABLES Final Resu lt [facility] [address] [place] [address] from Last 3 Months Insurance [facility] Advance Directives For more information, please contact: [phone] * Full Code (Latest Code Status on File) Date Activated Date Inactivated Comments 09/19/2024 12:47 PM 10/05/2024 3:11 PM * Full Code Date Activated Date Inactivated Comments 09/18/2024 8:09 PM 09/19/2024 12:47 PM * Full Code Date Activated Date Inactivated Comments 08/13/2024 2:58 PM 08/14/2024 4:58 PM Care Teams Warehouse Record Clerk Relationship Specialty Start Date End Date Elton De La Fuente MD PCP - General Family Medicine 06/02/21
== END 2024-11-18 09:31 | disposition home or self-care (01) ==
LOC: CHSLAB 09:33
PROVIDERS: PCP Family Medicine; Visit Provider Neurological Surgery
DX: Z98.1 Arthrodesis status (principal); M43.06 Spondylolysis, lumbar region
CPT/HCPCS: 72100

== ENCOUNTER 2024-12-31 17:25 | Outpatient (CLI) | payer BC, SELFPAY ==
--- NOTE | ~2024-12-31 | XR_ITS ---
Lumbosacral Spine: AP and lateral views Clinical History: Postoperative COMPARISON: 11/18/2024 Findings: Stable postoperative fusion changes from L3 through L5, with posterior rods and transpedicu lar screws present. This fusion cage present at L3-L4 disc space. There is severe degenerative disc n arrowing at L4-L5. There is minimal grade 1 retrolisthesis of L2 over L3. There is moderate degenerat wesley distended L1-L2 and L2-L3. No acute fracture. The sacroiliac joints are normally outlined. Impression: Stable postoperative change from L3 through L5, as above. Stable additional degenerative changes, as above. Reviewed, dictated and finalized at location M. Impression: Stable postoperative change from L3 through L5, as above. Stable additional degenerative changes, as above.
--- OUTSIDE RECORDS SUMMARY | 2024-12-31 17:30 | XMS_ITS ---
Author Organization [facility] Address [address] [place] [address] Care Team Providers Care Car Parker Name Role Phone Mary Grace SOMMERS, Kevin Unavailable Unavailable Twan Castillo Unavailable [phone] Allergies Allergen (clinical drug ingredient) Drug/Non Drug Allergy documented on EMR Reaction Allergy Type Onset Date Status Sudafed Other Drug Allergy Active Results Component Value Reference Range Notes [employer] Profil e Reviewed date:12/03/2024 02:55:01 PM Interpretation: Performing Lab:[facility] (CLIA#: [id number]), [address] [place] [address], Director - Inna Pemberton Notes/Report: Analyzed at [facility] (CLIA#: [id number]) - [address] [place] [address] - Production Machinist: Inna Harris Certifying Brooch Maker Novelty: Ann Winter (Remote [id number]) These tests were developed and their performance characteristics determined by [facility] They have not been cleared or approved by the [place] Food and Drug Administration. Tizanidine Ur CMP <5 >=5 ng/mL PRN - NOT PRESENT: Test result is consistent and expected with prescribed drug. Hydrocodone Ur CMP 8177 >=100 ng/mL COMPLIANT : Test result is consistent and expected with prescribed drug. Oxymorphone Ur CMP 154 >=100 ng/mL PRESENT: A prescription drug, not indicated as prescribed on the requisition form, was detected. BioDetect EXPECTED Test result is consistent with routinely analyzed human urine. 6MAM Ur Ql Cfm <10 >=10 ng/mL NONE DETECTED Amphetamines Ur Ql Cfm <100 >=100 ng/mL NONE DETECTED Benzodiaz Ur Ql Cfm <50 >=50 ng/mL NONE DET ECTED Buprenorphine Ur Ql Cfm <1 >=1 ng/mL NONE DETECTED BZE Ur Ql Cfm <50 >=50 ng/mL NONE DETECTED Fentanyl+Norfentanyl Ur Ql Cfm <5 >=5 ng/mL NONE DETECTED Gabapentin Ur Ql <5 >=5 mcg/mL NONE DETECT ED Carisoprodol+Meprob Ur Ql Scn <200 >=200 ng/mL NONE DETECTED Methadone Ur Ql Cfm <200 >=200 ng/mL NONE DET ECTED Meperidine Ur Ql Cfm <100 >=100 ng/mL NONE DE TECTED Opiates Ur Ql Cfm >=100 >=100 ng/mL POSITIVE Oxymorphone Ur Cfm-mCnc 154 >=100 ng/mL POSI TIVE Hydromorphone Ur Cfm-mCnc 1159 >=100 ng/mL PO SITIVE DHC Ur Cfm-mCnc 500 >=100 ng/mL POSITIVE Norhydrocodone Ur Cfm-mCnc 2947 >=100 ng/mL P OSITIVE Hydrocodone Ur Cfm-mCnc 3571 >=100 ng/mL POSI TIVE Pregabalin(Lyrica) Ur Ql Cfm <5 >=5 mcg/mL NONE DETECTED Tramadol Ur Ql Cfm <100 >=100 ng/mL NONE DETE CTED Creat Ur-mCnc 152.2 20 - 370 mg/dL NORMAL Creatinine and pH are performed for specimen validity and not diagnostic purposes. pH Ur 5.51 4.5 - 9.0 NORMAL Creatinine and pH are performed for specimen validity and not diagnostic purposes. Alcohol Metabolites Ur Ql Cfm <200 >=200 ng/mL NONE DETECTED Ethyl sulfate Ur Cfm-mCnc <200 >=200 ng/mL NO NE DETECTED Tizanidine Ur Ql Cfm <25 >=25 ng/mL NONE DE TECTED Synthetic Stimulants Ur Ql Cfm <1 >=1 ng/mL NONE DETECTED DRILL RUNNER Not Otherwise Specified Ur Ql Cfm <1 >=1 ng/mL NONE DETECTED Synthetic Cannabinoids Ur Ql Cfm <1 >=1 ng/m L NONE DETECTED Hallucinogens/Dissociatives Ur Ql Cfm <1 >=1 ng/mL NONE DETECTED Rn Building Benzodiazepines Ur Ql Cfm <1 >=1 ng/mL NONE DETECTED Rn Building Opioids Ur Ql Cfm <1 >=1 ng/mL N ONE DETECTED THC Ur Ql Scn <20 >=20 ng/mL NONE DETECTED REASON FOR VISIT needs neck sx UDS NEEDED Medications Medication SIG (Take, Route, Frequency, Duration) Notes Start Date End Date Status predniSONE 20 MG Oral for 4 Days Active Albuterol Sulfate HFA 108 (90 Base) MCG/ACT Inhalation for 25 Days Active tiZANidine HCl 2 MG Oral for 30 Days Active HYDROcodone-Acetaminop hen 7.5-325 MG 1 tablet Orally every 6 hrs for 10 days Fill 08/05/24 08/05/2024 Active Vital Signs Blood pressure systolic 144 mm Hg 11/28/19 25 Blood pressure diastolic 77 mm Hg 025 Heart Rate 83 /min 11/27/2024 Height 70 in 11/27/2024 Weight 175 lbs 11/27/2024 BMI 25.11 kg/m2 11/27/2024 Height-cm 177.8 cm 11/27/2024 Weight-kg 79.38 kg 11/27/2024 Encounters Encounter Location Date Provider Diagnosis [facility] [address] [place] [address] [place] [phone] 11/27/2024 Twan Castillo Low back pain M54.50 ; Post laminectomy syndrome M96.1 ; Sacroiliitis M46.1 ; Cervicalgia M54.2 ; Cervical spondylosis M47.812 and Cervical radiculopathy M54.12 Assessments Encounter Date Diagnosis (ICD Code) Assessment Notes Treatment Notes Treatment Clinical Notes Section Notes 11/27/2024 Low back pain (ICD-10 - M54.50) Medical record dated 11/20/[address] Brody service has been reviewed: status post left L4-5 microdiskectomy 06/11/2021 , status post C5-6 ACDF/fusion 08/11/2023, status post L3-5 decompression with posterior instrumentation on 08/13/2024, and incision and drainage of lumbar wound on 09/19/2024 C-spine x-ray today C -spine MRI study has been ordered by Dr. Oseguera, we will follow the result L-spine x-ray 11/18/2024: Mild lumbar spondylosis anterior and posterior fusion from L3-L5, no hardware failure, disc space narrowing at L5-S1 level, 3 mm retrolisthesis of L2 on L3, chronic anterior wedge from T11-L1, mild disc space narrowing at L1-2 and L2-3 C-spine x-ray 11/27/24 : C5-6 ACDF, cervical spondylosis with facet arthropathy, loss normal lordosis of cervical spine , no instability on dynamic view, multilevel cervical spondylosis most significant at C4-5. imaging study has been reviewed and updated with the patient , and all the questions have been answered with satisfaction Patient reports oxycodone makes him feel weird and dysfunction, patient would like to back to [place] as we gave to him previously , patient denies illicit drug use, patient wants to resume pregabalin and continue Robaxin. -OPIOID USAGE EVALUATION: Opioid risk: Denies ETOH or Drug abuse history. Analgesia effect: pain meds allowed patient to: standing /walking/ moving around Activity: independent ADL Adverse event: none Aberrant behavior: none reported UDS: Random urine testing based on risk stratification. UDS today BOOM OPERATOR reviewed which is appropriate 11/27/24 Greater and lesser occipital block has been ordered for the occipital headache [place] 7.5 mg q.6 hours as needed, 120 tablets for 30 day supply given no refills Pregabalin 50 mg t.i.d., 90 tablets for 30 day supply given Narcan spray given using as needed for narcotic overdose rescue 11/27/2024 Post laminectomy syndrome (ICD-10 - M96.1) Medical record dated 11/20/[address] Brody service has been reviewed: status post left L4-5 microdiskectomy 06/11/2021 , status post C5-6 ACDF/fusion 08/11/2023, status post L3-5 decompression with posterior instrumentation on 08/13/2024, and incision and drainage of lumbar wound on 09/19/2024 C-spine x-ray today C -spine MRI study has been ordered by Dr. Oseguera, we will follow the result L-spine x-ray 11/18/2024: Mild lumbar spondylosis anterior and posterior fusion from L3-L5, no hardware failure, disc space narrowing at L5-S1 level, 3 mm retrolisthesis of L2 on L3, chronic anterior wedge from T11-L1, mild disc space narrowing at L1-2 and L2-3 C-spine x-ray 11/27/24 : C5-6 ACDF, cervical spondylosis with facet arthropathy, loss normal lordosis of cervical spine , no instability on dynamic view, multilevel cervical spondylosis most significant at C4-5. imaging study has been reviewed and updated with the patient , and all the questions have been answered with satisfaction Patient reports oxycodone makes him feel weird and dysfunction, patient would like to back to [place] as we gave to him previously , patient denies illicit drug use, patient wants to resume pregabalin and continue Robaxin. -OPIOID USAGE EVALUATION: Opioid risk: Denies ETOH or Drug abuse history. Analgesia effect: pain meds allowed patient to: standing /walking/ moving around Activity: independent ADL Adverse event: none Aberrant behavior: none reported UDS: Random urine testing based on risk stratification. UDS today BOOM OPERATOR reviewed which is appropriate 11/27/24 Greater and lesser occipital block has been ordered for the occipital headache [place] 7.5 mg q.6 hours as needed, 120 tablets for 30 day supply given no refills Pregabalin 50 mg t.i.d., 90 tablets for 30 day supply given Narcan spray given using as needed for narcotic overdose rescue 11/27/2024 Sacroiliitis (ICD-10 - M46.1) Medical record dated 11/20/[address] Brody service has been reviewed: status post left L4-5 microdiskectomy 06/11/2021 , status post C5-6 ACDF/fusion 08/11/2023, status post L3-5 decompression with posterior instrumentation on 08/13/2024, and incision and drainage of lumbar wound on 09/19/2024 C-spine x-ray today C -spine MRI study has been ordered by Dr. Oseguera, we will follow the result L-spine x-ray 11/18/2024: Mild lumbar spondylosis anterior and posterior fusion from L3-L5, no hardware failure, disc space narrowing at L5-S1 level, 3 mm retrolisthesis of L2 on L3, chronic anterior wedge from T11-L1, mild disc space narrowing at L1-2 and L2-3 C-spine x-ray 11/27/24 : C5-6 ACDF, cervical spondylosis with facet arthropathy, loss normal lordosis of cervical spine , no instability on dynamic view, multilevel cervical spondylosis most significant at C4-5. imaging study has been reviewed and updated with the patient , and all the questions have been answered with satisfaction Patient reports oxycodone makes him feel weird and dysfunction, patient would like to back to [place] as we gave to him previously , patient denies illicit drug use, patient wants to resume pregabalin and continue Robaxin. -OPIOID USAGE EVALUATION: Opioid risk: Denies ETOH or Drug abuse history. Analgesia effect: pain meds allowed patient to: standing /walking/ moving around Activity: independent ADL Adverse event: none Aberrant behavior: none reported UDS: Random urine testing based on risk stratification. UDS today BOOM OPERATOR reviewed which is appropriate 11/27/24 Greater and lesser occipital block has been ordered for the occipital headache [place] 7.5 mg q.6 hours as needed, 120 tablets for 30 day supply given no refills Pregabalin 50 mg t.i.d., 90 tablets for 30 day supply given Narcan spray given using as needed for narcotic overdose rescue 11/27/2024 Cervicalgia (ICD-10 - M54.2) Medical record dated 11/20/[address] Brody service has been reviewed: status post left L4-5 microdiskectomy 06/11/2021 , status post C5-6 ACDF/fusion 08/11/2023, status post L3-5 decompression with posterior instrumentation on 08/13/2024, and incision and drainage of lumbar wound on 09/19/2024 C-spine x-ray today C -spine MRI study has been ordered by Dr. Oseguera, we will follow the result L-spine x-ray 11/18/2024: Mild lumbar spondylosis anterior and posterior fusion from L3-L5, no hardware failure, disc space narrowing at L5-S1 level, 3 mm retrolisthesis of L2 on L3, chronic anterior wedge from T11-L1, mild disc space narrowing at L1-2 and L2-3 C-spine x-ray 11/27/24 : C5-6 ACDF, cervical spondylosis with facet arthropathy, loss normal lordosis of cervical spine , no instability on dynamic view, multilevel cervical spondylosis most significant at C4-5. imaging study has been reviewed and updated with the patient , and all the questions have been answered with satisfaction Patient reports oxycodone makes him feel weird and dysfunction, patient would like to back to [place] as we gave to him previously , patient denies illicit drug use, patient wants to resume pregabalin and continue Robaxin. -OPIOID USAGE EVALUATION: Opioid risk: Denies ETOH or Drug abuse history. Analgesia effect: pain meds allowed patient to: standing /walking/ moving around Activity: independent ADL Adverse event: none Aberrant behavior: none reported UDS: Random urine testing based on risk stratification. UDS today BOOM OPERATOR reviewed which is appropriate 11/27/24 Greater and lesser occipital block has been ordered for the occipital headache [place] 7.5 mg q.6 hours as needed, 120 tablets for 30 day supply given no refills Pregabalin 50 mg t.i.d., 90 tablets for 30 day supply given Narcan spray given using as needed for narcotic overdose rescue 11/27/2024 Cervical spondylosis (ICD-10 - M47.812) Medical record dated 11/20/[address] Brody service has been reviewed: status post left L4-5 microdiskectomy 06/11/2021 , status post C5-6 ACDF/fusion 08/11/2023, status post L3-5 decompression with posterior instrumentation on 08/13/2024, and incision and drainage of lumbar wound on 09/19/2024 C-spine x-ray today C -spine MRI study has been ordered by Dr. Oseguera, we will follow the result L-spine x-ray 11/18/2024: Mild lumbar spondylosis anterior and posterior fusion from L3-L5, no hardware failure, disc space narrowing at L5-S1 level, 3 mm retrolisthesis of L2 on L3, chronic anterior wedge from T11-L1, mild disc space narrowing at L1-2 and L2-3 C-spine x-ray 11/27/24 : C5-6 ACDF, cervical spondylosis with facet arthropathy, loss normal lordosis of cervical spine , no instability on dynamic view, multilevel cervical spondylosis most significant at C4-5. imaging study has been reviewed and updated with the patient , and all the questions have been answered with satisfaction Patient reports oxycodone makes him feel weird and dysfunction, patient would like to back to [place] as we gave to him previously , patient denies illicit drug use, patient wants to resume pregabalin and continue Robaxin. -OPIOID USAGE EVALUATION: Opioid risk: Denies ETOH or Drug abuse history. Analgesia effect: pain meds allowed patient to: standing /walking/ moving around Activity: independent ADL Adverse event: none Aberrant behavior: none reported UDS: Random urine testing based on risk stratification. UDS today BOOM OPERATOR reviewed which is appropriate 11/27/24 Greater and lesser occipital block has been ordered for the occipital headache [place] 7.5 mg q.6 hours as needed, 120 tablets for 30 day supply given no refills Pregabalin 50 mg t.i.d., 90 tablets for 30 day supply given Narcan spray given using as needed for narcotic overdose rescue 11/27/2024 Cervical radiculopathy (ICD-10 - M54.12) Medical record dated 11/20/[address] Brody service has been reviewed: status post left L4-5 microdiskectomy 06/11/2021 , status post C5-6 ACDF/fusion 08/11/2023, status post L3-5 decompression with posterior instrumentation on 08/13/2024, and incision and drainage of lumbar wound on 09/19/2024 C-spine x-ray today C -spine MRI study has been ordered by Dr. Oseguera, we will follow the result L-spine x-ray 11/18/2024: Mild lumbar spondylosis anterior and posterior fusion from L3-L5, no hardware failure, disc space narrowing at L5-S1 level, 3 mm retrolisthesis of L2 on L3, chronic anterior wedge from T11-L1, mild disc space narrowing at L1-2 and L2-3 C-spine x-ray 11/27/24 : C5-6 ACDF, cervical spondylosis with facet arthropathy, loss normal lordosis of cervical spine , no instability on dynamic view, multilevel cervical spondylosis most significant at C4-5. imaging study has been reviewed and updated with the patient , and all the questions have been answered with satisfaction Patient reports oxycodone makes him feel weird and dysfunction, patient would like to back to [place] as we gave to him previously , patient denies illicit drug use, patient wants to resume pregabalin and continue Robaxin. -OPIOID USAGE EVALUATION: Opioid risk: Denies ETOH or Drug abuse history. Analgesia effect: pain meds allowed patient to: standing /walking/ moving around Activity: independent ADL Adverse event: none Aberrant behavior: none reported UDS: Random urine testing based on risk stratification. UDS today BOOM OPERATOR reviewed which is appropriate 11/27/24 Greater and lesser occipital block has been ordered for the occipital headache [place] 7.5 mg q.6 hours as needed, 120 tablets for 30 day supply given no refills Pregabalin 50 mg t.i.d., 90 tablets for 30 day supply given Narcan spray given using as needed for narcotic overdose rescue 11/27/2024 Other Body Mass Index: Care Instructions material was published, High Blood Pressure: Care Instructions material was published, Learning About How to Have a Healthy Back material was published Medical record dated 11/20/[address] Brody service has been reviewed: status post left L4-5 microdiskectomy 06/11/2021 , status post C5-6 ACDF/fusion 08/11/2023, status post L3-5 decompression with posterior instrumentation on 08/13/2024, and incision and drainage of lumbar wound on 09/19/2024 C-spine x-ray today C -spine MRI study has been ordered by Dr. Oseguera, we will follow the result L-spine x-ray 11/18/2024: Mild lumbar spondylosis anterior and posterior fusion from L3-L5, no hardware failure, disc space narrowing at L5-S1 level, 3 mm retrolisthesis of L2 on L3, chronic anterior wedge from T11-L1, mild disc space narrowing at L1-2 and L2-3 C-spine x-ray 11/27/24 : C5-6 ACDF, cervical spondylosis with facet arthropathy, loss normal lordosis of cervical spine , no instability on dynamic view, multilevel cervical spondylosis most significant at C4-5. imaging study has been reviewed and updated with the patient , and all the questions have been answered with satisfaction Patient reports oxycodone makes him feel weird and dysfunction, patient would like to back to [place] as we gave to him previously , patient denies illicit drug use, patient wants to resume pregabalin and continue Robaxin. -OPIOID USAGE EVALUATION: Opioid risk: Denies ETOH or Drug abuse history. Analgesia effect: pain meds allowed patient to: standing /walking/ moving around Activity: independent ADL Adverse event: none Aberrant behavior: none reported UDS: Random urine testing based on risk stratification. UDS today BOOM OPERATOR reviewed which is appropriate 11/27/24 Greater and lesser occipital block has been ordered for the occipital headache [place] 7.5 mg q.6 hours as needed, 120 tablets for 30 day supply given no refills Pregabalin 50 mg t.i.d., 90 tablets for 30 day supply given Narcan spray given using as needed for narcotic overdose rescue Plan Of Treatment Treatment Notes Assessment Notes Other Body Mass Index: Car e Instructions material was published, High Blood Pressure: Care Instructions material was published, Learning About How to Have a Healthy Back material was published Pending Test Test Name Order Date X ray : Spines, cervical 4 views 025 EtS (Alcohol Metabolite) - Urine 025 QMP Plus D/L - Urine 11/27/2024 Synthetic Stimulants 11/27/2024 Rn Building Benzodiazepines 11/27/2024 Synthetic Cannabinoids 11/27/2024 Rn Building Opioids 11/27/2024 Hallucinogens/Dissociatives 11/27/2024 DRILL RUNNER Other 11/27/2024 Marijuana - Urine 11/27/2024 PainComp Medication Compliance - Urine 0 11/27/2024 [facility] Required Information 11/27/2024 Next Appt Details Provider Name:Twan Castillo, 05/2025 08:00:00 AM, [address] [place] [address], [address], [address], Progress Notes * Tramaine MARIN LDOB:1970 (53 yo M)Acc No.[id number]:11/27/2024 Progress Notes Patient: Tramaine REINA Provider: Hay Castillo MD :1970 A ge:53 Y S ex:Male Date:11/27/2024 Address:[address] [place], [place] [id number] Subjective: * Chief Complaints: * n eeds neck sx UDS NEEDED * HPI: * Established Patient: Carla afrnsworth has constant headache since discharge hospital, it is mainly located on the parietal and occipital area, Patient did try l umbar brace , patient is cutting cigarette to 5 cigarettes, patient has bone stimulator, patient did try the physical therapy but cannot afford the cost, patient has been off work for 4 months, patient is considering apply disability, patient is doing the virtual physical therapy exercise on neck and low back, patient is still complains the pain and numbness tingling sensation in bilateral fingertips as well as leg. Established Patient Questionnaire: 1 . Are you currently taking a Blood Thinner Medication? N o 2 . Do you have an allergy to I.V. Contrast or Shellfish? N o 3 . List any changes to medical history. (eg; Falls, Test, Scans, Blood Work, and Hospitalizations) S can 4 . Have you been exposed to anyone with COVID in the last 2 weeks? N o 5 . Have you been exposed to anyone with the FLU in the last 72 hours? N o 6 . What is your Pain Level today? (1-10, Scroll and select one) 8 7 . Where is your pain located? H ead,Neck,Left Arm,Left Hand,Right Hand,Mid Back,Low Back,Left Leg,Right Leg,Left Foot,Toes 8 . After your last visit, what Percentage of improvement did you experience? 3 0 9 . Are you doing Physical Therapy, Chiropractic, or Massage Therapy? N o 1 0. Are you doing an at home Exercise Program? Y es 1 1. What activities or positions increase your Pain? (Scroll to select one or multiple) S tanding,Walking,Chores 1 2. What activities or positions decrease your Pain? (Scroll to select one or multiple) L mere down 1 3. How would you describe your Pain? (Scroll to select one or multiple) S tabbing,Aching,Throbbing,Burning 1 4. Are you having difficulty sleeping? Y es 1 5. When was the last time you had your blood drawn? (Please enter your best estimate) F eb 15 2024 1 6. When was your last Mammogram? (Please put N/A if you are male, for Females please put the best Estimate or Never. ) N ever 1 7. When was your last Colonoscopy? (Please put the best Estimate or Never. ) 2 023 1 8. Do you need any refills on your medications today? Y es 1 9. Please list ALL changes to Medications or Allergies? N one 2 0. Are you Diabetic? N o 2 1. Do you suffer from Constipation? N o * ROS: G eneral/Constitutional: Denies Change appetite. Denies Chills. Denies Fatigue. Denies Fever. Denies Lightheadedness. ENT: Denies Tinnitus. Denies Dysphagia. Ophthalmologic: Denies Blurred vision. * Medical History: * Surgical History: A CDF umbar decompression/laminectomy surgery at L4-5 level tatus post left L4-5 microdiskectomy 06/11/2021 , status post C5-6 ACDF/fusion 08/11/2023, status post L3-5 decompression with posterior instrumentation on 08/13/2024, and incision and drainage of lumbar wound on * Hospitalization/Major Diagno stic Procedure: n o hospitalization since last visit * Family History: F ather: , thyroid cancer. M other: alive. * Social History: * Established Patient: S moking D o you smoke? Y es H ow many packs per day? 1 S sherron when have you smoked? 0 10/09/1999 Carla farnsworth is a smoker, working on quitting. Down to half a pack per day. * Medications: T akingAlbuterol Sulfate HFA 108 (90 Base) MCG/ACT Aerosol Solution Inhalation predniSONE 20 MG Tablet Oral tiZANidine HCl 2 MG Tablet Oral HYDROcodone-Acetaminophen 7.5-325 MG Tablet 1 tablet Orally every 6 hrs , Notes to Pharmacist: Fill 08/05/24Medication List reviewed and reconciled with the patientTaking Albuterol Sulfate HFA 108 (90 Base) MCG/ACT Aerosol Solution Inhalation Taking predniSONE 20 MG Tablet Oral Taking tiZANidine HCl 2 MG Tablet Oral Taking HYDROcodone-Acetaminophen 7.5-325 MG Tablet 1 tablet Orally every 6 hrs , Notes to Pharmacist: Fill 08/05/24Medication List reviewed and reconciled with the patient * Allergies: S udafed: Otherno[Allergies Verified] Objective: * Vitals: H t: 70 in, Wt:175lbs, BP:144/77mm Hg, Pain scale:81-10, HR:83/min, BMI:25.11Index, Ht-cm: 177.8 cm, Wt-k.38 kg, Body Surface Area: 1.98. * Examination: G eneral Examination: Carla farnsworth is alert and oriented to time, place, and person. No appeal distress. Vital signs are stable. Patient is afebrile. Respiration is nonlabored . No deficits reflex, motor, and sensory examination, bilateral upper extremities and bilateral lower extremities. No slurred speech, sitting comfortably on the chair, well- healed surgical scar tissue on the neck and low back, walking unassisted, limited range motion of the cervical spine on flexion/extension/rotation/side bending, increased myofascial tone was tenderness on the cervical paraspinal muscle tenderness on the basal skull which can reproduce the headache, cervical facet loading test positive bilaterally Limited range motion of lumbar spine flexion/extension/side bending, lumbar facet loading test positive bilaterally, straight leg raising test positive on the left side. Assessment: * Assessment: 1. L ow back pain - M54.50 (Primary) 2 . P ost laminectomy syndrome - M96.1? 3. S acroiliitis - M46.1 4 . C ervicalgia - M54.2 ? 5 . C ervical spondylosis - M47.812 6 . C ervical radiculopathy - M54.12 Medical record dated 11/20/[address] Brody service has been reviewed: s tatus post left L4-5 microdiskectomy 06/11/2021 , status post C5-6 ACDF/fusion 08/11/2023, status post L3-5 decompression with posterior instrumentation on 08/13/2024, and incision and drainage of lumbar wound on 09/19/2024 C-spine x-ray today C -spine MRI study has been ordered by Dr. Oseguera, we will follow the result L-spine x-ray 11/18/2024: Mild lumbar spondylosis anterior and posterior fusion from L3-L5, no hardware failure, disc space narrowing at L5-S1 level, 3 mm retrolisthesis of L2 on L3, chronic anterior wedge from T11-L1, mild disc space narrowing at L1-2 and L2-3 C-spine x-ray 11/27/24 : C5-6 ACDF, cervical spondylosis with facet arthropathy, loss normal lordosis of cervical spine , no instability on dynamic view, multilevel cervical spondylosis most significant at C4-5. imaging study has been reviewed and updated with the patient , and all the questions have been answered with satisfaction Patient reports oxycodone makes him feel weird and dysfunction, patient would like to back to Spicewood as we gave to him previously , patient denies illicit drug use, patient wants to resume p regabalin and c ontinue Robaxin. -OPIOID USAGE EVALUATION: Opioid risk: D enies ETOH or Drug abuse history. Analgesia effect: pain meds allowed patient to: s tanding /walking/ moving around Activity: i ndependent ADL Adverse event: n one Aberrant behavior: none reported UDS: Random urine testing based on risk stratification. UDS today P MP reviewed which is appropriate 3 /5/25 G reater and lesser occipital block h as been ordered for the occipital headache Spicewood 7.5 mg q.6 hours as needed, 120 tablets for 30 day supply given no refills Pregabalin 50 mg t.i.d., 90 tablets for 30 day supply given Narcan spray given using as needed for narcotic overdose rescue Plan: * Treatment: 2.?Cervical spondylosis?LAB: EtS (Alcohol Metabolite) - Urine (Collection Date & Time - 11/27/2024 01:57 PM) ?LAB: QMP Plus D/L - Urine (Collection Date & Time - 11/27/2024 01:57 PM) ?LAB: Synthetic Stimulants (Collection Date & Time - 11/27/2024 01:57 PM) ?LAB: Rn Building Benzodiazepines (Collection Date & Time - 11/27/2024 01:57 PM) ?LAB: Synthetic Cannabinoids (Collection Date & Time - 11/27/2024 01:57 PM) ?LAB: Rn Building Opioids (Collection Date & Time - 11/27/2024 01:57 PM) ?LAB: Hallucinogens/Dissociatives (Collection Date & Time - 11/27/2024 01:57 PM) ?LAB: DRILL RUNNER Other (Collection Date & Time - 11/27/2024 01:57 PM) ?LAB: Marijuana - Urine (Collection Date & Time - 11/27/2024 01:57 PM) ?LAB: PainComp Medication Compliance - Urine (Collection Date & Time - 11/27/2024 01:57 PM) ?LAB: [facility] Required Information (Collection Date & Time - 11/27/2024 01:57 PM) ?Imaging: X ray : Spines, cervical 4 views* 3.?Cervical radiculopathy?LAB: EtS (Alcohol Metabolite) - Urine (Collection Date & Time - 11/27/2024 01:57 PM) ?LAB: QMP Plus D/L - Urine (Collection Date & Time - 11/27/2024 01:57 PM) ?LAB: Synthetic Stimulants (Collection Date & Time - 11/27/2024 01:57 PM) ?LAB: Rn Building Benzodiazepines (Collection Date & Time - 11/27/2024 01:57 PM) ?LAB: Synthetic Cannabinoids (Collection Date & Time - 11/27/2024 01:57 PM) ?LAB: Rn Building Opioids (Collection Date & Time - 11/27/2024 01:57 PM) ?LAB: Hallucinogens/Dissociatives (Collection Date & Time - 11/27/2024 01:57 PM) ?LAB: DRILL RUNNER Other (Collection Date & Time - 11/27/2024 01:57 PM) ?LAB: Marijuana - Urine (Collection Date & Time - 11/27/2024 01:57 PM) ?LAB: PainComp Medication Compliance - Urine (Collection Date & Time - 11/27/2024 01:57 PM) ?LAB: [facility] Required Information (Collection Date & Time - 11/27/2024 01:57 PM)4.?Others? Notes: Body Mass Index: Care Instructions material was published, High Blood Pressure: Care Instructions material was published, Learning About How to Have a Healthy Back material was published? * Labs: * L ab: [employer] [facility] Healthcare Profile (Collection Date & Time - 11/27/2024 01:57 PM) Value Reference Range B ioDetect EXPECTED - * 6 CYNDI Ur Ql Cfm <10 >=10 - ng/mL * A lcohol Metabolites Ur Ql Cfm <200 >=200 - ng/ mL * E thyl sulfate Ur Cfm-mCnc <200 >=200 - ng/mL * A mphetamines Ur Ql Cfm <100 >=100 - ng/mL * B enzodiaz Ur Ql Cfm <50 >=50 - ng/mL * B uprenorphine Ur Ql Cfm <1 >=1 - ng/mL * B ZE Ur Ql Cfm <50 >=50 - ng/mL * F entanyl+Norfentanyl Ur Ql Cfm <5 >=5 - ng/m L * G abapentin Ur Ql <5 >=5 - mcg/mL * C arisoprodol+Meprob Ur Ql Scn <200 >=200 - ng/ mL * M ethadone Ur Ql Cfm <200 >=200 - ng/mL * M eperidine Ur Ql Cfm <100 >=100 - ng/mL * O piates Ur Ql Cfm >=100 >=100 - ng/mL * T ramadol Ur Ql Cfm <100 >=100 - ng/mL * C reat Ur-mCnc 152.2 20 - 370 - mg/dL * p H Ur 5.51 4.5 - 9.0 - * N PS Not Otherwise Specified <1 >=1 - ng/mL * H ydrocodone Ur CMP 8177 >=100 - ng/mL * H ydromorphone Ur Cfm-mCnc 1159 >=100 - ng/mL * D HC Ur Cfm-mCnc 500 >=100 - ng/mL * N orhydrocodone Ur Cfm-mCnc 2947 >=100 - ng/mL * H ydrocodone Ur Cfm-mCnc 3571 >=100 - ng/mL * P regabalin(Lyrica) Ur Ql Cfm <5 >=5 - mcg/mL * H allucinogens/Dissociatives Ur Ql Cfm <1 >=1 - ng/mL * D esigner Benzodiazepines Ur Ql Cfm <1 >=1 - ng/mL * D esigner Opioids Ur Ql Cfm <1 >=1 - ng/mL * T HC Ur Ql Scn <20 >=20 - ng/mL * S ynthetic Stimulants Ur Ql Cfm <1 >=1 - ng/m L * S ynthetic Cannabinoids Ur Ql Cfm <1 >=1 - ng /mL * T izanidine Ur CMP <5 >=5 - ng/mL * O xymorphone Ur Cfm-mCnc 154 >=100 - ng/mL * T izanidine Ur Ql Cfm <25 >=25 - ng/mL * O xymorphone Ur CMP 154 A >=100 - ng/mL * [employer], support 04/2025 12:35:10 : This order was created by the Interface. * Procedure Codes: 7 2049 X-RAY EXAM OF NECK SPINE 4 OR 5 VIEWS * Preventive Medicine: U RINE DRUG SCREENING MEDICAL NECESSITY: The [place] Federation of State Medical Boards, APS, AAPM, and ASIPP all recommend routine UDTs for patients on chronic opioids. Chronic pain patients not receiving controlled substances can also benefit from random UDT since there are higher rates of drug misuse, abuse, and addiction in this population. Caring for and treating patients on controlled substances poses unique challenges for both physicians and their staff. These challenges are serious and include: patients providing false and misleading medical histories, not maintaining compliance with therapeutic drug regimens and using illicit drugs. Patients non-compliant behavior with prescribed medications, such as combining medications or using illicit drugs with legally prescribed ones, can result in harm to themselves and others. So the urine Drug screening can help improve patient safety as it relates to accurately establishing medication use, identifying dangerous drug to drug cross-reactions and avoiding false patient dismissals based on inconsistent immunoassay tests. -To monitor patient's compliance -To monitor patient's safety -To monitor patient's pain control -To monitor any side effects, cross-reactions Urine Drug Screen completed today for suspicion of illicit drug use and compliance monitoring measures. Discussed side effects of opioid and medication therapies. Discussed potential for addiction/tolerance/abuse/diversion. Discussed Opioid Agreement in detail and answered all questions. Discussed side effects of NSAIDs and other pain medication and muscle relaxants in detail. Discussed possibility of GI bleed, Gastric irritation or esophagitis from pain medications including NSAIDs. Also discussed possibility of cardiac side effects of NSAIDS as well. Patient verbalized understanding. The risks of narcotic therapy including potential addiction/abuse, sedation, risk for falls, and constipation were discussed. The theory behind hyperalgesia with chronic use was also discussed. Pt is advised that while on these medications he/she is not to drive, operate heavy machinery, climb ladders or heights, and they are to use them sparingly for relief of severe pain. The patient understands that if they misuse or do not follow our current plan of care, they may be terminated from my care and will be asked to find another physician. The patient expresses understanding of these issues and questions were answered. Greater than 50% of time spent with the patient today was significant for counseling and coordination of care required for this visit. We have evaluated the patient using PMQ-R, CESD-R and GPCOG assessments. Based on data collected from the PMQ-R, we are evaluating the risk for abuse, misuse and diversion. Furthermore, we are screening the patient for depression using the CESD-R assessment. Lastly, we are utilizing GPCOG to ensure that the current treatment plan is not impairing cognition. BOOM OPERATOR and UDS monitored routinely Patient does not exhibit any somnolence or slurred speech today Discussed with patient about use of Narcan during an emergency for opioid reversal treatment. Yearly Controlled Substances/ Pain Agreement and Consent for Chronic Opioid Therapy is discussed and signed .The patient is counseled on the benefits and risks of long-term opioid treatment (e.g., dependence, tolerance, addiction, sedation, impaired motor skill and coordination and thus increased risks for falls and operating a motor vehicle or heavy machinery, and other adverse effects such as opioid-induced constipation), and alternative medications. I also reviewed the clinic's Opioid Treatment Policy and agreement with the patient, including provisions that address the following: o Expectation of a single prescriber o Periodic urine drug screening o Expectation of no concurrent use of medications not prescribed for the patient (eg, benzodiazepines, other opioids, THC, stimulants, alcohol) o No early refills o Periodic review of PDMP queries. * Billing Information: * Visit Code: 45094 Office Visit, Est Pt., Level 4. * Procedure Codes: 32489 X-RAY EXAM OF NECK SPINE 4 OR 5 VIEWS. * Sign off status: Completed true * Provider: Hay Castillo MD Date: 11/27/2024 Generated for Junior modi/Inna/Barbaraitting on: 0 12/31/2024 05:30 PM CDT History and Physical Notes * HPI (History of Present Illness) Category Sub-Category Detail Notes Category Not es *Established Patient Established Patient Questionnaire: 1. Are you currently taking a Blood Thinner Medication?: No 2. Do you have an allergy to I.V. Contra st or Shellfish?: No 3. List any changes to medic al history. (eg; Falls, Test, Scans, Blood Work, and Hospitalizations): Scan 4. Have you been exposed to anyone with COVID in the last 2 weeks?: No 5. Have you been exposed to anyone with the FLU in the last 72 hours?: No 6. What is your Pain Level today? (1-10, Scroll and select one): 8 7. Where is your pain locate d?: Head,Neck,Left Arm,Left Hand,Right Hand,Mid Back,Low Back,Left Leg,Right Leg,Left Foot,Toes 8. After your last visit, wh at Percentage of improvement did you experience?: 30 9. Are you doing Physical Therapy, Chiro practic, or Massage Therapy?: No 10. Are you doing an at home Exercise Pr ogram?: Yes 11. What activities or posit ions increase your Pain? (Scroll to select one or multiple): Standing,Walking,Chores 12. What activities or posit ions decrease your Pain? (Scroll to select one or multiple): Lying down 13. How would you describe y our Pain? (Scroll to select one or multiple): Stabbing,Aching,Throbbing,Burning 14. Are you having difficulty sleeping?: Yes 15. When was the last time y ou had your blood drawn? (Please enter your best estimate): Nov 09 2024 16. When was your last Mammo gram? (Please put N/A if you are male, for Females please put the best Estimate or Never. ): Never 17. When was your last Colon oscopy? (Please put the best Estimate or Never. ): 2022 18. Do you need any refills on your medi cations today?: Yes 19. Please list ALL changes to Medicatio ns or Allergies?: None 20. Are you Diabetic?: No 21. Do you suffer from Constipation?: No Examination Category Sub-Category Detail Notes Category Not es General Examination Patient is alert and oriented to time, place, and person. No appeal distress. Vital signs are stable. Patient is afebrile. Respiration is nonlabored . No deficits reflex, motor, and sensory examination, bilateral upper extremities and bilateral lower extremities. No slurred speech, sitting comfortably on the chair, well-healed surgical scar tissue on the neck and low back, walking unassisted, limited range motion of the cervical spine on flexion/extension/rotation/arnol e bending, increased myofascial tone was tenderness on the cervical paraspinal muscle tenderness on the basal skull which can reproduce the headache, cervical facet loading test positive bilaterally Limited range motion of lumbar spine flexion/extension/side bending, lumbar facet loading test positive bilaterally, straight leg raising test positive on the left side
--- OUTSIDE RECORDS SUMMARY | 2024-12-31 17:30 | XMS_ITS | Referral Summary ---
Author Organization [facility] (formerly [facility])[3] at [facility] Address [address] [place] [address] Care Team Providers Care Vice President Of Development Name Role Phone Elton De La Fuente MD Primary Care Provider Encounters Date Type Department Care Team Description 10/17/2024 8:34 AM CHROMIUM PLATER - 10/17/2024 11:59 PM CHROMIUM PLATER Hospital Encounter [facility] - Interventional Radiology [address] [place] [phone] Infection following a procedure, other surgical site, subsequent encounter Discharge Disposition: Discharge to home or self care 09/18/2024 7:53 PM CHROMIUM PLATER - 10/05/2024 11:00 AM CHROMIUM PLATER Hospital Encounter [facility] [address] [place] [phone] Kita Astudillo MD Willis, Devin Ray, MD Sufi, MD Yessica Vigil Fatima A., MD Alkaade, Saad, MD Hammes, Amanda Jane, MD Teckchandani, Renu, MD Wound infection (Primary Dx); Cellulitis of other specified site; Cellulitis, unspecified cellulitis site [L03.90]; Lumbar stenosis with neurogenic claudication [M48.062] Discharge Disposition: Discharge to home or self care from Last 3 Months Allergies Active Allergy Reactions Criticality Noted Date Comments Pseudoephedrine Other (See comments) Low 06/02/2021 shakey Medications methocarbamoL (ROBAXIN) 750 mg tablet Take 1 tablet (750 mg total) by mouth 3 (three) times a day Active oxyCODONE-acetamino phen (PERCOCET) 5-325 mg per tabletIndications:P ain Take 1 tablet by mouth every 4 (four) hours as needed for pain 10 tablet 4 Active acetaminophen (TYLENOL) 325 mg tabletIndications:F ever,Pain Take 2 tablets (650 mg total) by mouth every 4 (four) hours as needed for pain 4 Active docusate sodium (COLACE) 100 mg capsuleIndications: constipation Take 1 capsule (100 mg total) by mouth 2 (two) times a day 4 Active nicotine (NICODERM CQ) [address] 1 patch on the skin daily 5 Active ondansetron ODT (ZOFRAN-ODT) 4 mg disintegrating tabletIndications:N ausea and Vomiting Take 1 tablet (4 mg [...] times a day 6 capsule 5 Active Active Problems Problem Noted Date Diagnosed Date [...] oz pur e alcohol) Recovering alcoholic-whiskey [facility] Utilities Answer Date Recorded In the past 12 months has [employer], [employer] oil, or water [employer] threatened to shut off services in your [...] any clubs o r organizations such as amish groups, unions, fraternal or athletic groups, or [...] any time in the past 12 m [facility], were you homeless or living in a long-term (including now)? No 09/19/2024 Personal Safety Answer Date Recorded Have you ever been in or are you currently in a harmful physical or emotional relationship or is someone making you feel afraid or unsafe? 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 Not on file Not on file Not on file Last Filed Vital Signs Vital Sign Reading Time Taken Comments Blood Pressure 173/100 10/17/2024 9:20 AM CHROMIUM PLATER Pulse 69 10/17/2024 9:20 AM CHROMIUM PLATER Temperature 37.3 C (99.1 F) 10/17/2024 8:45 AM CHROMIUM PLATER Respiratory Rate 16 10/17/2024 9:20 AM CHROMIUM PLATER Oxygen Saturation 95% 10/17/2024 9:20 AM CHROMIUM PLATER Inhaled Oxygen Concentration - - Weight 87.1 kg (192 lb) 10/17/2024 8:45 AM CHROMIUM PLATER Height 182.9 cm (6') 10/17/2024 8:45 AM CHROMIUM PLATER Body Mass Index 26.04 10/17/2024 8:45 AM CHROMIUM PLATER Plan of Treatment Not on file Medical Devices Implanted Type Area Electrical Logging Operator Device Identifier Shelf Expiration Date Model / Serial / Lot Biocomposites Stimulan Rapid Cure Kit [employer] 5cc 12.5cc Bone Void 620-005 - [id number] Implanted:Qty: 1 on 08/13/2024 by Kevin Brody MD at [facility] N/A: Spine Lumbar Bi[employer]ites [id number] 04/24/2027 620-005 / / [id number] [employer] Cage Spinal Lumbar 10 Degree Tlif Expandable 7-11.5mm Titanium [id number] - [id number] Implanted:Qty: 2 on 08/13/2024 by Kevin Brody MD at [facility] N/A: Spine Lumbar [employer] 360-[id number] 10 / / Amina Spine 4.5mm 35mm Polyaxial Spine Screw Bone Deformity [id number] - [id number] Implanted:Qty: 6 on 08/13/2024 by Kevin Brody MD at [facility] N/A: Spine Lumbar Amina Spine [id number] 5 / / Amina Spine 4.5mm 75mm Contour Ulises Spinal Cocr [id number] - [id number] Implanted:Qty: 2 on 08/13/2024 by Kevin Brody MD at [facility] N/A: Spine Lumbar Amina Spine [id number] 5 / / Shokan Spine 26mm Semiadjustable Transverse Spine Connector Ulises Posterior [id number] - [id number] Implanted:Qty: 1 on 08/13/2024 by Kevin Brody MD at [facility] N/A: Spine Lumbar Shokan Spine [id number] 6A / / Shokan Spine 32mm Semiadjustable Transverse Spine Connector Ulises Posterior [id number] - [id number] Implanted:Qty: 1 on 08/13/2024 by Kevin Brody MD at [facility] N/A: Spine Lumbar Shokan Spine [id number] 2A / / Procedures Procedure Name Priority Date/Time Associated Diagnosis Comments IR PICC LINE PLACEMENT > 5 YEARS Schedule Routine, Read Routine (OP Routine) 10/17/2024 9:26 AM CHROMIUM PLATER Infection following a procedure, other surgical site, subsequent encounter from Last 3 Months Results * IR PICC Line Placement Over 5 Years of Age (10/17/2024 9:26 AM CHROMIUM PLATER) Anatomical Region Laterality Modality Body N/A X-Ray Angiograph y 10/17/2024 10:2 5 AM CHROMIUM PLATER Impressions 10/17/2024 10:25 AM CHROMIUM PLATER Successful nontunneled catheter placement. PLAN: The catheter is ready for immediate use. When treatment is completed, this catheter can be removed at the bedside according to standard hospital protocol. Electronically signed by: Patrica Garnica PA-C Narrative 10/17/2024 10:25 AM CHROMIUM PLATER EXAMINATION: NONTUNNELED CENTRAL VENOUS CATHETER PLACEMENT (STD) [...] was obtained. Prior to beginning the procedure, [place] Protocol was used to confirm the patient's [...] was obtained. Prior to beginning the procedure, [place] Protocol was used to confirm the patient's [...] by: Patrica Garnica PA-C Brett Green MD IM IR PROCEDURES Fin al Result from Last [address] [place] [address] CHOICE PRF P[place] Advance Directives For more information, please contact: [phone] * Full Code (Latest Code Status on File) Date Activated Date Inactivated Comments 09/19/2024 12:47 PM 10/05/2024 3:11 PM * Full Code Date Activated Date Inactivated Comments 09/18/2024 8:09 PM 09/19/2024 12:47 PM * Full Code Date Activated Date Inactivated Comments 08/13/2024 2:58 PM 08/14/2024 4:58 PM Care Teams Vice President Of Development Relationship Specialty Start Date End Date Elton De La Fuente MD PCP - General Family Medicine 06/02/21
--- OUTSIDE RECORDS SUMMARY | 2024-12-31 17:30 | XMS_ITS ---
Author Organization [facility] Address [address] [place] [address] [address] [place] [address] Care Team Providers Care Remote Coders Name Role Phone Mary Grace SOMMERS, Kevin Unavailable Unavailable Twan Castillo Unavailable [phone] REASON FOR VISIT needs neck sx UDS NEEDED Encounters Encounter Location Date Provider Diagnosis [facility] [address] [place] [address] [address] [place] [address] 11/20/2024 Twan Castillo Plan Of Treatment Next Appt Details Provider Name:Twan Castillo, 05/2025 08:00:00 AM, [id number] [place] [address], [address], [place], [address], Progress Notes * Tramaine MARIN LDOB:1970 (54 yo M)Acc No.[id number]:11/20/2024 Progress Notes Patient: Tramaine REINA Provider: Hay Castillo MD :1970 A ge:53 Y S ex:Male Date:11/20/2024 Address:[address] [place], [place] [phone] Subjective: * Chief Complaints: * 1 . needs neck sx UDS NEEDED. * Medical History: Objective: * Vitals: Assessment: Plan: * Treatment: * Billing Information: * Visit Code: * Procedure Codes: * Electronic signature of Twan Castillo MD on 12/31/2024 at 05:30 PM CDT Sign off status: Pending * Provider: Hay Castillo MD Date: 11/20/2024 Generated for Junior modi/Inna/eTransmitting on: 0 12/31/2024 05:30 PM CDT
--- OUTSIDE RECORDS SUMMARY | 2024-12-31 17:30 | XMS_ITS | Clinical Summary ---
Author Organization [facility] [place] Address [address] [place] [address] Care Team Providers Care Twister In Name Role Phone Elton De La Fuente MD Primary Care Provider [phone] Allergies Active Allergy Reactions Criticality Noted Date [...] Department Care Team Description 10/17/2024 8:34 AM DOUBLER OPERATOR - 10/17/2024 11:59 PM DOUBLER OPERATOR Hospital Encounter [facility] - Interventional Radiology [address] [place] [phone] Infection following a procedure, other surgical site, subsequent encounter Discharge Disposition: Discharge to home or self care 09/18/2024 7:53 PM DOUBLER OPERATOR - 10/05/2024 11:00 AM DOUBLER OPERATOR Hospital Encounter [facility] [address] [place] [phone] Kita Astudillo MD Willis, MD Enoc Schroeder, MD Yessica Vigil Fatima A., MD Alkaade, Saad, MD Hammes, MD Good Chapman Renu, MD Wound infection (Primary Dx); Cellulitis of other specified site; Cellulitis, unspecified cellulitis site [L03.90]; Lumbar stenosis with neurogenic claudication [M48.062] Discharge Disposition: Discharge to home or self care from Last 3 Months Immunizations Immunization Administration [...] 0.6 oz pur e alcohol) Recovering alcoholic-whiskey [facility] Utilities Answer Date Recorded In the past 12 months has e Solid[employer], gas, oil, or water company threatened to [...] often do you attend chur ch or lutheran services? Never 09/19/2024 Do you belong to any clubs o r organizations such as christian groups, unions, fraternal or athletic groups, or [...] time in the past 12 m [facility], were you homeless or living in a skilled nursing (including now)? No 09/19/2024 Personal Safety Answer Date Recorded Have you ever been in or are you currently in a harmful physical or emotional relationship or is someone making you feel afraid or unsafe? 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 Not on file Not on file Not on file Obstetrics History Last Filed Vital Signs Vital Sign Reading Time Taken Comments Blood Pressure 173/100 10/17/2024 9:20 AM DOUBLER OPERATOR Pulse 69 10/17/2024 9:20 AM DOUBLER OPERATOR Temperature 37.3 C (99.1 F) 10/17/2024 8:45 AM DOUBLER OPERATOR Respiratory Rate 16 10/17/2024 9:20 AM DOUBLER OPERATOR Oxygen Saturation 95% 10/17/2024 9:20 AM DOUBLER OPERATOR Inhaled Oxygen Concentration - - Weight 87.1 kg (192 lb) 10/17/2024 8:45 AM DOUBLER OPERATOR Height 182.9 cm (6') 10/17/2024 8:45 AM DOUBLER OPERATOR Body Mass Index 26.04 10/17/2024 8:45 AM DOUBLER OPERATOR Plan of Treatment Health Maintenance Due [...] Completed 09/21/2024 Medical Devices Implanted Type Area Bunker Worker Device Identifier Shelf Expiration Date Model / Serial / Lot Biocomposites Stimulan Rapid Cure Kit Paste Detective Captain 5cc 12.5cc Bone Void 620-005 - [id number] Implanted:Qty: 1 on 08/13/2024 by Kevin Brody MD at [facility] N/A: Spine Lumbar Biocomposites [id number] 04/24/2027 620-005 / / [id number] [employer] Cage Spinal Lumbar 10 Degree Tlif Expandable 7-11.5mm Titanium [id number] - [id number] Implanted:Qty: 2 on 08/13/2024 by Kevin Brody MD at [facility] N/A: Spine Lumbar [employer] 360-[id number] / / Kelford Spine 4.5mm 35mm Polyaxial Spine Screw Bone Deformity [id number] - [id number] Implanted:Qty: 6 on 08/13/2024 by Kevin Brody MD at [facility] N/A: Spine Lumbar Amina Spine [id number] / / Kelford Spine 4.5mm 75mm Contour Ulises Spinal Cocr [id number] - [id number] Implanted:Qty: 2 on 08/13/2024 by Kevin Brody MD at [facility] N/A: Spine Lumbar Kelford Spine [id number] 5 / / Kelford Spine 26mm Semiadjustable Transverse Spine Connector Ulises Posterior [id number] - [id number] Implanted:Qty: 1 on 08/13/2024 by Kevin Brody MD at [facility] N/A: Spine Lumbar Kelford Spine [id number] 6A / / Kelford Spine 32mm Semiadjustable Transverse Spine Connector Ulises Posterior [id number] - [id number] Implanted:Qty: 1 on 08/13/2024 by Kevin Brody MD at [facility] N/A: Spine Lumbar Amina Spine [id number] 2A / / Procedures Procedure Name Priority Date/Time Associated Diagnosis Comments IR PICC LINE PLACEMENT > 5 YEARS Schedule Routine, Read Routine (OP Routine) 10/17/2024 9:26 AM DOUBLER OPERATOR Infection following a procedure, other surgical site, subsequent encounter from Last 3 Months Results * IR PICC Line Placement Over 5 Years of Age (10/17/2024 9:26 AM DOUBLER OPERATOR) Anatomical Region Laterality Modality Body N/A X-Ray Angiograph y 10/17/2024 10:2 5 AM DOUBLER OPERATOR Impressions 10/17/2024 10:25 AM DOUBLER OPERATOR Successful nontunneled catheter placement. PLAN: The catheter is ready for immediate use. When treatment is completed, this catheter can be removed at the bedside according to standard hospital protocol. Electronically signed by: Patrica Garnica PA-C Narrative 10/17/2024 10:25 AM DOUBLER OPERATOR EXAMINATION: NONTUNNELED CENTRAL VENOUS CATHETER PLACEMENT [...] was obtained. Prior to beginning the procedure, [place] Protocol was used to confirm the [...] was obtained. Prior to beginning the procedure, [place] Protocol was used to confirm the [...] MD IMG IR PROCEDURES Fin al Result from Last [address] [facility] [place] Advance Directives For more information, please contact: [phone] * Full Code (Latest Code Status on File) Date Activated Date Inactivated Comments 09/19/2024 12:47 PM 10/05/2024 3:11 PM * Full Code Date Activated Date Inactivated Comments 09/18/2024 8:09 PM 09/19/2024 12:47 PM * Full Code Date Activated Date Inactivated Comments 08/13/2024 2:58 PM 08/14/2024 4:58 PM Care Teams Twister In Relationship Specialty Start Date End Date Elton De La Fuente MD PCP - General Family Medicine 06/02/21
--- OUTSIDE RECORDS SUMMARY | 2024-12-31 17:30 | XMS_ITS | Clinical Summary ---
Author Organization [facility] Address [address] [place] [address] Care Team Providers Care Environment Coordinator Name Role Phone Elton De La Fuente MD Primary Care Provider [phone] Allergies Active Allergy Reactions Criticality Noted Date [...] Vaccine (1 - 2023-2 5 season) 2024 Meningococcal B Vaccine Aged Out No [...] patient's age to complete this topic Insurance [facility] Care Teams Environment Coordinator Relationship Specialty Start Date End Date Elton De La Fuente MD [address] [address] PCP - General FAMILY PRACTICE 05/08/24
--- OUTSIDE RECORDS SUMMARY | 2024-12-31 17:30 | XMS_ITS | Patient Health Record ---
Author Organization [facility] Address [address] [place] [address] Care Team Providers Care Emergency Room Registered Nurse Name Role Phone Mary Grace SOMMERS, Kevin Unavailable Unavailable Sue Davis Unavailable [phone] Twan Castillo Unavailable [phone] Gilda THOMPSON, Bailey Unavailable [phone] Hillary Staples Unavailable [phone] Allergies Allergen (clinical drug ingredient) Drug/Non Drug Allergy documented on EMR Reaction Allergy Type Onset Date Status Sudafed Other Drug Allergy Active Results Component Value Reference Range Notes IdeaPaint Profil e Reviewed date:12/03/2024 02:55:01 PM Interpretation: Performing Lab:[facility] (CLIA#: [id number]), [address] [place] [address], Director - Inna Pemberton Notes/Report: Analyzed at [facility] (CLIA#: [id number]) - [address] [place] [address] - Digital Librarian: Inna Harris Certifying Store Team Leader: Ann Winter (Remote [id number]) These tests were developed and their performance characteristics determined by [facility]. They have not been cleared or approved [...] Ql Cfm <1 >=1 ng/mL NONE DETECTED PLATEN PRESS OPERATOR APPRENTICE Not Otherwise Specified Ur Ql Cfm <1 >=1 ng/mL NONE DETECTED Synthetic Cannabinoids Ur Ql Cfm <1 >=1 ng/m L NONE DETECTED Hallucinogens/Dissociatives Ur Ql Cfm <1 >=1 ng/mL NONE DETECTED Fabricator Foam Rubber Benzodiazepines Ur Ql Cfm <1 >=1 ng/mL NONE DETECTED Fabricator Foam Rubber Opioids Ur Ql Cfm <1 >=1 ng/mL N ONE DETECTED THC Ur Ql Scn <20 >=20 ng/mL NONE DETECTED Reason For Referral No Information Medications Medication SIG (Take, Route, Frequency, Duration) Notes Start Date End Date Status Narcan 4 MG/0.1ML as directed Nasally for 1 days 11/27/2024 Active predniSONE 20 MG Oral for 4 Days Active Albuterol Sulfate HFA 108 (90 Base) MCG/ACT Inhalation for 25 Days Active HYDROcodone-Acetaminophen 7.5-325 MG 1 tablet Orally every 6 hrs for 30 days 11/27/2024 Active tiZANidine HCl 2 MG Oral for 30 Days Active Pregabalin 50 MG 1 capsule Orally thr ee times a day for 30 days 11/27/2024 Active Problems Problem Type SNOMED Code ICD Code Onset Dates Problem Status W/U Status Risk Notes Problem Cervicalgia (97693925) Cervicalgia (M54.2) Active confirmed Problem Cervical spondylosis (318587624) Cervical spondylosis (M47.812) Active confirmed Problem Sacroiliitis (56861476) Sacroiliitis (M46.1) Active confirmed Problem Cervical radiculopathy (44127925) Cervical radiculopathy (M54.12) Active confirmed Problem Post-laminectomy syndrome (44292205) Post laminectomy syndrome (M96.1) Active confirmed Problem Low back pain (749652997) Low back pain (M54.50) Active confirmed Vital Signs Heart Rate 83 /min 11/27/2024 Height-cm 177.8 cm 11/27/2024 Blood pressure diastolic 77 mm Hg 11/27/2024 Weight-kg 79.38 kg 11/27/2024 Height 70 in 11/27/2024 Blood pressure systolic 144 mm Hg 11/27/2024 Weight 175 lbs 11/27/2024 BMI 25.11 kg/m2 11/27/2024 Encounters Encounter Location Date Provider Diagnosis [facility] [id number] [place] [address] [address] [place] [address] 02/07/2024 Twan Castillo [facility] [address] [place] [address] [address] [place] [address] 02/14/2024 Twan Castillo [facility] [address] [facility] [address] [place] [address] 03/13/2024 Twan Castillo [facility] [address] [place] [address] [address] [place] [address] 03/20/2024 Twan Castillo [facility] [id number] [place] [address] [address] [place] [address] 05/28/2024 Hillary Staples Low back pain M54.50 ; Post laminectomy syndrome M96.1 ; Sacroiliitis M46.1 ; Cervicalgia M54.2 and Other detention (current) drug therapy Z79.899 [facility] [address] [place] [address] [address] [place] [address] 08/05/2024 Bailey Vo Low back pain M54.50 ; Post laminectomy syndrome M96.1 ; Sacroiliitis M46.1 ; Cervicalgia M54.2 ; Cervical spondylosis M47.812 and Cervical radiculopathy M54.12 [facility] [address] [place] [address] [address] [place] [address] 11/27/2024 Twan Castillo Low back pain M54.50 ; Post laminectomy syndrome M96.1 ; Sacroiliitis M46.1 ; Cervicalgia M54.2 ; Cervical spondylosis M47.812 and Cervical radiculopathy M54.12 [facility] [id number] [place] [address] [address] [place] [address] 05/28/2024 Twan Castillo [facility] [address] [place] [address] [address] [place] [address] 06/27/2024 Twan Castillo [facility] [address] [place] [address] [address] [place] [address] 08/05/2024 Sue Davis [facility] [address] [place] [address] [address] [place] [address] 11/27/2024 Twan Castillo Assessments Encounter Date Diagnosis (ICD Code) Assessment Notes Treatment Notes Treatment Clinical Notes Section Notes 05/28/2024 Post laminectomy syndrome (ICD-10 - M96.1) 05/28/2024 Low back pain (ICD-10 - M54.50) Refill for controlled substance sent to supervising physician to be filled Follow-up with Dr. Macias to sooner appt for surgical consult per Dr. Slaughter home stretching and at home exercise program as toleratedFollow -up in one month for med check, sooner if needed 08/05/2024 Low back pain (ICD-10 - M54.50) Prescription for controlled substance sent to supervising physician for renewal 11/27/2024 Low back pain (ICD-10 - M54.50) [...] dysfunction, patient would like to back to [place] as we gave to him previously , patient denies illicit drug use, patient wants to resume pregabalin and continue Robaxin. -OPIOID USAGE EVALUATION: Opioid risk: Denies ETOH or Drug abuse history. Analgesia effect: pain meds allowed patient to: standing /walking/ moving around Activity: independent ADL Adverse event: none Aberrant behavior: none reported UDS: Random urine testing based on risk stratification. UDS today ASSET AVAILABILITY LEADER reviewed which is appropriate 11/27/24 Greater and lesser occipital block has been ordered for the occipital headache [place] 7.5 mg q.6 hours as needed, 120 [...] dysfunction, patient would like to back to [place] as we gave to him previously , patient denies illicit drug use, patient wants to resume pregabalin and continue Robaxin. -OPIOID USAGE EVALUATION: Opioid risk: Denies ETOH or Drug abuse history. Analgesia effect: pain meds allowed patient to: standing /walking/ moving around Activity: independent ADL Adverse event: none Aberrant behavior: none reported UDS: Random urine testing based on risk stratification. UDS today ASSET AVAILABILITY LEADER reviewed which is appropriate 11/27/24 Greater and lesser occipital block has been ordered for the occipital headache [place] 7.5 mg q.6 hours as needed, 120 tablets for 30 day supply given no refills Pregabalin 50 mg t.i.d., 90 tablets for 30 day supply given Narcan spray given using as needed for narcotic overdose rescue 05/28/2024 Sacroiliitis (ICD-10 - M46.1) 08/05/2024 Post laminectomy syndrome (ICD-10 - M96.1) 11/27/2024 Sacroiliitis (ICD-10 - M46.1) Medical record [...] dysfunction, patient would like to back to [place] as we gave to him previously , patient denies illicit drug use, patient wants to resume pregabalin and continue Robaxin. -OPIOID USAGE EVALUATION: Opioid risk: Denies ETOH or Drug abuse history. Analgesia effect: pain meds allowed patient to: standing /walking/ moving around Activity: independent ADL Adverse event: none Aberrant behavior: none reported UDS: Random urine testing based on risk stratification. UDS today ASSET AVAILABILITY LEADER reviewed which is appropriate 11/27/24 Greater and lesser occipital block has been ordered for the occipital headache [place] 7.5 mg q.6 hours as needed, 120 tablets for 30 day supply given no refills Pregabalin 50 mg t.i.d., 90 tablets for 30 day supply given Narcan spray given using as needed for narcotic overdose rescue 05/28/2024 Cervicalgia (ICD-10 - M54.2) 08/05/2024 Sacroiliitis (ICD-10 - M46.1) 05/28/2024 Other detention (current) drug therapy (ICD-10 - Z79.899) 08/05/2024 Cervicalgia (ICD-10 - M54.2) 11/27/2024 Cervicalgia (ICD-10 - M54.2) Medical record [...] dysfunction, patient would like to back to [place] as we gave to him previously , patient denies illicit drug use, patient wants to resume pregabalin and continue Robaxin. -OPIOID USAGE EVALUATION: Opioid risk: Denies ETOH or Drug abuse history. Analgesia effect: pain meds allowed patient to: standing /walking/ moving around Activity: independent ADL Adverse event: none Aberrant behavior: none reported UDS: Random urine testing based on risk stratification. UDS today ASSET AVAILABILITY LEADER reviewed which is appropriate 11/27/24 Greater and lesser occipital block has been ordered for the occipital headache [place] 7.5 mg q.6 hours as needed, 120 [...] dysfunction, patient would like to back to [place] as we gave to him previously , patient denies illicit drug use, patient wants to resume pregabalin and continue Robaxin. -OPIOID USAGE EVALUATION: Opioid risk: Denies ETOH or Drug abuse history. Analgesia effect: pain meds allowed patient to: standing /walking/ moving around Activity: independent ADL Adverse event: none Aberrant behavior: none reported UDS: Random urine testing based on risk stratification. UDS today ASSET AVAILABILITY LEADER reviewed which is appropriate 11/27/24 Greater and lesser occipital block has been ordered for the occipital headache [place] 7.5 mg q.6 hours as needed, 120 tablets for 30 day supply given no refills Pregabalin 50 mg t.i.d., 90 tablets for 30 day supply given Narcan spray given using as needed for narcotic overdose rescue 08/05/2024 Cervical spondylosis (ICD-10 - M47.812) 08/05/2024 Cervical radiculopathy (ICD-10 - M54.12) 11/27/2024 Cervical radiculopathy (ICD-10 - M54.12) Medical [...] dysfunction, patient would like to back to [place] as we gave to him previously , patient denies illicit drug use, patient wants to resume pregabalin and continue Robaxin. -OPIOID USAGE EVALUATION: Opioid risk: Denies ETOH or Drug abuse history. Analgesia effect: pain meds allowed patient to: standing /walking/ moving around Activity: independent ADL Adverse event: none Aberrant behavior: none reported UDS: Random urine testing based on risk stratification. UDS today ASSET AVAILABILITY LEADER reviewed which is appropriate 11/27/24 Greater and lesser occipital block has been ordered for the occipital headache [place] 7.5 mg q.6 hours as needed, 120 tablets for 30 day supply given no refills Pregabalin 50 mg t.i.d., 90 tablets for 30 day supply given Narcan spray given using as needed for narcotic overdose rescue 05/28/2024 Other High Blood Pressure: Care Instructions material was published 08/05/2024 Other Body Mass Index: Care Instructions material was published, High Blood Pressure: Care Instructions material was published 11/27/2024 Other Body Mass Index: Care Instructions [...] dysfunction, patient would like to back to [place] as we gave to him previously , patient denies illicit drug use, patient wants to resume pregabalin and continue Robaxin. -OPIOID USAGE EVALUATION: Opioid risk: Denies ETOH or Drug abuse history. Analgesia effect: pain meds allowed patient to: standing /walking/ moving around Activity: independent ADL Adverse event: none Aberrant behavior: none reported UDS: Random urine testing based on risk stratification. UDS today ASSET AVAILABILITY LEADER reviewed which is appropriate 11/27/24 Greater and lesser occipital block has been ordered for the occipital headache [place] 7.5 mg q.6 hours as needed, 120 tablets for 30 day supply given no refills Pregabalin 50 mg t.i.d., 90 tablets for 30 day supply given Narcan spray given using as needed for narcotic overdose rescue Plan Of Treatment Pending Test Test Name Order Date X ray : Spines, cervical 4 views 025 EtS (Alcohol Metabolite) - Urine 025 QMP Plus D/L - Urine 11/27/2024 Synthetic Stimulants 11/27/2024 Fabricator Foam Rubber Benzodiazepines 11/27/2024 Synthetic Cannabinoids 11/27/2024 Fabricator Foam Rubber Opioids 11/27/2024 Hallucinogens/Dissociatives 11/27/2024 PLATEN PRESS OPERATOR APPRENTICE Other 11/27/2024 Marijuana - Urine 11/27/2024 PainComp Medication Compliance - Urine 0 11/27/2024 [facility] Required Information 11/27/2024 Next Appt Details Provider Name:Twan Castillo, 05/2025 08:00:00 AM, [id number] [place] [address], [address], [place], [address], Insurance Providers Payer Name Payer Address Payer Phone Subscriber Number Group Number Insured Name Patient Relationship to Insured Coverage Start Date Coverage End Date [facility] [address] [place] [address] [id number] Tramaine Marin Self - patient is the insured Medical (General) History Medical History History ICD Code COPD Kidney stones Alcoholism- recovery Depression and anxiety Surgical History Surgery Date(Month/Year) ACDF 2020 lumbar decompression/laminectomy surgery at L4-5 level 2020 status post left L4-5 microd iskectomy 06/11/2021 , status post C5-6 ACDF/fusion 08/11/2023, status post L3-5 decompression with posterior instrumentation on 08/13/2024, and incision and drainage of lumbar wound on Hospitalization History Reason Date(Month/Year) no hospitalization since last visit
--- OUTSIDE RECORDS SUMMARY | 2024-12-31 17:30 | XMS_ITS ---
Author Organization [facility] Address [address] [place] [address] [address] [place] [address] Care Team Providers Care Manufacturing Maintenance Mechanic Name Role Phone Mary Grace SOMMERS, Kevin Unavailable Unavailable Twan Castillo Unavailable [phone] Medications Medication SIG (Take, Route, Frequency, Duration) Notes Start Date End Date Status Narcan 4 MG/0.1ML as directed Nasally for 1 days 11/27/2024 Active HYDROcodone-Acetaminophen 7.5-325 MG 1 tablet Orally every 6 hrs for 30 days 11/27/2024 Active Pregabalin 50 MG 1 capsule Orally thr ee times a day for 30 days 11/27/2024 Active Encounters Encounter Location Date Provider Diagnosis [facility] [address] [place] [address] [address] [place] [address] 11/27/2024 Twan Castillo Plan Of Treatment Medication Medication Name Sig Start Date Stop Date Notes Narcan 4 MG/0.1ML as directed Nasally for 1 days 11/27/2024 HYDROcodone-Acetaminophen 7.5-325 MG 1 tablet Orally every 6 hrs for 30 days 11/27/2024 Pregabalin 50 MG 1 capsule Orally thr ee times a day for 30 days 11/27/2024 Next Appt Details Provider Name:Twan Castillo, 05/2025 08:00:00 AM, [address] [place] [address], [address], [place], [address], Progress Notes * Tramaine MARIN LDOB:1970 (53 yo M)Acc No.[id number]:11/27/2024 Patient: Timoteo REINApaul Guzman :1970 A ge:53 Y S ex:Male Address:[address] [place] [address], [address] * Refills Refill HYDROcodone-Acetaminophen Tablet, 7.5-325 MG, Orally, 120 Tablet, 1 tablet, every 6 hrs, 30 days, Refills=0 Start Pregabalin Capsule, 50 MG, Orally, 90 Capsule, 1 capsule, three times a day, 30 days, Refills=0 Start Narcan Liquid, 4 MG/0.1ML, Nasally, 1, as directed, 1 days, Refills=1 * true * Date: Generated for Junior modi/Inna/Fidelsmitting on: 0 12/31/2024 05:30 PM CDT
== END 2024-12-31 17:26 | disposition home or self-care (01) ==
LOC: CHSIMG 17:27
PROVIDERS: PCP Family Medicine; Visit Provider Neurological Surgery
DX: Z98.1 Arthrodesis status (principal)
CPT/HCPCS: 72100

== ENCOUNTER 2025-05-08 16:25 | Outpatient (CLI) | payer BC, SELFPAY ==
--- OUTSIDE RECORDS SUMMARY | 2025-05-08 16:34 | XMS_ITS | Clinical Summary ---
Author Organization [facility] [place] Address [address] [place] [address] Care Team Providers Care Material Handler 1St Shift Name Role Phone Elton De La Fuente MD Primary Care Provider [phone] Allergies Active Allergy Reactions Criticality Noted Date [...] 0.6 oz pur e alcohol) Recovering alcoholic-whiskey [facility] Utilities Answer Date Recorded In the past 12 months has [employer], gas, oil, or water [employer] threatened to shut off services in your home? No 09/19/2024 Social Connection and Isolation Panel Answer Date Recorded In a typical week, how many times do you talk on the phone with family, friends, or neighbors? More than three times a week 09/19/2024 How often do you get togethe r with friends or relatives? Twice a week 09/19/2024 How often do you attend chur ch or congregational services? Never 09/19/2024 Do you belong to any clubs o r organizations such as restorationist groups, unions, fraternal or athletic groups, or [...] any time in the past 12 m [facility], were you homeless or living in a residential (including now)? No 09/19/2024 Personal Safety Answer Date Recorded Have you ever been in or are you currently in a harmful physical or emotional relationship or is someone making you feel afraid or unsafe? 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 file Not on file Not on file Obstetrics History Last Filed Vital Signs Vital Sign Reading Time Taken Comments Blood Pressure 173/100 10/17/2024 9:20 AM CRYSTALIZER TENDER Pulse 69 10/17/2024 9:20 AM CRYSTALIZER TENDER Temperature 37.3 C (99.1 F) 10/17/2024 8:45 AM CRYSTALIZER TENDER Respiratory Rate 16 10/17/2024 9:20 AM CRYSTALIZER TENDER Oxygen Saturation 95% 10/17/2024 9:20 AM CRYSTALIZER TENDER Inhaled Oxygen Concentration - - Weight 87.1 kg (192 lb) 10/17/2024 8:45 AM CRYSTALIZER TENDER Height 182.9 cm (6') 10/17/2024 8:45 AM CRYSTALIZER TENDER Body Mass Index 26.04 10/17/2024 8:45 AM CRYSTALIZER TENDER Plan of Treatment Health Maintenance Due Date Last Done Comments Colon Cancer Screening-Colonoscopy 1970 Depression Screening 1970 Hepatitis C Screening 1970 Prostate Cancer Screening-PSA 1970 DTaP/Tdap/Td Vaccine (1 - Tdap) 1981 Hepatitis B Screening 1988 Regular Well Visit/Exam 18-64 1988 Pneumococcal vaccine <65 (1 of 2 - PCV) 1989 Zoster Vaccine (1 of 2) 2020 Influenza Vaccine (#1) 2025 09/21/2024 Medical Devices Implanted Type Area Procurement Clerk Device Identifier Shelf Expiration Date Model / Serial / Lot Biocomposites Stimulan Rapid Cure Kit Paste Rn Case Manager 5cc 12.5cc Bone Void 620-005 - [id number] Implanted:Qty: 1 on 08/13/2024 by Kevin Brody MD at [facility] N/A: Spine Lumbar Biocomposites [id number] 04/24/2027 620-005 / / [id number] [employer] Cage Spinal Lumbar 10 Degree Tlif Expandable 7-11.5mm Titanium [id number] - [id number] Implanted:Qty: 2 on 08/13/2024 by Kevin Brody MD at [facility] N/A: Spine Lumbar [employer] 360-[id number] 10 / / [place] Spine 4.5mm 35mm Polyaxial Spine Screw Bone Deformity [id number] - [id number] Implanted:Qty: 6 on 08/13/2024 by Kevin Brody MD at [facility] N/A: Spine Lumbar [place] Spine [id number] 5 / / Sunbury Spine 4.5mm 75mm Contour Ulises Spinal Cocr [id number] - [id number] Implanted:Qty: 2 on 08/13/2024 by Kevin Brody MD at [facility] N/A: Spine Lumbar Amina Spine [id number] 5 / / Amina Spine 26mm Semiadjustable Transverse Spine Connector Ulises Posterior [id number] - [id number] Implanted:Qty: 1 on 08/13/2024 by Kevin Brody MD at [facility] N/A: Spine Lumbar [place]bury Spine [id number] 6A / / Sunbury Spine 32mm Semiadjustable Transverse Spine Connector Ulises Posterior [id number] - [id number] Implanted:Qty: 1 on 08/13/2024 by Kevin Brody MD at [facility] N/A: Spine Lumbar [place] Spine [id number] 2A / / Insurance [facility] H[facility]PPO Address: [facility] [id number] [place] [id number] [place] Advance Directives For more information, please contact: [phone] * Full Code (Latest Code Status on File) Date Activated Date Inactivated Comments 09/19/2024 12:47 PM 10/05/2024 3:11 PM * Full Code Date Activated Date Inactivated Comments 09/18/2024 8:09 PM 09/19/2024 12:47 PM * Full Code Date Activated Date Inactivated Comments 08/13/2024 2:58 PM 08/14/2024 4:58 PM Care Teams Material Handler 1St Shift Relationship Specialty Start Date End Date Elton De La Fuente MD PCP - General Family Medicine 06/02/21
--- OUTSIDE RECORDS SUMMARY | 2025-05-08 16:34 | XMS_ITS | Clinical Summary ---
Author Organization [facility] Address [address] [place] [address] Care Team Providers Care Cell Manager Name Role Phone Elton De La Fuente MD Primary Care Provider [phone] Allergies Active Allergy Reactions Criticality Noted Date [...] of 3 - 19+ 3-dose series) 1989 Pneumococcal Vaccine: 50+ Ye ars (1 of 1 - PCV) 2020 Zoster Vaccines (1 of 2) 2020 COVID-19 [...] patient's age to complete this topic Insurance [facility] Care Teams Cell Manager Relationship Specialty Start Date End Date Elton De La Fuente MD [address] [address] PCP - General FAMILY PRACTICE 05/08/24
[2025-05-08 16:39] LABS: Hematocrit 46.4 % (40.0-54.0); Hemoglobin 14.9 g/dL (14.0-18.0); Immature Granulocyte Percent A 0.3 % (0.0-0.0); Lymphocytes Absolute Auto 2.05 K/mm3 (1.10-4.50); Mean Corpuscular HGB Conc 32.1 g/dL (32-36); Mean Corpuscular Hemoglobin 28.7 pg (27.0-31.0); Mean Corpuscular Volume 89.4 fL (78.0-102.0); Nucleated Red Blood Cells Absolute Auto 0.00 K/mm3 (0.00-0.00); Nucleated Red Blood Cells Perc 0.0 % (0-0.0); Platelet Count Result 162 K/mm3 (150-420); Red Blood Count 5.19 M/mm3 (4.70-6.10); White Blood Count 9.5 K/mm3 (4.8-10.8)
[2025-05-08 17:07] LABS: Alanine Aminotransferase 21 U/L (6-50); Albumin Level 4.8 g/dL (3.5-5.1); Alkaline Phosphatase 80 U/L (38-126); Anion Gap 6 mmol/L (4-12); Aspartate Amino Transferase 34 U/L (17-59); Bilirubin,Total 1.3 mg/dL (0.2-1.3); Blood Urea Nitrogen 12 mg/dL (9-20); Calcium 9.7 mg/dL (8.4-10.2); Carbon Dioxide 29 mmol/L (22-30); Chloride 107 mmol/L (98-107); Creatine Kinase 74 U/L (55-170); Estimated Glomerular Filt Rate > 60; Glucose 85 mg/dL (65-110); Osmolality Calculated 292 mOsm/kg (285-295); Potassium 4.2 mmol/L (3.4-5.0); Sodium 142 mmol/L (137-145); Total Protein 7.4 g/dL (6.3-8.2)
== END 2025-05-08 16:26 | disposition home or self-care (01) ==
LOC: CHSLAB 16:27
DX: M79.10 Myalgia, unspecified site (principal); R82.90 Unspecified abnormal findings in urine
CPT/HCPCS: 36415; 80053; 82550; 85025

== ENCOUNTER 2025-06-04 15:39 | Outpatient (CLI) | payer BC, SELFPAY ==
--- OUTSIDE RECORDS SUMMARY | 2025-03-12 03:30 | XMS_ITS ---
Author Organization [facility] Address [address] [place] [address] [address] [place] [address] Care Team Providers Care Tray Room Worker Name Role Phone Mary Grace SOMMERS, Kevin Unavailable Unavailable Twan Castillo Unavailable [phone] REASON FOR VISIT 2 wk inj f/u- pt wants to do meds Encounters Encounter Location Date Provider Diagnosis [facility] [address] [place] [address] [address] [place] [address] 03/12/2025 Twan Castillo Plan Of Treatment Next Appt Details Provider Name:Twan Castillo, 09/2024 09:30:00 AM, [address] [place] [address], [address], [place], [address], Progress Notes * TOMASTimoteoy LDOB:1970 (54 yo M)Acc No.[id number]:03/12/2025 Progress Notes Patient: Tramaine REINA Provider: Hay Castillo MD :1970 A ge:54 Y S ex:Male Date:03/12/2025 Address:[address] [place], [place] [id number] Subjective: * Chief Complaints: * 1 . 2 wk inj f/u- pt wants to do meds. * Medical History: Objective: * Vitals: Assessment: Plan: * Treatment: * Billing Information: * Visit Code: * Procedure Codes: * Electronic signature of Twan Castillo MD on 06/04/2025 at 03:55 PM CDT Sign off status: Pending * Provider: Hay aCstillo MD Date: 03/12/2025 Generated for Junior modi/Inna/Mustapha on: 0 06/04/2025 03:55 PM CDT
--- OUTSIDE RECORDS SUMMARY | 2025-05-28 06:30 | XMS_ITS ---
Author Organization [facility] Address [address] [facility] [address] [place] [address] Care Team Providers Care Employee Training Specialist Name Role Phone Mary Grace SOMMERS, Kevin Unavailable Unavailable Twan Castillo Unavailable [phone] Allergies Allergen (clinical drug ingredient) Drug/Non Drug Allergy documented on EMR Reaction Allergy Type Onset Date Status Sudafed Other Drug Allergy Active REASON FOR VISIT review neuro notes; meds Medications Medication SIG (Take, Route, Frequency, Duration) Notes Start Date End Date Status Narcan 4 MG/0.1ML as directed Nasally; Duration: 1 days 11/27/2024 Active Pregabalin 100 MG 1 capsule Orally three times a day; Duration: 30 days 03/26/2025 Active Pregabalin 50 MG 1 capsule Orally twice a day; Duration: 30 days 04/30/2025 Active Albuterol Sulfate HFA 108 (90 Base) MCG/ACT Inhalation; Duration: 25 Days Active HYDROcodone-Acetamino phen 7.5-325 MG 1 tablet Orally every 6 hrs; Duration: 30 days do not fill until 04/30/25 04/30/2025 Active Vital Signs Blood pressure systolic 138 mm Hg 05/28/20 25 Blood pressure diastolic 82 mm Hg 025 Heart Rate 76 /min 05/28/2025 Height 6ft in 05/28/2025 Weight 180 lbs 05/28/2025 BMI 24.41 kg/m2 05/28/2025 Height-cm 182.88 cm 05/28/2025 Weight-kg 81.65 kg 05/28/2025 Encounters Encounter Location Date Provider Diagnosis [facility] [address] [facility] [address] [place] [address] 05/28/2025 Twan Castillo Low back pain M54.50 ; Post laminectomy syndrome M96.1 ; Sacroiliitis M46.1 ; Cervicalgia M54.2 ; Cervical spondylosis M47.812 ; Cervical radiculopathy M54.12 and Lumbar radiculopathy M54.16 Assessments Encounter Date Diagnosis (ICD Code) Assessment Notes Treatment Notes Treatment Clinical Notes Section Notes 05/28/2025 Low back pain (ICD-10 - M54.50) Medication refilled without change, we will follow the neurosurgical recommendation and plan 05/28/2025 Post laminectomy syndrome (ICD-10 - M96.1) Medication refilled without change, we will follow the neurosurgical recommendation and plan 05/28/2025 Sacroiliitis (ICD-10 - M46.1) Medication refilled without change, we will follow the neurosurgical recommendation and plan 05/28/2025 Cervicalgia (ICD-10 - M54.2) Medication refilled without change, we will follow the neurosurgical recommendation and plan 05/28/2025 Cervical spondylosis (ICD-10 - M47.812) Medication refilled without change, we will follow the neurosurgical recommendation and plan 05/28/2025 Cervical radiculopathy (ICD-10 - M54.12) Medication refilled without change, we will follow the neurosurgical recommendation and plan 05/28/2025 Lumbar radiculopathy (ICD-10 - M54.16) Medication refilled without change, we will follow the neurosurgical recommendation and plan 05/28/2025 Other Learning About How to Have a Healthy Back material was published Medication refilled without change, we will follow the neurosurgical recommendation and plan Plan Of Treatment Treatment Notes Assessment Notes Other Learning About How t o Have a Healthy Back material was published Next Appt Details Provider Name:Twan Castillo, 09/2024 09:30:00 AM, [address] [place] [address], [address], [place], [address], Progress Notes * Tramaine MARIN LDOB:1970 (54 yo M)Acc No.[id number]:05/28/2025 Progress Notes Patient: Tramaine REINA Provider: Hay Castillo MD :1970 A ge:54 Y S ex:Male Date:05/28/2025 Address:[address] [place], [place] [address] Subjective: * Chief Complaints: * 1 . Review neuro notes; meds. * HPI: * Established Patient: Patient returns for medication refill and discussing further treatment plan, patient h as lumbar post-laminectomy syndrome which causing the unrelenting low back pain shooting down into legs, patient has had neurosurgical evaluation at Dr. Arun ponce in [place], lumbar spine CT scan and x-ray has been ordered and scheduled the this Monday, patient will be r e-evaluated by neurosurgical service after imaging completed to clarify the neurosurgical treatment plan The patient medication is reviewed. Patient is taking Shelby 10 mg 4 times a day and the Lyrica No change in efficacy or side effect of the medication. patient is tolerating activities of daily living with the use of the medications. Patient has no aberrant substance related behavior patterns. Risks stratification form completed. The patient will be tested based on risk stratification. Most recent UDS result/ WINDER CONTORT OPERATOR reviewed. Established Patient Questionnaire: 1 . Are you currently taking a Blood Thinner Medication? N o 2 . Do you have an allergy to I.V. Contrast or Shellfish? N o 3 . List any changes to medical history. (eg; Falls, Test, Scans, Blood Work, and Hospitalizations) N one 6 . What is your Pain Level today? (1-10, Scroll and select one) 9 7 . Where is your pain located? R ight Hand,Mid Back,Low Back,Left Leg,Left Foot 8 . After your last visit, what Percentage of improvement did you experience? 3 0 9 . Are you doing Physical Therapy, Chiropractic, or Massage Therapy? N o 1 0. Are you doing an at home Exercise Program? Y es 1 1. What activities or positions increase your Pain? (Scroll to select one or multiple) S tanding,Walking,Chores,Exercise 1 2. What activities or positions decrease your Pain? (Scroll to select one or multiple) L mere down 1 3. How would you describe your Pain? (Scroll to select one or multiple) S tabbing,Aching,Throbbing,Burning,Numbness 1 4. Are you having difficulty sleeping? Y es 1 5. When was the last time you had your blood drawn? (Please enter your best estimate) A ugust 2024 1 6. When was your last Mammogram? (Please put N/A if you are male, for Females please put the best Estimate or Never.) n a 1 7. When was your last Colonoscopy? (Please put the best Estimate or Never.) 0 [id number] 1 8. Do you need any refills on your medications today? Y es 1 9. Any changes to your medications or allergies since your last visit? Y es 1 9. Please list the changes to your medications and/or allergies. S ulfa 2 0. Are you Diabetic? N o 2 1. Do you suffer from Constipation? N o * ROS: G eneral/Constitutional: Denies Change appetite. Denies Chills. Denies Fatigue. Denies Fever. Denies Lightheadedness. ENT: Denies Tinnitus. Denies Dysphagia. Ophthalmologic: Denies Blurred vision. * Medical History: C OPD, Kidney stones, Alcoholism- recovery, Depression and anxiety. * Surgical History: A CDF 2020, lumbar decompression/laminectomy surgery at L4-5 level 2020, status post left L4-5 microdiskectomy 06/11/2021 , status post C5-6 ACDF/fusion 08/11/2023, status post L3-5 decompression with posterior instrumentation on 08/13/2024, and incision and drainage of lumbar wound on . * Hospitalization/Major Diagno stic Procedure: n o hospitalization since last visit . * Family History: F ather: , thyroid cancer. M other: alive. * Social History: * Established Patient: S moking D o you smoke? Y es H ow many packs per day? 1 S sherron when have you smoked? 0 12/12/1988 P daja is a smoker, working on quitting. Down to half a pack per day. * Medications: T aking HYDROcodone-Acetaminophen 7.5-325 MG Tablet 1 tablet Orally every 6 hrs , Notes to Pharmacist: do not fill until 04/30/25, Taking Pregabalin 50 MG Capsule 1 capsule Orally twice a day , Taking Albuterol Sulfate HFA 108 (90 Base) MCG/ACT Aerosol Solution Inhalation , Taking Narcan 4 MG/0.1ML Liquid as directed Nasally , Taking Pregabalin 100 MG Capsule 1 capsule Orally three times a day , Medication List reviewed and reconciled with the patient * Allergies: S udafed: Other. Objective: * Vitals: H t: 6ft, Wt:180lbs, BP:138/82mm Hg, Pain scale:81-10, HR:76/min, BMI:24.41Index, Ht-cm: 182.88 cm, Wt-k.65 kg, Body Surface Area: 2.03. * Examination: G eneral Examination: P atient is alert and oriented to time, place, [...] the headache, cervical facet loading test positive bilaterally, Spurling test equivocal on both sides. Limited range motion of lumbar spine flexion/extension/side [...] 6 . C ervical radiculopathy - M54.12 7 . L umbar radiculopathy - M54.16 M edication refilled without change, we will follow the neurosurgical? recommendation and plan Plan: * Treatment: * Billing Information: * Visit Code: 37089 Office Visit, Est Pt., Level 3. * Procedure Codes: * Electronic signature of Twan Castillo MD on 06/04/2025 at 03:54 PM CDT Sign off status: Pending * Provider: Hay Castillo MD Date: 0 05/28/2025 Generated for Junior modi/Inna/Barbaraitting on: 0 06/04/2025 03:54 PM CDT History and Physical Notes * HPI (History of Present Illness) Category Sub-Category Detail Notes Category Not es *Established Patient Established Patient Questionnaire: 1. Are you currently taking a Blood Thinner Medication?: No 2. Do you have an allergy to I.V. Contra st or Shellfish?: No 3. List any changes to medic al history. (eg; Falls, Test, Scans, Blood Work, and Hospitalizations): None 6. What is your Pain Level today? (1-10, Scroll and select one): 9 7. Where is your pain locate d?: Right Hand,Mid Back,Low Back,Left Leg,Left Foot 8. After your last visit, wh at Percentage of improvement did you experience?: 30 9. Are you doing Physical Th erapy, Chiropractic, or Massage Therapy?: No 10. Are you doing an at home Exercise Pr ogram?: Yes 11. What activities or posit ions increase your Pain? (Scroll to select one or multiple): Standing,Walking,Chores,Exercise 12. What activities or posit ions decrease your Pain? (Scroll to select one or multiple): Lying down 13. How would you describe y our Pain? (Scroll to select one or multiple): Stabbing,Aching,Throbbing,Burning,Numbness 14. Are you having difficulty sleeping?: Yes 15. When was the last time y ou had your blood drawn? (Please enter your best estimate): May 09 2025 16. When was your last Mammo gram? (Please put N/A if you are male, for Females please put the best Estimate or Never.): na 17. When was your last Colon oscopy? (Please put the best Estimate or Never.): [id number] 18. Do you need any refills on your medi cations today?: Yes 19. Any changes to your medi cations or allergies since your last visit?: Yes 19. Please list the changes to your medications and/or allergies.: Sulfa 20. Are you Diabetic?: No 21. Do [...] the headache, cervical facet loading test positive bilaterally, Spurling test equivocal on both sides. Limited range motion of lumbar spine flexion/extension/side bending, lumbar facet loading test positive bilaterally, straight leg raising test positive on the left side.
--- NOTE | ~2025-06-04 | XR_ITS ---
XR lumbar spine min 4V 06/04/2025 16:14 Indication: L-spine fusion Procedure: 7 views lumbar spine Comparison: Comparison to multiple prior studies sequentially, with oldest reviewed study dated 10/21/2024. Findings: Stable postoperative fusion at L3-L5. There is a fusion cage at L3-4. No acute fracture or traumatic malalignment. There is disc narrowing at L1-2 and T12-L1. There is mild dextrocurvature of the lumbar spine. Hardware appears to be intact. There are are bilateral renal stones. Impression: 1: No acute abnormality of the lumbar spine. Stable postoperative change of L3-L5. Reviewed, dictated and finalized at location O. Impression: 1: No acute abnormality of the lumbar spine. Stable postoperative change of L3- L5.
--- NOTE | ~2025-06-04 | CT_ITS ---
EXAMINATION: CT lumbar spine wo con COMPARISON: None HISTORY: LSPINE Fusion 08/14/24 - staff infection after TECHNIQUE: Axial images were obtained through the spine without IV contrast. Coronal, sagittal reconstruction images were obtained from the axial views. CT scan performed using dose optimization techniques including the following automated exposure control; adjustment of mA and/or kV; use of iterative reconstruction technique. Automatic exposure control was used to reduce radiation dose. Permanent radiation dose record is archived to PACS. FINDINGS: There is grade 1 retrolisthesis of L2 on L3. Bilateral pedicle screws and rods fixate L5, L4 and L3, the hardware is intact with no lucency around the screws, there is a disc prosthesis at L3-4 with partial bony fusion noted of the L4-5 disc space. Moderate loss of disc at L1-2, L2-3 and L5-S1 with circumferential bulging of the disc and facet hypertrophy producing moderate canal and foraminal stenosis. The soft tissues demonstrate bilateral renal calculi the largest left kidney 4 mm. Within the soft tissues the prostate appears enlarged, correlate with PSA. Impression: Postsurgical and degenerative changes detailed above Reviewed, dictated and finalized at location A. Impression: Postsurgical and degenerative changes detailed above
--- OUTSIDE RECORDS SUMMARY | 2025-06-04 15:54 | XMS_ITS | Clinical Summary ---
Author Organization [facility] [place] Address [address] [place] [address] Care Team Providers Care Surgical Territory Manager Name Role Phone Elton De La Fuente MD Primary Care Provider [phone] Allergies Active Allergy Reactions Criticality Noted Date [...] oz pur e alcohol) Recovering alcoholic-whiskey [facility] Utilities Answer Date Recorded In the past 12 months has [employer], gas, oil, or water [employer] threatened to shut off services in your [...] often do you attend chur ch or taoism services? Never 09/19/2024 Do you belong to any clubs o r organizations such as religious groups, unions, fraternal or athletic groups, or [...] any time in the past [address] [facility], were you homeless or living in a group home (including now)? No 09/19/2024 Personal Safety Answer Date Recorded Have you ever been in or are you currently in a harmful physical or emotional relationship or is someone making you feel afraid or unsafe? 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 file Not on file Not on file Obstetrics History Last Filed Vital Signs Vital Sign Reading Time Taken Comments Blood Pressure 173/100 10/17/2024 9:20 AM DIRECTOR OF MANUFACTURING OPERATIONS Pulse 69 10/17/2024 9:20 AM DIRECTOR OF MANUFACTURING OPERATIONS Temperature 37.3 C (99.1 F) 10/17/2024 8:45 AM DIRECTOR OF MANUFACTURING OPERATIONS Respiratory Rate 16 10/17/2024 9:20 AM DIRECTOR OF MANUFACTURING OPERATIONS Oxygen Saturation 95% 10/17/2024 9:20 AM DIRECTOR OF MANUFACTURING OPERATIONS Inhaled Oxygen Concentration - - Weight 87.1 kg (192 lb) 10/17/2024 8:45 AM DIRECTOR OF MANUFACTURING OPERATIONS Height 182.9 cm (6') 10/17/2024 8:45 AM DIRECTOR OF MANUFACTURING OPERATIONS Body Mass Index 26.04 10/17/2024 8:45 AM DIRECTOR OF MANUFACTURING OPERATIONS Plan of Treatment Health Maintenance Due Date [...] 2025 09/21/2024 Medical Devices Implanted Type Area Scrap Dealer Device Identifier Shelf Expiration Date Model / Serial / Lot Biocomposites Stimulan Rapid Cure Kit Paste Detention Officer 5cc 12.5cc Bone Void 620-005 - [id number] Implanted:Qty: 1 on 08/13/2024 by Kevin Brody MD at [facility] N/A: Spine Lumbar Biocomposites [id number] 04/24/2027 620-005 / / [id number] [employer] Cage Spinal Lumbar 10 Degree Tlif Expandable 7-11.5mm Titanium [id number] - [id number] Implanted:Qty: 2 on 08/13/2024 by Kevin Brody MD at [facility] N/A: Spine Lumbar [employer] 360-S0923 10 / / Amina Spine 4.5mm 35mm Polyaxial Spine Screw Bone Deformity [id number] - [id number] Implanted:Qty: 6 on 08/13/2024 by Kevin Brody MD at [facility] N/A: Spine Lumbar Amina Spine [id number] 5 / / Amina Spine 4.5mm 75mm Contour Ulises Spinal Cocr [id number] - [id number] Implanted:Qty: 2 on 08/13/2024 by Kevin Brody MD at [facility] N/A: Spine Lumbar [place] Spine [id number] 5 / / Amina Spine 26mm Semiadjustable Transverse Spine Connector Ulises Posterior [id number] - [id number] Implanted:Qty: 1 on 08/13/2024 by Kevin Brody MD at [facility] N/A: Spine Lumbar Amina Spine [id number] 6A / / Amina Spine 32mm Semiadjustable Transverse Spine Connector Ulises Posterior 3001-35737m - [id number] Implanted:Qty: 1 on 08/13/2024 by Kevin Brody MD at [facility] N/A: Spine Lumbar Amina Spine [id number] 2A / / Insurance [facility] H[facility]/PPO Address: [facility] [id number] [place] [id number] [place] Advance Directives For more information, please contact: [phone] * Full Code (Latest Code Status on File) Date Activated Date Inactivated Comments 09/19/2024 12:47 PM 10/05/2024 3:11 PM * Full Code Date Activated Date Inactivated Comments 09/18/2024 8:09 PM 09/19/2024 12:47 PM * Full Code Date Activated Date Inactivated Comments 08/13/2024 2:58 PM 08/14/2024 4:58 PM Care Teams Surgical Territory Manager Relationship Specialty Start Date End Date Elton De La Fuente MD PCP - General Family Medicine 06/02/21
--- OUTSIDE RECORDS SUMMARY | 2025-06-04 15:55 | XMS_ITS | Patient Health Record ---
Author Organization [facility] Address [address] [address] [place] [address] Care Team Providers Care Java Xml Developer Name Role Phone Mary Grace SOMMERS, Kevin Unavailable Unavailable Sue Davis Unavailable [phone] Twan Castillo Unavailable [phone] Bailey Vo PA-C Unavailable Chemo Davis Unavailable [phone] Allergies Allergen (clinical drug ingredient) Drug/Non Drug Allergy documented on EMR Reaction Allergy Type Onset Date Status Sudafed Other Drug Allergy Active Results Component Value Reference Range Notes Leart[employer]e Boutique Profil e Reviewed date:04/02/2025 09:32:44 AM Interpretation: Performing Lab:[facility] (CLIA#: [id number]), [address] [place] [address], Director - Inna Pemberton Notes/Report: These tests were developed and their performance characteristics determined by [facility]. They have not been cleared or approved by the US Food and Drug Administration. Certifying Wood Drill Operator: Basia Smith (Remote [id number]) Analyzed at [facility] (CLIA#: [id number]) - [address] [place] [address] - Marine Propulsion Technician: Inna Harris Hydrocodone Ur CMP >63852 >=100 ng/mL COMPLIANT : Test result is consistent and expected with prescribed drug. Pregabalin Ur CMP 33 >=5 mcg/mL COMPLIANT: Test result is consistent and expected with prescribed drug. BioDetect EXPECTED Test result is consistent with routinely analyzed human urine. 6MAM Ur Ql Cfm <10 >=10 ng/mL NONE DETECTED Amphetamines Ur Ql Cfm <100 >=100 ng/mL NONE DETECTED Benzodiaz Ur Ql Cfm <25 >=25 ng/mL NONE DET ECTED Buprenorphine Ur Ql [...] Ur Ql Cfm >=100 >=100 ng/mL POSITIVE Hydromorphone Ur Cfm-mCnc 2672 >=100 ng/mL PO SITIVE DHC Ur Cfm-mCnc 1121 >=100 ng/mL POSITIVE Norhydrocodone Ur Cfm-mCnc >5000 >=100 ng/mL P OSITIVE Hydrocodone Ur Cfm-mCnc >96730 >=100 ng/mL POSI TIVE Pregabalin(Lyrica) Ur Ql Cfm >=5 >=5 mcg/mL POSITIVE Pregabalin Ur Cfm-mCnc 33 >=5 mcg/mL POSIT ROYAL Tramadol Ur Ql Cfm <100 >=100 ng/mL NONE DETE CTED Creat Ur-mCnc 212.3 20 - 370 mg/dL NORMAL Creatinine and pH are performed for specimen validity and not diagnostic purposes. pH Ur 5.63 4.5 - 9.0 Creatinine and pH are performed for specimen validity and not diagnostic purposes. NORMAL Alcohol Metabolites Ur Ql Cfm <200 >=200 ng/mL NONE DETECTED Ethyl sulfate Ur Cfm-mCnc <200 >=200 ng/mL NO NE DETECTED Synthetic Stimulants Ur Ql Cfm <1 >=1 ng/mL NONE DETECTED COVERING MACHINE TENDER Not Otherwise Specified Ur Ql Cfm <1 >=1 ng/mL NONE DETECTED Synthetic Cannabinoids Ur Ql Cfm <1 >=1 ng/m L NONE DETECTED Hallucinogens/Dissociatives Ur Ql Cfm <1 >=1 ng/mL NONE DETECTED Embossing Machine Operator Benzodiazepines Ur Ql Cfm <1 >=1 ng/mL NONE DETECTED Embossing Machine Operator Opioids Ur Ql Cfm <1 >=1 ng/mL N ONE DETECTED THC Ur Ql Scn <20 >=20 ng/mL NONE DETECTED MR Lumbar WO/W Reviewed date:02/16/2025 09:29:29 AM Interpretation: Performing Lab: Notes/Report: Original Report MRI LUMBAR SPINE WITH AND WITHOUT CONTRAST COMPARISON: 03/03/2024 HISTORY: Low back pain. Previous spinal fusion. TECHNIQUE: MR imaging was performed of the lumbar spine prior to and after intravenous gadolinium administration in the 0.6 T MRI. CONTRAST: 10 cc Dotarem. FINDINGS: Since the previous exam there has been fusion from L3 to L5 with bilateral pedicle screws and posterior vertically oriented rods which create artifact. There is also been a posterior decompression at L3-4 and L4-5. Disc prosthesis at L3-4 evident. Marrow signal appears appropriate. No acute fracture or subluxation. Conus terminates at T12. There is some motion artifact which degrades the images. Distal cord signal appears normal. Paraspinous soft tissues are unremarkable. T12-L1: Minimal posterior disc bulge similar to previous. No canal or foraminal encroachment. Mild facet hypertrophy evident. L1-L2: Moderate disc space narrowing and marginal osteophyte formation. There is a broad-based generalized posterior disc bulge with focal central focus of increased T2 signal compatible with an annular fissure. This results in moderate spinal stenosis. Midline sagittal canal diameter at the level of the disc measures approximately 8 mm. Moderate facet degenerative change and ligamentum flavum thickening evident. Disc osteophyte complex results in mild bilateral inferior foraminal encroachment. L2-L3: Mild to moderate disc space narrowing and moderate generalized posterior disc bulge. Facet hypertrophy, ligamentum flavum thickening and posterior disc bulge result in moderate to severe spinal stenosis. This appears to have worsened since the previous exam. Midline sagittal canal diameter at the level of the disc measures approximately 5 mm. Disc osteophyte complex and facet osteophytes result in severe left and moderate right foraminal narrowing which appears similar to previous. L3-L4: Posterior decompression evident. Neural foramina are obscured by metal hardware. No spinal stenosis. Canal appears to be widely patent. L4-L5: Posterior decompression evident. No canal narrowing. Neural foramen are obscured by hardware artifact. L5-S1: Unremarkable No significant abnormal enhancement. IMPRESSION: Interval posterior decompression and posterior instrumentation from L3 to L5. Progression of spinal stenosis at L2-3 which is increased from previous with left greater than right foraminal narrowing which is similar. L1-L2 degenerative changes similar to previous. . Read by: NAZIA PAUL MD Reviewed and Electronically Signed by: NAZIA PAUL MD Le[employer] Profil e Reviewed date:02/02/2025 09:22:13 AM Interpretation: Performing Lab:[facility] (CLIA#: [id number]), [address] [place] [address], Director - Inna Pemberton Notes/Report: These tests were developed and their performance characteristics determined by [facility]. They have not been cleared or approved by the [place] Food and Drug Administration. Certifying Wood Drill Operator: Moshe Falk (Remote [id number]) Analyzed at [facility] (CLIA#: [id number]) - [address] [place] [address] - Marine Propulsion Technician: Inna Harris Tizanidine Ur CMP <5 >=5 ng/mL NON-COMPLI ANT: Test result indicates patient may not be taking drug prescribed. Pregabalin Ur CMP <5 >=5 mcg/mL NON-COMPLI ANT: Test result indicates patient may not be taking drug prescribed. Hydrocodone Ur CMP 5174 >=100 ng/mL COMPLIANT : Test result is consistent and expected with prescribed drug. Oxycodone Ur CMP 2234 >=100 ng/mL PRESENT: A prescription drug, not [...] >=100 >=100 ng/mL POSITIVE Oxymorphone Ur Cfm-mCnc 425 >=100 ng/mL POSI TIVE Hydromorphone Ur Cfm-mCnc 572 >=100 ng/mL PO SITIVE DHC Ur Cfm-mCnc 343 >=100 ng/mL POSITIVE Noroxycodone Ur Cfm-mCnc 1037 >=100 ng/mL POS ITIVE Oxycodone Ur Cfm-mCnc 771 >=100 ng/mL POSITI VE Norhydrocodone Ur Cfm-mCnc 3124 >=100 ng/mL P OSITIVE Hydrocodone Ur Cfm-mCnc 1134 >=100 ng/mL POSI TIVE Pregabalin(Lyrica) Ur Ql Cfm <5 >=5 mcg/mL NONE DETECTED Tramadol Ur Ql Cfm <100 >=100 ng/mL NONE DETE CTED Creat Ur-mCnc 121.1 20 - 370 mg/dL NORMAL Creatinine and pH are performed for specimen validity and not diagnostic purposes. pH Ur 7.32 4.5 - 9.0 NORMAL Creatinine and pH are performed for specimen validity and not diagnostic purposes. Alcohol Metabolites Ur Ql Cfm <200 >=200 ng/mL NONE DETECTED Ethyl sulfate Ur Cfm-mCnc <200 >=200 ng/mL NO NE DETECTED Tizanidine Ur Ql Cfm <25 >=25 ng/mL NONE DE TECTED Synthetic Stimulants Ur Ql Cfm <1 >=1 ng/mL NONE DETECTED COVERING MACHINE TENDER Not Otherwise Specified Ur Ql Cfm <1 >=1 ng/mL NONE DETECTED Synthetic Cannabinoids Ur Ql Cfm <1 >=1 ng/m L NONE DETECTED Hallucinogens/Dissociatives Ur Ql Cfm <1 >=1 ng/mL NONE DETECTED Embossing Machine Operator Benzodiazepines Ur Ql Cfm <1 >=1 ng/mL NONE DETECTED Embossing Machine Operator Opioids Ur Ql Cfm <1 >=1 ng/mL N ONE DETECTED THC Ur Ql Scn <20 >=20 ng/mL NONE DETECTED Leartieste Boutique Profil e Reviewed date:12/03/2024 02:55:01 PM Interpretation: Performing Lab:[facility] (CLIA#: [id number]), [address] [place] [address], Director - Inna Pemberton Notes/Report: These tests were developed and their performance characteristics determined by [facility]. They have not been cleared or approved by the US Food and Drug Administration. Certifying Wood Drill Operator: Ann Maggy (Remote [id number]) Analyzed at [facility] (CLIA#: [id number]) - [address] [place] [address] - Marine Propulsion Technician: Inna Harris Tizanidine Ur CMP <5 >=5 ng/mL PRN [...] Ql Cfm <1 >=1 ng/mL NONE DETECTED COVERING MACHINE TENDER Not Otherwise Specified Ur Ql Cfm <1 >=1 ng/mL NONE DETECTED Synthetic Cannabinoids Ur Ql Cfm <1 >=1 ng/m L NONE DETECTED Hallucinogens/Dissociatives Ur Ql Cfm <1 >=1 ng/mL NONE DETECTED Embossing Machine Operator Benzodiazepines Ur Ql Cfm <1 >=1 ng/mL NONE DETECTED Embossing Machine Operator Opioids Ur Ql Cfm <1 >=1 ng/mL N ONE DETECTED THC Ur Ql Scn <20 >=20 ng/mL NONE DETECTED Reason For Referral No Information Medications Medication SIG (Take, Route, Frequency, Duration) Notes Start Date End Date Status HYDROcodone-Acetamino phen 7.5-325 MG 1 tablet Orally every 6 hrs; Duration: 30 days do not fill until 05/30/25 05/28/2025 Active Pregabalin 50 MG 1 capsule Orally twice a day; Duration: 30 days 05/28/2025 Active Narcan 4 MG/0.1ML as directed Nasally; Duration: 1 days 11/27/2024 Active Pregabalin 100 MG 1 capsule Orally three times a day; Duration: 30 days 03/26/2025 Active Albuterol Sulfate HFA 108 (90 Base) MCG/ACT Inhalation; Duration: 25 Days Active Problems Problem Type SNOMED Code ICD Code Onset Dates Problem Status W/U Status Risk Notes Problem Cervicalgia (69868763) Cervicalgia (M54.2) Active confirmed Problem Cervical spondylosis (534104341) Cervical spondylosis (M47.812) Active confirmed Problem Lumbar radiculopathy (746292527) Lumbar radiculopathy (M54.16) Active confirmed Problem Sacroiliitis (69400672) Sacroiliitis (M46.1) Active confirmed Problem Cervical radiculopathy (59303987) Cervical radiculopathy (M54.12) Active confirmed Problem Post-laminectomy syndrome (80693961) Post laminectomy syndrome (M96.1) Active confirmed Problem Low back pain (942454659) Low back pain (M54.50) Active confirmed Vital Signs Heart Rate 76 /min 05/28/2025 Height-cm 182.88 cm 05/28/2025 Blood pressure diastolic 82 mm Hg 05/28/2025 Weight-kg 81.65 kg 05/28/2025 Height 6ft in 05/28/2025 Blood pressure systolic 138 mm Hg 05/28/2025 Weight 180 lbs 05/28/2025 BMI 24.41 kg/m2 05/28/2025 Encounters Encounter Location Date Provider Diagnosis [facility] [address] [place] [address] 05/28/2025 Twan Castillo Low back pain M54.50 ; Post laminectomy syndrome M96.1 ; Sacroiliitis M46.1 ; Cervicalgia M54.2 ; Cervical spondylosis M47.812 ; Cervical radiculopathy M54.12 and Lumbar radiculopathy M54.16 [facility] [address] [place] [address] 08/05/2024 Baileydonato Abreutalbrenda Low back pain M54.50 ; Post laminectomy syndrome M96.1 ; Sacroiliitis M46.1 ; Cervicalgia M54.2 ; Cervical spondylosis M47.812 and Cervical radiculopathy M54.12 [facility] [address] [place] [address] 11/27/2024 Twan Castillo Low back pain M54.50 ; Post laminectomy syndrome M96.1 ; Sacroiliitis M46.1 ; Cervicalgia M54.2 ; Cervical spondylosis M47.812 and Cervical radiculopathy M54.12 [facility] [address] [place] [address], [place] [address] 01/01/2025 Twan Castillo Low back pain M54.50 ; Post laminectomy syndrome M96.1 ; Sacroiliitis M46.1 ; Cervicalgia M54.2 ; Cervical spondylosis M47.812 and Cervical radiculopathy M54.12 [facility] [address] [place] [address] [address] [place] [address] 01/29/2025 Twan Castillo Low back pain M54.50 ; Post laminectomy syndrome M96.1 ; Sacroiliitis M46.1 ; Cervicalgia M54.2 ; Cervical spondylosis M47.812 and Cervical radiculopathy M54.12 [facility] [address] [place] [address] [address] [place] [address] 02/26/2025 Twan Castillo Low back pain M54.50 ; Post laminectomy syndrome M96.1 ; Other fdc (current) drug therapy Z79.899 ; Sacroiliitis M46.1 ; Cervicalgia M54.2 ; Cervical spondylosis M47.812 ; Cervical radiculopathy M54.12 and Lumbar radiculopathy M54.16 [facility] [address] [place] [address] [address] [place] [address] 02/26/2025 Twan Castillo Post laminectomy syndrome M96.1 and Lumbar radiculopathy M54.16 [facility] [address] [place] [address] [address] [place] [address] 03/26/2025 Twan Castillo Low back pain M54.50 ; Post laminectomy syndrome M96.1 ; Sacroiliitis M46.1 ; Cervicalgia M54.2 ; Cervical spondylosis M47.812 ; Cervical radiculopathy M54.12 ; Lumbar radiculopathy M54.16 and On fdc drug therapy Z79.899 [facility] [address] [place] [address] [address] [place] [address] 04/30/2025 Twan Castillo Low back pain M54.50 ; Post laminectomy syndrome M96.1 ; Sacroiliitis M46.1 ; Cervicalgia M54.2 ; Cervical spondylosis M47.812 ; Cervical radiculopathy M54.12 and Lumbar radiculopathy M54.16 [facility] [address] [place] [address] 06/27/2024 Twan Castlilo [facility] [address] [place] [address] 08/05/2024 Sue [facility] [address] [place] [address] 11/27/2024 Twan Castillo [facility] [address] [place] [address] 01/01/2025 Twan Castillo [facility] [address] [place] [address] 01/22/2025 [facility] [address] [place] [address] 01/29/2025 Twan Castillo [facility] [address] [place] [address] 01/30/2025 [facility] [address] [place] [address] 02/26/2025 Twan Castillo [facility] [address] [place] [address] 03/26/2025 Twan Castillo [facility] [address] [place] [address] 04/30/2025 Twan Castillo [facility] [address] [place] [address] 04/30/2025 Twan Castillo [facility] [address] [place] [address] 05/28/2025 Twan Castillo Assessments Encounter Date Diagnosis (ICD Code) Assessment Notes Treatment Notes Treatment Clinical Notes Section Notes 08/05/2024 Low back pain (ICD-10 - M54.50) [...] dysfunction, patient would like to back to [place] as we gave to him previously , patient denies illicit drug use, patient wants to resume pregabalin and continue Robaxin. -OPIOID USAGE EVALUATION: Opioid risk: Denies ETOH or Drug abuse history. Analgesia effect: pain meds allowed patient to: standing /walking/ moving around Activity: independent ADL Adverse event: none Aberrant behavior: none reported UDS: Random urine testing based on risk stratification. 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[employer] MEDICINE reviewed which is appropriate 11/27/24 Greater and lesser occipital block has been ordered for the occipital headache [place] 7.5 mg q.6 hours as needed, 120 tablets for 30 day supply given no refills Pregabalin 50 mg t.i.d., 90 tablets for 30 day supply given Narcan spray given using as needed for narcotic overdose rescue 01/01/2025 Low back pain (ICD-10 - M54.50) C-spine MRI study 12/03/24 has been reviewed, no hardware failure fusion with hardware intact, small disc bulging with annular tear at the C6-7 with mild central canal stenosis, no acute abnormality imaging study has been reviewed and updated with the patient , and all the questions have been answered with satisfaction Medication refilled without change We will follow-up Dr. Brody recommendation, if no surgical treatment on the neck recommended, we will consider cervical epidural steroid injection at C6-7 versus C7-T1 We discussed the advanced imaging study on lumbar spine but will defer after he seen by Dr Brody 01/29/2025 Low back pain (ICD-10 - M54.50) imaging study has been reviewed and updated with the patient , and all the questions have been answered with satisfaction lumbar spine MRI study with and without contrast for lumbar radiculopathy/post- laminectomy syndrome has been ordered, UDS results has been confronted with the patient, and the medication compliance has been reinforced, patient verbalized understanding, UDS at next visit Refill [place] without change, 1 month supply given Increase Lyrica to 50 mg 2 tablets t.i.d., start night with slowly titrated up, side effects including drowsiness and body weight gain has been discussed with the patient and he verbalized understanding, 1 month supply given Continue follow-up with ID and completed full course cause off antibiotics, patient understands he needs clearance with ID for future interventional treatment versus revision surgery on the neck or the low back. Patient understands he has to wait over 1 year until the August 2025 if he is seeking surgical re-evaluation by different providers since Dr. Brody retired, we also talked about interventional pain on the neck pain shooting down into the left arm and fingers, epidural injection has been discussed with the patient. 02/26/2025 Post laminectomy syndrome (ICD-10 - M96.1) Medication refilled without change UDS today Follow-up with Dr. Brody recommendation after re-evaluation on 03/03/2025 -There is severe pain unresponsive to at least 4 weeks of conservative medical management. (e.g., physical therapy, pharmacological therapy, exercise). -The patient has significant radicular pain, radiculopathy or neurogenic claudication with associated functional impairment, supported by physical exam and correlates with radiographic evaluation (MRI or CT). - The exam shows pain distribution along specific nerve root with corresponding sensory changes, muscle weakness, or positive nerve root irritation sign. -Clinical findings and imaging studies suggest no other obvious cause of the pain (e.g., infection, tumor, fracture) and patient has no contraindications for the procedure. -Patient will continue with active rehabilitation program, home exercise program, or functional confucianist program. -Policy guidelines regarding number and frequency of the procedure are obeyed. This patient is currently having severe, debilitating pain that necessitates urgent treatment. The patient is highly symptomatic (Tier 3a CMS guidelines). Pain symptoms are interfering with dally activity and quality of life. Treatment options are limited. This procedure was performed based on the following criteria: -The procedure is considered minimally Invasive. -The procedure requires very limited resources to perform, including limited use of any additional PPE. -the procedure will likely prevent this patient from seeking care at the hospital emergency room or other urgent care facility. This procedure is being performed due to medical necessity and to avoid further visits to the hospital or ER. This injection is being performed after evaluation and minimization of the risk involved in order to avoid unnecessary URINE DRUG SCREENING MEDICAL NECESSITY: The [place] [...] opioid and medication therapies. Discussed potential for addiction/tolerance /abuse/diversion. Discussed Opioid Agreement in detail and answered [...] coordination of care required for this visit. 02/26/2025 Low back pain (ICD-10 - M54.50) Medication refilled without change UDS today Follow-up with Dr. Brody recommendation after re-evaluation on 03/03/2025 -There is severe pain unresponsive to at least 4 weeks of conservative medical management. (e.g., physical therapy, pharmacological therapy, exercise). -The patient has significant radicular pain, radiculopathy or neurogenic claudication with associated functional impairment, supported by physical exam and correlates with radiographic evaluation (MRI or CT). - The exam shows pain distribution along specific nerve root with corresponding sensory changes, muscle weakness, or positive nerve root irritation sign. -Clinical findings and imaging studies suggest no other obvious cause of the pain (e.g., infection, tumor, fracture) and patient has no contraindications for the procedure. -Patient will continue with active rehabilitation program, home exercise program, or functional confucianist program. -Policy guidelines regarding number and frequency of the procedure are obeyed. This patient is currently having severe, debilitating pain that necessitates urgent treatment. The patient is highly symptomatic (Tier 3a CMS guidelines). Pain symptoms are interfering with dally activity and quality of life. Treatment options are limited. This procedure was performed based on the following criteria: -The procedure is considered minimally Invasive. -The procedure requires very limited resources to perform, including limited use of any additional PPE. -the procedure will likely prevent this patient from seeking care at the hospital emergency room or other urgent care facility. This procedure is being performed due to medical necessity and to avoid further visits to the hospital or ER. This injection is being performed after evaluation and minimization of the risk involved in order to avoid unnecessary URINE DRUG SCREENING MEDICAL NECESSITY: The [place] [...] opioid and medication therapies. Discussed potential for addiction/tolerance /abuse/diversion. Discussed Opioid Agreement in detail and answered [...] coordination of care required for this visit. 02/26/2025 Post laminectomy syndrome (ICD-10 - M96.1) After discussing the benefit and risk/complication including but not limited bleeding, infection, nerve damage, allergic reaction, spinal fluid leak, paralysis, and of b/l L2/3 transforaminal epidural steroid injection under fluoroscopic guidance were discussed with the patient who verbalized understanding and agrees to proceed today , the procedure was performed without any events, patient tolerated the procedure . Patient will be followed as scheduled. -There is severe pain unresponsive to at least 4 weeks of conservative medical management. (e.g., physical therapy, pharmacological therapy, exercise). -The patient has significant radicular pain, radiculopathy or neurogenic claudication with associated functional impairment, supported by physical exam and correlates with radiographic evaluation (MRI or CT). - The exam shows pain distribution along specific nerve root with corresponding sensory changes, muscle weakness, or positive nerve root irritation sign. -Clinical findings and imaging studies suggest no other obvious cause of the pain (e.g., infection, tumor, fracture) and patient has no contraindications for the procedure. -Patient will continue with active rehabilitation program, home exercise program, or functional confucianist program. -Policy guidelines regarding number and frequency of the procedure are obeyed. This patient is currently having severe, debilitating pain that necessitates urgent treatment. The patient is highly symptomatic (Tier 3a CMS guidelines). Pain symptoms are interfering with dally activity and quality of life. Treatment options are limited. This procedure was performed based on the following criteria: -The procedure is considered minimally Invasive. -The procedure requires very limited resources to perform, including limited use of any additional PPE. -the procedure will likely prevent this patient from seeking care at the hospital emergency room or other urgent care facility. This procedure is being performed due to medical necessity and to avoid further visits to the hospital or ER. This injection is being performed after evaluation and minimization of the risk involved in order to avoid unnecessary 03/26/2025 Post laminectomy syndrome (ICD-10 - M96.1) The patient medication is reviewed. No change in efficacy or side effect of the medication. patient is tolerating activities of daily living with the use of the medications. Patient has no aberrant substance related behavior patterns. Risks stratification form completed. The patient will be tested based on risk stratification. Most recent UDS result/ [employer] reviewed Random urine testing performed today. Medication refilled without change He is y taking [place] this morning, medication refilled without change, we will obtain Dr. Brody note , the patient has lumbar brace, patient has been instructed using that intermittently only when he is working , as constantly using that may increase the chance of muscle weakness and make the low back pain getting worse for long-term run patient understands I am going to refer him to neurosurgeons seeking final the treatment plan, if no surgical treatment commended in next 6 month . consider a lumbar spine spinal cord stimulator to bridging to surgery. URINE DRUG SCREENING MEDICAL NECESSITY: [place] [...] opioid and medication therapies. Discussed potential for addiction/tolerance /abuse/diversion. Discussed Opioid Agreement in detail and answered [...] coordination of care required for this visit. 03/26/2025 Low back pain (ICD-10 - M54.50) The patient medication is reviewed. No change in efficacy or side effect of the medication. patient is tolerating activities of daily living with the use of the medications. Patient has no aberrant substance related behavior patterns. Risks stratification form completed. The patient will be tested based on risk stratification. Most recent UDS result/ [employer] reviewed Random urine testing performed today. Medication refilled without change He is y taking [place] this morning, medication refilled without change, we will obtain Dr. Brody note , the patient has lumbar brace, patient has been instructed using that intermittently only when he is working , as constantly using that may increase the chance of muscle weakness and make the low back pain getting worse for long-term run patient understands I am going to refer him to neurosurgeons seeking final the treatment plan, if no surgical treatment commended in next 6 month . consider a lumbar spine spinal cord stimulator to bridging to surgery. URINE DRUG SCREENING MEDICAL NECESSITY: [place] [...] opioid and medication therapies. Discussed potential for addiction/tolerance /abuse/diversion. Discussed Opioid Agreement in detail and answered [...] coordination of care required for this visit. 04/30/2025 Low back pain (ICD-10 - M54.50) I did review Dr. 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-3 which is above the previous fusion level , patient has been referred to neurosurgeon at [place], [place] , initial visit appointment has been scheduled at the end of this month, I will send my note and follow-up the neurosurgeon recommendation, patient has been told no surgical treatment for about 1.5 years from the last surgery which was done at the end of 2023 , patient complains stiffness tightness on the upper back above the fusion level referring to the back and bilateral hip, likely from the L2-3 stenosis , patient also complains the pain shooting down into the foot and toes secondary to lumbar radiculopathy with some post-laminectomy syndrome, I think he may need either MILD decompression or the spinal cord stimulator Patient can not tolerate higher dose of Lyrica but does feel the benefit especially at night, patient is not tolerate Lyrica 100 mg b.i.d., I am going to split the daytime dose to 50 twice a day and continue taking 100 mg at night Refill [place] without change UDS reviewed which is appropriate 05/28/2025 Low back pain (ICD-10 - M54.50) Medication refil led without change, we will follow the neurosurgical recommendation and plan 04/30/2025 Post laminectomy syndrome (ICD-10 - M96.1) I did review Dr. 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-3 which is above the previous fusion level , patient has been referred to neurosurgeon at [place], [place] , initial visit appointment has been scheduled at the end of this month, I will send my note and follow-up the neurosurgeon recommendation, patient has been told no surgical treatment for about 1.5 years from the last surgery which was done at the end of 2023 , patient complains stiffness tightness on the upper back above the fusion level referring to the back and bilateral hip, likely from the L2-3 stenosis , patient also complains the pain shooting down into the foot and toes secondary to lumbar radiculopathy with some post-laminectomy syndrome, I think he may need either MILD decompression or the spinal cord stimulator Patient can not tolerate higher dose of Lyrica but does feel the benefit especially at night, patient is not tolerate Lyrica 100 mg b.i.d., I am going to split the daytime dose to 50 twice a day and continue taking 100 mg at night Refill [place] without change UDS reviewed which is appropriate 05/28/2025 Post laminectomy syndrome (ICD-10 - M96.1) Medication refil led without change, we will follow the neurosurgical recommendation and plan 03/26/2025 Sacroiliitis (ICD-10 - M46.1) The patient medication is reviewed. No change in efficacy or side effect of the medication. patient is tolerating activities of daily living with the use of the medications. Patient has no aberrant substance related behavior patterns. Risks stratification form completed. The patient will be tested based on risk stratification. Most recent UDS result/ [employer] reviewed Random urine testing performed today. Medication refilled without change He is y taking [place] this morning, medication refilled without change, we will obtain Dr. Brody note , the patient has lumbar brace, patient has been instructed using that intermittently only when he is working , as constantly using that may increase the chance of muscle weakness and make the low back pain getting worse for long-term run patient understands I am going to refer him to neurosurgeons seeking final the treatment plan, if no surgical treatment commended in next 6 month . consider a lumbar spine spinal cord stimulator to bridging to surgery. URINE DRUG SCREENING MEDICAL NECESSITY: [place] [...] opioid and medication therapies. Discussed potential for addiction/tolerance /abuse/diversion. Discussed Opioid Agreement in detail and answered [...] coordination of care required for this visit. 01/29/2025 Post laminectomy syndrome (ICD-10 - M96.1) imaging study has been reviewed and updated with the patient , and all the questions have been answered with satisfaction lumbar spine MRI study with and without contrast for lumbar radiculopathy/post- laminectomy syndrome has been ordered, UDS results has been confronted with the patient, and the medication compliance has been reinforced, patient verbalized understanding, UDS at next visit Refill [place] without change, 1 month supply given Increase Lyrica to 50 mg 2 tablets t.i.d., start night with slowly titrated up, side effects including drowsiness and body weight gain has been discussed with the patient and he verbalized understanding, 1 month supply given Continue follow-up with ID and completed full course cause off antibiotics, patient understands he needs clearance with ID for future interventional treatment versus revision surgery on the neck or the low back. Patient understands he has to wait over 1 year until the August 2025 if he is seeking surgical re-evaluation by different providers since Dr. Brody retired, we also talked about interventional pain on the neck pain shooting down into the left arm and fingers, epidural injection has been discussed with the patient. 02/26/2025 Lumbar radiculopathy (ICD-10 - M54.16) After discussing the benefit and risk/complication including but not limited bleeding, infection, nerve damage, allergic reaction, spinal fluid leak, paralysis, and of b/l L2/3 transforaminal epidural steroid injection under fluoroscopic guidance were discussed with the patient who verbalized understanding and agrees to proceed today , the procedure was performed without any events, patient tolerated the procedure . Patient will be followed as scheduled. -There is severe pain unresponsive to at least 4 weeks of conservative medical management. (e.g., physical therapy, pharmacological therapy, exercise). -The patient has significant radicular pain, radiculopathy or neurogenic claudication with associated functional impairment, supported by physical exam and correlates with radiographic evaluation (MRI or CT). - The exam shows pain distribution along specific nerve root with corresponding sensory changes, muscle weakness, or positive nerve root irritation sign. -Clinical findings and imaging studies suggest no other obvious cause of the pain (e.g., infection, tumor, fracture) and patient has no contraindications for the procedure. -Patient will continue with active rehabilitation program, home exercise program, or functional confucianist program. -Policy guidelines regarding number and frequency of the procedure are obeyed. This patient is currently having severe, debilitating pain that necessitates urgent treatment. The patient is highly symptomatic (Tier 3a CMS guidelines). Pain symptoms are interfering with dally activity and quality of life. Treatment options are limited. This procedure was performed based on the following criteria: -The procedure is considered minimally Invasive. -The procedure requires very limited resources to perform, including limited use of any additional PPE. -the procedure will likely prevent this patient from seeking care at the hospital emergency room or other urgent care facility. This procedure is being performed due to medical necessity and to avoid further visits to the hospital or ER. 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 Brody recommendation after re-evaluation on 03/03/2025 -There is severe pain unresponsive to at least 4 weeks of conservative medical management. (e.g., physical therapy, pharmacological therapy, exercise). -The patient has significant radicular pain, radiculopathy or neurogenic claudication with associated functional impairment, supported by physical exam and correlates with radiographic evaluation (MRI or CT). - The exam shows pain distribution along specific nerve root with corresponding sensory changes, muscle weakness, or positive nerve root irritation sign. -Clinical findings and imaging studies suggest no other obvious cause of the pain (e.g., infection, tumor, fracture) and patient has no contraindications for the procedure. -Patient will continue with active rehabilitation program, home exercise program, or functional confucianist program. -Policy guidelines regarding number and frequency of the procedure are obeyed. This patient is currently having severe, debilitating pain that necessitates urgent treatment. The patient is highly symptomatic (Tier 3a CMS guidelines). Pain symptoms are interfering with dally activity and quality of life. Treatment options are limited. This procedure was performed based on the following criteria: -The procedure is considered minimally Invasive. -The procedure requires very limited resources to perform, including limited use of any additional PPE. -the procedure will likely prevent this patient from seeking care at the hospital emergency room or other urgent care facility. This procedure is being performed due to medical necessity and to avoid further visits to the hospital or ER. This injection is being performed after evaluation and minimization of the risk involved in order to avoid unnecessary URINE DRUG SCREENING MEDICAL NECESSITY: [place] [...] opioid and medication therapies. Discussed potential for addiction/tolerance /abuse/diversion. Discussed Opioid Agreement in detail and answered [...] coordination of care required for this visit. 11/27/2024 Post laminectomy syndrome (ICD-10 - M96.1) [...] dysfunction, patient would like to back to [place] as we gave to him previously , patient denies illicit drug use, patient wants to resume pregabalin and continue Robaxin. -OPIOID USAGE EVALUATION: Opioid risk: Denies ETOH or Drug abuse history. Analgesia effect: pain meds allowed patient to: standing /walking/ moving around Activity: independent ADL Adverse event: none Aberrant behavior: none reported UDS: Random urine testing based on risk stratification. 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 reviewed which is appropriate 11/27/24 Greater and lesser occipital block has been ordered for the occipital headache [place] 7.5 mg q.6 hours as needed, 120 tablets for 30 day supply given no refills Pregabalin 50 mg t.i.d., 90 tablets for 30 day supply given Narcan spray given using as needed for narcotic overdose rescue 01/01/2025 Post laminectomy syndrome (ICD-10 - M96.1) C-spine MRI study 12/03/24 has been reviewed, no hardware failure fusion with hardware intact, small disc bulging with annular tear at the C6-7 with mild central canal stenosis, no acute abnormality imaging study has been reviewed and updated with the patient , and all the questions have been answered with satisfaction Medication refilled without change We will follow-up Dr. Brody recommendation, if no surgical treatment on the neck recommended, we will consider cervical epidural steroid injection at C6-7 versus C7-T1 We discussed the advanced imaging study on lumbar spine but will defer after he seen by Dr Brody 08/05/2024 Post laminectomy syndrome (ICD-10 - M96.1) [...] dysfunction, patient would like to back to [place] as we gave to him previously , patient denies illicit drug use, patient wants to resume pregabalin and continue Robaxin. -OPIOID USAGE EVALUATION: Opioid risk: Denies ETOH or Drug abuse history. Analgesia effect: pain meds allowed patient to: standing /walking/ moving around Activity: independent ADL Adverse event: none Aberrant behavior: none reported UDS: Random urine testing based on risk stratification. 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 reviewed which is appropriate 11/27/24 Greater and lesser occipital block has been ordered for the occipital headache [place] 7.5 mg q.6 hours as needed, 120 tablets for 30 day supply given no refills Pregabalin 50 mg t.i.d., 90 tablets for 30 day supply given Narcan spray given using as needed for narcotic overdose rescue 08/05/2024 Sacroiliitis (ICD-10 - M46.1) 01/01/2025 Sacroiliitis (ICD-10 - M46.1) C-spine MRI study 12/03/24 has been reviewed, no hardware failure fusion with hardware intact, small disc bulging with annular tear at the C6-7 with mild central canal stenosis, no acute abnormality imaging study has been reviewed and updated with the patient , and all the questions have been answered with satisfaction Medication refilled without change We will follow-up Dr. Brody recommendation, if no surgical treatment on the neck recommended, we will consider cervical epidural steroid injection at C6-7 versus C7-T1 We discussed the advanced imaging study on lumbar spine but will defer after he seen by Dr Brody 01/29/2025 Sacroiliitis (ICD-10 - M46.1) imaging study has been reviewed and updated with the patient , and all the questions have been answered with satisfaction lumbar spine MRI study with and without contrast for lumbar radiculopathy/post- laminectomy syndrome has been ordered, UDS results has been confronted with the patient, and the medication compliance has been reinforced, patient verbalized understanding, UDS at next visit Refill [place] without change, 1 month supply given Increase Lyrica to 50 mg 2 tablets t.i.d., start night with slowly titrated up, side effects including drowsiness and body weight gain has been discussed with the patient and he verbalized understanding, 1 month supply given Continue follow-up with ID and completed full course cause off antibiotics, patient understands he needs clearance with ID for future interventional treatment versus revision surgery on the neck or the low back. Patient understands he has to wait over 1 year until the August 2025 if he is seeking surgical re-evaluation by different providers since Dr. Brody retired, we also talked about interventional pain on the neck pain shooting down into the left arm and fingers, epidural injection has been discussed with the patient. 02/26/2025 Sacroiliitis (ICD-10 - M46.1) Medication refilled without change UDS today Follow-up with Dr. Brody recommendation after re-evaluation on 03/03/2025 -There is severe pain unresponsive to at least 4 weeks of conservative medical management. (e.g., physical therapy, pharmacological therapy, exercise). -The patient has significant radicular pain, radiculopathy or neurogenic claudication with associated functional impairment, supported by physical exam and correlates with radiographic evaluation (MRI or CT). - The exam shows pain distribution along specific nerve root with corresponding sensory changes, muscle weakness, or positive nerve root irritation sign. -Clinical findings and imaging studies suggest no other obvious cause of the pain (e.g., infection, tumor, fracture) and patient has no contraindications for the procedure. -Patient will continue with active rehabilitation program, home exercise program, or functional confucianist program. -Policy guidelines regarding number and frequency of the procedure are obeyed. This patient is currently having severe, debilitating pain that necessitates urgent treatment. The patient is highly symptomatic (Tier 3a CMS guidelines). Pain symptoms are interfering with dally activity and quality of life. Treatment options are limited. This procedure was performed based on the following criteria: -The procedure is considered minimally Invasive. -The procedure requires very limited resources to perform, including limited use of any additional PPE. -the procedure will likely prevent this patient from seeking care at the hospital emergency room or other urgent care facility. This procedure is being performed due to medical necessity and to avoid further visits to the hospital or ER. This injection is being performed after evaluation and minimization of the risk involved in order to avoid unnecessary URINE DRUG SCREENING MEDICAL NECESSITY: [place] [...] opioid and medication therapies. Discussed potential for addiction/tolerance /abuse/diversion. Discussed Opioid Agreement in detail and answered [...] coordination of care required for this visit. 03/26/2025 Cervicalgia (ICD-10 - M54.2) The patient medication is reviewed. No change in efficacy or side effect of the medication. patient is tolerating activities of daily living with the use of the medications. Patient has no aberrant substance related behavior patterns. Risks stratification form completed. The patient will be tested based on risk stratification. Most recent UDS result/ [employer] reviewed Random urine testing performed today. Medication refilled without change He is y taking [place] this morning, medication refilled without change, we will obtain Dr. Brody note , the patient has lumbar brace, patient has been instructed using that intermittently only when he is working , as constantly using that may increase the chance of muscle weakness and make the low back pain getting worse for long-term run patient understands I am going to refer him to neurosurgeons seeking final the treatment plan, if no surgical treatment commended in next 6 month . consider a lumbar spine spinal cord stimulator to bridging to surgery. URINE DRUG SCREENING MEDICAL NECESSITY: [place] [...] opioid and medication therapies. Discussed potential for addiction/tolerance /abuse/diversion. Discussed Opioid Agreement in detail and answered [...] coordination of care required for this visit. 04/30/2025 Sacroiliitis (ICD-10 - M46.1) I did review Dr. 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-3 which is above the previous fusion level , patient has been referred to neurosurgeon at [place], [place] , initial visit appointment has been scheduled at the end of this month, I will send my note and follow-up the neurosurgeon recommendation, patient has been told no surgical treatment for about 1.5 years from the last surgery which was done at the end of 2023 , patient complains stiffness tightness on the upper back above the fusion level referring to the back and bilateral hip, likely from the L2-3 stenosis , patient also complains the pain shooting down into the foot and toes secondary to lumbar radiculopathy with some post-laminectomy syndrome, I think he may need either MILD decompression or the spinal cord stimulator Patient can not tolerate higher dose of Lyrica but does feel the benefit especially at night, patient is not tolerate Lyrica 100 mg b.i.d., I am going to split the daytime dose to 50 twice a day and continue taking 100 mg at night Refill [place] without change UDS reviewed which is appropriate 05/28/2025 Sacroiliitis (ICD-10 - M46.1) Medication refi lled without change, we will follow the neurosurgical recommendation and plan 03/26/2025 Cervical spondylosis (ICD-10 - M47.812) The patient medication is reviewed. No change in efficacy or side effect of the medication. patient is tolerating activities of daily living with the use of the medications. Patient has no aberrant substance related behavior patterns. Risks stratification form completed. The patient will be tested based on risk stratification. Most recent UDS result/ [employer] reviewed Random urine testing performed today. Medication refilled without change He is y taking [place] this morning, medication refilled without change, we will obtain Dr. Brody note , the patient has lumbar brace, patient has been instructed using that intermittently only when he is working , as constantly using that may increase the chance of muscle weakness and make the low back pain getting worse for long-term run patient understands I am going to refer him to neurosurgeons seeking final the treatment plan, if no surgical treatment commended in next 6 month . consider a lumbar spine spinal cord stimulator to bridging to surgery. URINE DRUG SCREENING MEDICAL NECESSITY: [place] [...] opioid and medication therapies. Discussed potential for addiction/tolerance /abuse/diversion. Discussed Opioid Agreement in detail and answered [...] coordination of care required for this visit. 05/28/2025 Cervicalgia (ICD-10 - M54.2) Medication refi lled without change, we will follow the neurosurgical recommendation and plan 04/30/2025 Cervicalgia (ICD-10 - M54.2) I did review Dr. 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-3 which is above the previous fusion level , patient has been referred to neurosurgeon at [place], [place] , initial visit appointment has been scheduled at the end of this month, I will send my note and follow-up the neurosurgeon recommendation, patient has been told no surgical treatment for about 1.5 years from the last surgery which was done at the end of 2023 , patient complains stiffness tightness on the upper back above the fusion level referring to the back and bilateral hip, likely from the L2-3 stenosis , patient also complains the pain shooting down into the foot and toes secondary to lumbar radiculopathy with some post-laminectomy syndrome, I think he may need either MILD decompression or the spinal cord stimulator Patient can not tolerate higher dose of Lyrica but does feel the benefit especially at night, patient is not tolerate Lyrica 100 mg b.i.d., I am going to split the daytime dose to 50 twice a day and continue taking 100 mg at night Refill [place] without change UDS reviewed which is appropriate 02/26/2025 Cervicalgia (ICD-10 - M54.2) Medication refilled without change UDS today Follow-up with Dr. Brody recommendation after re-evaluation on 03/03/2025 -There is severe pain unresponsive to at least 4 weeks of conservative medical management. (e.g., physical therapy, pharmacological therapy, exercise). -The patient has significant radicular pain, radiculopathy or neurogenic claudication with associated functional impairment, supported by physical exam and correlates with radiographic evaluation (MRI or CT). - The exam shows pain distribution along specific nerve root with corresponding sensory changes, muscle weakness, or positive nerve root irritation sign. -Clinical findings and imaging studies suggest no other obvious cause of the pain (e.g., infection, tumor, fracture) and patient has no contraindications for the procedure. -Patient will continue with active rehabilitation program, home exercise program, or functional confucianist program. -Policy guidelines regarding number and frequency of the procedure are obeyed. This patient is currently having severe, debilitating pain that necessitates urgent treatment. The patient is highly symptomatic (Tier 3a CMS guidelines). Pain symptoms are interfering with dally activity and quality of life. Treatment options are limited. This procedure was performed based on the following criteria: -The procedure is considered minimally Invasive. -The procedure requires very limited resources to perform, including limited use of any additional PPE. -the procedure will likely prevent this patient from seeking care at the hospital emergency room or other urgent care facility. This procedure is being performed due to medical necessity and to avoid further visits to the hospital or ER. This injection is being performed after evaluation and minimization of the risk involved in order to avoid unnecessary URINE DRUG SCREENING MEDICAL NECESSITY: [place] [...] opioid and medication therapies. Discussed potential for addiction/tolerance /abuse/diversion. Discussed Opioid Agreement in detail and answered [...] coordination of care required for this visit. 01/29/2025 Cervicalgia (ICD-10 - M54.2) imaging study has been reviewed and updated with the patient , and all the questions have been answered with satisfaction lumbar spine MRI study with and without contrast for lumbar radiculopathy/post- laminectomy syndrome has been ordered, UDS results has been confronted with the patient, and the medication compliance has been reinforced, patient verbalized understanding, UDS at next visit Refill [place] without change, 1 month supply given Increase Lyrica to 50 mg 2 tablets t.i.d., start night with slowly titrated up, side effects including drowsiness and body weight gain has been discussed with the patient and he verbalized understanding, 1 month supply given Continue follow-up with ID and completed full course cause off antibiotics, patient understands he needs clearance with ID for future interventional treatment versus revision surgery on the neck or the low back. Patient understands he has to wait over 1 year until the August 2025 if he is seeking surgical re-evaluation by different providers since Dr. Brody retired, we also talked about interventional pain on the neck pain shooting down into the left arm and fingers, epidural injection has been discussed with the patient. 08/05/2024 Cervicalgia (ICD-10 - M54.2) 01/01/2025 Cervicalgia (ICD-10 - M54.2) C-spine MRI study 12/03/24 has been reviewed, no hardware failure fusion with hardware intact, small disc bulging with annular tear at the C6-7 with mild central canal stenosis, no acute abnormality imaging study has been reviewed and updated with the patient , and all the questions have been answered with satisfaction Medication refilled without change We will follow-up Dr. Brody recommendation, if no surgical treatment on the neck recommended, we will consider cervical epidural steroid injection at C6-7 versus C7-T1 We discussed the advanced imaging study on lumbar spine but will defer after he seen by Dr Brody 11/27/2024 Cervicalgia (ICD-10 - M54.2) Medical record [...] dysfunction, patient would like to back to [place] as we gave to him previously , patient denies illicit drug use, patient wants to resume pregabalin and continue Robaxin. -OPIOID USAGE EVALUATION: Opioid risk: Denies ETOH or Drug abuse history. Analgesia effect: pain meds allowed patient to: standing /walking/ moving around Activity: independent ADL Adverse event: none Aberrant behavior: none reported UDS: Random urine testing based on risk stratification. 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 reviewed which is appropriate 11/27/24 Greater and lesser occipital block has been ordered for the occipital headache [place] 7.5 mg q.6 hours as needed, 120 [...] dysfunction, patient would like to back to [place] as we gave to him previously , patient denies illicit drug use, patient wants to resume pregabalin and continue Robaxin. -OPIOID USAGE EVALUATION: Opioid risk: Denies ETOH or Drug abuse history. Analgesia effect: pain meds allowed patient to: standing /walking/ moving around Activity: independent ADL Adverse event: none Aberrant behavior: none reported UDS: Random urine testing based on risk stratification. 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 reviewed which is appropriate 11/27/24 Greater and lesser occipital block has been ordered for the occipital headache [place] 7.5 mg q.6 hours as needed, 120 tablets for 30 day supply given no refills Pregabalin 50 mg t.i.d., 90 tablets for 30 day supply given Narcan spray given using as needed for narcotic overdose rescue 01/01/2025 Cervical spondylosis (ICD-10 - M47.812) C-spine MRI study 12/03/24 has been reviewed, no hardware failure fusion with hardware intact, small disc bulging with annular tear at the C6-7 with mild central canal stenosis, no acute abnormality imaging study has been reviewed and updated with the patient , and all the questions have been answered with satisfaction Medication refilled without change We will follow-up Dr. Brody recommendation, if no surgical treatment on the neck recommended, we will consider cervical epidural steroid injection at C6-7 versus C7-T1 We discussed the advanced imaging study on lumbar spine but will defer after he seen by Dr Brody 08/05/2024 Cervical spondylosis (ICD-10 - M47.812) 01/29/2025 Cervical spondylosis (ICD-10 - M47.812) imaging study has been reviewed and updated with the patient , and all the questions have been answered with satisfaction lumbar spine MRI study with and without contrast for lumbar radiculopathy/post- laminectomy syndrome has been ordered, UDS results has been confronted with the patient, and the medication compliance has been reinforced, patient verbalized understanding, UDS at next visit Refill [place] without change, 1 month supply given Increase Lyrica to 50 mg 2 tablets t.i.d., start night with slowly titrated up, side effects including drowsiness and body weight gain has been discussed with the patient and he verbalized understanding, 1 month supply given Continue follow-up with ID and completed full course cause off antibiotics, patient understands he needs clearance with ID for future interventional treatment versus revision surgery on the neck or the low back. Patient understands he has to wait over 1 year until the August 2025 if he is seeking surgical re-evaluation by different providers since Dr. Brody retired, we also talked about interventional pain on the neck pain shooting down into the left arm and fingers, epidural injection has been discussed with the patient. 02/26/2025 Cervical spondylosis (ICD-10 - M47.812) Medication refilled without change UDS today Follow-up with Dr. Brody recommendation after re-evaluation on 03/03/2025 -There is severe pain unresponsive to at least 4 weeks of conservative medical management. (e.g., physical therapy, pharmacological therapy, exercise). -The patient has significant radicular pain, radiculopathy or neurogenic claudication with associated functional impairment, supported by physical exam and correlates with radiographic evaluation (MRI or CT). - The exam shows pain distribution along specific nerve root with corresponding sensory changes, muscle weakness, or positive nerve root irritation sign. -Clinical findings and imaging studies suggest no other obvious cause of the pain (e.g., infection, tumor, fracture) and patient has no contraindications for the procedure. -Patient will continue with active rehabilitation program, home exercise program, or functional confucianist program. -Policy guidelines regarding number and frequency of the procedure are obeyed. This patient is currently having severe, debilitating pain that necessitates urgent treatment. The patient is highly symptomatic (Tier 3a CMS guidelines). Pain symptoms are interfering with dally activity and quality of life. Treatment options are limited. This procedure was performed based on the following criteria: -The procedure is considered minimally Invasive. -The procedure requires very limited resources to perform, including limited use of any additional PPE. -the procedure will likely prevent this patient from seeking care at the hospital emergency room or other urgent care facility. This procedure is being performed due to medical necessity and to avoid further visits to the hospital or ER. This injection is being performed after evaluation and minimization of the risk involved in order to avoid unnecessary URINE DRUG SCREENING MEDICAL NECESSITY: [place] [...] opioid and medication therapies. Discussed potential for addiction/tolerance /abuse/diversion. Discussed Opioid Agreement in detail and answered [...] coordination of care required for this visit. 04/30/2025 Cervical spondylosis (ICD-10 - M47.812) I did review Dr. 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-3 which is above the previous fusion level , patient has been referred to neurosurgeon at [place], [place] , initial visit appointment has been scheduled at the end of this month, I will send my note and follow-up the neurosurgeon recommendation, patient has been told no surgical treatment for about 1.5 years from the last surgery which was done at the end of 2023 , patient complains stiffness tightness on the upper back above the fusion level referring to the back and bilateral hip, likely from the L2-3 stenosis , patient also complains the pain shooting down into the foot and toes secondary to lumbar radiculopathy with some post-laminectomy syndrome, I think he may need either MILD decompression or the spinal cord stimulator Patient can not tolerate higher dose of Lyrica but does feel the benefit especially at night, patient is not tolerate Lyrica 100 mg b.i.d., I am going to split the daytime dose to 50 twice a day and continue taking 100 mg at night Refill [place] without change UDS reviewed which is appropriate 05/28/2025 Cervical spondylosis (ICD-10 - M47.812) Medication refil led without change, we will follow the neurosurgical recommendation and plan 03/26/2025 Cervical radiculopathy (ICD-10 - M54.12) The patient medication is reviewed. No change in efficacy or side effect of the medication. patient is tolerating activities of daily living with the use of the medications. Patient has no aberrant substance related behavior patterns. Risks stratification form completed. The patient will be tested based on risk stratification. Most recent UDS result/ [employer] reviewed Random urine testing performed today. Medication refilled without change He is y taking [place] this morning, medication refilled without change, we will obtain Dr. Brody note , the patient has lumbar brace, patient has been instructed using that intermittently only when he is working , as constantly using that may increase the chance of muscle weakness and make the low back pain getting worse for long-term run patient understands I am going to refer him to neurosurgeons seeking final the treatment plan, if no surgical treatment commended in next 6 month . consider a lumbar spine spinal cord stimulator to bridging to surgery. URINE DRUG SCREENING MEDICAL NECESSITY: [place] [...] opioid and medication therapies. Discussed potential for addiction/tolerance /abuse/diversion. Discussed Opioid Agreement in detail and answered [...] coordination of care required for this visit. 03/26/2025 Lumbar radiculopathy (ICD-10 - M54.16) The patient medication is reviewed. No change in efficacy or side effect of the medication. patient is tolerating activities of daily living with the use of the medications. Patient has no aberrant substance related behavior patterns. Risks stratification form completed. The patient will be tested based on risk stratification. Most recent UDS result/ [employer] reviewed Random urine testing performed today. Medication refilled without change He is y taking [place] this morning, medication refilled without change, we will obtain Dr. Brody note , the patient has lumbar brace, patient has been instructed using that intermittently only when he is working , as constantly using that may increase the chance of muscle weakness and make the low back pain getting worse for long-term run patient understands I am going to refer him to neurosurgeons seeking final the treatment plan, if no surgical treatment commended in next 6 month . consider a lumbar spine spinal cord stimulator to bridging to surgery. URINE DRUG SCREENING MEDICAL NECESSITY: [place] [...] opioid and medication therapies. Discussed potential for addiction/tolerance /abuse/diversion. Discussed Opioid Agreement in detail and answered [...] coordination of care required for this visit. 05/28/2025 Cervical radiculopathy (ICD-10 - M54.12) Medication refil led without change, we will follow the neurosurgical recommendation and plan 04/30/2025 Cervical radiculopathy (ICD-10 - M54.12) I did review Dr. 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-3 which is above the previous fusion level , patient has been referred to neurosurgeon at [place], [place] , initial visit appointment has been scheduled at the end of this month, I will send my note and follow-up the neurosurgeon recommendation, patient has been told no surgical treatment for about 1.5 years from the last surgery which was done at the end of 2023 , patient complains stiffness tightness on the upper back above the fusion level referring to the back and bilateral hip, likely from the L2-3 stenosis , patient also complains the pain shooting down into the foot and toes secondary to lumbar radiculopathy with some post-laminectomy syndrome, I think he may need either MILD decompression or the spinal cord stimulator Patient can not tolerate higher dose of Lyrica but does feel the benefit especially at night, patient is not tolerate Lyrica 100 mg b.i.d., I am going to split the daytime dose to 50 twice a day and continue taking 100 mg at night Refill [place] without change UDS reviewed which is appropriate 02/26/2025 Cervical radiculopathy (ICD-10 - M54.12) Medication refilled without change UDS today Follow-up with Dr. Brody recommendation after re-evaluation on 03/03/2025 -There is severe pain unresponsive to at least 4 weeks of conservative medical management. (e.g., physical therapy, pharmacological therapy, exercise). -The patient has significant radicular pain, radiculopathy or neurogenic claudication with associated functional impairment, supported by physical exam and correlates with radiographic evaluation (MRI or CT). - The exam shows pain distribution along specific nerve root with corresponding sensory changes, muscle weakness, or positive nerve root irritation sign. -Clinical findings and imaging studies suggest no other obvious cause of the pain (e.g., infection, tumor, fracture) and patient has no contraindications for the procedure. -Patient will continue with active rehabilitation program, home exercise program, or functional confucianist program. -Policy guidelines regarding number and frequency of the procedure are obeyed. This patient is currently having severe, debilitating pain that necessitates urgent treatment. The patient is highly symptomatic (Tier 3a CMS guidelines). Pain symptoms are interfering with dally activity and quality of life. Treatment options are limited. This procedure was performed based on the following criteria: -The procedure is considered minimally Invasive. -The procedure requires very limited resources to perform, including limited use of any additional PPE. -the procedure will likely prevent this patient from seeking care at the hospital emergency room or other urgent care facility. This procedure is being performed due to medical necessity and to avoid further visits to the hospital or ER. This injection is being performed after evaluation and minimization of the risk involved in order to avoid unnecessary URINE DRUG SCREENING MEDICAL NECESSITY: [place] [...] opioid and medication therapies. Discussed potential for addiction/tolerance /abuse/diversion. Discussed Opioid Agreement in detail and answered [...] coordination of care required for this visit. 01/29/2025 Cervical radiculopathy (ICD-10 - M54.12) imaging study has been reviewed and updated with the patient , and all the questions have been answered with satisfaction lumbar spine MRI study with and without contrast for lumbar radiculopathy/post- laminectomy syndrome has been ordered, UDS results has been confronted with the patient, and the medication compliance has been reinforced, patient verbalized understanding, UDS at next visit Refill [place] without change, 1 month supply given Increase Lyrica to 50 mg 2 tablets t.i.d., start night with slowly titrated up, side effects including drowsiness and body weight gain has been discussed with the patient and he verbalized understanding, 1 month supply given Continue follow-up with ID and completed full course cause off antibiotics, patient understands he needs clearance with ID for future interventional treatment versus revision surgery on the neck or the low back. Patient understands he has to wait over 1 year until the August 2025 if he is seeking surgical re-evaluation by different providers since Dr. Brody retired, we also talked about interventional pain on the neck pain shooting down into the left arm and fingers, epidural injection has been discussed with the patient. 01/01/2025 Cervical radiculopathy (ICD-10 - M54.12) C-spine MRI study 12/03/24 has been reviewed, no hardware failure fusion with hardware intact, small disc bulging with annular tear at the C6-7 with mild central canal stenosis, no acute abnormality imaging study has been reviewed and updated with the patient , and all the questions have been answered with satisfaction Medication refilled without change We will follow-up Dr. Brody recommendation, if no surgical treatment on the neck recommended, we will consider cervical epidural steroid injection at C6-7 versus C7-T1 We discussed the advanced imaging study on lumbar spine but will defer after he seen by Dr Brody 08/05/2024 Cervical radiculopathy (ICD-10 - M54.12) 11/27/2024 [...] dysfunction, patient would like to back to [place] as we gave to him previously , patient denies illicit drug use, patient wants to resume pregabalin and continue Robaxin. -OPIOID USAGE EVALUATION: Opioid risk: Denies ETOH or Drug abuse history. Analgesia effect: pain meds allowed patient to: standing /walking/ moving around Activity: independent ADL Adverse event: none Aberrant behavior: none reported UDS: Random urine testing based on risk stratification. 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 reviewed which is appropriate 11/27/24 Greater and lesser occipital block has been ordered for the occipital headache [place] 7.5 mg q.6 hours as needed, 120 tablets for 30 day supply given no refills Pregabalin 50 mg t.i.d., 90 tablets for 30 day supply given Narcan spray given using as needed for narcotic overdose rescue 02/26/2025 Lumbar radiculopathy (ICD-10 - M54.16) Medication refilled without change UDS today Follow-up with Dr. Brody recommendation after re-evaluation on 03/03/2025 -There is severe pain unresponsive to at least 4 weeks of conservative medical management. (e.g., physical therapy, pharmacological therapy, exercise). -The patient has significant radicular pain, radiculopathy or neurogenic claudication with associated functional impairment, supported by physical exam and correlates with radiographic evaluation (MRI or CT). - The exam shows pain distribution along specific nerve root with corresponding sensory changes, muscle weakness, or positive nerve root irritation sign. -Clinical findings and imaging studies suggest no other obvious cause of the pain (e.g., infection, tumor, fracture) and patient has no contraindications for the procedure. -Patient will continue with active rehabilitation program, home exercise program, or functional confucianist program. -Policy guidelines regarding number and frequency of the procedure are obeyed. This patient is currently having severe, debilitating pain that necessitates urgent treatment. The patient is highly symptomatic (Tier 3a CMS guidelines). Pain symptoms are interfering with dally activity and quality of life. Treatment options are limited. This procedure was performed based on the following criteria: -The procedure is considered minimally Invasive. -The procedure requires very limited resources to perform, including limited use of any additional PPE. -the procedure will likely prevent this patient from seeking care at the hospital emergency room or other urgent care facility. This procedure is being performed due to medical necessity and to avoid further visits to the hospital or ER. This injection is being performed after evaluation and minimization of the risk involved in order to avoid unnecessary URINE DRUG SCREENING MEDICAL NECESSITY: [place] [...] opioid and medication therapies. Discussed potential for addiction/tolerance /abuse/diversion. Discussed Opioid Agreement in detail and answered [...] coordination of care required for this visit. 03/26/2025 On jumbo operator drug therapy (ICD-10 - Z79.899) The patient medication is reviewed. No change in efficacy or side effect of the medication. patient is tolerating activities of daily living with the use of the medications. Patient has no aberrant substance related behavior patterns. Risks stratification form completed. The patient will be tested based on risk stratification. Most recent UDS result/ [employer] reviewed Random urine testing performed today. Medication refilled without change He is y taking [place] this morning, medication refilled without change, we will obtain Dr. Brody note , the patient has lumbar brace, patient has been instructed using that intermittently only when he is working , as constantly using that may increase the chance of muscle weakness and make the low back pain getting worse for long-term run patient understands I am going to refer him to neurosurgeons seeking final the treatment plan, if no surgical treatment commended in next 6 month . consider a lumbar spine spinal cord stimulator to bridging to surgery. URINE DRUG SCREENING MEDICAL NECESSITY: [place] [...] opioid and medication therapies. Discussed potential for addiction/tolerance /abuse/diversion. Discussed Opioid Agreement in detail and answered [...] coordination of care required for this visit. 05/28/2025 Lumbar radiculopathy (ICD-10 - M54.16) Medication refil led without change, we will follow the neurosurgical recommendation and plan 04/30/2025 Lumbar radiculopathy (ICD-10 - M54.16) I did review Dr. 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-3 which is above the previous fusion level , patient has been referred to neurosurgeon at [place], [place] , initial visit appointment has been scheduled at the end of this month, I will send my note and follow-up the neurosurgeon recommendation, patient has been told no surgical treatment for about 1.5 years from the last surgery which was done at the end of 2023 , patient complains stiffness tightness on the upper back above the fusion level referring to the back and bilateral hip, likely from the L2-3 stenosis , patient also complains the pain shooting down into the foot and toes secondary to lumbar radiculopathy with some post-laminectomy syndrome, I think he may need either MILD decompression or the spinal cord stimulator Patient can not tolerate higher dose of Lyrica but does feel the benefit especially at night, patient is not tolerate Lyrica 100 mg b.i.d., I am going to split the daytime dose to 50 twice a day and continue taking 100 mg at night Refill [place] without change UDS reviewed which is appropriate 05/28/2025 Other Learning About How to Have a Healthy Back material was published Medication refilled without change, we will follow the neurosurgical recommendation and plan 08/05/2024 Other Body Mass Index: Care Instructions [...] dysfunction, patient would like to back to [place] as we gave to him previously , patient denies illicit drug use, patient wants to resume pregabalin and continue Robaxin. -OPIOID USAGE EVALUATION: Opioid risk: Denies ETOH or Drug abuse history. Analgesia effect: pain meds allowed patient to: standing /walking/ moving around Activity: independent ADL Adverse event: none Aberrant behavior: none reported UDS: Random urine testing based on risk stratification. 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 reviewed which is appropriate 11/27/24 Greater and lesser occipital block has been ordered for the occipital headache [place] 7.5 mg q.6 hours as needed, 120 tablets for 30 day supply given no refills Pregabalin 50 mg t.i.d., 90 tablets for 30 day supply given Narcan spray given using as needed for narcotic overdose rescue 01/01/2025 Other Body Mass Index: Care Instructions material was published, High Blood Pressure: Care Instructions material was published C-spine MRI study 12/03/24 has been reviewed, no hardware failure fusion with hardware intact, small disc bulging with annular tear at the C6-7 with mild central canal stenosis, no acute abnormality imaging study has been reviewed and updated with the patient , and all the questions have been answered with satisfaction Medication refilled without change We will follow-up Dr. Brody recommendation, if no surgical treatment on the neck recommended, we will consider cervical epidural steroid injection at C6-7 versus C7-T1 We discussed the advanced imaging study on lumbar spine but will defer after he seen by Dr Brody 01/29/2025 Other Body Mass Index: Care Instructions material was published, High Blood Pressure: Care Instructions material was published imaging study has been reviewed and updated with the patient , and all the questions have been answered with satisfaction lumbar spine MRI study with and without contrast for lumbar radiculopathy/post- laminectomy syndrome has been ordered, UDS results has been confronted with the patient, and the medication compliance has been reinforced, patient verbalized understanding, UDS at next visit Refill [place] without change, 1 month supply given Increase Lyrica to 50 mg 2 tablets t.i.d., start night with slowly titrated up, side effects including drowsiness and body weight gain has been discussed with the patient and he verbalized understanding, 1 month supply given Continue follow-up with ID and completed full course cause off antibiotics, patient understands he needs clearance with ID for future interventional treatment versus revision surgery on the neck or the low back. Patient understands he has to wait over 1 year until the August 2025 if he is seeking surgical re-evaluation by different providers since Dr. Brody retired, we also talked about interventional pain on the neck pain shooting down into the left arm and fingers, epidural injection has been discussed with the patient. 02/26/2025 Other Body Mass Index: Care Instructions material was published, High Blood Pressure: Care Instructions material was published Medication refilled without change UDS today Follow-up with Dr. Brody recommendation after re-evaluation on 03/03/2025 -There is severe pain unresponsive to at least 4 weeks of conservative medical management. (e.g., physical therapy, pharmacological therapy, exercise). -The patient has significant radicular pain, radiculopathy or neurogenic claudication with associated functional impairment, supported by physical exam and correlates with radiographic evaluation (MRI or CT). - The exam shows pain distribution along specific nerve root with corresponding sensory changes, muscle weakness, or positive nerve root irritation sign. -Clinical findings and imaging studies suggest no other obvious cause of the pain (e.g., infection, tumor, fracture) and patient has no contraindications for the procedure. -Patient will continue with active rehabilitation program, home exercise program, or functional confucianist program. -Policy guidelines regarding number and frequency of the procedure are obeyed. This patient is currently having severe, debilitating pain that necessitates urgent treatment. The patient is highly symptomatic (Tier 3a CMS guidelines). Pain symptoms are interfering with dally activity and quality of life. Treatment options are limited. This procedure was performed based on the following criteria: -The procedure is considered minimally Invasive. -The procedure requires very limited resources to perform, including limited use of any additional PPE. -the procedure will likely prevent this patient from seeking care at the hospital emergency room or other urgent care facility. This procedure is being performed due to medical necessity and to avoid further visits to the hospital or ER. This injection is being performed after evaluation and minimization of the risk involved in order to avoid unnecessary URINE DRUG SCREENING MEDICAL NECESSITY: [place] [...] opioid and medication therapies. Discussed potential for addiction/tolerance /abuse/diversion. Discussed Opioid Agreement in detail and answered [...] coordination of care required for this visit. 03/26/2025 Other Learning About How to Have a Healthy Back material was published, Learning About Benefits of Quitting Smoking material was published The patient medication is reviewed. No change in efficacy or side effect of the medication. patient is tolerating activities of daily living with the use of the medications. Patient has no aberrant substance related behavior patterns. Risks stratification form completed. The patient will be tested based on risk stratification. Most recent UDS result/ [employer] reviewed Random urine testing performed today. Medication refilled without change He is y taking [place] this morning, medication refilled without change, we will obtain Dr. Brody note , the patient has lumbar brace, patient has been instructed using that intermittently only when he is working , as constantly using that may increase the chance of muscle weakness and make the low back pain getting worse for long-term run patient understands I am going to refer him to neurosurgeons seeking final the treatment plan, if no surgical treatment commended in next 6 month . consider a lumbar spine spinal cord stimulator to bridging to surgery. URINE DRUG SCREENING MEDICAL NECESSITY: [place] [...] opioid and medication therapies. Discussed potential for addiction/tolerance /abuse/diversion. Discussed Opioid Agreement in detail and answered [...] coordination of care required for this visit. 04/30/2025 Other Learning About How to Have a Healthy Back material was published, High Blood Pressure: Care Instructions material was published, Learning About Benefits of Quitting Smoking material was published I did review Dr. 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-3 which is above the previous fusion level , patient has been referred to neurosurgeon at [place], [place] , initial visit appointment has been scheduled at the end of this month, I will send my note and follow-up the neurosurgeon recommendation, patient has been told no surgical treatment for about 1.5 years from the last surgery which was done at the end of 2023 , patient complains stiffness tightness on the upper back above the fusion level referring to the back and bilateral hip, likely from the L2-3 stenosis , patient also complains the pain shooting down into the foot and toes secondary to lumbar radiculopathy with some post-laminectomy syndrome, I think he may need either MILD decompression or the spinal cord stimulator Patient can not tolerate higher dose of Lyrica but does feel the benefit especially at night, patient is not tolerate Lyrica 100 mg b.i.d., I am going to split the daytime dose to 50 twice a day and continue taking 100 mg at night Refill [place] without change UDS reviewed which is appropriate Plan Of Treatment Pending Test Test Name Order Date X ray : Spines, cervical 4 views 025 X ray : Spines, lumbar 4 views EtS (Alcohol Metabolite) - Urine 025 EtS (Alcohol Metabolite) - Urine 025 EtS (Alcohol Metabolite) - Urine 025 QMP Plus D/L - Urine 11/27/2024 QMP Plus D/L - Urine 01/29/2025 QMP Plus D/L - Urine 03/26/2025 Synthetic Stimulants 01/29/2025 Synthetic Stimulants 11/27/2024 Synthetic Stimulants 03/26/2025 Embossing Machine Operator Benzodiazepines 03/26/2025 Embossing Machine Operator Benzodiazepines 01/29/2025 Embossing Machine Operator Benzodiazepines 11/27/2024 Synthetic Cannabinoids 11/27/2024 Synthetic Cannabinoids 01/29/2025 Synthetic Cannabinoids 03/26/2025 Embossing Machine Operator Opioids 03/26/2025 Embossing Machine Operator Opioids 01/29/2025 Embossing Machine Operator Opioids 11/27/2024 Hallucinogens/Dissociatives 11/27/2024 Hallucinogens/Dissociatives 01/29/2025 Hallucinogens/Dissociatives 03/26/2025 COVERING MACHINE TENDER Other 01/29/2025 COVERING MACHINE TENDER Other 03/26/2025 COVERING MACHINE TENDER Other 11/27/2024 Marijuana - Urine 11/27/2024 Marijuana - Urine 03/26/2025 Marijuana - Urine 01/29/2025 PainComp Medication Compliance - Urine 0 01/29/2025 PainComp Medication Compliance - Urine 0 03/26/2025 PainComp Medication Compliance - Urine 0 11/27/2024 Aegis Required Information 11/27/2024 Aegis Required Information 01/29/2025 Aegis Required Information 03/26/2025 Next Appt Details Provider Name:Twan Castillo, 09/2024 09:30:00 AM, [address] [facility], [address], [place], [address], Insurance Providers Payer Name Payer Address Payer Phone Subscriber Number Group Number Insured Name Patient Relationship to Insured Coverage Start Date Coverage End Date [facility] [address] [place] [address] [phone] [id number] Tramaine Marin Self - patient is the insured Medications Administered Medication Instructions Date of Administration Dosage Notes Lumb / Sacro Transfor Epidural 1st Level 02/26/2025 bilateral L2- 3 trans Medical (General) History Medical History History ICD [...]
--- OUTSIDE RECORDS SUMMARY | 2025-06-04 15:55 | XMS_ITS | Clinical Summary ---
Author Organization [facility] Address [address] [place] [address] Care Team Providers Care Separator Inserter Name Role Phone Elton De La Fuente MD Primary Care Provider [phone] Allergies Active Allergy Reactions Criticality Noted Date Comments Pseudoephedrine Other (see comment) Low 06/02/2021 shakey Medications albuterol sulfate HFA 108 (90 Base) MCG/ACT inhaler Inhale 2 puffs into the lungs every 6 (six) hours as needed. 18 g 05/08/2024 Social History Tobacco Use Types Packs/Day Years [...] COVID-19 Vaccine (1 - 2023-2 5 season) 2025 Meningococcal B Vaccine Aged Out No l onger eligible based on patient's age to complete this topic Meningococcal Vaccine Aged Out No stacey glenroy eligible based on patient's age to complete this topic RSV Immunizations Under 20 Months Aged Out No longer eligible based on patient's age to complete this topic Insurance [facility] Care Teams Separator Inserter Relationship Specialty Start Date End Date Elton De La Fuente MD [address] [id number] PCP - General FAMILY PRACTICE 05/08/24
== END 2025-06-04 15:40 | disposition home or self-care (01) ==
LOC: CHSIMG 15:41
PROVIDERS: Visit Provider Nurse Practitioner Adult Health
DX: M54.50 Low back pain, unspecified (principal); Z98.890 Other specified postprocedural states
CPT/HCPCS: 72110; 72131